=== PATIENT | male | born 1945 | race Caucasian/White ===

== ENCOUNTER 2017-07-01 09:33 | Emergency (ER) | payer OTHER, MEDICARE, SELFPAY | END 2017-07-01 10:01 | PROVIDERS: Emergency Provider Emergency Medicine; Family Provider Internal Medicine Adolescent Medicine; PCP Internal Medicine Adolescent Medicine; Visit Provider Emergency Medicine | DX: S01.01XA Laceration without foreign body of scalp, initial encounter (principal); W01.198A Fall on same level from slipping, tripping and stumbling with subsequent striking against other object, initial encounter; Y92.69 Other specified industrial and construction area as the place of occurrence of the external cause; Y99.0 Civilian activity done for income or pay; Z23 Encounter for immunization; Z88.8 Allergy status to other drugs, medicaments and biological substances; K21.9 Gastro-esophageal reflux disease without esophagitis; D64.9 Anemia, unspecified | CPT/HCPCS: 12002; 90471; 90715; 99282 ==

== ENCOUNTER → 2017-08-27 | Outpatient (RCR) | payer MEDICARE, OTHER, SELFPAY | LOC: PT 03-23 12:56 | PROVIDERS: PCP Internal Medicine Adolescent Medicine; Visit Provider Internal Medicine Adolescent Medicine | DX: I89.0 Lymphedema, not elsewhere classified (principal) | CPT/HCPCS: G8987; G8988; G8989; 29580; 87070; 87081; 87186; 97140; 97163; 97530; 97597 ==

== ENCOUNTER → 2017-09-30 12:58 | Outpatient (REF) | payer MEDICARE, SELFPAY | LOC: LAB 12:58 | PROVIDERS: Visit Provider Internal Medicine Adolescent Medicine | DX: S81.801A Unspecified open wound, right lower leg, initial encounter (principal) | CPT/HCPCS: 87070; 87077; 87186; 87205 ==

== ENCOUNTER → 2017-11-29 11:34 | Outpatient (REF) | payer MEDICARE, SELFPAY | LOC: LAB 11:34 | PROVIDERS: Visit Provider Internal Medicine Adolescent Medicine | DX: L03.115 Cellulitis of right lower limb (principal) | CPT/HCPCS: 87070; 87077; 87186; 87205 ==

== ENCOUNTER 2018-04-04 11:29 | Inpatient (IN) ==
[2018-04-04 13:07] LABS: Basophils # 0.1 K/mm3 (0-0.2); Basophils % 0.7 % (0.1-2.0); Eosinophils # 0.7 K/mm3 (0.0-0.4); Eosinophils % 5.7 % (0.1-12.0); Hematocrit 39.3 % (42.0-52.0); Hemoglobin 12.7 g/dL (14.1-18.0); Lymphocytes # 2.6 K/mm3 (0.7-4.5); Lymphocytes % 20.7 K/mm3 (10-50); Mean Corpuscular HGB Conc 32.3 g/dL (31.8-35.4); Mean Corpuscular Hemoglobin 29.2 pg (27.0-31.2); Mean Corpuscular Volume 90.2 fl (80-94); Mean Platelet Volume 6.6 fl (7.4-10.4); Monocytes # 0.7 K/mm3 (0.1-1.0); Monocytes % 5.6 % (1.7-9.3); Neutrophils # 8.5 K/mm3 (1.8-7.8); Neutrophils % 67.3 % (37.0-80.0); Platelet Count 467 K/mm3 (142-424); Red Blood Count 4.35 M/mm3 (4.60-6.20); Red Cell Distribution Width 13.6 % (11.5-17.5); White Blood Count 12.6 K/mm3 (4.8-10.8)
[2018-04-04 13:16] LABS: Albumin Level 3.2 gm/dL (3.4-5.0); Albumin/Globulin Ratio 0.6 (1.1-1.8); Anion Gap 12.7 mEq/L (5-15); Bilirubin,Total 0.3 mg/dL (0.2-1.0); Calcium 8.4 mg/dL (8.5-10.1); Globulin 5.1 gm/dl (1.3-3.2); Potassium 4.7 mmoL/L (3.5-5.1); Total Protein,Serum 8.3 gm/dL (6.4-8.2)
--- NOTE | 2018-04-04 13:57 | Pharmacy Consult Notes ---
- Pharmacy Consult Date: 04/04/18 Time: 13:55 Referring provider: DR. MATIAS Reason for Consult:: VANCOMYCIN DOSING Allergies and ADEs:: Allergies Allergy/AdvReac Type Severity Reaction Status Date / Time Antihistamines - Alkylamine Allergy Mild MADE SKIN Verified 04/04/18 13:06 [ANTIHISTAMINES - ALKYLAMINE] FEEL LIKE ON FIRE NSAIDS (Non-Steroidal AdvReac Severe kidney Verified 04/04/18 12:08 Anti-Inflamma failure Home Medications:: Home Medications Medication Instructions Recorded Confirmed Type carvedilol 25 mg tablet 25 mg PO BID 30 Days #60 01/17/18 04/04/18 History fluticasone 50 mcg/actuation nasal 50 mcg INTRANASAL HS 60 Days #16 01/17/1802/14 History spray,suspension tamsulosin 0.4 mg capsule 0.4 mg PO DAILY 90 Days #90 01/17/18 04/04/18 History Aspirin [Aspirin 81mg chewable 81 mg PO DAILY 04/04/18 04/04/18 History tab] raNITIdine HCl [Ranitidine HCl] 150 mg PO BID 04/04/18 04/04/18 History Height: 1.73 m Weight: 129.019 kg Laboratory Results:: Laboratory Results - last 24 hr 04/04/18 12:51: WBC 12.6 H, RBC 4.35 L, Hgb 12.7 L, Hct 39.3 L, MCV 90.2, MCH 29.2, MCHC 32.3, RDW 13.6, Plt Count 467 H, MPV 6.6 L, Neut % (Auto) 67.3, Lymph % (Auto) 20.7, [place] % (Auto) 5.6, Eos % (Auto) 5.7, Baso % (Auto) 0.7, Neut # (Auto) 8.5 H, Lymph # (Auto) 2.6, [place] # (Auto) 0.7, Eos # (Auto) 0.7 H, Baso # (Auto) 0.1 04/04/18 12:51: Sodium 138, Potassium 4.7, Chloride 104, Carbon Dioxide 26, Anion Gap 12.7, BUN 18, Creatinine 1.23, Estimated Creat Clear 53, Estimated GFR 58 L, Est GFR ( Amer) 70, Glucose 98, Calcium 8.4 L, Total Bilirubin 0.3, AST 10 L, ALT 20, Alkaline Phosphatase 102, Total Protein 8.3 H, Albumin 3.2 L, Globulin 5.1 H, Albumin/Globulin Ratio 0.6 L Medical History: Reports:: Hypertension Denies:: Cancer, Diabetes Mellitus Type 1, Diabetes Mellitus Type 2, MRSA Assessment and Plan - Assessment and plan all Dx Assessment and Plan for all problems:: BASED ON PATIENT FACTORS, RECOMMEND VANCOMYCIN 2250 MG IV Q18H. PHARMACY WILL OBTAIN VANCOMYCIN TROUGH LEVEL PRIOR TO 4TH DOSE. PHARMACY WILL FOLLOW DAILY AND ADJUST APPROPRIATE.
--- NOTE | 2018-04-04 14:23 | Pharmacy Consult Notes ---
[facility] Pharmacy VTE Monitoring - Patient Demographics Admission date: 04/04/18 Report Date: 04/04/18 Time: 14:22 Allergies/Adverse Reactions: Patient Allergies Antihistamines - Alkylamine [ANTIHISTAMINES - ALKYLAMINE] Allergy (Mild, Verified 04/04/18 13:06) MADE SKIN FEEL LIKE ON FIRE NSAIDS (Non-Steroidal Anti-Inflamma Adverse Reaction (Severe, Verified 04/04/18 12:08) kidney failure Height: 1.73 m Weight: 129.019 kg - VTE Risk Labs: VTE Related Lab Results Hgb 12.7 g/dL (14.1-18.0) L 04/04/18 12:51 Hct 39.3 % (42.0-52.0) L 04/04/18 12:51 Plt Count 467 K/mm3 (142-424) H 04/04/18 12:51 BUN 18 mg/dL (7-18) 04/04/18 12:51 Creatinine 1.23 mg/dL (0.70-1.30) 04/04/18 12:51 Estimated Creat Clear 53 mL/min (0-300) 04/04/18 12:51 Was VTE Risk Assessment Performed: Yes VTE Score: 2 VTE Risk Level: Very Low Risk Clinical Trial Participant: No - Prophylaxis VTE Prophylaxis Ordered?: Yes Types of VTE Prophylaxis: TEDS Knee High
--- NOTE | 2018-04-04 17:42 | History & Physical Report ---
*Admission Date: 04/04/18 *Chief complaint: Left leg infection *History of present illness: 72-year-old white male with remote history in the late of an insect bite, possibly a brown recluse bite that caused significant tissue damage and chronic lymphedema as a residual effect of this injury. Since he has been my patient over the past 3-4 years he has had recurrent lymphedema problems, and recurrent cellulitis problems of the lower extremities , worse on the left. He came to the office today noting that yesterday he began to have foul- smelling drainage from all around the left calf, rivera and foot. In the office he was found to have exceedingly foul-smelling drainage from the knee down, in a circumferential very sharply demarcated area that corresponded to his recently placed lymphedema wrappings. There was a significant amount of sloughed skin both in between the toes and on the dorsum of the foot and up the rivera with exceedingly purulent material and foul-smelling drainage. Interestingly, over the past couple of months he has been seen by [facility] cardiology and has had vascular interventions to try to improve blood flow to both lower extremities. The left has been completed, the right side is pending with some type of procedure that he is unfamiliar with. Currently we have a record deficit. He has been treated multiple times in the [facility] lymphedema clinic with compression therapy and overall has been improving over the past several months. [facility] History I have reviewed the patient's past medical history: Yes Medical History: Reports:: Hypertension Denies:: Cancer, Diabetes Mellitus Type 1, Diabetes Mellitus Type 2, MRSA Other Medical History: Reports: Arthritis, Cataracts Comment: Chronic lymphedema. Chronic left lower extremity cellulitis. Peripheral arterial disease. Acute kidney injury secondary to NSAIDs Laterality Cases: Left: Total Hip Replacement Amputation: No - *Social History Educational Level: Completed College Smoking Status: Former smoker Tobacco Type: cigars # Packs/Day (cigarettes): 0 #Yrs smoked (if former smoker): 0 Alcohol Intake: never Alcohol Intake Frequency:: other Substance Use Type: denies use Occupational Status: employed Household Members: none - Psychiatric History Expresses thoughts of harming self/others: None Suicide Plan Description: No Plan *Family Hx:: Hypertension, Heart Attack Review of Systems - Review of Systems Review of systems:: pertinent systems reviewed and negative unless documented below - *Cardiovascular Reports leg swelling, Reports leg sores, Reports foot swelling, Denies shortness of breath, Denies irregular heart rhythm - *Respiratory Denies chest congestion, Denies cough - *Gastrointestinal Denies abdominal pain, Denies belching, Denies bloating, Denies change in bowel habits - *Genitourinary Reports difficulty urinating, Reports urinary urgency Meds Home Medications Medication Instructions Recorded Confirmed Type carvedilol 25 mg tablet 25 mg PO BID 30 Days #60 01/17/18 04/04/18 History fluticasone 50 mcg/actuation nasal 50 mcg INTRANASAL HS 60 Days #16 01/17/1802/14 History spray,suspension Aspirin [Aspirin 81mg chewable 81 mg PO DAILY 04/04/18 04/04/18 History tab] Tamsulosin HCl [Flomax 0.4mg 0.4 mg PO DAILY 04/04/18 04/04/18 History capsule] raNITIdine HCl [Ranitidine HCl] 150 mg PO BID 04/04/18 04/04/18 History Allergies Allergy/AdvReac Type Severity Reaction Status Date / Time Antihistamines - Alkylamine Allergy Mild MADE SKIN Verified 04/04/18 13:06 [ANTIHISTAMINES - ALKYLAMINE] FEEL LIKE ON FIRE NSAIDS (Non-Steroidal AdvReac Severe kidney Verified 04/04/18 12:08 Anti-Inflamma failure Exam Vital signs and Labs for Last 24 Hours: Temp Pulse Resp BP Pulse Ox 98.0 F 67 18 143/75 99 04/04/18 15:42 04/04/18 15:42 04/04/18 15:42 04/04/18 15:42 04/04/18 15:42 Laboratory Results - last 24 hr 04/04/18 12:51: WBC 12.6 H, RBC 4.35 L, Hgb 12.7 L, Hct 39.3 L, MCV 90.2, MCH 29.2, MCHC 32.3, RDW 13.6, Plt Count 467 H, MPV 6.6 L, Neut % (Auto) 67.3, Lymph % (Auto) 20.7, [place] % (Auto) 5.6, Eos % (Auto) 5.7, Baso % (Auto) 0.7, Neut # (Auto) 8.5 H, Lymph # (Auto) 2.6, [place] # (Auto) 0.7, Eos # (Auto) 0.7 H, Baso # (Auto) 0.1 04/04/18 12:51: Sodium 138, Potassium 4.7, Chloride 104, Carbon Dioxide 26, Anion Gap 12.7, BUN 18, Creatinine 1.23, Estimated Creat Clear 53, Estimated GFR 58 L, Est GFR ( Amer) 70, Glucose 98, Calcium 8.4 L, Total Bilirubin 0.3, AST 10 L, ALT 20, Alkaline Phosphatase 102, Total Protein 8.3 H, Albumin 3.2 L, Globulin 5.1 H, Albumin/Globulin Ratio 0.6 L I & O for Last 24 hours: Intake & Output 04/02/18 04/03/18 04/04/18 04/05/18 11:59 11:59 11:59 11:59 Intake Total 960 / 960 Output Total 600 / 600 Balance 360 / 360 Weight 284 lb 7 oz 284 lb 7 oz Microbiology Reports for the Last 24 Hours: Microbiology 04/04/18 12:51 Foot,Left Gram Stain - Final Narrative: Patient is pleasant, talkative, oriented in no distress. Cranial nerves intact. Cardiac exam is unremarkable with regular rate and rhythm, lungs are clear, abdomen is obese but soft. Leg examination is significantly abnormal as noted in my HPI. Redness, skin sloughing and foul-smelling drainage in a circumferential pattern around the entire left leg from just below the knee and a sharply demarcated stocking pattern down to the foot in between the toes and involving almost all of the toes. Weeping and purulent drainage from this entire area - the right leg is swollen with slight evidence of lymphedema but no evidence of cellulitis. H&P: Result - Labs Labs: Short CBC 04/04/18 Range/Units 12:51 WBC 12.6 H (4.8-10.8) K/mm3 Hgb 12.7 L (14.1-18.0) g/dL Hct 39.3 L (42.0-52.0) % Plt Count 467 H (142-424) K/mm3 BMP 04/04/18 12:51 Sodium 138 Potassium 4.7 Chloride 104 Carbon Dioxide 26 BUN 18 Creatinine 1.23 Glucose 98 Calcium 8.4 L Liver Function 08/06/18 Range/Units 12:51 Total Bilirubin 0.3 (0.2-1.0) mg/dL AST 10 L (15-37) U/L ALT 20 (12-78) U/L Alkaline Phosphatase 102 (46-116) U/L Albumin 3.2 L (3.4-5.0) gm/dL Assessment and Plan (1) Left leg cellulitis Current visit: Yes Status: Acute Category: Medical Code(s): L03.116 - Cellulitis of left lower limb Significant cellulitis with large area of leg involved. Requires IV antibiotics , admit for blood cultures. High risk of bloodstream infection. Currently no evidence of sepsis. Podiatry evaluation. Vancomycin and clindamycin for initial therapy while we await cultures. (2) Peripheral vascular disease Current visit: Yes Status: Acute Category: Medical Code(s): I73.9 - Peripheral vascular disease, unspecified Try to obtain records from [facility]. (3) Chronic acquired lymphedema Current visit: Yes Status: Acute Category: Medical Code(s): I89.0 - Lymphedema, not elsewhere classified See notes above. Continue observation (4) Morbid obesity with BMI of 40.0-44.9, adult Current visit: Yes Status: Acute Category: Medical Code(s): E66.01 - Morbid (severe) obesity due to excess calories; Z68.41 - Body mass index (BMI) 40.0-44.9, adult Obesity complicates all aspects of his care (5) Hypertension Current visit: Yes Status: Acute Category: Medical Code(s): I10 - Essential (primary) hypertension Remains on carvedilol (6) BPH (benign prostatic hyperplasia) Current visit: Yes Status: Acute Category: Medical Code(s): N40.0 - Benign prostatic hyperplasia without lower urinary tract symptoms Has some urgency symptoms on review of systems. Remains on tamsulosin
[2018-04-05 06:09] LABS: Basophils # 0.1 K/mm3 (0-0.2); Basophils % 0.7 % (0.1-2.0); Eosinophils # 0.5 K/mm3 (0.0-0.4); Eosinophils % 5.5 % (0.1-12.0); Lymphocytes # 2.5 K/mm3 (0.7-4.5); Lymphocytes % 27.3 K/mm3 (10-50); Mean Corpuscular HGB Conc 32.5 g/dL (31.8-35.4); Mean Corpuscular Hemoglobin 29.7 pg (27.0-31.2); Mean Corpuscular Volume 91.2 fl (80-94); Mean Platelet Volume 6.4 fl (7.4-10.4); Monocytes # 0.7 K/mm3 (0.1-1.0); Monocytes % 7.5 % (1.7-9.3); Neutrophils # 5.3 K/mm3 (1.8-7.8); Neutrophils % 58.9 % (37.0-80.0); Platelet Count 421 K/mm3 (142-424); Red Blood Count 3.85 M/mm3 (4.60-6.20); Red Cell Distribution Width 13.7 % (11.5-17.5); White Blood Count 9.1 K/mm3 (4.8-10.8)
[2018-04-05 06:17] LABS: Hemoglobin 11.6 g/dL (14.1-18.0)
[2018-04-05 06:18] LABS: Hematocrit 35.7 % (42.0-52.0)
[2018-04-05 06:31] LABS: Anion Gap 10.4 mEq/L (5-15); Potassium 4.4 mmoL/L (3.5-5.1)
--- NOTE | 2018-04-05 08:30 | Consult Report ---
*Admission Date: 04/04/18 *Chief complaint: Cellulitis *History of present illness: Mr. Mckeon is resting comfortably in bed. He reports some pain to the left 2- 3rd toes. Patient reports [facility] He reports several days after procedure there was increase fluid drainage and smell to the LLE. He is scheduled for vein surgery on right LE, in a few weeks. Patient saw Dr. Montana yesterday and was admitted for foul smelling left LE drainage. Per Dr. Montana 04/04/18: 72-year-old white male with remote history in the late of an insect bite, possibly a brown recluse bite that caused significant tissue damage and chronic lymphedema as a residual effect of this injury. Since he has been my patient over the past 3-4 years he has had recurrent lymphedema problems, and recurrent cellulitis problems of the lower extremities, worse on the left. He came to the office today noting that yesterday he began to have foul-smelling drainage from all around the left calf, rivera and foot. In the office he was found to have exceedingly foul-smelling drainage from the knee down, in a circumferential very sharply demarcated area that corresponded to his recently placed lymphedema wrappings. There was a significant amount of sloughed skin both in between the toes and on the dorsum of the foot and up the rivera with exceedingly purulent material and foul-smelling drainage. Interestingly, over the past couple of months he has been seen by [facility] cardiology and has had vascular interventions to try to improve blood flow to both lower extremities. The left has been completed, the right side is pending with some type of procedure that he is unfamiliar with. Currently we have a record deficit. He has been treated multiple times in the [facility] lymphedema clinic with compression therapy and overall has been improving over the past several months. Review of Systems - Review of Systems Review of systems:: pertinent systems reviewed and negative unless documented below - Constitutional Denies chills, Denies fatigue, Denies weakness - Eyes Denies blurry vision - ENT Denies abnormal hearing - *Cardiovascular Reports leg swelling, Denies shortness of breath - *Respiratory Denies cough, Denies shortness of breath - *Gastrointestinal Reports change in bowel habits, Reports loose stools - *Genitourinary Denies difficulty urinating - *Musculoskeletal Denies abnormal walking, Denies numbness - *Neurologic Denies abnormal walking [facility] History Medical History: Reports:: Hypertension Denies:: Cancer, Diabetes Mellitus Type 1, Diabetes Mellitus Type 2, MRSA Other Medical History: Reports: Arthritis, Cataracts Laterality Cases: Left: Total Hip Replacement Amputation: No - *Social History Educational Level: Completed College Smoking Status: Former smoker Tobacco Type: cigars # Packs/Day (cigarettes): 0 #Yrs smoked (if former smoker): 0 Alcohol Intake: never Alcohol Intake Frequency:: other Substance Use Type: denies use Occupational Status: employed Household Members: none - Psychiatric History Expresses thoughts of harming self/others: None Suicide Plan Description: No Plan *Family Hx:: Hypertension, Heart Attack Meds Home Medications Medication Instructions Recorded Confirmed Type carvedilol 25 mg tablet 25 mg PO BID 30 Days #60 01/17/18 04/04/18 History fluticasone 50 mcg/actuation nasal 1 spr INTRANASAL HS 60 Days #16 01/17/1803/16 History spray,suspension Aspirin [Aspirin 81mg chewable 81 mg PO DAILY 04/04/18 04/04/18 History tab] Tamsulosin HCl [Flomax 0.4mg 0.4 mg PO HS 04/04/18 04/05/18 History capsule] raNITIdine HCl [Ranitidine HCl] 150 mg PO BID 04/04/18 04/04/18 History Allergies Allergy/AdvReac Type Severity Reaction Status Date / Time Antihistamines - Alkylamine Allergy Mild MADE SKIN Verified 04/04/18 13:06 [ANTIHISTAMINES - ALKYLAMINE] FEEL LIKE ON FIRE NSAIDS (Non-Steroidal AdvReac Severe kidney Verified 04/04/18 12:08 Anti-Inflamma failure Exam Vital signs and Labs for Last 24 Hours: Temp Pulse Resp BP Pulse Ox 98.0 F 58 L 20 157/87 97 04/05/18 07:54 04/05/18 07:54 04/05/18 07:54 04/05/18 07:54 04/05/18 07:54 Laboratory Results - last 24 hr 04/04/18 12:51: WBC 12.6 H, RBC 4.35 L, Hgb 12.7 L, Hct 39.3 L, MCV 90.2, MCH 29.2, MCHC 32.3, RDW 13.6, Plt Count 467 H, MPV 6.6 L, Neut % (Auto) 67.3, Lymph % (Auto) 20.7, [place] % (Auto) 5.6, Eos % (Auto) 5.7, Baso % (Auto) 0.7, Neut # (Auto) 8.5 H, Lymph # (Auto) 2.6, [place] # (Auto) 0.7, Eos # (Auto) 0.7 H, Baso # (Auto) 0.1 04/04/18 12:51: Sodium 138, Potassium 4.7, Chloride 104, Carbon Dioxide 26, Anion Gap 12.7, BUN 18, Creatinine 1.23, Estimated Creat Clear 53, Estimated GFR 58 L, Est GFR ( Amer) 70, Glucose 98, Calcium 8.4 L, Total Bilirubin 0.3, AST 10 L, ALT 20, Alkaline Phosphatase 102, Total Protein 8.3 H, Albumin 3.2 L, Globulin 5.1 H, Albumin/Globulin Ratio 0.6 L 04/05/18 05:24: WBC 9.1 D, RBC 3.85 L, Hgb 11.6 L, Hct 35.7 L, MCV 91.2, MCH 29.7, MCHC 32.5, RDW 13.7, Plt Count 421, MPV 6.4 L, Neut % (Auto) 58.9, Lymph % (Auto) 27.3, [place] % (Auto) 7.5, Eos % (Auto) 5.5, Baso % (Auto) 0.7, Neut # ( Auto) 5.3, Lymph # (Auto) 2.5, [place] # (Auto) 0.7, Eos # (Auto) 0.5 H, Baso # ( Auto) 0.1 04/05/18 05:24: Sodium 139, Potassium 4.4, Chloride 107, Carbon Dioxide 26, Anion Gap 10.4, BUN 17, Creatinine 1.17, Estimated Creat Clear 56, Estimated GFR 61, Est GFR ( Amer) 74, Glucose 97, Calcium 8.0 L I & O for Last 24 hours: Intake & Output 04/02/18 04/03/18 04/04/1807/18 11:59 11:59 11:59 11:59 Intake Total 1200 / 1200 Output Total 850 / 850 Balance 350 / 350 Weight 284 lb 7 oz 284 lb 7 oz Microbiology Reports for the Last 24 Hours: Microbiology 04/04/18 12:51 Foot,Left Gram Stain - Final 04/04/18 12:51 Foot,Left Wound Culture - Preliminary Gram Negative Rods - *Routine HEENT Exam Head: Present: normocephalic - *Routine Neck Exam Absent: JVD - *Routine Respiratory Exam Absent: respiratory distress - *Routine Cardiovascular Exam Present: RRR - *Routine Abdominal Exam Present: soft. Absent: guarding - *Routine Rectal Exam Patient deferred: visual exam - *Routine Exam Patient deferred: penile exam - *Routine Extremities Exam Present: edema, pulses intact, normal capillary refill, tenderness - *Routine Skin Exam Present: erythema - *Routine Neurological Exam Present: alert - Detailed Lower Extremity Exam Foot/Toes: Left swelling (L 2-3rd toes), Left tenderness (L 2-3rd toes) Comments: Palpable pedal pulses noted b/l. CFT wnl. No open wounds on right LE. The right leg is swollen with slight evidence of lymphedema but no evidence of cellulitis. There is 1+ pitting edema noted to LLE. Redness, skin sloughing noted from gator ankle region, in a circumferential pattern. No malodor noted. No active weeping and purulent drainage. There is erythema with no deep wounds noted to the lateral left foot/ankle. The left 2-3rd toes have POP, edema and erythema with no open wounds or areas that probe deeply. No increased skin temp. Results - Labs Result Diagrams: 04/05/18 05:24 04/05/18 05:24 Labs: Abnormal lab results 04/04/18 04/04/18 04/05/18 Range/Units 12:51 12:51 05:24 WBC 12.6 H (4.8-10.8) K/mm3 RBC 4.35 L 3.85 L (4.60-6.20) M/mm3 Hgb 12.7 L 11.6 L (14.1-18.0) g/dL Hct 39.3 L 35.7 L (42.0-52.0) % Plt Count 467 H (142-424) K/mm3 MPV 6.6 L 6.4 L (7.4-10.4) fl Neut # (Auto) 8.5 H (1.8-7.8) K/mm3 Eos # (Auto) 0.7 H 0.5 H (0.0-0.4) K/mm3 Estimated GFR 58 L (>60) ml/min Calcium 8.4 L (8.5-10.1) mg/dL AST 10 L (15-37) U/L Total Protein 8.3 H (6.4-8.2) gm/dL Albumin 3.2 L (3.4-5.0) gm/dL Globulin 5.1 H (1.3-3.2) gm/dl Albumin/Globulin Ratio 0.6 L (1.1-1.8) 04/05/18 Range/Units 05:24 WBC (4.8-10.8) K/mm3 RBC (4.60-6.20) M/mm3 Hgb (14.1-18.0) g/dL Hct (42.0-52.0) % Plt Count (142-424) K/mm3 MPV (7.4-10.4) fl Neut # (Auto) (1.8-7.8) K/mm3 Eos # (Auto) (0.0-0.4) K/mm3 Estimated GFR (>60) ml/min Calcium 8.0 L (8.5-10.1) mg/dL AST (15-37) U/L Total Protein (6.4-8.2) gm/dL Albumin (3.4-5.0) gm/dL Globulin (1.3-3.2) gm/dl Albumin/Globulin Ratio (1.1-1.8) H & H 18 04/05/18 Range/Units 12:51 05:24 Hgb 12.7 L 11.6 L (14.1-18.0) g/dL Hct 39.3 L 35.7 L (42.0-52.0) % All other labs normal. - Diagnostic results Ankle/Foot x-ray: pending Assessment and Plan (1) Left leg cellulitis Current visit: Yes Status: Acute Category: Medical Code(s): L03.116 - Cellulitis of left lower limb (2) Peripheral vascular disease Current visit: Yes Status: Acute Category: Medical Code(s): I73.9 - Peripheral vascular disease, unspecified (3) Chronic acquired lymphedema Current visit: Yes Status: Acute Category: Medical Code(s): I89.0 - Lymphedema, not elsewhere classified (4) Morbid obesity with BMI of 40.0-44.9, adult Current visit: Yes Status: Acute Category: Medical Code(s): E66.01 - Morbid (severe) obesity due to excess calories; Z68.41 - Body mass index (BMI) 40.0-44.9, adult (5) Hypertension Current visit: Yes Status: Acute Category: Medical Code(s): I10 - Essential (primary) hypertension (6) BPH (benign prostatic hyperplasia) Current visit: Yes Status: Acute Category: Medical Code(s): N40.0 - Benign prostatic hyperplasia without lower urinary tract symptoms - Assessment and plan all Dx Assessment and Plan for all problems:: LLE Cellulitis: Discussed cellulitis with the patient. Likely after his procedure last week he had a hypervascular response with increased lymph drainage. Will order x-rays to rule out underlying soft tissue gas infection no open wound or obvious signs of osteomyelitis. Patient seems to be responding to the IV antibiotics consistent with cellulitis, improved clinical symptoms and decreased wbc. 1. X-rays left foot and ankle 3 views 2. If x-rays negative for gas infection, canceling n.p.o. and no surgical intervention planned 3. Continue IV antibiotics: Vanco, clindamycin 4. Continue compressive wraps to bilateral LE 5. Upon discharge, RLE will need compression stockings 6. Obtain medical records from [facility] for Dr. Velazquez's procedure
--- NOTE | 2018-04-05 17:26 | Progress Note ---
Internal Medicine - PN: Subj *Date: 04/05/18 *Time: 17:19 Interval history: Patient has remained afebrile overnight. Improvement in malodorous nature of wound. Assessed by podiatry this morning with new bandages placed. Improvement drainage and warmth after initiation of IV antibiotics. Denies any nausea, vomiting, diarrhea, confusion, significant pain in lower extremity. Requesting his home meds even though he is n.p.o. Exam Vital signs and Labs for Last 24 Hours: Temp Pulse Resp BP Pulse Ox 97.9 F 59 L 20 132/62 97 04/05/18 15:53 04/05/18 15:53 04/05/18 15:53 04/05/18 15:53 04/05/18 15:53 Laboratory Results - last 24 hr 04/05/18 05:24: WBC 9.1 D, RBC 3.85 L, Hgb 11.6 L, Hct 35.7 L, MCV 91.2, MCH 29.7, MCHC 32.5, RDW 13.7, Plt Count 421, MPV 6.4 L, Neut % (Auto) 58.9, Lymph % (Auto) 27.3, Mccreary % (Auto) 7.5, Eos % (Auto) 5.5, Baso % (Auto) 0.7, Neut # ( Auto) 5.3, Lymph # (Auto) 2.5, Mccreary # (Auto) 0.7, Eos # (Auto) 0.5 H, Baso # ( Auto) 0.1 04/05/18 05:24: Sodium 139, Potassium 4.4, Chloride 107, Carbon Dioxide 26, Anion Gap 10.4, BUN 17, Creatinine 1.17, Estimated Creat Clear 56, Estimated GFR 61, Est GFR ( Amer) 74, Glucose 97, Calcium 8.0 L I & O for Last 24 hours: Intake & Output 04/02/18 04/03/18 04/04/18 04/05/18 23:59 23:59 23:59 23:59 Intake Total 1200 / 1200 578 / 578 Output Total 850 / 850 1875 / 1875 Balance 350 / 350 -1297 / -1297 Weight 129.019 kg Microbiology Reports for the Last 24 Hours: Microbiology 04/04/18 12:51 Foot,Left Gram Stain - Final 04/04/18 12:51 Foot,Left Wound Culture - Preliminary Gram Negative Rods - *Routine HEENT Exam Head: Present: normocephalic, atraumatic Eye: Present: EOMI, PERRL ENT: Present: mucous membranes moist - *Routine Neck Exam Present: supple. Absent: lymphadenopathy - *Routine Respiratory Exam Present: CTA bilaterally. Absent: rales, stridor, wheezes - *Routine Cardiovascular Exam Present: RRR, Normal S1, Normal S2 - *Routine Abdominal Exam Present: soft, normoactive bowel sounds - *Routine Rectal Exam Patient deferred: visual exam - *Routine Exam Patient deferred: penile exam - *Routine Extremities Exam Present: edema Comments: Diminished pulses bilateral lower extremities in both DP and posterior tibial. New dressings in place with iodine on left foot. Chronic venous stasis changes in visible portion of lower extremity outside of bandage. Capillary refill intact in toes, sensation intact in toes. - *Routine Skin Exam Present: intact. Absent: cyanosis - *Routine Neurological Exam Present: alert, oriented X3 Assessment and Plan (1) Left leg cellulitis Current visit: Yes Status: Acute Category: Medical Code(s): L03.116 - Cellulitis of left lower limb (2) Peripheral vascular disease Current visit: Yes Status: Acute Category: Medical Code(s): I73.9 - Peripheral vascular disease, unspecified (3) Chronic acquired lymphedema Current visit: Yes Status: Acute Category: Medical Code(s): I89.0 - Lymphedema, not elsewhere classified (4) Morbid obesity with BMI of 40.0-44.9, adult Current visit: Yes Status: Acute Category: Medical Code(s): E66.01 - Morbid (severe) obesity due to excess calories; Z68.41 - Body mass index (BMI) 40.0-44.9, adult (5) Hypertension Current visit: Yes Status: Acute Category: Medical Code(s): I10 - Essential (primary) hypertension (6) BPH (benign prostatic hyperplasia) Current visit: Yes Status: Acute Category: Medical Code(s): N40.0 - Benign prostatic hyperplasia without lower urinary tract symptoms - Assessment and plan all Dx Assessment and Plan for all problems:: Mr. Mckeon is a 72-year-old male with chronic venous stasis, obesity, peripheral vascular disease who presented with cellulitis of the left foot. Podiatry has assessed the patient and has low suspicion for osteomyelitis. -Podiatry continues to follow along, appreciate recommendations. They feel this may be related to increased vascular supply due to revascularization recently with increased lymphatic drainage putting patient at risk for infection. -Obtaining x-rays of left foot and ankle today -Continue IV antibiotics, responded well -Continue compressive wraps on bilateral lower extremity -If no surgical intervention, de-escalate to oral antibiotics over the next 24- 48 hours and plan for discharge home with outpatient follow-up -Dr. Velazquez records in chart.
--- NOTE | 2018-04-06 07:52 | Discharge Summary ---
General - General Admission date:: 04/04/18 Discharge date: 04/06/18 HPI HPI: Mr. Mckeon is resting comfortably in bed. He reports some pain to the left 2- 3rd toes. Patient reports having a "vein procedure" with Dr. Velazquez at [facility] last week. He reports several days after procedure there was increase fluid drainage and smell to the LLE. He is scheduled for vein surgery on right LE, in a few weeks. Patient saw Dr. Montana yesterday and was admitted for foul smelling left LE drainage. Per Dr. Montana 04/04/18: 72-year-old white male with remote history in the late of an insect bite, possibly a brown recluse bite that caused significant tissue damage and chronic lymphedema as a residual effect of this injury. Since he has been my patient over the past 3-4 years he has had recurrent lymphedema problems, and recurrent cellulitis problems of the lower extremities, worse on the left. He came to the office today noting that yesterday he began to have foul-smelling drainage from all around the left calf, rivera and foot. In the office he was found to have exceedingly foul-smelling drainage from the knee down, in a circumferential very sharply demarcated area that corresponded to his recently placed lymphedema wrappings. There was a significant amount of sloughed skin both in between the toes and on the dorsum of the foot and up the rivera with exceedingly purulent material and foul-smelling drainage. Interestingly, over the past couple of months he has been seen by [facility] cardiology and has had vascular interventions to try to improve blood flow to both lower extremities. The left has been completed, the right side is pending with some type of procedure that he is unfamiliar with. Currently we have a record deficit. He has been treated multiple times in the [facility] lymphedema clinic with compression therapy and overall has been improving over the past several months. Above notes per me and Dr. Brito. Hospital Course Hospital Course: Patient was admitted to hospital. Podiatry consult was obtained, reviewed and appreciated. X-rays were obtained showing no gas formation under the skin and patient responded well to IV antibiotics. Initial Gram stain showed gram-negative rods on the surface of the leg. Patient did well this morning, feeling well, eating well, no fevers. Determination was made that patient could be discharged with ongoing wrapping, Augmentin therapy and close follow-up in the office with podiatry and with lymphedema clinic. Objective Vital signs: Temp Pulse Resp BP Pulse Ox 97.8 F 54 L 16 142/65 93 L 04/06/18 04:00 04/06/18 04:00 04/06/18 04:00 04/06/18 04:00 04/06/18 04:00 Narrative: Patient is alert and pleasant and oriented today. Cardiopulmonary assessment unremarkable. Patient's left leg is wrapped from the knee to the toes, there is apparently less swelling. Patient denies pain. Able to wiggle the toes outside of the dressing well. Right side lower extremity is slightly swollen but at baseline, no evidence of cellulitis. Results Labs on day of discharge: Preliminary micro results at discharge 04/04/18 12:51 Wound Culture - Preliminary Foot,Left Gram Negative Rods DS: Diagnosis - Discharge Diagnosis (1) Left leg cellulitis Status: Acute (2) Peripheral vascular disease Status: Acute (3) Chronic acquired lymphedema Status: Acute (4) Morbid obesity with BMI of 40.0-44.9, adult Status: Acute (5) Hypertension Status: Acute (6) BPH (benign prostatic hyperplasia) Status: Acute Discharge Plan - Patient Discharge Instructions ACTIVITY: Continue current activity DIET: continue same diet - Follow up Plan Follow up with: Keila Brito DPM [Staff Physician] - 2 days Unknown provider or service follow up:: 04/06/18 07:50 Lymphedema clinic in 24 hours Disposition: Home, Self-Halfway Medications: Home Medications Medication Instructions Recorded Confirmed Type carvedilol 25 mg tablet 25 mg PO BID 30 Days #60 01/17/18 04/04/18 History fluticasone 50 mcg/actuation nasal 1 spr INTRANASAL HS 60 Days #16 01/17/1803/16 History spray,suspension Aspirin [Aspirin 81mg chewable 81 mg PO DAILY 04/04/18 04/04/18 History tab] Tamsulosin HCl [Flomax 0.4mg 0.4 mg PO HS 04/04/18 04/05/18 History capsule] raNITIdine HCl [Ranitidine HCl] 150 mg PO BID 04/04/18 04/04/18 History Prescriptions/Medication Reconciliation: New Amoxicillin/Potassium Clav [Augmentin 875-125 Tablet] 1 tab PO Q12H #20 tab Continue carvedilol 25 mg tablet 25 mg PO BID 30 Days #60 fluticasone 50 mcg/actuation nasal spray,suspension 1 spr INTRANASAL HS 60 Days #16 raNITIdine HCl [Ranitidine HCl] 150 mg PO BID Aspirin [Aspirin 81mg chewable tab] 81 mg PO DAILY Tamsulosin HCl [Flomax 0.4mg capsule] 0.4 mg PO HS
--- NOTE | 2018-04-06 08:09 | Progress Note ---
Subjective Date: 04/06/18 Time: 07:45 Principal diagnosis: LLE Cellulitis Interval history: Patient is resting comfortably in bed. He denies nausea vomiting, fever chills , shortness of breath and chest pain. Pain to the left foot has significantly decreased. No pain to the right foot. PN: Obj Ex Vital signs: Temp Pulse Resp BP Pulse Ox 97.8 F 54 L 16 142/65 93 L 04/06/18 04:00 04/06/18 04:00 04/06/18 04:00 04/06/18 04:00 04/06/18 04:00 - Constitutional no acute distress - Routine Neck Exam Present: supple - Routine Extremities Exam Present: edema (improving). Absent: calf tenderness, tenderness - Detailed Lower Extremity Exam Foot/Toes: Left swelling (L 2-3rd toes improving) Comments: The edema has improved to both legs. RLE asymptomatic. There is dry flaky skin noted to both legs and feet. Mild skin sloughing and erythema noted to the lateral aspect of the left ankle. No open wound. The left first through third digits are dry with no skin sloughing noted. Less pain to palpation. Skin temp WNL. Erythema resolved to toes. Progress Note: A&P (1) Left leg cellulitis Status: Acute Current Visit: Yes (2) Peripheral vascular disease Status: Acute Current Visit: Yes (3) Chronic acquired lymphedema Status: Acute Current Visit: Yes (4) Morbid obesity with BMI of 40.0-44.9, adult Status: Acute Current Visit: Yes (5) Hypertension Status: Acute Current Visit: Yes (6) BPH (benign prostatic hyperplasia) Status: Acute Current Visit: Yes Assessment and Plan for All Diagnoses:: LLE Cellulitis: Overall both legs look to be much improved. Right leg is asymptomatic. No dressing reapplied to the right lower extremity. New dressing applied to the left lower extremity with Betadine between the toes and to the left lateral aspect of the ankle. Okay from podiatry standpoint to be discharged home today on oral antibiotics. 1. POC discussed with Dr. Montana 2. Betadine DSD applied to the LLE, maintain C/D/I until follow up 3. Ok to d/c from Podiatry stand point on oral Abx 4. Compression stockings to RLE 5. Will need follow up next week with [facility] for compression therapy 6. Follow up with Podiatry 04/08/18 @0900 for LLE dressing change
== END 2018-04-06 09:26 | disposition home or self-care (01) ==
LOC: 2ND 11:31
PROVIDERS: ADMIT Internal Medicine Adolescent Medicine; ATTEND Internal Medicine Adolescent Medicine

== ENCOUNTER 2018-04-22 14:30 | Outpatient (RCR) | payer MEDICARE, OTHER, SELFPAY ==
--- NOTE | 2017-09-15 15:41 | HMH.PTOPWND ---
Rehab Outpt Wound Evaluation Rehab OP Wound Evaluation Start: 09/13/17 16:04 Freq: Status: Active Protocol: Document 09/13/17 16:04 PAWAN (Rec: 09/13/17 16:22 PHORNE [id number]) Electronically Signed By Jarad Gomes, PT 09/13/17 16:04 Subjective/History History History Pt presents with c/o increased edema and pain in left LE with painful open sores x ~1-2 wks. Pt has been treated extensively in the past for similar conditions and presents to clinic this date with copious drainage and muliple blisters in the left lower leg. He has hx of left CESAR ~ 1-2 yrs ago. Subjective Subjective Pt c/o significant pain throughout the left lower leg, worse along the medial left foot. Wound Eval Side Left Side left Wound Left Medial Foot Wound Type Stasis Ulcer Is This a Chronic Wound No Degree of Burn Partial Thickness Wound Length (cm) 2.0 Wound Width (cm) 3.5 Wound Bed Appearance Dusky Red Yellow Slough Blisters Edematous Percentage Granulated (%) 25 Percentage of Slough (%) 75 Wound Margins Description Macerated Edema Type Pitting Edema Degree 2+ Query Text:1+ Trace, Barely Detectable, Rebound 15-30 seconds 2+ Moderate, Slight Indentation, Rebound 10-20 seconds 3+ Deep, Deeper Indentation, Rebound > 30 seconds 4+ Very Deep, Rebound > 60 seconds Edema Appearance Weeping Puffy Open Sores Red Surrounding Tissue Temperature Warm Drainage Description Serosanguineous Drainage Amount Copious Drainage Odor Slight Odor Dressing Status Changed Wound Topical Solution/Irrigant Saline Irrigant Packing Type Alginate Primary Dressing Unna Boot Wound Secondary Dressing Type Gauze Roll/Wrap Adhering Gauze Roll Wound Debridement Method Mechanical Wound Debridement Amount of Tissue None Removed Dressing Change Dioni
--- NOTE | 2018-01-27 11:31 | HMH.RHREAS ---
Rehab Reassessment Rehab OP Re-assessment Start: 10/21/17 15:18 Freq: Status: Active Protocol: Document 01/27/18 11:27 PAWAN (Rec: 01/27/18 11:30 PAWAN [id number]) Electronically Signed By Jarad Gomes, PT 01/27/18 11:27 Rehab Re-assessment Subjective Subjective Pt continues to reports stinging and burning pain and discomfort in left LE. He also reports continued drainage from left LE. 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 All wounds appear superficial to partial thickness in nature. Assessment Progress Assessment Slower Than Expected Assessment Notes Healing in left LE, copious drainage of serpous fluid and pitting edema remain. Patient goals met ST,3,[address] LT [address]als Not Met ST LT,2,3,4 Revised Goals none Plan Plan Continue per initial POC. Frequency of Therapy 2x/wk Duration of therapy 8 wks Time and Billing Re-Eval Time 15 Re-Eval Billing Units 1 PHYSICIAN CERTIFICATION: I certify the specified therapy services for Riki Mckeon are required, authorized, and reviewed every 30 days.
== END 2018-04-22 14:31 | disposition home or self-care (01) ==
LOC: PT 14:30
PROVIDERS: Family Provider Internal Medicine Adolescent Medicine; PCP Internal Medicine Adolescent Medicine; Visit Provider Internal Medicine Adolescent Medicine
DX: I89.0 Lymphedema, not elsewhere classified (principal)
CPT/HCPCS: 29580; 97140; 97162; 97164; 97597; 97598

== ENCOUNTER → 2018-09-14 09:44 | Outpatient (CLI) | payer MEDICARE, OTHER, SELFPAY | PROVIDERS: Visit Provider Podiatrist | DX: I89.0 Lymphedema, not elsewhere classified (principal) | CPT/HCPCS: 87070; 87077; 87186; 87205 ==

== ENCOUNTER → 2018-11-17 15:43 | Outpatient (CLI) | payer MEDICARE, OTHER, SELFPAY | PROVIDERS: Visit Provider Podiatrist | DX: L03.116 Cellulitis of left lower limb (principal) | CPT/HCPCS: 87070; 87077; 87186; 87205 ==

== ENCOUNTER → 2018-12-14 06:58 | Outpatient (CLI) | payer MEDICARE, OTHER, SELFPAY ==
[2018-12-14 10:42] LABS: Alanine Aminotransferase 23 U/L (12-78); Albumin Level 3.4 gm/dL (3.4-5.0); Albumin/Globulin Ratio 0.9 (1.1-1.8); Alkaline Phosphatase 106 U/L (46-116); Aspartate Amino Transferase 10 U/L (15-37); Bilirubin,Total 0.3 mg/dL (0.2-1.0); Blood Urea Nitrogen 25 mg/dL (7-18); Calcium 8.1 mg/dL (8.5-10.1); Carbon Dioxide 24 mmol/L (21.0-32.0); Chloride 106 mmol/L (98-107); Cholesterol 146 mg/dL (140-200); Creatinine,Serum 1.37 mg/dL (0.70-1.30); Estimated Glomerular Filt Rate 51 ml/min (>60); GFR (African American) 62 ML/MIN (>60); Globulin 3.9 gm/dl (1.3-3.2); Glucose 106 mg/dL (74-106); HDL Cholesterol 49 mg/dL (27-67); LDL Cholesterol 81 mg/dL (0-130); Prostate Specific Ag, Diagnost 1.69 ng/mL (0.0-4.0); Sodium 140 mmol/L (136-145); Total Protein,Serum 7.3 gm/dL (6.4-8.2); Triglycerides 82 mg/dL (30-200); VLDL Cholesterol 16 mg/dL (0-40)
[2018-12-14 12:36] LABS: Basophils # 0.1 K/mm3 (0-0.2); Basophils % 0.9 % (0.1-2.0); Eosinophils # 0.5 K/mm3 (0.0-0.4); Eosinophils % 6.2 % (0.1-12.0); Hematocrit 42.7 % (42.0-52.0); Hemoglobin 13.7 g/dL (14.1-18.0); Lymphocytes # 2.5 K/mm3 (0.7-4.5); Lymphocytes % 30.1 % (10-50); Mean Corpuscular HGB Conc 31.9 g/dL (31.8-35.4); Mean Corpuscular Hemoglobin 29.3 pg (27.0-31.2); Mean Corpuscular Volume 91.8 fl (80-94); Mean Platelet Volume 7.3 fl (7.4-10.4); Monocytes # 0.6 K/mm3 (0.1-1.0); Monocytes % 7.4 % (1.7-9.3); Neutrophils # 4.5 K/mm3 (1.8-7.8); Neutrophils % 55.3 % (37.0-80.0); Platelet Count 332 K/mm3 (142-424); Red Blood Count 4.66 M/mm3 (4.60-6.20); Red Cell Distribution Width 14.2 % (11.5-17.5); White Blood Count 8.2 K/mm3 (4.8-10.8)
== END ==
PROVIDERS: Visit Provider Internal Medicine Adolescent Medicine
DX: Z86.2 Personal history of diseases of the blood and blood-forming organs and certain disorders involving the immune mechanism (principal); E78.5 Hyperlipidemia, unspecified; N40.1 Benign prostatic hyperplasia with lower urinary tract symptoms
CPT/HCPCS: 36415; 80053; 80061; 84153; 85025

== ENCOUNTER → 2019-02-07 13:26 | Outpatient (CLI) | payer MEDICARE, OTHER, SELFPAY | PROVIDERS: PCP Podiatrist; Visit Provider Podiatrist | DX: S81.801D Unspecified open wound, right lower leg, subsequent encounter (principal) | CPT/HCPCS: 87070; 87077; 87186; 87205 ==

== ENCOUNTER → 2019-04-17 11:24 | Outpatient (CLI) | payer MEDICARE, OTHER, SELFPAY ==
--- NOTE | 2019-04-17 11:29 | XR_ITS ---
PROCEDURE: XR KNEE RT 3V CLINICAL INDICATION: RT KNEE PAIN COMPARISON: No exams were available for comparison FINDINGS: There are mild osteoarthritic changes of all 3 compartments. No fracture or dislocation. No lytic or blastic change IMPRESSION: . mild osteoarthritis Dictated by: Pablo Berger MD 04/17/2019 14:49 Signed by: <Electronically signed by Pablo Berger MD in OV> 04/17/2019 14:49
== END ==
PROVIDERS: PCP Internal Medicine Adolescent Medicine; Visit Provider Internal Medicine Adolescent Medicine
DX: M25.561 Pain in right knee (principal)
CPT/HCPCS: 73562

== ENCOUNTER 2019-06-27 15:49 | Inpatient (IN) ==
--- NOTE | 2019-06-27 16:02 | History & Physical Report ---
*Admission Date: 06/27/19 *Chief complaint: cellulitis *History of present illness: Mr. Mckeon is a 73-year-old male with remote history in the late of an insect bite, possibly a brown recluse bite that caused significant tissue damage and chronic lymphedema as a residual effect of this injury. He has been treated multiple times at [facility] at the lymphedema clinic with compression therapy and Unna boots for his chronic lymphedema. Additionally he has seen a vascular surgeon where they performed interventions on bilateral lower extremities to help improve blood flow. This was done over a year ago and had some arguable initial benefit, not sure about the sustained benefit at this point. He presented to the office today at the encouragement of his wound care nurse to have possible infection in his feet and legs assessed by his PCP. She has been trying to get him to come to the doctor for the past month and a half due to her concern for possible infection in his legs. On presentation to the office today he was noted to have foul-smelling drainage between his toes and from the left rivera. Significant scale of skin that sloughed with removal of his Unna boot. Additionally significant erythema and warmth just distal to the knee all the way down to his feet. Decision was made to directly admit patient to [facility] for further management. Podiatry consulted due to concern for wounds on feet and between toes on left foot. Patient otherwise has no complaints. Denies any chest pain, worsening shortness of breath, fevers, chills, GI upset, nausea, vomiting, diarrhea. He has not been on any antibiotics in the past 2 to 3 months. [facility] History I have reviewed the patient's past medical history: Yes Medical History: Reports:: BPH, Hypertension, Peripheral Artery Disease Denies:: Cancer, Diabetes Mellitus Type 1, Diabetes Mellitus Type 2, MRSA *Have you ever received a pneumonia vaccine?: No *Have you received a flu vaccine this season?: Yes Other Medical History: Reports: Arthritis, Cataracts Laterality Cases: Other Surgeries: Yes: Other Amputation: No - *Social History Smoking Status: Former smoker Tobacco Type: cigars # Packs/Day (cigarettes): 0 #Yrs smoked (if former smoker): 0 Alcohol Intake: never Alcohol Intake Frequency:: other Substance Use Type: denies use *Occupational Status:: employed Household Members: none *Travel in the last 8 weeks: None Family Hx:: Hypertension, Heart Attack Review of Systems - Review of Systems Review of systems:: pertinent systems reviewed and negative unless documented below Meds Home Medications Medication Instructions Recorded Confirmed Type carvedilol 25 mg tablet 25 mg PO BID 30 Days #60 01/17/18 06/27/19 History fluticasone propionate 50 1 spr INTRANASAL HS 60 Days #16 01/17/18 06/27/19 History mcg/actuation nasal spray,suspension Aspirin [Aspirin 81mg chewable 81 mg PO DAILY 04/04/18 06/27/19 History tab] Tamsulosin HCl [Flomax 0.4mg 0.4 mg PO HS 04/04/18 06/27/19 History capsule] raNITIdine HCl [Ranitidine HCl] 150 mg PO BID 04/04/18 06/27/19 History Allergies Allergy/AdvReac Type Severity Reaction Status Date / Time Antihistamines - Alkylamine Allergy Mild MADE SKIN Verified 05/12/19 09:47 [ANTIHISTAMINES - ALKYLAMINE] FEEL LIKE ON FIRE NSAIDS (Non-Steroidal AdvReac Severe kidney Verified 05/12/19 09:47 Anti-Inflamma failure Exam - Constitutional no acute distress, morbidly obese - *Routine HEENT Exam Head: Present: normocephalic Eye: Present: EOMI, PERRL ENT: Present: mucous membranes moist - *Routine Neck Exam Present: supple. Absent: lymphadenopathy - *Routine Respiratory Exam Present: CTA bilaterally. Absent: rhonchi, wheezes - *Routine Cardiovascular Exam Present: RRR, Normal S2. Absent: murmur - *Routine Abdominal Exam Present: soft, normoactive bowel sounds. Absent: tenderness Comments: Protuberant - *Routine Extremities Exam Present: edema. Absent: cyanosis, clubbing Comments: 3+ to knees bilaterally, erythematous and warm and entire lower leg to approximately 2 inches distal to knee bilaterally. Stasis dermatitis wounds with ulceration and significant buildup of scale. Foul drainage from between first and second digit on left foot. - *Routine Skin Exam Present: warm, lesions, wounds - *Routine Neurological Exam Present: alert, oriented X3 Assessment and Plan (1) Morbid obesity with BMI of 45.0-49.9, adult Current visit: Yes Status: Chronic Category: Medical Code(s): E66.01 - Morbid (severe) obesity due to excess calories; Z68.42 - Body mass index (BMI) 45.0-49.9, adult Complicates all aspects of his care (2) Cellulitis of right leg Current visit: Yes Status: Acute Category: Medical Code(s): L03.115 - Cellulitis of right lower limb Cellulitis of bilateral lower limbs, Significant cellulitis with large area of leg involved. Requires IV antibiotics, admit for blood cultures. High risk of bloodstream infection. Currently no evidence of sepsis. Podiatry evaluation. Vancomycin and Zosyn for initial therapy while we await cultures. (3) Lymphedema of both lower extremities Current visit: Yes Status: Acute Category: Medical Code(s): I89.0 - Lymphedema, not elsewhere classified (4) Onychogryposis of toenail Current visit: Yes Status: Acute Category: Medical Code(s): L60.2 - Onychogryphosis (5) Osteoarthritis of both ankles and feet Current visit: Yes Status: Acute Category: Medical Code(s): M19.071 - Primary osteoarthritis, right ankle and foot; M19.072 - Primary osteoarthritis, left ankle and foot (6) BPH (benign prostatic hyperplasia) Current visit: No Status: Chronic Qualifiers: Lower urinary tract symptom presence: symptoms present Lower urinary tract symptom detail: urinary frequency Qualified Code(s): N40.1 - Benign prostatic hyperplasia with lower urinary tract symptoms; R35.0 - Frequency of micturition Category: Medical Code(s): N40.0 - Benign prostatic hyperplasia without lower urinary tract symptoms Continue home tamsulosin (7) Chronic acquired lymphedema Current visit: No Status: Acute Category: Medical Code(s): I89.0 - Lymphedema, not elsewhere classified (8) Hypertension Current visit: No Status: Chronic Qualifiers: Hypertension type: essential hypertension Qualified Code(s): I10 - Essential (primary) hypertension Category: Medical Code(s): I10 - Essential (primary) hypertension Poorly controlled at this time. Continue carvedilol per home regimen. Will reevaluate during admission, may benefit from addition of more medical therapy. Caution in the setting with mild FRANCESCA (9) Left leg cellulitis Current visit: No Status: Acute Category: Medical Code(s): L03.116 - Cellulitis of left lower limb (10) Peripheral vascular disease Current visit: No Status: Acute Category: Medical Code(s): I73.9 - Peripheral vascular disease, unspecified (11) FRANCESCA (acute kidney injury) Current visit: Yes Status: Acute Category: Medical Code(s): N17.9 - Acute kidney failure, unspecified Mild. Baseline creatinine approximately 1.1. Caution with nephrotoxic's. Gentle fluid rehydration overnight to see if this improves function by morning. - Assessment and plan all Dx Assessment and Plan for all problems:: 73-year-old male with recurrent lymphedema and complicated recurrent soft tissue infections. Admitted due to worsening infection of bilateral lower extremities. Initiated on broad-spectrum antibiotics. Images obtained per podiatry recommendations. At this time does not meet criteria for sepsis however strong risk for bacteremia, deep tissue infections, osteomyelitis. Podiatry consulted with Recs as follows: 1. B/L LE cleansed with hibiclens 2. Order infection panel: CBC, ESR, CRP, Ha1c. 3. IV Vanco, Zosyn; pharm to dose 4. Reviewed x-rays, order LEFT FOOT MRI W/WOUT: to evaluate for osteomyelitis 1st metatarsal 5. Will plan for nail debridement tomorrow 6. Will follow up tomorrow Continues to require inpatient management. CODE STATUS full. Cardiac diet ordered.
[2019-06-27 17:39] LABS: Basophils # 0.1 K/mm3 (0-0.2); Basophils % 0.7 % (0.1-2.0); Eosinophils # 0.8 K/mm3 (0.0-0.4); Eosinophils % 6.9 % (0.1-12.0); Hematocrit 39.3 % (42.0-52.0); Hemoglobin 12.1 g/dL (14.1-18.0); Lymphocytes # 2.6 K/mm3 (0.7-4.5); Lymphocytes % 22.8 % (10-50); Mean Corpuscular HGB Conc 30.8 g/dL (31.8-35.4); Mean Corpuscular Volume 92.1 fl (80-94); Mean Platelet Volume 7.3 fl (7.4-10.4); Monocytes # 0.8 K/mm3 (0.1-1.0); Monocytes % 7.4 % (1.7-9.3); Neutrophils % 62.2 % (37.0-80.0); Platelet Count 433 K/mm3 (142-424); Red Blood Count 4.27 M/mm3 (4.60-6.20); Red Cell Distribution Width 14.2 % (11.5-17.5); White Blood Count 11.2 K/mm3 (4.8-10.8)
[2019-06-27 17:51] LABS: Albumin Level 3.1 gm/dL (3.4-5.0); Albumin/Globulin Ratio 0.6 (1.1-1.8); Anion Gap 13.2 mEq/L (5-15); Bilirubin,Total 0.3 mg/dL (0.2-1.0); Calcium 8.5 mg/dL (8.5-10.1); Globulin 5.1 gm/dl (1.3-3.2); Total Protein,Serum 8.2 gm/dL (6.4-8.2)
--- NOTE | 2019-06-27 18:04 | Consult Report ---
*Admission Date: 06/27/19 *Reason for consult:: B/L LE Lymphedema, cellulitis *History of present illness: Mr. Vega is a well-known patient, 73-year-old male who was directly admitted from the ER via Dr. Marino's office for evaluation of bilateral lower extremity cellulitis. Patient has recurrent lymphedema with cellulitic infections. 2.5-3 years ago patient had a vein stripping procedure to the left leg by Dr. Velazquez, right leg by Dr. Berry vascular surgeons in [place]. Patient states since then he has had residual swelling. He has compression stockings but has trouble getting them on and off. He was going to lymphedema compression therapy with Courtney Gautam but has not gone for the last week. He states since he missed his appointments with Courtney this past week his legs have gotten more swollen and more red. He admits to "weepy clear drainage" but denies purulence. He denies nausea, vomiting, fever, chills, shortness of breath and chest pain. Review of Systems - Review of Systems Review of systems:: pertinent systems reviewed and negative unless documented below - Constitutional Denies chills, Denies malaise - Eyes Denies blurry vision - ENT Denies abnormal hearing - *Cardiovascular Reports leg swelling, Reports foot swelling, Denies chest pain - *Respiratory Denies cough, Denies shortness of breath - *Gastrointestinal Denies abdominal pain, Denies nausea, Denies vomiting - *Genitourinary Denies difficulty urinating - *Musculoskeletal Reports joint swelling - Integumentary/Breasts Reports hair loss, Reports nail changes, Reports dry skin, Reports redness, Reports lesions, Reports skin ulcer - *Neurologic Denies abnormal walking - Psychiatric Denies abnormal sleep pattern - Endocrine Denies cold intolerance - Hematologic/Lymphatic Denies easy bleeding - Allergic/Immunologic Reports GI upset with certain foods [facility] History I have reviewed the patient's past medical history: Yes Medical History: Reports:: BPH, Hypertension, Peripheral Artery Disease Denies:: Cancer, Diabetes Mellitus Type 1, Diabetes Mellitus Type 2, MRSA *Have you ever received a pneumonia vaccine?: Yes *Have you received a flu vaccine this season?: No Other Medical History: Reports: Arthritis, Cataracts Laterality Cases: Left: Total Hip Replacement Other Surgeries: Yes: Other Amputation: No - *Social History Educational Level: Completed College Smoking Status: Former smoker Tobacco Type: cigars # Packs/Day (cigarettes): 1 #Yrs smoked (if former smoker): 0 Smoking End Date: 20 years ago Alcohol Intake: never Alcohol Intake Frequency:: other Substance Use Type: denies use *Occupational Status:: employed, retired Housing: apartment Household Members: none *Travel in the last 8 weeks: None Family Hx:: Hypertension, Heart Attack Meds Home Medications Medication Instructions Recorded Confirmed Type carvedilol 25 mg tablet 25 mg PO BID 30 Days #60 01/17/18 06/27/19 History fluticasone propionate 50 1 spr INTRANASAL HS 60 Days #16 01/17/18 06/27/19 History mcg/actuation nasal spray,suspension Aspirin [Aspirin 81mg chewable 81 mg PO DAILY 04/04/18 06/27/19 History tab] Tamsulosin HCl [Flomax 0.4mg 0.4 mg PO HS 04/04/18 06/27/19 History capsule] raNITIdine HCl [Ranitidine HCl] 150 mg PO BID 04/04/18 06/27/19 History Allergies Allergy/AdvReac Type Severity Reaction Status Date / Time Antihistamines - Alkylamine Allergy Mild MADE SKIN Verified 05/12/19 09:47 [ANTIHISTAMINES - ALKYLAMINE] FEEL LIKE ON FIRE NSAIDS (Non-Steroidal AdvReac Severe kidney Verified 05/12/19 09:47 Anti-Inflamma failure Exam Vital signs and Labs for Last 24 Hours: Temp Pulse Resp BP Pulse Ox 100.0 F H 78 20 186/89 H 99 06/27/19 16:21 06/27/19 16:21 06/27/19 16:21 06/27/19 16:21 06/27/19 16:21 Laboratory Results - last 24 hr 06/27/19 17:15: WBC 11.2 H, RBC 4.27 L, Hgb 12.1 L, Hct 39.3 L, MCV 92.1, MCH 28.3, MCHC 30.8 L, RDW 14.2, Plt Count 433 H, MPV 7.3 L, Neut % (Auto) 62.2, Lymph % (Auto) 22.8, [place] % (Auto) 7.4, Eos % (Auto) 6.9, Baso % (Auto) 0.7, Neut # (Auto) 7.0, Lymph # (Auto) 2.6, [place] # (Auto) 0.8, Eos # (Auto) 0.8 H, Baso # (Auto) 0.1 06/27/19 17:15: Sodium 138, Potassium 4.2, Chloride 103, Carbon Dioxide 26, Anion Gap 13.2, BUN 21 H, Creatinine 1.32 H, Estimated Creat Clear 49, Estimated GFR 53 L, Est GFR ( Amer) 65, Glucose 103, Calcium 8.5, Total Bilirubin 0.3, AST 10 L, ALT 17, Alkaline Phosphatase 100, Total Protein 8.2, Albumin 3.1 L, Globulin 5.1 H, Albumin/Globulin Ratio 0.6 L 06/27/19 17:15: C-Reactive Protein 3.5 H I & O for Last 24 hours: Intake & Output 06/25/19 06/26/19 06/27/19 06/28/19 11:59 11:59 11:59 11:59 Weight 297 lb 6 oz - Constitutional no acute distress, obese - *Routine HEENT Exam Head: Present: normocephalic Eye: Present: PERRL ENT: Present: mucous membranes moist - *Routine Neck Exam Present: supple - *Routine Respiratory Exam Present: accessory muscle use - *Routine Cardiovascular Exam Present: RRR - *Routine Abdominal Exam Present: soft. Absent: guarding - *Routine Rectal Exam Patient deferred: visual exam - *Routine Exam Patient deferred: penile exam - *Routine Extremities Exam Present: edema, pulses intact. Absent: calf tenderness, extremity cold to touch, amputation - *Routine Skin Exam Present: erythema, dry, wounds, cracked - *Routine Neurological Exam Present: alert, oriented X3, moving all extremities - Detailed Lower Extremity Exam Comments: B/L LE lymphedema. 2+ pitting. Both legs have blistery peeling skin with dried lymphatic drainage. There is no deep open wounds or lacerations noted. Palpable pedal pulses noted DP, PT. CFT 4-5 seconds. Motor function and light touch sensation intact. No calf or thigh pain noted bilaterally. Toenails 1 through 10 elongated thickened with subungual debris and dirt. Extremely dry cracked flaky skin noted to the feet. Under the knee bilaterally but left worse than right there was abrasion from compression stockings rubbing. Cellulitis noted to the legs. Area of skin breakdown noted to dorsal left 1-2nd interspace extending to metatarsals. No purulence. Results - Labs Result Diagrams: 06/27/19 17:15 06/27/19 17:15 Labs: Abnormal lab results 06/27/19 06/27/19 06/27/19 Range/Units 17:15 17:15 17:15 WBC 11.2 H (4.8-10.8) K/mm3 RBC 4.27 L (4.60-6.20) M/mm3 Hgb 12.1 L (14.1-18.0) g/dL Hct 39.3 L (42.0-52.0) % MCHC 30.8 L (31.8-35.4) g/dL Plt Count 433 H (142-424) K/mm3 MPV 7.3 L (7.4-10.4) fl Eos # (Auto) 0.8 H (0.0-0.4) K/mm3 BUN 21 H (7-18) mg/dL Creatinine 1.32 H (0.70-1.30) mg/dL Estimated GFR 53 L (>60) ml/min AST 10 L (15-37) U/L C-Reactive Protein 3.5 H (0.0-0.9) mg/dL Albumin 3.1 L (3.4-5.0) gm/dL Globulin 5.1 H (1.3-3.2) gm/dl Albumin/Globulin Ratio 0.6 L (1.1-1.8) H & H 06/27/19 Range/Units 17:15 Hgb 12.1 L (14.1-18.0) g/dL Hct 39.3 L (42.0-52.0) % All other labs normal. - Diagnostic results Ankle/Foot x-ray: report reviewed, image reviewed Assessment and Plan (1) Lymphedema of both lower extremities Current visit: Yes Status: Acute Category: Medical Code(s): I89.0 - Lymphedema, not elsewhere classified (2) Cellulitis of right leg Current visit: Yes Status: Acute Category: Medical Code(s): L03.115 - Cellulitis of right lower limb (3) History of vein stripping Current visit: Yes Status: Acute Category: Surgical Code(s): Z98.890 - Other specified postprocedural states (4) Osteoarthritis of both ankles and feet Current visit: Yes Status: Acute Category: Medical Code(s): M19.071 - Primary osteoarthritis, right ankle and foot; M19.072 - Primary osteoarthritis, left ankle and foot (5) Chronic acquired lymphedema Current visit: No Status: Acute Category: Medical Code(s): I89.0 - Lymphedema, not elsewhere classified (6) Left leg cellulitis Current visit: No Status: Acute Category: Medical Code(s): L03.116 - Cellulitis of left lower limb (7) Morbid obesity with BMI of 40.0-44.9, adult Current visit: No Status: Acute Category: Medical Code(s): E66.01 - Morbid (severe) obesity due to excess calories; Z68.41 - Body mass index (BMI) 40.0- 44.9, adult (8) Peripheral vascular disease Current visit: No Status: Acute Category: Medical Code(s): I73.9 - Peripheral vascular disease, unspecified (9) Onychogryposis of toenail Current visit: Yes Status: Acute Category: Medical Code(s): L60.2 - Onychogryphosis (10) Onychomycosis Current visit: Yes Status: Acute Category: Medical Code(s): B35.1 - Tinea unguium - Assessment and plan all Dx Assessment and Plan for all problems:: Bilateral lower extremity cellulitis, lymphedema: I discussed with the patient the importance of proper hygiene and maintaining a clean healthy wound bed to avoid the infection spreading. Both legs were scrubbed with Hibiclens and thoroughly dried. There was improvement in the qu ality of dry skin as well as texture and color. I explained to the patient that this would be a recurrent problem due to the history of vein stripping and issues with lymphatic drainage. Patient has a documented history of peripheral vascular disease. He has not seen a vascular surgeon for several years now. I explained that we will order x-ray and infection markers to rule out deep infection. If there is no osteomyelitis patient will need antibiotics for the cellulitis and lymphedema/compression therapy for the swelling. The wound was cleansed with Hibiclens. There was no specific ulceration to do bride. There was no drainage or purulence to take a wound culture. Non-palpable popliteal lymph nodes. X-rays b/l feet, ankles and tib/fib taken 06/27/2019 evaluated by myself. Repor t for all images noted, reviewed. LEFT FOOT X-RAYS: FINDINGS: No fracture or dislocation. There are mild osteoarthritic changes at the navicular cuneiform and metatarsal tarsal joint. There is mild generalized soft tissue swelling and generalized vascular calcification. Along the distal and plantar aspect of the 1st metatarsal on the lateral view there is an area of decreased bony density. This could represent an area of bony erosive change. Please correlate as the patient's area of pain swelling and wound formation. Other findings: None. IMPRESSION: Degenerative changes with possible area of bony erosion involving the distal and plantar aspect of the 1st metatarsal which could be related to an area of osteomyelitis. Please correlate to clinical findings. 1. B/L LE cleansed with hibiclens 2. Order infection panel: CBC, ESR, CRP, Ha1c. 3. IV Vanco, Zosyn; pharm to dose 4. Reviewed x-rays, order LEFT FOOT MRI W/WOUT: to evaluate for osteomyelitis 1st metatarsal 5. Will plan for nail debridement tomorrow 6. Will follow up tomorrow
[2019-06-28 06:01] LABS: Basophils % 0.3 % (0.1-2.0); Eosinophils # 0.6 K/mm3 (0.0-0.4); Eosinophils % 6.2 % (0.1-12.0); Hematocrit 37.3 % (42.0-52.0); Hemoglobin 11.5 g/dL (14.1-18.0); Lymphocytes # 1.4 K/mm3 (0.7-4.5); Lymphocytes % 15.2 % (10-50); Mean Corpuscular HGB Conc 30.8 g/dL (31.8-35.4); Mean Corpuscular Volume 95.7 fl (80-94); Mean Platelet Volume 6.8 fl (7.4-10.4); Monocytes # 0.5 K/mm3 (0.1-1.0); Monocytes % 5.6 % (1.7-9.3); Neutrophils # 6.6 K/mm3 (1.8-7.8); Neutrophils % 72.7 % (37.0-80.0); Platelet Count 383 K/mm3 (142-424); Red Cell Distribution Width 14.4 % (11.5-17.5); White Blood Count 9.1 K/mm3 (4.8-10.8)
[2019-06-28 06:09] LABS: Anion Gap 9.5 mEq/L (5-15); Calcium 7.7 mg/dL (8.5-10.1)
--- NOTE | 2019-06-28 07:10 | Progress Note ---
Internal Medicine - PN: Subj *Date: 06/28/19 *Time: 07:09 Interval history: Patient sleeping comfortably. When awakened has no complaints. States legs feel better Exam Vital signs and Labs for Last 24 Hours: Temp Pulse Resp BP Pulse Ox 97.9 F 74 18 124/76 98 06/28/19 04:00 06/28/19 04:00 06/28/19 04:00 06/28/19 04:00 06/28/19 04:00 Laboratory Results - last 24 hr 06/27/19 17:15: WBC 11.2 H, RBC 4.27 L, Hgb 12.1 L, Hct 39.3 L, MCV 92.1, MCH 28.3, MCHC 30.8 L, RDW 14.2, Plt Count 433 H, MPV 7.3 L, Neut % (Auto) 62.2, Lymph % (Auto) 22.8, [place] % (Auto) 7.4, Eos % (Auto) 6.9, Baso % (Auto) 0.7, Neut # (Auto) 7.0, Lymph # (Auto) 2.6, [place] # (Auto) 0.8, Eos # (Auto) 0.8 H, Baso # (Auto) 0.1 06/27/19 17:15: Sodium 138, Potassium 4.2, Chloride 103, Carbon Dioxide 26, Anion Gap 13.2, BUN 21 H, Creatinine 1.32 H, Estimated Creat Clear 49, Estimated GFR 53 L, Est GFR ( Amer) 65, Glucose 103, Calcium 8.5, Total Bilirubin 0.3, AST 10 L, ALT 17, Alkaline Phosphatase 100, Total Protein 8.2, Albumin 3.1 L, Globulin 5.1 H, Albumin/Globulin Ratio 0.6 L 06/27/19 17:15: ESR 100 H 06/27/19 17:15: C-Reactive Protein 3.5 H 06/27/19 20:54: POC Glucose 122 H 06/28/19 05:49: POC Glucose 110 06/28/19 05:50: WBC 9.1, RBC 3.90 L, Hgb 11.5 L, Hct 37.3 L, MCV 95.7 H, MCH 29.5, MCHC 30.8 L, RDW 14.4, Plt Count 383, MPV 6.8 L, Neut % (Auto) 72.7, Lymph % (Auto) 15.2, [place] % (Auto) 5.6, Eos % (Auto) 6.2, Baso % (Auto) 0.3, Neut # (Auto) 6.6, Lymph # (Auto) 1.4, [place] # (Auto) 0.5, Eos # (Auto) 0.6 H, Baso # (Auto) 0.0 06/28/19 05:50: Sodium 137, Potassium 4.5, Chloride 105, Carbon Dioxide 27, Anion Gap 9.5, BUN 19 H, Creatinine 1.32 H, Estimated Creat Clear 49, Estimated GFR 53 L, Est GFR ( Amer) 65, Glucose 114 H, Calcium 7.7 L I & O for Last 24 hours: Intake & Output 06/25/19 06/26/19 06/27/19 06/28/19 11:59 11:59 11:59 11:59 Intake Total 1629 / 1629 Output Total 1200 / 1200 Balance 429 / 429 Weight 298 lb 9 oz Narrative: Patient is awake. Alert. ENT exam clear, oropharynx clear, heart rate regular. Lungs are clear. Legs have non-weeping crusted scabs that are on an erythematous base up to the shins. Left leg slightly worse. Apparently much improved than yesterday. Assessment and Plan (1) Morbid obesity with BMI of 45.0-49.9, adult Current visit: Yes Status: Chronic Category: Medical Code(s): E66.01 - Morbid (severe) obesity due to excess calories; Z68.42 - Body mass index (BMI) 45.0-49.9, adult (2) Cellulitis of right leg Current visit: Yes Status: Acute Category: Medical Code(s): L03.115 - Cellulitis of right lower limb (3) Lymphedema of both lower extremities Current visit: Yes Status: Acute Category: Medical Code(s): I89.0 - Lymphedema, not elsewhere classified (4) Onychogryposis of toenail Current visit: Yes Status: Acute Category: Medical Code(s): L60.2 - Onychogryphosis (5) Osteoarthritis of both ankles and feet Current visit: Yes Status: Acute Category: Medical Code(s): M19.071 - Primary osteoarthritis, right ankle and foot; M19.072 - Primary osteoarthritis, left ankle and foot (6) BPH (benign prostatic hyperplasia) Current visit: No Status: Chronic Qualifiers: Lower urinary tract symptom presence: symptoms present Lower urinary tract symptom detail: urinary frequency Qualified Code(s): N40.1 - Benign prostatic hyperplasia with lower urinary tract symptoms; R35.0 - Frequency of micturition Category: Medical Code(s): N40.0 - Benign prostatic hyperplasia without lower urinary tract symptoms (7) Chronic acquired lymphedema Current visit: No Status: Acute Category: Medical Code(s): I89.0 - Lymphedema, not elsewhere classified (8) Hypertension Current visit: No Status: Chronic Qualifiers: Hypertension type: essential hypertension Qualified Code(s): I10 - Essential (primary) hypertension Category: Medical Code(s): I10 - Essential (primary) hypertension (9) Left leg cellulitis Current visit: No Status: Acute Category: Medical Code(s): L03.116 - Cellulitis of left lower limb (10) Peripheral vascular disease Current visit: No Status: Acute Category: Medical Code(s): I73.9 - Peripheral vascular disease, unspecified (11) FRANCESCA (acute kidney injury) Current visit: Yes Status: Acute Category: Medical Code(s): N17.9 - Acute kidney failure, unspecified - Assessment and plan all Dx Assessment and Plan for all problems:: Kidney function stabilized. Agree with antibiotic choice. Continue to watch kidney function closely. IV fluids through the day. Continue podiatry consult. Agree with MRI plan.
--- NOTE | 2019-06-28 07:41 | Pharmacy Consult Notes ---
[facility] Pharmacy VTE Monitoring - Patient Demographics Admission date: 06/27/19 Report Date: 06/28/19 Time: 07:41 Allergies/Adverse Reactions: Patient Allergies Antihistamines - Alkylamine [ANTIHISTAMINES - ALKYLAMINE] Allergy (Mild, Verified 05/12/19 09:47) MADE SKIN FEEL LIKE ON FIRE NSAIDS (Non-Steroidal Anti-Inflamma Adverse Reaction (Severe, Verified 05/12/19 09:47) kidney failure Height: 1.73 m Weight: 135.426 kg Patient Problems: Current Active Problems Lymphedema of both lower extremities (Acute) Cellulitis of right leg (Acute) History of vein stripping (Acute) Osteoarthritis of both ankles and feet (Acute) Onychogryposis of toenail (Acute) Onychomycosis (Acute) Morbid obesity with BMI of 45.0-49.9, adult (Chronic) FRANCESCA (acute kidney injury) (Acute) - VTE Risk Labs: VTE Related Lab Results Hgb 11.5 g/dL (14.1-18.0) L 06/28/19 05:50 Hct 37.3 % (42.0-52.0) L 06/28/19 05:50 Plt Count 383 K/mm3 (142-424) 06/28/19 05:50 BUN 19 mg/dL (7-18) H 06/28/19 05:50 Creatinine 1.32 mg/dL (0.70-1.30) H 06/28/19 05:50 Estimated Creat Clear 49 mL/min (50-200) 06/28/19 05:50 Was VTE Risk Assessment Performed: Yes VTE Score: 3 VTE Risk Level: Low Risk - Prophylaxis VTE Prophylaxis Ordered?: Yes Types of VTE Prophylaxis: TEDS Knee High Location of Applied Device: Right Leg - VTE Diagnosis Confirmed Treatment or plan recommended: Continue Current Treatment
--- NOTE | 2019-06-28 10:18 | Pharmacy Consult Notes ---
- Pharmacy Consult Date: 06/28/19 Time: 10:16 Referring provider: DR. MCDUFFIE Reason for Consult:: VANCOMYCIN DOSING Allergies and ADEs:: Allergies Allergy/AdvReac Type Severity Reaction Status Date / Time Antihistamines - Alkylamine Allergy Mild MADE SKIN Verified 05/12/19 09:47 [ANTIHISTAMINES - ALKYLAMINE] FEEL LIKE ON FIRE NSAIDS (Non-Steroidal AdvReac Severe kidney Verified 05/12/19 09:47 Anti-Inflamma failure Home Medications:: Home Medications Medication Instructions Recorded Confirmed Type carvedilol 25 mg tablet 25 mg PO BID 30 Days #60 01/17/18 06/27/19 History fluticasone propionate 50 1 spr INTRANASAL HS 60 Days #16 01/17/18 06/27/19 History mcg/actuation nasal spray,suspension Aspirin [Aspirin 81mg chewable 81 mg PO DAILY 04/04/18 06/27/19 History tab] Tamsulosin HCl [Flomax 0.4mg 0.8 mg PO HS 04/04/18 06/28/19 History capsule] raNITIdine HCl [Ranitidine HCl] 150 mg PO BID 04/04/18 06/27/19 History Height: 1.73 m Weight: 135.426 kg Laboratory Results:: Laboratory Results - last 24 hr 06/27/19 17:15: WBC 11.2 H, RBC 4.27 L, Hgb 12.1 L, Hct 39.3 L, MCV 92.1, MCH 28.3, MCHC 30.8 L, RDW 14.2, Plt Count 433 H, MPV 7.3 L, Neut % (Auto) 62.2, Lymph % (Auto) 22.8, [place] % (Auto) 7.4, Eos % (Auto) 6.9, Baso % (Auto) 0.7, Neut # (Auto) 7.0, Lymph # (Auto) 2.6, [place] # (Auto) 0.8, Eos # (Auto) 0.8 H, Baso # (Auto) 0.1 06/27/19 17:15: Sodium 138, Potassium 4.2, Chloride 103, Carbon Dioxide 26, Anion Gap 13.2, BUN 21 H, Creatinine 1.32 H, Estimated Creat Clear 49, Estimated GFR 53 L, Est GFR ( Amer) 65, Glucose 103, Calcium 8.5, Total Bilirubin 0.3, AST 10 L, ALT 17, Alkaline Phosphatase 100, Total Protein 8.2, Albumin 3.1 L, Globulin 5.1 H, Albumin/Globulin Ratio 0.6 L 06/27/19 17:15: ESR 100 H 06/27/19 17:15: C-Reactive Protein 3.5 H 06/27/19 20:54: POC Glucose 122 H 06/28/19 05:49: POC Glucose 110 06/28/19 05:50: WBC 9.1, RBC 3.90 L, Hgb 11.5 L, Hct 37.3 L, MCV 95.7 H, MCH 29.5, MCHC 30.8 L, RDW 14.4, Plt Count 383, MPV 6.8 L, Neut % (Auto) 72.7, Lymph % (Auto) 15.2, [place] % (Auto) 5.6, Eos % (Auto) 6.2, Baso % (Auto) 0.3, Neut # (Auto) 6.6, Lymph # (Auto) 1.4, [place] # (Auto) 0.5, Eos # (Auto) 0.6 H, Baso # (Auto) 0.0 06/28/19 05:50: Sodium 137, Potassium 4.5, Chloride 105, Carbon Dioxide 27, Anion Gap 9.5, BUN 19 H, Creatinine 1.32 H, Estimated Creat Clear 49, Estimated GFR 53 L, Est GFR ( Amer) 65, Glucose 114 H, Calcium 7.7 L Medical History: Reports:: BPH, Hypertension, Peripheral Artery Disease Denies:: Cancer, Diabetes Mellitus Type 1, Diabetes Mellitus Type 2, MRSA Assessment and Plan (1) Morbid obesity with BMI of 45.0-49.9, adult Current visit: Yes Status: Chronic Category: Medical Code(s): E66.01 - Morbid (severe) obesity due to excess calories; Z68.42 - Body mass index (BMI) 45.0-49.9, adult (2) Cellulitis of right leg Current visit: Yes Status: Acute Category: Medical Code(s): L03.115 - Cellulitis of right lower limb (3) Lymphedema of both lower extremities Current visit: Yes Status: Acute Category: Medical Code(s): I89.0 - Lymphedema, not elsewhere classified (4) Onychogryposis of toenail Current visit: Yes Status: Acute Category: Medical Code(s): L60.2 - Onychogryphosis (5) Osteoarthritis of both ankles and feet Current visit: Yes Status: Acute Category: Medical Code(s): M19.071 - Primary osteoarthritis, right ankle and foot; M19.072 - Primary osteoarthritis, left ankle and foot (6) BPH (benign prostatic hyperplasia) Current visit: No Status: Chronic Qualifiers: Lower urinary tract symptom presence: symptoms present Lower urinary tract symptom detail: urinary frequency Qualified Code(s): N40.1 - Benign prostatic hyperplasia with lower urinary tract symptoms; R35.0 - Frequency of micturition Category: Medical Code(s): N40.0 - Benign prostatic hyperplasia without lower urinary tract symptoms (7) Chronic acquired lymphedema Current visit: No Status: Acute Category: Medical Code(s): I89.0 - Lymphedema, not elsewhere classified (8) Hypertension Current visit: No Status: Chronic Qualifiers: Hypertension type: essential hypertension Qualified Code(s): I10 - Essential (primary) hypertension Category: Medical Code(s): I10 - Essential (primary) hypertension (9) Left leg cellulitis Current visit: No Status: Acute Category: Medical Code(s): L03.116 - C ellulitis of left lower limb (10) Peripheral vascular disease Current visit: No Status: Acute Category: Medical Code(s): I73.9 - Peripheral vascular disease, unspecified (11) FRANCESCA (acute kidney injury) Current visit: Yes Status: Acute Category: Medical Code(s): N17.9 - Acute kidney failure, unspecified - Assessment and plan all Dx Assessment and Plan for all problems:: BASED ON PATIENT FACTORS, RECOMMEND VANCOMYCIN 2500 MG IV ONCE, FOLLOWED BY VANCOMYCIN 2 GM IV Q18H. PHARMACY WILL ORDER VANCOMYCIN TROUGH LEVEL TOMORROW MORNING. WILL FOLLOW DAILY AND ADJUST APPROPRIATE.
--- NOTE | 2019-06-28 11:13 | Progress Note ---
Subjective Date: 06/28/19 <Isabelle Lema - 06/28/19 11:14> Time: 08:30 <Isabelle Lema - 06/28/19 11:14> Interval history: Mr. Vega is a well-known patient, 73-year-old male who was directly admitted from the ER via Dr. Marino's office for evaluation of bilateral lower extremity cellulitis. Patient has recurrent lymphedema with cellulitic infections. The patient is resting in bed this morning with no complaints of acute pain and no drainage from his B/L lower legs, they are open to air resting on the bed. Patient has been receiving IV antibiotics (Vancomycin 2.5 gm & Zosyn 3.375gm) and tolerating therapy well. <Isabelle Lema - 06/28/19 11:21> PN: Obj Ex Vital signs: Temp Pulse Resp BP Pulse Ox 97.6 F 71 19 158/84 H 97 06/30/19 07:51 06/30/19 07:51 06/30/19 07:51 06/30/19 07:51 06/30/19 08:00 <Keila Brito - 06/30/19 11:22> Temp Pulse Resp BP Pulse Ox 98.4 F 78 20 144/68 H 98 06/28/19 08:00 06/28/19 08:00 06/28/19 08:00 06/28/19 08:00 06/28/19 08:00 <Isabelle Lema - 06/28/19 11:14> - Constitutional no acute distress, obese, cooperative <Isabelle Lema - 06/28/19 11:21> - Routine HEENT Exam Head: Present: normocephalic <Isabelle Lema - 06/28/19 11:21> - Routine Neck Exam Present: full ROM. Absent: JVD <Isabelle Lema - 06/28/19 12:58> - Routine Respiratory Exam Present: wheezes. Absent: respiratory distress <Isabelle Lema - 06/28/19 12:58> - Routine Abdominal Exam Absent: distended <Isabelle Lema - 06/28/19 12:58> - Routine Extremities Exam Present: edema, pulses intact, normal capillary refill. Absent: calf tenderness <Isabelle Lema - 06/28/19 12:58> - Detailed Lower Extremity Exam Lower leg: Bilateral swelling, Bilateral erythema, Bilateral warmth <Isabelle Lema - 06/28/19 12:58> Foot/Toes: Bilateral erythema, Bilateral nail abnormalities, Bilateral swelling, Bilateral full ROM <Isabelle Lema - 06/28/19 12:58> Leg image: 1 - Right lower leg Lymphedema, cellulitis, no visible drainage noted, no open sores. 2 - Left lower leg Lymphedema, cellultis, No visible drainage or open sores noted. <Isabelle Lema - 06/28/19 12:58> Top foot image: 1 - Left 2nd toe has scabbed area to top of foot as well as erythema and swelling, and report some pain. <Isabelle Lema - 06/28/19 12:58> - Routine Back/Spine/Pelvis Exam Back/Spine: Present: full ROM <Isabelle Lema - 06/28/19 12:58> - Routine Skin Exam Present: erythema, dry, warm, wounds <Isabelle Lema - 06/28/19 13:09> - Routine Neurological Exam Present: alert, oriented X3, moving all extremities, normal speech. Absent: tremors <Isabelle Lema - 06/28/19 13:09> - Routine Psychiatric Exam Present: normal affect, cooperative <Isabelle Lema - 06/28/19 13:09> Progress Note: A&P (1) Morbid obesity with BMI of 45.0-49.9, adult Status: Chronic (2) Cellulitis of right leg Status: Acute (3) Lymphedema of both lower extremities Status: Acute (4) Onychogryposis of toenail Status: Acute (5) Osteoarthritis of both ankles and feet Status: Acute (6) BPH (benign prostatic hyperplasia) Status: Chronic (7) Chronic acquired lymphedema Status: Acute (8) Hypertension Status: Chronic (9) Left leg cellulitis Status: Acute (10) Peripheral vascular disease Status: Acute (11) FRANCESCA (acute kidney injury) Status: Acute <Keila Brito - 06/30/19 11:22> (1) Morbid obesity with BMI of 45.0-49.9, adult Start date: 06/28/19 Status: Chronic (2) Cellulitis of right leg Start date: 06/28/19 Status: Acute (3) Lymphedema of both lower extremities Start date: 06/28/19 Status: Acute (4) Onychogryposis of toenail Start date: 06/28/19 Status: Acute (5) Osteoarthritis of both ankles and feet Start date: 06/28/19 Status: Acute (6) BPH (benign prostatic hyperplasia) Status: Chronic (7) Chronic acquired lymphedema Start date: 06/28/19 Status: Acute (8) Hypertension Status: Chronic (9) Left leg cellulitis Start date: 06/28/19 Status: Acute (10) Peripheral vascular disease Start date: 06/28/19 Status: Acute (11) FRANCESCA (acute kidney injury) Status: Acute <Isabelle Lema - 06/30/19 09:46> Assessment and Plan for All Diagnoses:: Physician Attestation I was present during all of the critical components of the office visit. The patient was seen, evaluated and examined by me. I have read the office note that was documented by the staff and/or [employer] and agree with the documentation. Agree with the above plan. Will follow up in 1-2 days for re-application of unna boots and skin evaluation <Keila Brito - 06/30/19 11:22> PROCEDURE: MR FOOT LT WO/W CON CLINICAL INDICATION: to evaluate for osteomyelitis 1st metatarsal Foot pain, abnormal radiograph suggesting a possible lytic lesion along the plantar and distal aspect of the 1st metatarsal. COMPARISON: XR FOOT LT MIN 3V from 06/27/2019 FINDINGS: There is mild diffuse subcutaneous edema involving the mid and forefoot region. Ankle edema also noted. There is edema also along the plantar surface of the foot and along the medial aspect of the 1st metatarsophalangeal joint. There was question of a lytic lesion along the plantar surface and distal aspect of the 1st metatarsal. No abnormal enhancement or abnormal bone marrow signal intensity is evident at this region. There are osteoarthritic changes of the 1st metatarsophalangeal joint. No fracture or dislocation apparent. There is mild enhancement of the subcutaneous tissue of the forefoot suggesting cellulitis. There are osteoarthritic changes of the navicular cuneiform joint. There is some increased T2 signal within the peroneal longus tendon which is nonspecific but could be seen with tendinopathy/tendinosis versus partial tear. IMPRESSION: 1. No evidence of osteomyelitis. 2. Osteoarthritic change of the foot. 3. Soft tissue swelling and subcutaneous edema with some enhancement of the subcutaneous tissues suggesting cellulitis in the forefoot region at the metatarsophalangeal junction and at the phalanges 4. Tendinopathy/tendinosis versus partial tear of the peroneal longus tendon Plan: 1. Patient had MRI done today and ruled out Osteomyelitis in his left foot 2. Nails trimmed today 3. Applied Unna Boots B/L legs stay in place for at least 3 days. 4. Continue IV antibiotics per PCP. 5. Consult with Wound Clinic for (Lymphedema) and Unna Boot therapy. <Isabelle Lema - 06/28/19 14:17>
[2019-06-29 07:04] LABS: Anion Gap 10.2 mEq/L (5-15)
[2019-06-29 07:52] LABS: Basophils % 0.5 % (0.1-2.0); Eosinophils # 0.7 K/mm3 (0.0-0.4); Hematocrit 37.3 % (42.0-52.0); Hemoglobin 11.5 g/dL (14.1-18.0); Lymphocytes # 1.5 K/mm3 (0.7-4.5); Mean Corpuscular HGB Conc 30.7 g/dL (31.8-35.4); Mean Corpuscular Volume 94.6 fl (80-94); Mean Platelet Volume 7.5 fl (7.4-10.4); Monocytes # 0.6 K/mm3 (0.1-1.0); Monocytes % 7.7 % (1.7-9.3); Neutrophils # 4.8 K/mm3 (1.8-7.8); Neutrophils % 62.8 % (37.0-80.0); Platelet Count 420 K/mm3 (142-424); Red Blood Count 3.94 M/mm3 (4.60-6.20); Red Cell Distribution Width 14.5 % (11.5-17.5); White Blood Count 7.7 K/mm3 (4.8-10.8)
--- NOTE | 2019-06-29 09:04 | Progress Note ---
Internal Medicine - PN: Subj *Date: 06/29/19 *Time: 08:10 Interval history: Mr. Mckeon did well overnight. Remains afebrile and hemodynamically stable. Denies shortness of breath, chest pain, nausea, vomiting. States his legs are feeling better. In Unna boots this morning. Overall seems to be improving. Still on IV antibiotics. Exam Vital signs and Labs for Last 24 Hours: Temp Pulse Resp BP Pulse Ox 97.6 F 69 17 156/77 H 98 06/29/19 04:00 06/29/19 04:00 06/29/19 04:00 06/29/19 04:00 06/29/19 04:00 Laboratory Results - last 24 hr 06/28/19 12:08: POC Glucose 93 06/28/19 17:24: POC Glucose 99 06/28/19 21:13: POC Glucose 87 06/29/19 05:32: POC Glucose 107 06/29/19 06:34: Vancomycin Trough 16.6 06/29/19 06:34: WBC 7.7, RBC 3.94 L, Hgb 11.5 L, Hct 37.3 L, MCV 94.6 H, MCH 29.1, MCHC 30.7 L, RDW 14.5, Plt Count 420, MPV 7.5, Neut % (Auto) 62.8, Lymph % (Auto) 20.0, [place] % (Auto) 7.7, Eos % (Auto) 9.0, Baso % (Auto) 0.5, Neut # (Auto) 4.8, Lymph # (Auto) 1.5, [place] # (Auto) 0.6, Eos # (Auto) 0.7 H, Baso # (Auto) 0.0 06/29/19 06:34: Sodium 136, Potassium 4.2, Chloride 104, Carbon Dioxide 26, Anion Gap 10.2, BUN 16, Creatinine 1.29, Estimated Creat Clear 50, Estimated GFR 55 L, Est GFR ( Amer) 66, Glucose 101, Calcium 8.0 L I & O for Last 24 hours: Intake & Output 06/26/19 06/27/19 06/28/19 06/29/19 23:59 23:59 23:59 23:59 Intake Total 300 / 300 3221 / 3221 1067 / 1067 Output Total 400 / 800 1775 / 1975 550 / 550 Balance -100 / -500 1446 / 1246 517 / 517 Weight 134.887 kg 135.426 kg 133.951 kg Narrative: Patient is awake. Alert ENT exam clear, oropharynx clear heart rate regular, no murmur Lungs are clear with no wheeze or rhonchi. Legs have Unna boots on up to the knee bilaterally. Improvement in erythema of feet. No drainage between toes anymore. Much improved since admission Assessment and Plan (1) Morbid obesity with BMI of 45.0-49.9, adult Start date: 06/28/19 Current visit: Yes Status: Chronic Category: Medical Code(s): E66.01 - Morbid (severe) obesity due to excess calories; Z68.42 - Body mass index (BMI) 45.0-49.9, adult (2) Cellulitis of right leg Start date: 06/28/19 Current visit: Yes Status: Acute Category: Medical Code(s): L03.115 - Cellulitis of right lower limb (3) Lymphedema of both lower extremities Start date: 06/28/19 Current visit: Yes Status: Acute Category: Medical Code(s): I89.0 - Lymphedema, not elsewhere classified (4) Onychogryposis of toenail Start date: 06/28/19 Current visit: Yes Status: Acute Category: Medical Code(s): L60.2 - Onychogryphosis (5) Osteoarthritis of both ankles and feet Start date: 06/28/19 Current visit: Yes Status: Acute Category: Medical Code(s): M19.071 - Primary osteoarthritis, right ankle and foot; M19.072 - Primary osteoarthritis, left ankle and foot (6) BPH (benign prostatic hyperplasia) Current visit: No Status: Chronic Qualifiers: Lower urinary tract symptom presence: symptoms present Lower urinary tract symptom detail: urinary frequency Qualified Code(s): N40.1 - Benign prostatic hyperplasia with lower urinary tract symptoms; R35.0 - Frequency of micturition Category: Medical Code(s): N40.0 - Benign prostatic hyperplasia without lower urinary tract symptoms (7) Chronic acquired lymphedema Start date: 06/28/19 Current visit: No Status: Acute Category: Medical Code(s): I89.0 - Lymphedema, not elsewhere classified (8) Hypertension Current visit: No Status: Chronic Qualifiers: Hypertension type: essential hypertension Qualified Code(s): I10 - Essential (primary) hypertension Category: Medical Code(s): I10 - Essential (primary) hypertension (9) Left leg cellulitis Start date: 06/28/19 Current visit: No Status: Acute Category: Medical Code(s): L03.116 - Cell ulitis of left lower limb (10) Peripheral vascular disease Start date: 06/28/19 Current visit: No Status: Acute Category: Medical Code(s): I73.9 - Peripheral vascular disease, unspecified (11) FRANCESCA (acute kidney injury) Current visit: Yes Status: Acute Category: Medical Code(s): N17.9 - Acute kidney failure, unspecified - Assessment and plan all Dx Assessment and Plan for all problems:: Continue IV antibiotics for another 24 hours. If continues to remain hemodynamically stable, will transition oral therapy tomorrow to complete 2 weeks of antibiotic therapy for cellulitis of bilateral lower legs. Plan to follow with podiatry and wound care in the outpatient setting. Continues to require inpatient management.
--- NOTE | 2019-06-29 09:54 | Pharmacy Consult Notes ---
- Pharmacy Consult Date: 06/29/19 Time: 09:52 Referring provider: DR. MCDUFFIE Reason for Consult:: VANCOMYCIN TROUGH LEVEL Allergies and ADEs:: Allergies Allergy/AdvReac Type Severity Reaction Status Date / Time Antihistamines - Alkylamine Allergy Mild MADE SKIN Verified 05/12/19 09:47 [ANTIHISTAMINES - ALKYLAMINE] FEEL LIKE ON FIRE NSAIDS (Non-Steroidal AdvReac Severe kidney Verified 05/12/19 09:47 Anti-Inflamma failure Home Medications:: Home Medications Medication Instructions Recorded Confirmed Type carvedilol 25 mg tablet 25 mg PO BID 30 Days #60 01/17/18 06/27/19 History fluticasone propionate 50 1 spr INTRANASAL HS 60 Days #16 01/17/18 06/27/19 History mcg/actuation nasal spray,suspension Aspirin [Aspirin 81mg chewable 81 mg PO DAILY 04/04/18 06/27/19 History tab] Tamsulosin HCl [Flomax 0.4mg 0.8 mg PO HS 04/04/18 06/28/19 History capsule] raNITIdine HCl [Ranitidine HCl] 150 mg PO BID 04/04/18 06/27/19 History Height: 1.73 m Weight: 133.951 kg Laboratory Results:: Laboratory Results - last 24 hr 06/28/19 12:08: POC Glucose 93 06/28/19 17:24: POC Glucose 99 06/28/19 21:13: POC Glucose 87 06/29/19 05:32: POC Glucose 107 06/29/19 06:34: Vancomycin Trough 16.6 06/29/19 06:34: WBC 7.7, RBC 3.94 L, Hgb 11.5 L, Hct 37.3 L, MCV 94.6 H, MCH 29.1, MCHC 30.7 L, RDW 14.5, Plt Count 420, MPV 7.5, Neut % (Auto) 62.8, Lymph % (Auto) 20.0, [place] % (Auto) 7.7, Eos % (Auto) 9.0, Baso % (Auto) 0.5, Neut # (Auto) 4.8, Lymph # (Auto) 1.5, [place] # (Auto) 0.6, Eos # (Auto) 0.7 H, Baso # (Auto) 0.0 10/31/19 06:34: Sodium 136, Potassium 4.2, Chloride 104, Carbon Dioxide 26, Anion Gap 10.2, BUN 16, Creatinine 1.29, Estimated Creat Clear 50, Estimated GFR 55 L, Est GFR ( Amer) 66, Glucose 101, Calcium 8.0 L Medical History: Reports:: BPH, Hypertension, Peripheral Artery Disease Denies:: Cancer, Diabetes Mellitus Type 1, Diabetes Mellitus Type 2, MRSA Assessment and Plan (1) Morbid obesity with BMI of 45.0-49.9, adult Start date: 06/28/19 Current visit: Yes Status: Chronic Category: Medical Code(s): E66.01 - Morbid (severe) obesity due to excess calories; Z68.42 - Body mass index (BMI) 45.0-49.9, adult (2) Cellulitis of right leg Start date: 06/28/19 Current visit: Yes Status: Acute Category: Medical Code(s): L03.115 - Cellulitis of right lower limb (3) Lymphedema of both lower extremities Start date: 06/28/19 Current visit: Yes Status: Acute Category: Medical Code(s): I89.0 - Lymphedema, not elsewhere classified (4) Onychogryposis of toenail Start date: 06/28/19 Current visit: Yes Status: Acute Category: Medical Code(s): L60.2 - Onychogryphosis (5) Osteoarthritis of both ankles and feet Start date: 06/28/19 Current visit: Yes Status: Acute Category: Medical Code(s): M19.071 - Primary osteoarthritis, right ankle and foot; M19.072 - Primary osteoarthritis, left ankle and foot (6) BPH (benign prostatic hyperplasia) Current visit: No Status: Chronic Qualifiers: Lower urinary tract symptom presence: symptoms present Lower urinary tract symptom detail: urinary frequency Qualified Code(s): N40.1 - Benign prostatic hyperplasia with lower urinary tract symptoms; R35.0 - Frequency of micturition Category: Medical Code(s): N40.0 - Benign prostatic hyperplasia without lower urinary tract symptoms (7) Chronic acquired lymphedema Start date: 06/28/19 Current visit: No Status: Acute Category: Medical Code(s): I89.0 - Lymphedema, not elsewhere classified (8) Hypertension Current visit: No Status: Chronic Qualifiers: Hypertension type: essential hypertension Qualified Code(s): I10 - Essential (primary) hypertension Category: Medical Code(s): I10 - Essential (primary) hypertension (9) Left leg cellulitis Start date: 06/28/19 Current visit: No Status: Acute Category: Medical Code(s): L03.116 - Cellulitis of left lower limb (10) Peripheral vascular disease Start date: 06/28/19 Current visit: No Status: Acute Category: Medical Code(s): I73.9 - Peripheral vascular disease, unspecified (11) FRANCESCA (acute kidney injury) Current visit: Yes Status: Acute Category: Medical Code(s): N17.9 - Acute kidney failure, unspecified - Assessment and plan all Dx Assessment and Plan for all problems:: BASED ON VANCOMYCIN TROUGH LEVEL AND PATIENT FACTORS, RECOMMEND CONTINUING VANCOMYCIN 2 GM IV Q18H AT THIS TIME. PHARMACY WILL CONTINUE TO MONITOR DAILY AND ADJUST APPROPRIATE.
[2019-06-30 07:06] LABS: Basophils # 0.1 K/mm3 (0-0.2); Basophils % 0.7 % (0.1-2.0); Eosinophils # 0.8 K/mm3 (0.0-0.4); Eosinophils % 8.1 % (0.1-12.0); Hematocrit 38.8 % (42.0-52.0); Hemoglobin 12.1 g/dL (14.1-18.0); Lymphocytes # 1.7 K/mm3 (0.7-4.5); Lymphocytes % 17.3 % (10-50); Mean Corpuscular HGB Conc 31.3 g/dL (31.8-35.4); Mean Platelet Volume 7.2 fl (7.4-10.4); Monocytes # 0.8 K/mm3 (0.1-1.0); Monocytes % 8.2 % (1.7-9.3); Neutrophils # 6.5 K/mm3 (1.8-7.8); Neutrophils % 65.6 % (37.0-80.0); Platelet Count 384 K/mm3 (142-424); Red Blood Count 4.13 M/mm3 (4.60-6.20); Red Cell Distribution Width 14.3 % (11.5-17.5); White Blood Count 9.8 K/mm3 (4.8-10.8)
[2019-06-30 07:36] LABS: Anion Gap 11.3 mEq/L (5-15); Calcium 8.3 mg/dL (8.5-10.1)
--- NOTE | 2019-06-30 08:21 | Discharge Summary ---
General - General Admission date:: 06/27/19 Discharge date: 06/30/19 HPI HPI: Mr. Mckeon is a 73-year-old male with remote history in the late of an insect bite, possibly a brown recluse bite that caused significant tissue damage and chronic lymphedema as a residual effect of this injury. He has been treated multiple times at [facility] at the [facility]ymphedema clinic with compression therapy and Unna boots for his chronic lymphedema. Additionally he has seen a vascular surgeon where they performed interventions on bilateral lower extremities to help improve blood flow. This was done over a year ago and had some arguable initial benefit, not sure about the sustained benefit at this point. He presented to the office today at the encouragement of his wound care nurse to have possible infection in his feet and legs assessed by his PCP. She has been trying to get him to come to the doctor for the past month and a half due to her concern for possible infection in his legs. On presentation to the office today he was noted to have foul-smelling drainage between his toes and from the left rivera. Significant scale of skin that sloughed with removal of his Unna boot. Additionally significant erythema and warmth just distal to the knee all the way down to his feet. Decision was made to directly admit patient to [facility] for further management. Podiatry consulted due to concern for wounds on feet and between toes on left foot. Patient otherwise has no complaints. Denies any chest pain, worsening shortness of breath, fevers, chills, GI upset, nausea, vomiting, diarrhea. He has not been on any antibiotics in the past 2 to 3 months. Hospital Course Hospital Course: Mr. Vega was admitted for bilateral cellulitis of lower extremities with his chronic lymphedema. Was started on broad-spectrum IV antibiotics and had imaging performed due to potential concern for osteomyelitis. Was found to not have osteomyelitis. Legs were washed and debrided daily for the first 2 days of admission with significant improvement and erythema and discharge. Wound management saw the patient and dressed his legs and Unna boots. He showed significant effervescence of his symptoms and tolerance of IV therapy for his cellulitis. Tolerating p.o. intake. Remained afebrile and hemodynamically stable during admission. Kidney function electrolytes at baseline. Denies fevers, nausea, vomiting, diarrhea, chest pain, shortness of breath. We will plan to transition oral antibiotics today and discharge home to complete 14 days total of antibiotic therapy. Additionally will follow-up in about a week primary care clinic and continue to see lymphedema clinic in the outpatient setting for Unna boot management. Objective Vital signs: Temp Pulse Resp BP Pulse Ox 97.6 F 71 19 158/84 H 97 06/30/19 07:51 06/30/19 07:51 06/30/19 07:51 06/30/19 07:51 06/30/19 07:51 Narrative: Patient is awake. Alert ENT exam clear, oropharynx clear heart rate regular, no murmur Lungs are clear with no wheeze or rhonchi. Legs have Unna boots on up to the knee bilaterally. Improvement in erythema of feet. No drainage between toes anymore. Much improved since admission Results Labs on day of discharge: Labs from last 24 hours 06/30/19 06/30/19 06/30/19 06:30 06:30 05:33 WBC 9.8 D RBC 4.13 L Hgb 12.1 L Hct 38.8 L MCV 94.0 MCH 29.4 MCHC 31.3 L RDW 14.3 Plt Count 384 MPV 7.2 L Neut % (Auto) 65.6 Lymph % (Auto) 17.3 [place] % (Auto) 8.2 Eos % (Auto) 8.1 Baso % (Auto) 0.7 Neut # (Auto) 6.5 Lymph # (Auto) 1.7 [place] # (Auto) 0.8 Eos # (Auto) 0.8 H Baso # (Auto) 0.1 Sodium 136 Potassium 4.3 Chloride 104 Carbon Dioxide 25 Anion Gap 11.3 BUN 13 Creatinine 1.30 Estimated Creat Clear 50 Estimated GFR 54 L Est GFR ( Amer) 66 Glucose 95 POC Glucose 92 Calcium 8.3 L Magnesium 1.9 06/29/19 06/29/19 06/29/19 21:14 16:27 11:52 WBC RBC Hgb Hct MCV MCH MCHC RDW Plt Count MPV Neut % (Auto) Lymph % (Auto) [place] % (Auto) Eos % (Auto) Baso % (Auto) Neut # (Auto) Lymph # (Auto) [place] # (Auto) Eos # (Auto) Baso # (Auto) Sodium Potassium Chloride Carbon Dioxide Anion Gap BUN Creatinine Estimated Creat Clear Estimated GFR Est GFR ( Amer) Glucose POC Glucose 89 94 102 Calcium Magnesium Preliminary micro results at discharge 06/27/19 17:23 Blood Culture - Preliminary Blood NO GROWTH AFTER 48 HOURS 06/27/19 17:15 Blood Culture - Preliminary Blood NO GROWTH AFTER 48 HOURS DS: Diagnosis - Discharge Diagnosis (1) Morbid obesity with BMI of 45.0-49.9, adult Status: Chronic (2) Cellulitis of right leg Status: Acute (3) Lymphedema of both lower extremities Status: Acute (4) Onychogryposis of toenail Status: Acute (5) Osteoarthritis of both ankles and feet Status: Acute (6) BPH (benign prostatic hyperplasia) Status: Chronic (7) Chronic acquired lymphedema Status: Acute (8) Hypertension Status: Chronic (9) Left leg cellulitis Status: Acute (10) Peripheral vascular disease Status: Acute (11) FRANCESCA (acute kidney injury) Status: Acute Discharge Plan - Patient Discharge Instructions ACTIVITY: Continue current activity DIET: continue same diet Patient Instructions: DI for Cellulitis -- Adult, Peripheral Artery Disease, DI for Osteomyelitis, DI for Lymphedema - Follow up Plan Follow up with: Luis Marino MD [Staff Physician] - Disposition: Home, Self-Usp Medications: Home Medications Medication Instructions Recorded Confirmed Type carvedilol 25 mg tablet 25 mg PO BID 30 Days #60 01/17/18 06/27/19 History fluticasone propionate 50 1 spr INTRANASAL HS 60 Days #16 01/17/18 06/27/19 History mcg/actuation nasal spray,suspension Aspirin [Aspirin 81mg chewable 81 mg PO DAILY 04/04/18 06/27/19 History tab] Tamsulosin HCl [Flomax 0.4mg 0.8 mg PO HS 04/04/18 06/28/19 History capsule] raNITIdine HCl [Ranitidine HCl] 150 mg PO BID 04/04/18 06/27/19 History Amoxicillin/Potassium Clav 1 tab PO Q12H 10 Days #20 tab 06/30/19 Rx [Augmentin 875-125 Tablet] Sulfamethoxazole/Trimethoprim 1 each PO BID 10 Days #20 tab 06/30/19 Rx [Bactrim DS tablet] Prescriptions/Medication Reconciliation: Continued carvedilol 25 mg tablet 25 mg PO BID 30 Days #60 fluticasone propionate 50 mcg/actuation nasal spray,suspension 1 spr INTRANASAL HS 60 Days #16 raNITIdine HCl [Ranitidine HCl] 150 mg PO BID Aspirin [Aspirin 81mg chewable tab] 81 mg PO DAILY Tamsulosin HCl [Flomax 0.4mg capsule] 0.8 mg PO HS - Problem Reconciliation Problems Reviewed?: Yes
--- NOTE | 2019-06-30 10:43 | Progress Note ---
Subjective Date: 06/30/19 <PitaIsabelle Dong - 06/30/19 11:05> Time: 08:30 <PitaIsabelle Dong - 06/30/19 11:05> Interval history: Mr. Vega, 73-year-old male who was directly admitted from the ER via Dr. Marino's office for evaluation of bilateral lower extremity cellulitis. Patient has recurrent lymphedema with cellulitic infections. The patient is resting in bed this morning with no complaints of acute pain and no drainage from his B/L lower legs, Patient's legs were covered with unna boots placed from wound thereapy yesterday. Will remove them today to check healing progress and will re-apply unna boots again for the patient to wear home and leave in place for 3- 5 days or until his follow up with lymphedema clinic. Patient is planning to be discharged later on today.Patient has been receiving IV antibiotics (Vancomycin 2.5 gm & Zosyn 3.375gm) and tolerating therapy well. <Isabelle Lema - 06/30/19 11:05> PN: Obj Ex Vital signs: Temp Pulse Resp BP Pulse Ox 97.6 F 71 19 158/84 H 97 06/30/19 07:51 06/30/19 07:51 06/30/19 07:51 06/30/19 07:51 06/30/19 08:00 <Keila Brito - 06/30/19 11:54> Temp Pulse Resp BP Pulse Ox 97.6 F 71 19 158/84 H 97 06/30/19 07:51 06/30/19 07:51 06/30/19 07:51 06/30/19 07:51 06/30/19 08:00 <PitaIsabelle L - 06/30/19 11:05> - Constitutional no acute distress, cooperative <Isabelle Lema - 06/30/19 11:05> - Routine HEENT Exam Head: Present: normocephalic <Isabelle Lema - 06/30/19 11:05> ENT: Present: mucous membranes moist <Isabelle Lema - 06/30/19 11:05> - Routine Neck Exam Present: supple, full ROM. Absent: JVD <Isabelle Lema 06/30/19 11:05> - Routine Respiratory Exam Absent: respiratory distress <Isabelle Lema 06/30/19 11:05> - Routine Cardiovascular Exam Present: RRR, tachycardia <Isabelle Lema 06/30/19 11:05> - Routine Abdominal Exam Present: obese <Isabelle Lema 06/30/19 11:05> - Routine Extremities Exam Present: edema, pulses intact, normal capillary refill. Absent: calf tenderness <Isabelle Lema 06/30/19 11:05> - Detailed Extremities Exam: Vascular Peripheral pulses: 1+ posterior tibialis (L), 1+ posterior tibialis (R), 1+ dorsalis pedis (L), 1+ dorsalis pedis (R) <Isabelle Lema 06/30/19 11:05> - Detailed Lower Extremity Exam Lower leg: Bilateral swelling, Bilateral tenderness, Bilateral erythema, Bilateral warmth <Isabelle Lema 06/30/19 11:05> Foot/Toes: Left erythema (2nd toe ), Bilateral nail abnormalities, Bilateral onychomycosis <Isabelle Lema 06/30/19 11:05> Leg image: 1 - Right leg lymphedema, cellulitis. Unna boots applied today. 2 - Left leg lymphedema and cellulitis. Unna boots placed today. <Isabelle Lema 06/30/19 11:05> Top foot image: 1 - small place on left foot, scabbed, no visbile drainage. <Isabelle Lema 06/30/19 11:05> - Routine Skin Exam Present: erythema, dry, warm <Isabelle Lema - 06/30/19 11:05> Comments: No deep areas of ulceration or sinus tracks. Skin temp wnl. Edema and erythema improving to b/l LE. <Keila Brito - 06/30/19 11:41> Lymphedema and cellulitis noted to b/l lower extremities, looks much better after applying unna boots. Edema improving, will re-apply unna boots again today. <Isabelle Lema Dong - 06/30/19 11:05> - Routine Neurological Exam Present: alert, oriented X3 <Isabelle Lema Dong - 06/30/19 11:05> - Routine Psychiatric Exam Present: normal affect, cooperative <Isabelle Lema - 06/30/19 11:05> Progress Note: A&P (1) Morbid obesity with BMI of 45.0-49.9, adult Status: Chronic (2) Cellulitis of right leg Status: Acute (3) Lymphedema of both lower extremities Status: Acute (4) Onychogryposis of toenail Status: Acute (5) Osteoarthritis of both ankles and feet Status: Acute (6) BPH (benign prostatic hyperplasia) Status: Chronic (7) Chronic acquired lymphedema Status: Acute (8) Hypertension Status: Chronic (9) Left leg cellulitis Status: Acute (10) Peripheral vascular disease Status: Acute (11) FRANCESCA (acute kidney injury) Status: Acute <Keila Brito - 06/30/19 11:54> (1) Morbid obesity with BMI of 45.0-49.9, adult Start date: 06/30/19 Status: Chronic (2) Cellulitis of right leg Start date: 06/30/19 Status: Acute (3) Lymphedema of both lower extremities Start date: 06/30/19 Status: Acute (4) Onychogryposis of toenail Start date: 06/30/19 Status: Acute (5) Osteoarthritis of both ankles and feet Start date: 06/30/19 Status: Acute (6) BPH (benign prostatic hyperplasia) Start date: 06/30/19 Status: Chronic (7) Chronic acquired lymphedema Start date: 06/30/19 Status: Acute (8) Hypertension Start date: 06/30/19 Status: Chronic (9) Left leg cellulitis Start date: 06/30/19 Status: Acute (10) Peripheral vascular disease Start date: 06/30/19 Status: Acute (11) FRANCESCA (acute kidney injury) Start date: 06/30/19 Status: Acute <Isabelle Lema - 06/30/19 11:53> Assessment and Plan for All Diagnoses:: I agree with the above plan. Overall patient is doing better. The redness and swelling in the legs have improved with the IV antibiotics and compression therapy. Discussed plan of care with Dr. Marino. Agree with transitioning patient from IV antibiotics to oral antibiotics. He will need oral antibiotics to be discharged home on. New Unna boots were applied to bilateral lower extremity today. Follow-up with wound care/lymphedema clinic for continued compression therapy. Educated the patient about routine foot care. We also discussed patient compliance with compression therapy. He will follow-up outpatient in the nail clinic for usp on-going routine skin checks and nail debridements. Physician Attestation I was present during all of the critical components of the office visit. The patient was seen, evaluated and examined by me. I have read the office note that was documented by the staff and/or GERMINATION WORKER and agree with the documentation. <Keila Brito - 06/30/19 11:54> Patient doing well and plans to be discharged to home later on today. Plan: 1. Patient had MRI done; ruled out Osteomyelitis in his left foot 2. Applied Unna Boots B/L legs stay in place for at least 3 days. 4. Continue antibiotic therapy as per PCP. 5. Consult with Wound Clinic for (Lymphedema) and Unna Boot therapy. 6. Plan for dishcharge home today and follow up in Podiatry for RFC. <Isabelle Lema - 06/30/19 11:08>
== END 2019-06-30 10:38 | disposition home or self-care (01) | DRG 607 ==
LOC: 2ND 15:49
PROVIDERS: ADMIT Internal Medicine Adolescent Medicine; ATTEND Internal Medicine Adolescent Medicine
CPT/HCPCS: 36415; 73590; 73610; 73630; 73720; 80048; 80053; 80202; 82962; 83735; 85025; 85651; 86140; 87040; 90686; A9576; J2543; J3370

== ENCOUNTER → 2019-09-18 16:36 | Outpatient (CLI) | payer MEDICARE, OTHER, SELFPAY | PROVIDERS: Visit Provider Podiatrist | DX: S91.105A Unspecified open wound of left lesser toe(s) without damage to nail, initial encounter (principal) | CPT/HCPCS: 87070; 87077; 87186; 87205 ==

== ENCOUNTER 2019-11-16 13:00 | Outpatient (RCR) | payer MEDICARE, OTHER, SELFPAY ==
--- NOTE | 2018-09-14 10:46 | HMH.PTOPWND ---
Rehab Outpt Wound Evaluation Rehab OP Wound Evaluation Start: 09/14/18 10:37 Freq: Status: Active Protocol: Document 09/14/18 10:37 PAWAN (Rec: 09/14/18 10:46 PHORRIANNA [id number]) Electronically Signed By Jarad Gomes, PT 09/14/18 10:37 Subjective/History History History Pt is a 73 yowm who presents with c/o left LE pain, edema, weeping drainage, and open sores x ~ 1-2 mos. He reports being treated for cellulitis ~ 1 mo ago with oral abx, but has had limited improvement of symptoms. He reports increased pain and tenderness to palpation with insidious onset of symptoms. He has several yr hx of CVI with multiple bouts of cellulitis and he underwent sylvia LE venous stenting ~ 6 mos ago. He also had left CESAR ~ 2 yrs ago. PMH : HTN, CVI Subjective Subjective Currently he c/o mild pain, but 3+ tenderness to palpation throughout the left calf. Multiple wounds present on the left lower leg, the largest was measured. Most wounds are superficial. Significant sylvia LE hemosiderin staining. Wound Eval Wound Left Medial Calf Wound Type Stasis Ulcer Is This a Chronic Wound Yes Wound Length (cm) 4.2 Wound Width (cm) 2.1 Wound Depth (cm) 0.2 Wound Bed Appearance Beefy Red Yellow Percentage Granulated (%) 50 Percentage of Slough (%) 50 Wound Margins Description Well Defined Surrounding Tissue Appearance [place] Edematous Edema Type Pitting Edema Degree 2+ Query Text:1+ Trace, Barely Detectable, Rebound 15-30 seconds 2+ Moderate, Slight Indentation, Rebound 10-20 seconds 3+ Deep, Deeper Indentation, Rebound > 30 seconds 4+ Very Deep, Rebound > 60 seconds Edema Appearance Weeping Hard Open Sores Drainage Description Serous Drainage Odor No Odor Primary Dressing Silver Dressing Comment
--- NOTE | 2018-12-26 16:07 | HMH.RHREAS ---
Rehab Reassessment Rehab OP Re-assessment Start: 12/26/18 16:03 Freq: Status: Active Protocol: Document 12/26/18 16:04 PAWAN (Rec: 12/26/18 16:07 PAWAN [id number]) Electronically Signed By Jarad Gomes, PT 12/26/18 16:04 Rehab Re-assessment Subjective Subjective Pt reports increased pain yesterday after feeling better for ~ 1 wk prior to that. Objective Objective Notes Left anterior lower leg again appears red and irritated with macerated skin and increased serous drainage noted from the wound area. Increased mildly foul odor also. Assessment Progress Assessment Slower Than Expected Assessment Notes Pt wound healing and severity of drainage continue to fluctuate, edema is improved. Patient goals met ST,2,3,4 Goals Not Met LT,2,3,4,5,6,7,8 Revised Goals none Plan Plan continue per initial POC. Frequency of Therapy 2x/wk Duration of therapy 8 wks Time and Billing Re-Eval Time 15 Re-Eval Billing Units 1 PHYSICIAN CERTIFICATION: I certify the specified therapy services for Riki Mckeon are required, authorized, and reviewed every 30 days.
--- NOTE | 2019-05-15 14:32 | HMH.RHREAS ---
Rehab Reassessment Rehab OP Re-assessment Start: 12/26/18 16:03 Freq: Status: Active Protocol: Document 05/15/19 14:29 PAWAN (Rec: 05/15/19 14:31 PAWAN [id number]) Electronically Signed By Jarad Gomes, PT 05/15/19 14:29 Rehab Re-assessment Subjective Subjective Pt reports he feels he was better while taking oral antibiotics. Objective Objective Notes B LE with continued open sore, increased serous drainage in copious amts, and maceration of the tissues worse at the ankle. Assessment Progress Assessment Slower Than Expected Assessment Notes Pt continues to have severe drainage despite all wound care treatments and compression therapy up to this point. Maceration is concerning for further skin damage. Patient goals met ST,2,3,4 Goals Not Met LT,2,3,4,5,6,7,8 Revised Goals none Plan Plan continue per initial POC. Frequency of Therapy 2x/wk Duration of therapy 8 wks Time and Billing Re-Eval Time 15 Re-Eval Billing Units 1 PHYSICIAN CERTIFICATION: I certify the specified therapy services for Riki Mckeon are required, authorized, and reviewed every 30 days.
--- NOTE | 2019-07-05 11:23 | HMH.RHREAS ---
Rehab Reassessment Rehab OP Re-assessment Start: 12/26/18 16:03 Freq: Status: Active Protocol: Document 07/05/19 11:21 PAWAN (Rec: 07/05/19 11:22 PAWAN [id number]) Electronically Signed By Jarad Gomes, PT 07/05/19 11:21 Rehab Re-assessment Subjective Subjective Pt reports feeling significantly better. Objective Objective Notes Significant reduction in edema and open sores after recent hospitalization and abx treatment. Assessment Progress Assessment Progressing as Expected Assessment Notes Pt with considerably less drainage and maceration, dry skin remains. Patient goals met ST,2,3,4 Goals Not Met LT,2,3,4,5,6,7,8 Revised Goals none Plan Plan continue per initial POC. Frequency of Therapy 2x/wk Duration of therapy 8 wks Time and Billing Re-Eval Time 15 Re-Eval Billing Units 0 PHYSICIAN CERTIFICATION: I certify the specified therapy services for Riki Mckeon are required, authorized, and reviewed every 30 days.
--- NOTE | 2019-08-01 09:57 | HMH.RHREAS ---
Rehab Reassessment Rehab OP Re-assessment Start: 12/26/18 16:03 Freq: Status: Active Protocol: Document 08/01/19 09:52 PAWAN (Rec: 08/01/19 09:57 PAWAN [id number]) Electronically Signed By Jarad Gomes, PT 08/01/19 09:52 Rehab Re-assessment Subjective Subjective Pt reports no c/o pain or discomfort, he like the edema wear compression wrapping that is now being used on his legs . Objective Objective Notes B LE continues to present with 3+ pitting edema, moderate serous drainage from small open sores, and severe dry and flaky skin. Assessment Progress Assessment Progressing as Expected Assessment Notes B LE with less open sores and less weeping. Right lateral malleolus remains somewhat macerated with moderate serous drainage noted. Patient goals met ST,2,3,4 Goals Not Met LT,2,3,4,5,6,7,8 Revised Goals none Plan Plan continue per initial POC. Frequency of Therapy 2x/wk Duration of therapy 8 wks Time and Billing Re-Eval Time 15 Re-Eval Billing Units 0 PHYSICIAN CERTIFICATION: I certify the specified therapy services for Riki Mckeon are required, authorized, and reviewed every 30 days.
--- NOTE | 2019-11-10 15:47 | HMH.RHREAS ---
Rehab Reassessment Rehab OP Re-assessment Start: 12/26/18 16:03 Freq: Status: Active Protocol: Document 11/10/19 15:44 PAWAN (Rec: 11/10/19 15:47 PHOHALEY [id number]) Electronically Signed By Jarad Gomes, PT 11/10/19 15:44 Rehab Re-assessment Subjective Subjective Pt reports, My right leg has started leaking again. Objective Objective Notes Pt presents with multiple small sores open on the R lower leg. The worst area is the medial malleolus which has 3-4 small sores and mild maceration. Copious serous drainage noted from all sores, some of which are obvious areas of excoriation. Pitting edeam 2/4 again noted. Assessment Progress Assessment Slower Than Expected Assessment Notes Pt with increased serous drainage noted and maceration of tissues that was not present last visit. Patient goals met ST,2,3,4 Goals Not Met LT,2,3,4,5,6,7,8 Revised Goals none Plan Plan continue per initial POC. Frequency of Therapy 2x/wk Duration of therapy 8 wks Time and Billing Re-Eval Time 15 Re-Eval Billing Units 0 PHYSICIAN CERTIFICATION: I certify the specified therapy services for Riki Mckeon are required, authorized, and reviewed every 30 days.
== END 2019-11-16 13:05 | disposition home or self-care (01) ==
LOC: PT 13:00
PROVIDERS: Visit Provider Podiatrist
DX: I89.0 Lymphedema, not elsewhere classified (principal)
CPT/HCPCS: 29580; 87070; 87077; 87186; 87205; 97140; 97162; 97164; 97597; 97760

== ENCOUNTER → 2019-11-19 13:41 | Observation (INO) ==
[2019-11-18 12:26] LABS: Basophils # 0.1 K/mm3 (0-0.2); Basophils % 0.8 % (0.1-2.0); Eosinophils # 0.8 K/mm3 (0.0-0.4); Eosinophils % 7.1 % (0.1-12.0); Hematocrit 38.6 % (42.0-52.0); Lymphocytes # 2.1 K/mm3 (0.7-4.5); Lymphocytes % 18.2 % (10-50); Mean Corpuscular HGB Conc 31.1 g/dL (31.8-35.4); Mean Corpuscular Volume 93.3 fl (80-94); Monocytes # 0.9 K/mm3 (0.1-1.0); Monocytes % 7.9 % (1.7-9.3); Neutrophils # 7.7 K/mm3 (1.8-7.8); Neutrophils % 65.9 % (37.0-80.0); Platelet Count 353 K/mm3 (142-424); Red Blood Count 4.14 M/mm3 (4.60-6.20); Red Cell Distribution Width 14.2 % (11.5-17.5); White Blood Count 11.7 K/mm3 (4.8-10.8)
[2019-11-18 12:36] LABS: Albumin Level 3.9 g/dl (3.5-5.0); Anion Gap 10.5 mEq/L (5-15); Bilirubin,Total 0.2 mg/dl (0.2-1.3); Calcium 8.3 mg/dl (8.4-10.2); Globulin 3.9 g/dL (1.3-3.2); Total Protein,Serum 7.8 g/dl (6.3-8.2)
--- NOTE | 2019-11-18 12:45 | History & Physical Report ---
*Admission Date: 11/18/19 *Chief complaint: leg swelling, redness, and pain *History of present illness: 74-year-old gentleman with chronic lymphedema who is well-known to our clinic. Presented to clinic earlier today due to pain in his right ankle and weeping of his left lower leg. Noted to have significant excoriation of the anterior right ankle and discomfort along with warmth. Left leg had 2 areas that were weeping clear to yellow fluid. Given foul smell of left leg, persistent warmth and edema, and excoriation of left ankle, patient admitted for concern for cellulitis in his chronic lymphedema. Otherwise patient denies fever, nausea, vomiting, diarrhea, chest pain, shortness of breath, systemic symptoms. [facility] History I have reviewed the patient's past medical history: Yes Medical History: Reports:: BPH, Hypertension, Peripheral Artery Disease Denies:: Cancer, Diabetes Mellitus Type 1, Diabetes Mellitus Type 2, MRSA *Have you ever received a pneumonia vaccine?: Yes *Have you received a flu vaccine this season?: Yes Other Medical History: Reports: Arthritis, Cataracts Laterality Cases: Left: Total Hip Replacement Other Surgeries: Yes: Other Amputation: No Fractures: No - *Social History Educational Level: Completed College Smoking Status: Former smoker Tobacco Type: cigars # Packs/Day (cigarettes): 1 #Yrs smoked (if former smoker): 0 Alcohol Intake: never Alcohol Intake Frequency:: other Substance Use Type: denies use *Occupational Status:: employed Housing: apartment Household Members: none *Travel in the last 8 weeks: None Family Hx:: Cancer, Heart Attack Review of Systems - Review of Systems Review of systems:: pertinent systems reviewed and negative unless documented below (14 point review of systems performed, pertinent positives and negatives as per HPI) Meds Home Medications Medication Instructions Recorded Confirmed Type carvedilol 25 mg tablet 25 mg PO BID 30 Days #60 01/17/18 11/18/19 History fluticasone propionate 50 1 spr INTRANASAL HS PRN 60 Days #16 01/17/18 11/18/19 History mcg/actuation nasal spray,suspension Tamsulosin HCl [Flomax 0.4mg 0.8 mg PO HS 04/04/18 11/18/19 History capsule] raNITIdine HCL [Ranitidine HCl] 150 mg PO BID 04/04/18 11/18/19 History furosemide 40 mg tablet 40 mg PO DAILY 11/14/19 11/18/19 History Aspirin [Aspir-Low] 81 mg PO DAILY 11/18/19 11/18/19 History Sulfamethoxazole/Trimethoprim 1 each PO BID 9 Days #18 tab 11/19/19 Rx [Bactrim DS tablet] cephALEXin [Keflex 500mg Cap] 500 mg PO BID 9 Days #18 cap 11/19/19 Rx Allergies Allergy/AdvReac Type Severity Reaction Status Date / Time Antihistamines - Alkylamine Allergy Mild MADE SKIN Verified 11/14/19 11:42 [ANTIHISTAMINES - ALKYLAMINE] FEEL LIKE ON FIRE NSAIDS (Non-Steroidal AdvReac Severe kidney Verified 11/14/19 11:42 Anti-Inflamma failure Exam Vital signs and Labs for Last 24 Hours: Temp Pulse Resp BP Pulse Ox 97.6 F 68 20 145/53 H 98 11/18/19 11:33 11/18/19 11:33 11/18/19 11:33 11/18/19 11:33 11/18/19 11:33 Laboratory Results - last 24 hr 11/18/19 12:00: WBC 11.7 H, RBC 4.14 L, Hgb 12.0 L, Hct 38.6 L, MCV 93.3, MCH 29.0, MCHC 31.1 L, RDW 14.2, Plt Count 353, MPV 7.0 L, Neut % (Auto) 65.9, Lymph % (Auto) 18.2, [place] % (Auto) 7.9, Eos % (Auto) 7.1, Baso % (Auto) 0.8, Neut # (Auto) 7.7, Lymph # (Auto) 2.1, [place] # (Auto) 0.9, Eos # (Auto) 0.8 H, Baso # (Auto) 0.1 11/18/19 12:00: Sodium 139, Potassium 4.5, Chloride 107, Carbon Dioxide 26, Anion Gap 10.5, BUN 22 H, Creatinine 1.30 H, Estimated Creat Clear 49, Estimated GFR 54 L, Est GFR ( Amer) 65, Glucose 111 H, Calcium 8.3 L, Magnesium 1.7, Total Bilirubin 0.2, AST 21, ALT 17, Alkaline Phosphatase 91, Total Protein 7.8, Albumin 3.9, Globulin 3.9 H, Albumin/Globulin Ratio 1.0 L I & O for Last 24 hours: Intake & Output 11/15/19 11/16/19 11/17/19 11/18/19 23:59 23:59 23:59 23:59 Weight 135.199 kg - Constitutional no acute distress, morbidly obese - *Routine HEENT Exam Head: Present: normocephalic Eye: Present: EOMI, PERRL ENT: Present: mucous membranes moist - *Routine Neck Exam Present: supple. Absent: lymphadenopathy - *Routine Respiratory Exam Present: CTA bilaterally - *Routine Cardiovascular Exam Present: RRR - *Routine Abdominal Exam Present: soft, normoactive bowel sounds. Absent: tenderness - *Routine Extremities Exam Present: edema (2+ to thigh). Absent: cyanosis Comments: Hyperkeratotic bilaterally most prominent on ankles and heels. Flaking of skin from lower extremities. Chronic lymphedema. Erythematous abrasion anterior right ankle; foul smell to left lower leg - *Routine Skin Exam Present: warm Comments: See above - *Routine Neurological Exam Present: alert, oriented X3 Assessment and Plan (1) Morbid obesity with BMI of 45.0-49.9, adult Current visit: Yes Status: Chronic Category: Medical Code(s): E66.01 - Morbid (severe) obesity due to excess calories; Z68.42 - Body mass index (BMI) 45.0-49.9, adult Complicates all aspects of his care (2) Bilateral lower leg cellulitis Current visit: Yes Status: Acute Category: Medical Code(s): L03.116 - Cellulitis of left lower limb; L03.115 - Cellulitis of right lower limb (3) Lymphedema of both lower extremities Current visit: No Status: Chronic Category: Medical Code(s): I89.0 - Lymphedema, not elsewhere classified (4) Hypertension Current visit: No Status: Chronic Qualifiers: Hypertension type: essential hypertension Qualified Code(s): I10 - Essential (primary) hypertension Category: Medical Code(s): I10 - Essential (primary) hypertension - Assessment and plan all Dx Assessment and Plan for all problems:: Admitted from clinic due to concern for bilateral cellulitis, foul drainage from left leg, need for wound care and IV antibiotics. Initiated on vancomycin and cefepime. Wound consult placed. Will monitor overnight, if tolerates antibiotics and shows improvement, will plan to transition oral antibiotics tomorrow and discharge home with home health for Unna boot management and lymphedema care.
--- NOTE | 2019-11-18 13:01 | Pharmacy Consult Notes ---
- Pharmacy Consult Date: 11/18/19 Time: 12:59 Referring provider: DR. MCDUFFIE Reason for Consult:: VANCOMYCIN DOSING Allergies and ADEs:: Allergies Allergy/AdvReac Type Severity Reaction Status Date / Time Antihistamines - Alkylamine Allergy Mild MADE SKIN Verified 11/14/19 11:42 [ANTIHISTAMINES - ALKYLAMINE] FEEL LIKE ON FIRE NSAIDS (Non-Steroidal AdvReac Severe kidney Verified 11/14/19 11:42 Anti-Inflamma failure Home Medications:: Home Medications Medication Instructions Recorded Confirmed Type carvedilol 25 mg tablet 25 mg PO BID 30 Days #60 01/17/18 11/18/19 History fluticasone propionate 50 1 spr INTRANASAL HS PRN 60 Days #16 01/17/18 11/18/19 History mcg/actuation nasal spray,suspension Aspirin [Aspirin 81mg chewable 81 mg PO DAILY 04/04/18 11/14/19 History tab] Tamsulosin HCl [Flomax 0.4mg 0.8 mg PO HS 04/04/18 11/18/19 History capsule] raNITIdine HCL [Ranitidine HCl] 150 mg PO BID 04/04/18 11/18/19 History Amoxicillin/Potassium Clav 1 tab PO Q12H 10 Days #20 tab 06/30/19 11/14/19 Rx [Augmentin 875-125 Tablet] furosemide 40 mg tablet 40 mg PO DAILY 11/14/19 11/18/19 History Aspirin [Aspir-Low] 81 mg PO DAILY 11/18/19 11/18/19 History Sulfamethoxazole/Trimethoprim 1 each PO BID 11/18/19 11/18/19 History [Bactrim DS tablet] Height: 1.73 m Weight: 135.199 kg Laboratory Results:: Laboratory Results - last 24 hr 11/18/19 12:00: WBC 11.7 H, RBC 4.14 L, Hgb 12.0 L, Hct 38.6 L, MCV 93.3, MCH 29.0, MCHC 31.1 L, RDW 14.2, Plt Count 353, MPV 7.0 L, Neut % (Auto) 65.9, Lymph % (Auto) 18.2, [place] % (Auto) 7.9, Eos % (Auto) 7.1, Baso % (Auto) 0.8, Neut # (Auto) 7.7, Lymph # (Auto) 2.1, [place] # (Auto) 0.9, Eos # (Auto) 0.8 H, Baso # (Auto) 0.1 11/18/19 12:00: Sodium 139, Potassium 4.5, Chloride 107, Carbon Dioxide 26, Anion Gap 10.5, BUN 22 H, Creatinine 1.30 H, Estimated Creat Clear 49, Estimated GFR 54 L, Est GFR ( Amer) 65, Glucose 111 H, Calcium 8.3 L, Magnesium 1.7, Total Bilirubin 0.2, AST 21, ALT 17, Alkaline Phosphatase 91, Total Protein 7.8, Albumin 3.9, Globulin 3.9 H, Albumin/Globulin Ratio 1.0 L Medical History: Reports:: BPH, Hypertension, Peripheral Artery Disease Denies:: Cancer, Diabetes Mellitus Type 1, Diabetes Mellitus Type 2, MRSA Assessment and Plan - Assessment and plan all Dx Assessment and Plan for all problems:: BASED ON PATIENT'S FACTORS, RECOMMEND STARTING WITH VANCOMYCIN 2000 MG Q18H. PHARMACY WILL FOLLOW DAILY AND ADJUST APPROPRIATE.
[2019-11-19 07:01] LABS: Basophils % 0.2 % (0.1-2.0); Eosinophils # 0.8 K/mm3 (0.0-0.4); Eosinophils % 7.4 % (0.1-12.0); Hematocrit 37.4 % (42.0-52.0); Hemoglobin 11.9 g/dL (14.1-18.0); Lymphocytes # 1.2 K/mm3 (0.7-4.5); Lymphocytes % 10.7 % (10-50); Mean Corpuscular HGB Conc 31.8 g/dL (31.8-35.4); Mean Corpuscular Volume 92.3 fl (80-94); Mean Platelet Volume 6.9 fl (7.4-10.4); Monocytes # 0.5 K/mm3 (0.1-1.0); Monocytes % 4.6 % (1.7-9.3); Neutrophils # 8.2 K/mm3 (1.8-7.8); Platelet Count 341 K/mm3 (142-424); Red Blood Count 4.05 M/mm3 (4.60-6.20); Red Cell Distribution Width 14.1 % (11.5-17.5); White Blood Count 10.7 K/mm3 (4.8-10.8)
[2019-11-19 07:04] LABS: Anion Gap 11.3 mEq/L (5-15); Calcium 7.8 mg/dl (8.4-10.2)
--- NOTE | 2019-11-19 07:58 | Pharmacy Consult Notes ---
[facility] Pharmacy VTE Monitoring - Patient Demographics Admission date: 11/19/19 Report Date: 11/19/19 Time: 07:57 Allergies/Adverse Reactions: Patient Allergies Antihistamines - Alkylamine [ANTIHISTAMINES - ALKYLAMINE] Allergy (Mild, Verified 11/14/19 11:42) MADE SKIN FEEL LIKE ON FIRE NSAIDS (Non-Steroidal Anti-Inflamma Adverse Reaction (Severe, Verified 11/14/19 11:42) kidney failure Height: 1.73 m Weight: 135.199 kg - VTE Risk Labs: VTE Related Lab Results Hgb 11.9 g/dL (14.1-18.0) L 11/19/19 06:35 Hct 37.4 % (42.0-52.0) L 11/19/19 06:35 Plt Count 341 K/mm3 (142-424) 11/19/19 06:35 BUN 22 mg/dl (9-20) H 11/19/19 06:35 Creatinine 1.30 mg/dl (0.66-1.25) H 11/19/19 06:35 Estimated Creat Clear 49 mL/min (50-200) 11/19/19 06:35 VTE Score: 4 VTE Risk Level: Low Risk - Prophylaxis Types of VTE Prophylaxis: Pharmacological Location of Applied Device: Not Applicable - VTE Diagnosis Confirmed Treatment or plan recommended: Add Enoxaparin (LOVENOX IS ORDERED)
--- NOTE | 2019-11-19 10:05 | Discharge Summary ---
General - General Admission date:: 11/18/19 Discharge date: 11/19/19 HPI HPI: 74-year-old gentleman with chronic lymphedema who is well-known to our clinic. Presented to clinic earlier today due to pain in his right ankle and weeping of his left lower leg. Noted to have significant excoriation of the anterior right ankle and discomfort along with warmth. Left leg had 2 areas that were weeping clear to yellow fluid. Given foul smell of left leg, persistent warmth and edema, and excoriation of left ankle, patient admitted for concern for cellulitis in his chronic lymphedema. Otherwise patient denies fever, nausea, vomiting, diarrhea, chest pain, shortness of breath, systemic symptoms. Hospital Course Hospital Course: Admitted for IV antibiotics. Legs cleaned with Betadine solution, wound care co nsulted, dressed with Unna boots. Improvement overnight. Remained hemodynamically stable without fever. Transition oral antibiotics to complete 10 days of antibiotic therapy. Set up with home health, care tenders will follow him in the outpatient setting and continue at home care of lymphedema. Follow-up in the next 2 weeks with our office. Stable for discharge home. Denies chest pain, fever, nausea, vomiting, diarrhea, pain. Objective Vital signs: Temp Pulse Resp BP Pulse Ox 97.9 F 71 20 148/56 H 97 11/19/19 08:00 11/19/19 08:00 11/19/19 08:00 11/19/19 08:00 11/19/19 08:00 Narrative: - Constitutional no acute distress, morbidly obese - *Routine HEENT Exam Head: Present: normocephalic Eye: Present: EOMI, PERRL ENT: Present: mucous membranes moist - *Routine Neck Exam Present: supple. Absent: lymphadenopathy - *Routine Respiratory Exam Present: CTA bilaterally - *Routine Cardiovascular Exam Present: RRR - *Routine Abdominal Exam Present: soft, normoactive bowel sounds. Absent: tenderness - *Routine Extremities Exam Present: edema (2+ to thigh). Absent: cyanosis Comments: Hyperkeratotic bilaterally most prominent on ankles and heels. Flaking of skin from lower extremities improved since cleaning and placing Unna boots. Chronic lymphedema. Significant improvement in erythematous abrasion anterior right ankle; decreased unpleasant odor from left leg *Routine Skin Exam Present: warm Comments: See above - *Routine Neurological Exam Present: alert, oriented X3 Results Labs on day of discharge: Labs from last 24 hours 11/19/19 11/19/19 11/18/19 06:35 06:35 12:00 WBC 10.7 RBC 4.05 L Hgb 11.9 L Hct 37.4 L MCV 92.3 MCH 29.3 MCHC 31.8 RDW 14.1 Plt Count 341 MPV 6.9 L Neut % (Auto) 77.0 Lymph % (Auto) 10.7 Davis % (Auto) 4.6 Eos % (Auto) 7.4 Baso % (Auto) 0.2 Neut # (Auto) 8.2 H Lymph # (Auto) 1.2 Davis # (Auto) 0.5 Eos # (Auto) 0.8 H Baso # (Auto) 0.0 Sodium 136 139 Potassium 4.3 4.5 Chloride 103 107 Carbon Dioxide 26 26 Anion Gap 11.3 10.5 BUN 22 H 22 H Creatinine 1.30 H 1.30 H Estimated Creat Clear 49 49 Estimated GFR 54 L 54 L Est GFR ( Amer) 65 65 Glucose 102 H 111 H Calcium 7.8 L 8.3 L Magnesium 1.5 L D 1.7 Total Bilirubin 0.2 AST 21 ALT 17 Alkaline Phosphatase 91 Total Protein 7.8 Albumin 3.9 Globulin 3.9 H Albumin/Globulin Ratio 1.0 L 11/18/19 12:00 WBC 11.7 H RBC 4.14 L Hgb 12.0 L Hct 38.6 L MCV 93.3 MCH 29.0 MCHC 31.1 L RDW 14.2 Plt Count 353 MPV 7.0 L Neut % (Auto) 65.9 Lymph % (Auto) 18.2 Davis % (Auto) 7.9 Eos % (Auto) 7.1 Baso % (Auto) 0.8 Neut # (Auto) 7.7 Lymph # (Auto) 2.1 Davis # (Auto) 0.9 Eos # (Auto) 0.8 H Baso # (Auto) 0.1 Sodium Potassium Chloride Carbon Dioxide Anion Gap BUN Creatinine Estimated Creat Clear Estimated GFR Est GFR ( Amer) Glucose Calcium Magnesium Total Bilirubin AST ALT Alkaline Phosphatase Total Protein Albumin Globulin Albumin/Globulin Ratio DS: Diagnosis - Discharge Diagnosis (1) Bilateral lower leg cellulitis Status: Acute (2) Morbid obesity with BMI of 45.0-49.9, adult Status: Chronic (3) Hypertension Status: Chronic (4) Lymphedema of both lower extremities Status: Chronic Discharge Plan - Patient Discharge Instructions ACTIVITY: Continue current activity DIET: continue same diet - Follow up Plan Disposition: Home Health Service Home Medications: Home Medications Medication Instructions Recorded Confirmed Type carvedilol 25 mg tablet 25 mg PO BID 30 Days #60 01/17/18 11/18/19 History fluticasone propionate 50 1 spr INTRANASAL HS PRN 60 Days #16 01/17/18 11/18/19 History mcg/actuation nasal spray,suspension Tamsulosin HCl [Flomax 0.4mg 0.8 mg PO HS 04/04/18 11/18/19 History capsule] raNITIdine HCL [Ranitidine HCl] 150 mg PO BID 04/04/18 11/18/19 History furosemide 40 mg tablet 40 mg PO DAILY 11/14/19 11/18/19 History Aspirin [Aspir-Low] 81 mg PO DAILY 11/18/19 11/18/19 History Sulfamethoxazole/Trimethoprim 1 each PO BID 9 Days #18 tab 11/19/19 Rx [Bactrim DS tablet] cephALEXin [Keflex 500mg Cap] 500 mg PO BID 9 Days #18 cap 11/19/19 Rx Prescriptions/Medication Reconciliation: New Sulfamethoxazole/Trimethoprim [Bactrim DS tablet] 1 each PO BID 9 Days #18 tab cephALEXin [Keflex 500mg Cap] 500 mg PO BID 9 Days #18 cap Continued carvedilol 25 mg tablet 25 mg PO BID 30 Days #60 fluticasone propionate 50 mcg/actuation nasal spray,suspension 1 spr INTRANASAL HS PRN 60 Days #16 PRN Reason: Congestion furosemide 40 mg tablet 40 mg PO DAILY raNITIdine HCL [Ranitidine HCl] 150 mg PO BID Aspirin [Aspir-Low] 81 mg PO DAILY Tamsulosin HCl [Flomax 0.4mg capsule] 0.8 mg PO HS - Problem Reconciliation Problems Reviewed?: Yes
== END | disposition home or self-care (01) ==
LOC: 2ND
PROVIDERS: ADMIT Internal Medicine Adolescent Medicine; ATTEND Internal Medicine Adolescent Medicine
CPT/HCPCS: 80048; 80053; 83735; 85025; 87040; G0378; J0692; J3370

== ENCOUNTER → 2019-12-18 15:39 | Outpatient (CLI) | payer MEDICARE, OTHER, SELFPAY ==
[2019-12-18 16:00] LABS: Basophils # 0.3 K/mm3 (0-0.2); Basophils % 2.2 % (0.1-2.0); Eosinophils # 0.6 K/mm3 (0.0-0.4); Eosinophils % 4.2 % (0.1-12.0); Hematocrit 39.2 % (42.0-52.0); Hemoglobin 12.3 g/dL (14.1-18.0); Lymphocytes # 1.7 K/mm3 (0.7-4.5); Lymphocytes % 12.7 % (10-50); Mean Corpuscular HGB Conc 31.3 g/dL (31.8-35.4); Mean Corpuscular Hemoglobin 29.2 pg (27.0-31.2); Mean Corpuscular Volume 93.2 fl (80-94); Mean Platelet Volume 7.9 fl (7.4-10.4); Monocytes # 0.9 K/mm3 (0.1-1.0); Monocytes % 6.8 % (1.7-9.3); Neutrophils # 10.1 K/mm3 (1.8-7.8); Neutrophils % 74.1 % (37.0-80.0); Platelet Count 476 K/mm3 (142-424); Red Cell Distribution Width 13.7 % (11.5-17.5); White Blood Count 13.7 K/mm3 (4.8-10.8)
== END ==
PROVIDERS: Visit Provider Internal Medicine Adolescent Medicine
DX: L03.116 Cellulitis of left lower limb (principal); L03.115 Cellulitis of right lower limb; I89.0 Lymphedema, not elsewhere classified
CPT/HCPCS: 85025

== ENCOUNTER 2020-01-16 14:44 | Observation (INO) | payer MEDICARE, OTHER, SELFPAY ==
[2020-01-16] VITALS (10 sets, daily range): BP systolic 123–192; BP diastolic 61–104; PULSE 100–130; RESP 18–32; TEMP 36.8–40; O2SAT 65–98; BMI 45.6; BMI 43.0
--- NOTE | 2020-01-16 14:56 | HMH.EDGENADL ---
ED Disposition Clinical Impression: Cellulitis of right leg Disposition: Admitted as Observation Condition on Discharge: Fair - Critical Care Critical Care Time: No Attestation: On 01/16/20, the high probability of a clinically significant, sudden or life threatening deterioration of the following system(s) required my full and direct attention, intervention and personal management. The time I documented below is in addition to time spent performing reported procedures but includes the following listed in this critical care notation. Medical Decision Making - Medical Records Medical records reviewed: Yes: I reviewed the patient's medical records. - Real Inquiry Pt receiving controlled substance: No Vital Signs: 01/16/20 14:56 01/16/20 16:09 01/16/20 16:35 Temperature 98.9 F 98.2 F Temperature Source Oral Pulse Rate 100 H Pulse Rate [Left Radial] 105 H 105 H Respiratory Rate 18 20 20 Blood Pressure 125/87 Blood Pressure [Left Arm] 133/70 130/62 Blood Pressure Mean [Left Arm] 91 84 Blood Pressure Source [Left Arm] Automatic Cuff Automatic Cuff Blood Pressure Position [Left Arm] Sitting Sitting 02 Sat by Pulse Oximetry 98 95 Oxygen Delivery Method Room Air Room Air 01/16/20 17:08 Temperature 98.2 F Temperature Source Oral Pulse Rate Pulse Rate [Left Radial] 109 H Respiratory Rate 18 Blood Pressure Blood Pressure [Left Arm] 144/81 H Blood Pressure Mean [Left Arm] 102 Blood Pressure Source [Left Arm] Automatic Cuff Blood Pressure Position [Left Arm] Supine 02 Sat by Pulse Oximetry 97 Oxygen Delivery Method Room Air - Lab Data Lab results reviewed: Yes: I reviewed the patient's lab results. Lab Results 01/16/20 15:00: WBC 13.2 H, RBC 4.04 L, Hgb 11.6 L, Hct 36.8 L, MCV 91.0, MCH 28.8, MCHC 31.6 L, RDW 14.7, Plt Count 503 H, MPV 6.8 L, Neut % (Auto) 80.3 H, Lymph % (Auto) 8.4 L, B[place] % (Auto) 6.0, Eos % (Auto) 3.7, Baso % (Auto) 1.6, Neut # (Auto) 10.6 H, Lymph # (Auto) 1.1, Bland # (Auto) 0.8, Eos # (Auto) 0.5 H, Baso # (Auto) 0.2 01/16/20 15:00: Sodium 135 L, Potassium 4.2, Chloride 105, Carbon Dioxide 22, Anion Gap 12.2, BUN 25 H, Creatinine 1.40 H, Estimated Creat Clear 45, Estimated GFR 50 L, Est GFR ( Amer) 60, Glucose 115 H, Calcium 8.3 L, Total Bilirubin 0.6, AST 31, ALT 27, Alkaline Phosphatase 99, Total Protein 8.2, Albumin 3.9, Globulin 4.3 H, Albumin/Globulin Ratio 0.9 L 01/16/20 15:00: Lactate 1.2 Result diagrams: 01/16/20 15:00 01/16/20 15:00 Orders (Tests/Meds): ED MEDICATIONS Generic Name Dose Route Start Last Admin Trade Name Freq PRN Reason Stop Dose Admin Acetaminophen 650 mg 01/16/20 16:49 Acetaminophen 325mg Tab PO 02/15/20 16:48 Q4HP PRN As Needed for Fever or Pain Aspirin 81 mg 01/17/20 09:00 Aspirin 81mg Enteric Coated Tablet PO 02/16/20 08:59 DAILY [facility] Carvedilol 25 mg 01/16/20 21:00 Coreg 25mg Tablet PO 02/15/20 20:59 BID [facility] Furosemide 40 mg 01/17/20 09:00 Lasix 40mg Tablet PO 02/16/20 08:59 DAILY [facility] Cefepime HCl 2 gm/ Sodium 100 mls @ 100 mls/hr 01/17/20 04:15 Chloride IV 01/30/20 16:14 Q12H [facility] Protocol Vancomycin HCl 2,000 mg/ 250 mls @ 125 mls/hr 01/17/20 10:30 Sodium Chloride IV 01/30/20 16:29 Q18H [facility] Miscellaneous 1 each 01/16/20 16:49 Vancomycin Consult Request NOTAPPLIC 01/17/20 04:04 CONSULT PHARMACY [facility] Ondansetron HCl 4 mg 01/16/20 16:49 Zofran 4mg/2ml Vial IV 02/15/20 16:48 Q8HP PRN Nausea Tamsulosin HCl 0.8 mg 01/16/20 21:00 Flomax 0.4mg Capsule PO 02/15/20 20:59 HS [facility] Discontinued Medications Generic Name Dose Route Start Last Admin Trade Name Freq PRN Reason Stop Dose Admin Cefepime HCl 2 gm/ Sodium 100 mls @ 100 mls/hr 01/16/20 16:15 01/16/20 16:31 Chloride IV 01/30/20 16:14 100 mls/hr Q12H TAWNYA Administration Protocol Vancomycin HCl 2,000 mg/ 250 mls @ 125 mls/hr
[2020-01-16 15:09] LABS: Basophils # 0.2 K/mm3 (0-0.2); Basophils % 1.6 % (0.1-2.0); Eosinophils # 0.5 K/mm3 (0.0-0.4); Eosinophils % 3.7 % (0.1-12.0); Hematocrit 36.8 % (42.0-52.0); Hemoglobin 11.6 g/dL (14.1-18.0); Lymphocytes # 1.1 K/mm3 (0.7-4.5); Lymphocytes % 8.4 % (10-50); Mean Corpuscular HGB Conc 31.6 g/dL (31.8-35.4); Mean Corpuscular Hemoglobin 28.8 pg (27.0-31.2); Mean Platelet Volume 6.8 fl (7.4-10.4); Monocytes # 0.8 K/mm3 (0.1-1.0); Neutrophils # 10.6 K/mm3 (1.8-7.8); Neutrophils % 80.3 % (37.0-80.0); Platelet Count 503 K/mm3 (142-424); Red Blood Count 4.04 M/mm3 (4.60-6.20); Red Cell Distribution Width 14.7 % (11.5-17.5); White Blood Count 13.2 K/mm3 (4.8-10.8)
[2020-01-16 15:31] LABS: Chloride 105 mmol/L (98-107); Potassium 4.2 mmoL/L (3.5-5.1); Sodium 135 mmol/L (136-145)
[2020-01-16 15:34] LABS: Alanine Aminotransferase 27 U/L (12-78); Albumin Level 3.9 g/dl (3.5-5.0); Albumin/Globulin Ratio 0.9 (1.1-1.8); Alkaline Phosphatase 99 U/L (38-126); Anion Gap 12.2 mEq/L (5-15); Aspartate Amino Transferase 31 U/L (17-59); Bilirubin,Total 0.6 mg/dl (0.2-1.3); Blood Urea Nitrogen 25 mg/dl (9-20); Calcium 8.3 mg/dl (8.4-10.2); Carbon Dioxide 22 mmol/L (22.0-30.0); Creatinine Clearance Estimated 45 mL/min (50-200); Estimated Glomerular Filt Rate 50 ml/min (>60); GFR (African American) 60 ML/MIN (>60); Globulin 4.3 g/dL (1.3-3.2); Glucose 115 mg/dl (74-100); Total Protein,Serum 8.2 g/dl (6.3-8.2)
[2020-01-16 15:35] LABS: Lactic Acid 1.2 mmol/L (0.7-2.1)
--- NOTE | 2020-01-16 16:00 | PC.NURSE ---
speaking to dr Montana
--- NOTE | 2020-01-16 16:00 | PC.NURSE ---
MAKSIM GILL speaking with Dr. Montana
--- NOTE | 2020-01-16 16:07 | PC.NURSE ---
contacted smokehouse worker for bed assignment, waiting instructional technologist back
--- NOTE | 2020-01-16 16:07 | PC.NURSE ---
Pharmacy notified of vanc dosing
--- NOTE | 2020-01-16 16:11 | PC.NURSE ---
Notified registration of pt admission
--- NOTE | 2020-01-16 16:24 | HMH.PHACONS ---
- Pharmacy Consult Date: 01/16/20 Time: 16:24 Referring provider: DR. MATIAS Reason for Consult:: VANCOMYCIN DOSING Allergies and ADEs:: Allergies Allergy/AdvReac Type Severity Reaction Status Date / Time Antihistamines - Alkylamine Allergy Mild MADE SKIN Verified 01/16/20 15:20 [ANTIHISTAMINES - ALKYLAMINE] FEEL LIKE ON FIRE NSAIDS (Non-Steroidal AdvReac Severe kidney Verified 01/16/20 15:20 Anti-Inflamma failure Home Medications:: Home Medications Medication Instructions Recorded Confirmed Type carvedilol 25 mg tablet 25 mg PO BID 30 Days #60 01/17/18 01/16/20 History fluticasone propionate 50 1 spr INTRANASAL HS PRN 60 Days #16 01/17/18 01/16/20 History mcg/actuation nasal spray,suspension Tamsulosin HCl [Flomax 0.4mg 0.8 mg PO HS 04/04/18 01/16/20 History capsule] furosemide 40 mg tablet 40 mg PO DAILY 11/14/19 01/16/20 History Aspirin [Aspir-Low] 81 mg PO DAILY 11/18/19 01/16/20 History Height: 1.73 m Weight: 136.078 kg Laboratory Results:: Laboratory Results - last 24 hr 01/16/20 15:00: WBC 13.2 H, RBC 4.04 L, Hgb 11.6 L, Hct 36.8 L, MCV 91.0, MCH 28.8, MCHC 31.6 L, RDW 14.7, Plt Count 503 H, MPV 6.8 L, Neut % (Auto) 80.3 H, Lymph % (Auto) 8.4 L, [place] % (Auto) 6.0, Eos % (Auto) 3.7, Baso % (Auto) 1.6, Neut # (Auto) 10.6 H, Lymph # (Auto) 1.1, [place] # (Auto) 0.8, Eos # (Auto) 0.5 H, Baso # (Auto) 0.2 01/16/20 15:00: Sodium 135 L, Potassium 4.2, Chloride 105, Carbon Dioxide 22, Anion Gap 12.2, BUN 25 H, Creatinine 1.40 H, Estimated Creat Clear 45, Estimated GFR 50 L, Est GFR ( Amer) 60, Glucose 115 H, Calcium 8.3 L, Total Bilirubin 0.6, AST 31, ALT 27, Alkaline Phosphatase 99, Total Protein 8.2, Albumin 3.9, Globulin 4.3 H, Albumin/Globulin Ratio 0.9 L 01/16/20 15:00: Lactate 1.2 Medical History: Reports:: BPH, Hypertension, Peripheral Artery Disease Denies:: Cancer, Diabetes Mellitus Type 1, Diabetes Mellitus Type 2, MRSA Assessment and Plan - Assessment and plan all Dx Assessment and Plan for all problems:: BASED ON PATIENT FACTORS, RECOMMEND INITIATING VANCOMYCIN AT 2,000MG IV EVERY 18 HOURS. PHARMACY WILL MONITOR AND ADJUST DOSE APPROPRIATE. -ADITYA MONTEZ, MARTINEZD
--- NOTE | 2020-01-16 19:18 | PC.NURSE ---
report given to cintia
--- NOTE | 2020-01-16 20:04 | PC.NURSE ---
THIS RN PHONED PHARMACY AND SPOKE WITH DIMA MOE IN REGARDS TO ADMINISTERING PATIENT'S VANCOMYCIN SINCE IT HAS BEEN DISCONTINUED. DIMA COPPOLA INSTRUCTED THIS RN TO PHONE ED DOCTOR FOR CLARIFICATION. THIS RN PHONED ED, PER DR. ARABELLA BRADSHAW TO ADMINISTER VANCOMYCIN. THIS RN TOOK PHOTOS OF PATIENT'S LEG AND PLACED IN CHART.
--- NOTE | 2020-01-16 20:46 | ECG_ITS ---
APPROVED REPORT Exam: Resting ECG HR:125 bpm ECG Measurements Heart Rate 125 AXES QRSd 78 QRS -35 QT 284 T 55 QTc 409 <Conclusion> Sinus tachycardia Left axis deviation Low voltage QRS Previously noted anteroseptal changes Abnormal ECG Electronically signed by : Gasper Montana, 01/17/2020 08:26:47
[2020-01-16 21:07] LABS: ABG Base Excess -9.8 mmol/L (-2.4-2.3); ABG HCO3 15.6 mmhg (22.0-26.0); ABG Oxygen Saturation 99 % (90-100); ABG PCO2 28.2 mmhg (35.0-45.0); ABG PH 7.36 mmol/L (7.35-7.45); ABG PO2 179.6 mmhg (80-100); ABG TCO2 16.5 mmhg (23-27)
[2020-01-16 21:08] LABS: Allen's Test Y; Oxygen 100 %; Source R/R
--- NOTE | 2020-01-16 21:10 | HMH.RR ---
Acute Rapid Response Note - Subjective Date Responded: 01/16/20 Time Responded: 21:00 - Objective Findings: Vital Signs - Last 4 Hours Temperature 99.2 F 01/16/20 20:26 Temperature Source Oral 01/16/20 20:26 Pulse Rate 106 H 01/16/20 20:00 Respiratory Rate 18 01/16/20 20:00 Blood Pressure 153/75 H 01/16/20 20:00 Blood Pressure Mean 101 01/16/20 20:00 Blood Pressure Source Automatic Cuff 01/16/20 20:00 Blood Pressure Position Supine 01/16/20 20:00 02 Sat by Pulse Oximetry 97 01/16/20 20:00 Oxygen Delivery Method 01/16/20 20:00 Lab Results for Past 12 Hours 01/16/20 21:04: Specimen Source R/r, O2 % 100, ABG pH 7.36, ABG pCO2 28.2 L, ABG pO2 179.6 H, ABG HCO3 15.6 L, ABG Total CO2 16.5 L, ABG O2 Saturation 99, ABG Base Excess -9.8 L, Pablo Test Y 01/16/20 15:00: Lactate 1.2 01/16/20 15:00: Sodium 135 L, Potassium 4.2, Chloride 105, Carbon Dioxide 22, Anion Gap 12.2, BUN 25 H, Creatinine 1.40 H, Estimated Creat Clear 45, Estimated GFR 50 L, Est GFR ( Amer) 60, Glucose 115 H, Calcium 8.3 L, Total Bilirubin 0.6, AST 31, ALT 27, Alkaline Phosphatase 99, Total Protein 8.2, Albumin 3.9, Globulin 4.3 H, Albumin/Globulin Ratio 0.9 L 01/16/20 15:00: WBC 13.2 H, RBC 4.04 L, Hgb 11.6 L, Hct 36.8 L, MCV 91.0, MCH 28.8, MCHC 31.6 L, RDW 14.7, Plt Count 503 H, MPV 6.8 L, Neut % (Auto) 80.3 H, Lymph % (Auto) 8.4 L, [place] % (Auto) 6.0, Eos % (Auto) 3.7, Baso % (Auto) 1.6, Neut # (Auto) 10.6 H, Lymph # (Auto) 1.1, [place] # (Auto) 0.8, Eos # (Auto) 0.5 H, Baso # (Auto) 0.2 called sec to change in mental status and inc hr with temp rectal 104 - pt with episode of vomiting - he reported felt better now and no chest pain - - ECG Data Tracing #1 Arrhythmias present: wandering atrial pacemaker Ischemic changes: non-specific ST-T wave changes Rapid Response Exam - General General appearance: alert, in no apparent distress, obese - Head Head exam: atraumatic - Eye Eye exam: Present: PERRL, EOMI - ENT ENT exam: Present: mucous membranes dry - Neck Neck exam: Present: trachea midline - Respiratory Respiratory exam: Present: other (dec bs bilat ) - Cardiovascular Cardiovascular exam: Present: tachycardia, systolic murmur - Abdominal Exam Abdominal exam: Present: soft. Absent: tenderness - Extremities Exam Extremities exam: Present: other (chronic changes with pulse ) - Neurological Exam Neurological exam: Present: alert, CN II-XII intact - Psychiatric Psychiatric exam: Present: normal affect - Skin Skin exam: Present: other (reddness to lower ext ) RR Procedures/Assess/Plan (1) Sepsis Current Visit: Yes Status: Acute Qualifiers: Sepsis type: sepsis due to unspecified organism Sepsis acute organ dysfunction status: unspecified Qualified Code(s): A41.9 - Sepsis, unspecified organism - Assessment and plan all Dx Assessment and Plan for all problems:: will do labs and ivf and discuss with pcp
--- NOTE | 2020-01-16 21:26 | XR_ITS ---
PROCEDURE: XR CHEST PORTABLE CLINICAL HISTORY: soa Shortness of air, severe shortness of breath COMPARISON: CXR CHEST(2 VIEWS-NOT PORTABLE) from 06/15/2016 CXR CHEST(2 VIEWS-NOT PORTABLE) from 07/29/2016 FINDINGS: The cardiomediastinal silhouette and pulmonary vascularity are within normal limits. There is a rounded density overlying the lower aspect of the heart the may be due to overlying monitoring device. Increased density is present in the left mid and lower lung zone which may be due to underlying pneumonia. Mixed lucent areas and increased density is noted over the lower neck centrally and on the left and may be due to artifact from something upon the patient. Please correlate clinically. IMPRESSION: Left lower lobe pneumonia Dictated by: Pablo Berger MD 01/16/2020 22:14 Electronically signed by Pablo Berger MD in [place] 01/16/2020 22:14
[2020-01-16 21:34] LABS: Basophils # 0.1 K/mm3 (0-0.2); Basophils % 0.8 % (0.1-2.0); Eosinophils # 0.2 K/mm3 (0.0-0.4); Eosinophils % 1.9 % (0.1-12.0); Hematocrit 39.1 % (42.0-52.0); Hemoglobin 12.1 g/dL (14.1-18.0); Lymphocytes # 0.9 K/mm3 (0.7-4.5); Lymphocytes % 8.7 % (10-50); Mean Corpuscular HGB Conc 30.9 g/dL (31.8-35.4); Mean Corpuscular Volume 93.9 fl (80-94); Mean Platelet Volume 6.6 fl (7.4-10.4); Monocytes # 0.3 K/mm3 (0.1-1.0); Monocytes % 2.7 % (1.7-9.3); Neutrophils # 9.3 K/mm3 (1.8-7.8); Neutrophils % 85.9 % (37.0-80.0); Platelet Count 475 K/mm3 (142-424); Red Blood Count 4.17 M/mm3 (4.60-6.20); Red Cell Distribution Width 14.4 % (11.5-17.5); White Blood Count 10.8 K/mm3 (4.8-10.8)
[2020-01-16 21:38] LABS: Chloride 106 mmol/L (98-107); Potassium 4.3 mmoL/L (3.5-5.1); Sodium 134 mmol/L (136-145)
[2020-01-16 21:41] LABS: Alanine Aminotransferase 29 U/L (12-78); Albumin Level 3.6 g/dl (3.5-5.0); Albumin/Globulin Ratio 0.8 (1.1-1.8); Alkaline Phosphatase 109 U/L (38-126); Anion Gap 11.3 mEq/L (5-15); Aspartate Amino Transferase 34 U/L (17-59); Bilirubin,Total 0.8 mg/dl (0.2-1.3); Blood Urea Nitrogen 22 mg/dl (9-20); Carbon Dioxide 21 mmol/L (22.0-30.0); Creatinine Clearance Estimated 45 mL/min (50-200); Estimated Glomerular Filt Rate 50 ml/min (>60); GFR (African American) 60 ML/MIN (>60); Globulin 4.3 g/dL (1.3-3.2); Total Protein,Serum 7.9 g/dl (6.3-8.2)
[2020-01-16 21:42] LABS: Calcium 7.9 mg/dl (8.4-10.2); Glucose 126 mg/dl (74-100); Lactic Acid 1.3 mmol/L (0.7-2.1)
[2020-01-16 21:45] LABS: MANUAL DIFFERENTIAL MANUAL DIFFERENTIAL (MANUAL DIFF)
[2020-01-16 22:13] LABS: Troponin I 0.05 ng/ml (0.00-0.034)
[2020-01-16 22:15] LABS: Lymphocytes % 16 % (10-50); Monocytes % 4 % (2-9); Neutrophils % 80 % (42-76); Platelet Estimate Slight Increase; RBC Morphology Normal; Total Cells Counted 100
[2020-01-17] VITALS (7 sets, daily range): BP systolic 112–153; BP diastolic 69–73; PULSE 73–107; RESP 20–22; TEMP 36.2–38.1; O2SAT 96–100; BMI 42.1; BMI 42.0
--- NOTE | 2020-01-17 00:05 | PC.NURSE ---
Addendum entered by Adina Peters RN 01/17/20 02:24: dr. rendon ordered to stop ns bolus due to no hypotension and to run ns at 150ml/hr Original Note: 2024 patient rang call posada to inform staff that he started chilling all of a sudden and was having a hard time catching his breath. nurses tech reported to room, temperature repeated and had increased up to 99.2 from 98.4 at 2000. rn reported to room. 650 mg tylenol given po patient color [place], and red. patient breathing found to be labored at 30 bpm, sats on room air 82% and dropping, pulse increased up to 128 from 106 with 2000 vital signs. o2 sats dropped to 65 percent by the time oxygen could be placed. nc was placed and o2 sats remained below 90%, resp rate remained 30. non-rebreather placed and respiratory therapy called. o2 sats returned to 94 on non rebreather, patients color returned to pink and heart began to decrease to 115. dr. rendon paged to notifiy of sudden change in status. patient then began projectile vomiting into non rebreather. color again went reddish purple, o2 sats remained in the 90s, respiratory rate increased again to 35. rapid response red called. ekg obtained. ns bolus started and labs drawn. dr. kerns obtained abgs. received return call from dr. rendon and informed of status change, new orders received.
--- NOTE | 2020-01-17 00:18 | PC.NURSE ---
2119 dr. rendon notified of abg results per his request. patient rr down to 26, sats 100 on nonrebreather, hr 114, blood pressure 123/72. color pink and temperature now down to 103.2 rectally. will continue to monitor.
--- NOTE | 2020-01-17 00:19 | PC.NURSE ---
2100 rectal temperature taken, now 104 degrees.
--- NOTE | 2020-01-17 01:41 | PC.NURSE ---
patient resting, c/o being cold. rectal temp 1.4. 650 mg tylenol given po. resp rate remains 24, sats 100% on 2 l nc. o2 removed. will continue to monitor.
--- NOTE | 2020-01-17 01:43 | PC.NURSE ---
2200 dr. rendon was notified of severe sepsis trigger with heart rate, temp and resp rate with organ disfuction of respiratory distress. ivf ordered at 150ml/hr, vancomycin to stop, does not want to start any other abx at this time. will continue to monitor.
--- NOTE | 2020-01-17 07:00 | XR_ITS ---
PROCEDURE: XR ANKLE LT MIN 3V CLINICAL INDICATION: Cellulitis Cyst COMPARISON: [id number] ANKLE-LT-3 VIEWS from 09/20/2014 ANKCMLT XR ankle LT min 3V from 04/05/2018 XR ANKLE RT MIN 3V from 06/27/2019 FINDINGS: There is mild soft tissue swelling. No fracture or dislocation. No bony or joint abnormalities. There is a small calcaneal spur. Degenerative changes are present in the midfoot. IMPRESSION: Soft tissue swelling with degenerative change Dictated by: Pablo Berger MD 01/17/2020 09:03 Electronically signed by Pablo Berger MD in [place] 01/17/2020 09:03
--- NOTE | 2020-01-17 07:00 | XR_ITS ---
PROCEDURE: XR ANKLE RT MIN 3V CLINICAL INDICATION: Cellulitis Pain and swelling with redness COMPARISON: ANKL3 ANKLE-LT-3 VIEWS from 09/20/2014 ANKCMLT XR ankle LT min 3V from 04/05/2018 XR ANKLE RT MIN 3V from 06/27/2019 FINDINGS: No fracture or dislocation. There is some mild generalized soft tissue swelling. A well-circumscribed calcific density is present at the tip of the medial malleolus and may be due to an old fracture or degenerative calcification. Small focus of calcification is present at the lateral malleolar region in the soft tissues. There is generalized vascular calcification. Talar dome has an unremarkable appearance and the ankle mortise is preserved. IMPRESSION: Soft tissue swelling with chronic changes Dictated by: Pablo Berger MD 01/17/2020 09:02 Electronically signed by Pablo Berger MD in [place] 01/17/2020 09:02
--- NOTE | 2020-01-17 07:00 | XR_ITS ---
PROCEDURE: XR FOOT LT MIN 3V CLINICAL INDICATION: Cellulitis Pain and swelling with redness COMPARISON: [id number] XR foot RT min 3V from 04/05/2018 [id number] XR foot LT min 3V from 04/05/2018 XR FOOT RT MIN 3V from 06/27/2019 XR FOOT LT MIN 3V from 06/27/2019 FINDINGS: No fracture or dislocation. No lytic or blastic change. There is normal mineralization. No bony destructive process evident. There are mild osteoarthritic changes of the midfoot. There is a small calcaneal spur Other findings:None. IMPRESSION: Degenerative changes, no acute finding Dictated by: Pablo Berger MD 01/17/2020 09:01 Electronically signed by Pablo Berger MD in [place] 01/17/2020 09:01
--- NOTE | 2020-01-17 07:00 | XR_ITS ---
PROCEDURE: XR FOOT RT MIN 3V CLINICAL INDICATION: Cellulitis Pain and swelling COMPARISON: No exams were available for comparison FINDINGS: Osteoarthritic changes are present at the 1st metatarsophalangeal joint as well as the talonavicular and navicular cuneiform and metatarsal tarsal region. There is some soft tissue swelling dorsally at the metatarsal area. There is mild diffuse vascular calcification. No bony destructive process or soft tissue gas. . IMPRESSION: Degenerative changes Soft tissue swelling Dictated by: Pablo Berger MD 01/17/2020 08:58 Electronically signed by Pablo Berger MD in [place] 01/17/2020 08:58
--- NOTE | 2020-01-17 07:23 | HMH.HP ---
*Admission Date: 01/16/20 *Chief complaint: Lower extremity cellulitis *History of present illness: 74-year-old white male with long history of recurrent lymphedema and cellulitis, especially of the right leg but because of his worsening lymphedema and obesity he is developed lymphadenitis/lymphedema and cellulitis of both legs. He has been treated with home health services with aggressive dressing changes, Unna boot rotation and cleansing which has been good and that it improved his situation with hygiene as previously was unable to reach his feet to wash them. Home health noticed that he had copious amounts of foul-smelling but clear drainage yesterday and advised him to come to the emergency department. In the ER he was found to have a fever, evidence of warm and red cellulitic areas in both lower extremities and was admitted to the hospital. In consultation with the ER physician I recommended starting vancomycin and cefepime which had done a good job for him before, and he was tolerating treatments well until he began to have a dose of vancomycin on the floor last night. Began to have shaking, an episode of vomiting, and an episode of elevated blood pressure. Nursing called a rapid response red because of purple color, tachycardia and shaking. He was temporarily hypoxic but responded to oxygen. He never lost consciousness or had a change in his consciousness. Symptoms resolved very quickly with the cessation of vancomycin. Troponin levels were minimally elevated but very nonspecific. This morning he feels much better and has absolutely no complaints except for some leg pain. [facility] History I have reviewed the patient's past medical history: Yes Medical History: Reports:: BPH, Hypertension, Peripheral Artery Disease Denies:: Cancer, Diabetes Mellitus Type 1, Diabetes Mellitus Type 2, MRSA *Have you ever received a pneumonia vaccine?: Yes *Have you received a flu vaccine this season?: Yes Other Medical History: Reports: Arthritis, Cataracts Laterality Cases: Left: Total Hip Replacement Other Surgeries: Yes: Other Amputation: No Fractures: No - *Social History Educational Level: Attended College Smoking Status: Former smoker Tobacco Type: cigars # Packs/Day (cigarettes): 1 #Yrs smoked (if former smoker): 0 Alcohol Intake: never Alcohol Intake Frequency:: other Substance Use Type: denies use *Occupational Status:: retired Housing: apartment Household Members: none *Travel in the last 8 weeks: None Family Hx:: Cancer, Heart Attack, Hypertension Review of Systems - Review of Systems Review of systems:: pertinent systems reviewed and negative unless documented below Meds Home Medications Medication Instructions Recorded Confirmed Type carvedilol 25 mg tablet 25 mg PO BID 30 Days #60 01/17/18 01/16/20 History fluticasone propionate 50 1 spr INTRANASAL HS PRN 60 Days #16 01/17/18 01/16/20 History mcg/actuation nasal spray,suspension Tamsulosin HCl [Flomax 0.4mg 0.8 mg PO HS 04/04/18 01/16/20 History capsule] furosemide 40 mg tablet 40 mg PO QODHS 11/14/19 01/16/20 History Aspirin [Aspir-Low] 81 mg PO DAILY 11/18/19 01/16/20 History Allergies Allergy/AdvReac Type Severity Reaction Status Date / Time Antihistamines - Alkylamine Allergy Mild MADE SKIN Verified 01/16/20 15:20 [ANTIHISTAMINES - ALKYLAMINE] FEEL LIKE ON FIRE NSAIDS (Non-Steroidal AdvReac Severe kidney Verified 01/16/20 15:20 Anti-Inflamma failure Exam Vital signs and Labs for Last 24 Hours: Temp Pulse Resp BP Pulse Ox 100.4 F H 73 20 130/72 96 01/17/20 01:40 01/17/20 04:00 01/17/20 04:00 01/17/20 04:00 01/17/20 04:00 Laboratory Results - last 24 hr 01/16/20 15:00: WBC 13.2 H, RBC 4.04 L, Hgb 11.6 L, Hct 36.8 L, MCV 91.0, MCH 28.8, MCHC 31.6 L, RDW 14.7, Plt Count 503 H, MPV 6.8 L, Neut % (Auto) 80.3 H, Lymph % (Auto) 8.4 L, Spencer % (Auto) 6.0, Eos % (Auto) 3.7, Baso % (Auto) 1.6, Neut # (Auto) 10.6 H,
--- NOTE | 2020-01-17 08:05 | HMH.PHAVTE ---
[facility] Pharmacy VTE Monitoring - Patient Demographics Admission date: 01/16/20 Report Date: 01/17/20 Time: 08:05 Allergies/Adverse Reactions: Patient Allergies Antihistamines - Alkylamine [ANTIHISTAMINES - ALKYLAMINE] Allergy (Mild, Verified 01/16/20 15:20) MADE SKIN FEEL LIKE ON FIRE NSAIDS (Non-Steroidal Anti-Inflamma Adverse Reaction (Severe, Verified 01/16/20 15:20) kidney failure Height: 1.73 m Weight: 126.184 kg Patient Problems: Current Active Problems Cellulitis of right leg (Acute) Sepsis (Acute) Morbid obesity (Acute) Stage III chronic kidney disease (Acute) - VTE Risk Labs: VTE Related Lab Results Hgb 12.1 g/dL (14.1-18.0) L 01/16/20 21:20 Hct 39.1 % (42.0-52.0) L 01/16/20 21:20 Plt Count 475 K/mm3 (142-424) H 01/16/20 21:20 BUN 22 mg/dl (9-20) H 01/16/20 21:20 Creatinine 1.40 mg/dl (0.66-1.25) H 01/16/20 21:20 Estimated Creat Clear 45 mL/min (50-200) 01/16/20 21:20 VTE Score: 4 VTE Risk Level: Low Risk - Prophylaxis VTE Prophylaxis Ordered?: Yes Types of VTE Prophylaxis: TEDS Knee High Location of Applied Device: Bilateral Lower Extremeties - VTE Diagnosis Confirmed Treatment or plan recommended: Continue Current Treatment
[2020-01-17 08:24] LABS: C-Reactive Protein 268.8 mg/L (0-4)
[2020-01-17 08:37] LABS: Erythrocyte Sedimentation Rate 123 mm/hr (0-20)
--- NOTE | 2020-01-17 08:54 | HMH.ORTHOCON ---
*Admission Date: 01/16/20 *Reason for consult:: RLE Cellulitis *History of present illness: Mr. Mckeon is a well-known patient to podiatry, wound care clinic in the lymphedema clinic. Patient has a history of bilateral lower extremity lymphedema. He has seen vascular surgeon Dr. Velazquez and Dr. Berry in the past. Patient is currently getting home health care lymphedema therapy consisting of Unna boots. He states that he has trouble washing his legs and is unable to change his own dressings and wraps. He reports pain to the anterior right ankle and overall soreness to the legs . Patient also complains of pain with the toenails getting elongated and is requesting we trim them today. Per PCP: 74-year-old white male with long history of recurrent lymphedema and cellulitis, especially of the right leg but because of his worsening lymphedema and obesity he is developed lymphadenitis/lymphedema and cellulitis of both legs. He has been treated with home health services with aggressive dressing changes, Unna boot rotation and cleansing which has been good and that it improved his situation with hygiene as previously was unable to reach his feet to wash them. Home health noticed that he had copious amounts of foul-smelling but clear drainage yesterday and advised him to come to the emergency department. In the ER he was found to have a fever, evidence of warm and red cellulitic areas in both lower extremities and was admitted to the hospital. In consultation with the ER physician I recommended starting vancomycin and cefepime which had done a good job for him before, and he was tolerating treatments well until he began to have a dose of vancomycin on the floor last night. Began to have shaking, an episode of vomiting, and an episode of elevated blood pressure. Nursing called a rapid response red because of purple color, tachycardia and shaking. He was temporarily hypoxic but responded to oxygen. He never lost consciousness or had a change in his consciousness. Symptoms resolved very quickly with the cessation of vancomycin. Troponin levels were minimally elevated but very nonspecific. This morning he feels much better and has absolutely no complaints except for some leg pain. Review of Systems - Review of Systems Review of systems:: pertinent systems reviewed and negative unless documented below - Constitutional Reports fatigue, Denies chills - Eyes Denies blurry vision - ENT Denies difficulty swallowing - *Cardiovascular Reports generalized swelling, Denies chest pain - *Respiratory Denies shortness of breath - *Gastrointestinal Denies abdominal pain, Denies nausea, Denies vomiting - *Genitourinary Denies difficulty urinating - *Musculoskeletal Reports joint swelling, Reports limited joint movement, Reports stiffness, Reports tingling - Integumentary/Breasts Reports hair loss, Reports nail changes, Reports dry skin, Reports redness - *Neurologic Reports tingling/numbness/burning sensations - Psychiatric Denies behavioral changes - Endocrine Denies cold intolerance - Hematologic/Lymphatic Denies easy bleeding - Allergic/Immunologic Reports GI upset with certain foods [facility] History I have reviewed the patient's past medical history: Yes Medical History: Reports:: BPH, Hypertension, Peripheral Artery Disease Denies:: Cancer, Diabetes Mellitus Type 1, Diabetes Mellitus Type 2, MRSA *Have you ever received a pneumonia vaccine?: Yes *Have you received a flu vaccine this season?: Yes Other Medical History: Reports: Arthritis, Cataracts Laterality Cases: Left: Total Hip Replacement Other Surgeries: Yes: Other Amputation: No Fractures: No - *Social History Educational Level: Attended College Smoking Status: Former smoker Tobacco Type: cigars # Packs/Day (cigarettes): 1 #Yrs smoked (if former smoker): 0 Alcohol Intake: never Alcohol Intake Frequency:: other Substance Use Type: denies use *Occupational Status:: retired
--- NOTE | 2020-01-17 09:59 | PC.NURSE ---
THIS RN PHONED DR. GONZALEZ'S OFFICE, SPOKE WITH ADELIA BENNETT NP. ORDERS RECEIVED FOR PATIENT TO BE ON CARDIAC DIET. THIS RN PHONED DIETARY AND ORDERED FOOD.
--- NOTE | 2020-01-17 10:20 | HMH.PTEV ---
Physical Therapy Evaluation Rehab PT IP Evaluation Start: 01/17/20 07:22 Freq: ONCE Status: Active Protocol: Document 01/17/20 10:15 PWLEONILA (Rec: 01/17/20 10:20 JUAN MIGUEL [id number]) Subjective/History History History This is the initial IP PT evaluation for Riki Vega. Pt is a 74 y/o male admitted to [facility] through ER due to weeping foul smelling legs due to cellulitis. Pt is well known to therapy for wound care and lymphedema care. Pt was receiving HHPT for BLE care and lymphedema care. Subjective Subjective Pt reports no sig c/o Rehab PT IP Eval Objective Appearance Patient Behavior Appropriate,Cooperative Patient Orientation Person,Place,Time Difficulty following instructions none Speech Pattern Clear Ambulation Patient Able to Ambulate Yes Balance Ability to Arise Able, uses arms to help Sitting Balance Steady, safe Standing Balance Steady, wide stance Dynamic Sitting Balance Ability Good Dynamic Standing Balance Ability Fair Transfers Bed Transfer Ability Supervision/Stand by Chair Transfer Ability Supervision/Stand by Sit to Stand Bed Transfer Ability Supervision/Stand by Sit to Stand Chair Transfer Ability Supervision/Stand by Rehab PT IP prob,goals,plan Problems Date of Evaluation: 01/17/20 PT IP Problems Other Other Pt Problem lymphedema and cellulitis Rehab Potential Rehab Potential Innapropriate for Skilled Therapy Discharge Plan PT Discharge Plan Nsg to apply and cahnge unna boots Q72. Pt to dc home once medically stable w/ cont hh for nsg care G -code Required Yes Eval Complexity Eval Charge Codes 88152 - Low Complexity G Codes PT Current Status Other PT/OT Status PT Current Status Modifier CN-At least 100% impaired, limited or restricted PT Goal Status Other PT/OT Status PT Goal Status Modifer CN-At least 100% impaired, limited or restricted PHYSICIAN CERTIFICATION: I certify the specified therapy services for Riki Mckeon are required, authorized, and reviewed every 30 days.
--- NOTE | 2020-01-17 14:57 | SW/DCPLANNER ---
Addendum entered by Libertad Merino 01/18/20 14:29: MADE ROUNDS WITH DR MCDUFFIE THIS MORNING AND HE IS DISCHARGING MR MATHEWS TO HOME AND WANTS HIM TO COME BACK TO THE HOSPITAL OUT PATIENT LYMPHEDEMA CLINIC...PATIENT WILL HAVE A VISIT FROM HIS HOME HEALTH AGENCY ON SAT TO WRAP HIS LEGS WITH UNNA BOOTS AND THEN PATIENT WILL DISCHARGE FROM THEIR SERVICES AND COME TO [facility] OUT PATIENT CLINIC.. I HAVE ASKED FOR THEM TO CALL PATIENT A REMINDER STATING HE FORGET HIS APPT TIMES.. HE IS TO FOLLOW UP WITH DR MCDUFFIE IN THE OFFICE SETTING NEXT WEEK. Original Note: PATIENT ADMITTED TO [facility] WITH A CELLULITIS OF BOTH LEGS BILATERALLY... HE IS CURRENTLY RECEIVING HOME HEALTH SERVICES FROM [facility] AND THE TREATMENT IS UNNA BOOTS. HE WILL BE RETURNING BACK HOME AND HIS HOME HEALTH WILL RESUME POST HOSPITAL STAY... PATIENT MAY REQUIRE IV ANTIBIOTICS AND IF SO IT WILL BE SET UP...DISPOSITION UNCERTAIN...
--- NOTE | 2020-01-17 19:14 | PC.NURSE ---
report given to ford
--- NOTE | 2020-01-17 20:09 | PC.NURSE ---
THIS RN CLEANED BLE WITH NORMAL SALINE, DRIED WITH 4X4. WRAPPED BLE WITH UNNA BOOT AND COVERED WITH COBAN. PATIENT TOLERATED WELL. NO OTHER CONCERNS AT THIS TIME.
--- NOTE | 2020-01-18 03:32 | PC.NURSE ---
A&OX4. TOLERATING ROOM AIR WELL. LUNG SOUNDS BILATERALLY CLEAR. RESPIRATIONS UNLABORED AND REGULAR. PT SOB WITH EXERTION. PT STATES THIS IS NORMAL FOR HIM AT HOME. WHEEZES NOTED DURING EPISODE. ONCE RESTING, HE WAS ABLE TO BREATH NORMAL AND CLEAR. REPORTS RELIEF WITH REST. NO COUGH PRESENT. HEART RATE REGULAR. +3 PITTING EDEMA NOTED TO BLE. UNNA BOOTS IN PLACE. BANDAGES CDI. ON 3AM ROUND, MINIMAL SEEPING PRESENT ON R FOOT. +2 PULSES NOTED THROUGHOUT. ACTIVE BOWEL SOUNDS HEARD IN ALL 4 QUADRANTS. SOFT AND NONTENDER. REPORTS MEDIUM LOOSE BROWN BM. DIRECTOR PRINT EQUAL. URINE CLEAR AND YELLOW WITH A STRONG ODOR. USES ASSIST OF WALKER AND STAFF TO AMBULATE TO AND FROM BATH. TOLERATED WELL. PUPILS BRISK AND REACTIVE TO LIGHT. SPEECH CLEAR AND APPROPRIATE. PT RECEIVED BED BATH AND LINEN CHANGE BY MANAGER SUPPORT SERVICES. NO COMPLAINTS OF PAIN THROUGHOUT SHIFT. VSS. PT RESTING COMFORTABLY IN BED. NO CONCERNS AT THIS TIME.
[2020-01-18 04:00] VITALS: BP 163/78; PULSE 71; RESP 20; TEMP 36.6; O2SAT 97
[2020-01-18 05:28] VITALS: BMI 42.9
--- NOTE | 2020-01-18 05:32 | PC.NURSE ---
RN NOTIFIED OF WEIGHT GAIN
[2020-01-18 06:01] LABS: Basophils # 0.1 K/mm3 (0-0.2); Basophils % 0.5 % (0.1-2.0); Eosinophils # 0.8 K/mm3 (0.0-0.4); Eosinophils % 6.9 % (0.1-12.0); Hematocrit 32.9 % (42.0-52.0); Lymphocytes # 1.3 K/mm3 (0.7-4.5); Lymphocytes % 11.8 % (10-50); Mean Corpuscular HGB Conc 30.3 g/dL (31.8-35.4); Mean Corpuscular Hemoglobin 28.8 pg (27.0-31.2); Mean Corpuscular Volume 95.1 fl (80-94); Mean Platelet Volume 7.3 fl (7.4-10.4); Monocytes # 0.7 K/mm3 (0.1-1.0); Monocytes % 5.9 % (1.7-9.3); Neutrophils # 8.5 K/mm3 (1.8-7.8); Neutrophils % 74.9 % (37.0-80.0); Platelet Count 449 K/mm3 (142-424); Red Blood Count 3.46 M/mm3 (4.60-6.20); Red Cell Distribution Width 14.5 % (11.5-17.5); White Blood Count 11.3 K/mm3 (4.8-10.8)
[2020-01-18 06:03] LABS: Chloride 109 mmol/L (98-107)
[2020-01-18 06:04] LABS: Potassium 4.3 mmoL/L (3.5-5.1); Sodium 136 mmol/L (136-145)
[2020-01-18 06:06] LABS: Alanine Aminotransferase 26 U/L (12-78); Albumin Level 2.9 g/dl (3.5-5.0); Albumin/Globulin Ratio 0.8 (1.1-1.8); Alkaline Phosphatase 81 U/L (38-126); Anion Gap 10.3 mEq/L (5-15); Aspartate Amino Transferase 35 U/L (17-59); Bilirubin,Total 0.4 mg/dl (0.2-1.3); Blood Urea Nitrogen 25 mg/dl (9-20); Carbon Dioxide 21 mmol/L (22.0-30.0); Creatinine Clearance Estimated 53 mL/min (50-200); Estimated Glomerular Filt Rate 59 ml/min (>60); GFR (African American) 72 ML/MIN (>60); Globulin 3.8 g/dL (1.3-3.2); Total Protein,Serum 6.7 g/dl (6.3-8.2)
[2020-01-18 06:07] LABS: Calcium 7.7 mg/dl (8.4-10.2); Glucose 106 mg/dl (74-100)
[2020-01-18 08:00] VITALS: BP 136/68; PULSE 72; RESP 20; TEMP 36.5; O2SAT 97
--- NOTE | 2020-01-18 08:42 | HMH.DCSUM ---
General - General Admission date:: 01/16/20 Discharge date: 01/18/20 HPI HPI: 74-year-old white male with long history of recurrent lymphedema and cellulitis, especially of the right leg but because of his worsening lymphedema and obesity he is developed lymphadenitis/lymphedema and cellulitis of both legs. He has been treated with home health services with aggressive dressing changes, Unna boot rotation and cleansing which has been good and that it improved his situation with hygiene as previously was unable to reach his feet to wash them. Home health noticed that he had copious amounts of foul-smelling but clear drainage yesterday and advised him to come to the emergency department. In the ER he was found to have a fever, evidence of warm and red cellulitic areas in both lower extremities and was admitted to the hospital. In consultation with the ER physician I recommended starting vancomycin and cefepime which had done a good job for him before, and he was tolerating treatments well until he began to have a dose of vancomycin on the floor last night. Began to have shaking, an episode of vomiting, and an episode of elevated blood pressure. Nursing called a rapid response red because of purple color, tachycardia and shaking. He was temporarily hypoxic but responded to oxygen. He never lost consciousness or had a change in his consciousness. Symptoms resolved very quickly with the cessation of vancomycin. Troponin levels were minimally elevated but very nonspecific. This morning he feels much better and has absolutely no complaints except for some leg pain. Hospital Course Hospital Course: 74-year-old gentleman with chronic venous insufficiency and lymphedema in his lower extremities. Admitted for cellulitis and infection in his legs. Inflammatory markers elevated along with febrile on admission. Initiated on broad-spectrum antibiotics consisting of cefepime and clindamycin. Responded well with effervescence of fever and improvement in erythema. Podiatry was consulted during admission with recommendations for lymphedema clinic, Unna boots, and follow-up with vascular surgery to discuss additional options. At this time patient is more or less at baseline. Does have some wheezing this morning however has not had his diuretic and is in supine position with audible wheeze in upper airway. No respiratory distress or oxygen needed during hospitalization. On day of discharge, patient feeling overall better. Given a dose of diuretic IV and a breathing treatment with improvement in his symptoms. Transition to oral antibiotics to complete a total of 10 days. Will complete Levaquin at home dosed renally, 750 mg every other day. Plan for Unna boot change with home health and then discharged from home health and patient wants to pursue seeing lymphedema clinic due to the broader array of therapies they can offer. Patient hemodynamically stable this morning. Denies nausea, vomiting, chest pain. Does have some loose stools secondary to antibiotics. Afebrile. Medically stable for discharge home with close follow-up in the outpatient setting. Objective Vital signs: Temp Pulse Resp BP Pulse Ox 97.9 F 71 20 163/78 H 97 01/18/20 04:00 01/18/20 04:00 01/18/20 04:00 01/18/20 04:00 01/18/20 04:00 Narrative: Patient is pleasant. Talkative. Oriented x3. Supine position on exam this morning No discoloration of face, no scleral icterus or jaundice. ENT exam otherwise clear. Heart rate regular. Lungs are clear. Abdomen soft and nontender. Lower extremities with no erythema beyond edge of Unna boot. Unna boot just placed so they were not removed this morning on exam. Legs nontender. Unna boots not saturated, are clean dry and intact in appearance. Interval improvement Toenails are thickened and onychomycotic. Neurologic exam nonfocal. Results Labs on day of discharge: Labs from last 24 hours
[2020-01-18 09:56] VITALS: PULSE 70; PULSE 71; O2SAT 95
--- NOTE | 2020-01-18 10:34 | HMH.PHAINT ---
MED DISCHARGE-DISCUSSED LEVAQUIN AND FLORAQ WITH PATIENT. DOSING OF MEDICATIONS AND IMPORTANCE OF TAKING.
--- NOTE | 2020-01-18 11:18 | PC.NURSE ---
Pt discharge education reviewed as well as review of new medications. Pt verbalized understanding. IV in LAC DC'd. Pt was taken by wheelchair by nursing staff to daughters car. DC @ [id number].
== END 2020-01-18 11:10 | disposition home or self-care (01) ==
LOC: ER 16:05 → 2ND 18:02
PROVIDERS: Podiatrist; Admitting Provider Internal Medicine Adolescent Medicine; Emergency Provider Emergency Medicine; PCP Internal Medicine Adolescent Medicine; Visit Provider Internal Medicine Adolescent Medicine
DX: L03.116 Cellulitis of left lower limb (principal); L03.115 Cellulitis of right lower limb; I89.0 Lymphedema, not elsewhere classified; I10 Essential (primary) hypertension; Z87.891 Personal history of nicotine dependence; I88.8 Other nonspecific lymphadenitis; N17.9 Acute kidney failure, unspecified; B35.1 Tinea unguium
CPT/HCPCS: 36415; 71045; 73610; 73630; 80053; 82803; 83605; 84484; 85007; 85025; 85651; 86140; 87040; 87070; 87205; 93005; 94640; 94760; 96365; 96367; 97161; 99284; G0378; J2405; J3370

== ENCOUNTER → 2020-02-12 15:55 | Outpatient (CLI) | payer MEDICARE, OTHER, SELFPAY | PROVIDERS: Visit Provider Internal Medicine Adolescent Medicine | DX: L03.115 Cellulitis of right lower limb (principal) | CPT/HCPCS: 87070; 87077; 87186; 87205 ==

== ENCOUNTER → 2020-02-19 07:02 | Outpatient (CLI) | payer MEDICARE, OTHER, SELFPAY ==
[2020-02-19 08:49] LABS: Basophils # 0.1 K/mm3 (0-0.2); Eosinophils # 0.5 K/mm3 (0.0-0.4); Eosinophils % 4.9 % (0.1-12.0); Hematocrit 35.6 % (42.0-52.0); Hemoglobin 11.8 g/dL (14.1-18.0); Lymphocytes # 1.8 K/mm3 (0.7-4.5); Lymphocytes % 18.7 % (10-50); Mean Corpuscular HGB Conc 33.1 g/dL (31.8-35.4); Mean Corpuscular Hemoglobin 30.2 pg (27.0-31.2); Mean Corpuscular Volume 91.4 fl (80-94); Mean Platelet Volume 7.6 fl (7.4-10.4); Monocytes # 0.6 K/mm3 (0.1-1.0); Monocytes % 6.2 % (1.7-9.3); Neutrophils # 6.8 K/mm3 (1.8-7.8); Neutrophils % 69.3 % (37.0-80.0); Platelet Count 526 K/mm3 (142-424); Red Cell Distribution Width 14.6 % (11.5-17.5); White Blood Count 9.9 K/mm3 (4.8-10.8)
[2020-02-19 09:21] LABS: Chloride 107 mmol/L (98-107); Potassium 4.7 mmoL/L (3.5-5.1); Sodium 140 mmol/L (136-145)
[2020-02-19 09:24] LABS: Anion Gap 11.7 mEq/L (5-15); Blood Urea Nitrogen 23 mg/dl (9-20); Carbon Dioxide 26 mmol/L (22.0-30.0); Estimated Glomerular Filt Rate 59 ml/min (>60); GFR (African American) 72 ML/MIN (>60)
[2020-02-19 09:25] LABS: Calcium 8.1 mg/dl (8.4-10.2); Glucose 127 mg/dl (74-100)
== END ==
PROVIDERS: Visit Provider Nurse Practitioner Family
DX: A49.8 Other bacterial infections of unspecified site (principal)
CPT/HCPCS: 36415; 80048; 85025

== ENCOUNTER → 2020-02-27 07:17 | Outpatient (CLI) | payer MEDICARE, OTHER, SELFPAY ==
[2020-02-27 07:54] LABS: Chloride 108 mmol/L (98-107); Sodium 139 mmol/L (136-145)
[2020-02-27 07:55] LABS: Potassium 4.7 mmoL/L (3.5-5.1)
[2020-02-27 07:57] LABS: Alanine Aminotransferase 10 U/L (12-78); Alkaline Phosphatase 88 U/L (38-126); Anion Gap 9.7 mEq/L (5-15); Aspartate Amino Transferase 23 U/L (17-59); Bilirubin,Total 0.6 mg/dl (0.2-1.3); Blood Urea Nitrogen 19 mg/dl (9-20); Carbon Dioxide 26 mmol/L (22.0-30.0); Estimated Glomerular Filt Rate 73 ml/min (>60); GFR (African American) 89 ML/MIN (>60)
[2020-02-27 07:58] LABS: Albumin Level 3.4 g/dl (3.5-5.0); Calcium 8.4 mg/dl (8.4-10.2); Globulin 3.5 g/dL (1.3-3.2); Glucose 103 mg/dl (74-100); Total Protein,Serum 6.9 g/dl (6.3-8.2)
[2020-02-27 08:03] LABS: Hemoglobin A1C 6.3 % (4.0-6.0)
== END ==
PROVIDERS: Visit Provider Internal Medicine Adolescent Medicine
DX: R73.9 Hyperglycemia, unspecified (principal)
CPT/HCPCS: 36415; 80053; 83036

== ENCOUNTER → 2020-03-07 15:47 | Outpatient (CLI) | payer MEDICARE, OTHER, SELFPAY | PROVIDERS: Visit Provider Internal Medicine Adolescent Medicine | DX: I89.0 Lymphedema, not elsewhere classified (principal) | CPT/HCPCS: 87070; 87077; 87186; 87205 ==

== ENCOUNTER 2020-03-14 08:38 | Observation (INO) | payer MEDICARE, OTHER, SELFPAY ==
[2020-03-14] VITALS (15 sets, daily range): BP systolic 113–175; BP diastolic 49–81; PULSE 62–92; RESP 17–20; TEMP 36.6–37.8; O2SAT 96–100; BMI 32.5; BMI 40.2
--- NOTE | 2020-03-14 08:32 | HMH.EDGENADL ---
ED Disposition Clinical Impression: Near syncope, Acute kidney injury Cellulitis, leg Qualifiers: Laterality: unspecified laterality Qualified Code(s): L03.119 - Cellulitis of unspecified part of limb Disposition: Admitted as Observation Condition on Discharge: Fair Referrals: Gasper Montana MD [Primary Care Provider] - - Critical Care Critical Care Time: No Attestation: On , the high probability of a clinically significant, sudden or life threatening deterioration of the following system(s) required my full and direct attention, intervention and personal management. The time I documented below is in addition to time spent performing reported procedures but includes the following listed in this critical care notation. Medical Decision Making - Real Inquiry Pt receiving controlled substance: No Vital Signs: 03/14/20 08:31 03/14/20 08:52 03/14/20 09:01 Temperature 98.1 F Temperature Source Oral Pulse Rate [Orthostatic Lying] 63 Pulse Rate [Orthostatic Sitting] 66 Pulse Rate [Orthostatic Standing] 65 Pulse Rate [Right] 66 64 Respiratory Rate 18 20 Blood Pressure [Orthostatic Lying Right Arm] 127/49 L Blood Pressure [Orthostatic Sitting Right Arm] 114/57 L Blood Pressure [Orthostatic Standing Right Arm] 114/56 L Blood Pressure [Right Arm] 114/56 L 113/54 L Blood Pressure Mean [Right Arm] 75 73 Blood Pressure Source [Right Arm] Automatic Cuff Automatic Cuff Blood Pressure Position [Right Arm] Supine Supine 02 Sat by Pulse Oximetry 99 99 Oxygen Delivery Method Room Air Room Air 03/14/20 09:31 Temperature Temperature Source Pulse Rate [Orthostatic Lying] Pulse Rate [Orthostatic Sitting] Pulse Rate [Orthostatic Standing] Pulse Rate [Right] 62 Respiratory Rate 18 Blood Pressure [Orthostatic Lying Right Arm] Blood Pressure [Orthostatic Sitting Right Arm] Blood Pressure [Orthostatic Standing Right Arm] Blood Pressure [Right Arm] 127/63 Blood Pressure Mean [Right Arm] 84 Blood Pressure Source [Right Arm] Automatic Cuff Blood Pressure Position [Right Arm] Supine 02 Sat by Pulse Oximetry 99 Oxygen Delivery Method Room Air - Lab Data Lab Results 03/14/20 08:32: WBC 12.2 H, RBC 3.61 L, Hgb 11.0 L, Hct 33.5 L, MCV 92.8, MCH 30.6, MCHC 33.0, RDW 14.6, Plt Count 513 H, MPV 7.3 L, Neut % (Auto) 73.0, Lymph % (Auto) 15.5, [place] % (Auto) 6.4, Eos % (Auto) 4.5, Baso % (Auto) 0.5, Neut # (Auto) 8.9 H, Lymph # (Auto) 1.9, [place] # (Auto) 0.8, Eos # (Auto) 0.6 H, Baso # (Auto) 0.1 03/14/20 08:32: Sodium 141, Potassium 4.1, Chloride 106, Carbon Dioxide 25, Anion Gap 14.1, BUN 21 H, Creatinine 1.30 H, Estimated Creat Clear 71, Estimated GFR 54 L, Est GFR ( Amer) 65, Glucose 132 H, Calcium 8.4, Total Bilirubin 0.6, AST 23, ALT 15, Alkaline Phosphatase 92, Troponin I < 0.01, Total Protein 8.1, Albumin 3.8, Globulin 4.3 H, Albumin/Globulin Ratio 0.9 L, TSH 6.61 H, Thyroxine (T4) 6.8 03/14/20 08:32: NT-Pro-B Natriuret Pep 957 H Result diagrams: 03/14/20 08:32 03/14/20 08:32 Orders (Tests/Meds): ORDERS Category Date Time Status Lactic Acid Stat Lab 03/14/20 10:04 Ordered Troponin I Q3H Lab 03/14/20 11:45 Ordered Troponin I Q3H Lab 03/14/20 14:45 Ordered Urinalysis and Microscopic Stat Lab 03/14/20 08:40 Ordered Blood Culture Stat Micro 03/14/20 10:04 Ordered - Radiology Data #1 Image(s): Chest Image Reviewed: Yes I reviewed the patient's radiology image, Yes I have reviewed radiologist's interpretation Preliminary Findings: Normal/NAD - CT Data CT Scan: Head Time Received: 09:[address] Reviewed: Yes: I have viewed the radiologist's interpretation Preliminary Findings: Normal/NAD - ECG Data Tracing #1 EKG interpreted by Dennis Hua MD: Rhythm: sinus Rate: 63 [place]: normal Ectopy: none Conduction: First-degree AV block ST Segment Changes: none T Wave Changes: none Q Waves: none Low voltage QRS No evidence of acute ischemia or injury
--- NOTE | 2020-03-14 08:33 | ECG_ITS ---
APPROVED REPORT Exam: Resting ECG HR:62 bpm ECG Measurements Heart Rate 62 AXES NJ 202 P 58 QRSd 88 QRS 1 QT 434 T 43 QTc 440 <Conclusion> Normal sinus rhythm Low voltage QRS Borderline ECG Electronically signed by : Gasper Montana, 03/15/2020 17:04:54
--- NOTE | 2020-03-14 08:39 | XR_ITS ---
PROCEDURE: XR CHEST 2V CLINICAL INDICATION: dizzy Weakness COMPARISON: CXR CHEST(2 VIEWS-NOT PORTABLE) from 06/15/2016 CXR CHEST(2 VIEWS-NOT PORTABLE) from 07/29/2016 XR CHEST PORTABLE from 01/16/2020 FINDINGS: No fracture or dislocation. No lytic or blastic change. There is normal mineralization. The joint spaces are well-preserved. No significant degenerative/arthritic changes. No erosive changes evident. Other findings:None. IMPRESSION: No acute findings. Dictated by: Pablo Berger MD 03/14/2020 09:47 Electronically signed by Pablo Berger MD in [facility] 03/14/2020 09:47
--- NOTE | 2020-03-14 08:40 | CT_ITS ---
PROCEDURE: CT HEAD/BRAIN WO CON CLINICAL INDICATION: dizziness COMPARISON: No exams were available for comparison TECHNIQUE: Axial images obtained. All CT scans at the facility use one or more dose reduction, viz: automated exposure control, ma/kV adjustment per patient size (including targeted exams where dose is matched to indication, i.e. head), or iterative reconstruction technique. FINDINGS: No midline shift, mass effect, intracranial hemorrhage, hydrocephalus, or extra-axial fluid collection is evident. There is generalized atrophy with hypoattenuation of the periventricular white matter consistent with microangiopathic changes., prominent cisterna magna is present as a normal variant. The calvarium has an unremarkable appearance. No mastoid effusion. Minimal mucosal thickening ethmoid sinuses with mild leftward nasal septal deviation IMPRESSION: No acute intracranial finding Dictated by: Pablo Berger MD 03/14/2020 09:43 Electronically signed by Pablo Berger MD in [facility] 03/14/2020 09:43
[2020-03-14 08:49] LABS: Basophils # 0.1 K/mm3 (0-0.2); Basophils % 0.5 % (0.1-2.0); Eosinophils # 0.6 K/mm3 (0.0-0.4); Eosinophils % 4.5 % (0.1-12.0); Hematocrit 33.5 % (42.0-52.0); Lymphocytes # 1.9 K/mm3 (0.7-4.5); Lymphocytes % 15.5 % (10-50); Mean Corpuscular Hemoglobin 30.6 pg (27.0-31.2); Mean Corpuscular Volume 92.8 fl (80-94); Mean Platelet Volume 7.3 fl (7.4-10.4); Monocytes # 0.8 K/mm3 (0.1-1.0); Monocytes % 6.4 % (1.7-9.3); Neutrophils # 8.9 K/mm3 (1.8-7.8); Platelet Count 513 K/mm3 (142-424); Red Blood Count 3.61 M/mm3 (4.60-6.20); Red Cell Distribution Width 14.6 % (11.5-17.5); White Blood Count 12.2 K/mm3 (4.8-10.8)
--- NOTE | 2020-03-14 08:49 | PC.NURSE ---
Pt unable to urinate, attempted and was unsuccessful
[2020-03-14 08:53] LABS: Alanine Aminotransferase 15 U/L (12-78); Albumin Level 3.8 g/dl (3.5-5.0); Albumin/Globulin Ratio 0.9 (1.1-1.8); Alkaline Phosphatase 92 U/L (38-126); Anion Gap 14.1 mEq/L (5-15); Aspartate Amino Transferase 23 U/L (17-59); Bilirubin,Total 0.6 mg/dl (0.2-1.3); Blood Urea Nitrogen 21 mg/dl (9-20); Calcium 8.4 mg/dl (8.4-10.2); Carbon Dioxide 25 mmol/L (22.0-30.0); Chloride 106 mmol/L (98-107); Creatinine Clearance Estimated 71 mL/min (50-200); Estimated Glomerular Filt Rate 54 ml/min (>60); GFR (African American) 65 ML/MIN (>60); Globulin 4.3 g/dL (1.3-3.2); Glucose 132 mg/dl (74-100); Potassium 4.1 mmoL/L (3.5-5.1); Sodium 141 mmol/L (136-145); Total Protein,Serum 8.1 g/dl (6.3-8.2)
[2020-03-14 09:04] LABS: NT Pro Brain Natriuretic Pep. 957 pg/mL (0-125)
[2020-03-14 09:08] LABS: Troponin I < 0.01 ng/ml (0.00-0.034)
[2020-03-14 09:10] LABS: T4 (Thyroxine) 6.8 ug/dl (5.53-11.0)
[2020-03-14 09:24] LABS: Thyroid Stimulating Hormone 6.61 uIU/mL (0.465-4.68)
--- NOTE | 2020-03-14 09:59 | PC.NURSE ---
Dr Hua speaking with Dr Marino
--- NOTE | 2020-03-14 10:25 | PC.NURSE ---
Pt continues to be unable to produce urine, notified 2nd floor nurse of need for urine sample
[2020-03-14 10:41] LABS: Lactic Acid 1.1 mmol/L (0.7-2.1)
--- NOTE | 2020-03-14 10:43 | PC.NURSE ---
Pt arrived to the floor at this time via wc
--- NOTE | 2020-03-14 10:58 | HMH.HP ---
*Admission Date: 03/14/20 *Chief complaint: FRANCESCA, syncope *History of present illness: 74-year-old white male with long history of recurrent lymphedema and cellulitis laterally. History also significant for hypertension, diabetes, seasonal allergies, and obesity. He presented to the ER this morning via EMS after experiencing dizziness and near syncope at work. Upon arrival he felt much better. Noted to have blood pressure within a normal range but soft for him. Was afebrile. Initial work-up concerning for mild elevation white cell count and creatinine of 1.3 with baseline approximately 1. Of note, he has failed 2 rounds of oral antibiotics in the outpatient setting with a recent cultures obtained last week showing multiple bacteria (Pseudomonas, E faecalis) with worsening resistance. As patient was systemically well, he was referred to infectious disease and was awaiting appointment. He has been following with wound care/lymphedema clinic for Unna boot dressing changes multiple times a week and lymphedema care. In the ER he was initiated on no antibiotics given no signs of sepsis. After getting to the floor, pharmacy was consulted to assist in antibiotic selection. Decision to place patient on vancomycin and meropenem based on sensitivities from cultures last week. Blood cultures obtained, will likely need PICC line before discharge home. On interview, patient denies any significant symptoms at this time. States he is feeling much better. Dizziness resolved. Tolerating diabetic diet. Comfortable in bed watching the news. [facility] History I have reviewed the patient's past medical history: Yes Medical History: Reports:: BPH, Diabetes Mellitus Type 2, Hypertension, Peripheral Artery Disease Denies:: Cancer, Diabetes Mellitus Type 1, MRSA *Have you ever received a pneumonia vaccine?: No *Have you received a flu vaccine this season?: No Other Medical History: Reports: Arthritis, Cataracts Laterality Cases: Left: Total Hip Replacement Other Surgeries: Yes: Other Amputation: No Fractures: No - *Social History Smoking Status: Former smoker Tobacco Type: cigars # Packs/Day (cigarettes): 1 #Yrs smoked (if former smoker): 0 Alcohol Intake: never Alcohol Intake Frequency:: other Substance Use Type: denies use *Occupational Status:: retired Housing: apartment Household Members: none *Travel in the last 8 weeks: None Family Hx:: Cancer, Heart Attack, Hypertension Review of Systems - Review of Systems Review of systems:: pertinent systems reviewed and negative unless documented below (14 point review of systems performed, pertinent positives and negatives as per HPI) Meds Home Medications Medication Instructions Recorded Confirmed Type carvedilol 25 mg tablet 25 mg PO BID 30 Days #60 01/17/18 03/14/20 History fluticasone propionate 50 1 spr INTRANASAL HS PRN 60 Days #16 01/17/18 03/14/20 History mcg/actuation nasal spray,suspension Tamsulosin HCl [Flomax 0.4mg 0.8 mg PO HS 04/04/18 03/14/20 History capsule] furosemide 40 mg tablet 40 mg PO HS 11/14/19 03/14/20 History Aspirin [Aspirin 81mg EC Tab] 81 mg PO DAILY 01/17/20 03/14/20 History Dapagliflozin Propanediol [Farxiga] 10 mg PO DAILY 03/14/20 03/14/20 History Famotidine [Pepcid 20mg Tablet] 20 mg PO DAILY 03/14/20 03/14/20 History Allergies Allergy/AdvReac Type Severity Reaction Status Date / Time Antihistamines - Alkylamine Allergy Mild MADE SKIN Verified 01/16/20 15:20 [ANTIHISTAMINES - ALKYLAMINE] FEEL LIKE ON FIRE NSAIDS (Non-Steroidal AdvReac Severe kidney Verified 01/16/20 15:20 Anti-Inflamma failure Exam Vital signs and Labs for Last 24 Hours: Temp Pulse Resp BP Pulse Ox 98.2 F 66 17 141/66 H 99 03/14/20 10:30 03/14/20 10:30 03/14/20 10:30 03/14/20 10:30 03/14/20 09:31 Laboratory Results - last 24 hr 03/14/20 08:32: WBC 12.2 H, RBC 3.61 L, Hgb 11.0 L, Hct 33.5 L, MCV 92.8, MCH 30.6, MCHC 33.0, RDW 14.6, P
[2020-03-14 11:14] LABS: POC Glucose,Bedside 93 (70-110)
--- NOTE | 2020-03-14 12:01 | HMH.PHACONS ---
- Pharmacy Consult Date: 03/14/20 Time: 12:01 Referring provider: DR. MCDUFFIE Reason for Consult:: VANCOMYCIN DOSING Allergies and ADEs:: Allergies Allergy/AdvReac Type Severity Reaction Status Date / Time Antihistamines - Alkylamine Allergy Mild MADE SKIN Verified 01/16/20 15:20 [ANTIHISTAMINES - ALKYLAMINE] FEEL LIKE ON FIRE NSAIDS (Non-Steroidal AdvReac Severe kidney Verified 01/16/20 15:20 Anti-Inflamma failure Home Medications:: Home Medications Medication Instructions Recorded Confirmed Type carvedilol 25 mg tablet 25 mg PO BID 30 Days #60 01/17/18 03/14/20 History fluticasone propionate 50 1 spr INTRANASAL HS PRN 60 Days #16 01/17/18 03/14/20 History mcg/actuation nasal spray,suspension Tamsulosin HCl [Flomax 0.4mg 0.8 mg PO HS 04/04/18 03/14/20 History capsule] furosemide 40 mg tablet 40 mg PO HS 11/14/19 03/14/20 History Aspirin [Aspirin 81mg EC Tab] 81 mg PO DAILY 01/17/20 03/14/20 History Dapagliflozin Propanediol [Farxiga] 10 mg PO DAILY 03/14/20 03/14/20 History Famotidine [Pepcid 20mg Tablet] 20 mg PO DAILY 03/14/20 03/14/20 History Height: 1.73 m Weight: 120.004 kg Laboratory Results:: Laboratory Results - last 24 hr 03/14/20 08:32: WBC 12.2 H, RBC 3.61 L, Hgb 11.0 L, Hct 33.5 L, MCV 92.8, MCH 30.6, MCHC 33.0, RDW 14.6, Plt Count 513 H, MPV 7.3 L, Neut % (Auto) 73.0, Lymph % (Auto) 15.5, [place] % (Auto) 6.4, Eos % (Auto) 4.5, Baso % (Auto) 0.5, Neut # (Auto) 8.9 H, Lymph # (Auto) 1.9, [place] # (Auto) 0.8, Eos # (Auto) 0.6 H, Baso # (Auto) 0.1 03/14/20 08:32: Sodium 141, Potassium 4.1, Chloride 106, Carbon Dioxide 25, Anion Gap 14.1, BUN 21 H, Creatinine 1.30 H, Estimated Creat Clear 71, Estimated GFR 54 L, Est GFR ( Amer) 65, Glucose 132 H, Calcium 8.4, Total Bilirubin 0.6, AST 23, ALT 15, Alkaline Phosphatase 92, Troponin I < 0.01, Total Protein 8.1, Albumin 3.8, Globulin 4.3 H, Albumin/Globulin Ratio 0.9 L, TSH 6.61 H, Thyroxine (T4) 6.8 03/14/20 08:32: NT-Pro-B Natriuret Pep 957 H 03/14/20 10:20: Lactate 1.1 03/14/20 11:07: POC Glucose 93 Medical History: Reports:: BPH, Diabetes Mellitus Type 2, Hypertension, Peripheral Artery Disease Denies:: Cancer, Diabetes Mellitus Type 1, MRSA Assessment and Plan (1) Obesity (BMI 30.0-34.9) Current visit: Yes Status: Chronic Category: Medical Code(s): E66.9 - Obesity, unspecified (2) Acute kidney injury Current visit: Yes Status: Acute Category: Medical Code(s): N17.9 - Acute kidney failure, unspecified (3) Cellulitis, leg Current visit: Yes Status: Acute Qualifiers: Laterality: unspecified laterality Qualified Code(s): L03.119 - Cellulitis of unspecified part of limb Category: Medical Code(s): L03.119 - Cellulitis of unspecified part of limb (4) Near syncope Current visit: Yes Status: Acute Category: Medical Code(s): R55 - Syncope and collapse (5) Bilateral lower leg cellulitis Current visit: No Status: Acute Category: Medical Code(s): L03.116 - Cellulitis of left lower limb; L03.115 - Cellulitis of right lower limb (6) Chronic acquired lymphedema Current visit: No Status: Chronic Category: Medical Code(s): I89.0 - Lymphedema, not elsewhere classified (7) Hypertension Current visit: No Status: Chronic Qualifiers: Category: Medical Code(s): I10 - Essential (primary) hypertension - Assessment and plan all Dx Assessment and Plan for all problems:: BASED ON PATIENT FACTORS, RECOMMEND INITIATING VANCOMYCIN AT 2,000MG IV EVERY Q24H. WILL OBTAIN TROUGH LEVEL PRIOR TO FOURTH DOSE WHEN PATIENT IS AT STEADY STATE. AT THAT POINT WILL ADJUST DOSE APPROPRIATE. -MARTINEZ SHANNOND
--- NOTE | 2020-03-14 12:06 | HMH.PTWOUND ---
Rehab Inpt Wound Evaluation Rehab IP Wound Evaluation Start: 03/14/20 11:00 Freq: ONCE Status: Active Protocol: Document 03/14/20 12:01 PAWAN (Rec: 03/14/20 12:06 PAWAN [id number]) Rehab PT Wound Assessment Subjective Subjective Pt with no new c/o pain, feeling better at this time. B lower legs cleansed with hibiclens and sterile water. Wound Left Lower Leg Wound Type Stasis Ulcer Is This a Chronic Wound Yes Wound Length (cm) 7.0 Wound Width (cm) 7.0 Wound Bed Appearance [place] Wound Margins Description Macerated Surrounding Tissue Appearance [place] Wound Drainage Description Purulent,Green Drainage Amount Large Primary Dressing Unna Boot Wound Secondary Dressing Type Gauze Roll/Wrap,Adhering Gauze Roll Wound Debridement Method Gauze Wound Debridement Amount of Tissue Minimal Removed Dressing Change Patient Tolerance Tolerated Well Right Lower Leg Wound Type Stasis Ulcer Is This a Chronic Wound Yes Wound Length (cm) 10.0 Wound Width (cm) 10.0 Wound Bed Appearance [place] Wound Margins Description Macerated Surrounding Tissue Appearance [place] Wound Drainage Description Purulent,Green Drainage Amount Copious Primary Dressing Unna Boot Wound Secondary Dressing Type Gauze Roll/Wrap,Adhering Gauze Roll Wound Debridement Method Gauze Wound Debridement Amount of Tissue Minimal Removed Plan/Recommendation Comment Pt with copious drainage and will need unna boot change likely every 1-2 days. Will follow as needed. Eval Complexity Eval Charge Codes 30649 - High Complexity PHYSICIAN CERTIFICATION: I certify the specified therapy services for Riki Mckeon are required, authorized, and reviewed every 30 days.
[2020-03-14 12:26] LABS: Troponin I < 0.01 ng/ml (0.00-0.034)
[2020-03-14 15:36] LABS: Troponin I < 0.01 ng/ml (0.00-0.034)
[2020-03-14 16:29] LABS: POC Glucose,Bedside 82 (70-110)
--- NOTE | 2020-03-14 18:31 | PC.NURSE ---
PATIENT ARRIVED TO FLOOR FROM ER VIA WHEELCHAIR. PATIENT C/O MILD PAIN WILL MEDICATE PER MAR. TEDS PLACED ON PT TO BLE. PATIENT A&O. PATIENT ON 2 LPM N/C O2 SAT 100% RT AT BEDSIDE PLACED PT ON RA O2 SAT 96%. NO ISSUES AT THIS TIME, SAFETY MEASURES IN PLACE.
--- NOTE | 2020-03-14 18:39 | PC.NURSE ---
patient lying in bed asleep with safety measures in place. no issues at this time
[2020-03-14 21:44] LABS: POC Glucose,Bedside 94 (70-110)
--- NOTE | 2020-03-14 22:52 | PC.NURSE ---
pt refused bath. He states he wants to wait until the morning to get cleaned up
[2020-03-15] VITALS (7 sets, daily range): BP systolic 113–134; BP diastolic 54–71; PULSE 64–77; RESP 18; TEMP 36.6–37.1; O2SAT 96–99; BMI 40.0; BMI 39.9
--- NOTE | 2020-03-15 06:03 | PC.NURSE ---
Pt rested in long intervals. No complaints reported to staff. Unna boots in place to BLE. Pt voiding clear, yellow urine independently using urinal. Tolerating IV abx well. Tele monitor showing 1st degree AV block. VSS.
--- NOTE | 2020-03-15 08:28 | HMH.PHAINT ---
MEDICATION RECONCILIATION COMPLETED ON PATIENT USING EXTERNAL FILL HISTORY FROM PHARMACY. -ADITYA MONTEZ, MARTINEZD
--- NOTE | 2020-03-15 09:01 | HMH.ACPN2 ---
Internal Medicine - PN: Subj *Date: 03/15/20 *Time: 09:47 Interval history: Mr. Vega did well overnight. Tolerating regular diet. No fevers. Hemodynamically stable. Blood pressure was little elevated prior to his evening carvedilol but has been well controlled since. Given his low diastolic pressure on arrival yesterday and with his orthostatic blood pressures, in the setting of diuretic and antidiabetic medications as an outpatient, hypotension likely accounts for his symptoms yesterday. Denies nausea, vomiting, diarrhea, chest pain, shortness of breath. Legs having drainage through the night through his Unna boots. Does complain of some mild leg aches today. Labs pending this morning Exam Vital signs and Labs for Last 24 Hours: Temp Pulse Resp BP Pulse Ox 98.1 F 74 18 126/56 L 97 03/15/20 08:00 03/15/20 08:00 03/15/20 08:00 03/15/20 08:00 03/15/20 08:00 Laboratory Results - last 24 hr 03/14/20 08:32: Troponin I < 0.01, TSH 6.61 H, Thyroxine (T4) 6.8 03/14/20 08:32: NT-Pro-B Natriuret Pep 957 H 03/14/20 10:20: Lactate 1.1 03/14/20 11:07: POC Glucose 93 03/14/20 11:45: Troponin I < 0.01 03/14/20 15:00: Troponin I < 0.01 03/14/20 16:22: POC Glucose 82 03/14/20 20:20: POC Glucose 94 I & O for Last 24 hours: Intake & Output 03/12/20 03/13/20 03/14/20 03/15/20 23:59 23:59 23:59 23:59 Intake Total 1428 / 1648 700 / 700 Output Total 1050 / 1050 300 / 300 Balance 378 / 598 400 / 400 Weight 120.004 kg 119.748 kg Narrative: - Constitutional no acute distress, obese, in bed supine - *Routine HEENT Exam Head: Present: normocephalic Eye: Present: EOMI, PERRL ENT: Present: mucous membranes moist - *Routine Neck Exam Present: supple. Absent: lymphadenopathy - *Routine Respiratory Exam Present: CTA bilaterally - *Routine Cardiovascular Exam Present: RRR - *Routine Abdominal Exam Present: soft, normoactive bowel sounds. Absent: tenderness - *Routine Extremities Exam Present: edema (Bilateral lower extremities at baseline. Unna boots in place. Mild erythema above top of wraps), serous drainage through bandaging; mild warmth to legs. Absent: cyanosis, clubbing - *Routine Skin Exam Present: warm. Absent: rash - *Routine Neurological Exam Present: alert, oriented X3 - Routine Psychiatric Exam Present: normal affect Assessment and Plan (1) Acute kidney injury Current visit: Yes Status: Acute Category: Medical Code(s): N17.9 - Acute kidney failure, unspecified (2) Cellulitis, leg Current visit: Yes Status: Acute Qualifiers: Laterality: unspecified laterality Qualified Code(s): L03.119 - Cellulitis of unspecified part of limb Category: Medical Code(s): L03.119 - Cellulitis of unspecified part of limb (3) Multiple drug resistant organism (MDRO) culture positive Current visit: Yes Status: Acute Category: Medical Code(s): Z16.24 - Resistance to multiple antibiotics Ultra positive from 03/07/2020. Necessitating IV antibiotics. Consultation with pharmacy to develop manageable home regimen for IV infusions once stable for discharge. (4) Near syncope Current visit: Yes Status: Acute Category: Medical Code(s): R55 - Syncope and collapse (5) Bilateral lower leg cellulitis Current visit: No Status: Acute Category: Medical Code(s): L03.116 - Cellulitis of left lower limb; L03.115 - Cellulitis of right lower limb (6) Chronic acquired lymphedema Current visit: No Status: Chronic Category: Medical Code(s): I89.0 - Lymphedema, not elsewhere classified (7) Hypertension Current visit: No Status: Chronic Qualifiers: Category: Medical Code(s): I10 - Essential (primary) hypertension (8) Morbid obesity with BMI of 40.0-44.9, adult Current visit: No Status: Chronic Category: Medical Code(s): E66.01 - Morbid (severe) obesity due to excess calories; Z68.41 - Body mass index (BMI) 40.0-44.9, adult
[2020-03-15 09:02] LABS: Basophils % 0.3 % (0.1-2.0); Eosinophils # 0.6 K/mm3 (0.0-0.4); Eosinophils % 6.1 % (0.1-12.0); Hematocrit 32.7 % (42.0-52.0); Hemoglobin 10.4 g/dL (14.1-18.0); Lymphocytes # 1.4 K/mm3 (0.7-4.5); Lymphocytes % 13.5 % (10-50); Mean Corpuscular Volume 90.8 fl (80-94); Mean Platelet Volume 8.2 fl (7.4-10.4); Monocytes # 0.4 K/mm3 (0.1-1.0); Monocytes % 3.6 % (1.7-9.3); Neutrophils % 76.5 % (37.0-80.0); Platelet Count 434 K/mm3 (142-424); Red Cell Distribution Width 14.3 % (11.5-17.5); White Blood Count 10.5 K/mm3 (4.8-10.8)
--- NOTE | 2020-03-15 09:17 | HMH.PHACONS ---
- Pharmacy Consult Date: 03/15/20 Time: 09:17 Referring provider: DR. MCDUFFIE Reason for Consult:: TOBRAMYCIN DOSING Allergies and ADEs:: Allergies Allergy/AdvReac Type Severity Reaction Status Date / Time Antihistamines - Alkylamine Allergy Mild MADE SKIN Verified 01/16/20 15:20 [ANTIHISTAMINES - ALKYLAMINE] FEEL LIKE ON FIRE NSAIDS (Non-Steroidal AdvReac Severe kidney Verified 01/16/20 15:20 Anti-Inflamma failure Home Medications:: Home Medications Medication Instructions Recorded Confirmed Type carvedilol 25 mg tablet 25 mg PO BID 30 Days #60 01/17/18 03/14/20 History fluticasone propionate 50 1 spr INTRANASAL HS PRN 60 Days #16 01/17/18 03/14/20 History mcg/actuation nasal spray,suspension Tamsulosin HCl [Flomax 0.4mg 0.8 mg PO HS 04/04/18 03/14/20 History capsule] furosemide 40 mg tablet 40 mg PO HS 11/14/19 03/14/20 History Aspirin [Aspirin 81mg EC Tab] 81 mg PO DAILY 01/17/20 03/14/20 History Dapagliflozin Propanediol [Farxiga] 10 mg PO DAILY 03/14/20 03/14/20 History Famotidine [Pepcid 20mg Tablet] 20 mg PO DAILY 03/14/20 03/14/20 History Height: 1.73 m Weight: 119.748 kg Laboratory Results:: Laboratory Results - last 24 hr 03/14/20 08:32: TSH 6.61 H 03/14/20 10:20: Lactate 1.1 03/14/20 11:07: POC Glucose 93 03/14/20 11:45: Troponin I < 0.01 03/14/20 15:00: Troponin I < 0.01 03/14/20 16:22: POC Glucose 82 03/14/20 20:20: POC Glucose 94 03/15/20 08:55: WBC 10.5, RBC 3.60 L, Hgb 10.4 L, Hct 32.7 L, MCV 90.8, MCH 29.0, MCHC 32.0, RDW 14.3, Plt Count 434 H, MPV 8.2, Neut % (Auto) 76.5, Lymph % (Auto) 13.5, [place] % (Auto) 3.6, Eos % (Auto) 6.1, Baso % (Auto) 0.3, Neut # (Auto) 8.0 H, Lymph # (Auto) 1.4, [place] # (Auto) 0.4, Eos # (Auto) 0.6 H, Baso # (Auto) 0.0 Medical History: Reports:: BPH, Diabetes Mellitus Type 2, Hypertension, Peripheral Artery Disease Denies:: Cancer, Diabetes Mellitus Type 1, MRSA Assessment and Plan (1) Acute kidney injury Current visit: Yes Status: Acute Category: Medical Code(s): N17.9 - Acute kidney failure, unspecified (2) Cellulitis, leg Current visit: Yes Status: Acute Qualifiers: Laterality: unspecified laterality Qualified Code(s): L03.119 - Cellulitis of unspecified part of limb Category: Medical Code(s): L03.119 - Cellulitis of unspecified part of limb (3) Near syncope Current visit: Yes Status: Acute Category: Medical Code(s): R55 - Syncope and collapse (4) Bilateral lower leg cellulitis Current visit: No Status: Acute Category: Medical Code(s): L03.116 - Cellulitis of left lower limb; L03.115 - Cellulitis of right lower limb (5) Chronic acquired lymphedema Current visit: No Status: Chronic Category: Medical Code(s): I89.0 - Lymphedema, not elsewhere classified (6) Hypertension Current visit: No Status: Chronic Qualifiers: Category: Medical Code(s): I10 - Essential (primary) hypertension (7) Morbid obesity with BMI of 40.0-44.9, adult Current visit: No Status: Chronic Category: Medical Code(s): E66.01 - Morbid (severe) obesity due to excess calories; Z68.41 - Body mass index (BMI) 40.0-44.9, adult - Assessment and plan all Dx Assessment and Plan for all problems:: IBW (kg): 68.63 Dosing wt(kg): 88.8 (DOSE IS 4.5 MG/KG DBW) Estimated Creatinine clearance (ml/min): 49.1 CRCL method: Cockcroft and Gault using ibw(default). Drug selected: Tobramycin Loading dose (mg): 0 Vd (liters): 26.6 (factor used: 0.3 L/kg) Faraz (hr-1): 0.158 Half life (hrs): 4.39 Recommended dose: 400 mg Interval: 24 hrs Infusion time (hrs): 1 Predicted peak (mcg/mL): 14.2 Predicted trough (mcg/mL): 0.38 Renal function is stable [ ] /unstable [ ] Recommendations: Give Tobramycin 400 mg q 24 hrs with an expected Cpeak of 14.2 mcg/ml and an expected Ctrough of 0.38 mcg/ml. WILL OBT
[2020-03-15 09:18] LABS: Chloride 104 mmol/L (98-107)
[2020-03-15 09:19] LABS: Potassium 3.4 mmoL/L (3.5-5.1); Sodium 138 mmol/L (136-145)
--- NOTE | 2020-03-15 09:19 | HMH.PHAINT ---
MEDICATION RECONCILIATION COMPLETED ON PATIENT USING EXTERNAL FILL HISTORY FROM PHARMACY. -ADITYA MONTEZ, MARTINEZD
[2020-03-15 09:21] LABS: Alanine Aminotransferase 13 U/L (12-78); Aspartate Amino Transferase 19 U/L (17-59); Blood Urea Nitrogen 17 mg/dl (9-20); Creatinine Clearance Estimated 101 mL/min (50-200); Estimated Glomerular Filt Rate 66 ml/min (>60); GFR (African American) 79 ML/MIN (>60)
[2020-03-15 09:22] LABS: Albumin Level 3.1 g/dl (3.5-5.0); Albumin/Globulin Ratio 0.9 (1.1-1.8); Alkaline Phosphatase 65 U/L (38-126); Anion Gap 13.4 mEq/L (5-15); Bilirubin,Total 0.5 mg/dl (0.2-1.3); Carbon Dioxide 24 mmol/L (22.0-30.0); Globulin 3.6 g/dL (1.3-3.2); Glucose 129 mg/dl (74-100); Magnesium 1.7 mg/dl (1.6-2.3); Total Protein,Serum 6.7 g/dl (6.3-8.2)
--- NOTE | 2020-03-15 09:27 | HMH.PHAVTE ---
[facility] Pharmacy VTE Monitoring - Patient Demographics Admission date: 03/14/20 Report Date: 03/15/20 Time: 09:27 Allergies/Adverse Reactions: Patient Allergies Antihistamines - Alkylamine [ANTIHISTAMINES - ALKYLAMINE] Allergy (Mild, Verified 01/16/20 15:20) MADE SKIN FEEL LIKE ON FIRE NSAIDS (Non-Steroidal Anti-Inflamma Adverse Reaction (Severe, Verified 01/16/20 15:20) kidney failure Height: 1.73 m Weight: 119.748 kg Patient Problems: Current Active Problems Cellulitis, leg (Acute) Near syncope (Acute) Acute kidney injury (Acute) - VTE Risk Labs: VTE Related Lab Results Hgb 10.4 g/dL (14.1-18.0) L 03/15/20 08:55 Hct 32.7 % (42.0-52.0) L 03/15/20 08:55 Plt Count 434 K/mm3 (142-424) H 03/15/20 08:55 BUN 21 mg/dl (9-20) H 03/14/20 08:32 Creatinine 1.30 mg/dl (0.66-1.25) H 03/14/20 08:32 Estimated Creat Clear 71 mL/min (50-200) 03/14/20 08:32 VTE Score: 2 VTE Risk Level: Very Low Risk - Prophylaxis VTE Prophylaxis Ordered?: Yes Types of VTE Prophylaxis: Pharmacological Pharmacologic Type: Enoxaparin - VTE Diagnosis Confirmed Treatment or plan recommended: Continue Current Treatment
--- NOTE | 2020-03-15 09:57 | XR_ITS ---
PROCEDURE: XR CHEST PORTABLE PICC PLAC CLINICAL INDICATION: Confirm PICC line placement COMPARISON: CXR CHEST(2 VIEWS-NOT PORTABLE) from 07/29/2016 XR CHEST PORTABLE from 01/16/2020 XR CHEST 2V from 03/14/2020 FINDINGS: Left upper extremity PICC line has been placed. The tip is in good position in the region of the SVC. Mild cardiomegaly Other findings:. There is some minimal nodularity in the right midlung nonspecific. May be due to vascular crowding as this was not readily apparent on a prior study of 03/14/2020 IMPRESSION: Good position of PICC line. Dictated by: Pablo Berger MD 03/15/2020 15:52 Electronically signed by Pablo Berger MD in [place] 03/15/2020 15:52
--- NOTE | 2020-03-15 10:57 | SW/DCPLANNER ---
I have spoke with this patient regarding discharge plans. Patient resides at home alone and is employed at local [employer]. I have explained to patient that he will need PICC line placement along with 14 days of IV antibiotics. I explained to patient different options of receiving IV antibiotics: placement vs home health vs outpatient [facility]. Patient was quick to chose to return to [facility] for outpatient care including: IV antibiotics, wound care and labs. I will inform MD. Patient stated that he could possibly discharge tomorrow.
[2020-03-15 11:29] LABS: POC Glucose,Bedside 107 (70-110)
[2020-03-15 11:29] LABS: POC Glucose,Bedside 101 (70-110)
--- NOTE | 2020-03-15 14:32 | PC.NURSE ---
PT IS RESTING IN BED. PT HAS AMBULATED TO THE BATHROOM THIS SHIFT. ALERT AND ORIENTED X4. EATING AND DRINKING WELL. PT IS AGREEABLE TO THE PICC LINE INSERTION AND WILL RETURN DAILY FOR IV ABX AFTER DC. LUNG SOUNDS CLEAR. BOWEL SOUNDS NORMAL. UNNA BOOTS NOTED TO BLE. PHYSICAL THERAPY STATED UNNA BOOTS DID NOT NEED TO BE CHANGED THIS SHIFT BUT WILL NEED TO BE CHANGED BEFORE DC TOMORROW. BATH AND LINEN CHANGE THIS SHIFT. VSS. WILL CONTINUE TO MONITOR.
[2020-03-15 15:24] LABS: Tobramycin,Random 7.2 ug/ml
--- NOTE | 2020-03-15 16:00 | DIET.NUTRFU ---
Nutritional assessment,IP completed by student Dulce Maria Rain under my direct supervision.
--- NOTE | 2020-03-15 16:00 | PC.NURSE ---
Notified Dr Marino at this time that pt PICC line is in good position per Dr Berger.
[2020-03-15 16:15] LABS: POC Glucose,Bedside 109 (70-110)
--- NOTE | 2020-03-15 19:15 | PC.NURSE ---
report given to cintia
[2020-03-15 22:27] LABS: Tobramycin,Random 2.6 ug/ml
[2020-03-16] VITALS: BP 168/82; PULSE 56; PULSE 60; RESP 20; TEMP 36.6; O2SAT 97
[2020-03-16 01:08] LABS: POC Glucose,Bedside 100 (70-110)
[2020-03-16 04:00] VITALS: BP 123/78; PULSE 50; PULSE 63; RESP 20; TEMP 36.7; O2SAT 98
[2020-03-16 05:44] LABS: POC Glucose,Bedside 92 (70-110)
[2020-03-16 06:19] VITALS: BMI 39.9
[2020-03-16 06:20] LABS: Basophils % 0.3 % (0.1-2.0); Eosinophils # 0.7 K/mm3 (0.0-0.4); Eosinophils % 7.2 % (0.1-12.0); Hematocrit 32.8 % (42.0-52.0); Hemoglobin 10.8 g/dL (14.1-18.0); Lymphocytes % 20.6 % (10-50); Mean Corpuscular HGB Conc 32.8 g/dL (31.8-35.4); Mean Corpuscular Hemoglobin 29.8 pg (27.0-31.2); Mean Corpuscular Volume 90.8 fl (80-94); Mean Platelet Volume 7.2 fl (7.4-10.4); Monocytes # 0.6 K/mm3 (0.1-1.0); Monocytes % 6.4 % (1.7-9.3); Neutrophils # 6.3 K/mm3 (1.8-7.8); Neutrophils % 65.5 % (37.0-80.0); Platelet Count 472 K/mm3 (142-424); Red Blood Count 3.62 M/mm3 (4.60-6.20); Red Cell Distribution Width 14.4 % (11.5-17.5); White Blood Count 9.6 K/mm3 (4.8-10.8)
[2020-03-16 06:21] LABS: Chloride 104 mmol/L (98-107); Sodium 139 mmol/L (136-145)
[2020-03-16 06:22] LABS: Potassium 3.8 mmoL/L (3.5-5.1)
[2020-03-16 06:24] LABS: Alanine Aminotransferase 16 U/L (12-78); Alkaline Phosphatase 74 U/L (38-126); Anion Gap 12.8 mEq/L (5-15); Aspartate Amino Transferase 23 U/L (17-59); Bilirubin,Total 0.3 mg/dl (0.2-1.3); Blood Urea Nitrogen 17 mg/dl (9-20); Calcium 8.1 mg/dl (8.4-10.2); Carbon Dioxide 26 mmol/L (22.0-30.0); Creatinine Clearance Estimated 111 mL/min (50-200); Estimated Glomerular Filt Rate 73 ml/min (>60); GFR (African American) 89 ML/MIN (>60); Glucose 96 mg/dl (74-100)
[2020-03-16 06:25] LABS: Albumin Level 3.3 g/dl (3.5-5.0); Albumin/Globulin Ratio 0.9 (1.1-1.8); Globulin 3.8 g/dL (1.3-3.2); Total Protein,Serum 7.1 g/dl (6.3-8.2)
--- NOTE | 2020-03-16 06:36 | PC.NURSE ---
A&OX3. POWER MARKETER EQUAL BILAT. LUNGS NOTED CLEAR T/O AUSCULTATION. TOLERATED RA WELL. PULSES +2, CAP REFILL < 3 SEC. NSR WITH FIRST DEGREE HEART BLOCK NOTED PER MACHINE CERAMIC COATER. ABDOMEN NOTED DISTENDED, ACTIVE BOWEL SOUNDS PER AUSCULTATION, SOFT AND NONTENDER PER PALPATION. UNNA BOOTS NOTED TO BLE, CDI. PICC LINE DRESSING NOTED TO LUE CDI. PICC LINE NOTED WITH BLOOD RETURN AND PATENT THIS SHIFT. INDEPENDENT WITH ADLS. VSS. WILL CONTINUE TO MONITOR.
--- NOTE | 2020-03-16 06:44 | PC.NURSE ---
MAINTAINED LEFT LIMB ALERT T/O SHIFT.
--- NOTE | 2020-03-16 07:44 | HMH.DCSUM ---
General - General Admission date:: 03/14/20 Discharge date: 03/16/20 HPI HPI: 74-year-old white male with long history of recurrent lymphedema and cellulitis laterally. History also significant for hypertension, diabetes, seasonal allergies, and obesity. He presented to the ER this morning via EMS after experiencing dizziness and near syncope at work. Upon arrival he felt much better. Noted to have blood pressure within a normal range but soft for him. Was afebrile. Initial work-up concerning for mild elevation white cell count and creatinine of 1.3 with baseline approximately 1. Of note, he has failed 2 rounds of oral antibiotics in the outpatient setting with a recent cultures obtained last week showing multiple bacteria (Pseudomonas, E faecalis) with worsening resistance. As patient was systemically well, he was referred to infectious disease and was awaiting appointment. He has been following with wound care/lymphedema clinic for Unna boot dressing changes multiple times a week and lymphedema care. In the ER he was initiated on no antibiotics given no signs of sepsis. After getting to the floor, pharmacy was consulted to assist in antibiotic selection. Decision to place patient on vancomycin and meropenem based on sensitivities from cultures last week. Blood cultures obtained, will likely need PICC line before discharge home. On interview, patient denies any significant symptoms at this time. States he is feeling much better. Dizziness resolved. Tolerating diabetic diet. Comfortable in bed watching the news. Hospital Course Hospital Course: Patient was admitted, hydrated, intravenous antibiotics were started. Review of past cultures from the legs were done, given his Pseudomonas and Enterococcus faecalis specimens it was decided that he would benefit from oral Zyvox along with intravenous tobramycin. PICC line was placed without complications in the left antecubital area. Tobramycin was dosed with pharmacy assistance. Patient tolerated his first couple doses of tobramycin well. Hypotension and orthostasis resolved, kidney issues resolved, plan will be to cut patient's carvedilol dose down to 12.5 twice daily. Plan to be to discharge home today after his tobramycin dose with Zyvox p.o., and he will return daily to the infusion department for tobramycin, and every other day will have wound care evaluation. We will follow him up in our office as scheduled. 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 Alert, oriented x3, pleasant as always. Heart rate regular. Lungs clear. Abdomen soft. Neurologic exam nonfocal. Legs are wrapped in Unna boots, much smaller than an outpatient setting. Drainage is well controlled at this moment. Results Labs on day of discharge: Labs from last 24 hours 03/16/20 03/16/20 03/16/20 05:30 05:30 05:30 WBC 9.6 RBC 3.62 L Hgb 10.8 L Hct 32.8 L MCV 90.8 MCH 29.8 MCHC 32.8 RDW 14.4 Plt Count 472 H MPV 7.2 L Neut % (Auto) 65.5 Lymph % (Auto) 20.6 [place] % (Auto) 6.4 Eos % (Auto) 7.2 Baso % (Auto) 0.3 Neut # (Auto) 6.3 Lymph # (Auto) 2.0 [place] # (Auto) 0.6 Eos # (Auto) 0.7 H Baso # (Auto) 0.0 Sodium 139 Potassium 3.8 Chloride 104 Carbon Dioxide 26 Anion Gap 12.8 BUN 17 Creatinine 1.00 Estimated Creat Clear 111 Estimated GFR 73 Est GFR ( Amer) 89 Glucose 96 D POC Glucose 92 Calcium 8.1 L Magnesium 2.0 D Total Bilirubin 0.3 AST 23 ALT 16 Alkaline Phosphatase 74 Total Protein
[2020-03-16 08:00] VITALS: BP 155/74; PULSE 64; PULSE 70; RESP 19; TEMP 36.4; O2SAT 100
--- NOTE | 2020-03-16 08:30 | PC.NURSE ---
picc to LUE changed using sterile technique.
--- NOTE | 2020-03-16 08:48 | HMH.PHACONS ---
- Pharmacy Consult Date: 03/16/20 Time: 08:48 Referring provider: DR. MATIAS Reason for Consult:: TOBRAMYCIN LEVELS Allergies and ADEs:: Allergies Allergy/AdvReac Type Severity Reaction Status Date / Time Antihistamines - Alkylamine Allergy Mild MADE SKIN Verified 01/16/20 15:20 [ANTIHISTAMINES - ALKYLAMINE] FEEL LIKE ON FIRE NSAIDS (Non-Steroidal AdvReac Severe kidney Verified 01/16/20 15:20 Anti-Inflamma failure Home Medications:: Home Medications Medication Instructions Recorded Confirmed Type fluticasone propionate 50 1 spr INTRANASAL HS PRN 60 Days #16 01/17/18 03/14/20 History mcg/actuation nasal spray,suspension Tamsulosin HCl [Flomax 0.4mg 0.8 mg PO HS 04/04/18 03/14/20 History capsule] Aspirin [Aspirin 81mg EC Tab] 81 mg PO DAILY 01/17/20 03/14/20 History Dapagliflozin Propanediol [Farxiga] 10 mg PO DAILY 03/14/20 03/14/20 History Famotidine [Pepcid 20mg Tablet] 20 mg PO DAILY 03/14/20 03/14/20 History carvediloL [Coreg 12.5mg 12.5 mg PO BID 30 Days #60 tab 03/15/20 Rx Tablet] Linezolid [Zyvox 600mg Tablet] 600 mg PO BID #20 tab 03/16/20 Rx Tobramycin/Sodium Chloride 400 mg IV DAILY 14 Days piggyback 03/16/20 Rx [Tobramycin 60 mg/50 ml Ns] Height: 1.73 m Weight: 119.658 kg Laboratory Results:: Laboratory Results - last 24 hr 03/15/20 05:16: POC Glucose 101 03/15/20 08:55: WBC 10.5, RBC 3.60 L, Hgb 10.4 L, Hct 32.7 L, MCV 90.8, MCH 29.0, MCHC 32.0, RDW 14.3, Plt Count 434 H, MPV 8.2, Neut % (Auto) 76.5, Lymph % (Auto) 13.5, [place] % (Auto) 3.6, Eos % (Auto) 6.1, Baso % (Auto) 0.3, Neut # (Auto) 8.0 H, Lymph # (Auto) 1.4, [place] # (Auto) 0.4, Eos # (Auto) 0.6 H, Baso # (Auto) 0.0 03/15/20 08:55: Sodium 138, Potassium 3.4 L, Chloride 104, Carbon Dioxide 24, Anion Gap 13.4, BUN 17, Creatinine 1.10, Estimated Creat Clear 101, Estimated GFR 66, Est GFR ( Amer) 79 D, Glucose 129 H, Calcium 8.0 L, Magnesium 1.7, Total Bilirubin 0.5, AST 19, ALT 13, Alkaline Phosphatase 65, Total Protein 6.7, Albumin 3.1 L D, Globulin 3.6 H, Albumin/Globulin Ratio 0.9 L 03/15/20 11:22: POC Glucose 107 03/15/20 15:00: Random Tobramycin 7.2 03/15/20 16:06: POC Glucose 109 03/15/20 21:59: POC Glucose 100 03/15/20 22:01: Random Tobramycin 2.6 03/16/20 05:30: WBC 9.6, RBC 3.62 L, Hgb 10.8 L, Hct 32.8 L, MCV 90.8, MCH 29.8, MCHC 32.8, RDW 14.4, Plt Count 472 H, MPV 7.2 L, Neut % (Auto) 65.5, Lymph % (Auto) 20.6, [place] % (Auto) 6.4, Eos % (Auto) 7.2, Baso % (Auto) 0.3, Neut # (Auto) 6.3, Lymph # (Auto) 2.0, [place] # (Auto) 0.6, Eos # (Auto) 0.7 H, Baso # (Auto) 0.0 03/16/20 05:30: Sodium 139, Potassium 3.8, Chloride 104, Carbon Dioxide 26, Anion Gap 12.8, BUN 17, Creatinine 1.00, Estimated Creat Clear 111, Estimated GFR 73, Est GFR ( Amer) 89, Glucose 96 D, Calcium 8.1 L, Magnesium 2.0 D, Total Bilirubin 0.3, AST 23, ALT 16, Alkaline Phosphatase 74, Total Protein 7.1, Albumin 3.3 L, Globulin 3.8 H, Albumin/Globulin Ratio 0.9 L 03/16/20 05:30: POC Glucose 92 Medical History: Reports:: BPH, Diabetes Mellitus Type 2, Hypertension, Peripheral Artery Disease Denies:: Cancer, Diabetes Mellitus Type 1, MRSA Assessment and Plan (1) Acute kidney injury Current visit: Yes Status: Resolved Category: Medical Code(s): N17.9 - Acute kidney failure, unspecified (2) Cellulitis, leg Current visit: Yes Status: Chronic Qualifiers: Laterality: unspecified laterality Qualified Code(s): L03.119 - Cellulitis of unspecified part of limb Category: Medical Code(s): L03.119 - Cellulitis of unspecified part of limb (3) 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
== END 2020-03-16 10:58 | disposition home or self-care (01) ==
LOC: ER 10:06 → 2ND 10:24
PROVIDERS: Admitting Provider Internal Medicine Adolescent Medicine; Emergency Provider Emergency Medicine; PCP Internal Medicine Adolescent Medicine; Visit Provider Internal Medicine Adolescent Medicine
DX: L03.115 Cellulitis of right lower limb (principal); L03.116 Cellulitis of left lower limb; Z16.24 Resistance to multiple antibiotics; I89.0 Lymphedema, not elsewhere classified; E66.01 Morbid (severe) obesity due to excess calories; Z68.41 Body mass index [BMI] 40.0-44.9, adult; E11.9 Type 2 diabetes mellitus without complications; I10 Essential (primary) hypertension; N17.9 Acute kidney failure, unspecified; Z87.891 Personal history of nicotine dependence; Z79.84 Long term (current) use of oral hypoglycemic drugs; Z79.82 Long term (current) use of aspirin; Z79.899 Other long term (current) drug therapy; Z88.8 Allergy status to other drugs, medicaments and biological substances; R06.9 Unspecified abnormalities of breathing; B96.5 Pseudomonas (aeruginosa) (mallei) (pseudomallei) as the cause of diseases classified elsewhere; B96.1 Klebsiella pneumoniae [K. pneumoniae] as the cause of diseases classified elsewhere
CPT/HCPCS: 36415; 36569; 70450; 71045; 71046; 80053; 80200; 82962; 83605; 83735; 83880; 84436; 84443; 84484; 85025; 87040; 93005; 99285; C1751; G0378; J2185; J3370

== ENCOUNTER → 2020-03-17 13:16 | Outpatient (CLI) | payer MEDICARE, OTHER, SELFPAY ==
[2020-03-17 13:43] VITALS: BMI 40.1
[2020-03-17 14:10] VITALS: BP 151/85; PULSE 70; RESP 18; TEMP 37; O2SAT 99
[2020-03-17 14:15] LABS: Blood Urea Nitrogen 19 mg/dl (9-20); Calcium 8.4 mg/dl (8.4-10.2); Carbon Dioxide 26 mmol/L (22.0-30.0); Chloride 105 mmol/L (98-107); Creatinine Clearance Estimated 101 mL/min (50-200); Estimated Glomerular Filt Rate 66 ml/min (>60); GFR (African American) 79 ML/MIN (>60); Glucose 98 mg/dl (74-100); Sodium 139 mmol/L (136-145)
[2020-03-17 14:20] LABS: Tobramycin,Trough 0.9 ug/ml (0-2.0)
[2020-03-17 15:39] VITALS: BP 151/85; PULSE 70; RESP 18; TEMP 37; O2SAT 99
--- NOTE | 2020-03-18 08:08 | HMH.PHACONS ---
- Pharmacy Consult Date: 03/17/20 Time: 15:00 Referring provider: DR. MATIAS Reason for Consult:: TOBRAMYCIN TROUGH LEVEL Allergies and ADEs:: Allergies Allergy/AdvReac Type Severity Reaction Status Date / Time Antihistamines - Alkylamine Allergy Mild MADE SKIN Verified 01/16/20 15:20 [ANTIHISTAMINES - ALKYLAMINE] FEEL LIKE ON FIRE NSAIDS (Non-Steroidal AdvReac Severe kidney Verified 01/16/20 15:20 Anti-Inflamma failure Home Medications:: Home Medications Medication Instructions Recorded Confirmed Type fluticasone propionate 50 1 spr INTRANASAL HS PRN 60 Days #16 01/17/18 03/14/20 History mcg/actuation nasal spray,suspension Tamsulosin HCl [Flomax 0.4mg 0.8 mg PO HS 04/04/18 03/14/20 History capsule] Aspirin [Aspirin 81mg EC Tab] 81 mg PO DAILY 01/17/20 03/14/20 History Dapagliflozin Propanediol [Farxiga] 10 mg PO DAILY 03/14/20 03/14/20 History Famotidine [Pepcid 20mg Tablet] 20 mg PO DAILY 03/14/20 03/14/20 History carvediloL [Coreg 12.5mg 12.5 mg PO BID 30 Days #60 tab 03/15/20 Rx Tablet] Linezolid [Zyvox 600mg Tablet] 600 mg PO BID #20 tab 03/16/20 Rx Tobramycin Sulfate [Tobramycin 480 mg IV 0900 ml 03/16/20 Rx 80mg/2mL Vial] Height: 1.73 m Weight: 119.748 kg Laboratory Results:: Laboratory Results - last 24 hr 03/17/20 13:50: Sodium 139, Potassium 4.0, Chloride 105, Carbon Dioxide 26, Anion Gap 12.0, BUN 19, Creatinine 1.10, Estimated Creat Clear 101, Estimated GFR 66, Est GFR ( Amer) 79, Glucose 98, Calcium 8.4, Tobramycin Trough 0.9 Medical History: Reports:: BPH, Diabetes Mellitus Type 2, Hypertension, Peripheral Artery Disease Denies:: Cancer, Diabetes Mellitus Type 1, MRSA Assessment and Plan - Assessment and plan all Dx Assessment and Plan for all problems:: PATIENT'S TOBRAMYCIN TROUGH LEVEL WAS 0.9 MCG/ML ON 03/17/20 WITH 480 MG Q24H DOSING. RECOMMEND CONTINUING WITH CURRENT DOSE AND INTERVAL AT THIS TIME.
== END ==
PROVIDERS: PCP Internal Medicine Adolescent Medicine; Visit Provider Internal Medicine Adolescent Medicine
DX: L03.116 Cellulitis of left lower limb (principal); L03.115 Cellulitis of right lower limb; N17.9 Acute kidney failure, unspecified
CPT/HCPCS: 80048; 80200; 96365

== ENCOUNTER 2020-03-18 14:54 | Outpatient (CLI) | payer MEDICARE, OTHER, SELFPAY ==
[2020-03-18 15:00] VITALS: BP 148/68; PULSE 74; RESP 18; TEMP 36.3; O2SAT 97
[2020-03-18 15:30] VITALS: BP 151/71; PULSE 78; RESP 18; O2SAT 97
[2020-03-18 16:14] VITALS: BP 149/79; PULSE 76; RESP 18; O2SAT 97
== END 2020-03-18 16:17 | disposition home or self-care (01) ==
LOC: INF 14:54
PROVIDERS: PCP Emergency Medicine; Visit Provider Emergency Medicine
DX: L03.116 Cellulitis of left lower limb (principal)
CPT/HCPCS: 96365

== ENCOUNTER 2020-03-19 14:47 | Outpatient (CLI) | payer MEDICARE, OTHER, SELFPAY ==
[2020-03-19 15:10] VITALS: BP 153/63; PULSE 73; RESP 18; TEMP 37.1; O2SAT 98
[2020-03-19 15:40] VITALS: BP 150/60; PULSE 76; RESP 18; O2SAT 97
[2020-03-19 16:10] VITALS: BP 156/68; PULSE 74; RESP 18; O2SAT 98
[2020-03-19 16:15] VITALS: BP 151/62; PULSE 78; RESP 18; O2SAT 97
== END 2020-03-19 16:20 | disposition home or self-care (01) ==
LOC: INF 14:47
PROVIDERS: Visit Provider Emergency Medicine
DX: L03.116 Cellulitis of left lower limb (principal)
CPT/HCPCS: 96365

== ENCOUNTER 2020-03-20 14:59 | Outpatient (CLI) | payer MEDICARE, OTHER, SELFPAY ==
[2020-03-20 15:10] VITALS: BP 153/84; PULSE 88; RESP 18; TEMP 36.8; O2SAT 99
[2020-03-20 15:40] VITALS: BP 150/81; PULSE 84; RESP 18; O2SAT 98
[2020-03-20 16:15] VITALS: BP 153/69; PULSE 86; RESP 18; O2SAT 98
== END 2020-03-20 16:15 | disposition home or self-care (01) ==
LOC: INF 14:59
PROVIDERS: Visit Provider Internal Medicine Adolescent Medicine
DX: L03.116 Cellulitis of left lower limb (principal); L03.115 Cellulitis of right lower limb
CPT/HCPCS: 96365

== ENCOUNTER 2020-03-21 14:57 | Outpatient (CLI) | payer MEDICARE, OTHER, SELFPAY ==
[2020-03-21 15:00] VITALS: BP 147/58; PULSE 66; RESP 18; TEMP 36.7; O2SAT 98
[2020-03-21 16:25] VITALS: BP 149/57; PULSE 69; RESP 18; O2SAT 96
== END 2020-03-21 16:25 | disposition home or self-care (01) ==
LOC: INF 14:57
PROVIDERS: Visit Provider Internal Medicine Adolescent Medicine
DX: L03.116 Cellulitis of left lower limb (principal); L03.115 Cellulitis of right lower limb; I89.0 Lymphedema, not elsewhere classified
CPT/HCPCS: 96365

== ENCOUNTER 2020-03-22 13:00 | Outpatient (CLI) | payer MEDICARE, OTHER, SELFPAY ==
[2020-03-22 13:24] VITALS: BP 139/54; PULSE 64; RESP 18; O2SAT 98
[2020-03-22 14:01] LABS: Tobramycin,Trough 2.7 ug/ml (0-2.0)
[2020-03-22 14:24] VITALS: BP 132/62; PULSE 61; RESP 18
== END 2020-03-22 14:50 | disposition home or self-care (01) ==
LOC: INF 13:12
PROVIDERS: Visit Provider Internal Medicine Adolescent Medicine
DX: L03.116 Cellulitis of left lower limb (principal)
CPT/HCPCS: 80200; 96365

== ENCOUNTER → 2020-03-23 13:02 | Outpatient (CLI) | payer MEDICARE, OTHER, SELFPAY ==
[2020-03-23 13:43] VITALS: BP 141/66; PULSE 64; RESP 16; TEMP 36.6; O2SAT 100
[2020-03-23 13:51] LABS: Chloride 106 mmol/L (98-107); Sodium 138 mmol/L (136-145)
[2020-03-23 13:52] LABS: Potassium 4.2 mmoL/L (3.5-5.1)
[2020-03-23 13:54] LABS: Blood Urea Nitrogen 24 mg/dl (9-20); Estimated Glomerular Filt Rate 46 ml/min (>60); GFR (African American) 56 ML/MIN (>60)
[2020-03-23 13:55] LABS: Anion Gap 13.2 mEq/L (5-15); Carbon Dioxide 23 mmol/L (22.0-30.0); Glucose 95 mg/dl (74-100)
[2020-03-23 14:06] LABS: Tobramycin,Trough 2.8 ug/ml (0-2.0)
== END ==
PROVIDERS: PCP Internal Medicine Adolescent Medicine; Visit Provider Internal Medicine Adolescent Medicine
DX: L03.116 Cellulitis of left lower limb (principal)
CPT/HCPCS: 80048; 80200

== ENCOUNTER → 2020-03-24 14:13 | Outpatient (CLI) | payer MEDICARE, OTHER, SELFPAY ==
[2020-03-24 14:46] LABS: Chloride 105 mmol/L (98-107); Sodium 139 mmol/L (136-145)
[2020-03-24 14:49] LABS: Blood Urea Nitrogen 21 mg/dl (9-20); Estimated Glomerular Filt Rate 54 ml/min (>60); GFR (African American) 65 ML/MIN (>60)
[2020-03-24 14:50] LABS: Carbon Dioxide 25 mmol/L (22.0-30.0); Glucose 112 mg/dl (74-100)
[2020-03-24 14:56] LABS: Tobramycin,Trough 0.8 ug/ml (0-2.0)
--- NOTE | 2020-03-24 15:01 | HMH.PHACONS ---
- Pharmacy Consult Date: 03/24/20 Time: 15:01 Referring provider: DR. MATIAS Reason for Consult:: TOBRAMYCIN TROUGH LEVELS Allergies and ADEs:: Allergies Allergy/AdvReac Type Severity Reaction Status Date / Time Antihistamines - Alkylamine Allergy Mild MADE SKIN Verified 01/16/20 15:20 [ANTIHISTAMINES - ALKYLAMINE] FEEL LIKE ON FIRE NSAIDS (Non-Steroidal AdvReac Severe kidney Verified 01/16/20 15:20 Anti-Inflamma failure Home Medications:: Home Medications Medication Instructions Recorded Confirmed Type fluticasone propionate 50 1 spr INTRANASAL HS PRN 60 Days #16 01/17/18 03/22/20 History mcg/actuation nasal spray,suspension Tamsulosin HCl [Flomax 0.4mg 0.8 mg PO HS 04/04/18 03/22/20 History capsule] Aspirin [Aspirin 81mg EC Tab] 81 mg PO DAILY 01/17/20 03/22/20 History Dapagliflozin Propanediol [Farxiga] 10 mg PO DAILY 03/14/20 03/22/20 History Famotidine [Pepcid 20mg Tablet] 20 mg PO DAILY 03/14/20 03/22/20 History Linezolid [Zyvox 600mg Tablet] 600 mg PO BID 03/18/20 03/22/20 History Tobramycin Sulfate [Tobramycin 480 mg IV 0900 03/18/20 03/22/20 History 80mg/2mL Vial] carvediloL [Coreg 12.5mg 12.5 mg PO BID 03/18/20 03/22/20 History Tablet] Height: 1.73 m Weight: 119 kg Laboratory Results:: Laboratory Results - last 24 hr 03/24/20 14:30: Sodium 139, Potassium 4.0, Chloride 105, Carbon Dioxide 25, Anion Gap 13.0, BUN 21 H, Creatinine 1.30 H, Estimated GFR 54 L, Est GFR ( Amer) 65, Glucose 112 H, Calcium 8.0 L 03/24/20 14:30: Tobramycin Trough 0.8 Medical History: Reports:: BPH, Diabetes Mellitus Type 2, Hypertension, Peripheral Artery Disease Denies:: Cancer, Diabetes Mellitus Type 1, MRSA Assessment and Plan - Assessment and plan all Dx Assessment and Plan for all problems:: BASED ON TOBRAMYCIN TROUGH LEVELS THE PAST 2 DAYS, RECOMMEND HOLDING DOSE YESTERDAY AND RESTARTING TODAY. NEW INTERVAL IS TOBRAMYCIN 480 MG IV Q48H. TODAY IS DAY 8 OUT OF 14 OF TOBRAMYCIN OUTPATIENT THERAPY. PHARMACY WILL CONTINUE TO MONITOR DAILY AND ADJUST APPROPRIATE.
[2020-03-24 15:10] VITALS: BP 148/82; PULSE 68; RESP 20; TEMP 36.6; O2SAT 98
[2020-03-24 16:20] VITALS: BP 150/82; PULSE 65; RESP 16; TEMP 36.6; O2SAT 99
== END ==
PROVIDERS: PCP Internal Medicine Adolescent Medicine; Visit Provider Internal Medicine Adolescent Medicine
DX: L03.116 Cellulitis of left lower limb (principal)
CPT/HCPCS: 80048; 80200; 96365

== ENCOUNTER 2020-03-26 14:33 | Outpatient (CLI) | payer MEDICARE, OTHER, SELFPAY ==
[2020-03-26 14:50] VITALS: BP 151/74; PULSE 71; RESP 18; TEMP 36.8
[2020-03-26 16:14] VITALS: BP 154/86; PULSE 67; RESP 18
== END 2020-03-26 16:14 | disposition home or self-care (01) ==
LOC: INF 14:33
PROVIDERS: Visit Provider Internal Medicine Adolescent Medicine
DX: L03.116 Cellulitis of left lower limb (principal)
CPT/HCPCS: 96365

== ENCOUNTER 2020-03-28 15:00 | Outpatient (CLI) | payer MEDICARE, OTHER, SELFPAY ==
[2020-03-28 15:15] VITALS: BP 148/76; PULSE 77; RESP 18; TEMP 36.4; O2SAT 100
[2020-03-28 16:39] VITALS: BP 155/72; PULSE 71; RESP 18
== END 2020-03-28 16:39 | disposition home or self-care (01) ==
LOC: INF 15:00
PROVIDERS: Visit Provider Internal Medicine Adolescent Medicine
DX: N17.9 Acute kidney failure, unspecified (principal); L03.116 Cellulitis of left lower limb; L03.115 Cellulitis of right lower limb
CPT/HCPCS: 96365

== ENCOUNTER 2020-03-30 14:32 | Outpatient (CLI) | payer MEDICARE, OTHER, SELFPAY ==
[2020-03-30 14:59] VITALS: BP 159/72; PULSE 74; RESP 17; TEMP 37.1; O2SAT 97
[2020-03-30 15:55] VITALS: BP 152/69; PULSE 72; RESP 16; TEMP 36.6; O2SAT 72; O2SAT 98
== END 2020-03-30 15:55 | disposition home or self-care (01) ==
LOC: INF 14:33
PROVIDERS: PCP Internal Medicine Adolescent Medicine; Visit Provider Internal Medicine Adolescent Medicine
DX: L03.116 Cellulitis of left lower limb (principal)
CPT/HCPCS: 96365

== ENCOUNTER 2020-04-03 13:05 | Outpatient (CLI) | payer MEDICARE, OTHER, SELFPAY | END 2020-04-03 13:25 | disposition home or self-care (01) | LOC: INF 13:20 | PROVIDERS: PCP Internal Medicine Adolescent Medicine; Visit Provider Internal Medicine Adolescent Medicine | DX: Z45.2 Encounter for adjustment and management of vascular access device (principal); L03.116 Cellulitis of left lower limb; L03.115 Cellulitis of right lower limb | CPT/HCPCS: 96523 ==

== ENCOUNTER 2020-04-09 12:26 | Outpatient (CLI) | payer MEDICARE, OTHER, SELFPAY ==
[2020-04-09 12:27] VITALS: BMI 41.0
[2020-04-09 12:44] LABS: Basophils # 0.1 K/mm3 (0-0.2); Basophils % 0.6 % (0.1-2.0); Eosinophils # 0.8 K/mm3 (0.0-0.4); Eosinophils % 8.8 % (0.1-12.0); Hematocrit 31.9 % (42.0-52.0); Hemoglobin 10.3 g/dL (14.1-18.0); Lymphocytes % 22.5 % (10-50); Mean Corpuscular HGB Conc 32.4 g/dL (31.8-35.4); Mean Corpuscular Volume 92.7 fl (80-94); Mean Platelet Volume 6.7 fl (7.4-10.4); Monocytes # 0.7 K/mm3 (0.1-1.0); Monocytes % 7.3 % (1.7-9.3); Neutrophils # 5.4 K/mm3 (1.8-7.8); Neutrophils % 60.8 % (37.0-80.0); Platelet Count 355 K/mm3 (142-424); Red Blood Count 3.45 M/mm3 (4.60-6.20); Red Cell Distribution Width 15.4 % (11.5-17.5); White Blood Count 8.8 K/mm3 (4.8-10.8)
[2020-04-09 12:50] LABS: Chloride 108 mmol/L (98-107); Sodium 140 mmol/L (136-145)
[2020-04-09 12:52] LABS: Alanine Aminotransferase 13 U/L (12-78); Aspartate Amino Transferase 21 U/L (17-59); Blood Urea Nitrogen 21 mg/dl (9-20); Creatinine Clearance Estimated 81 mL/min (50-200); Estimated Glomerular Filt Rate 50 ml/min (>60); GFR (African American) 60 ML/MIN (>60)
[2020-04-09 12:53] LABS: Albumin Level 3.6 g/dl (3.5-5.0); Albumin/Globulin Ratio 0.9 (1.1-1.8); Alkaline Phosphatase 84 U/L (38-126); Bilirubin,Total 0.4 mg/dl (0.2-1.3); Calcium 8.1 mg/dl (8.4-10.2); Carbon Dioxide 22 mmol/L (22.0-30.0); Globulin 3.8 g/dL (1.3-3.2); Glucose 97 mg/dl (74-100); Total Protein,Serum 7.4 g/dl (6.3-8.2)
== END 2020-04-09 12:40 | disposition home or self-care (01) ==
LOC: INF 12:26
PROVIDERS: PCP Internal Medicine Adolescent Medicine; Visit Provider Internal Medicine Adolescent Medicine
DX: L03.116 Cellulitis of left lower limb (principal); Z45.2 Encounter for adjustment and management of vascular access device
CPT/HCPCS: 80053; 85025; G0463

== ENCOUNTER → 2020-04-26 11:42 | Outpatient (CLI) | payer MEDICARE, OTHER, SELFPAY ==
[2020-04-26 12:37] LABS: Chloride 107 mmol/L (98-107); Potassium 5.2 mmoL/L (3.5-5.1); Sodium 140 mmol/L (136-145)
[2020-04-26 12:40] LABS: Alanine Aminotransferase 14 U/L (12-78); Albumin Level 3.6 g/dl (3.5-5.0); Alkaline Phosphatase 87 U/L (38-126); Anion Gap 14.2 mEq/L (5-15); Aspartate Amino Transferase 20 U/L (17-59); Bilirubin,Total 0.2 mg/dl (0.2-1.3); Blood Urea Nitrogen 34 mg/dl (9-20); Carbon Dioxide 24 mmol/L (22.0-30.0); Estimated Glomerular Filt Rate 33 ml/min (>60); GFR (African American) 40 ML/MIN (>60); Globulin 3.6 g/dL (1.3-3.2); Total Protein,Serum 7.2 g/dl (6.3-8.2)
[2020-04-26 12:41] LABS: Calcium 8.3 mg/dl (8.4-10.2); Glucose 115 mg/dl (74-100)
[2020-04-26 13:00] LABS: Hemoglobin A1C 6.2 % (4.0-6.0)
== END ==
PROVIDERS: Visit Provider Internal Medicine Adolescent Medicine
DX: E11.69 Type 2 diabetes mellitus with other specified complication (principal)
CPT/HCPCS: 36415; 80053; 83036

== ENCOUNTER → 2020-04-29 14:59 | Outpatient (CLI) | payer MEDICARE, OTHER, SELFPAY ==
[2020-04-29 16:13] LABS: Chloride 107 mmol/L (98-107); Sodium 140 mmol/L (136-145)
[2020-04-29 16:14] LABS: Potassium 5.3 mmoL/L (3.5-5.1)
[2020-04-29 16:16] LABS: Anion Gap 14.3 mEq/L (5-15); Blood Urea Nitrogen 28 mg/dl (9-20); Carbon Dioxide 24 mmol/L (22.0-30.0); Estimated Glomerular Filt Rate 43 ml/min (>60); GFR (African American) 52 ML/MIN (>60)
[2020-04-29 16:17] LABS: Calcium 8.8 mg/dl (8.4-10.2); Glucose 121 mg/dl (74-100)
== END ==
PROVIDERS: Visit Provider Internal Medicine Adolescent Medicine
DX: E11.69 Type 2 diabetes mellitus with other specified complication (principal)
CPT/HCPCS: 36415; 80048

== ENCOUNTER 2020-05-07 10:05 | Emergency (ER) | payer MEDICARE, OTHER, SELFPAY ==
[2020-05-07 10:06] VITALS: BP 114/78; PULSE 61; RESP 18; TEMP 36.3; O2SAT 97; BMI 39.8
[2020-05-07 10:23] VITALS: BP 132/74; PULSE 63; O2SAT 93
--- NOTE | 2020-05-07 10:29 | ECG_ITS ---
APPROVED REPORT Exam: Resting ECG HR:65 bpm ECG Measurements Heart Rate 65 AXES IL 206 P 37 QRSd 86 QRS 6 QT 444 T 53 QTc 461 <Conclusion> Normal sinus rhythm,First Degree AV Block Otherwise a Normal ECG Electronically signed by : Javan Rogel, 05/07/2020 12:24:49
[2020-05-07 10:31] LABS: Basophils # 0.1 K/mm3 (0-0.2); Basophils % 0.7 % (0.1-2.0); Eosinophils # 0.9 K/mm3 (0.0-0.4); Eosinophils % 7.8 % (0.1-12.0); Hematocrit 38.7 % (42.0-52.0); Hemoglobin 12.8 g/dL (14.1-18.0); Lymphocytes # 1.9 K/mm3 (0.7-4.5); Lymphocytes % 17.6 % (10-50); Mean Corpuscular Hemoglobin 29.9 pg (27.0-31.2); Mean Corpuscular Volume 90.6 fl (80-94); Mean Platelet Volume 6.6 fl (7.4-10.4); Monocytes # 0.6 K/mm3 (0.1-1.0); Monocytes % 5.6 % (1.7-9.3); Neutrophils # 7.5 K/mm3 (1.8-7.8); Neutrophils % 68.4 % (37.0-80.0); Platelet Count 414 K/mm3 (142-424); Red Blood Count 4.27 M/mm3 (4.60-6.20); Red Cell Distribution Width 15.4 % (11.5-17.5); White Blood Count 10.9 K/mm3 (4.8-10.8)
--- NOTE | 2020-05-07 10:33 | HMH.EDWEAK ---
ED Disposition Clinical Impression: Dehydration, Gastroenteritis and colitis, viral Disposition: Home, Self-Care Condition on Discharge: Good Instructions: DI for Muscle Weakness Referrals: Gasper Montana MD [Primary Care Provider] - - Critical Care Critical Care Time: No Attestation: On 05/07/20, the high probability of a clinically significant, sudden or life threatening deterioration of the following system(s) required my full and direct attention, intervention and personal management. The time I documented below is in addition to time spent performing reported procedures but includes the following listed in this critical care notation. Medical Decision Making - Medical Records Medical records reviewed: Yes: I reviewed the patient's medical records. - Real Inquiry Pt receiving controlled substance: No Vital Signs: 05/07/20 10:06 05/07/20 10:23 05/07/20 10:53 Pulse Rate [Right Radial] 61 63 72 Respiratory Rate 18 Blood Pressure [Right Arm] 114/78 132/74 122/69 Blood Pressure Mean [Right Arm] 90 93 86 Blood Pressure Source [Right Arm] Automatic Cuff Automatic Cuff Automatic Cuff Blood Pressure Position [Right Arm] Sitting Sitting Sitting 02 Sat by Pulse Oximetry 97 93 L 100 Oxygen Delivery Method Room Air Room Air 05/07/20 11:16 05/07/20 11:33 Pulse Rate [Right Radial] 60 65 Respiratory Rate Blood Pressure [Right Arm] 126/65 150/68 H Blood Pressure Mean [Right Arm] 85 95 Blood Pressure Source [Right Arm] Automatic Cuff Automatic Cuff Blood Pressure Position [Right Arm] Sitting Sitting 02 Sat by Pulse Oximetry 99 95 Oxygen Delivery Method Room Air - Lab Data Lab results reviewed: Yes: I reviewed the patient's lab results. Lab Results 05/07/20 10:19: WBC 10.9 H, RBC 4.27 L, Hgb 12.8 L, Hct 38.7 L, MCV 90.6, MCH 29.9, MCHC 33.0, RDW 15.4, Plt Count 414, MPV 6.6 L, Neut % (Auto) 68.4, Lymph % (Auto) 17.6, [place] % (Auto) 5.6, Eos % (Auto) 7.8, Baso % (Auto) 0.7, Neut # (Auto) 7.5, Lymph # (Auto) 1.9, [place] # (Auto) 0.6, Eos # (Auto) 0.9 H, Baso # (Auto) 0.1 05/07/20 10:19: Sodium 137, Potassium 5.7 H, Chloride 102, Carbon Dioxide 25, Anion Gap 15.7 H, BUN 18, Creatinine 1.70 H, Estimated Creat Clear 65, Estimated GFR 40 L, Est GFR ( Amer) 48 L, Glucose 157 H, Calcium 8.8, Total Bilirubin 0.5, AST 31, ALT 21, Alkaline Phosphatase 135 H, Troponin I < 0.01, Total Protein 8.5 H, Albumin 4.1, Globulin 4.4 H, Albumin/Globulin Ratio 0.9 L Result diagrams: 05/07/20 10:19 05/07/20 10:19 Orders (Tests/Meds): ED MEDICATIONS Discontinued Medications Generic Name Dose Route Start Last Admin Trade Name Freq PRN Reason Stop Dose Admin Sodium Chloride 1,000 mls @ 999 mls/hr 05/07/20 10:30 05/07/20 10:25 Sod Chlor 0.9% 1000ml Bag IV 05/07/20 11:30 999 mls/hr .Q1H1M [id number] Administration Ondansetron HCl 4 mg 05/07/20 10:21 05/07/20 10:25 Zofran 4mg/2ml Vial IV 05/07/20 10:22 4 mg ONCE ONE Administration ORDERS Category Date Time Status Troponin I Q3H Lab 05/07/20 13:30 Ordered Troponin I Q3H Lab 05/07/20 16:30 Ordered Weakness HPI - General Chief complaint: Weakness Stated complaint: weakness, n/v Time Seen by Provider: 05/07/20 10:33 Mode of Arrival: EMS Source of Information: Patient Limitations: No Limitations Description of Symptoms (Recalled from ER Triage Doc. by RN): Pt reports generalized weakness, nausea that began yesterday. Pt reports vomitting x1 episode today. - History of Present Illness HPI Narrative: 74-year-old male presents the emergency department with weakness nausea and vomiting x1 day. Patient denies any abdominal pain or chest pain. Patient also denies any recent fever shakes or chills patient also denies any sore throat or headache patient also denies any shortness of breath or cough patient also denies any loss of taste or smell. Patient states that he has had one episode of emesis did have any medicine at home and came he
[2020-05-07 10:42] LABS: Alanine Aminotransferase 21 U/L (12-78); Albumin Level 4.1 g/dl (3.5-5.0); Albumin/Globulin Ratio 0.9 (1.1-1.8); Alkaline Phosphatase 135 U/L (38-126); Anion Gap 15.7 mEq/L (5-15); Aspartate Amino Transferase 31 U/L (17-59); Bilirubin,Total 0.5 mg/dl (0.2-1.3); Blood Urea Nitrogen 18 mg/dl (9-20); Calcium 8.8 mg/dl (8.4-10.2); Carbon Dioxide 25 mmol/L (22.0-30.0); Chloride 102 mmol/L (98-107); Creatinine Clearance Estimated 65 mL/min (50-200); Estimated Glomerular Filt Rate 40 ml/min (>60); GFR (African American) 48 ML/MIN (>60); Globulin 4.4 g/dL (1.3-3.2); Glucose 157 mg/dl (74-100); Potassium 5.7 mmoL/L (3.5-5.1); Sodium 137 mmol/L (136-145); Total Protein,Serum 8.5 g/dl (6.3-8.2)
[2020-05-07 10:53] VITALS: BP 122/69; PULSE 72; O2SAT 100
[2020-05-07 10:56] LABS: Troponin I < 0.01 ng/ml (0.00-0.034)
[2020-05-07 11:16] VITALS: BP 126/65; PULSE 60; O2SAT 99
[2020-05-07 11:33] VITALS: BP 150/68; PULSE 65; O2SAT 95
[2020-05-07 13:04] VITALS: BP 159/83; PULSE 65; RESP 18; TEMP 36.3; O2SAT 95
== END 2020-05-07 13:04 | disposition home or self-care (01) ==
PROVIDERS: Emergency Provider Family Medicine; PCP Internal Medicine Adolescent Medicine
DX: E86.0 Dehydration (principal); K52.9 Noninfective gastroenteritis and colitis, unspecified; E11.9 Type 2 diabetes mellitus without complications; I10 Essential (primary) hypertension; I73.9 Peripheral vascular disease, unspecified; L03.116 Cellulitis of left lower limb; Z87.442 Personal history of urinary calculi; Z87.891 Personal history of nicotine dependence; Z79.899 Other long term (current) drug therapy
CPT/HCPCS: 80053; 84484; 85025; 93005; 96365; 96366; 99284; J2405

== ENCOUNTER 2020-09-03 16:48 | Emergency (ER) | payer MEDICARE, OTHER, SELFPAY ==
[2020-09-03 18:00] VITALS: BP 104/72; PULSE 64; RESP 17; TEMP 36.9; O2SAT 97; BMI 40.4
--- NOTE | 2020-09-03 18:36 | HMH.EDUTC ---
[facility] Disposition Clinical Impression: Encounter for laboratory testing for COVID-19 virus Disposition: Home, Self-Care Condition on Discharge: Good Instructions: Nausea and Vomiting-Adult, Ondansetron, DI for COVID-19 (Suspected or Confirmed ), COVID-19: Testing and Tracing, Preventing the Spread of Coronavirus Discharge Instructions Additional Instructions: Dr Marino sent you in some zofran to help with your nausea make sure to pick it up and take as directed Your labs was drawn Make sure to follow up with Dr Marino for further treatment and evaluation Return if needed Straight to ER if any life threatening symptoms, worsening of vomiting and diarrhea Referrals: Gasper Montana MD [Primary Care Provider] - As needed Time of Disposition: 18:52 Medical Decision Making - Real Inquiry Pt receiving controlled substance: No Real was queried for this patient: No Vital Signs: 09/03/20 18:00 Temperature 98.4 F Temperature Source Oral Pulse Rate [Right Brachial] 64 Respiratory Rate 17 Blood Pressure [Right Arm] 104/72 L Blood Pressure Mean [Right Arm] 82 Blood Pressure Source [Right Arm] Automatic Cuff Blood Pressure Position [Right Arm] Sitting 02 Sat by Pulse Oximetry 97 Oxygen Delivery Method Room Air Orders (Tests/Meds): ED MEDICATIONS Discontinued Medications Generic Name Dose Route Start Last Admin Trade Name Freq PRN Reason Stop Dose Admin Ondansetron HCl 4 mg 09/03/20 18:36 09/03/20 18:43 Ondansetron 4mg Odt SL 09/03/20 18:37 4 mg ONCE ONE Administration ORDERS Category Date Time Status CBC w/Auto Diff [Complete Blood Count Auto Diff] Stat Lab 09/03/20 18:29 Ordered Comprehensive Metabolic Panel Stat Lab 09/03/20 18:29 Ordered Covid-19 Nasal PCR ([facility]) Routine Lab 09/03/20 18:30 Ordered Hemoglobin A1C Stat Lab 09/03/20 18:29 Ordered Medical Decision Narrative: Dr Marino had called [facility] and informed them of close family members testing positive for COVID and patient had failed to inform him of that earlier while in the office Dr Marino had wanted CBC and CMP along with COVID test and and A1C Labs drawn while in [facility] as requested by Dr Puentes out patient order. Discussed with patient and patient did not want to wait in the [facility] for the results and wanted to go home Spoke with Dr Marino patient tolerating oral intake drinking water without difficulty and keeping it down Dr Marino advised ok to let patient go home and wait on lab results and he would watch for his results and follow up with him as previously discussed [facility] HPI - General Stated complaint: covid test Time Seen by Provider: 09/03/20 18:00 Mode of Arrival: Ambulatory Source of Information: Patient Limitations: No Limitations Description of Symptoms (Recalled from Triage Doc. by RN): PATIENT C/O NAUSEA X 2 DAYS WITH DIARRHEA X 1. WAS AT PCP OFFICE TODAY AND GIVEN A PRESCRIPTION FOR ZOFRAN. PCP CALLED AND STATES THAT HE WOULD LIKE LAB WORK DRAWN ON PATIENT, AN ASSESSMENT, AND A COVID TEST. HEENT Symptoms (Recalled from RN notes): No Resp Symptoms (Recalled from RN notes): No Skin Symptoms (Recalled from RN notes): No MS Symptoms (Recalled from RN notes): No Functional Status (Recalled from RN notes): WNL - History of Present Illness Provider Complaint: Patient states that he seen his PCP earlier today because he was having nausea for two days and one eppisode of diarrhea earlier today States that he was called in prescription for zofran and they give him an order for labs State that as he was leaving his stomach was upset and he vomited up small amount States that after vomiting he felt better States that his daughter called his PCP and they wanted him to come in and get a COVID test due to other members of his family finding out they had tested positive for COVID and patient had failed to inform his PCP of that. - Related Data Home Medications Medication Instructions Recorded Confirmed fluticasone propionate
[2020-09-03 18:52] LABS: Basophils # 0.1 K/mm3 (0-0.2); Eosinophils # 0.1 K/mm3 (0.0-0.4); Eosinophils % 1.5 % (0.1-12.0); Hematocrit 45.3 % (42.0-52.0); Hemoglobin 15.1 g/dL (14.1-18.0); Lymphocytes # 1.3 K/mm3 (0.7-4.5); Lymphocytes % 15.8 % (10-50); Mean Corpuscular HGB Conc 33.3 g/dL (31.8-35.4); Mean Corpuscular Hemoglobin 29.8 pg (27.0-31.2); Mean Corpuscular Volume 89.2 fl (80-94); Mean Platelet Volume 7.3 fl (7.4-10.4); Monocytes # 0.5 K/mm3 (0.1-1.0); Monocytes % 5.7 % (1.7-9.3); Neutrophils # 6.2 K/mm3 (1.8-7.8); Neutrophils % 76.1 % (37.0-80.0); Platelet Count 300 K/mm3 (142-424); Red Blood Count 5.08 M/mm3 (4.60-6.20); Red Cell Distribution Width 14.4 % (11.5-17.5); White Blood Count 8.2 K/mm3 (4.8-10.8)
[2020-09-03 19:01] VITALS: BP 104/72; PULSE 64; RESP 17; TEMP 36.9; O2SAT 97
[2020-09-03 19:02] LABS: Alanine Aminotransferase 24 U/L (12-78); Albumin Level 4.4 g/dl (3.5-5.0); Alkaline Phosphatase 112 U/L (38-126); Anion Gap 14.5 mEq/L (5-15); Aspartate Amino Transferase 35 U/L (17-59); Bilirubin,Total 0.5 mg/dl (0.2-1.3); Blood Urea Nitrogen 17 mg/dl (9-20); Calcium 8.5 mg/dl (8.4-10.2); Carbon Dioxide 24 mmol/L (22.0-30.0); Chloride 102 mmol/L (98-107); Creatinine Clearance Estimated 74 mL/min (50-200); Estimated Glomerular Filt Rate 46 ml/min (>60); GFR (African American) 55 ML/MIN (>60); Globulin 4.6 g/dL (1.3-3.2); Glucose 118 mg/dl (74-100); Potassium 4.5 mmoL/L (3.5-5.1); Sodium 136 mmol/L (136-145)
[2020-09-03 19:04] LABS: Hemoglobin A1C 6.1 % (4.0-6.0)
--- NOTE | 2020-09-04 10:05 | PC.NURSE ---
Patient notified of positive covid results
== END 2020-09-03 19:02 | disposition home or self-care (01) ==
PROVIDERS: Internal Medicine Adolescent Medicine; Emergency Provider Nurse Practitioner; PCP Internal Medicine Adolescent Medicine
DX: U07.1 COVID-19 (principal); E11.9 Type 2 diabetes mellitus without complications; I10 Essential (primary) hypertension; I73.9 Peripheral vascular disease, unspecified; Z87.891 Personal history of nicotine dependence; Z96.642 Presence of left artificial hip joint; Z79.899 Other long term (current) drug therapy; Z88.8 Allergy status to other drugs, medicaments and biological substances
CPT/HCPCS: G0463; 80053; 83036; 85025; 99202; U0003

== ENCOUNTER → 2020-11-11 15:58 | Outpatient (CLI) | payer MEDICARE, OTHER, SELFPAY | PROVIDERS: Visit Provider Internal Medicine Adolescent Medicine | DX: L03.116 Cellulitis of left lower limb (principal) | CPT/HCPCS: 87070; 87077; 87186; 87205 ==

== ENCOUNTER 2020-11-19 13:00 | Outpatient (CLI) | payer MEDICARE, OTHER, SELFPAY ==
[2020-11-19 12:22] VITALS: BMI 41.3
[2020-11-19 12:35] LABS: Basophils # 0.1 K/mm3 (0-0.2); Eosinophils # 0.6 K/mm3 (0.0-0.4); Eosinophils % 5.4 % (0.1-12.0); Hematocrit 37.9 % (42.0-52.0); Hemoglobin 12.1 g/dL (14.1-18.0); Lymphocytes # 2.6 K/mm3 (0.7-4.5); Lymphocytes % 25.8 % (10-50); Mean Corpuscular HGB Conc 31.8 g/dL (31.8-35.4); Mean Corpuscular Hemoglobin 29.3 pg (27.0-31.2); Mean Corpuscular Volume 92.2 fl (80-94); Mean Platelet Volume 6.7 fl (7.4-10.4); Monocytes # 0.7 K/mm3 (0.1-1.0); Neutrophils # 6.2 K/mm3 (1.8-7.8); Neutrophils % 60.7 % (37.0-80.0); Platelet Count 437 K/mm3 (142-424); Red Blood Count 4.11 M/mm3 (4.60-6.20); Red Cell Distribution Width 16.2 % (11.5-17.5); White Blood Count 10.2 K/mm3 (4.8-10.8)
[2020-11-19 12:37] LABS: Chloride 113 mmol/L (98-107); Potassium 4.8 mmoL/L (3.5-5.1); Sodium 141 mmol/L (136-145)
[2020-11-19 12:40] LABS: Blood Urea Nitrogen 26 mg/dl (9-20); Creatinine Clearance Estimated 45 mL/min (50-200); Estimated Glomerular Filt Rate 50 ml/min (>60); GFR (African American) 60 ML/MIN (>60)
[2020-11-19 12:41] LABS: Anion Gap 13.8 mEq/L (5-15); Calcium 8.3 mg/dl (8.4-10.2); Carbon Dioxide 19 mmol/L (22.0-30.0); Glucose 108 mg/dl (74-100)
[2020-11-19 12:46] LABS: C-Reactive Protein 35.1 mg/L (0-4)
--- NOTE | 2020-11-19 13:09 | XR_ITS ---
PROCEDURE: XR CHEST PORTABLE CLINICAL HISTORY: picc Follow-up PICC placement COMPARISON: CR XR CHEST PORTABLE from 01/16/2020 CR XR CHEST 2V from 03/14/2020 CR XR CHEST PORTABLE PICC PLAC from 03/15/2020 FINDINGS: Left upper extremity PICC line has been placed. The tip is in the region the confluence of the brachiocephalic veins/proximal SVC. The lungs are clear without infiltrates, suspicious nodules, or pleural effusions. Normal heart size. IMPRESSION: PICC line tip near the confluence of the brachiocephalic vein/proximal SVC Dictated by: Pablo Berger MD 11/19/2020 13:18 Pablo Berger MD in [place] 11/19/2020 13:18
[2020-11-19 13:10] LABS: Erythrocyte Sedimentation Rate 65 mm/hr (0-20)
--- NOTE | 2020-11-19 13:43 | P.CONPHA_ITS ---
- Pharmacy Consult Date: 11/19/20 Time: 13:43 Referring provider: VALERIE MELGAR Reason for Consult:: Pharmacokinetic dosing service Objective: Patient: Floor: Age: 75 yo Serum creatinine: 1.4 mg/dL Height: 68.1 Inches Weight (kg): 123 Assessment: IBW (kg): 68.63 Dosing wt(kg): 90.4 Estimated Creatinine clearance (ml/min): 44.9 CRCL method: Cockcroft and Gault using ibw(default). Drug selected: Tobramycin Loading dose (mg): 0 Vd (liters): 31.6 (factor used: 0.35 L/kg) Faraz (hr-1): 0.146 Half life (hrs): 4.75 Recommended dose: 480 mg Interval: 24 hrs Infusion time (hrs): 1 Predicted peak (mcg/mL): 14.6 Predicted trough (mcg/mL): 0.51 Recommendations: Give Tobramycin 480 mg q 24 hrs with an expected Cpeak of 14.6 mcg/ml and an expected Ctrough of 0.51 mcg/ml Thank you for the consult, will continue to follow. ADITYA MONTEZ PHARMD Allergies and ADEs:: Allergies Allergy/AdvReac Type Severity Reaction Status Date / Time Antihistamines - Alkylamine Allergy Mild MADE SKIN Verified 07/09/20 11:33 [ANTIHISTAMINES - ALKYLAMINE] FEEL LIKE ON FIRE NSAIDS (Non-Steroidal AdvReac Severe kidney Verified 07/09/20 11:33 Anti-Inflamma failure Home Medications:: Home Medications Medication Instructions Recorded Confirmed Type fluticasone propionate 50 1 spr INTRANASAL HS PRN 60 Days #16 01/17/18 07/09/20 History mcg/actuation nasal spray,suspension Tamsulosin HCl [Flomax 0.4mg 0.8 mg PO HS 04/04/18 07/09/20 History capsule] Aspirin [Aspirin 81mg EC Tab] 81 mg PO DAILY 01/17/20 07/09/20 History Famotidine [Pepcid 20mg Tablet] 20 mg PO DAILY 03/14/20 07/09/20 History carvediloL [Coreg 12.5mg 12.5 mg PO BID 03/18/20 07/09/20 History Tablet] empagliflozin 10 mg tablet 10 mg PO tab 07/09/20 07/09/20 History Height: 1.73 m Weight: 123.377 kg Laboratory Results:: Laboratory Results - last 24 hr 11/19/20 12:20: WBC 10.2, RBC 4.11 L, Hgb 12.1 L, Hct 37.9 L, MCV 92.2, MCH 29.3, MCHC 31.8, RDW 16.2, Plt Count 437 H, MPV 6.7 L, Neut % (Auto) 60.7, Lymph % (Auto) 25.8, [place] % (Auto) 7.0, Eos % (Auto) 5.4, Baso % (Auto) 1.0, Neut # (Auto) 6.2, Lymph # (Auto) 2.6, [place] # (Auto) 0.7, Eos # (Auto) 0.6 H, Baso # (Auto) 0.1 11/19/20 12:20: ESR 65 H 11/19/20 12:20: Sodium 141, Potassium 4.8, Chloride 113 H, Carbon Dioxide 19 L, Anion Gap 13.8, BUN 26 H, Creatinine 1.40 H, Estimated Creat Clear 45, Estimated GFR 50 L, Est GFR ( Amer) 60, Glucose 108 H, Calcium 8.3 L, C-Reactive Protein 35.1 H Medical History: Reports:: BPH, Diabetes Mellitus Type 2, Hypertension, Peripheral Artery Disease Denies:: Cancer, Diabetes Mellitus Type 1, MRSA
[2020-11-19 14:00] VITALS: BP 143/62; PULSE 68; RESP 20; TEMP 36.9; O2SAT 95
[2020-11-19 14:30] VITALS: BP 135/74; PULSE 68; RESP 20; TEMP 36.9; O2SAT 95
[2020-11-19 15:00] VITALS: BP 144/74; PULSE 78; RESP 20; TEMP 36.9; O2SAT 95
[2020-11-19 16:00] VITALS: BP 144/74; PULSE 68; RESP 20; TEMP 36.7; O2SAT 95
[2020-11-19 17:44] LABS: Tobramycin,Peak 14.7 ug/ml (5.0-12.0)
== END 2020-11-19 16:00 | disposition home or self-care (01) ==
LOC: INF 13:00
PROVIDERS: Visit Provider Nurse Practitioner Family
DX: A49.8 Other bacterial infections of unspecified site (principal); L03.116 Cellulitis of left lower limb
CPT/HCPCS: 36569; 71045; 80048; 80200; 85025; 85651; 86140; 96365; 96366; 96367; C1751; J1335

== ENCOUNTER 2020-11-20 12:57 | Outpatient (CLI) | payer MEDICARE, OTHER, SELFPAY ==
[2020-11-20 13:00] VITALS: BMI 41.3
[2020-11-20 13:22] VITALS: BP 126/60; PULSE 61; RESP 18; TEMP 36.2; O2SAT 98
[2020-11-20 13:36] LABS: Basophils # 0.1 K/mm3 (0-0.2); Basophils % 0.8 % (0.1-2.0); Eosinophils # 0.6 K/mm3 (0.0-0.4); Eosinophils % 5.6 % (0.1-12.0); Hematocrit 37.6 % (42.0-52.0); Hemoglobin 12.1 g/dL (14.1-18.0); Lymphocytes # 2.6 K/mm3 (0.7-4.5); Lymphocytes % 25.6 % (10-50); Mean Corpuscular HGB Conc 32.1 g/dL (31.8-35.4); Mean Corpuscular Hemoglobin 29.7 pg (27.0-31.2); Mean Corpuscular Volume 92.4 fl (80-94); Mean Platelet Volume 7.4 fl (7.4-10.4); Monocytes # 0.8 K/mm3 (0.1-1.0); Monocytes % 7.6 % (1.7-9.3); Neutrophils % 60.3 % (37.0-80.0); Platelet Count 440 K/mm3 (142-424); Red Blood Count 4.07 M/mm3 (4.60-6.20); Red Cell Distribution Width 16.2 % (11.5-17.5)
[2020-11-20 13:46] LABS: Chloride 110 mmol/L (98-107); Sodium 139 mmol/L (136-145)
[2020-11-20 13:47] LABS: Potassium 4.9 mmoL/L (3.5-5.1)
[2020-11-20 13:49] LABS: Blood Urea Nitrogen 23 mg/dl (9-20); Creatinine Clearance Estimated 45 mL/min (50-200); Estimated Glomerular Filt Rate 50 ml/min (>60); GFR (African American) 60 ML/MIN (>60)
[2020-11-20 13:50] LABS: Anion Gap 13.9 mEq/L (5-15); Calcium 8.2 mg/dl (8.4-10.2); Carbon Dioxide 20 mmol/L (22.0-30.0); Glucose 104 mg/dl (74-100)
[2020-11-20 13:52] VITALS: BP 131/61; PULSE 65; RESP 18; O2SAT 98
[2020-11-20 13:56] LABS: C-Reactive Protein 30.5 mg/L (0-4)
[2020-11-20 14:10] LABS: Tobramycin,Trough 1.6 ug/ml (0-2.0)
[2020-11-20 14:19] VITALS: BP 146/66; PULSE 62; RESP 18; O2SAT 97
--- NOTE | 2020-11-20 14:22 | HMH.PHACONS ---
- Pharmacy Consult Date: 11/20/20 Time: 14:22 Referring provider: DR. MATIAS/BERTRAM MELGAR Reason for Consult:: TOBRAMYCIN LEVELS Allergies and ADEs:: Allergies Allergy/AdvReac Type Severity Reaction Status Date / Time Antihistamines - Alkylamine Allergy Mild MADE SKIN Verified 07/09/20 11:33 [ANTIHISTAMINES - ALKYLAMINE] FEEL LIKE ON FIRE NSAIDS (Non-Steroidal AdvReac Severe kidney Verified 07/09/20 11:33 Anti-Inflamma failure Home Medications:: Home Medications Medication Instructions Recorded Confirmed Type fluticasone propionate 50 1 spr INTRANASAL HS PRN 60 Days #16 01/17/18 07/09/20 History mcg/actuation nasal spray,suspension Tamsulosin HCl [Flomax 0.4mg 0.8 mg PO HS 04/04/18 07/09/20 History capsule] Aspirin [Aspirin 81mg EC Tab] 81 mg PO DAILY 01/17/20 07/09/20 History Famotidine [Pepcid 20mg Tablet] 20 mg PO DAILY 03/14/20 07/09/20 History carvediloL [Coreg 12.5mg 12.5 mg PO BID 03/18/20 07/09/20 History Tablet] empagliflozin 10 mg tablet 10 mg PO tab 07/09/20 07/09/20 History Height: 1.73 m Weight: 123.377 kg Laboratory Results:: Laboratory Results - last 24 hr 11/20/20 13:11: WBC 10.0, RBC 4.07 L, Hgb 12.1 L, Hct 37.6 L, MCV 92.4, MCH 29.7, MCHC 32.1, RDW 16.2, Plt Count 440 H, MPV 7.4, Neut % (Auto) 60.3, Lymph % (Auto) 25.6, [place] % (Auto) 7.6, Eos % (Auto) 5.6, Baso % (Auto) 0.8, Neut # (Auto) 6.0, Lymph # (Auto) 2.6, Jenkins # (Auto) 0.8, Eos # (Auto) 0.6 H, Baso # (Auto) 0.1 11/20/20 13:11: Sodium 139, Potassium 4.9, Chloride 110 H, Carbon Dioxide 20 L, Anion Gap 13.9, BUN 23 H, Creatinine 1.40 H, Estimated Creat Clear 45, Estimated GFR 50 L, Est GFR ( Amer) 60, Glucose 104 H, Calcium 8.2 L, C-Reactive Protein 30.5 H, Tobramycin Trough 1.6 Medical History: Reports:: BPH, Diabetes Mellitus Type 2, Hypertension, Peripheral Artery Disease Denies:: Cancer, Diabetes Mellitus Type 1, MRSA Assessment and Plan - Assessment and plan all Dx Assessment and Plan for all problems:: TOBRAMYCIN PEAK: 14.7 TOBRAMYCIN TROUGH: 1.6 BASED ON LEVELS AND PATIENT FACTORS, RECOMMEND CHANGING TOBRAMYCIN 480 MG FROM Q24H TO Q48H. PHARMACY WILL CONTINUE TO MONITOR AND ADJUST APPROPRIATE.
[2020-11-20 14:47] LABS: Erythrocyte Sedimentation Rate > 140 mm/hr (0-20)
== END 2020-11-20 14:20 | disposition home or self-care (01) ==
LOC: INF 12:57
PROVIDERS: PCP Internal Medicine Adolescent Medicine; Visit Provider Nurse Practitioner Family
DX: L03.116 Cellulitis of left lower limb (principal)
CPT/HCPCS: 80048; 80200; 85025; 85651; 86140; 96365; J1335

== ENCOUNTER 2020-11-21 13:00 | Outpatient (CLI) | payer MEDICARE, OTHER, SELFPAY ==
[2020-11-21 13:25] VITALS: BP 129/59; PULSE 67; RESP 18; TEMP 36.3; O2SAT 99
[2020-11-21 14:00] VITALS: BP 143/64; PULSE 61; RESP 18
[2020-11-21 14:20] VITALS: BP 134/60; PULSE 64; RESP 18
[2020-11-21 15:20] VITALS: BP 147/65; PULSE 62; RESP 18
== END 2020-11-21 15:30 | disposition home or self-care (01) ==
LOC: INF 13:06
PROVIDERS: Visit Provider Internal Medicine Adolescent Medicine
DX: L03.116 Cellulitis of left lower limb (principal); A49.8 Other bacterial infections of unspecified site
CPT/HCPCS: 96365; 96367; J1335

== ENCOUNTER 2020-11-22 13:03 | Outpatient (CLI) | payer MEDICARE, OTHER, SELFPAY ==
[2020-11-22 13:32] VITALS: BP 153/72; PULSE 74; RESP 18; O2SAT 99
[2020-11-22 14:02] VITALS: BP 150/75; PULSE 75; RESP 18; O2SAT 99
[2020-11-22 14:20] VITALS: BP 149/78; PULSE 76; RESP 18; O2SAT 99
== END 2020-11-22 14:20 | disposition home or self-care (01) ==
LOC: INF 13:03
PROVIDERS: Visit Provider Nurse Practitioner Family
DX: L03.116 Cellulitis of left lower limb (principal); A49.8 Other bacterial infections of unspecified site
CPT/HCPCS: 96365; J1335

== ENCOUNTER → 2020-11-23 13:14 | Outpatient (CLI) | payer MEDICARE, OTHER, SELFPAY ==
[2020-11-23 13:30] VITALS: BP 132/52; PULSE 66; RESP 20; TEMP 36.6; O2SAT 97
[2020-11-23 15:10] VITALS: BP 132/61; PULSE 64; RESP 20; TEMP 36.8; O2SAT 99
[2020-11-23 15:15] VITALS: BP 132/61; PULSE 64; RESP 20
== END ==
PROVIDERS: PCP Nurse Practitioner Family; Visit Provider Internal Medicine Adolescent Medicine
DX: A49.8 Other bacterial infections of unspecified site (principal); L03.116 Cellulitis of left lower limb
CPT/HCPCS: 96365; 96366; J1335

== ENCOUNTER → 2020-11-24 12:44 | Outpatient (CLI) | payer MEDICARE, OTHER, SELFPAY ==
[2020-11-24 12:44] VITALS: BP 127/63; PULSE 83; RESP 18; TEMP 36.4; O2SAT 96
== END ==
PROVIDERS: PCP Internal Medicine Adolescent Medicine; Visit Provider Internal Medicine Adolescent Medicine
DX: L03.116 Cellulitis of left lower limb (principal); A49.8 Other bacterial infections of unspecified site
CPT/HCPCS: 96365; J1335

== ENCOUNTER 2020-11-25 13:00 | Outpatient (CLI) | payer MEDICARE, OTHER, SELFPAY ==
[2020-11-25 13:16] LABS: Chloride 108 mmol/L (98-107); Potassium 4.5 mmoL/L (3.5-5.1); Sodium 140 mmol/L (136-145)
[2020-11-25 13:19] LABS: Blood Urea Nitrogen 26 mg/dl (9-20); Estimated Glomerular Filt Rate 46 ml/min (>60); GFR (African American) 55 ML/MIN (>60)
[2020-11-25 13:20] LABS: Anion Gap 14.5 mEq/L (5-15); Calcium 8.2 mg/dl (8.4-10.2); Carbon Dioxide 22 mmol/L (22.0-30.0); Glucose 124 mg/dl (74-100)
[2020-11-25 13:32] LABS: Tobramycin,Trough < 0.6 ug/ml (0-2.0)
--- NOTE | 2020-11-25 13:45 | HMH.PHACONS ---
- Pharmacy Consult Date: 11/25/20 Time: 13:45 Referring provider: BERTRAM MELGAR Reason for Consult:: TOBRAMYCIN TROUGH LEVEL Allergies and ADEs:: Allergies Allergy/AdvReac Type Severity Reaction Status Date / Time Antihistamines - Alkylamine Allergy Mild MADE SKIN Verified 07/09/20 11:33 [ANTIHISTAMINES - ALKYLAMINE] FEEL LIKE ON FIRE NSAIDS (Non-Steroidal AdvReac Severe kidney Verified 07/09/20 11:33 Anti-Inflamma failure Home Medications:: Home Medications Medication Instructions Recorded Confirmed Type fluticasone propionate 50 1 spr INTRANASAL HS PRN 60 Days #16 01/17/18 11/22/20 History mcg/actuation nasal spray,suspension Tamsulosin HCl [Flomax 0.4mg 0.8 mg PO HS 04/04/18 11/22/20 History capsule] Aspirin [Aspirin 81mg EC Tab] 81 mg PO DAILY 01/17/20 11/22/20 History Famotidine [Pepcid 20mg Tablet] 20 mg PO DAILY 03/14/20 11/22/20 History carvediloL [Coreg 12.5mg 12.5 mg PO BID 03/18/20 11/22/20 History Tablet] empagliflozin 10 mg tablet 10 mg PO DAILY tab 07/09/20 11/22/20 History Height: 1.72 m Weight: 123 kg Laboratory Results:: Laboratory Results - last 24 hr 11/25/20 13:05: Tobramycin Trough < 0.6 11/25/20 13:05: Sodium 140, Potassium 4.5, Chloride 108 H, Carbon Dioxide 22, Anion Gap 14.5, BUN 26 H, Creatinine 1.50 H, Estimated GFR 46 L, Est GFR ( Amer) 55 L, Glucose 124 H, Calcium 8.2 L Medical History: Reports:: BPH, Diabetes Mellitus Type 2, Hypertension, Peripheral Artery Disease, Peripheral Vascular Disease Denies:: Cancer, Diabetes Mellitus Type 1, MRSA Assessment and Plan - Assessment and plan all Dx Assessment and Plan for all problems:: BASED ON PATIENT FACTORS AND TOBRAMYCIN TROUGH LEVEL, CONTINUE CURRENT DOSE OF 480MG IV EVERY 48 HOURS. PHARMACY WILL CONTINUE TO MONITOR AND WILL ADJUST DOSE APPROPRIATE. -ADITYA MONTEZ, MARTINEZD
[2020-11-25 14:02] VITALS: BP 144/60; PULSE 60; RESP 18; TEMP 36.4; O2SAT 98
[2020-11-25 14:50] VITALS: BP 138/65; PULSE 64; RESP 18; O2SAT 98
[2020-11-25 15:30] VITALS: BP 146/72; PULSE 68; RESP 16; TEMP 36.4; O2SAT 97
--- NOTE | 2020-11-26 08:42 | HMH.ACPN ---
Internal Medicine - PN: Subj *Date: 11/26/20 *Time: 08:42 Exam Vital signs and Labs for Last 24 Hours: Temp Pulse Resp BP Pulse Ox 97.6 F 68 16 146/72 H 97 11/25/20 15:30 11/25/20 15:30 11/25/20 15:30 11/25/20 15:30 11/25/20 15:30 Laboratory Results - last 24 hr 11/25/20 13:05: Tobramycin Trough < 0.6 11/25/20 13:05: Sodium 140, Potassium 4.5, Chloride 108 H, Carbon Dioxide 22, Anion Gap 14.5, BUN 26 H, Creatinine 1.50 H, Estimated GFR 46 L, Est GFR ( Amer) 55 L, Glucose 124 H, Calcium 8.2 L I & O for Last 24 hours: Intake & Output 11/23/20 11/24/20 11/25/20 11/26/20 23:59 23:59 23:59 23:59 Intake Total 180 / 180 Balance 180 / 180 Weight 123 kg The patient's infection will respond to the chosen ABx?: Yes Is the patient receiving the right drug, dose, and route?: Yes Could a more targeted ABx be ordered?: No (TREATING PSEUDOMONAS, CX SENSITIVE)
== END 2020-11-25 15:40 | disposition home or self-care (01) ==
LOC: INF 13:03
PROVIDERS: PCP Internal Medicine Adolescent Medicine; Visit Provider Internal Medicine Adolescent Medicine
DX: L03.116 Cellulitis of left lower limb (principal); A49.8 Other bacterial infections of unspecified site
CPT/HCPCS: 80048; 80200; 96365; 96367; J1335

== ENCOUNTER → 2020-11-26 13:10 | Outpatient (CLI) | payer MEDICARE, OTHER, SELFPAY ==
[2020-11-26 13:12] VITALS: BMI 41.3
[2020-11-26 13:32] VITALS: BP 130/61; PULSE 70; RESP 18; TEMP 36.6; O2SAT 98
[2020-11-26 13:37] LABS: Basophils # 0.1 K/mm3 (0-0.2); Basophils % 0.9 % (0.1-2.0); Eosinophils # 0.7 K/mm3 (0.0-0.4); Eosinophils % 6.8 % (0.1-12.0); Hematocrit 37.9 % (42.0-52.0); Hemoglobin 12.1 g/dL (14.1-18.0); Lymphocytes # 2.6 K/mm3 (0.7-4.5); Mean Corpuscular HGB Conc 31.9 g/dL (31.8-35.4); Mean Corpuscular Hemoglobin 29.3 pg (27.0-31.2); Mean Corpuscular Volume 91.8 fl (80-94); Mean Platelet Volume 6.8 fl (7.4-10.4); Monocytes # 0.6 K/mm3 (0.1-1.0); Neutrophils % 60.3 % (37.0-80.0); Platelet Count 355 K/mm3 (142-424); Red Blood Count 4.13 M/mm3 (4.60-6.20); White Blood Count 9.9 K/mm3 (4.8-10.8)
[2020-11-26 13:51] LABS: C-Reactive Protein 50.1 mg/L (0-4)
[2020-11-26 14:17] LABS: Erythrocyte Sedimentation Rate 19 mm/hr (0-20)
[2020-11-26 14:20] VITALS: BP 142/70; PULSE 68; RESP 16; TEMP 36.6; O2SAT 98
== END ==
PROVIDERS: Visit Provider Nurse Practitioner Family
DX: L03.116 Cellulitis of left lower limb (principal)
CPT/HCPCS: 85025; 85651; 86140; 96365; J1335

== ENCOUNTER 2020-11-27 13:15 | Outpatient (CLI) | payer MEDICARE, OTHER, SELFPAY ==
[2020-11-27 13:30] VITALS: BP 125/65; PULSE 67; RESP 18; TEMP 35.7; O2SAT 98
[2020-11-27 14:00] VITALS: BP 125/59; PULSE 60; RESP 18
[2020-11-27 14:20] VITALS: BP 137/66; PULSE 61; RESP 18
[2020-11-27 15:35] VITALS: BP 130/65; PULSE 66; RESP 18
== END 2020-11-27 15:55 | disposition home or self-care (01) ==
LOC: INF 13:23
PROVIDERS: Visit Provider Nurse Practitioner Family
DX: L03.116 Cellulitis of left lower limb (principal); A49.8 Other bacterial infections of unspecified site
CPT/HCPCS: 96365; 96367; J1335

== ENCOUNTER 2020-11-28 13:03 | Outpatient (CLI) | payer MEDICARE, OTHER, SELFPAY ==
[2020-11-28 13:13] VITALS: BP 141/58; PULSE 62; RESP 18; TEMP 36.2; O2SAT 98
[2020-11-28 14:05] VITALS: BP 125/57; PULSE 59; RESP 18; TEMP 36.4; O2SAT 98
== END 2020-11-28 14:10 | disposition home or self-care (01) ==
LOC: INF 13:03
PROVIDERS: Visit Provider Internal Medicine Medical Oncology
DX: L03.116 Cellulitis of left lower limb (principal); A49.8 Other bacterial infections of unspecified site
CPT/HCPCS: 96365; J1335

== ENCOUNTER 2020-11-29 13:05 | Outpatient (CLI) | payer MEDICARE, OTHER, SELFPAY ==
[2020-11-29 13:20] VITALS: BP 136/59; PULSE 60; RESP 18; TEMP 36.2; O2SAT 98
[2020-11-29 15:15] VITALS: BP 141/63; PULSE 62; RESP 18
== END 2020-11-29 15:30 | disposition home or self-care (01) ==
LOC: INF 13:07
PROVIDERS: Visit Provider Internal Medicine Medical Oncology
DX: L03.116 Cellulitis of left lower limb (principal); A49.8 Other bacterial infections of unspecified site
CPT/HCPCS: 96365; 96367; J1335

== ENCOUNTER → 2020-11-30 13:01 | Outpatient (CLI) | payer MEDICARE, OTHER, SELFPAY ==
[2020-11-30 13:23] VITALS: BP 135/64; PULSE 67; RESP 16; TEMP 36.9; O2SAT 95
== END ==
PROVIDERS: PCP Internal Medicine Adolescent Medicine; Visit Provider Internal Medicine Medical Oncology
DX: L03.116 Cellulitis of left lower limb (principal); A49.8 Other bacterial infections of unspecified site
CPT/HCPCS: 96365; J1335

== ENCOUNTER 2020-12-01 12:47 | Outpatient (CLI) | payer MEDICARE, OTHER, SELFPAY ==
[2020-12-01 13:27] LABS: Anion Gap 11.2 mEq/L (5-15); Blood Urea Nitrogen 19 mg/dl (9-20); Carbon Dioxide 22 mmol/L (22.0-30.0); Chloride 111 mmol/L (98-107); Estimated Glomerular Filt Rate 50 ml/min (>60); GFR (African American) 60 ML/MIN (>60); Glucose 124 mg/dl (74-100); Potassium 4.2 mmoL/L (3.5-5.1); Sodium 140 mmol/L (136-145)
[2020-12-01 13:30] VITALS: BP 135/78; PULSE 78; RESP 18; O2SAT 96
[2020-12-01 13:32] LABS: Tobramycin,Trough < 0.6 ug/ml (0-2.0)
--- NOTE | 2020-12-01 13:46 | HMH.PHACONS ---
- Pharmacy Consult Date: 12/01/20 Time: 13:46 Referring provider: BERTRAM MELGAR APRN Reason for Consult:: TOBRAMYCIN TROUGH LEVEL Allergies and ADEs:: Allergies Allergy/AdvReac Type Severity Reaction Status Date / Time Antihistamines - Alkylamine Allergy Mild MADE SKIN Verified 11/26/20 13:55 [ANTIHISTAMINES - ALKYLAMINE] FEEL LIKE ON FIRE NSAIDS (Non-Steroidal AdvReac Severe kidney Verified 11/26/20 13:55 Anti-Inflamma failure Home Medications:: Home Medications Medication Instructions Recorded Confirmed Type fluticasone propionate 50 1 spr INTRANASAL HS PRN 60 Days #16 01/17/18 11/29/20 History mcg/actuation nasal spray,suspension Tamsulosin HCl [Flomax 0.4mg 0.8 mg PO HS 04/04/18 11/29/20 History capsule] Aspirin [Aspirin 81mg EC Tab] 81 mg PO DAILY 01/17/20 11/29/20 History Famotidine [Pepcid 20mg Tablet] 20 mg PO DAILY 03/14/20 11/29/20 History carvediloL [Coreg 12.5mg 12.5 mg PO BID 03/18/20 11/29/20 History Tablet] empagliflozin 10 mg tablet 10 mg PO DAILY tab 07/09/20 11/29/20 History Height: 1.73 m Weight: 123 kg Laboratory Results:: Laboratory Results - last 24 hr 12/01/20 13:10: Tobramycin Trough < 0.6 12/01/20 13:10: Sodium 140, Potassium 4.2, Chloride 111 H, Carbon Dioxide 22, Anion Gap 11.2, BUN 19, Creatinine 1.40 H, Estimated GFR 50 L, Est GFR ( Amer) 60, Glucose 124 H, Calcium 8.0 L Medical History: Reports:: BPH, Diabetes Mellitus Type 2, Hypertension, Peripheral Artery Disease, Peripheral Vascular Disease Denies:: Cancer, Diabetes Mellitus Type 1, MRSA Assessment and Plan - Assessment and plan all Dx Assessment and Plan for all problems:: BASED ON TOBRAMYCIN TROUGH LEVEL AND PATIENT FACTORS, RECOMMEND CONTINUING TOBRAMYCIN 480 MG IV Q48H.
== END 2020-12-01 15:15 | disposition home or self-care (01) ==
LOC: INF 12:47
PROVIDERS: PCP Internal Medicine Adolescent Medicine; Visit Provider Internal Medicine Medical Oncology
DX: L03.116 Cellulitis of left lower limb (principal); A49.8 Other bacterial infections of unspecified site
CPT/HCPCS: 80048; 80200; 96365; 96367; J1335

== ENCOUNTER 2020-12-02 13:07 | Outpatient (CLI) | payer MEDICARE, OTHER, SELFPAY ==
[2020-12-02 13:35] VITALS: BP 130/70; PULSE 57; RESP 18; TEMP 36.3; O2SAT 96
[2020-12-02 14:30] VITALS: BP 132/70; PULSE 60; RESP 18; O2SAT 97
== END 2020-12-02 14:30 | disposition home or self-care (01) ==
LOC: INF 13:07
PROVIDERS: PCP Internal Medicine Adolescent Medicine; Visit Provider Nurse Practitioner Family
DX: L03.116 Cellulitis of left lower limb (principal); A49.8 Other bacterial infections of unspecified site
CPT/HCPCS: 96365; J1335

== ENCOUNTER 2020-12-04 13:00 | Outpatient (CLI) | payer MEDICARE, OTHER, SELFPAY | END 2020-12-04 13:20 | disposition home or self-care (01) | LOC: INF 13:05 | PROVIDERS: Visit Provider Nurse Practitioner Family | DX: L03.116 Cellulitis of left lower limb (principal); A49.8 Other bacterial infections of unspecified site | CPT/HCPCS: G0463 ==

== ENCOUNTER 2021-02-21 15:18 | Emergency (ER) | payer MEDICARE, OTHER, SELFPAY ==
[2021-02-21 15:21] VITALS: BP 161/83; PULSE 88; RESP 16; TEMP 36.8; O2SAT 97; BMI 38.6
--- NOTE | 2021-02-21 15:35 | HMH.EDGENADL ---
ED Disposition Clinical Impression: Nausea Disposition: Home, Self-Care Condition on Discharge: Good Referrals: Luis Marino MD [Primary Care Provider] - 3 days Time of Disposition: 19:14 - Critical Care Critical Care Time: No Attestation: On 02/21/21, the high probability of a clinically significant, sudden or life threatening deterioration of the following system(s) required my full and direct attention, intervention and personal management. The time I documented below is in addition to time spent performing reported procedures but includes the following listed in this critical care notation. Medical Decision Making - Medical Records Medical records reviewed: Yes: I reviewed the patient's medical records. - Real Inquiry Pt receiving controlled substance: No Vital Signs: 02/21/21 15:21 02/21/21 18:47 Temperature 98.3 F Temperature Source Oral Pulse Rate 76 Pulse Rate [Right] 88 Respiratory Rate 16 17 Blood Pressure 134/71 Blood Pressure [Right Arm] 161/83 H Blood Pressure Mean [Right Arm] 109 02 Sat by Pulse Oximetry 97 98 Oxygen Delivery Method Room Air - Lab Data Lab results reviewed: Yes: I reviewed the patient's lab results. Lab Results 02/21/21 15:45: WBC 12.7 H, RBC 5.17, Hgb 15.5, Hct 45.8, MCV 88.6, MCH 29.9, MCHC 33.8, RDW 13.6, Plt Count 470 H, MPV 6.9 L, Neut % (Auto) 77.7, Lymph % (Auto) 12.4, [place] % (Auto) 7.3, Eos % (Auto) 2.0, Baso % (Auto) 0.5, Neut # (Auto) 9.8 H, Lymph # (Auto) 1.6, [place] # (Auto) 0.9, Eos # (Auto) 0.3, Baso # (Auto) 0.1 02/21/21 15:45: Sodium 139, Potassium 4.1, Chloride 100, Carbon Dioxide 23, Anion Gap 20.1 H, BUN 36 H, Creatinine 1.60 H, Estimated Creat Clear 66, Estimated GFR 42 L, Est GFR ( Amer) 51 L, Glucose 116 H, Calcium 8.5, Troponin I < 0.01 02/21/21 15:45: NT-Pro-B Natriuret Pep 319 H Result diagrams: 02/21/21 15:45 06/25/21 15:45 Orders (Tests/Meds): ED MEDICATIONS Generic Name Dose Route Start Last Admin Trade Name Freq PRN Reason Stop Dose Admin Lactated Ringer's 1,000 mls @ 999 mls/hr 02/21/21 17:15 02/21/21 17:09 Lactated Ringer's 1000 Ml Bag IV 02/21/21 18:15 999 mls/hr .Q1H1M TAWNYA Administration Discontinued Medications Generic Name Dose Route Start Last Admin Trade Name Freq PRN Reason Stop Dose Admin Ondansetron HCl 4 mg 02/21/21 18:27 02/21/21 18:37 Ondansetron 4mg/2ml Vial IV 02/21/21 18:28 4 mg ONCE ONE Administration ORDERS Category Date Time Status Blood Culture Stat Micro 02/21/21 16:00 Received - Radiology Data #1 Image(s): Chest Image Reviewed: Yes I have reviewed radiologist's interpretation Preliminary Findings: Normal/NAD - ECG Data Tracing #1 I reviewed this ECG and interpreted as documented below: 89 bpm, normal sinus rhythm, no ST elevation or depression, normal intervals, no ectopy. ECG initial impression date: 02/21/21 ECG initial impression time: 15:50 Medical Decision Narrative: 75yo M evaluated for intermittent nausea and vomiting. Patient no acute distress on initial evaluation. Physical exam is benign. Patient's wound is undressed and unremarkable. Laboratory studies, EKG, chest x-ray obtained. Largely unremarkable work-up. Patient p.o. challenge and tolerates water but had some belching afterward. Patient treated with Zofran. Patient stable. He had no episodes of vomiting. He is appropriate for discharge home. Encouraged to follow-up with his PCP on Wednesday. Given return to emergency department parameters. His wound was redressed with a nonstick dressing. Patient voiced understanding agreement plan. General Adult HPI - General Stated complaint: wound drainage, V/D lethargy, SOB Time Seen by Provider: 02/21/21 15:35 Mode of Arrival: Wheelchair - History of Present Illness HPI narrative: 75yo M is wheeled to the emergency department by his wound care nurse with concern for nausea and vomiting, fatigue. Patient reports he h
--- NOTE | 2021-02-21 15:36 | XR_ITS ---
PROCEDURE: XR CHEST PORTABLE CLINICAL HISTORY: sob Shortness of breath COMPARISON: CR XR CHEST 2V from 03/14/2020 CR XR CHEST PORTABLE PICC PLAC from 03/15/2020 CR XR CHEST PORTABLE from 11/19/2020 FINDINGS: The cardiomediastinal silhouette and pulmonary vascularity are within normal limits. The lungs are clear without infiltrates, suspicious nodules, or pleural effusions. No acute bony abnormalities. IMPRESSION: No acute findings. Dictated by: Pablo Berger MD 02/21/2021 16:14 Pablo Berger MD in [facility] 02/21/2021 16:14
--- NOTE | 2021-02-21 15:49 | ECG_ITS ---
APPROVED REPORT Exam: Resting ECG HR:89 bpm ECG Measurements Heart Rate 89 AXES NJ 198 P 64 QRSd 88 QRS -13 QT 368 T 58 QTc 447 Conclusion Normal sinus rhythm Normal ECG Electronically signed by : Gasper Montana, 02/22/2021 21:28:28
[2021-02-21 16:06] LABS: Basophils # 0.1 K/mm3 (0-0.2); Basophils % 0.5 % (0.1-2.0); Eosinophils # 0.3 K/mm3 (0.0-0.4); Hematocrit 45.8 % (42.0-52.0); Hemoglobin 15.5 g/dL (14.1-18.0); Lymphocytes # 1.6 K/mm3 (0.7-4.5); Lymphocytes % 12.4 % (10-50); Mean Corpuscular HGB Conc 33.8 g/dL (31.8-35.4); Mean Corpuscular Hemoglobin 29.9 pg (27.0-31.2); Mean Corpuscular Volume 88.6 fl (80-94); Mean Platelet Volume 6.9 fl (7.4-10.4); Monocytes # 0.9 K/mm3 (0.1-1.0); Monocytes % 7.3 % (1.7-9.3); Neutrophils # 9.8 K/mm3 (1.8-7.8); Neutrophils % 77.7 % (37.0-80.0); Platelet Count 470 K/mm3 (142-424); Red Blood Count 5.17 M/mm3 (4.60-6.20); Red Cell Distribution Width 13.6 % (11.5-17.5); White Blood Count 12.7 K/mm3 (4.8-10.8)
[2021-02-21 16:21] LABS: Anion Gap 20.1 mEq/L (5-15); Blood Urea Nitrogen 36 mg/dl (9-20); Calcium 8.5 mg/dl (8.4-10.2); Carbon Dioxide 23 mmol/L (22.0-30.0); Chloride 100 mmol/L (98-107); Creatinine Clearance Estimated 66 mL/min (50-200); Estimated Glomerular Filt Rate 42 ml/min (>60); GFR (African American) 51 ML/MIN (>60); Glucose 116 mg/dl (74-100); Potassium 4.1 mmoL/L (3.5-5.1); Sodium 139 mmol/L (136-145)
[2021-02-21 16:31] LABS: NT Pro Brain Natriuretic Pep. 319 pg/mL (0-125)
[2021-02-21 16:46] LABS: Troponin I < 0.01 ng/ml (0.00-0.034)
--- NOTE | 2021-02-21 17:06 | PC.NURSE ---
GIVING PATIENT PO CHALLENGE AT THIS TIME PER ER PHYSICIAN VERBAL ORDERS
--- NOTE | 2021-02-21 17:50 | PC.NURSE ---
ER Physician verbally ordered Nitin HEALY to wrap patients left ankle with a non-adhesive dressing
[2021-02-21 18:47] VITALS: BP 134/71; PULSE 76; RESP 17; O2SAT 98
[2021-02-21 19:20] VITALS: BP 135/69; PULSE 71; RESP 16; TEMP 36.7; O2SAT 98
== END 2021-02-21 19:26 | disposition home or self-care (01) ==
PROVIDERS: Emergency Provider Family Medicine; PCP Internal Medicine Adolescent Medicine
DX: L03.116 Cellulitis of left lower limb (principal); R11.0 Nausea; E11.9 Type 2 diabetes mellitus without complications; I10 Essential (primary) hypertension; I73.9 Peripheral vascular disease, unspecified; Z96.642 Presence of left artificial hip joint; Z87.891 Personal history of nicotine dependence; Z88.6 Allergy status to analgesic agent; Z79.899 Other long term (current) drug therapy
CPT/HCPCS: 71045; 80048; 83880; 84484; 85025; 87040; 93005; 96365; 96375; 99283; J2405

== ENCOUNTER → 2021-05-23 06:58 | Outpatient (CLI) | payer MEDICARE, OTHER, SELFPAY ==
[2021-05-23 07:20] LABS: Basophils # 0.1 K/mm3 (0-0.2); Basophils % 1.1 % (0.1-2.0); Eosinophils # 0.6 K/mm3 (0.0-0.4); Eosinophils % 6.6 % (0.1-12.0); Hematocrit 43.3 % (42.0-52.0); Hemoglobin 13.3 g/dL (14.1-18.0); Lymphocytes # 2.1 K/mm3 (0.7-4.5); Lymphocytes % 24.3 % (10-50); Mean Corpuscular HGB Conc 30.7 g/dL (31.8-35.4); Mean Corpuscular Hemoglobin 30.4 pg (27.0-31.2); Mean Corpuscular Volume 99.2 fl (80-94); Mean Platelet Volume 7.3 fl (7.4-10.4); Monocytes # 0.6 K/mm3 (0.1-1.0); Monocytes % 6.7 % (1.7-9.3); Neutrophils # 5.3 K/mm3 (1.8-7.8); Neutrophils % 61.2 % (37.0-80.0); Platelet Count 390 K/mm3 (142-424); Red Blood Count 4.36 M/mm3 (4.60-6.20); Red Cell Distribution Width 14.8 % (11.5-17.5); White Blood Count 8.7 K/mm3 (4.8-10.8)
[2021-05-23 07:55] LABS: Alanine Aminotransferase 12 U/L (12-78); Albumin Level 3.8 g/dl (3.5-5.0); Albumin/Globulin Ratio 1.1 (1.1-1.8); Alkaline Phosphatase 100 U/L (38-126); Aspartate Amino Transferase 19 U/L (17-59); Bilirubin,Total 0.4 mg/dl (0.2-1.3); Blood Urea Nitrogen 27 mg/dl (9-20); Calcium 8.8 mg/dl (8.4-10.2); Carbon Dioxide 24 mmol/L (22.0-30.0); Chloride 107 mmol/L (98-107); Chol/HDL Ratio 3.2 (1-3.5); Cholesterol 146 mg/dl (140-200); Estimated Glomerular Filt Rate 54 ml/min (>60); GFR (African American) 65 ML/MIN (>60); Globulin 3.5 g/dL (1.3-3.2); Glucose 114 mg/dl (74-100); HDL Cholesterol 46 mg/dl (40-60); Sodium 141 mmol/L (136-145); Total Protein,Serum 7.3 g/dl (6.3-8.2); Triglycerides 114 mg/dl (30-150); VLDL Cholesterol 23 mg/dL (0-40)
[2021-05-23 08:06] LABS: Direct LDL Cholesterol 66.33 mg/dL (100-129)
== END ==
PROVIDERS: Visit Provider Internal Medicine Adolescent Medicine
DX: E11.69 Type 2 diabetes mellitus with other specified complication (principal); Z86.2 Personal history of diseases of the blood and blood-forming organs and certain disorders involving the immune mechanism
CPT/HCPCS: 36415; 80053; 80061; 83036; 85025

== ENCOUNTER 2021-09-01 20:50 | Emergency (ER) | payer MEDICARE, OTHER, SELFPAY ==
[2021-09-01] VITALS (7 sets, daily range): BP systolic 124–151; BP diastolic 72–78; PULSE 60–72; RESP 16; TEMP 36.6; O2SAT 96–99; BMI 41.8
--- NOTE | 2021-09-01 21:07 | HMH.EDGENADL ---
ED Disposition Clinical Impression: Nausea and vomiting Disposition: Home, Self-Care Condition on Discharge: Good Instructions: DI for Diarrhea and Traveler's Diarrhea -- Adult, DI for Diarrhea and Traveler's Diarrhea -- Child, DI for Nausea -- Adult, DI for Nausea -- Child Prescriptions: Ondansetron [Zofran 4mg ODT] 4 mg PO Q6H PRN #12 tab PRN Reason: Nausea And Vomiting Transmission Status: Pending to [id number] Referrals: Gasper Montana MD [Primary Care Provider] - - Critical Care Critical Care Time: No Attestation: On 09/01/21, the high probability of a clinically significant, sudden or life threatening deterioration of the following system(s) required my full and direct attention, intervention and personal management. The time I documented below is in addition to time spent performing reported procedures but includes the following listed in this critical care notation. Medical Decision Making - Real Inquiry Pt receiving controlled substance: No Vital Signs: 09/01/21 20:49 Temperature Source Oral Pulse Rate [Right Radial] 72 Respiratory Rate 16 Blood Pressure [Right Arm] 124/72 Blood Pressure Mean [Right Arm] 89 Blood Pressure Source [Right Arm] Automatic Cuff Blood Pressure Position [Right Arm] Supine 02 Sat by Pulse Oximetry 99 Oxygen Delivery Method Room Air - Lab Data Lab Results 09/01/21 20:58: WBC 12.9 H, RBC 4.80, Hgb 14.2, Hct 44.2, MCV 92.0, MCH 29.5, MCHC 32.0, RDW 14.3, Plt Count 449 H, MPV 7.4, Neut % (Auto) 77.6, Lymph % (Auto) 14.3, [place] % (Auto) 5.8, Eos % (Auto) 1.5, Baso % (Auto) 0.7, Neut # (Auto) 10.0 H, Lymph # (Auto) 1.9, [place] # (Auto) 0.8, Eos # (Auto) 0.2, Baso # (Auto) 0.1 09/01/21 20:58: Sodium 137, Potassium 4.4, Chloride 103, Carbon Dioxide 26, Anion Gap 12.4, BUN 42 H, Creatinine 1.20, Estimated Creat Clear 51, Estimated GFR 59, Est GFR ( Amer) 71, Glucose 115 H, Calcium 7.9 L, Total Bilirubin 0.6, AST 25, ALT 18, Alkaline Phosphatase 85, Total Protein 7.2, Albumin 3.6, Globulin 3.6 H, Albumin/Globulin Ratio 1.0 L, Lipase 67 09/01/21 20:58: Magnesium 1.9 09/01/21 21:51: Lactate 1.1 Result diagrams: 09/01/21 20:58 09/01/21 20:58 Orders (Tests/Meds): ED MEDICATIONS Generic Name Dose Route Start Last Admin Trade Name Freq PRN Reason Stop Dose Admin Lactated Ringer's 1,000 mls @ 999 mls/hr 09/01/21 21:15 09/01/21 21:12 Lactated Ringer's 1000 Ml Bag IV 09/01/21 22:15 999 mls/hr .Q1H1M TAWNYA Administration Discontinued Medications Generic Name Dose Route Start Last Admin Trade Name Freq PRN Reason Stop Dose Admin Acetaminophen 1,000 mg 09/01/21 21:06 09/01/21 21:11 Acetaminophen 500mg Tab PO 09/01/21 21:07 1,000 mg ONCE ONE Administration Belladonna Alkaloids 60 ml 09/01/21 21:06 09/01/21 21:12 Gi Cocktail 60ml Udc PO 09/01/21 21:07 60 ml ONCE ONE Administration Famotidine 40 mg 09/01/21 21:06 09/01/21 21:11 Famotidine 20mg Tablet PO 09/01/21 21:07 40 mg ONCE ONE Administration Ondansetron HCl 4 mg 09/01/21 21:06 09/01/21 21:11 Ondansetron 4mg/2ml Vial IV 09/01/21 21:07 4 mg ONCE ONE Administration ORDERS Category Date Time Status Rapid PCR Covid and Flu A/B Stat Lab 09/01/21 21:51 Received EKG Request [ECG Request by /Sivakumar] Stat Y 09/01/21 21:11 Ordered Medical Decision Narrative: DDx includes but not limited to gastritis, gerd, pancreatitis, dehydration, electrolyte abnormality. hds, well appearing, nontender abd exam, still passing flatus today. no hx abd surgeries, lower suspicion for bowel obstruction currently. Less likely acute cardiac ischemic event given no chest pain or dyspnea, HDS throughout ED course, ekg nsr without stemi. will obtain labs to further assess. will give meds including zofran, ivf bolus 1 liter lr, tylenol, gi cocktail, famotidine. Labs including cbc, cmp, lipase, lactate, unremarkable for acute and actionable findings. Patient tolerating
[2021-09-01 21:14] LABS: Basophils # 0.1 K/mm3 (0-0.2); Basophils % 0.7 % (0.1-2.0); Eosinophils # 0.2 K/mm3 (0.0-0.4); Eosinophils % 1.5 % (0.1-12.0); Hematocrit 44.2 % (42.0-52.0); Hemoglobin 14.2 g/dL (14.1-18.0); Lymphocytes # 1.9 K/mm3 (0.7-4.5); Lymphocytes % 14.3 % (10-50); Mean Corpuscular Hemoglobin 29.5 pg (27.0-31.2); Mean Platelet Volume 7.4 fl (7.4-10.4); Monocytes # 0.8 K/mm3 (0.1-1.0); Monocytes % 5.8 % (1.7-9.3); Neutrophils % 77.6 % (37.0-80.0); Platelet Count 449 K/mm3 (142-424); Red Cell Distribution Width 14.3 % (11.5-17.5); White Blood Count 12.9 K/mm3 (4.8-10.8)
[2021-09-01 21:19] LABS: Alanine Aminotransferase 18 U/L (12-78); Albumin Level 3.6 g/dl (3.5-5.0); Alkaline Phosphatase 85 U/L (38-126); Anion Gap 12.4 mEq/L (5-15); Aspartate Amino Transferase 25 U/L (17-59); Bilirubin,Total 0.6 mg/dl (0.2-1.3); Blood Urea Nitrogen 42 mg/dl (9-20); Calcium 7.9 mg/dl (8.4-10.2); Carbon Dioxide 26 mmol/L (22.0-30.0); Chloride 103 mmol/L (98-107); Creatinine Clearance Estimated 51 mL/min (50-200); Estimated Glomerular Filt Rate 59 ml/min (>60); GFR (African American) 71 ML/MIN (>60); Globulin 3.6 g/dL (1.3-3.2); Glucose 115 mg/dl (74-100); Lipase 67 U/L (23-300); Magnesium 1.9 mg/dl (1.6-2.3); Potassium 4.4 mmoL/L (3.5-5.1); Sodium 137 mmol/L (136-145); Total Protein,Serum 7.2 g/dl (6.3-8.2)
--- NOTE | 2021-09-01 21:26 | ECG_ITS ---
APPROVED REPORT Exam: Resting ECG HR:65 bpm ECG Measurements Heart Rate 65 AXES SD 194 P 51 QRSd 90 QRS 6 QT 424 T 59 QTc 440 Conclusion Normal sinus rhythm Normal ECG Electronically signed by : Gasper Montana MD 09/05/2021 14:37:33
[2021-09-01 21:58] LABS: Coronavirus 19, PCR Not Detected (NotDetected); Influenza A, PCR Not Detected (NotDetected); Influenza B, PCR Not Detected (NotDetected)
[2021-09-01 22:09] LABS: Lactic Acid 1.1 mmol/L (0.7-2.1)
== END 2021-09-01 23:10 | disposition home or self-care (01) ==
PROVIDERS: Emergency Provider Student in an Organized Health Care Education/Training Program; PCP Internal Medicine Adolescent Medicine
DX: R11.2 Nausea with vomiting, unspecified (principal); R19.7 Diarrhea, unspecified; E11.9 Type 2 diabetes mellitus without complications; I73.9 Peripheral vascular disease, unspecified; I10 Essential (primary) hypertension; Z96.642 Presence of left artificial hip joint; Z20.822 Contact with and (suspected) exposure to COVID-19
CPT/HCPCS: 80053; 83605; 83690; 83735; 85025; 93005; 96366; 96375; 99284; C9803; J2405; U0003; U0005

== ENCOUNTER 2021-09-04 12:53 | Outpatient (CLI) | payer MEDICARE, OTHER, SELFPAY ==
[2021-09-04 12:59] VITALS: BMI 41.8
[2021-09-04 13:15] VITALS: BP 129/67; PULSE 64; RESP 18; TEMP 36.4; O2SAT 100
[2021-09-04 13:23] LABS: Basophils # 0.2 K/mm3 (0-0.2); Eosinophils # 0.2 K/mm3 (0.0-0.4); Eosinophils % 1.3 % (0.1-12.0); Hematocrit 36.7 % (42.0-52.0); Hemoglobin 11.6 g/dL (14.1-18.0); Lymphocytes # 2.4 K/mm3 (0.7-4.5); Lymphocytes % 15.1 % (10-50); Mean Corpuscular HGB Conc 31.6 g/dL (31.8-35.4); Mean Corpuscular Hemoglobin 29.3 pg (27.0-31.2); Mean Corpuscular Volume 92.9 fl (80-94); Mean Platelet Volume 7.4 fl (7.4-10.4); Monocytes # 0.6 K/mm3 (0.1-1.0); Neutrophils # 12.5 K/mm3 (1.8-7.8); Neutrophils % 78.6 % (37.0-80.0); Platelet Count 557 K/mm3 (142-424); Red Blood Count 3.95 M/mm3 (4.60-6.20); Red Cell Distribution Width 14.3 % (11.5-17.5); White Blood Count 15.8 K/mm3 (4.8-10.8)
[2021-09-04 13:27] LABS: MANUAL DIFFERENTIAL MANUAL DIFFERENTIAL (MANUAL DIFF)
[2021-09-04 13:28] LABS: Chloride 101 mmol/L (98-107); Potassium 4.6 mmoL/L (3.5-5.1); Sodium 136 mmol/L (136-145)
[2021-09-04 13:31] LABS: Anion Gap 12.6 mEq/L (5-15); Blood Urea Nitrogen 34 mg/dl (9-20); Carbon Dioxide 27 mmol/L (22.0-30.0); Creatinine Clearance Estimated 48 mL/min (50-200); Estimated Glomerular Filt Rate 54 ml/min (>60); GFR (African American) 65 ML/MIN (>60); Glucose 130 mg/dl (74-100)
[2021-09-04 13:32] LABS: Calcium 8.6 mg/dl (8.4-10.2)
[2021-09-04 14:03] LABS: Lymphocytes % 19 % (10-50); Monocytes % 1 % (2-9); Neutrophils % 80 % (42-76); Platelet Estimate Moderate Increase; Total Cells Counted 100
[2021-09-04 14:05] LABS: Spherocytes 1+
[2021-09-04 14:15] VITALS: BP 146/69; PULSE 70; RESP 18; O2SAT 99
[2021-09-04 15:14] LABS: Microscopic, Urine URINE MICROSCOPIC (MICROSCOPIC)
--- NOTE | 2021-09-04 15:14 | PC.NURSE ---
09/04/21 1433-Dr. Montana contacted staff after reviewing pt lab results and added additional orders for blood cx x 2 sets be drawn.
[2021-09-04 15:15] VITALS: BP 136/70; PULSE 67; RESP 18; O2SAT 99
[2021-09-04 15:24] LABS: Appearance,Urine CLEAR (Clear); Bilirubin,Urine Negative (Negative); Blood, Urine Negative (Negative); Color,Urine YELLOW (Yellow); Glucose,Urine (UA) 3+ (Negative); Ketones,Urine 1+ (Negative); Leukocyte Esterase,Urine Negative (Negative); Nitrate,Urine Negative (Negative); PH,Urine 5.5 (5.0-8.5); Protein,Urine Negative (Negative); Specific Gravity, Urine 1.025 (1.005-1.030); Urobilinogen,Urine 0.2 EU/dl (0.2)
[2021-09-04 15:40] VITALS: BP 131/75; PULSE 71; RESP 18; O2SAT 98
[2021-09-04 16:04] LABS: Bacteria,Urine 1+ /lpf; RBC,Urine Occasional #/hpf (0-3)
== END 2021-09-04 15:40 | disposition home or self-care (01) ==
LOC: INF 12:55
PROVIDERS: PCP Internal Medicine Adolescent Medicine; Visit Provider Internal Medicine Adolescent Medicine
DX: E86.0 Dehydration (principal); R11.2 Nausea with vomiting, unspecified
CPT/HCPCS: 80048; 81001; 85007; 85025; 87040; 96360; 96375

== ENCOUNTER 2021-09-06 22:15 | Observation (INO) | payer MEDICARE, OTHER, SELFPAY ==
[2021-09-06 22:17] VITALS: BP 160/85; PULSE 76; RESP 20; TEMP 36.5; O2SAT 100; BMI 38.0
[2021-09-06 22:28] VITALS: BMI 38.0
[2021-09-06 22:31] VITALS: PULSE 69; TEMP 37.3; O2SAT 99
--- NOTE | 2021-09-06 22:34 | CT_ITS ---
PROCEDURE INFORMATION: Exam: CT Abdomen And Pelvis With Contrast Exam date and time: 09/06/2021 10:34 PM Age: 76 years old Clinical indication: Nausea and vomiting; Abdominal pain; Epigastric; Additional info: Epigastric pain, n/v, and dark stool TECHNIQUE: Imaging protocol: Computed tomography of the abdomen and pelvis with contrast. Radiation optimization: All CT scans at this facility use at least one of these dose optimization techniques: automated exposure control; mA and/or kV adjustment per patient size (includes targeted exams where dose is matched to clinical indication); or iterative reconstruction. Contrast material: ISOVUE; Contrast volume: 75 ml; Contrast route: IV; COMPARISON: CR [id number] HIP LT 2-3V W/PELVIS IF PERFOR 08/04/2017 10:11 AM FINDINGS: Lungs: The visualized lung bases are unremarkable. Heart: Normal heart size. Coronary calcification. No pericardial effusion. Diaphragm: Small hiatal hernia. There is circumferential wall thickening of the distal esophagus suggesting esophagitis, not completely evaluated at CT. Liver: Unremarkable. No intrahepatic biliary dilation. Gallbladder and bile ducts: No gallbladder wall thickening. No radio-opaque stones. No common bile duct dilation. Pancreas: Mild stranding around the pancreatic head, neck, and uncinate process is thought to be secondary to duodenitis. No main pancreatic duct dilation. Spleen: No splenomegaly. There are a few calcified granulomas in the spleen. Adrenal glands: Unremarkable. Kidneys and ureters: Symmetric, homogeneous enhancement of both kidneys. No hydronephrosis. Stomach and bowel: There is marked wall thickening of and inflammatory stranding surrounding the proximal duodenum, compatible with duodenitis. This is presumably due to peptic ulcer disease. A suspected transmural or nearly transmural ulcer is visualized in the right posterolateral portion of the proximal duodenal wall (series 3, image 41). There is a small focus of gas within the bowel wall at this ulcer site, but no definite pneumoperitoneum. Remainder of the small bowel is decompressed and unremarkable. [id number] colonic stool burden. Scattered colonic diverticula without evidence of acute diverticulitis. Appendix: Normal appendix. Intraperitoneal space: No pneumoperitoneum. No ascites. Vasculature: No abdominal aortic aneurysm. Scattered mild atherosclerotic plaque. Lymph nodes: No enlarged lymph nodes. Urinary bladder: Bladder is decompressed, limiting its evaluation. Reproductive: Enlarged prostate gland. Bones/joints: Left total hip arthroplasty. Increased inclination angle of the acetabular cup appears similar to prior radiographs. Chronic mild fragmentation of the left greater trochanter. No acute fracture. Multilevel spondylosis. Soft tissues: Small fat containing bilateral inguinal hernias. IMPRESSION: 1. Acute duodenitis, presumably due to peptic ulcer disease, with likely impending perforation of a proximal duodenal ulcer. No luke pneumoperitoneum. 2. Distal esophageal wall thickening suggesting esophagitis.
--- NOTE | 2021-09-06 22:35 | ECG_ITS ---
APPROVED REPORT Exam: Resting ECG HR:70 bpm ECG Measurements Heart Rate 70 AXES NJ 204 P 70 QRSd 92 QRS -5 QT 412 T 69 QTc 444 Conclusion Sinus rhythm with occasional premature ventricular complexes Low voltage QRS Borderline ECG Electronically signed by : Gasper Montana MD 09/11/2021 13:54:05
[2021-09-06 22:41] LABS: Basophils # 0.1 K/mm3 (0-0.2); Basophils % 0.9 % (0.1-2.0); Eosinophils # 0.3 K/mm3 (0.0-0.4); Eosinophils % 1.6 % (0.1-12.0); Hematocrit 35.4 % (42.0-52.0); Hemoglobin 11.4 g/dL (14.1-18.0); Lymphocytes # 2.7 K/mm3 (0.7-4.5); Lymphocytes % 17.6 % (10-50); Mean Corpuscular HGB Conc 32.1 g/dL (31.8-35.4); Mean Corpuscular Hemoglobin 29.8 pg (27.0-31.2); Mean Corpuscular Volume 92.7 fl (80-94); Mean Platelet Volume 7.3 fl (7.4-10.4); Monocytes # 0.8 K/mm3 (0.1-1.0); Neutrophils # 11.5 K/mm3 (1.8-7.8); Neutrophils % 74.9 % (37.0-80.0); Platelet Count 584 K/mm3 (142-424); Red Blood Count 3.83 M/mm3 (4.60-6.20); Red Cell Distribution Width 14.9 % (11.5-17.5); White Blood Count 15.3 K/mm3 (4.8-10.8)
[2021-09-06 22:42] LABS: MANUAL DIFFERENTIAL MANUAL DIFFERENTIAL (MANUAL DIFF)
[2021-09-06 22:46] LABS: Alanine Aminotransferase 96 U/L (12-78); Albumin Level 3.9 g/dl (3.5-5.0); Alkaline Phosphatase 102 U/L (38-126); Anion Gap 10.5 mEq/L (5-15); Aspartate Amino Transferase 71 U/L (17-59); Bilirubin,Direct 0.2 mg/dl (0.0-0.4); Bilirubin,Indirect 0.2 mg/dL (0.0-0.9); Bilirubin,Total 0.4 mg/dl (0.2-1.3); Bilirubin,Unconjugated 0.2 mg/dL (0.0-1.1); Blood Urea Nitrogen 25 mg/dl (9-20); Calcium 8.4 mg/dl (8.4-10.2); Carbon Dioxide 29 mmol/L (22.0-30.0); Chloride 99 mmol/L (98-107); Creatinine Clearance Estimated 85 mL/min (50-200); Estimated Glomerular Filt Rate 59 ml/min (>60); GFR (African American) 71 ML/MIN (>60); Glucose 125 mg/dl (74-100); Potassium 4.5 mmoL/L (3.5-5.1); Sodium 134 mmol/L (136-145); Total Protein,Serum 7.3 g/dl (6.3-8.2)
[2021-09-06 22:49] LABS: Eosinophils % 4 % (0-3); Lymphocytes % 18 % (10-50); Monocytes % 5 % (2-9); Neutrophils % 71 % (42-76); Platelet Estimate Slight Increase; RBC Morphology Normal; Total Cells Counted 100
[2021-09-06 22:51] LABS: C-Reactive Protein 11.3 mg/L (0-4)
[2021-09-06 22:58] LABS: NT Pro Brain Natriuretic Pep. 230 pg/mL (0-450)
[2021-09-06 23:00] VITALS: BP 155/80; PULSE 69; O2SAT 99
[2021-09-06 23:01] LABS: Troponin I < 0.01 ng/ml (0.00-0.034)
[2021-09-06 23:04] LABS: Erythrocyte Sedimentation Rate 51 mm/hr (0-20)
[2021-09-06 23:05] LABS: Procalcitonin 0.116 ng/mL (0.0-2.0)
[2021-09-06 23:10] LABS: Microscopic, Urine URINE MICROSCOPIC (MICROSCOPIC)
[2021-09-06 23:17] LABS: Appearance,Urine SL CLOUDY (Clear); Blood, Urine Negative (Negative); Color,Urine YELLOW (Yellow); Glucose,Urine (UA) 2+ (Negative); Ketones,Urine 1+ (Negative); Leukocyte Esterase,Urine Negative (Negative); Nitrate,Urine Negative (Negative); PH,Urine 5.5 (5.0-8.5); Protein,Urine TRACE (Negative); Specific Gravity, Urine >= 1.030 (1.005-1.030); Urobilinogen,Urine 0.2 EU/dl (0.2)
[2021-09-06 23:20] LABS: Occult Blood,Stool Positive (Negative)
[2021-09-06 23:27] LABS: Bilirubin,Urine Negative (Negative)
[2021-09-06 23:28] LABS: Bacteria,Urine 2+ /lpf; Squamous Epithelial Cell,Urine Occasional #/hpf (0-5)
--- NOTE | 2021-09-06 23:28 | PC.NURSE ---
pt to ct
[2021-09-07 00:15] LABS: Coronavirus 19, PCR Not Detected (NotDetected); Influenza A, PCR Not Detected (NotDetected); Influenza B, PCR Not Detected (NotDetected)
--- NOTE | 2021-09-07 00:17 | PC.NURSE ---
Earlene called, Dr. Cai in another room & in the middle of a procedure; he asked that I take the report and if MD had any concerns he would call. EARLENE states that they just need to ensure the report was received.
--- NOTE | 2021-09-07 00:22 | HMH.EDNVD ---
ED Disposition Clinical Impression: Duodenitis, PUD (peptic ulcer disease), UGIB (upper gastrointestinal bleed) Disposition: Admitted As Inpatient Condition on Discharge: Good Instructions: DI for Acute Abdominal Pain Referrals: Gasper Montana MD [Primary Care Provider] - - Critical Care Critical Care Time: No Attestation: On 09/06/21, the high probability of a clinically significant, sudden or life threatening deterioration of the following system(s) required my full and direct attention, intervention and personal management. The time I documented below is in addition to time spent performing reported procedures but includes the following listed in this critical care notation. Medical Decision Making - Medical Records Medical records reviewed: Yes: I reviewed the patient's medical records. - Real Inquiry Pt receiving controlled substance: No Vital Signs: 09/06/21 22:17 09/06/21 22:31 09/06/21 23:00 Temperature 97.7 F 99.1 F Temperature Source Oral Rectal Pulse Rate 69 69 Pulse Rate [Right] 76 Respiratory Rate 20 Blood Pressure 155/80 H Blood Pressure [Right Arm] 160/85 H Blood Pressure Mean [Right Arm] 110 Blood Pressure Source [Right Arm] Automatic Cuff 02 Sat by Pulse Oximetry 100 99 99 Oxygen Delivery Method Room Air Room Air Room Air - Lab Data Lab results reviewed: Yes: I reviewed the patient's lab results. Lab Results 09/06/21 22:29: ESR 51 H 09/06/21 22:29: Troponin I < 0.01, C-Reactive Protein 11.3 H, Procalcitonin 0.116 09/06/21 22:29: Stool Occult Blood Positive A 09/06/21 22:29: WBC 15.3 H, RBC 3.83 L, Hgb 11.4 L, Hct 35.4 L, MCV 92.7, MCH 29.8, MCHC 32.1, RDW 14.9, Plt Count 584 H, MPV 7.3 L, Neut % (Auto) 74.9, Lymph % (Auto) 17.6, [place] % (Auto) 5.0, Eos % (Auto) 1.6, Baso % (Auto) 0.9, Neut # (Auto) 11.5 H, Lymph # (Auto) 2.7, [place] # (Auto) 0.8, Eos # (Auto) 0.3, Baso # (Auto) 0.1, Total Counted 100, Neutrophils % (Manual) 71, Band Neutrophils % 2.0, Lymphocytes % (Manual) 18, Monocytes % (Manual) 5, Eosinophils % (Manual) 4 H, Platelet Estimate Slight increase, RBC Morphology Normal 09/06/21 22:29: Sodium 134 L, Potassium 4.5, Chloride 99, Carbon Dioxide 29, Anion Gap 10.5, BUN 25 H D, Creatinine 1.20, Estimated Creat Clear 85, Estimated GFR 59, Est GFR ( Amer) 71, Glucose 125 H, Calcium 8.4, Magnesium 2.0, Total Bilirubin 0.4, Direct Bilirubin 0.2, Conjugated Bilirubin 0.0, Indirect Bilirubin 0.2, Unconjugated Bilirubin 0.2, AST 71 H, ALT 96 H, Alkaline Phosphatase 102, NT-Pro-B Natriuret Pep 230, Total Protein 7.3, Albumin 3.9 09/06/21 22:34: Lactate 1.0 09/06/21 23:06: Urine Color Yellow, Urine Appearance Sl cloudy, Urine pH 5.5, Ur Specific [place] >= 1.030, Urine Protein Trace, Urine Glucose (UA) 2+, Urine Ketones 1+, Urine Blood Negative, Urine Nitrate Negative, Urine Bilirubin Negative, Urine Urobilinogen 0.2, Ur Leukocyte Esterase Negative, Urine WBC 3-5, Ur Squamous Epith Cells Occasional, Urine Bacteria 2+ Result diagrams: 09/06/21 22:29 09/06/21 22:29 Orders (Tests/Meds): ED MEDICATIONS Generic Name Dose Route Start Last Admin Trade Name Freq PRN Reason Stop Dose Admin Sodium Chloride 1,000 mls @ 999 mls/hr 09/06/21 23:30 09/06/21 23:35 Sod Chlor 0.9% 1000ml Bag IV 09/07/21 00:30 999 mls/hr .Q1H1M TAWNYA Administration Pantoprazole Sodium 80 mg/ 100 mls @ 100 mls/hr 09/06/21 23:26 09/06/21 23:45 Sodium Chloride IV 09/07/21 00:25 100 mls/hr ONCE ONE Administration Sodium Chloride 8 ml 09/06/21 23:18 Sodium Chloride 0.9% 10ml Vial IV 10/06/21 23:17 NEEDED PRN dilute pepcid Discontinued Medications Generic Name Dose Route Start Last Admin Trade Name Freq PRN Reason Stop Dose Admin Famotidine 20 mg 09/06/21 23:18 09/06/21 23:23 Famotidine 20mg/2ml Vial IV 09/06/21 23:19 20 mg ONCE ONE Administration Iopamidol 75 ml 09/06/21 23:38 09/06/21 23:38 Iopamidol-370 (76%);100ml Bottle IV
--- NOTE | 2021-09-07 00:25 | PC.NURSE ---
Dr. Cai s/w Dr. Bass, Gen/Surg mergers and acquisitions consultant
[2021-09-07 00:32] VITALS: BMI 37.9
--- NOTE | 2021-09-07 01:31 | PC.NURSE ---
patient up to floor via wheelchair @ this time.
[2021-09-07 01:34] VITALS: BP 135/64; PULSE 65; RESP 18; TEMP 36.8; O2SAT 99
[2021-09-07 01:55] VITALS: BP 136/72; PULSE 77; RESP 18; TEMP 36.3; O2SAT 100
[2021-09-07 04:00] VITALS: BP 135/72; PULSE 65; RESP 14; TEMP 36.6; O2SAT 96
--- NOTE | 2021-09-07 05:21 | PC.WOUNDNOTE ---
Addendum entered by Kathy Gallardo RN 09/08/21 03:17: multiple ulcerations - pt states it is d/t chronic venous stasis and lymphedema Original Note: venous ulcers to lateral left lower leg/ankle - pt comes outpt for dressing changes venous ulcers to medial left lower leg posterior left lower leg towards ankle left second toe venous ulcer left great toe, scabbed ulceration
[2021-09-07 06:01] LABS: POC Glucose,Bedside 108 (70-110)
[2021-09-07 06:12] LABS: Basophils # 0.1 K/mm3 (0-0.2); Basophils % 0.9 % (0.1-2.0); Eosinophils # 0.2 K/mm3 (0.0-0.4); Eosinophils % 1.6 % (0.1-12.0); Hematocrit 31.4 % (42.0-52.0); Lymphocytes # 2.9 K/mm3 (0.7-4.5); Lymphocytes % 21.6 % (10-50); Mean Corpuscular HGB Conc 32.2 g/dL (31.8-35.4); Mean Corpuscular Volume 93.1 fl (80-94); Mean Platelet Volume 7.9 fl (7.4-10.4); Monocytes % 7.2 % (1.7-9.3); Neutrophils # 9.3 K/mm3 (1.8-7.8); Neutrophils % 68.7 % (37.0-80.0); Platelet Count 539 K/mm3 (142-424); Red Blood Count 3.38 M/mm3 (4.60-6.20); White Blood Count 13.6 K/mm3 (4.8-10.8)
[2021-09-07 06:13] LABS: Hemoglobin 10.1 g/dL (14.1-18.0)
[2021-09-07 06:32] LABS: Anion Gap 9.1 mEq/L (5-15); Blood Urea Nitrogen 23 mg/dl (9-20); Calcium 7.7 mg/dl (8.4-10.2); Carbon Dioxide 25 mmol/L (22.0-30.0); Chloride 104 mmol/L (98-107); Creatinine Clearance Estimated 70 mL/min (50-200); Estimated Glomerular Filt Rate 65 ml/min (>60); GFR (African American) 79 ML/MIN (>60); Glucose 97 mg/dl (74-100); Potassium 4.1 mmoL/L (3.5-5.1); Sodium 134 mmol/L (136-145)
[2021-09-07 08:00] VITALS: BP 140/69; PULSE 64; RESP 16; TEMP 36.9; O2SAT 96
--- NOTE | 2021-09-07 08:00 | XR_ITS ---
PROCEDURE INFORMATION: Exam: XR Chest Exam date and time: 09/07/2021 8:00 AM Age: 76 years old Clinical indication: Pain; Chest pressure; Additional info: Chest pain TECHNIQUE: Imaging protocol: XR of the chest. Views: 1 view. COMPARISON: CR XR CHEST PORTABLE 02/21/2021 3:59 PM FINDINGS: Lungs: Unremarkable. No consolidation. Pleural spaces: Unremarkable. No pleural effusion. No pneumothorax. Heart/Mediastinum: Unremarkable. No cardiomegaly. Bones/joints: Unremarkable. IMPRESSION: No acute findings.
--- NOTE | 2021-09-07 08:52 | HMH.HP ---
*Admission Date: 09/07/21 *Chief complaint: Recurrent vomiting/abdominal pain *History of present illness: 76-year-old white male with history of chronic kidney disease, recurrent gouty arthritis, recurrent lymphedema with recurrent cellulitis of lower extremities, who over the past couple of weeks has had some abdominal pain episodes that have caused him to present to the emergency department about 10 days ago and then to my office late last week. In the ER he was diagnosed with gastroenteritis. Labs were stable, acute abdominal series was unremarkable and he was given Zofran and discharged home. In my office he was found to be continually nauseated, really did not have abdominal pain, once again I did labs which showed stable H&H and white counts, and he was given fluids and Zofran in the infusion area and felt better. Unfortunately his pain became worse and he actually developed some stabbing pain in the epigastric area with increasing nausea and passage of some blackish stools along with possible coffee ground emesis, and came to the emergency department. In the emergency department labs were again stable, with no significant drop in hemoglobin, change in his white counts or electrolyte disturbances above his baseline, but CT scan revealed a large peptic ulcer with evidence of impending perforation per radiology read. Patient was made n.p.o., admitted to hospital for surgery consultation and intravenous proton pump inhibitor. [facility] History I have reviewed the patient's past medical history: Yes Medical History: Reports:: BPH, Diabetes Mellitus Type 2, Heart Murmur (when he was 13 years old), Hypertension, Peripheral Artery Disease, Peripheral Vascular Disease Denies:: Cancer, Diabetes Mellitus Type 1, MRSA *Have you ever received a pneumonia vaccine?: Yes *Have you received a flu vaccine this season?: Yes Other Medical History: Reports: Arthritis, Cataracts, Sinus Problems Laterality Cases: Left: Total Hip Replacement Other Surgeries: Yes: Colonoscopy, Other Amputation: No Fractures: No - *Social History Smoking Status: Never smoker Tobacco Type: cigarettes # Packs/Day (cigarettes): 1 #Yrs smoked (if former smoker): 0 Alcohol Intake: never Alcohol Intake Frequency:: other Substance Use Type: denies use *Occupational Status:: employed Housing: house Household Members: none *Travel in the last 8 weeks: None Family Hx:: Cancer, Heart Attack Review of Systems - Review of Systems Review of systems:: pertinent systems reviewed and negative unless documented below - *Neurologic Denies abnormal hearing, Denies confusion Meds Home Medications Medication Instructions Recorded Confirmed Type fluticasone propionate 50 1 spr INTRANASAL HS PRN 60 Days #16 01/17/18 09/07/21 History mcg/actuation nasal spray,suspension Tamsulosin HCl [Flomax 0.4mg 0.8 mg PO HS 04/04/18 09/07/21 History capsule] Aspirin [Aspirin 81mg EC Tab] 81 mg PO DAILY 01/17/20 09/07/21 History carvedilol 25 mg tablet 25 mg PO DAILY tab 07/15/21 09/07/21 History empagliflozin 25 mg tablet 25 mg PO DAILY tab 07/15/21 09/07/21 History Ondansetron [Zofran 4mg ODT] 4 mg PO Q6H PRN #12 tab 09/01/21 09/07/21 Rx Allergies Allergy/AdvReac Type Severity Reaction Status Date / Time Antihistamines - Alkylamine Allergy Mild MADE SKIN Verified 07/15/21 15:12 [ANTIHISTAMINES - ALKYLAMINE] FEEL LIKE ON FIRE NSAIDS (Non-Steroidal AdvReac Severe kidney Verified 07/15/21 15:12 Anti-Inflamma failure Exam Vital signs and Labs for Last 24 Hours: Temp Pulse Resp BP Pulse Ox 98.4 F 64 16 140/69 96 09/07/21 08:00 09/07/21 08:00 09/07/21 08:00 09/07/21 08:00 09/07/21 08:00 Laboratory Results - last 24 hr 09/06/21 22:29: ESR 51 H 09/06/21 22:29: Troponin I < 0.01, C-Reactive Protein 11.3 H, Procalcitonin 0.116 09/06/21 22:29: Stool Occult Blood Positive A 09/06/21 22:29: WBC 15.3 H, RBC 3.83 L, Hgb 11.4 L, Hct 35.
--- NOTE | 2021-09-07 10:12 | HMH.PHAVTE ---
[facility] Pharmacy VTE Monitoring - Patient Demographics Admission date: 09/07/21 Report Date: 09/07/21 Time: 10:12 Allergies/Adverse Reactions: Patient Allergies Antihistamines - Alkylamine [ANTIHISTAMINES - ALKYLAMINE] Allergy (Mild, Verified 07/15/21 15:12) MADE SKIN FEEL LIKE ON FIRE NSAIDS (Non-Steroidal Anti-Inflamma Adverse Reaction (Severe, Verified 07/15/21 15:12) kidney failure Height: 1.73 m Weight: 85.82 kg Patient Problems: Current Active Problems Hypertension (Chronic) Dehydration (Acute) Duodenitis (Acute) PUD (peptic ulcer disease) (Acute) UGIB (upper gastrointestinal bleed) (Acute) Diabetes mellitus (Acute) - VTE Risk Labs: VTE Related Lab Results Hgb 10.1 g/dL (14.1-18.0) L D 09/07/21 05:07 Hct 31.4 % (42.0-52.0) L 09/07/21 05:07 Plt Count 539 K/mm3 (142-424) H 09/07/21 05:07 BUN 23 mg/dl (9-20) H 09/07/21 05:07 Creatinine 1.10 mg/dl (0.66-1.25) 09/07/21 05:07 Estimated Creat Clear 70 mL/min (50-200) 09/07/21 05:07 Was VTE Risk Assessment Performed: Yes VTE Score: 7 VTE Risk Level: Moderate Risk Clinical Trial Participant: No - Prophylaxis VTE Prophylaxis Ordered?: Yes Types of VTE Prophylaxis: TEDS Knee High Location of Applied Device: Bilateral Lower Extremeties
--- NOTE | 2021-09-07 10:14 | HMH.PHAINT ---
MEDICATION RECONCILIATION COMPLETE USING LIST FROM RECENT MD OFFICE VISIT AND EXTERNAL PHARMACY FILL HISTORY.
[2021-09-07 11:42] LABS: POC Glucose,Bedside 85 (70-110)
--- NOTE | 2021-09-07 14:14 | HMH.GSCON ---
*Admission Date: 09/07/21 *Reason for consult:: Peptic ulcer disease. Duodenitis. *History of present illness: Mr. Vega is a 76-year-old male admitted to [facility] after protracted illness lasting approximately 14 days. Primary complaint noted to be nausea. Outpatient evaluation completed. Thought to be viral illness. Lack of improvement prompted [facility] ED visit. CT imaging was obtained. Duodenitis was noted; inflammation around the duodenum without evidence of perforation. Surgical consultation requested based on CT findings and persistent nausea. Today, patient reports that he is feeling better. Mild mid gastric abdominal pain. No other significant complaints. No vomiting. Able to tolerate oral intake. Currently on proton pump inhibitor. No prior EGD. Review of Systems - Review of Systems Review of systems:: pertinent systems reviewed and negative unless documented below - *Neurologic Denies abnormal hearing, Denies confusion [facility] History Medical History: Reports:: BPH, Diabetes Mellitus Type 2, Heart Murmur (when he was 13 years old), Hypertension, Peripheral Artery Disease, Peripheral Vascular Disease Denies:: Cancer, Diabetes Mellitus Type 1, MRSA *Have you ever received a pneumonia vaccine?: Yes *Have you received a flu vaccine this season?: Yes Other Medical History: Reports: Arthritis, Cataracts, Sinus Problems Laterality Cases: Left: Total Hip Replacement Other Surgeries: Yes: Colonoscopy, Other Amputation: No Fractures: No - *Social History Smoking Status: Never smoker Tobacco Type: cigarettes # Packs/Day (cigarettes): 1 #Yrs smoked (if former smoker): 0 Alcohol Intake: never Alcohol Intake Frequency:: other Substance Use Type: denies use *Occupational Status:: employed Housing: house Household Members: none *Travel in the last 8 weeks: None Family Hx:: Cancer, Heart Attack Meds Home Medications Medication Instructions Recorded Confirmed Type fluticasone propionate 50 1 spr INTRANASAL HS PRN 60 Days #16 01/17/18 09/07/21 History mcg/actuation nasal spray,suspension Tamsulosin HCl [Flomax 0.4mg 0.8 mg PO HS 04/04/18 09/07/21 History capsule] Aspirin [Aspirin 81mg EC Tab] 81 mg PO DAILY 01/17/20 09/07/21 History carvedilol 25 mg tablet 25 mg PO BID tab 07/15/21 09/07/21 History empagliflozin 25 mg tablet 25 mg PO DAILY tab 07/15/21 09/07/21 History Ondansetron [Zofran 4mg ODT] 4 mg PO Q6H PRN #12 tab 09/01/21 09/07/21 Rx Allergies Allergy/AdvReac Type Severity Reaction Status Date / Time Antihistamines - Alkylamine Allergy Mild MADE SKIN Verified 07/15/21 15:12 [ANTIHISTAMINES - ALKYLAMINE] FEEL LIKE ON FIRE NSAIDS (Non-Steroidal AdvReac Severe kidney Verified 07/15/21 15:12 Anti-Inflamma failure Exam Vital signs and Labs for Last 24 Hours: Temp Pulse Resp BP Pulse Ox 98.4 F 64 16 140/69 96 09/07/21 08:00 09/07/21 08:00 09/07/21 08:00 09/07/21 08:00 09/07/21 08:00 Laboratory Results - last 24 hr 09/06/21 22:29: ESR 51 H 09/06/21 22:29: Troponin I < 0.01, C-Reactive Protein 11.3 H, Procalcitonin 0.116 09/06/21 22:29: Stool Occult Blood Positive A 09/06/21 22:29: WBC 15.3 H, RBC 3.83 L, Hgb 11.4 L, Hct 35.4 L, MCV 92.7, MCH 29.8, MCHC 32.1, RDW 14.9, Plt Count 584 H, MPV 7.3 L, Neut % (Auto) 74.9, Lymph % (Auto) 17.6, [place] % (Auto) 5.0, Eos % (Auto) 1.6, Baso % (Auto) 0.9, Neut # (Auto) 11.5 H, Lymph # (Auto) 2.7, [place] # (Auto) 0.8, Eos # (Auto) 0.3, Baso # (Auto) 0.1, Total Counted 100, Neutrophils % (Manual) 71, Band Neutrophils % 2.0, Lymphocytes % (Manual) 18, Monocytes % (Manual) 5, Eosinophils % (Manual) 4 H, Platelet Estimate Slight increase, RBC Morphology Normal 09/06/21 22:29: Sodium 134 L, Potassium 4.5, Chloride 99, Carbon Dioxide 29, Anion Gap 10.5, BUN 25 H D, Creatinine 1.20, Estimated Creat Clear 85, Estimated GFR 59, Est GFR ( Amer) 71, Glucose 125 H, Calcium 8.4, Magnesium
[2021-09-07 15:31] VITALS: BP 142/70; PULSE 76; RESP 16; TEMP 36.6; O2SAT 99
[2021-09-07 17:52] LABS: POC Glucose,Bedside 86 (70-110)
[2021-09-07 20:00] VITALS: BP 148/71; PULSE 70; RESP 16; TEMP 36.9; O2SAT 97
[2021-09-08 04:00] VITALS: BP 169/72; PULSE 72; RESP 18; TEMP 36.9; O2SAT 97
[2021-09-08 05:04] VITALS: BMI 37.9
[2021-09-08 06:17] LABS: POC Glucose,Bedside 85 (70-110)
[2021-09-08 07:09] LABS: Basophils # 0.1 K/mm3 (0-0.2); Basophils % 0.9 % (0.1-2.0); Eosinophils # 0.4 K/mm3 (0.0-0.4); Eosinophils % 3.6 % (0.1-12.0); Hemoglobin 10.2 g/dL (14.1-18.0); Lymphocytes # 3.2 K/mm3 (0.7-4.5); Lymphocytes % 28.4 % (10-50); Mean Corpuscular HGB Conc 30.8 g/dL (31.8-35.4); Mean Corpuscular Hemoglobin 29.3 pg (27.0-31.2); Mean Corpuscular Volume 95.2 fl (80-94); Mean Platelet Volume 8.2 fl (7.4-10.4); Monocytes # 0.9 K/mm3 (0.1-1.0); Monocytes % 8.1 % (1.7-9.3); Neutrophils # 6.6 K/mm3 (1.8-7.8); Neutrophils % 58.9 % (37.0-80.0); Platelet Count 565 K/mm3 (142-424); Red Blood Count 3.46 M/mm3 (4.60-6.20); White Blood Count 11.2 K/mm3 (4.8-10.8)
[2021-09-08 07:27] LABS: Alanine Aminotransferase 74 U/L (12-78); Albumin Level 3.3 g/dl (3.5-5.0); Albumin/Globulin Ratio 1.1 (1.1-1.8); Alkaline Phosphatase 86 U/L (38-126); Aspartate Amino Transferase 51 U/L (17-59); Bilirubin,Total 0.4 mg/dl (0.2-1.3); Blood Urea Nitrogen 16 mg/dl (9-20); Calcium 7.8 mg/dl (8.4-10.2); Carbon Dioxide 25 mmol/L (22.0-30.0); Chloride 103 mmol/L (98-107); Creatinine Clearance Estimated 85 mL/min (50-200); Estimated Glomerular Filt Rate 59 ml/min (>60); GFR (African American) 71 ML/MIN (>60); Globulin 2.9 g/dL (1.3-3.2); Glucose 82 mg/dl (74-100); Sodium 133 mmol/L (136-145); Total Protein,Serum 6.2 g/dl (6.3-8.2)
[2021-09-08 08:00] VITALS: BP 154/65; PULSE 71; RESP 16; TEMP 36.7; O2SAT 99
--- NOTE | 2021-09-08 08:41 | HMH.DCSUM ---
General - General Admission date:: 09/07/21 Discharge date: 09/08/21 HPI HPI: 76-year-old white male with history of chronic kidney disease, recurrent gouty arthritis, recurrent lymphedema with recurrent cellulitis of lower extremities, who over the past couple of weeks has had some abdominal pain episodes that have caused him to present to the emergency department about 10 days ago and then to my office late last week. In the ER he was diagnosed with gastroenteritis. Labs were stable, acute abdominal series was unremarkable and he was given Zofran and discharged home. In my office he was found to be continually nauseated, really did not have abdominal pain, once again I did labs which showed stable H&H and white counts, and he was given fluids and Zofran in the infusion area and felt better. Unfortunately his pain became worse and he actually developed some stabbing pain in the epigastric area with increasing nausea and passage of some blackish stools along with possible coffee ground emesis, and came to the emergency department. In the emergency department labs were again stable, with no significant drop in hemoglobin, change in his white counts or electrolyte disturbances above his baseline, but CT scan revealed a large peptic ulcer with evidence of impending perforation per radiology read. Patient was made n.p.o., admitted to hospital for surgery consultation and intravenous proton pump inhibitor. Hospital Course Hospital Course: Patient was admitted, placed on IV fluids, intravenous Protonix at high dose. Surgery was consulted. Appreciate input. Patient's hemoglobin did not drop, had no further bleeding and with the institution of intravenous proton pump inhibitors his pain almost resolved. He was able to tolerate clear liquids yesterday and tolerated a full liquid breakfast this morning. Patient's abdominal exam improved nicely. This morning he is stable, blood pressure and pulse are stable. Hemoglobin is also stable. We discharged home with a soft diet. Twice daily proton pump inhibitors given the significant peptic ulcer disease with bleeding, I will see him in the office on , we will arrange follow-up with surgery as an outpatient next week for scheduling upper endoscopy. Objective Vital signs: Temp Pulse Resp BP Pulse Ox 98.1 F 71 16 154/65 H 99 09/08/21 08:00 09/08/21 08:00 09/08/21 08:00 09/08/21 08:00 09/08/21 08:00 no acute distress - *Routine HEENT Exam Head: Present: normocephalic Eye: Present: EOMI, PERRL ENT: Present: mucous membranes moist - *Routine Neck Exam Present: supple - *Routine Respiratory Exam Present: CTA bilaterally - *Routine Cardiovascular Exam Present: RRR - *Routine Abdominal Exam Present: soft, normoactive bowel sounds. Absent: tenderness - *Routine Extremities Exam Absent: cyanosis, clubbing, edema - *Routine Skin Exam Present: erythema, warm. Absent: rash Comments: Previously noted erythema and edema of brawny changes of left leg - Detailed Eye Exam Eyelids: Bilateral normal inspection Results Labs on day of discharge: Labs from last 24 hours 09/08/21 09/08/21 09/08/21 06:19 06:19 05:52 WBC 11.2 H RBC 3.46 L Hgb 10.2 L Hct 33.0 L MCV 95.2 H MCH 29.3 MCHC 30.8 L RDW 15.0 Plt Count 565 H MPV 8.2 Neut % (Auto) 58.9 Lymph % (Auto) 28.4 [place] % (Auto) 8.1 Eos % (Auto) 3.6 Baso % (Auto) 0.9 Neut # (Auto) 6.6 Lymph # (Auto) 3.2 [place] # (Auto) 0.9 Eos # (Auto) 0.4 Baso # (Auto) 0.1 Sodium 133 L Potassium 4.0 Chloride 103 Carbon Dioxide 25 Anion Gap 9.0 BUN 16 D Creatinine 1.20 Estimated Creat Clear 85 Estimated GFR 59 Est GFR ( Amer) 71 Glucose 82 POC Glucose 85 Calcium 7.8 L Total Bilirubin 0.4 AST 51 D ALT 74 Alkaline Phosphatase 86 Total Protein 6.2 L Albumin 3.3 L D
[2021-09-10 09:13] LABS: H. pylori Stool Ag, EIA Negative (Negative)
== END 2021-09-08 11:20 | disposition home or self-care (01) ==
LOC: ER 22:43 → 2ND 09-07 00:42
PROVIDERS: Admitting Provider Emergency Medicine; Emergency Provider Emergency Medicine; PCP Internal Medicine Adolescent Medicine; Visit Provider Internal Medicine Adolescent Medicine
DX: K27.4 Chronic or unspecified peptic ulcer, site unspecified, with hemorrhage (principal); K29.81 Duodenitis with bleeding; E11.9 Type 2 diabetes mellitus without complications; E86.0 Dehydration; I10 Essential (primary) hypertension; Z79.899 Other long term (current) drug therapy; F17.210 Nicotine dependence, cigarettes, uncomplicated; K92.2 Gastrointestinal hemorrhage, unspecified; I89.0 Lymphedema, not elsewhere classified; R06.09 Other forms of dyspnea; Z20.822 Contact with and (suspected) exposure to COVID-19
CPT/HCPCS: G0378; 36415; 71045; 74177; 80048; 80053; 80076; 81001; 82272; 82962; 83605; 83735; 83880; 84145; 84484; 85007; 85025; 85651; 86140; 87086; 87088; 87186; 87338; 93005; 96365; 96375; 99284; C9803; G0328; J2405; Q9967; U0003; U0005

== ENCOUNTER → 2021-09-11 10:41 | Outpatient (CLI) | payer MEDICARE, OTHER, SELFPAY ==
[2021-09-11 11:17] LABS: Basophils # 0.1 K/mm3 (0-0.2); Basophils % 0.4 % (0.1-2.0); Eosinophils # 0.2 K/mm3 (0.0-0.4); Eosinophils % 1.4 % (0.1-12.0); Hematocrit 33.8 % (42.0-52.0); Hemoglobin 10.5 g/dL (14.1-18.0); Lymphocytes % 11.1 % (10-50); Mean Corpuscular HGB Conc 31.1 g/dL (31.8-35.4); Mean Corpuscular Volume 93.2 fl (80-94); Mean Platelet Volume 7.4 fl (7.4-10.4); Monocytes # 0.9 K/mm3 (0.1-1.0); Monocytes % 5.2 % (1.7-9.3); Neutrophils # 14.4 K/mm3 (1.8-7.8); Platelet Count 634 K/mm3 (142-424); Red Blood Count 3.63 M/mm3 (4.60-6.20); White Blood Count 17.6 K/mm3 (4.8-10.8)
[2021-09-11 11:22] LABS: MANUAL DIFFERENTIAL MANUAL DIFFERENTIAL (MANUAL DIFF)
[2021-09-11 11:44] LABS: Alanine Aminotransferase 47 U/L (12-78); Albumin/Globulin Ratio 1.4 (1.1-1.8); Alkaline Phosphatase 102 U/L (38-126); Anion Gap 13.2 mEq/L (5-15); Aspartate Amino Transferase 27 U/L (17-59); Bilirubin,Total 0.3 mg/dl (0.2-1.3); Blood Urea Nitrogen 16 mg/dl (9-20); Calcium 8.7 mg/dl (8.4-10.2); Carbon Dioxide 27 mmol/L (22.0-30.0); Chloride 100 mmol/L (98-107); Estimated Glomerular Filt Rate 49 ml/min (>60); GFR (African American) 60 ML/MIN (>60); Globulin 2.9 g/dL (1.3-3.2); Glucose 113 mg/dl (74-100); Potassium 5.2 mmoL/L (3.5-5.1); Sodium 135 mmol/L (136-145); Total Protein,Serum 6.9 g/dl (6.3-8.2)
[2021-09-11 12:05] LABS: Eosinophils % 1 % (0-3); Lymphocytes % 12 % (10-50); Monocytes % 7 % (2-9); Neutrophils % 80 % (42-76); Platelet Estimate Marked Increase; RBC Morphology Normal; Total Cells Counted 100
[2021-09-11 13:43] LABS: Hemoglobin A1C 5.5 % (4.0-6.0)
== END ==
PROVIDERS: Visit Provider Internal Medicine Adolescent Medicine
DX: I10 Essential (primary) hypertension (principal); Z79.899 Other long term (current) drug therapy
CPT/HCPCS: 36415; 80053; 83036; 85007; 85025

== ENCOUNTER → 2021-09-24 15:45 | Outpatient (CLI) | payer MEDICARE, OTHER, SELFPAY | PROVIDERS: PCP Internal Medicine Adolescent Medicine; Visit Provider Surgery | DX: Z01.812 Encounter for preprocedural laboratory examination (principal); Z11.59 Encounter for screening for other viral diseases; K27.9 Peptic ulcer, site unspecified, unspecified as acute or chronic, without hemorrhage or perforation | CPT/HCPCS: C9803; U0003; U0005 ==

== ENCOUNTER 2021-09-26 09:32 | Day surgery (SDC) | payer MEDICARE, OTHER, SELFPAY ==
[2021-09-24 09:59] VITALS: BMI 42.4
[2021-09-26] VITALS (7 sets, daily range): BP systolic 113–145; BP diastolic 54–78; PULSE 68–78; RESP 18–20; TEMP 36.8–36.9; O2SAT 96–100
--- NOTE | 2021-09-26 12:00 | HMH.SCOPE ---
- Procedure: Date: 09/26/21 Patient Date of :: 1945 Procedure Performed:: Esophagogastroduodenoscopy with biopsies Indications:: Patient is a 76-year-old male referred by Dr. Gasper Montana for EGD. He had been recently admitted on 09/07/2020. For couple of weeks preceding that he had some abdominal pain episodes. He seems to characterize this as reflux and substernal burning. He had been seen in the emergency department at 1 point it was diagnosed with gastroenteritis and able to be managed as an outpatient. He had some significant nausea and then vomiting. He developed some stabbing pain in the epigastrium and substernal area. Vomiting became somewhat black appearing and then he developed some blackish stools. He presented to the emergency department and in the ER he was found to have stable hemoglobin and hematocrit but CT scan was performed which revealed findings of acute duodenitis, presumably due to peptic ulcer disease, with likely impending perforation of proximal duodenal ulcer. No luke pneumoperitoneum. Distal esophageal wall thickening suggesting esophagitis. He was seen by the general surgeon electronic typesetting machine operator. Recommendations were for medical management and outpatient EGD. Patient remained stable and his symptoms resolved. He was discharged home for planned outpatient EGD. He has remained asymptomatic. He has had no symptoms while taking proton pump inhibitors. Of note, preprocedure the patient had asked about possibility of acid higinio medication causing lower extremity swelling. He has a history of lymphedema. However, he has noticed some increased swelling in his lower extremities, particularly his left side with some pain. Plan will be for post procedure venous Doppler although DVT seems quite unlikely. Performing Provider:: Jaiden Trevino MD Referring Provider:: Gasper Montana MD Sedation:: MAC sedation Procedure:: Patient was taken to the endoscopy procedure room. He was positioned in lateral decubitus position. Adequate intravenous sedation was achieved with anesthesia titration of propofol. Variable stiffness Olympus endoscope was inserted via the oropharynx. Esophagus was cannulated. Endoscope was advanced. Esophagus appeared normal. Gastroesophageal junction was encountered at approximately 38 cm from the incisors. Stomach was cannulated and insufflated. Retroflexion revealed an extremely tiny sliding hiatal hernia. He had some fundic polyps consistent with fundic gland polyps. Gastric antral mucosal biopsy was obtained for CLOtest for H. pylori. Pylorus was traversed. Endoscope was advanced to the third portion of the duodenum. There was what appeared to be linear scar along the second and third portion of the duodenum possibly from healed ulcer but no evidence of any ulcer or erosion. Biopsies were obtained. Endoscope was withdrawn to the stomach. Couple biopsies were obtained of the presumed fundic gland polyps. Biopsy was obtained at the gastroesophageal junction. Stomach was desufflated and the endoscope was withdrawn. Findings:: Gastroesophageal junction at 38 cm from the incisors Probable gastric fundic gland polyps No acute ulcer or erosion, possible linear scar along the second and third portion of the duodenum, biopsied Recommendations:: Plan to follow-up on the histopathology and H. pylori status. Recommend continuation of at least H2 blockers. Complications:: None immediately apparent Estimated blood obtained (mL): 2
--- NOTE | 2021-09-26 12:04 | CA_ITS ---
FINAL REPORT TECHNIQUE: Multiple transverse and longitudinal scans were performed of the femoropopliteal deep venous system, with augmentation and compression maneuvers. CLINICAL HISTORY: decreased sensation and swelling FINDINGS: Normal phasic flow was noted in the visualized deep venous system. No intraluminal increased echogenicity is noted to suggest thrombus. There is normal compression and augmentation of the venous structures. No abnormal venous collaterals are seen. Are multiple enlarged left inguinal lymph nodes measuring up to 4 cm. IMPRESSION: No evidence of deep venous thrombosis of the left lower extremity. Reviewed, Interpreted and Dictated by Lior Magdaleno MD Transcribed by Ryan Lara Authenticated by Lior Magdaleno MD on 09/26/2021 02:18:[address] [facility]
--- NOTE | 2021-09-26 13:10 | SUR.PHASEII ---
Pt stable and discharged from post-op. Doppler LLE complete and awaiting [facility] [place] to come and redress LLE before leaving post-op.
[2022-05-28 10:57] LABS: POC Glucose,Bedside 99 (70-110)
== END 2021-09-26 13:07 | disposition home or self-care (01) ==
LOC: OUTP 09:34
PROVIDERS: PCP Internal Medicine Adolescent Medicine; Visit Provider Surgery
PROC: 0DJ08ZZ Inspection of Upper Intestinal Tract, Via Natural or Artificial Opening Endoscopic (ICD-10-PCS; CPT 43235; principal; 2021-09-26 13:00)
DX: K31.7 Polyp of stomach and duodenum (principal); K44.9 Diaphragmatic hernia without obstruction or gangrene; Z87.11 Personal history of peptic ulcer disease; I10 Essential (primary) hypertension; E11.9 Type 2 diabetes mellitus without complications; Z88.8 Allergy status to other drugs, medicaments and biological substances; Z79.899 Other long term (current) drug therapy
CPT/HCPCS: 43239; 82962; 87339; 88305; 93971

== ENCOUNTER → 2022-04-08 15:58 | Outpatient (CLI) | payer MEDICARE, OTHER, SELFPAY | PROVIDERS: PCP Internal Medicine Adolescent Medicine; Visit Provider Surgery | DX: Z01.812 Encounter for preprocedural laboratory examination (principal); Z20.822 Contact with and (suspected) exposure to COVID-19; Z12.11 Encounter for screening for malignant neoplasm of colon | CPT/HCPCS: C9803; U0003; U0005 ==

== ENCOUNTER 2022-04-10 08:28 | Day surgery (SDC) | payer MEDICARE, OTHER, SELFPAY ==
[2022-04-07 14:14] VITALS: BMI 42.5
[2022-04-10] VITALS (7 sets, daily range): BP systolic 129–151; BP diastolic 68–86; PULSE 69–76; RESP 18–20; TEMP 36.4–36.7; O2SAT 93–99
[2022-04-10 09:00] LABS: POC Glucose,Bedside 89 (70-110)
--- NOTE | 2022-04-10 10:04 | P.PN_ITS ---
[facility] Anesthesia Checklist - Patient Identification Patient Identification: Arm Band - Structural Data Admitted From: Home Planned Operative Procedure/s: colonoscopy Consent for Planned Operative Procedure(s) Verified: Yes Verified Documents: Surgical Consent, History and Physical - NPO Status Verified Time NPO: 00:00 - Additional verifications Anesthesia Reactions: No - Airway Assessment C-Spine Mobility Assessed: Yes (mp2) TMJ Mobility Assessed: Yes Dentition: Good Dentition - Neurological Assessment Level of Consciousness: Awake, Alert - Anesthesia Plan Anesthesia Risk discussed: Yes Anesthesia Plan: Verified ASA Class: III Anesthesia Type: MAC [facility] History I have reviewed the patient's past medical history: Yes Medical History: Reports:: BPH, Diabetes Mellitus Type 2, Heart Murmur, Hyperlipidemia, Hypertension, Peripheral Artery Disease, Peripheral Vascular Disease Denies:: Cancer, Diabetes Mellitus Type 1, Internal Pacemaker, MRSA, Seizures *Have you ever received a pneumonia vaccine?: No *Have you received a flu vaccine this season?: Yes Other Medical History: Reports: Arthritis, Cataracts, Sinus Problems Anesthesia experience/problems:: nac Laterality Cases: Left: Total Hip Replacement Other Surgeries: Yes: Colonoscopy, EGD, Other. No: Pacemaker Amputation: No Fractures: No - *Social History Last grade of school completed: High school graduate Smoking Status: Never smoker Tobacco Type: cigarettes # Packs/Day (cigarettes): 1 #Yrs smoked (if former smoker): 0 Alcohol Intake: never Alcohol Intake Frequency:: other Substance Use Type: denies use *Occupational Status:: retired Housing: house Household Members: none *Travel in the last 8 weeks: None Family Hx:: Cancer, Heart Attack
--- NOTE | 2022-04-10 10:43 | P.PCN_ITS ---
- Procedure: Date: 04/10/22 Patient Date of :: 1945 Procedure Performed:: Total colonoscopy to terminal ileum with polypectomy x4 using snare Indications:: Patient is a 76-year-old male with history of diabetes, hypertension, vascular disease. I had performed EGD on him several months ago. He had undergone his initial screening colonoscopy on 09/17/2015 which revealed diverticulosis. 5- year follow-up was recommended. Performing Provider:: Jaiden Trevino MD Referring Provider:: Gasper Montana MD Sedation:: MAC sedation Procedure:: Patient was taken to endoscopy procedure room. He was positioned in lateral decubitus position. Adequate intravenous sedation was achieved with anesthesia titration of propofol. Variable stiffness Olympus colonoscope was inserted via the anus. With some minor difficulty it was advanced to the cecum as he had some redundancy of the sigmoid colon. Ileocecal valve and appendiceal orifice were identified. Colonoscope was advanced a short distance into the terminal ileum which appeared grossly normal. Colonoscope was slowly withdrawn through the colon. There was some particulate liquid stool and some undigested vegetable matter but adequate visualization was able to be achieved. He had a few nonbleeding AVM/vascular ectasia. There was some scattered diverticulosis. In the descending colon there was a small polyp removed with cold snare. In the sigmoid colon small polyp removed with cold snare. Rectosigmoid region small polyp removed with cold snare. Retroflexion within the rectum revealed nonbleeding internal hemorrhoids and lesion likely consistent with anal papilla. However this appeared rather prominent and it was able to be excised using hot snare and sent as anorectal polyp . Colonoscope was withdrawn. Findings:: Polyps as noted above Scattered diverticulosis Scattered nonbleeding AVM/vascular ectasia Recommendations:: Follow-up colonoscopy pending pathology and patient's health status. Complications:: None immediately apparent Estimated blood obtained (mL): 2
== END 2022-04-10 11:40 | disposition home or self-care (01) ==
LOC: OUTP 08:29
PROVIDERS: PCP Internal Medicine Adolescent Medicine; Visit Provider Surgery
PROC: 0DJD8ZZ Inspection of Lower Intestinal Tract, Via Natural or Artificial Opening Endoscopic (ICD-10-PCS; principal; 2022-04-10 09:30)
DX: Z12.11 Encounter for screening for malignant neoplasm of colon (principal); K63.5 Polyp of colon; Z86.010 Personal history of colon polyps; K64.4 Residual hemorrhoidal skin tags; E11.51 Type 2 diabetes mellitus with diabetic peripheral angiopathy without gangrene; I10 Essential (primary) hypertension; E78.5 Hyperlipidemia, unspecified
CPT/HCPCS: 45385; 82962; 88304; 88305; J2704

== ENCOUNTER → 2022-07-02 11:45 | Outpatient (CLI) | payer MEDICARE, OTHER, SELFPAY | PROVIDERS: PCP Nurse Practitioner Family; Visit Provider Nurse Practitioner Family | DX: L84 Corns and callosities (principal); S91.002A Unspecified open wound, left ankle, initial encounter | CPT/HCPCS: 87070; 87077; 87186; 87205 ==

== ENCOUNTER 2023-09-06 16:17 | Outpatient (CLI) | payer MEDICARE, SELFPAY ==
[2023-09-06 16:43] LABS: Basophils # 0.1 K/mm3 (0-0.2); Basophils % 0.7 % (0.1-2.0); Eosinophils # 0.4 K/mm3 (0.0-0.4); Eosinophils % 3.8 % (0.1-12.0); Hematocrit 40.9 % (42.0-52.0); Hemoglobin 13.7 g/dL (14.1-18.0); Lymphocytes # 1.9 K/mm3 (0.7-4.5); Lymphocytes % 16.9 % (10-50); Mean Corpuscular HGB Conc 33.5 g/dL (31.8-35.4); Mean Corpuscular Hemoglobin 29.6 pg (27.0-31.2); Mean Corpuscular Volume 88.6 fl (80-94); Mean Platelet Volume 6.9 fl (7.4-10.4); Monocytes # 0.7 K/mm3 (0.1-1.0); Monocytes % 6.2 % (1.7-9.3); Neutrophils # 8.2 K/mm3 (1.8-7.8); Neutrophils % 72.4 % (37.0-80.0); Platelet Count 507 K/mm3 (142-424); Red Blood Count 4.61 M/mm3 (4.60-6.20); White Blood Count 11.3 K/mm3 (4.8-10.8)
[2023-09-06 17:16] LABS: Hemoglobin A1C 5.8 % (4.0-6.0)
[2023-09-06 17:40] LABS: Alanine Aminotransferase 18 U/L (12-78); Albumin Level 3.9 g/dl (3.5-5.0); Albumin/Globulin Ratio 0.9 (1.1-1.8); Alkaline Phosphatase 124 U/L (38-126); Anion Gap 10.9 mEq/L (5-15); Aspartate Amino Transferase 24 U/L (17-59); Bilirubin,Total 0.4 mg/dl (0.2-1.3); Blood Urea Nitrogen 19 mg/dl (9-20); Calcium 8.2 mg/dl (8.4-10.2); Carbon Dioxide 24 mmol/L (22.0-30.0); Chloride 106 mmol/L (98-107); Estimated Glomerular Filt Rate 49 ml/min (>60); GFR (African American) 59 ML/MIN (>60); Globulin 4.3 g/dL (1.3-3.2); Glucose 117 mg/dl (74-100); Potassium 4.9 mmoL/L (3.5-5.1); Sodium 136 mmol/L (136-145); Total Protein,Serum 8.2 g/dl (6.3-8.2)
[2023-09-06 17:47] LABS: C-Reactive Protein 61.3 mg/L (0-4)
[2023-09-06 17:59] LABS: Free Thyroxine Index 2.8 ug/dL (5.93-13.13); T4 (Thyroxine) 7.3 ug/dl (5.53-11.0); Triiodothryronine (T3) Uptake 38 % (23.5-40.5)
== END 2023-09-06 23:59 ==
LOC: LAB 16:18
PROVIDERS: PCP Internal Medicine Adolescent Medicine; Visit Provider Internal Medicine Adolescent Medicine
DX: Z86.2 Personal history of diseases of the blood and blood-forming organs and certain disorders involving the immune mechanism (principal); I87.2 Venous insufficiency (chronic) (peripheral); E11.69 Type 2 diabetes mellitus with other specified complication; R79.82 Elevated C-reactive protein (CRP); Z79.84 Long term (current) use of oral hypoglycemic drugs
CPT/HCPCS: 36415; 80053; 83036; 84436; 84443; 84479; 85025; 86140

== ENCOUNTER 2023-11-10 15:36 | Emergency (ER) | payer MEDICARE, SELFPAY ==
[2023-11-10 15:38] VITALS: BP 158/82; PULSE 84; RESP 15; TEMP 36.6; O2SAT 95; BMI 37.2
--- NOTE | 2023-11-10 15:56 | CT_ITS ---
PROCEDURE INFORMATION: Exam: CTA Abdominal Aorta and Bilateral Lower Extremities (Run-off) With Contrast Exam date and time: 11/10/2023 5:48 PM Age: 78 years old Clinical indication: Discoloration or erythema; Lower extremity; Bilateral; Additional info: Lower extremity ulcers, h/o pad TECHNIQUE: Imaging protocol: Computed tomographic angiography of the of the abdominal aorta, pelvis and bilateral lower extremities with contrast. 3D rendering (Not supervised by radiologist): MIP and/or 3D reconstructed images were created by the technologist. Radiation optimization: All CT scans at this facility use at least one of these dose optimization techniques: automated exposure control; mA and/or kV adjustment per patient size (includes targeted exams where dose is matched to clinical indication); or iterative reconstruction. Contrast material: ISO 370; Contrast volume: 120 ml; Contrast route: INTRAVENOUS (IV); COMPARISON: CT ABDOMEN PELVIS W CON 09/06/2021 11:27 PM FINDINGS: Aorta: Mild calcific atherosclerotic disease is scattered throughout the abdominal aorta without aneurysmal dilatation. Celiac trunk and mesenteric arteries: No occlusion or significant stenosis. Renal arteries: No occlusion or significant stenosis. Right iliac arteries: No occlusion or significant stenosis. Right femoral/popliteal arteries: Mild calcific atherosclerotic disease of the right common femoral artery without stenosis. Right infrapopliteal arteries: No occlusion or significant stenosis. Left iliac arteries: No occlusion or significant stenosis. Left femoral/popliteal arteries: No occlusion or significant stenosis. Left infrapopliteal arteries: Moderate calcific atherosclerotic disease of the left posterior tibial, anterior tibial, and peroneal arteries result in moderate stenosis. Other arteries: Moderate calcific atherosclerotic disease of the right posterior tibial and peroneal arteries resulting in moderate to severe stenosis. Liver: No mass. Gallbladder and bile ducts: Unremarkable. No calcified stones. No ductal dilation. Pancreas: Unremarkable. No mass. No ductal dilation. Spleen: Multiple benign-appearing calcific densities of the spleen. Adrenal glands: Normal. No mass. Kidneys and ureters: Normal. No mass. Stomach and bowel: Diverticula are scattered throughout the colon without inflammatory changes. Appendix: No evidence of appendicitis. Urinary bladder: Unremarkable. No mass. Reproductive: Unremarkable as visualized. Intraperitoneal space: Unremarkable. No free air. No significant fluid collection. Lymph nodes: No lymphadenopathy. Bones/joints: Left hip arthroplasty with metal artifact that obscures evaluation of the lower pelvis. Soft tissues: Unremarkable. IMPRESSION: 1. Mild calcific atherosclerotic disease of the right common femoral artery without stenosis. 2. 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 3. Moderate calcific atherosclerotic disease of the left posterior tibial, anterior tibial, and peroneal arteries result in moderate stenosis.
--- NOTE | 2023-11-10 16:02 | HMH.EDGENADL ---
Discharge Plan Disposition Patient Disposition: Home, Self-Care Prescriptions Prescriptions: New levofloxacin 750 mg tablet 750 mg PO DAILY 7 Days Qty: 7 0RF amoxicillin-pot clavulanate 875-125 mg tablet 1 tab PO BID 10 Days Qty: 20 0RF No Action fluticasone propionate 50 mcg/actuation spray,suspension 1 spr intranasal HS PRN (Reason: Congestion) 60 Days Qty: 16 Patient Comments: one spray each side carvedilol 25 mg tablet 25 mg PO DAILY Jardiance 25 mg tablet 10 mg PO DAILY levothyroxine 75 mcg tablet 75 mcg PO DAILY Patient Comments: TAKE 1 TABLET BY MOUTH ONCE DAILY cholecalciferol (vitamin D3) 1,250 mcg (50,000 unit) capsule 1,250 mcg PO Patient Comments: TAKE 1 CAPSULE BY MOUTH TWICE A WEEK tamsulosin 0.4 MG capsule 0.8 mg PO HS peg 3350-electrolytes 4,000 ML recon soln 240 ml PO Q10M Rx Instructions: until fecal effluent is clear Referrals Follow up/Referrals: Tenzin Montilla MD [Staff Physician] - See instructions Gasper Montana MD [Primary Care Provider] - See instructions Activity Restrictions/Add. Instructions Additional Instructions/Restrictions: No definitive evidence of any significant cellulitis or wound infection. The hyperemia or redness and ulcerations appear to be a manifestation of your chronic vascular disease. No critical stenosis on your CAT scan. Please follow-up closely with your vascular surgeon as discussed. Wound cultures have been sent. Please take the disc with images to your vascular surgeon and have them manage her wounds and further management as soon as possible and have him follow-up on your wound cultures as well. Also please take your antibiotics as instructed. You may also follow-up with Dr. Montilla as needed for chronic pain management. Clinical Impressions Clinical Impression: Bilateral leg pain, Chronic ulcer of leg, Peripheral arterial disease Discharge ED Provider: Jarret Costa General Adult HPI General Chief complaint: Extremity Problem,Nontraumatic Stated complaint: sent by Dr. Montana- from wound care Time Seen by Provider: 11/10/23 15:46 History of Present Illness HPI narrative: Patient is a 78-year-old male with chronic lower extremity hyperemia and wounds. He presents to the emergency department today after being sent in by his wound clinic for worsening wounds and pain of his bilateral lower extremities. He is followed by a vascular surgeon in [place] whom he is seeing multiple different times and recently had a stent placed in his right lower extremity. States he has not had any increased rest pain or claudication or changes in temperature but his wounds and pain have significantly worsened on bilateral medial aspects of his lower extremities. His hyperemia and erythema is at its baseline. No fevers or chills or other constitutional systemic symptoms. His wound clinic called Dr. Shankar today whom he has not seen in several months and Dr. Shankar asked him to come to the emergency department. Related Data Home Medications Medication Instructions Recorded Confirmed fluticasone propionate 50 1 spr intranasal HS PRN Congestion 01/17/18 07/21/23 mcg/actuation nasal 60 days ##16 spray,suspension tamsulosin 0.4 mg capsule 0.8 mg PO HS PROSTATE 04/04/18 07/21/23 carvedilol 25 mg tablet 25 mg PO DAILY blood pressure 07/15/21 07/21/23 empagliflozin 25 mg tablet 10 mg PO DAILY Diabetes 07/15/21 07/21/23 (Jardiance) peg 3350-electrolytes 236 240 ml PO Q10M bowel prep 04/07/22 07/21/23 gram-22.74 gram-6.74 gram-5.86 gram solution cholecalciferol (vitamin D3) 1,250 1,250 mcg PO 07/01/22 07/21/23 mcg (50,000 unit) capsule levothyroxine 75 mcg tablet 75 mcg PO DAILY 07/01/22 07/21/23 Previous Rx's Medication Instructions Recorded amoxicillin 875 mg-potassium 1 tab PO BID 10 days #20 tabs 11/10/23 clavulanate 125 mg tablet levofloxacin 750 mg tablet 750 mg PO DAILY 7 days #7 tabs 11/10/23 Allergies Allergy/AdvReac Type Severity Reaction Status Date / Time Antihistamines - Alkylamine Allergy Mild MADE SKIN Verified 07/21/23 11:31 [ANTIHISTAMINES - ALKYLAMINE] FEEL LIKE ON FIRE NSAIDS (Non-Steroidal AdvReac Severe kidney Verified 07/21/23 11:31 Anti-Inflamma failure [facility] Disclaimer: The information contained in this section may have been updated after the patient was seen, as this information can be updated by other users. Medical History Arthritis BPH (benign prostatic hyperplasia) Heart murmur HTN (hypertension), benign PAD (peripheral artery disease) Peripheral vascular disease T2DM (type 2 diabetes mellitus) Surgical History History of total left hip replacement Hx of colonoscopy Family History Other Cancer Heart attack Social History Smoking Status: Never smoker alcohol intake: never substance use type: denies use current occupational status: retired Travel in the last 8 weeks: None household members: none housing: house current occupation: [employer] current occupational exposures/hazards: No caffeine: Yes ROS Obtained: Yes All systems reviewed & no additional complaints except as documented Physical Exam General General appearance: alert and in no apparent distress Respiratory Respiratory exam: Present normal lung sounds bilaterally Cardiovascular Cardiovascular exam: Present regular rate and normal rhythm Extremities Exam Extremities exam: Present other (Bilateral extremity hyperemia cool to the touch large ulcerations on bilateral medial distal ankles he has good capillary refill normal sensation and motor function bilateral lower extremities) Neurological Exam Neurological exam: Present alert Medical Decision Making Real Inquiry Pt receiving controlled substance: No Vital Signs: 11/10/23 15:38 11/10/23 16:30 11/10/23 17:00 Temperature 97.8 F Temperature Source Oral Pulse Rate 78 77 Pulse Rate [Right] 84 Respiratory Rate 15 Blood Pressure 143/62 H 147/73 H Blood Pressure [Right Arm] 158/82 H Blood Pressure Mean 89 97 Blood Pressure Mean [Right Arm] 107 02 Sat by Pulse Oximetry 95 98 99 Oxygen Delivery Method Room Air 11/10/23 18:01 Temperature Temperature Source Pulse Rate 89 Pulse Rate [Right] Respiratory Rate Blood Pressure 134/80 Blood Pressure [Right Arm] Blood Pressure Mean 98 Blood Pressure Mean [Right Arm] 02 Sat by Pulse Oximetry 97 Oxygen Delivery Method Lab Data Lab results reviewed: Yes I reviewed the patient's lab results. Lab Results 11/10/23 16:00: WBC 14.2 H, RBC 4.51 L, Hgb 12.9 L, Hct 40.8 L, MCV 90.4, MCH 28.6, MCHC 31.6 L, RDW 15.3, Plt Count 841 H, MPV 7.1 L, Neut % (Auto) 78.9, Lymph % (Auto) 13.5, Christian % (Auto) 4.8, Eos % (Auto) 2.2, Baso % (Auto) 0.5, Neut # (Auto) 11.2 H, Lymph # (Auto) 1.9, Christian # (Auto) 0.7, Eos # (Auto) 0.3, Baso # (Auto) 0.1, ESR 26 H, Sodium 138, Potassium 4.6, Chloride 108 H, Carbon Dioxide 18 L, Anion Gap 16.6 H, BUN 30 H, Creatinine 1.70 H, Estimated Creat Clear 57, Estimated GFR 39 L, Est GFR ( Amer) 48 L, Glucose 120 H, Lactate 1.9, Calcium 8.9, Total Bilirubin 0.4, AST 29, ALT 24, Alkaline Phosphatase 130 H, Total Creatine Kinase 45 L, C-Reactive Protein 67.7 H, Total Protein 8.9 H, Albumin 3.9, Globulin 5.0 H, Albumin/Globulin Ratio 0.8 L 11/10/23 18:30: Urine Color Yellow, Urine Appearance Clear, Urine pH 5.5, Ur Specific Waldron 1.020, Urine Protein Trace, Urine Glucose (UA) Negative, Urine Ketones Negative, Urine Blood Negative, Urine Nitrate Negative, Urine Bilirubin Negative, Urine Urobilinogen 0.2, Ur Leukocyte Esterase Negative, Urine RBC None, Urine WBC None, Ur Squamous Epith Cells Occasional, Urine Bacteria None 11/10/23 16:00 11/10/23 16:00 Orders (Tests/Meds): ED MEDICATIONS Discontinued Medications Generic Name Dose Route Start Last Admin Trade Name Freq PRN Reason Stop Dose Admin Lactated Ringer's 500 mls @ 999 mls/hr 11/10/23 16:00 11/10/23 16:16 Lactated Ringer's 1000 Ml Bag IV 11/10/23 16:30 999 mls/hr .Q31M [id number] Administration Iopamidol 120 ml 11/10/23 18:00 11/10/23 18:03 Iopamidol-370 (76%);100ml Bottle IV 11/10/23 18:01 120 ml ONCE ONE Administration Morphine Sulfate 4 mg 11/10/23 15:56 11/10/23 16:16 Morphine 4mg/Ml Syringe IV 11/10/23 15:57 4 mg ONCE ONE Administration Ondansetron HCl 4 mg 11/10/23 15:56 11/10/23 16:16 Ondansetron 4mg/2ml Vial IV 11/10/23 15:57 4 mg ONCE ONE Administration Sodium Chloride 10 ml 11/10/23 18:00 11/10/23 18:02 Sodium Chloride 0.9% 10ml Syr (Rad Only) IV 11/10/23 18:01 10 ml ONCE ONE Administration Sodium Chloride 50 ml 11/10/23 18:00 11/10/23 18:02 0.9 % Sodium Chloride 50 Ml Vial IV 11/10/23 18:01 50 ml ONCE ONE Administration ORDERS Category Date Time Status CT angio abdomen/femoral Stat Cat Scan 11/10/23 15:56 Completed CBC w/Auto Diff [Complete Blood Count Auto Diff] Stat Lab 11/10/23 16:00 Completed CK [Creatine Kinase] Stat Lab 11/10/23 16:00 Completed CMP [Comprehensive Metabolic Panel] Stat Lab 11/10/23 16:00 Completed CRP [C-Reactive Protein] Stat Lab 11/10/23 16:00 Completed ESR [Erythrocyte Sedimentation Rate] Stat Lab 11/10/23 16:00 Completed Lactic Acid Stat Lab 11/10/23 16:00 Completed UA [Urinalysis and Microscopic] Stat Lab 11/10/23 18:30 Completed Wound Culture and Gram Stain Stat Micro 11/10/23 17:15 Received Wound Culture and Gram Stain Stat Micro 11/10/23 17:15 Received Medical Decision Narrative: Patient is a 78-year-old male presenting today with bilateral lower extremity pain and worsening of his chronic ulcerations. He has bilateral hyperemia this does not appear to be cellulitis and is chronic and cool to the touch. His wounds themselves are not purulent however certainly could have a bacterial component. Cultures have been sent to those. He is followed by vascular surgery. I do not suspect that he has an acute vascular emergency however given the presentation worsening pain we will get a CT angio abdomen pelvis with runoff to evaluate for possible stent occlusion or worsening vascular stenosis. Most likely this is a manifestation of his chronic lower extremity peripheral artery disease and he will need to follow-up closely with his vascular surgeon assuming there is no emergent medical condition. Reassessment 7:05 PM inflammatory markers elevated but CRP is near baseline of where it has been trending. There is a leukocytosis of 14. Again as stated above the erythema patient states is at the baseline and the reason he is here is primarily for the ulceration is not healing and the pain associated with it. On reassessment his pain is improved. Patient is afebrile and has been and remained afebrile. CT angio abdomen pelvis with runoff did not show any critical stenotic areas but did have mild calcification in the right common femoral moderate calcification right posterior tibial and peroneal arteries and moderate calcification left posterior tib and anterior tib and peroneal arteries. Overall this is chronic multivessel disease and lower extremity. Nothing acute. As stated above this is most likely a chronic manifestation of his chronic ischemia. He has been advised to elevate or change positions of his legs as needed for pain. He will continue follow-up with wound management. This does not appear to be acute cellulitis particularly as stated above and also because this is bilateral in nature. I will give him oral Augmentin and Levaquin as needed for possible gram-positive and gram-negative organisms that could be growing from his wound. Wounds themselves however have good granulation tissue no purulence. He will follow-up very closely with Dr. Watkins vascular surgeon will call tomorrow to make an appointment. We have also printed a CT angio disc for him to take with him for that evaluation. No indication for any surgical debridement at the moment or amputations etc. I do not believe the patient needs admission for IV antibiotics right now. Return precautions including worsening redness that is off of his baseline pus coming from his wounds high fevers ischemia or dusky areas with necrosis he will come back to the emergency department and specifically he needs to go somewhere where his vascular surgeon is. Patient was discharged in stable condition. Critical Care Critical Care Time Critical Care Time: No
[2023-11-10 16:16] LABS: Basophils # 0.1 K/mm3 (0-0.2); Basophils % 0.5 % (0.1-2.0); Eosinophils # 0.3 K/mm3 (0.0-0.4); Eosinophils % 2.2 % (0.1-12.0); Hematocrit 40.8 % (42.0-52.0); Hemoglobin 12.9 g/dL (14.1-18.0); Lymphocytes # 1.9 K/mm3 (0.7-4.5); Lymphocytes % 13.5 % (10-50); Mean Corpuscular HGB Conc 31.6 g/dL (31.8-35.4); Mean Corpuscular Hemoglobin 28.6 pg (27.0-31.2); Mean Corpuscular Volume 90.4 fl (80-94); Mean Platelet Volume 7.1 fl (7.4-10.4); Monocytes # 0.7 K/mm3 (0.1-1.0); Monocytes % 4.8 % (1.7-9.3); Neutrophils # 11.2 K/mm3 (1.8-7.8); Neutrophils % 78.9 % (37.0-80.0); Red Blood Count 4.51 M/mm3 (4.60-6.20); Red Cell Distribution Width 15.3 % (11.5-17.5); White Blood Count 14.2 K/mm3 (4.8-10.8)
[2023-11-10] MEDS: MORPHINE 4MG/ML SYRINGE 4 MG IV (16:16)
[2023-11-10] MEDS: LACTATED RINGERS 1000ML 500 ML 999 ML IV (16:16)
[2023-11-10] MEDS: ONDANSETRON 4MG/2ML VIAL 4 MG IV (16:16)
[2023-11-10 16:25] LABS: Platelet Count 841 K/mm3 (142-424)
[2023-11-10 16:27] LABS: Alanine Aminotransferase 24 U/L (12-78); Albumin Level 3.9 g/dl (3.5-5.0); Albumin/Globulin Ratio 0.8 (1.1-1.8); Alkaline Phosphatase 130 U/L (38-126); Anion Gap 16.6 mEq/L (5-15); Aspartate Amino Transferase 29 U/L (17-59); Bilirubin,Total 0.4 mg/dl (0.2-1.3); Blood Urea Nitrogen 30 mg/dl (9-20); Calcium 8.9 mg/dl (8.4-10.2); Carbon Dioxide 18 mmol/L (22.0-30.0); Chloride 108 mmol/L (98-107); Creatine Kinase 45 U/L (55-170); Creatinine Clearance Estimated 57 mL/min (50-200); Estimated Glomerular Filt Rate 39 ml/min (>60); GFR (African American) 48 ML/MIN (>60); Glucose 120 mg/dl (74-100); Lactic Acid 1.9 mmol/L (0.7-2.1); Potassium 4.6 mmoL/L (3.5-5.1); Sodium 138 mmol/L (136-145); Total Protein,Serum 8.9 g/dl (6.3-8.2)
[2023-11-10 16:30] VITALS: BP 143/62; PULSE 78; O2SAT 98
[2023-11-10 16:33] LABS: C-Reactive Protein 67.7 mg/L (0-4)
[2023-11-10 16:58] LABS: Erythrocyte Sedimentation Rate 26 mm/hr (0-20)
[2023-11-10 17:00] VITALS: BP 147/73; PULSE 77; O2SAT 99
[2023-11-10 18:01] VITALS: BP 134/80; PULSE 89; O2SAT 97
[2023-11-10] MEDS: 0.9 % SODIUM CHLORIDE 50 ML VIAL IV (18:02)
[2023-11-10] MEDS: SODIUM CHLORIDE 0.9% 10ML SYR (RAD ONLY) 10 ML IV (18:02)
[2023-11-10] MEDS: IOPAMIDOL-370 (76%);100ML BOTTLE 120 ML IV (18:03)
[2023-11-10 18:33] LABS: Microscopic, Urine URINE MICROSCOPIC (MICROSCOPIC)
[2023-11-10 18:38] LABS: Appearance,Urine CLEAR (Clear); Bilirubin,Urine Negative (Negative); Blood, Urine Negative (Negative); Color,Urine YELLOW (Yellow); Glucose,Urine (UA) Negative (Negative); Ketones,Urine Negative (Negative); Leukocyte Esterase,Urine Negative (Negative); Nitrate,Urine Negative (Negative); PH,Urine 5.5 (5.0-8.5); Protein,Urine TRACE (Negative); Urobilinogen,Urine 0.2 EU/dl (0.2)
[2023-11-10 18:51] LABS: Squamous Epithelial Cell,Urine Occasional #/hpf (0-5)
[2023-11-10 19:38] VITALS: BP 108/81; PULSE 93; RESP 20; TEMP 36.6; O2SAT 97
--- NOTE | 2023-11-16 11:13 | PC.NURSE ---
wound culture results reviewed with , pt dc with augmentin and levaqcornell, NTD
== END 2023-11-10 19:56 | disposition home or self-care (01) ==
PROVIDERS: Emergency Provider Student in an Organized Health Care Education/Training Program; PCP Internal Medicine Adolescent Medicine
DX: E11.622 Type 2 diabetes mellitus with other skin ulcer (principal); L97.319 Non-pressure chronic ulcer of right ankle with unspecified severity; L97.329 Non-pressure chronic ulcer of left ankle with unspecified severity; E11.51 Type 2 diabetes mellitus with diabetic peripheral angiopathy without gangrene; R01.1 Cardiac murmur, unspecified; I10 Essential (primary) hypertension; N40.0 Benign prostatic hyperplasia without lower urinary tract symptoms
CPT/HCPCS: 75635; 80053; 81001; 82550; 83605; 85025; 85651; 86140; 87070; 87205; 96374; 96375; 99285; J2405; Q9967

== ENCOUNTER 2024-01-04 12:09 | Emergency (ER) | payer MEDICARE, SELFPAY ==
[2024-01-04] VITALS (7 sets, daily range): BP systolic 137–160; BP diastolic 63–81; PULSE 82–91; RESP 16–18; TEMP 36.6–36.7; O2SAT 97–98; BMI 39.5
[2024-01-04 12:35] LABS: Basophils # 0.1 K/mm3 (0-0.2); Eosinophils # 0.7 K/mm3 (0.0-0.4); Eosinophils % 5.2 % (0.1-12.0); Hemoglobin 11.7 g/dL (14.1-18.0); Lymphocytes # 2.2 K/mm3 (0.7-4.5); Lymphocytes % 17.7 % (10-50); Mean Corpuscular HGB Conc 31.6 g/dL (31.8-35.4); Mean Corpuscular Hemoglobin 28.5 pg (27.0-31.2); Mean Platelet Volume 7.9 fl (7.4-10.4); Monocytes # 0.6 K/mm3 (0.1-1.0); Monocytes % 4.6 % (1.7-9.3); Neutrophils % 71.5 % (37.0-80.0); Platelet Count 668 K/mm3 (142-424); Red Blood Count 4.12 M/mm3 (4.60-6.20); White Blood Count 12.6 K/mm3 (4.8-10.8)
[2024-01-04 12:41] LABS: Alanine Aminotransferase 20 U/L (12-78); Albumin Level 3.8 g/dl (3.5-5.0); Albumin/Globulin Ratio 0.9 (1.1-1.8); Alkaline Phosphatase 105 U/L (38-126); Anion Gap 18.2 mEq/L (5-15); Aspartate Amino Transferase 21 U/L (17-59); Bilirubin,Total 0.4 mg/dl (0.2-1.3); Blood Urea Nitrogen 24 mg/dl (9-20); Calcium 8.6 mg/dl (8.4-10.2); Carbon Dioxide 19 mmol/L (22.0-30.0); Chloride 108 mmol/L (98-107); Creatinine Clearance Estimated 69 mL/min (50-200); Estimated Glomerular Filt Rate 45 ml/min (>60); GFR (African American) 55 ML/MIN (>60); Globulin 4.2 g/dL (1.3-3.2); Glucose 136 mg/dl (74-100); Potassium 4.2 mmoL/L (3.5-5.1); Sodium 141 mmol/L (136-145)
[2024-01-04 12:46] LABS: C-Reactive Protein 95.9 mg/L (0-4)
--- NOTE | 2024-01-04 13:10 | XR_ITS ---
FINAL REPORT CLINICAL HISTORY: pain, skin infection FINDINGS: Left tibia fibula Two views were obtained. There is no acute fracture or dislocation. There are mild degenerative changes. No soft tissue abnormality is identified. IMPRESSION: No acute process. Reviewed, Interpreted and Dictated by Jaiden Mustafa III, MD Transcribed by Mehnaz Prabhakar Authenticated and [facility]
--- NOTE | 2024-01-04 13:10 | XR_ITS ---
FINAL REPORT CLINICAL HISTORY: pain, skin infection FINDINGS: Right tibia fibula Two views were obtained. There is no acute fracture or dislocation. There are mild degenerative changes. No soft tissue abnormality is identified. IMPRESSION: No acute process. Reviewed, Interpreted and Dictated by Jaiden Mustafa III, MD Transcribed by Mehnaz Prabhakar Authenticated and [facility]
--- NOTE | 2024-01-04 13:10 | XR_ITS ---
FINAL REPORT CLINICAL HISTORY: pain, infection FINDINGS: Right foot Three views were obtained. There is no acute fracture or dislocation. There are mild and moderate degenerative changes, greatest at the 1st metatarsophalangeal joint. No soft tissue abnormality is identified. IMPRESSION: No acute process. Reviewed, Interpreted and Dictated by Jaiden Mustafa III, MD Transcribed by Mehnaz Prabhakar Authenticated and [facility]
--- NOTE | 2024-01-04 13:10 | XR_ITS ---
FINAL REPORT CLINICAL HISTORY: pain, infection FINDINGS: Left foot Three views were obtained. There is no acute fracture or dislocation. There are mild degenerative changes. Plantar calcaneal spur is identified. There is calcification in the region of the distal Achilles tendon. IMPRESSION: No acute process. Reviewed, Interpreted and Dictated by Jaiden Mustafa III, MD Transcribed by Mehnaz Prabhakar Authenticated and [facility]
[2024-01-04 13:32] LABS: Erythrocyte Sedimentation Rate 74 mm/hr (0-20)
--- NOTE | 2024-01-04 13:42 | HMH.EDGENADL ---
Discharge Plan Disposition Patient Disposition: Home, Self-Care Prescriptions Prescriptions: New levofloxacin 750 mg tablet 750 mg PO DAILY 7 Days Qty: 7 0RF No Action fluticasone propionate 50 mcg/actuation spray,suspension 1 spr intranasal HS PRN (Reason: Congestion) 60 Days Qty: 16 Patient Comments: one spray each side carvedilol 25 mg tablet 25 mg PO DAILY levothyroxine 75 mcg tablet 75 mcg PO DAILY Patient Comments: TAKE 1 TABLET BY MOUTH ONCE DAILY cholecalciferol (vitamin D3) 1,250 mcg (50,000 unit) capsule 1,250 mcg PO Patient Comments: TAKE 1 CAPSULE BY MOUTH TWICE A WEEK Steglatro 15 mg tablet PO Patient Comments: TAKE 1 TABLET BY MOUTH ONCE DAILY IN THE MORNING tamsulosin 0.4 MG capsule 0.8 mg PO HS peg 3350-electrolytes 4,000 ML recon soln 240 ml PO Q10M Rx Instructions: until fecal effluent is clear levofloxacin 750 mg tablet 750 mg PO DAILY 7 Days Qty: 7 0RF Referrals Follow up/Referrals: Gasper Montana MD [Primary Care Provider] - See instructions Keila Brito DPM [Staff Physician] - See instructions Activity Restrictions/Add. Instructions Additional Instructions/Restrictions: Call your family doctor to establish care for this visit to the emergency department and schedule follow-up within 48 hours to ensure improvement. If you have any worsening of your condition or any other concerning signs or symptoms, return to the emergency department or your primary care doctor for further evaluation. Talk to your family doctor and Dr. Brito about your inflammation markers uptrending and following these. Clinical Impressions Clinical Impression: Acute pain of right knee, Wound of foot Instructions Patient Instructions: DI for Laceration Repair Discharge ED Provider: Samantha Thibodeaux General Adult HPI <Samantha Thibodeaux MD - Last Filed: 01/04/24 15:21> General Chief complaint: Wound/Laceration Stated complaint: sores on legs knee pain Time Seen by Provider: 01/04/24 12:33 Mode of Arrival: Ambulatory Source of Information: Patient Limitations: No Limitations Description of Symptoms (Recalled from ER Triage Doc. by RN): Patient report left lower leg wounds for months. States he saw Dr. Montana today who recommended he come to the ER for further evaluation. State he has been going to the wound care clinic 3 days a week and was seen yesterday. History of Present Illness HPI narrative: 78-year-old male with history of chronic lower leg wounds presents to the ER from Dr. Montana's office for concerns of worsening leg wounds and pain. Patient states he had these wounds for years, he states in the last 2 months they have opened up to ulcerated, weeping lesions. He states he has been going to wound care for them but pain has worsened in the last week. He went to his primary care's office for knee pain but the primary care physician called me in the ER and told me he was sending the patient to be evaluated for concerns of worsening infection. He states he does not believe that he is septic, however he would like him evaluated with basic labs and inflammatory markers. Patient is amenable to this plan. Related Data Home Medications Medication Instructions Recorded Confirmed fluticasone propionate 50 1 spr intranasal HS PRN Congestion 01/17/18 07/21/23 mcg/actuation nasal 60 days ##16 spray,suspension tamsulosin 0.4 mg capsule 0.8 mg PO HS PROSTATE 04/04/18 07/21/23 carvedilol 25 mg tablet 25 mg PO DAILY blood pressure 07/15/21 07/21/23 peg 3350-electrolytes 236 240 ml PO Q10M bowel prep 04/07/22 07/21/23 gram-22.74 gram-6.74 gram-5.86 gram solution cholecalciferol (vitamin D3) 1,250 1,250 mcg PO 07/01/22 07/21/23 mcg (50,000 unit) capsule levothyroxine 75 mcg tablet 75 mcg PO DAILY 07/01/22 07/21/23 ertugliflozin 15 mg tablet mg PO 12/02/23 (Steglatro) Previous Rx's Medication Instructions Recorded levofloxacin 750 mg tablet 750 mg PO DAILY 7 days #7 tabs 11/10/23 levofloxacin 750 mg tablet 750 mg PO DAILY 7 days #7 tabs 01/04/24 Allergies Allergy/AdvReac Type Severity Reaction Status Date / Time Antihistamines - Alkylamine Allergy Mild MADE SKIN Verified 12/02/23 15:25 [ANTIHISTAMINES - ALKYLAMINE] FEEL LIKE ON FIRE NSAIDS (Non-Steroidal AdvReac Severe kidney Verified 12/02/23 15:25 Anti-Inflamma failure [facility] <Samantha Thibodeaux MD - Last Filed: 01/04/24 15:21> [facility] Disclaimer: The information contained in this section may have been updated after the patient was seen, as this information can be updated by other users. Medical History Arthritis PAD (peripheral artery disease) HTN (hypertension), benign Heart murmur T2DM (type 2 diabetes mellitus) BPH (benign prostatic hyperplasia) Peripheral vascular disease Surgical History Hx of colonoscopy History of total left hip replacement Family History Other Cancer Heart attack Social History Smoking Status: Unknown if ever smoked alcohol intake: never substance use type: denies use current occupational status: retired Travel in the last 8 weeks: None household members: none housing: house current occupation: [employer] current occupational exposures/hazards: No caffeine: Yes <Samantha Thibodeaux MD - Last Filed: 01/04/24 15:21> ROS Obtained: Yes All systems reviewed & no additional complaints except as documented Constitutional Constitutional: Denies chills, Denies fever(s), Denies headache(s) and Denies weakness Eyes Eyes: Denies change in vision ENT Ears, Nose, Mouth, and Throat: Denies dizziness, Denies headache(s), Denies nasal congestion and Denies sore throat Cardiovascular Cardiovascular: Denies chest pain, Denies dyspnea and Denies leg edema Respiratory Respiratory: Denies cough and Denies dyspnea Gastrointestinal Gastrointestingal: Denies constipation, diarrhea, nausea or vomiting Genitourinary Male Genitourinary: Denies difficulty urinating Musculoskeletal Musculoskeletal: Denies myalgias, Denies numbness and Denies tingling Integumentary/Breasts Skin/Breast: Denies change in pigmentation and Reports other (Weeping leg wounds, pain) Neurologic Neurologic: Denies dizziness, Denies headache(s), Denies numbness, Denies tingling and Denies weakness Physical Exam <Samantha Thibodeaux MD - Last Filed: 01/04/24 15:21> General General appearance: alert, in no apparent distress and other (Chronically ill-appearing) Head Head exam: atraumatic and normocephalic Eye Eye exam: Present PERRL and EOMI ENT ENT exam: Present mucous membranes moist Neck Neck exam: Present normal inspection and full ROM Chest Chest inspection: Present symmetric chest wall rise Respiratory Respiratory exam: Absent respiratory distress or stridor Cardiovascular Cardiovascular exam: Present regular rate and normal rhythm Abdominal Exam Abdominal exam: Present soft; Absent distention or tenderness Extremities Exam Extremities exam: Present full ROM Neurological Exam Neurological exam: Present alert, oriented X3 and other (Neurovascularly intact distal to wounds); Absent motor sensory deficit Psychiatric Psychiatric exam: Present normal affect and normal mood Skin Skin exam: Present warm, dry, erythema (Surrounding the edges of the open wounds, patient has lymphedema on bilateral lower extremities) and other (Bilateral distal lower extremities demonstrate large ulcerating wounds from the ankles to the mid rivera, on the right leg they extend more posteriorly than on the left. They are weeping with some purulence) Medical Decision Making <Samantha Thibodeaux MD - Last Filed: 01/04/24 15:21> Real Zepeda Pt receiving controlled substance: No Vital Signs: 01/04/24 12:10 01/04/24 12:31 01/04/24 13:01 Temperature 97.9 F Temperature Source Oral Pulse Rate 84 90 Pulse Rate [Radial] 82 Respiratory Rate 18 Blood Pressure 137/63 147/72 H Blood Pressure [Right Arm] 160/72 H Blood Pressure Mean Blood Pressure Mean [Right Arm] 101 Blood Pressure Source [Right Arm] Automatic Cuff Blood Pressure Position [Right Arm] Sitting 02 Sat by Pulse Oximetry 98 98 97 Oxygen Delivery Method Room Air Room Air Room Air 01/04/24 13:30 01/04/24 14:00 01/04/24 14:31 Temperature Temperature Source Pulse Rate 89 91 H 88 Pulse Rate [Radial] Respiratory Rate 16 Blood Pressure 156/77 H 158/81 H 151/75 H Blood Pressure [Right Arm] Blood Pressure Mean 110 Blood Pressure Mean [Right Arm] Blood Pressure Source [Right Arm] Blood Pressure Position [Right Arm] 02 Sat by Pulse Oximetry 97 98 98 Oxygen Delivery Method Room Air Room Air Lab Data Lab Results 01/04/24 12:20: WBC 12.6 H, RBC 4.12 L, Hgb 11.7 L, Hct 37.0 L, MCV 90.0, MCH 28.5, MCHC 31.6 L, RDW 17.0, Plt Count 668 H, MPV 7.9, Neut % (Auto) 71.5, Lymph % (Auto) 17.7, [place] % (Auto) 4.6, Eos % (Auto) 5.2, Baso % (Auto) 1.0, Neut # (Auto) 9.0 H, Lymph # (Auto) 2.2, [place] # (Auto) 0.6, Eos # (Auto) 0.7 H, Baso # (Auto) 0.1, ESR 74 H, Sodium 141, Potassium 4.2, Chloride 108 H, Carbon Dioxide 19 L, Anion Gap 18.2 H, BUN 24 H, Creatinine 1.50 H, Estimated Creat Clear 69, Estimated GFR 45 L, Est GFR ( Amer) 55 L, Glucose 136 H, Calcium 8.6, Total Bilirubin 0.4, AST 21, ALT 20, Alkaline Phosphatase 105, C-Reactive Protein 95.9 H, Total Protein 8.0, Albumin 3.8, Globulin 4.2 H, Albumin/Globulin Ratio 0.9 L 01/04/24 12:20 01/04/24 12:20 Orders (Tests/Meds): ED MEDICATIONS Generic Name Dose Route Start Last Admin Trade Name Freq PRN Reason Stop Dose Admin Sodium Chloride 10 ml 01/04/24 12:28 Sodium Chloride 0.9% 10ml Flush Syringe IV 02/03/24 12:27 NEEDED PRN Maintain IV Site Discontinued Medications Generic Name Dose Route Start Last Admin Trade Name Freq PRN Reason Stop Dose Admin Acetaminophen 1,000 mg 01/04/24 14:28 01/04/24 14:33 Acetaminophen 500mg Tab PO 01/04/24 14:29 1,000 mg ONCE ONE Administration Levofloxacin 750 mg 01/04/24 14:15 01/04/24 14:33 Levofloxacin 750 Mg Tablet PO 01/04/24 14:16 750 mg ONCE ONE Administration ORDERS Category Date Time Status XR foot LT min 3V Stat Exams 01/04/24 13:10 Completed XR foot RT min 3V Stat Exams 01/04/24 13:10 Completed XR tibia fibula LT 2V Stat Exams 01/04/24 13:10 Completed XR tibia fibula RT 2V Stat Exams 01/04/24 13:10 Completed C-Reactive Protein Stat Lab 01/04/24 12:20 Completed Complete Blood Count Auto Diff Stat Lab 01/04/24 12:20 Completed Comprehensive Metabolic Panel Stat Lab 01/04/24 12:20 Completed Erythrocyte Sedimentation Rate Stat Lab 01/04/24 12:20 Completed Blood Culture Stat Micro 01/04/24 12:25 Received Wound Culture and Gram Stain Stat Micro 01/04/24 12:17 Ordered Medical Decision Narrative: In summary, this 78year old male with a history of diabetes, chronic leg ulcers, lymphedema, all of which are comorbidities of his current condition and increases overall morbidity presents to the emergency department today with concerns of worsening leg wounds, pain. I discussed this case with patient's PCP prior to patient's arrival, see HPI for details. On initial evaluation patient is hemodynamically stable, afebrile, has significant wounds on the distal bilateral lower extremities with weeping, mild surrounding erythema, lymphedema of the bilateral lower extremities, however patient is neurovascularly intact distal to the wounds. Wounds are not exquisitely painful, legs are not exquisitely painful. Differential diagnosis includes but is not limited to cellulitis, I considered but do not appreciate any findings of abscess, ulcerated wounds, I considered underlying osteomyelitis though I have lower concerns for it, I also considered necrotizing fasciitis, however patient has not had rapid progression of symptoms, fevers, he does not have severe associated pain, I do not believe he requires CT imaging to evaluate for this at this time due to very low clinical suspicion. Based on these concerns, I ordered basic labs, inflammatory markers, x-ray imaging of the bilateral lower extremities to evaluate for osteomyelitis. In discussion with Dr. Shankar, he stated patient has previously been on augmentin and levofloxacin. I believe patient should be covered for Pseudomonas given his history of diabetes. Levofloxacin will be the most appropriate antibiotic. Labs personally reviewed demonstrate WBC 12.6, actually decreased from 2 months ago, persistent anemia, nonactionable, platelet count is high but improved from prior, ESR elevated at 74, up from 26 2 months ago, CRP also elevated to 95.9 compared to 67.7 2 months ago. Overall, inflammatory markers are slightly worsened from previous, however WBC is improved. I do not believe patient has new acute disease but I do believe he requires antibiotic treatment. I personally interpreted the x-rays of the bilateral lower extremities and do not appreciate osteomyelitis. Radiology read pending. Patient received 1 dose of levofloxacin in the ER. Patient handed off to Dr. Delgado at physician shift change for further management and disposition pending final radiology read of xrays <Juan José Delgado MD - Last Filed: 01/04/24 16:32> Vital Signs: 01/04/24 12:10 01/04/24 12:31 01/04/24 13:01 Temperature 97.9 F Temperature Source Oral Pulse Rate 84 90 Pulse Rate [Radial] 82 Respiratory Rate 18 Blood Pressure 137/63 147/72 H Blood Pressure [Right Arm] 160/72 H Blood Pressure Mean Blood Pressure Mean [Right Arm] 101 Blood Pressure Source [Right Arm] Automatic Cuff Blood Pressure Position [Right Arm] Sitting 02 Sat by Pulse Oximetry 98 98 97 Oxygen Delivery Method Room Air Room Air Room Air 01/04/24 13:30 01/04/24 14:00 01/04/24 14:31 Temperature Temperature Source Pulse Rate 89 91 H 88 Pulse Rate [Radial] Respiratory Rate 16 Blood Pressure 156/77 H 158/81 H 151/75 H Blood Pressure [Right Arm] Blood Pressure Mean 110 Blood Pressure Mean [Right Arm] Blood Pressure Source [Right Arm] Blood Pressure Position [Right Arm] 02 Sat by Pulse Oximetry 97 98 98 Oxygen Delivery Method Room Air Room Air Lab Data Lab Results 01/04/24 12:20: WBC 12.6 H, RBC 4.12 L, Hgb 11.7 L, Hct 37.0 L, MCV 90.0, MCH 28.5, MCHC 31.6 L, RDW 17.0, Plt Count 668 H, MPV 7.9, Neut % (Auto) 71.5, Lymph % (Auto) 17.7, [place] % (Auto) 4.6, Eos % (Auto) 5.2, Baso % (Auto) 1.0, Neut # (Auto) 9.0 H, Lymph # (Auto) 2.2, [place] # (Auto) 0.6, Eos # (Auto) 0.7 H, Baso # (Auto) 0.1, ESR 74 H, Sodium 141, Potassium 4.2, Chloride 108 H, Carbon Dioxide 19 L, Anion Gap 18.2 H, BUN 24 H, Creatinine 1.50 H, Estimated Creat Clear 69, Estimated GFR 45 L, Est GFR ( Amer) 55 L, Glucose 136 H, Calcium 8.6, Total Bilirubin 0.4, AST 21, ALT 20, Alkaline Phosphatase 105, C-Reactive Protein 95.9 H, Total Protein 8.0, Albumin 3.8, Globulin 4.2 H, Albumin/Globulin Ratio 0.9 L Orders (Tests/Meds): ED MEDICATIONS Generic Name Dose Route Start Last Admin Trade Name Javad PRN Reason Stop Dose Admin Sodium Chloride 10 ml 01/04/24 12:28 Sodium Chloride 0.9% 10ml Flush Syringe IV 02/03/24 12:27 NEEDED PRN Maintain IV Site Discontinued Medications Generic Name Dose Route Start Last Admin Trade Name Javad PRN Reason Stop Dose Admin Acetaminophen 1,000 mg 01/04/24 14:28 01/04/24 14:33 Acetaminophen 500mg Tab PO 01/04/24 14:29 1,000 mg ONCE ONE Administration Levofloxacin 750 mg 01/04/24 14:15 01/04/24 14:33 Levofloxacin 750 Mg Tablet PO 01/04/24 14:16 750 mg ONCE ONE Administration ORDERS Category Date Time Status XR foot LT min 3V Stat Exams 01/04/24 13:10 Completed XR foot RT min 3V Stat Exams 01/04/24 13:10 Completed XR tibia fibula LT 2V Stat Exams 01/04/24 13:10 Completed XR tibia fibula RT 2V Stat Exams 01/04/24 13:10 Completed C-Reactive Protein Stat Lab 01/04/24 12:20 Completed Complete Blood Count Auto Diff Stat Lab 01/04/24 12:20 Completed Comprehensive Metabolic Panel Stat Lab 01/04/24 12:20 Completed Erythrocyte Sedimentation Rate Stat Lab 01/04/24 12:20 Completed Blood Culture Stat Micro 01/04/24 12:25 Received Wound Culture and Gram Stain Stat Micro 01/04/24 12:17 Ordered Medical Decision Narrative: In summary, this 78year old male with a history of diabetes, chronic leg ulcers, lymphedema, all of which are comorbidities of his current condition and increases overall morbidity presents to the emergency department today with concerns of worsening leg wounds, pain. I discussed this case with patient's PCP prior to patient's arrival, see HPI for details. On initial evaluation patient is hemodynamically stable, afebrile, has significant wounds on the distal bilateral lower extremities with weeping, mild surrounding erythema, lymphedema of the bilateral lower extremities, however patient is neurovascularly intact distal to the wounds. Wounds are not exquisitely painful, legs are not exquisitely painful. Differential diagnosis includes but is not limited to cellulitis, I considered but do not appreciate any findings of abscess, ulcerated wounds, I considered underlying osteomyelitis though I have lower concerns for it, I also considered necrotizing fasciitis, however patient has not had rapid progression of symptoms, fevers, he does not have severe associated pain, I do not believe he requires CT imaging to evaluate for this at this time due to very low clinical suspicion. Based on these concerns, I ordered basic labs, inflammatory markers, x-ray imaging of the bilateral lower extremities to evaluate for osteomyelitis. In discussion with Dr. Shankar, he stated patient has previously been on augmentin and levofloxacin. I believe patient should be covered for Pseudomonas given his history of diabetes. Levofloxacin will be the most appropriate antibiotic. Labs personally reviewed demonstrate WBC 12.6, actually decreased from 2 months ago, persistent anemia, nonactionable, platelet count is high but improved from prior, ESR elevated at 74, up from 26 2 months ago, CRP also elevated to 95.9 compared to 67.7 2 months ago. Overall, inflammatory markers are slightly worsened from previous, however WBC is improved. I do not believe patient has new acute disease but I do believe he requires antibiotic treatment. I personally interpreted the x-rays of the bilateral lower extremities and do not appreciate osteomyelitis. Radiology read pending. Patient received 1 dose of levofloxacin in the ER. Patient handed off to Dr. Delgado at physician shift change for further management and disposition pending final radiology read of xrays. Sandy: I assumed primary responsibility for this patient after signout from previous physician. X-rays negative on independent interpretation. Independent interpretation of workup demonstrates elevated white count, increased markers of inflammation concerning for possibly developing soft tissue versus bone infection. Because patient has no systemic signs or symptoms, I also feel he is appropriate for outpatient management with PCP and podiatry. Further conversation with family and patient demonstrate the patient was actually most concerned about right knee pain. I independently interpreted x-rays of right tib-fib and within the confines of the study, I do not see knee effusion, tibial plateau lesion, obvious severe degenerative arthritis, or any other lesion explaining patient's knee pain. Conversation was had with patient and family whether or not to get dedicated knee films, they opted out after decision making between myself and them. I feel this is appropriate. Because patient at baseline without signs or symptoms of clinical decompensation, deemed appropriate for discharge. Results were relayed to patient who voiced understanding and were agreeable to outpatient management and follow up. I discussed my clinical impression with patient and answered all questions. At this time, the evidence for any other entities in the differential is insufficient to warrant any further testing or ED observation. This was explained as well. Advisory was given that persistent or worsening symptoms require further evaluation. I confirmed the understanding of this discussion. Critical Care <aSmantha Thibodeaux MD - Last Filed: 01/04/24 15:21> Critical Care Time Critical Care Time: No
[2024-01-04] MEDS: levoFLOXacin 750 MG TABLET PO (14:33)
[2024-01-04] MEDS: ACETAMINOPHEN 500MG TAB 1000 MG PO (14:33)
--- NOTE | 2024-01-04 15:55 | PC.NURSE ---
Called RAD to have them check on pt XRAY
== END 2024-01-04 16:38 | disposition home or self-care (01) ==
PROVIDERS: Emergency Provider Emergency Medicine; PCP Internal Medicine Adolescent Medicine
DX: M25.561 Pain in right knee (principal); L97.919 Non-pressure chronic ulcer of unspecified part of right lower leg with unspecified severity; L97.929 Non-pressure chronic ulcer of unspecified part of left lower leg with unspecified severity; R79.82 Elevated C-reactive protein (CRP); R70.0 Elevated erythrocyte sedimentation rate; I89.0 Lymphedema, not elsewhere classified; E11.9 Type 2 diabetes mellitus without complications; I73.89 Other specified peripheral vascular diseases; I10 Essential (primary) hypertension; Z79.84 Long term (current) use of oral hypoglycemic drugs
CPT/HCPCS: 73590; 73630; 80053; 85025; 85651; 86140; 87040; 99284

== ENCOUNTER 2024-01-20 11:35 | Outpatient (CLI) | payer MEDICARE, SELFPAY ==
--- NOTE | 2024-01-20 11:42 | XR_ITS ---
FINAL REPORT CLINICAL HISTORY: ACUTE PAIN OF LT KNEE COMPARISON: None FINDINGS: LEFT KNEE 3 views of the left knee were obtained. There is no acute fracture or dislocation. There is moderate osteophyte formation along the undersurface of the patella with moderate joint space narrowing. There is no evidence of effusion. There is mild medial and lateral compartment joint space narrowing. There is no soft tissue abnormality. 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 Reviewed, Interpreted and Dictated by Lior Magdaleno MD Transcribed by Libertad Tineo Authenticated and [facility]
--- NOTE | 2024-01-20 11:42 | XR_ITS ---
FINAL REPORT CLINICAL HISTORY: ACCUTE PAIN OF RT KNEE COMPARISON: None FINDINGS: 3 views of the right knee were obtained. There is no acute fracture or dislocation. There is moderate osteophyte formation along the undersurface of the patella with moderate joint space narrowing. There is no evidence of effusion. There is mild medial and lateral compartment joint space narrowing. There is no soft tissue abnormality. 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 Reviewed, Interpreted and Dictated by Lior Magdaleno MD Transcribed by Libertad Tineo Authenticated and [facility]
== END 2024-01-20 23:59 | disposition home or self-care (01) ==
LOC: RAD 11:36
PROVIDERS: PCP Internal Medicine Adolescent Medicine; Visit Provider Internal Medicine Adolescent Medicine
DX: M25.561 Pain in right knee (principal)
CPT/HCPCS: 73562

== ENCOUNTER 2024-01-31 15:10 | Emergency (ER) | payer MEDICARE, SELFPAY ==
[2024-01-31 16:00] VITALS: BP 136/68; PULSE 82; RESP 18; TEMP 36.4; O2SAT 98; BMI 38.7
[2024-01-31 16:09] LABS: POC Glucose,Bedside 144 (70-110)
--- NOTE | 2024-01-31 16:24 | ED_ITS ---
Discharge Plan Disposition Patient Disposition: Home, Self-Care Condition: Good Prescriptions Prescriptions: No Action fluticasone propionate 50 mcg/actuation spray,suspension 1 spr intranasal HS PRN (Reason: Congestion) 60 Days Qty: 16 Patient Comments: one spray each side carvedilol 25 mg tablet 25 mg PO DAILY levothyroxine 75 mcg tablet 75 mcg PO DAILY Patient Comments: TAKE 1 TABLET BY MOUTH ONCE DAILY cholecalciferol (vitamin D3) 1,250 mcg (50,000 unit) capsule 1,250 mcg PO Patient Comments: TAKE 1 CAPSULE BY MOUTH TWICE A WEEK Steglatro 15 mg tablet PO Patient Comments: TAKE 1 TABLET BY MOUTH ONCE DAILY IN THE MORNING tamsulosin 0.4 MG capsule 0.8 mg PO HS peg 3350-electrolytes 4,000 ML recon soln 240 ml PO Q10M Rx Instructions: until fecal effluent is clear levofloxacin 750 mg tablet 750 mg PO DAILY 7 Days Qty: 7 0RF levofloxacin 750 mg tablet 750 mg PO DAILY 7 Days Qty: 7 0RF Referrals Follow up/Referrals: Gasper Montana MD [Primary Care Provider] - See instructions Clinical Impressions Clinical Impression: Elevated blood sugar Instructions Patient Instructions: DI for Diabetes Type 2 Discharge ED Provider: [place] Carlson [facility] [place] General Stated complaint: wants diabetes check, weak Mode of Arrival: Ambulatory Source of Information: Patient Limitations: No Limitations Time Seen by Provider: 01/31/24 16:24 Description of Symptoms (Recalled from Triage Doc. by RN): PATIENT STATES HE HAS NOT BEEN FEELING WELL. HE REPORTS BEING AT THE WOUND CARE CLINIC AND WANTED HIS BLOOD SUGAR CHECKED, BUT WAS TOLD THEY DID NOT HAVE A GLUCOMETER AND SENT HIM HERE TO GET CHECKED HEENT Symptoms (Recalled from RN notes): No Resp Symptoms (Recalled from RN notes): No Skin Symptoms (Recalled from RN notes): No MS Symptoms (Recalled from RN notes): No Functional Status (Recalled from RN notes): WNL History of Present Illness Provider Complaint: pt reports that he had a cortisone in his knee a few days ago and was told that it could raise his blood sugar. He reports that he started feeling bad in the wound care clinic and thought perhaps it was his blood sugar being elevated. He wishes to have his blood sugar checked. Related Data Home Medications Medication Instructions Recorded Confirmed fluticasone propionate 50 1 spr intranasal HS PRN Congestion 01/17/18 01/27/24 mcg/actuation nasal 60 days ##16 spray,suspension tamsulosin 0.4 mg capsule 0.8 mg PO HS PROSTATE 04/04/18 01/27/24 carvedilol 25 mg tablet 25 mg PO DAILY blood pressure 07/15/21 01/27/24 peg 3350-electrolytes 236 240 ml PO Q10M bowel prep 04/07/22 01/27/24 gram-22.74 gram-6.74 gram-5.86 gram solution cholecalciferol (vitamin D3) 1,250 1,250 mcg PO 07/01/22 01/27/24 mcg (50,000 unit) capsule levothyroxine 75 mcg tablet 75 mcg PO DAILY 07/01/22 01/27/24 ertugliflozin 15 mg tablet mg PO 12/02/23 01/27/24 (Steglatro) Previous Rx's Medication Instructions Recorded levofloxacin 750 mg tablet 750 mg PO DAILY 7 days #7 tabs 11/10/23 levofloxacin 750 mg tablet 750 mg PO DAILY 7 days #7 tabs 01/04/24 Allergies Allergy/AdvReac Type Severity Reaction Status Date / Time Antihistamines - Alkylamine Allergy Mild MADE SKIN Verified 01/27/24 09:58 [ANTIHISTAMINES - ALKYLAMINE] FEEL LIKE ON FIRE NSAIDS (Non-Steroidal AdvReac Severe kidney Verified 01/27/24 09:58 Anti-Inflamma failure Worker's Comp Is this a Worker's Comp case?: No [facility] Disclaimer: The information contained in this section may have been updated after the patient was seen, as this information can be updated by other users. Medical History Arthritis PAD (peripheral artery disease) HTN (hypertension), benign Heart murmur T2DM (type 2 diabetes mellitus) BPH (benign prostatic hyperplasia) Peripheral vascular disease Surgical History Hx of colonoscopy History of total left hip replacement Family History Other Cancer Heart attack Social History Smoking Status: Unknown if ever smoked alcohol intake: never substance use type: denies use current occupational status: retired Travel in the last 8 weeks: None household members: none housing: house current occupation: [employer] current occupational exposures/hazards: No caffeine: Yes ROS Obtained: Yes All systems reviewed & no additional complaints except as documented Constitutional Constitutional: Reports system reviewed and no additional complaints, except as documented and Reports malaise Eyes Eyes: Reports system reviewed and no additional complaints, except as documented ENT Ears, Nose, Mouth, and Throat: Reports system reviewed and no additional complaints, except as documented Cardiovascular Cardiovascular: Reports system reviewed and no additional complaints, except as documented Respiratory Respiratory: Reports system reviewed and no additional complaints, except as documented Gastrointestinal Gastrointestingal: Reports system reviewed and no additional complaints, except as documented Genitourinary Male Genitourinary: Reports system reviewed and no additional complaints, except as documented Musculoskeletal Musculoskeletal: Reports system reviewed and no additional complaints, except as documented Integumentary/Breasts Skin/Breast: Reports system reviewed and no additional complaints, except as documented Comments: sees wound care for lower leg ulcerations/lymphedema Neurologic Neurologic: Reports system reviewed and no additional complaints, except as documented Endocrine Endocrine: Reports system reviewed and no additional complaints, except as d ocumented Hematologic/Lymphatic Henatologic/Lymphatic: Reports system reviewed and no additional complaints, except as documented Allergic/Immunologic Allergic/Immunologic: Reports system reviewed and no additional complaints, except as documented Physical Exam General General appearance: alert and in no apparent distress Head Head exam: atraumatic and normocephalic Eye Eye exam: Present normal appearance ENT ENT exam: Present normal exam and normal oropharynx Neck Neck exam: Present normal inspection Chest Chest inspection: Present normal inspection and symmetric chest wall rise Respiratory Respiratory exam: Present normal lung sounds bilaterally Cardiovascular Cardiovascular exam: Present regular rate and normal rhythm Abdominal Exam Abdominal exam: Present soft Extremities Exam Extremities exam: Present other (BLE wrapped from knees down.) Back Exam Back exam: Present normal inspection Neurological Exam Neurological exam: Present alert and oriented X3 Psychiatric Psychiatric exam: Present normal affect and normal mood Skin Skin exam: Present warm, dry and intact Lymphatic Lymphatic Findings: no adenopathy Medical Decision Making Eral Inquiry Pt receiving controlled substance: No Real was queried for this patient: No Vital Signs: 01/31/24 16:00 Temperature 97.5 F L Temperature Source Oral Pulse Rate [Left Brachial] 82 Respiratory Rate 18 Blood Pressure [Left Arm] 136/68 Blood Pressure Mean [Left Arm] 90 Blood Pressure Source [Left Arm] Automatic Cuff Blood Pressure Position [Left Arm] Sitting 02 Sat by Pulse Oximetry 98 Oxygen Delivery Method Room Air Lab Data Lab results reviewed: Yes I reviewed the patient's lab results. Lab Results 01/31/24 16:01: POC Glucose 144 H Orders (Tests/Meds): ORDERS Category Date Time Status POC Glucose,Bedside Routine Lab 01/31/24 16:01 Completed
[2024-01-31 16:37] VITALS: BP 136/68; PULSE 82; RESP 18; TEMP 36.4; O2SAT 98
== END 2024-01-31 16:44 | disposition home or self-care (01) ==
PROVIDERS: Emergency Provider Nurse Practitioner Family; PCP Internal Medicine Adolescent Medicine
DX: E11.65 Type 2 diabetes mellitus with hyperglycemia (principal); Z79.84 Long term (current) use of oral hypoglycemic drugs; I10 Essential (primary) hypertension; I73.9 Peripheral vascular disease, unspecified; R53.81 Other malaise
CPT/HCPCS: 82962; 99203; 99212; G0463

== ENCOUNTER 2024-05-30 13:42 | Inpatient (IN) | payer MEDICARE, SELFPAY ==
[2024-05-30 13:43] VITALS: BP 130/65; PULSE 123; RESP 24; TEMP 37.7; O2SAT 92; BMI 44.6
--- NOTE | 2024-05-30 13:49 | ECG_ITS ---
APPROVED REPORT Exam: Resting ECG HR:122 bpm ECG Measurements Heart Rate 122 AXES MS 164 P 222 QRSd 96 QRS -21 QT 306 T 83 QTc 379 Conclusion ECTOPIC ATRIAL TACHYCARDIA ANTEROSEPTAL MYOCARDIAL INFARCTION , OF INDETERMINATE AGE [40+ ms Q WAVE IN V1-V4] ABNORMAL ECG UNCONFIRMED REPORT Electronically signed by : ASHA PLASCENCIA, 05/31/2024 05:19:24
--- NOTE | 2024-05-30 13:49 | XR_ITS ---
FINAL REPORT CLINICAL HISTORY: cough COMPARISON: 09/07/2021 FINDINGS: SINGLE-VIEW CHEST There is mild cardiomegaly. The mediastinum is normal. The lungs are underinflated. There is mild bibasilar atelectasis. Finding is more evident than previous. There is no pneumothorax. IMPRESSION: Mild bibasilar atelectasis. Reviewed, Interpreted and Dictated by Lior Magdaleno MD Transcribed by Mehnaz Prabhakar Authenticated and [facility]
[2024-05-30 14:01] LABS: Basophils # 0.1 K/mm3 (0-0.2); Basophils % 0.4 % (0.1-2.0); Eosinophils # 0.3 K/mm3 (0.0-0.4); Eosinophils % 1.9 % (0.1-12.0); Hematocrit 35.4 % (42.0-52.0); Hemoglobin 11.2 g/dL (14.1-18.0); Lymphocytes # 0.6 K/mm3 (0.7-4.5); Lymphocytes % 3.5 % (10-50); Mean Corpuscular HGB Conc 31.7 g/dL (31.8-35.4); Mean Corpuscular Hemoglobin 30.1 pg (27.0-31.2); Mean Corpuscular Volume 94.8 fl (80-94); Mean Platelet Volume 8.9 fl (7.4-10.4); Monocytes # 0.7 K/mm3 (0.1-1.0); Monocytes % 3.9 % (1.7-9.3); Neutrophils # 15.7 K/mm3 (1.8-7.8); Neutrophils % 90.4 % (37.0-80.0); Platelet Count 395 K/mm3 (142-424); Red Blood Count 3.74 M/mm3 (4.60-6.20); White Blood Count 17.4 K/mm3 (4.8-10.8)
--- NOTE | 2024-05-30 14:01 | CT_ITS ---
FINAL REPORT TECHNIQUE: The patient was injected with IV contrast. Axial images were obtained through the chest in a PE protocol. 3-D reconstruction images were also performed. Individualized dose reduction techniques using automated exposure control or adjustment of the MA and/or KV according to patient's size were employed. CLINICAL HISTORY: tachy/soa COMPARISON: None FINDINGS: Mediastinal vasculature is adequately opacified. Images are degraded by motion artifact, somewhat limiting evaluation of segmental and subsegmental vessels. No pulmonary artery filling defects are identified to suggest PE. There is no aortic dissection. There is no axillary adenopathy. There is no hilar or mediastinal adenopathy. The heart size is normal. Small bilateral pleural effusions are present. Limited images of the upper abdomen are unremarkable. There are ground glass and interstitial opacities noted bilaterally, that likely represent either edema or pneumonitis. IMPRESSION: Exam somewhat limited by motion artifact. No definite pulmonary artery defects are identified to suggest pulmonary emboli. No aortic dissection or aneurysm. Ground glass and interstitial opacities noted bilaterally, likely represent either edema or pneumonitis. Reviewed, Interpreted and Dictated by Lior Magdaleno MD Transcribed by Haley Rene Authenticated and [facility]
[2024-05-30 14:03] LABS: MANUAL DIFFERENTIAL MANUAL DIFFERENTIAL (MANUAL DIFF)
--- NOTE | 2024-05-30 14:03 | ED_ITS ---
Discharge Plan Disposition Patient Disposition: Admitted Chief Complaint: Shortness of Breath/Dyspnea Prescriptions Prescriptions: No Action fluticasone propionate 50 mcg/actuation spray,suspension 1 spr intranasal HS PRN (Reason: Congestion) 60 Days Qty: 16 Patient Comments: one spray each side carvedilol 25 mg tablet 25 mg PO DAILY diclofenac sodium [Voltaren Arthritis Pain] 1 % gel 2 g topical QID Qty: 2 4RF Rx Instructions: apply to single elbow, wrist or hand; for hand includes palm/fingers/back of hand levothyroxine 75 mcg tablet 75 mcg PO DAILY Patient Comments: TAKE 1 TABLET BY MOUTH ONCE DAILY cholecalciferol (vitamin D3) 1,250 mcg (50,000 unit) capsule 1,250 mcg PO Patient Comments: TAKE 1 CAPSULE BY MOUTH TWICE A WEEK Steglatro 15 mg tablet PO Patient Comments: TAKE 1 TABLET BY MOUTH ONCE DAILY IN THE MORNING tamsulosin 0.4 MG capsule 0.8 mg PO HS peg 3350-electrolytes 4,000 ML recon soln 240 ml PO Q10M Rx Instructions: until fecal effluent is clear levofloxacin 750 mg tablet 750 mg PO DAILY 7 Days Qty: 7 0RF levofloxacin 750 mg tablet 750 mg PO DAILY 7 Days Qty: 7 0RF Referrals Follow up/Referrals: Gasper Montana MD [Primary Care Provider] - See instructions Clinical Impressions Clinical Impression: CHF (congestive heart failure), Acute hypoxic respiratory failure, Non-ST elevation [place] (NSTEMI) Print Language Print Language: Samoan Discharge ED Provider: Henrik Young General Chief Complaint: Shortness of Breath/Dyspnea Stated Complaint: SOB Time Seen by Provider: 05/30/24 13:47 Mode of Arrival: EMS Source of Information: Patient and EMS Limitations: Physical Limitations Description of Symptoms (Recalled from ER Triage Doc. by RN): shortness of breath,cough History of Present Illness HPI narrative: Patient is 78-year-old male with past medical history of peripheral arterial disease, morbid obesity, hypertension, chronic lymphedema, CKD, ieb-gnqqppy-shlcmpywa diabetes who presents to the emergency department for evaluation of shortness of breath. History is obtained by patient at bedside. Patient has been unable to lie down for some time due to it being worse shortness of breath. Through the weekend he began having productive cough, he is not a smoker, and due to it worsening he presents here for continued evaluation. No chest pain. Fingerstick 153 prior to arrival prior to arrival patient received DuoNeb. Related Data Home Medications ?Medication ?Instructions ?Recorded ?Confirmed fluticasone propionate 50 1 spr intranasal HS PRN Congestion 01/17/18 02/17/24 mcg/actuation nasal 60 days ##16 spray,suspension tamsulosin 0.4 mg capsule 0.8 mg PO HS PROSTATE 04/04/18 02/17/24 carvedilol 25 mg tablet 25 mg PO DAILY blood pressure 07/15/21 02/17/24 peg 3350-electrolytes 236 240 ml PO Q10M bowel prep 04/07/22 02/17/24 gram-22.74 gram-6.74 gram-5.86 gram solution cholecalciferol (vitamin D3) 1,250 1,250 mcg PO 07/01/22 02/17/24 mcg (50,000 unit) capsule levothyroxine 75 mcg tablet 75 mcg PO DAILY 07/01/22 02/17/24 ertugliflozin 15 mg tablet mg PO 12/02/23 02/17/24 (Steglatro) Previous Rx's ?Medication ?Instructions ?Recorded levofloxacin 750 mg tablet 750 mg PO DAILY 7 days #7 tabs 11/10/23 levofloxacin 750 mg tablet 750 mg PO DAILY 7 days #7 tabs 01/04/24 diclofenac sodium 1 % topical gel 2 g topical QID #2 grams 02/17/24 (Voltaren Arthritis Pain) Allergies Allergy/AdvReac Type Severity Reaction Status Date / Time Antihistamines - Alkylamine Allergy Mild MADE SKIN Verified 02/17/24 14:17 [ANTIHISTAMINES - ALKYLAMINE] FEEL LIKE ON FIRE NSAIDS (Non-Steroidal AdvReac Severe kidney Verified 02/17/24 14:17 Anti-Inflamma failure [facility]SMID [facility] Disclaimer: The information contained in this section may have been updated after the patient was seen, as this information can be updated by other users. Medical History Arthritis PAD (peripheral artery disease) HTN (hypertension), benign Heart murmur T2DM (type 2 diabetes mellitus) BPH (benign prostatic hyperplasia) Peripheral vascular disease Surgical History Hx of colonoscopy History of total left hip replacement Family History Other Cancer Heart attack Social History Smoking Status: Never smoker alcohol intake: never substance use type: denies use current occupational status: retired Travel in the last 8 weeks: None household members: none housing: house current occupation: [employer] current occupational exposures/hazards: No caffeine: Yes Other Medical History Have you received the Flu Vaccine for this season: Yes Have you received the Pneumonia Vaccine: No ROS Obtained: Yes Systems reviewed as appropriate & no additional complaints except as documented Physical Exam General General appearance: alert and in no apparent distress Head Head exam: atraumatic and normocephalic Eye Eye exam: Present PERRL ENT ENT exam: Present mucous membranes moist Neck Neck exam: Present normal inspection Chest Chest inspection: Present normal inspection and symmetric chest wall rise Respiratory Respiratory exam: Present other (Scant crackles at the bases, tachypnea); Absent normal lung sounds bilaterally or respiratory distress Cardiovascular Cardiovascular exam: Present normal rhythm and tachycardia Abdominal Exam Abdominal exam: Present soft; Absent tenderness Extremities Exam Extremities exam: Present other (Norton edema bilateral lower extremities) Neurological Exam Neurological exam: Present alert Psychiatric Psychiatric exam: Present normal affect Skin Skin exam: Present warm and dry HEART Score HEART Score HEART Score assessment performed?: Yes History (anamnesis): Slightly suspicious ECG: Non-specific disturbance Age: >65 years Risk factors: 1-2 risk factors Troponin: > 3x normal limit HEART Score: 6 Critical Care Critical Care Time Critical Care Time: No Medical Decision Making Real Inquiry Pt receiving controlled substance: No Vital Signs Vital Signs: 05/30/24 13:43 Temperature 100 F H Temperature Source Oral Pulse Rate [Right] 123 H Respiratory Rate 24 Blood Pressure [Right Arm] 130/65 Blood Pressure Mean [Right Arm] 86 02 Sat by Pulse Oximetry 92 L Oxygen Delivery Method Nasal Cannula Oxygen Flow Rate (LPM) 2 Lab Data Labs: Lab Results 05/30/24 13:50: WBC 17.4 H, RBC 3.74 L, Hgb 11.2 L, Hct 35.4 L, MCV 94.8 H, MCH 30.1, MCHC 31.7 L, RDW 15.0, Plt Count 395, MPV 8.9, Neut % (Auto) 90.4 H, Lymph % (Auto) 3.5 L, [place] % (Auto) 3.9, Eos % (Auto) 1.9, Baso % (Auto) 0.4, Neut # (Auto) 15.7 H, Lymph # (Auto) 0.6 L, [place] # (Auto) 0.7, Eos # (Auto) 0.3, Baso # (Auto) 0.1, Total Counted 100, Neutrophils % (Manual) 93 H, Lymphocytes % (Manual) 6 L, Monocytes % (Manual) 1 L, Platelet Estimate Normal, RBC Morphology Normal, Sodium 137, Potassium 5.2 H, Chloride 107, Carbon Dioxide 18 L, Anion Gap 17.2 H, BUN 20, Creatinine 1.30 H, Estimated Creat Clear 46, Estimated GFR 54 L, Est GFR ( Amer) 65, Glucose 129 H, Calcium 8.4, Total Bilirubin 1.0, AST 45, ALT 21, Alkaline Phosphatase 74, Troponin I 0.30 H, NT-Pro-B Natriuret Pep 3170 H, Total Protein 7.9, Albumin 4.0, Globulin 3.9 H, A lbumin/Globulin Ratio 1.0 L 05/30/24 13:55: Chlamy pneumoniae PCR Not detected, Adenovirus (PCR) Not detected, B. pertussis DNA (PCR) Not detected, Coronavirus OC43 (PCR) Not detected, Coronavirus HKU1 (PCR) Not detected, Coronavirus 229E (PCR) Not detected, SARS-CoV-2 (PCR) Not detected, Coronavirus NL63 (PCR) Not detected, Human Metapneumovir PCR Not detected, Influenza A (H1) PCR Not detected, Influ A (H1N1/09) PCR Not detected, Influenza A (H3) PCR Not detected, Influenza Type A (PCR) Not detected, Influenza Type B (PCR) Not detected, M. pneumoniae (PCR) Not detected, Parainfluenza 1 (PCR) Not detected, Parainfluenza 2 (PCR) Not detected, Parainfluenza 3 (PCR) Not detected, Parainfluenza 4 (PCR) Not detected, RSV (PCR) Not detected, Entero/Rhino (PCR) Not detected 05/30/24 14:01: VBG pH 7.33, VBG pCO2 32.2 L, VBG pO2 138.9 H, VBG HCO3 16.5 L, VBG Total CO2 17.5 L, VBG O2 Saturation 98.8 H, VBG Base Excess -9.4 L, VBG Lactic Acid 2.8 H 05/30/24 13:50 05/30/24 13:50 Response Orders (Tests/Meds): ED MEDICATIONS Discontinued Medications Generic Name Dose Route Start Last Admin Trade Name Freq PRN Reason Stop Dose Admin Furosemide 40 mg 05/30/24 15:45 05/30/24 15:51 Furosemide 40mg/4ml Vial IV 05/30/24 15:46 40 mg ONCE ONE Administration Iopamidol 75 ml 05/30/24 14:45 05/30/24 14:46 Iopamidol-370 (76%);100ml Bottle IV 05/30/24 14:46 75 ml ONCE ONE Administration Perflutren Lipid Microsphere 2 mg 05/30/24 15:33 05/30/24 15:37 Definity Us Echo Contrast 2ml Inj IV 05/30/24 15:34 2 mg ONCE ONE Administration Sodium Chloride 50 ml 05/30/24 14:45 05/30/24 14:46 0.9 % Sodium Chloride 50 Ml Vial IV 05/30/24 14:46 50 ml ONCE ONE Administration Sodium Chloride 10 ml 05/30/24 14:45 05/30/24 14:46 Sodium Chloride 0.9% 10ml Syr (Rad Only) IV 05/30/24 14:46 10 ml ONCE ONE Administration ORDERS Category Date Time Status CT angio chest PE protocol Stat Cat Scan 05/30/24 14:01 Taken CA echo limited Stat Exams 05/30/24 14:17 Completed CXR --portable [XR chest portable] Stat Exams 05/30/24 13:49 Taken BNP [NT Pro Brain Natriuretic Pep.] Stat Lab 05/30/24 13:50 Completed CBC w/Auto Diff [Complete Blood Count Auto Diff] Stat Lab 05/30/24 13:50 Completed CMP [Comprehensive Metabolic Panel] Stat Lab 05/30/24 13:50 Completed Full Resp Panel w/COVID ([facility]) Routine Lab 05/30/24 13:55 Completed HIV (1&2) Antibody Rapid Stat Lab 05/30/24 13:55 Ordered Hep C Ab with Reflex to RNA Stat Lab 05/30/24 13:55 Ordered Trop I [Troponin I] Stat Lab 05/30/24 13:50 Completed Troponin I Q3H Lab 05/30/24 17:00 Ordered Troponin I Q3H Lab 05/30/24 20:00 Ordered Blood Culture Stat Micro 05/30/24 13:55 Received VBG [Venous Blood Gas] Stat RT 05/30/24 14:01 Completed ECG Data Tracing #1: ECG Narrative: Independently interpreted by me rate is 122, rhythm is regular, left bundle branch block Sgarbossa criteria negative, sinus tachycardia, QTc 379. MDM Narrative Medical Decision Narrative: In summary patient is a 78-year-old male past medical history described above who presents emergency department for evaluation of shortness of breath and cough. Patient is hemodynamically stable, tachycardic heart rate in the 120s upon arrival, EMS stated heart rate was in the 120s and 130s prior to albuterol so this is true tachycardia, requiring 2 L nasal cannula to maintain oxygen saturations greater than 90%. Limited [id number] ultrasound was done at bedside (images were not saved to apartment archive therefore no note is warranted) which was technically difficult however it appears there is a dilated left ventricle with poor contraction, there is B-lines in bilateral lung del toro anteriorly. Differential includes viral respiratory faction, pneumonia, undiagnosed heart failure with acute exacerbation, euglycemic DKA, among others. 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 Given this volume resuscitation was considered but will be deferred. Patient will undergo CT imaging and broad hematologic labs will be obtained. EKG and serial troponins will be obtained. Ceftriaxone and azithromycin will be initiated after blood cultures. Initial workup reviewed by me, significant leukocytosis 17.4, compensated acid-base status, no FRANCESCA or critical electrolyte abnormality, CKD that is better than baseline, initial troponin 0.3, BNP 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 40 mg of IV Lasix will be administered. Case was discussed with cardiology who agrees that this is likely type II NSTEMI with new onset worsening heart failure with acute hypoxic respiratory failure. The case was discussed with hospital medicine regarding management patient be admitted to their service for continued evaluation at this time formal CT read conducted and read pending at time of admission.
[2024-05-30 14:09] LABS: Adenovirus,PCR Not Detected (NotDetected); Bordetella Pertussis Not Detected (NotDetected); Chlamydophila Pneumoniae, PCR Not Detected (NotDetected); Coronavirus 19, PCR Not Detected (NotDetected); Coronavirus 229E Not Detected (NotDetected); Coronavirus NL63 Not Detected (NotDetected); Coronavirus OC43 Not Detected (NotDetected); Coronovirus HKU1,PCR Not Detected (NotDetected); Human Metapneumovirus Not Detected (NotDetected); Influenza A, PCR Not Detected (NotDetected); Influenza AH1, 2009 Not Detected (NotDetected); Influenza AH1, PCR Not Detected (NotDetected); Influenza AH3,PCR Not Detected (NotDetected); Influenza B, PCR Not Detected (NotDetected); Mycoplasma Pneumoniae, PCR Not Detected (NotDetected); Parainfluenza 1, PCR Not Detected (NotDetected); Parainfluenza 2, PCR Not Detected (NotDetected); Parainfluenza 3, PCR Not Detected (NotDetected); Parainfluenza 4, PCR Not Detected (NotDetected); Respiratory Syncytial Virus Not Detected (NotDetected); Rhinovirus/Enterovirus Not Detected (NotDetected)
[2024-05-30 14:10] LABS: VBG Base Excess -9.4 mmol/L (-2.4-2.3); VBG HCO3 16.5 mmol/L (23-30); VBG Oxygen Saturation 98.8 % (50-70); VBG PCO2 32.2 mmol/L (35-51); VBG PH 7.33 mmol/L (7.31-7.41); VBG PO2 138.9 mmol/L (28-40); VBG Total CO2 17.5 mmol/L (23-27)
[2024-05-30 14:11] LABS: Chloride 107 mmol/L (98-107); Potassium 5.2 mmoL/L (3.5-5.1); Sodium 137 mmol/L (136-145)
[2024-05-30 14:12] LABS: Lactate Venous 2.8 mmol/L (0.4-2.0)
[2024-05-30 14:14] LABS: Alanine Aminotransferase 21 U/L (12-78); Alkaline Phosphatase 74 U/L (38-126); Aspartate Amino Transferase 45 U/L (17-59); Blood Urea Nitrogen 20 mg/dl (9-20); Carbon Dioxide 18 mmol/L (22.0-30.0); Creatinine Clearance Estimated 46 mL/min (50-200); Estimated Glomerular Filt Rate 54 ml/min (>60); GFR (African American) 65 ML/MIN (>60); Total Protein,Serum 7.9 g/dl (6.3-8.2)
[2024-05-30 14:15] LABS: Anion Gap 17.2 mEq/L (5-15); Calcium 8.4 mg/dl (8.4-10.2); Glucose 129 mg/dl (74-100)
--- NOTE | 2024-05-30 14:17 | CA_ITS ---
APPROVED REPORT EXAM: Limited 2D Echocardiogram with contrast Grain Wafer Machine Operator: Roshni Bernard CRT Ht: 5 ft 8 in Wt: 294lbs BSA: 2.41 BP: 130/65 mmHg Indications: EF check, limited echo ordered. limited images Echo Enhancing Agent Indication: Endocardial border delineation Agent(s) / Amount(s) Used: Definity 2 cc Comments: Definity given M-Mode Dimensions RVDd 3.68 cm (0.9-2.6) LVDd 5.44 cm (3.5-5.7) LVDs 4.17 cm (3.5-5.7) IVSd 1.37 cm (0.6-1.1) PWd 1.28 cm (0.6-1.1) EF (Teich) 46.20% FS 23.30% EDV (Teich) 143.70 mL ESV (Teich) 77.30 mL Other Information Study Quality: Technically Difficult Conclusion This is a limited TTE to evaluate for LV systolic function. Limited windows were obtained. Technically difficult study. Ultrasound enhancing agent was administered. The left ventricle is normal in size. There is increased LV wall thickness. There is moderate to severe global hypokinesis. The distal and apical LV charlton are akinetic. LVEF is 30%. No evidence of apical LV thrombus. In the setting of reduced LV systolic function and wall motion abnormalities, further evaluation for ischemia is recommended. Findings may also be suggestive of stress cardiomyopathy (i.e. a diagnosis of exclusion if ischemia is ruled out). Electronically signed by : Florence Miller MD 05/31/2024 10:34:14
[2024-05-30 14:26] LABS: Lymphocytes % 6 % (10-50); Monocytes % 1 % (2-9); Neutrophils % 93 % (42-76); Platelet Estimate Normal; RBC Morphology Normal; Total Cells Counted 100
[2024-05-30 14:45] LABS: NT Pro Brain Natriuretic Pep. 3170 pg/mL (0-450)
[2024-05-30] MEDS: 0.9 % SODIUM CHLORIDE 50 ML VIAL IV (14:46)
[2024-05-30] MEDS: SODIUM CHLORIDE 0.9% 10ML SYR (RAD ONLY) 10 ML IV (14:46)
[2024-05-30] MEDS: IOPAMIDOL-370 (76%);100ML BOTTLE 75 ML IV (14:46)
[2024-05-30 14:47] LABS: Globulin 3.9 g/dL (1.3-3.2)
[2024-05-30] MEDS: DEFINITY US ECHO CONTRAST 2ML INJ 2 MG IV (15:37)
[2024-05-30] MEDS: FUROSEMIDE 40MG/4ML VIAL 40 MG IV (15:51)
--- NOTE | 2024-05-30 16:20 | PC.NURSE ---
Clinical Lab Technologist notified of admission.
--- NOTE | 2024-05-30 16:34 | PC.NURSE ---
report called to Karl
[2024-05-30 16:35] VITALS: BP 149/91; PULSE 118; RESP 24; TEMP 37.6; O2SAT 92
[2024-05-30 16:47] VITALS: BP 149/91; PULSE 106; RESP 18; TEMP 36.6; O2SAT 96; BMI 41.5
[2024-05-30 18:13] LABS: Reflex Lactic Add Lactic Reflex
[2024-05-30 18:21] LABS: Troponin I 2.57 ng/ml (0.00-0.034)
--- NOTE | 2024-05-30 18:21 | P.HP_ITS ---
History of Present Illness *Admission Date: 05/30/24 *Reason for visit:: SOB *History of present illness: Riki Mckeon is a 78 year old male with a medical history significant for hypothyroidism and BPH presents with worsening shortness of breath of the past few days. He states hes been cough more but not productive. Denies chest pain, fevers. Workup in the ED significant for WBC 17.4, potassium 5.2, troponin 0.30- >2.57, BNP 3170. VBG unremarkable. CTA chest shows bilateral ground glass opacities. Requiring 2L, baseline none. Case discussed with ED and decision was made to admit paient for acute hypoxic respiratory failure from heart failure exacerbation and elevated troponins. [facility] Disclaimer: The information contained in this section may have been updated after the harleen reyes was seen, as this information can be updated by other users. Medical History Arthritis PAD (peripheral artery disease) HTN (hypertension), benign Heart murmur T2DM (type 2 diabetes mellitus) BPH (benign prostatic hyperplasia) Peripheral vascular disease Surgical History Hx of colonoscopy History of total left hip replacement Family History Other Cancer Heart attack Social History Smoking Status: Never smoker alcohol intake: never substance use type: denies use current occupational status: retired Travel in the last 8 weeks: None household members: none housing: house current occupation: [employer] current occupational exposures/hazards: No caffeine: Yes Other Medical History Have you received the Flu Vaccine for this season: No Have you received the Pneumonia Vaccine: Yes Meds Home Medications and Allergies Home Medications ?Medication ?Instructions ?Recorded ?Confirmed ?Type tamsulosin 0.4 mg capsule 0.8 mg PO HS PROSTATE 04/04/18 05/30/24 History levothyroxine 100 mcg tablet 100 mcg PO AM 05/30/24 05/30/24 History New Prescriptions to Start Prescriptions: Allergies Allergy/AdvReac Type Severity Reaction Status Date / Time Antihistamines - Alkylamine Allergy Mild MADE SKIN Verified 02/17/24 14:17 [ANTIHISTAMINES - ALKYLAMINE] FEEL LIKE ON FIRE NSAIDS (Non-Steroidal AdvReac Severe kidney Verified 02/17/24 14:17 Anti-Inflamma failure Exam Data for Last 24 hours Vital signs and Labs for Last 24 Hours: Temp Pulse Resp BP Pulse Ox O2 Del Method O2 Flow Rate 98 F 106 H 18 149/91 H 96 Nasal Cannula 2 05/30/24 16:47 05/30/24 16:47 05/30/24 16:47 05/30/24 16:47 05/30/24 16:47 05/30/24 16:47 05/30/24 13:43 Laboratory Results - last 24 hr 05/30/24 13:50: WBC 17.4 H, RBC 3.74 L, Hgb 11.2 L, Hct 35.4 L, MCV 94.8 H, MCH 30.1, MCHC 31.7 L, RDW 15.0, Plt Count 395, MPV 8.9, Neut % (Auto) 90.4 H, Lymph % (Auto) 3.5 L, [place] % (Auto) 3.9, Eos % (Auto) 1.9, Baso % (Auto) 0.4, Neut # (Auto) 15.7 H, Lymph # (Auto) 0.6 L, [place] # (Auto) 0.7, Eos # (Auto) 0.3, Baso # (Auto) 0.1, Total Counted 100, Neutrophils % (Manual) 93 H, Lymphocytes % (Manual) 6 L, Monocytes % (Manual) 1 L, Platelet Estimate Normal, RBC Morphology Normal, Sodium 137, Potassium 5.2 H, Chloride 107, Carbon Dioxide 18 L, Anion Gap 17.2 H, BUN 20, Creatinine 1.30 H, Estimated Creat Clear 46, Estimated GFR 54 L, Est GFR ( Amer) 65, Glucose 129 H, Calcium 8.4, Total Bilirubin 1.0, AST 45, ALT 21, Alkaline Phosphatase 74, Troponin I 0.30 H, NT-Pro-B Natriuret Pep 3170 H, Total Protein 7.9, Albumin 4.0, Globulin 3.9 H, Albumin/Globulin Ratio 1.0 L 05/30/24 13:55: Chlamy pneumoniae PCR Not detected, Adenovirus (PCR) Not detected, B. pertussis DNA (PCR) Not detected, Coronavirus OC43 (PCR) Not detected, Coronavirus HKU1 (PCR) Not detected, Coronavirus 229E (PCR) Not detected, SARS-CoV-2 (PCR) Not detected, Coronavirus NL63 (PCR) Not detected, Human Metapneumovir PCR Not detected, Influenza A (H1) PCR Not detected, Influ A (H1N1/09) PCR Not detected, Influenza A (H3) PCR Not detected, Influenza Type A (PCR) Not detected, Influenza Type B (PCR) Not detected, M. pneumoniae (PCR) Not detected, Parainfluenza 1 (PCR) Not detected, Parainfluenza 2 (PCR) Not detected, Parainfluenza 3 (PCR) Not detected, Parainfluenza 4 (PCR) Not detected, RSV (PCR) Not detected, Entero/Rhino (PCR) Not detected 05/30/24 14:01: VBG pH 7.33, VBG pCO2 32.2 L, VBG pO2 138.9 H, VBG HCO3 16.5 L, VBG Total CO2 17.5 L, VBG O2 Saturation 98.8 H, VBG Base Excess -9.4 L, VBG Lactic Acid 2.8 H I & O for Last 24 hours: Intake & Output 05/27/24 05/28/24 05/29/24 05/30/24 23:59 23:59 23:59 23:59 Output Total 150 / 150 Balance -150 / -150 Weight 124.42 kg Constitutional Constitutional: no acute distress *Routine HEENT Exam Head: Present normocephalic Eye: Present EOMI and PERRL ENT: Present mucous membranes moist *Routine Neck Exam Neck: Present supple; Absent lymphadenopathy *Routine Respiratory Exam Respiratory: Present CTA bilaterally *Routine Cardiovascular Exam Cardiovascular: Present RRR *Routine Abdominal Exam Abdominal: Present soft and normoactive bowel sounds; Absent tenderness *Routine Rectal Exam Rectal:: deferred *Routine Genitalia Exam Genitalia:: deferred *Routine Extremities Exam Extremities: Present edema; Absent cyanosis or clubbing Comments: 1+ bilateral lower extremity pitting edema. Chronic venous stasis skin changes. *Routine Skin Exam Skin: Present warm; Absent rash *Routine Neurological Exam Neurological: Present alert and oriented X3 Assessment and Plan *Assessment and plan (1) Non-ST elevation RI (NSTEMI): Status: Acute Category: Medical Code(s): I21.4 - Non-ST elevation (NSTEMI) myocardial infarction (2) CHF (congestive heart failure): Status: Acute Category: Medical Code(s): I50.9 - Heart failure, unspecified Plan Riki Mckeon is a 78 year old male with a medical history significant for hypothyroidism and BPH presents with worsening shortness of breath of the past few days. He states hes been cough more but not productive. Denies chest pain, fevers. Workup in the ED significant for WBC 17.4, potassium 5.2, troponin 0.30- >2.57, BNP 3170. VBG unremarkable. CTA chest shows bilateral ground glass opacities. Requiring 2L, baseline none. Case discussed with ED and decision was made to admit paient for acute hypoxic respiratory failure from heart failure exacerbation and elevated troponins #Acute hypoxic respiratory failure #Heart failure exacerbation, unknown type - Endorses several month onset of SOB, worse over the last few days. - Has pulmonary and LE edema. - IV Lasix 40mg BID. Follow renal function, electrolytes. - Follow-up ECHO, A1c, TSH, lipid panel. - Cardiology consulted, pending recommendations. - Wean O2 as tolerated, currently 2L. #Elevated troponins - Trop 0.30->2.57. No chest pain. EKG does not show acute ischemic findings. - Potentially from demand ischemia from heart failure. - Cardiology with [facility] tomorrow. - Therapeutic Lovenox. - Aspirin, statin. #Hypothyroidism #BPH - Resume home meds once reconciled. FULL CODE Lovenox
[2024-05-30 19:14] LABS: Lactic Acid Follow Up (RFLX 1) 1.7 mmol/L (0.7-2.1)
[2024-05-30 20:00] VITALS: BP 125/72; PULSE 100; PULSE 103; RESP 18; TEMP 36.9; O2SAT 100
[2024-05-30] MEDS: ENOXAPARIN 100MG/ML SYRINGE 125 MG SQ (20:05)
[2024-05-30 20:06] VITALS: RESP 20; O2SAT 96
[2024-05-30] MEDS: ATORVASTATIN 40MG TABLET 40 MG PO (20:06)
[2024-05-30] MEDS: CLOPIDOGREL 75MG TAB 75 MG PO (20:06)
[2024-05-30 20:07] LABS: HIV (1&2) Antibody Rapid NONREACTIVE (NONREACTIVE)
[2024-05-30] MEDS: ASPIRIN EC 81MG TABLET 81 MG PO (20:08)
[2024-05-30 20:18] LABS: POC Glucose,Bedside 136 (70-110)
--- NOTE | 2024-05-30 21:06 | PC.NURSE ---
Received critical troponin of 7.88 from Shilpa in lab
[2024-05-30 21:07] LABS: Troponin I 7.88 ng/ml (0.00-0.034)
--- NOTE | 2024-05-30 21:29 | ECG_ITS ---
APPROVED REPORT Exam: Resting ECG HR:96 bpm ECG Measurements Heart Rate 96 AXES PA 238 P 54 QRSd 107 QRS -16 QT 361 T 64 QTc 415 Conclusion SINUS RHYTHM WITH FIRST DEGREE AV BLOCK WITH OCCASIONAL SUPRAVENTRICULAR PREMATURE COMPLEXES ANTEROSEPTAL MYOCARDIAL INFARCTION , OF INDETERMINATE AGE [40+ ms Q WAVE IN V1-V4] ABNORMAL ECG UNCONFIRMED REPORT Electronically signed by : Gasper Montana MD 06/02/2024 15:27:44
[2024-05-30] MEDS: FUROSEMIDE 100MG/10ML VIAL 80 MG IV (22:15)
--- NOTE | 2024-05-30 22:15 | PC.NURSE ---
2106 - Called Dr Chaves to report critical troponin. At this current time patient was asymptomatic and vital signs were 125/72 with HR of 103. No new orders received. 2119 - Patient stated he had just started having chest pain but it comes and goes intermittently. 2128 - EKG obtained. See scanned report. 2130 - Paged Dr Conway since Cardiology consult was entered 2132 - Spoke with Dr Conway. Received new orders for 80mg Lasix IV now, Nitro drip at 10mcg/min and titrate up per protocol until SBP in 110s or patient is pain free. 2139 - Made Dr Chaves aware of situation 2154 - Report given to Cherelle to take over patient care as step-down patient
[2024-05-30] MEDS: AZITHROMYCIN 500 MG in 0.9 % SODIUM CHLORIDE 250 ML 250 MG IV (22:16)
[2024-05-30] MEDS: TAMSULOSIN 0.4MG CAPSULE 0.8 MG PO (22:42)
[2024-05-31] VITALS (21 sets, daily range): BP systolic 90–146; BP diastolic 51–87; PULSE 56–90; RESP 16–22; TEMP 36.4–36.9; O2SAT 90–100; BMI 41.5
--- NOTE | 2024-05-31 00:09 | PC.NURSE ---
patient was hypotensive and denying chest pain per my nursing judgment, I held the nitro gtt - patient was educated to ring out if chest pain returned. Around 2244, patient rang out stating he was beginning to have chest pain again, BP was 95/62. This RN was unable to start the nitro gtt r/t BP. This RN contacted Zoraida with no new ordered received at this time. 2338 Zoraida called back and was informed that the patient was stable and resting without chest pain at this time.
[2024-05-31] MEDS: CEFTRIAXONE 1 GM 1 GM in 0.9 % SODIUM CHLORIDE 50 ML IV ×2 (00:37→17:25)
[2024-05-31 07:03] LABS: Chol/HDL Ratio 2.9 (1-3.5); Cholesterol 102 mg/dl (140-200); HDL Cholesterol 35 mg/dl (40-60); Triglycerides 98 mg/dl (30-150); VLDL Cholesterol 20 mg/dL (0-40)
[2024-05-31 07:14] LABS: Direct LDL Cholesterol 35.43 mg/dL (100-129)
[2024-05-31 07:34] LABS: Thyroid Stimulating Hormone 8.64 uIU/mL (0.465-4.68)
--- NOTE | 2024-05-31 08:39 | HMH.PHAINT1 ---
Pharmacy Intervention Comments: Patients home medications verified using list from pharmacy and patient interview.
[2024-05-31] MEDS: LEVOTHYROXINE 100MCG (0.1MG) TAB 100 MCG PO (09:34)
[2024-05-31] MEDS: ASPIRIN EC 81MG TABLET 81 MG PO (09:34)
[2024-05-31] MEDS: CLOPIDOGREL 75MG TAB 75 MG PO (09:34)
[2024-05-31] MEDS: FUROSEMIDE 40MG/4ML VIAL 40 MG IV ×2 (09:34→17:25)
[2024-05-31] MEDS: METOPROLOL SUCCINATE XL 25MG TABLET 25 MG PO (09:38)
[2024-05-31] MEDS: EMPAGLIFLOZIN 10MG TABLET 10 MG PO (09:38)
[2024-05-31] MEDS: HEPARIN DRIP CONSULT 1 EACH NOTAPPLIC (09:39)
[2024-05-31] MEDS: HEPARIN SODIUM 5,000 UNIT/ML VIAL 4000 UNIT IV (09:43)
[2024-05-31] MEDS: HEPARIN SODIUM,PORCINE/D5W 500 ML 20 UNIT IV (09:47)
[2024-05-31 10:52] LABS: PTT Heparin (inpatient only) 29.2 Seconds (50-75)
--- NOTE | 2024-05-31 11:04 | IR_ITS ---
APPROVED REPORT Patient Location: Inpatient Ambulatory Service Representative: CARY Echeverria RT (R) PROCEDURES Left heart catheterization Left ventriculogram Selective coronary angiogram Drug-eluting stent deployment to the ostial proximal and mid dominant right coronary Drug-eluting stent deployment to the circumflex artery Drug-eluting stent deployment to the first obtuse marginal artery Drug-eluting stent deployment to the LAD Drug-eluting stent deployment to the first diagonal artery Drug-eluting stent deployment to the left main artery INDICATION Acute non-ST elevation myocardial infarction, Coronary artery disease, Cardiogenic shock, Peripheral artery disease with open wounds and ulcers/active infection, Patient deemed a nonsurgical bypass patient Informed consent was obtained prior to the procedure. COMPLICATIONS None Estimated Blood Loss: Less than 10 mls TECHNIQUE One percent lidocaine used to anesthetize the right anterior aspect of the wrist. The right radial artery was accessed via the Seldinger technique. A 6 [place] sheath was placed in the right radial artery. 2.5 mg of Verapamil, 800 mcg of nitroglycerin, 1mg Lidocaine and 5000 U Heparin were given through the arterial sheath. The papa catheter was also used to perform left heart catheterization, left ventriculogram and selective coronary angiogram. At the end of the diagnostic angiogram I broke scrub and discussed with the patient's family the critical nature of the multivessel coronary artery disease. It was confirmed the patient was not a surgical bypass candidate due to open wounds on his lower extremities being diabetic obese elderly and deconditioned. Collectively we decided to proceed with multivessel high risk stenting for revascularization. I then rescrubbed and the [employer] guide catheter was placed in the right coronary artery followed by Choice PT extra-support wire placed distally. A 3 mm x 38 mm [place]axton frontier stent was deployed in the ostial proximal segment 24 cristopher reducing the severe stenosis to 0%. An additional 3 mm x 22 mm Thaxton frontier stent was then placed distal to this for stent yet still overlapping and deployed at 20 cristopher. The balloon was brought back and deployed at 24 cristopher in the proximal and ostial segment. NEAL III flow was present before and after the procedure. Following stenting of the right coronary artery collaterals were then identified through the distal and mid LAD. The guide catheter was then placed in the left main artery and a Choice PT active support wire was placed into the circumflex artery. Primary stenting could not be performed even with the use of guide catheter therefore predilatation was made with the balloon. Following this a 3.5 x 26 mm Eugene frontier stent was placed in the mid left main artery extending into the proximal circumflex artery and deployed at 20 cristopher. An additional 3.75 x 12 mm balloon was used to post dilate the proximal portion. An additional 2.75 x 30 mm Thaxton frontier stent was then deployed in the first obtuse marginal artery and deployed at 18 cristopher. There was haziness and a significant down steps distally therefore an additional 2.75 x 12 mm Eugene frontier stent was placed distal to the first obtuse marginal artery stent is still overlapping and deployed at 14 cristopher. The balloon was brought back and deployed at 20 cristopher as well as 24 cristopher in the proximal segment of the first obtuse marginal artery to further post dilate. A wire was then placed into the LAD and first diagonal artery. A 2.5 mm balloon was used to open the struts and proximal portion of the LAD. The wire would not pass through the chronically occluded calcified mid LAD. With the wire in the diagonal artery a a 2.75 x 26 mm Eugene frontier stent was placed in the ostial LAD extending to the first diagonal artery. An additional 3 mm x 15 mm noncompliant balloon was deployed in the ostial proximal portion of the LAD at 24 cristopher to further post dilate. An additional 4 mm x 8 mm Eugene frontier stent was then placed into the left main artery after the wires were removed from the LAD. This balloon was advanced into the ostial circumflex artery and deployed at 24 cristopher to further post dilate. NEAL-3 flow was present down the left main artery the circumflex artery and the first obtuse marginal artery before and after the procedure. NEAL-3 flow was present in the proximal LAD extending into the first diagonal artery before and after the procedure. At the end of the procedure the apparatus was removed the sheath was removed and hemostasis was achieved using TR banding patient was transferred to the postop putting in stable condition 2 drug-eluting stents were placed in the ostial proximal portion of the dominant right coronary artery 2 drug-eluting stents were placed in the first obtuse marginal artery 1 drug-eluting stent was placed in the proximal circumflex artery extending back to the left main artery 1 drug-eluting stent was placed into the ostial LAD extending the first diagonal artery 1 drug-eluting stent was placed in the ostial portion of the left main artery ANGIOGRAPHIC RESULTS The left main artery Is calcified and hazy with a 40 to 50% stenosis The left anterior descending artery Has an ostial 80% calcified stenosis which extends into a medium to large first diagonal artery. It then gives rise to a septal citizen participation specialist and the LAD is then occluded. The distal segment fills via [id number] collaterals The circumflex artery Is nondominant and large and has an ostial calcified 90% concentric stenosis. A large first obtuse marginal artery has a concentric 70% stenosis The right coronary artery Is dominant and has an ostial 90% calcified stenosis followed by an additional proximal to mid vessel 70% calcified stenosis The IBANEZ ventriculogram reveals Dilated ejection fraction of 25 to 30% The left ventricular end-diastolic pressure Severely elevated at 30 mmHg IMPRESSION Critical coronary artery disease in a patient with open lower extremity ulcers multiple comorbidities and not considered a surgical bypass patient Successful reconstruction of the right coronary artery, circumflex artery, first obtuse marginal artery, left main artery, proximal LAD extending into a medium sized first diagonal artery, as described above using a total of 7 drug-eluting stents Severely reduced ejection fraction with elevated LVEDP PLAN 1. Plavix plus aspirin 2. Supportive care. Patient is diabetic over the age of 76 and received copious contrast for this complex revascularization. He is at increased risk for acute tubular necrosis. 3. Patient should be monitored over the weekend with plans to uptitrate afterload reducing medicines such as Entresto and possibly carvedilol once hemodynamically stable and tolerating 4. Gentle diuresis 5. Possible LifeVest prior to discharge home 6. Echocardiogram Wednesday prior to discharge home if he is hemodynamically and clinically stable 7. LDL less than 55 to be achieved with high intensity statin Electronically signed by : Jeffrey Conway MD 05/31/2024 15:38:40
--- NOTE | 2024-05-31 11:23 | EXP.CARD.CON ---
History of Present Illness History of Present Illness Consult date: 05/31/24 Requesting physician: Eliseo Jameson Consult reason: shortness of breath Chief complaint: Shortness of breath History of present illness: 78-year-old white male without known cardiovascular disease presented emergency room with complaints of shortness of breath. Patient states for the past 1 to 2 months he has had worsening dyspnea on exertion. Wednesday while taking a shower he developed sudden onset of worsening shortness of breath without associated chest discomfort arm pain or nausea. Symptoms persisted through Wednesday and he came to the emergency room last night. In the ER he was found to have rising serial troponins, WBC 17,000, groundglass opacities on CTA requiring 2 L/min O2. proBNP was 3000. EKG showed Q waves in leads V1 through V3. He is admitted overnight with medical management and we are consulted this morning. He is diuresing and reports breathing much better this morning. [facility] Disclaimer: The information contained in this section may have been updated after the patient was seen, as this information can be updated by other users. Medical History Arthritis PAD (peripheral artery disease) HTN (hypertension), benign Heart murmur T2DM (type 2 diabetes mellitus) BPH (benign prostatic hyperplasia) Peripheral vascular disease Surgical History Hx of colonoscopy History of total left hip replacement Family History Other Cancer Heart attack Social History Smoking Status: Never smoker alcohol intake: never substance use type: denies use current occupational status: retired Travel in the last 8 weeks: None household members: none housing: house current occupation: [employer] current occupational exposures/hazards: No caffeine: Yes Review of Systems Constitutional Constitutional: Denies fatigue and Denies weakness Eyes Eyes: Denies loss of vision ENT Ears, Nose, Mouth, and Throat: Denies hearing loss and Denies vertigo *Cardiovascular Cardiovascular: Denies chest pain, Reports dyspnea and Denies syncope *Respiratory Respiratory: Denies cough and Reports dyspnea *Gastrointestinal Gastrointestinal: Denies change in stool character, Denies nausea and Denies vomiting *Genitourinary Genitourinary: Denies difficulty urinating *Musculoskeletal Musculoskeletal: Denies muscle weakness Integumentary/Breasts Skin/Breast: Denies changing lesions *Neurologic Neurologic: Denies loss of vision, Denies syncope, Denies vertigo and Denies weakness Endocrine Endocrine: Denies fatigue Exam Data for Last 24 hours Vital signs and Labs for Last 24 Hours: Temp Pulse Resp BP Pulse Ox O2 Del Method O2 Flow Rate 97.9 F 80 18 109/59 L 97 Room Air 2 05/31/24 08:00 05/31/24 08:00 05/31/24 08:00 05/31/24 08:00 05/31/24 08:00 05/31/24 09:00 05/31/24 08:00 Laboratory Results - last 24 hr 05/30/24 13:50: WBC 17.4 H, RBC 3.74 L, Hgb 11.2 L, Hct 35.4 L, MCV 94.8 H, MCH 30.1, MCHC 31.7 L, RDW 15.0, Plt Count 395, MPV 8.9, Neut % (Auto) 90.4 H, Lymph % (Auto) 3.5 L, [place] % (Auto) 3.9, Eos % (Auto) 1.9, Baso % (Auto) 0.4, Neut # (Auto) 15.7 H, Lymph # (Auto) 0.6 L, [place] # (Auto) 0.7, Eos # (Auto) 0.3, Baso # (Auto) 0.1, Total Counted 100, Neutrophils % (Manual) 93 H, Lymphocytes % (Manual) 6 L, Monocytes % (Manual) 1 L, Platelet Estimate Normal, RBC Morphology Normal, Sodium 137, Potassium 5.2 H, Chloride 107, Carbon Dioxide 18 L, Anion Gap 17.2 H, BUN 20, Creatinine 1.30 H, Estimated Creat Clear 46, Estimated GFR 54 L, Est GFR ( Amer) 65, Glucose 129 H, Calcium 8.4, Total Bilirubin 1.0, AST 45, ALT 21, Alkaline Phosphatase 74, Troponin I 0.30 H, NT-Pro-B Natriuret Pep 3170 H, Total Protein 7.9, Albumin 4.0, Globulin 3.9 H, Albumin/Globulin Ratio 1.0 L 05/30/24 13:55: Chlamy pneumoniae PCR Not detected, Adenovirus (PCR) Not detected, B. pertussis DNA (PCR) Not detected, Coronavirus OC43 (PCR) Not detected, Coronavirus HKU1 (PCR) Not detected, Coronavirus 229E (PCR) Not detected, SARS-CoV-2 (PCR) Not detected, Coronavirus NL63 (PCR) Not detected, Human Metapneumovir PCR Not detected, Influenza A (H1) PCR Not detected, Influ A (H1N1/09) PCR Not detected, Influenza A (H3) PCR Not detected, Influenza Type A (PCR) Not detected, Influenza Type B (PCR) Not detected, M. pneumoniae (PCR) Not detected, Parainfluenza 1 (PCR) Not detected, Parainfluenza 2 (PCR) Not detected, Parainfluenza 3 (PCR) Not detected, Parainfluenza 4 (PCR) Not detected, RSV (PCR) Not detected, Entero/Rhino (PCR) Not detected 05/30/24 14:01: VBG pH 7.33, VBG pCO2 32.2 L, VBG pO2 138.9 H, VBG HCO3 16.5 L, VBG Total CO2 17.5 L, VBG O2 Saturation 98.8 H, VBG Base Excess -9.4 L, VBG Lactic Acid 2.8 H 05/30/24 17:39: Troponin I 2.57 H, HIV 1&2 Antibody Rapid Nonreactive 05/30/24 18:30: Lactate 1.7 05/30/24 20:03: POC Glucose 136 H 05/30/24 20:20: Troponin I 7.88 H 05/31/24 06:20: Hemoglobin A1c 6.0, Triglycerides 98, Cholesterol 102 L, LDL Cholesterol Direct 35.43 L, VLDL Cholesterol 20, HDL Cholesterol 35 L, Cholesterol/HDL Ratio 2.9, TSH 8.64 H 05/31/24 09:30: APTT 29.2 L I & O for Last 24 hours: Intake & Output 05/28/24 05/29/24 05/30/24 05/31/24 23:59 23:59 23:59 23:59 Intake Total 690 / 690 Output Total 750 / 1250 1000 / 1000 Balance -750 / -830 -310 / -310 Weight 274 lb 4.8 oz 273 lb 12.8 oz Microbiology Reports for the Last 24 Hours: Microbiology 05/30/24 13:55 Blood Blood Culture - Preliminary *Routine Extremities Exam Comments: Bilateral lower extremities wrapped for lymphedema, bandages need changing Meds Home Medications and Allergies Home Medications ?Medication ?Instructions ?Recorded ?Confirmed ?Type tamsulosin 0.4 mg capsule 0.8 mg PO HS PROSTATE 04/04/18 05/30/24 History levothyroxine 100 mcg tablet 50 mcg PO AM 05/30/24 05/31/24 History New Prescriptions to Start Prescriptions: Allergies Allergy/AdvReac Type Severity Reaction Status Date / Time Antihistamines - Alkylamine Allergy Mild MADE SKIN Verified 02/17/24 14:17 [ANTIHISTAMINES - ALKYLAMINE] FEEL LIKE ON FIRE NSAIDS (Non-Steroidal AdvReac Severe kidney Verified 02/17/24 14:17 Anti-Inflamma failure Assessment and Plan *Assessment and plan (1) Non-ST elevation [place] (NSTEMI): Status: Acute Category: Medical Code(s): I21.4 - Non-ST elevation (NSTEMI) myocardial infarction (2) HFrEF (heart failure with reduced ejection fraction): Status: Acute Category: Medical Code(s): I50.20 - Unspecified systolic (congestive) heart failure (3) Chronic acquired lymphedema: Status: Chronic Category: Medical Code(s): I89.0 - Lymphedema, not elsewhere classified (4) Morbid obesity with BMI of 40.0-44.9, adult: Status: Chronic Category: Medical Code(s): E66.01 - Morbid (severe) obesity due to excess calories; Z68.41 - Body mass index [BMI] 40.0-44.9, adult (5) Hypertension: Status: Chronic Category: Medical Code(s): I10 - Essential (primary) hypertension Plan NSTEMI - CCS = 4 anginal equivalent CÁRDENAS/SOA, rising serial Trop to 7, EKG with q-waves anterior leads - likely had RI on Wednesday when symptoms began - Prelim ECHO shows EF 30% with severely hypokinetic apex - Cont ASA, Plavix, Statin, Add BB, Heparin Drip - Pt agreeable to [facility] HFrEF - new dx this admission with EF 30% on ECHO, ProBNP 3k, groundglass opacities on CT and NYHA = 4 symptoms - suspect ischemic etiology - [facility] pending - Cont BB, add SGLT-2 - BP soft, add Entresto and Aldactone later - will approve LifeVest BLE Lymphedema - chronic, known dx - bandages need changing - consult wound care Obesity, BMI 41 - needs aggressive weight loss via diet and exercise - consider GLP-1 as OP for CV benefit and weight loss HLD - well controlled with LDL 35
[2024-05-31 11:53] LABS: Chloride 103 mmol/L (98-107); Potassium 3.4 mmoL/L (3.5-5.1); Sodium 135 mmol/L (136-145)
[2024-05-31 11:56] LABS: Anion Gap 11.4 mEq/L (5-15); Blood Urea Nitrogen 23 mg/dl (9-20); Carbon Dioxide 24 mmol/L (22.0-30.0); Creatinine Clearance Estimated 33 mL/min (50-200); Estimated Glomerular Filt Rate 37 ml/min (>60); GFR (African American) 44 ML/MIN (>60); Glucose 120 mg/dl (74-100)
--- NOTE | 2024-05-31 13:09 | P.CONPHA_ITS ---
[facility] Heparin Dosing Demographic Data Admission date:: 05/31/24 Date: 05/31/24 Time: 13:10 Allergies Allergy/AdvReac Type Severity Reaction Status Date / Time Antihistamines - Alkylamine Allergy Mild MADE SKIN Verified 02/17/24 14:17 [ANTIHISTAMINES - ALKYLAMINE] FEEL LIKE ON FIRE NSAIDS (Non-Steroidal AdvReac Severe kidney Verified 02/17/24 14:17 Anti-Inflamma failure Height: 1.73 m Weight: 124.2 kg Indication Medication therapy:: Heparin Current Indications:: ACS/NSTEMI Current Active Problems (Updated 05/31/24 @ 11:25 by ELEN Benavides) HFrEF (heart failure with reduced ejection fraction) (Acute) Non-ST elevation [place] (NSTEMI) (Acute) Acute hypoxic respiratory failure (Acute) CHF (congestive heart failure) (Acute) Chronic acquired lymphedema (Chronic) Morbid obesity with BMI of 40.0-44.9, adult (Chronic) Hypertension (Chronic) CVA?: No Bleeding problem?: No Kidney disease?: No [place]?: Yes Desired PTT range:: 50-75 seconds Labs Anticoagulation Lab Results:: 05/30/24 13:50 Hgb 11.2 L Hct 35.4 L Plt Count 395 Monitoring Dose Monitor 1: Date: 05/31/24 Time: 09:15 PTT Result:: 29.2 Infusion Rate:: BOLUS AT HEPARIN 4000 UNITS; THEN CONTINUE WITH HEPARIN 20 ML/HR Comment:: STOPPED IN NOVELTY TWISTER OPERATOR Core Measures Is INR > or = 2 at discharge?: No Most Recent Labs:: Laboratory Results - last 24 hr 05/30/24 13:50: WBC 17.4 H, RBC 3.74 L, Hgb 11.2 L, Hct 35.4 L, MCV 94.8 H, MCH 30.1, MCHC 31.7 L, RDW 15.0, Plt Count 395, MPV 8.9, Neut % (Auto) 90.4 H, Lymph % (Auto) 3.5 L, [place] % (Auto) 3.9, Eos % (Auto) 1.9, Baso % (Auto) 0.4, Neut # (Auto) 15.7 H, Lymph # (Auto) 0.6 L, [place] # (Auto) 0.7, Eos # (Auto) 0.3, Baso # (Auto) 0.1, Total Counted 100, Neutrophils % (Manual) 93 H, Lymphocytes % (Manual) 6 L, Monocytes % (Manual) 1 L, Platelet Estimate Normal, RBC Morphology Normal, Sodium 137, Potassium 5.2 H, Chloride 107, Carbon Dioxide 18 L, Anion Gap 17.2 H, BUN 20, Creatinine 1.30 H, Estimated Creat Clear 46, Estimated GFR 54 L, Est GFR ( Amer) 65, Glucose 129 H, Calcium 8.4, Total Bilirubin 1.0, AST 45, ALT 21, Alkaline Phosphatase 74, Troponin I 0.30 H, NT-Pro-B Natriuret Pep 3170 H, Total Protein 7.9, Albumin 4.0, Globulin 3.9 H, Albumin/Globulin Ratio 1.0 L 05/30/24 13:55: Chlamy pneumoniae PCR Not detected, Adenovirus (PCR) Not detected, B. pertussis DNA (PCR) Not detected, Coronavirus OC43 (PCR) Not detected, Coronavirus HKU1 (PCR) Not detected, Coronavirus 229E (PCR) Not detected, SARS-CoV-2 (PCR) Not detected, Coronavirus NL63 (PCR) Not detected, Human Metapneumovir PCR Not detected, Influenza A (H1) PCR Not detected, Influ A (H1N1/09) PCR Not detected, Influenza A (H3) PCR Not detected, Influenza Type A (PCR) Not detected, Influenza Type B (PCR) Not detected, M. pneumoniae (PCR) Not detected, Parainfluenza 1 (PCR) Not detected, Parainfluenza 2 (PCR) Not detected, Parainfluenza 3 (PCR) Not detected, Parainfluenza 4 (PCR) Not detected, RSV (PCR) Not detected, Entero/Rhino (PCR) Not detected 05/30/24 14:01: VBG pH 7.33, VBG pCO2 32.2 L, VBG pO2 138.9 H, VBG HCO3 16.5 L, VBG Total CO2 17.5 L, VBG O2 Saturation 98.8 H, VBG Base Excess -9.4 L, VBG Lactic Acid 2.8 H 05/30/24 17:39: Troponin I 2.57 H, HIV 1&2 Antibody Rapid Nonreactive 05/30/24 18:30: Lactate 1.7 05/30/24 20:03: POC Glucose 136 H 05/30/24 20:20: Troponin I 7.88 H 05/31/24 06:20: Hemoglobin A1c 6.0, Triglycerides 98, Cholesterol 102 L, LDL Cholesterol Direct 35.43 L, VLDL Cholesterol 20, HDL Cholesterol 35 L, Cholesterol/HDL Ratio 2.9, TSH 8.64 H 05/31/24 09:30: APTT 29.2 L, Sodium 135 L, Potassium 3.4 L D, Chloride 103, Carbon Dioxide 24, Anion Gap 11.4, BUN 23 H, Creatinine 1.80 H D, Estimated Creat Clear 33, Estimated GFR 37 L, Est GFR ( Amer) 44 L D, Glucose 120 H , Calcium 8.0 L If INR was < than 2.0 why was therapy stopped?: STOPPED IN NOVELTY TWISTER OPERATOR Were Heparin and Warfarin started on the same day?: No If not, why?: STOPPED IN NOVELTY TWISTER OPERATOR
[2024-05-31] MEDS: HEPARIN 1,000 UNITS/ML 10ML VIAL (CATH LAB) 10000 UNIT IV (13:16)
[2024-05-31] MEDS: VERAPAMIL 2.5MG/ML 2ML VIAL 2.5 MG IV (13:17)
[2024-05-31] MEDS: MIDAZOLAM HCL 1MG/1ML 5ML VIAL 1 MG IV (13:17)
[2024-05-31] MEDS: diphenhydrAMINE 50MG/ML VIAL 50 MG IV (13:17)
[2024-05-31] MEDS: LIDOCAINE 1% 10ML MDV 20 ML IJ (13:17)
[2024-05-31] MEDS: FENTANYL 100MCG/2ML VIAL 50 MCG IV (13:18)
[2024-05-31] MEDS: 0.9 % SODIUM CHLORIDE 500 ML 25 ML IV (13:18)
[2024-05-31] MEDS: HEPARIN 1,000 UNITS/500ML NS (CATH LAB) 3000 UNIT IV (13:19)
[2024-05-31] MEDS: NITROGLYCERIN 800MCG/8ML SYR (CATH LAB) 800 MCG IA (13:20)
--- NOTE | 2024-05-31 14:27 | SUR.OPER ---
Updated family on pt status
[2024-05-31] MEDS: PROPOFOL 10MG/ML 20ML VIAL 60 MG IV (15:24)
[2024-05-31] MEDS: CLOPIDOGREL 300MG TABLET 600 MG PO (15:24)
[2024-05-31] MEDS: IOPAMIDOL-370 (76%);100ML BOTTLE 250 ML IV (15:30)
[2024-05-31 15:33] LABS: CATHL Activated Clotting Time 230 SEC (74-125)
[2024-05-31 15:34] LABS: CATHL Activated Clotting Time > 400 SEC (74-125)
[2024-05-31] MEDS: BELLADONNA ALKALOIDS 60 ML ML PO (17:06)
[2024-05-31 17:10] LABS: PTT Heparin (inpatient only) 111.4 Seconds (50-75)
--- NOTE | 2024-05-31 19:01 | PC.NURSE ---
PT HAS DONE WELL THIS SHIFT. VSS. BP IS SOFT THIS EVENING AFTER HIS HEART CATH. CATH SITE LOOKS FAIR WITH A SLIGHT AMOUNT OF BRUISING BUT NO HEMATOMA OR BLEEDING. PT IS VERY DROWSY. NO C/O THIS SHIFT. NO CHEST PAIN OR SHORTNESS OF BREATH.
[2024-05-31] MEDS: ATORVASTATIN 40MG TABLET 40 MG PO (20:34)
[2024-05-31] MEDS: TAMSULOSIN 0.4MG CAPSULE 0.8 MG PO (20:34)
[2024-05-31] MEDS: AZITHROMYCIN 500 MG in 0.9 % SODIUM CHLORIDE 250 ML 250 MG IV (20:34)
--- NOTE | 2024-05-31 21:06 | P.PN_ITS ---
Subjective *Date: 06/01/24 *Time: 13:24 Interval history: Patient was lying in bed comfortably this afternoon after receiving 6 stents. Refused CABG. No chest pain, shortness of breath. Still drowsy from sedation Exam Data for Last 24 hours Vital signs and Labs for Last 24 Hours: Temp Pulse Resp BP Pulse Ox O2 Del Method O2 Flow Rate 97.5 F L 81 20 128/87 96 Nasal Cannula 2 05/31/24 20:00 05/31/24 20:00 05/31/24 20:00 05/31/24 20:00 05/31/24 20:00 05/31/24 20:00 05/31/24 20:00 Laboratory Results - last 24 hr 05/30/24 20:20: Troponin I 7.88 H 05/31/24 06:20: Hemoglobin A1c 6.0, Triglycerides 98, Cholesterol 102 L, LDL Cholesterol Direct 35.43 L, VLDL Cholesterol 20, HDL Cholesterol 35 L, Cholesterol/HDL Ratio 2.9, TSH 8.64 H 05/31/24 09:30: APTT 29.2 L, Sodium 135 L, Potassium 3.4 L D, Chloride 103, Carbon Dioxide 24, Anion Gap 11.4, BUN 23 H, Creatinine 1.80 H D, Estimated Creat Clear 33, Estimated GFR 37 L, Est GFR ( Amer) 44 L D, Glucose 120 H , Calcium 8.0 L 05/31/24 14:30: Activated Clotting Time > 400 H* 05/31/24 15:07: Activated Clotting Time 230 H* D 05/31/24 16:26: APTT 111.4 H* I & O for Last 24 hours: Intake & Output 05/28/24 05/29/24 05/30/24 05/31/24 23:59 23:59 23:59 23:59 Intake Total 960 / 960 Output Total 750 / 1250 2900 / 2900 Balance -750 / -830 -1940 / -1940 Weight 124.42 kg 124.2 kg Microbiology Reports for the Last 24 Hours: Microbiology 05/30/24 14:30 Blood Blood Culture - Preliminary NO GROWTH AFTER 24 HOURS 05/30/24 13:55 Blood Blood Culture - Preliminary Constitutional Constitutional: no acute distress *Routine HEENT Exam Head: Present normocephalic Eye: Present EOMI and PERRL ENT: Present mucous membranes moist *Routine Neck Exam Neck: Present supple; Absent lymphadenopathy *Routine Respiratory Exam Respiratory: Present CTA bilaterally *Routine Cardiovascular Exam Cardiovascular: Present RRR *Routine Abdominal Exam Abdominal: Present soft and normoactive bowel sounds; Absent tenderness *Routine Extremities Exam Extremities: Absent cyanosis, clubbing or edema Comments: Lower extremities with chronic weeping blisters wrapped in gauze and Bhavik bandage. Edema has resolved today. *Routine Skin Exam Skin: Present warm; Absent rash *Routine Neurological Exam Neurological: Present alert and oriented X3 Assessment and Plan *Assessment and plan (1) Non-ST elevation [place] (NSTEMI): Status: Acute Category: Medical Code(s): I21.4 - Non-ST elevation (NSTEMI) myocardial infarction (2) CHF (congestive heart failure): Status: Acute Category: Medical Code(s): I50.9 - Heart failure, unspecified Plan Riki Mckeon is a 78 year old male with a medical history significant for hypothyroidism and BPH presents with worsening shortness of breath of the past few days. He states hes been cough more but not productive. Denies chest pain, fevers. Workup in the ED significant for WBC 17.4, potassium 5.2, troponin 0.30- >2.57, BNP 3170. VBG unremarkable. CTA chest shows bilateral ground glass opacities. Requiring 2L, baseline none. Case discussed with ED and decision was made to admit paient for acute hypoxic respiratory failure from heart failure exacerbation and elevated troponins #NSTEMI #CAD s/p 6 stents 05/31/24 ? Uptrending trops from 0.3-7. ? Patient underwent 5 vessel stenting and reconstruction after he refused transfer for CABG. ? Currently chest pain-free. ? Aspirin, Plavix, atorvastatin, metoprolol. ? Continues telemetry. ? Cardiology wants to keep patient inpatient over the weekend due to high risk. Will reevaluate tomorrow. #Acute hypoxic respiratory failure # HFrEF exacerbation - Endorses several month onset of SOB, worse over the last few days prior to admission. - Has pulmonary and LE edema on admission. States his lower extremity chronic weeping blisters have worsened over the past week. ? Edema today has resolved. - IV Lasix 40mg BID. Follow renal function, electrolytes. - Follow-up ECHO, A1c, TSH, lipid panel. ? Elevated TSH 8.64, follow-up free T4. - Cardiology consulted, appreciate recommendations. - Wean O2 as tolerated, currently 2L. #Hypothyroidism #BPH -Resumed home levothyroxine, tamsulosin FULL CODE Lovenox
[2024-06-01] VITALS (8 sets, daily range): BP systolic 111–142; BP diastolic 62–82; PULSE 70–126; RESP 18–20; TEMP 36.5–38.1; O2SAT 94–99; BMI 41.1
--- NOTE | 2024-06-01 05:20 | PC.NURSE ---
Patient has remained alert and oriented x4 this shift. Tolerating room air well with o2 stats >90%. Right radial cath site is dressed with 4x4 and tegaderm, C/D/I at this time. Earlier in the shift, patient was asleep and removed his radial band before all the air was let out. No complaints of chest pain or discomfort this shift. BLE unna boots applied, extremely foul smelling. Adequate urine output through purewick. IV antibiotics administered per MAR. VSS. Call light within reach.
[2024-06-01 05:22] LABS: HCV Ab Non Reactive (Non Reactive)
[2024-06-01] MEDS: LEVOTHYROXINE 100MCG (0.1MG) TAB 100 MCG PO (06:04)
[2024-06-01 06:55] LABS: Chloride 101 mmol/L (98-107); Sodium 136 mmol/L (136-145)
[2024-06-01 06:58] LABS: Blood Urea Nitrogen 28 mg/dl (9-20); Calcium 8.1 mg/dl (8.4-10.2); Carbon Dioxide 23 mmol/L (22.0-30.0); Creatinine Clearance Estimated 30 mL/min (50-200); Estimated Glomerular Filt Rate 33 ml/min (>60); GFR (African American) 39 ML/MIN (>60); Glucose 96 mg/dl (74-100)
[2024-06-01 07:28] LABS: Basophils # 0.1 K/mm3 (0-0.2); Basophils % 0.5 % (0.1-2.0); Eosinophils # 0.2 K/mm3 (0.0-0.4); Eosinophils % 2.3 % (0.1-12.0); Hematocrit 32.6 % (42.0-52.0); Lymphocytes # 1.4 K/mm3 (0.7-4.5); Lymphocytes % 13.5 % (10-50); Mean Corpuscular HGB Conc 30.6 g/dL (31.8-35.4); Mean Corpuscular Hemoglobin 28.6 pg (27.0-31.2); Mean Corpuscular Volume 93.6 fl (80-94); Mean Platelet Volume 6.9 fl (7.4-10.4); Monocytes # 0.8 K/mm3 (0.1-1.0); Monocytes % 7.6 % (1.7-9.3); Neutrophils # 7.6 K/mm3 (1.8-7.8); Neutrophils % 76.1 % (37.0-80.0); Platelet Count 367 K/mm3 (142-424); Red Blood Count 3.48 M/mm3 (4.60-6.20); Red Cell Distribution Width 14.8 % (11.5-17.5)
[2024-06-01] MEDS: CLOPIDOGREL 75MG TAB 75 MG PO (09:47)
[2024-06-01] MEDS: EMPAGLIFLOZIN 10MG TABLET 10 MG PO (09:47)
[2024-06-01] MEDS: METOPROLOL SUCCINATE XL 25MG TABLET 25 MG PO (09:47)
[2024-06-01] MEDS: ASPIRIN EC 81MG TABLET 81 MG PO (09:47)
--- NOTE | 2024-06-01 11:09 | EXP.CARD.PN ---
Subjective Subjective Date: 06/01/24 Time: 10:00 Interval history: Patient had left heart cath yesterday with 7 stents. Admitted overnight with no events. Recommendation was to observe through the weekend for ERIBERTO. Exam Data for Last 24 hours Vital signs and Labs for Last 24 Hours: Temp Pulse Resp BP Pulse Ox O2 Del Method O2 Flow Rate 97.9 F 70 19 131/82 99 Room Air 2 06/01/24 08:00 06/01/24 08:00 06/01/24 08:00 06/01/24 08:00 06/01/24 08:00 06/01/24 09:50 05/31/24 20:00 Laboratory Results - last 24 hr 05/30/24 17:39: Hepatitis C Antibody Non reactive 05/31/24 09:30: Sodium 135 L, Potassium 3.4 L D, Chloride 103, Carbon Dioxide 24, Anion Gap 11.4, BUN 23 H, Creatinine 1.80 H D, Estimated Creat Clear 33, Estimated GFR 37 L, Est GFR ( Amer) 44 L D, Glucose 120 H, Calcium 8.0 L 05/31/24 14:30: Activated Clotting Time > 400 H* 05/31/24 15:07: Activated Clotting Time 230 H* D 05/31/24 16:26: APTT 111.4 H* 06/01/24 05:38: WBC 10.0 D, RBC 3.48 L, Hgb 10.0 L, Hct 32.6 L, MCV 93.6, MCH 28.6, MCHC 30.6 L, RDW 14.8, Plt Count 367, MPV 6.9 L, Neut % (Auto) 76.1, Lymph % (Auto) 13.5, [place] % (Auto) 7.6, Eos % (Auto) 2.3, Baso % (Auto) 0.5, Neut # (Auto) 7.6, Lymph # (Auto) 1.4, [place] # (Auto) 0.8, Eos # (Auto) 0.2, Baso # (Auto) 0.1, Sodium 136, Potassium 4.0, Chloride 101, Carbon Dioxide 23, Anion Gap 16.0 H, BUN 28 H, Creatinine 2.00 H, Estimated Creat Clear 30, Estimated GFR 33 L, Est GFR ( Amer) 39 L, Glucose 96, Calcium 8.1 L I & O for Last 24 hours: Intake & Output 05/29/24 05/30/24 05/31/24 06/01/24 23:59 23:59 23:59 23:59 Intake Total 960 / 960 470 / 470 Output Total 750 / 1250 2900 / 2900 700 / 700 Balance -750 / -830 -1940 / -1940 -230 / -230 Weight 274 lb 4.8 oz 273 lb 13.026 oz 271 lb 3 oz Microbiology Reports for the Last 24 Hours: Microbiology 05/30/24 13:55 Blood Blood Culture - Preliminary Strep agalactiae - (group b) 05/30/24 14:30 Blood Blood Culture - Preliminary NO GROWTH AFTER 24 HOURS *Routine Extremities Exam Comments: Bilateral lower extremities wrapped for lymphedema, bandages need changing Progress Note: A&P Assessment and plan (1) Non-ST elevation MA (NSTEMI): Status: Acute (2) HFrEF (heart failure with reduced ejection fraction): Status: Acute (3) Chronic acquired lymphedema: Status: Chronic (4) Morbid obesity with BMI of 40.0-44.9, adult: Status: Chronic (5) Hypertension: Status: Chronic Assessment and Plan Assessment and Plan for All Diagnoses:: MV-CAD s/p NSTEMI and PCI 05/31/24 - CCS = 4 anginal equivalent CÁRDENAS/SOA, rising serial Trop to 7, EKG with q-waves anterior leads - likely had MA on Wednesday when symptoms began - C: 5 vessel stenting/reconstruction - ECHO shows EF 30% with severely hypokinetic apex - Cont ASA, Plavix, Statin, BB HFrEF, Ischemic Cardiomyopathy - new dx this admission with EF 30% on ECHO, ProBNP 3k, groundglass opacities on CT and NYHA = 4 symptoms - new multivessel dz noted on LHC here s/p successful stenting - pt agreeable to LifeVest - Cont BB and SGLT-2. 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
--- NOTE | 2024-06-01 11:43 | HMH.OTEV ---
OT Inpatient Evaluation Rehab OT IP Evaluation Start: 06/01/24 10:43 Freq: ONCE Status: Active Protocol: Document 06/01/24 11:39 CATIERENEE (Rec: 06/01/24 11:43 CATIERENEE [id number]) Rehab OT IP Assessment Subjective History Riki Mckeon is a 78 year old male with a medical history significant for hypothyroidism and BPH presents with worsening shortness of breath of the past few days. He states hes been cough more but not productive. Denies chest pain, fevers. Workup in the ED significant for WBC 17.4, potassium 5.2, troponin 0.30-> 2.57, BNP 3170. VBG unremarkable. CTA chest shows bilateral ground glass opacities. Requiring 2L, baseline none. Case discussed with ED and decision was made to admit paient for acute hypoxic respiratory failure from heart failure exacerbation and elevated troponins. Patient lives alone on first floor apt. Uses a rollator at times if needed. Independent with ADLs and fx'l mobility. 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 Subjective I can try to get up. Instructed patient on proper hand and foot placement to complete sit->stand transfers with needing Mod A with usage of RW and NWB to R UE. Patient required extended time and demonstrated fair+ dynamic standing balance. No LOB noted . Instructed Patient to complete 1-2 steps within reach to facility fx'l mobility within environment with usage of RW. Assisted Patient back to recliner with Mod A and needs met at end of session. Objective Patient Orientation Person,Name,Age,Birthday,Year Right Upper Extremity Gross ROM WFL Left Upper Extremity Gross ROM WFL Transfer Training Sit/Stand/Pivot Transfer Assist Level Moderate x 1 (50% assist) Chair Transfer Ability Moderate x 1 (50% assist) Chair Transfer Technique Sit to/from Ambulatory Chair Transfer Assistive Devices Rolling Walker Rehab OT IP prob,goals,plan Problems Date of Evaluation: 06/01/24 OT IP Problems Bed Mobility,Transfers,Balance ,Self care,Safety Rehab Potential Rehab Potential Good Equipment Needs Assistive Devices Rolling / Wheeled Walker Plan OT intervention Plan Bed Mobility,Transfers,Balance ,Self care,Safety,Therapeutic Exercise OT Plan Frequency Daily Duration LOS Discharge Goals Sit to Stand Chair Transfer Ability Minimal x 2 (25% assist) Chair Transfer Ability Minimal x 2 (25% assist) Chair Transfer Technique Sit to/from Ambulatory Chair Transfer Assistive Devices Rolling Walker Discharge Plan OT Discharge Plan Patient requested to return home with HH services. OT Educated Patient re: needing 24/7 care at the moment in order to improve safety, balance and ADLs with appropriate AE/devices. Recommend correction facility til d/c home. Patient to continue skilled OT Services while here at [facility]. Eval Complexity Eval Charge Codes 20274 - Low Complexity PHYSICIAN CERTIFICATION: I certify the specified therapy services for Riki Mckeon are required, authorized, and reviewed every 30 days.
--- NOTE | 2024-06-01 13:02 | SW/DCPLANNER ---
Addendum entered by Maia Hart 06/05/24 08:55: Per [facility] castañeda/ [facility] this patient can admit to facility today SNF level of care. Addendum entered by Maia Hart 06/02/24 13:05: [facility] will be onsite to speak w/ patient today. Addendum entered by Maia Hart 06/02/24 09:31: Patient and daughter voiced this AM if [facility] does not have a bed available then patient/family prefer to return home w/ home health services. I will continue to follow up w/ and [facility] at time of discharge. Addendum entered by Maia Hart 06/01/24 15:05: [facility] is interested in referral but will not have a bed open till 06/04. Discharge date is unknown at this time. I will fax information to [facility] if patient is ready for discharge prior to 06/04. Original Note: I spoke w/ this patient regarding plans once medically stable for discharge. PT/OT evaluated patient and recommended SNF level of care at time of discharge. Patient is agreeable to placement at this time and prefers [place]. Patient stated that if [facility] can not accept he would be willing to go to [place]. Patient information will be faxed to [facility] today. Discharge date is unknown at this time.
--- NOTE | 2024-06-01 13:28 | P.PN_ITS ---
Subjective *Date: 06/01/24 *Time: 13:28 Interval history: Patient states he is feeling well today, chest pain-free. Has not ambulated much. Once his legs to be evaluated by wound care. Exam Data for Last 24 hours Vital signs and Labs for Last 24 Hours: Temp Pulse Resp BP Pulse Ox O2 Del Method O2 Flow Rate 97.7 F 75 20 118/66 98 Room Air 2 06/01/24 11:49 06/01/24 12:00 06/01/24 11:49 06/01/24 11:49 06/01/24 11:49 06/01/24 12:13 05/31/24 20:00 Laboratory Results - last 24 hr 05/30/24 17:39: Hepatitis C Antibody Non reactive 05/31/24 14:30: Activated Clotting Time > 400 H* 05/31/24 15:07: Activated Clotting Time 230 H* D 05/31/24 16:26: APTT 111.4 H* 06/01/24 05:38: WBC 10.0 D, RBC 3.48 L, Hgb 10.0 L, Hct 32.6 L, MCV 93.6, MCH 28.6, MCHC 30.6 L, RDW 14.8, Plt Count 367, MPV 6.9 L, Neut % (Auto) 76.1, Lymph % (Auto) 13.5, [place] % (Auto) 7.6, Eos % (Auto) 2.3, Baso % (Auto) 0.5, Neut # (Auto) 7.6, Lymph # (Auto) 1.4, [place] # (Auto) 0.8, Eos # (Auto) 0.2, Baso # (Auto) 0.1, Sodium 136, Potassium 4.0, Chloride 101, Carbon Dioxide 23, Anion Gap 16.0 H, BUN 28 H, Creatinine 2.00 H, Estimated Creat Clear 30, Estimated GFR 33 L, Est GFR ( Amer) 39 L, Glucose 96, Calcium 8.1 L I & O for Last 24 hours: Intake & Output 05/29/24 05/30/24 05/31/24 06/01/24 23:59 23:59 23:59 23:59 Intake Total 960 / 960 1010 / 1010 Output Total 750 / 1250 2900 / 2900 1125 / 1125 Balance -750 / -830 -1940 / -1940 -115 / -115 Weight 124.42 kg 124.2 kg 123.009 kg Microbiology Reports for the Last 24 Hours: Microbiology 05/30/24 13:55 Blood Blood Culture - Preliminary Strep agalactiae - (group b) 05/30/24 14:30 Blood Blood Culture - Preliminary NO GROWTH AFTER 24 HOURS Constitutional Constitutional: no acute distress *Routine HEENT Exam Head: Present normocephalic Eye: Present EOMI and PERRL ENT: Present mucous membranes moist *Routine Neck Exam Neck: Present supple; Absent lymphadenopathy *Routine Respiratory Exam Respiratory: Present CTA bilaterally *Routine Cardiovascular Exam Cardiovascular: Present RRR *Routine Abdominal Exam Abdominal: Present soft and normoactive bowel sounds; Absent tenderness *Routine Extremities Exam Extremities: Absent cyanosis, clubbing or edema Comments: Lower extremities with chronic weeping blisters wrapped in gauze and Bhavik bandage. Edema has resolved. *Routine Skin Exam Skin: Present warm; Absent rash *Routine Neurological Exam Neurological: Present alert and oriented X3 Assessment and Plan *Assessment and plan (1) Non-ST elevation VA (NSTEMI): Status: Acute Category: Medical Code(s): I21.4 - Non-ST elevation (NSTEMI) myocardial infarction (2) CHF (congestive heart failure): Status: Acute Category: Medical Code(s): I50.9 - Heart failure, unspecified Plan Riki Mckeon is a 78 year old male with a medical history significant for hypothyroidism and BPH presents with worsening shortness of breath of the past few days. He states hes been cough more but not productive. Denies chest pain, fevers. Workup in the ED significant for WBC 17.4, potassium 5.2, troponin 0.30- >2.57, BNP 3170. VBG unremarkable. CTA chest shows bilateral ground glass opacities. Requiring 2L, baseline none. Case discussed with ED and decision was made to admit paient for acute hypoxic respiratory failure from heart failure exacerbation and elevated troponins #NSTEMI #CAD s/p 6 stents 05/31/24 ? Uptrending trops from 0.3-7 on admission. ? Patient underwent 5 vessel stenting and reconstruction after he refused transfer for CABG. ? Continues to be chest pain-free. Denies shortness of breath ? Aspirin, Plavix, atorvastatin, metoprolol. ? Continues telemetry. ? Cardiology wants to keep patient inpatient over the weekend due to high risk. Will reevaluate tomorrow. #Acute hypoxic respiratory failure # HFrEF exacerbation - Endorses several month onset of SOB, worse over the last few days prior to admission. - Has pulmonary and LE edema on admission. States his lower extremity chronic weeping blisters have worsened over the past week. ? ECHO 05/30/2024 LVEF 30%, moderate to severe global hypokinesis, distal apical LV charlton akinetic. ? Edema continues to be resolved. ? Discontinued IV Lasix 40 twice daily given euvolemia and uptrending creatinine. ? Start Lasix 40 mg daily tomorrow. Follow renal function, electrolytes. - A1c 6.0, lipid panel unremarkable. ? Elevated TSH 8.64, follow-up free T4. ? Start and uptitrate GDMT as tolerated. Continue metoprolol, Jardiance. - Cardiology consulted, appreciate recommendations. - Wean O2 as tolerated, currently 2L. #Suspected community-acquired pneumonia ? CTA does show groundglass opacities, and there is leukocytosis which is improving 17-10 today. ? Continue ceftriaxone, azithromycin for total 5 days. #FRANCESCA ? Creatinine 1.8-2.0 today., Baseline around 1.4 ? Precipitated by fluid overload, and aggressive IV diuresis. ? Transition to p.o. diuresis tomorrow. ? Continue to follow BMP tomorrow #Physical deconditioning ? PT OT consulted, pending recommendations #Lower extremity weeping wounds ? Chronic. Follows with wound care outpatient at least 2 times a week. ? Wound care consulted, pending recommendations per #Hypothyroidism #BPH -Resumed home levothyroxine, tamsulosin FULL CODE Lovenox
--- NOTE | 2024-06-01 13:42 | HMH.PTEV ---
Physical Therapy Evaluation Rehab PT IP Evaluation Start: 06/01/24 10:43 Freq: ONCE Status: Active Protocol: Document 06/01/24 13:38 MARGI (Rec: 06/01/24 13:41 MARGI [id number]) Subjective/History History History Per H&P: Riki Mckeon is a 78 year old male with a medical history significant for hypothyroidism and BPH presents with worsening shortness of breath of the past few days. He states hes been cough more but not productive. Denies chest pain, fevers. Workup in the ED significant for WBC 17.4, potassium 5.2, troponin 0.30-> 2.57, BNP 3170. VBG unremarkable. CTA chest shows bilateral ground glass opacities. Requiring 2L, baseline none. Case discussed with ED and decision was made to admit paient for acute hypoxic respiratory failure from heart failure exacerbation and elevated troponins. Subjective Subjective Pt sitting in recliner and agreeable to PT evaluation. Patient lives alone on first floor apt. Uses a rollator at times if needed. Independent with ADLs and fx'l mobility. 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 New diagnosis of cancer in past 12 No months? Rehab PT IP Eval Objective Appearance Patient Behavior Appropriate,Cooperative Patient Orientation Person,Situation Difficulty following instructions none Speech Pattern Clear Ambulation Patient Able to Ambulate Yes Ambulation Observation IP General Gait Pattern Observation Wide Based Gait Ambulation Distance (feet) 15 Ambulation Assistive Device Standard Walker Ambulation Ability Minimal x 2 (25% assist) Transfers Bed Transfer Ability Minimal x 1 (25% assist) Sit to Stand Bed Transfer Ability Moderate x 2 (50% assist) Rehab PT IP prob,goals,plan Problems Date of Evaluation: 06/01/24 PT IP Problems Bed Mobility,Transfers,Gait, Balance,Self care,Safety Rehab Potential Rehab Potential Good Plan PT Intervention Plan Bed Mobility,Transfers,Gait, Balance,Self care,Safety, Therapeutic Exercise Discharge Goals Bed Transfer Ability Supervision/Stand by Sit to Stand Chair Transfer Ability Moderate x 1 (50% assist) Ambulation Assistive Device Standard Walker Ambulation Distance (feet) 20 Discharge Plan PT Discharge Plan Initial physical therapy evaluation performed. Patient presents below baseline at this time in functional mobility, transfers, and strength. Pt not safe to return home at this time d/t current level of functional mobility. PT recommending short-term rehabilitation stay upon d/c from [facility]. Pt would benefit from skilled PT while at [facility] to prevent further functional decline and maximize safety with mobility. Eval Complexity Eval Charge Codes 29394 - Moderate Complexity PHYSICIAN CERTIFICATION: I certify the specified therapy services for Riki Mckeon are required, authorized, and reviewed every 30 days.
--- NOTE | 2024-06-01 14:29 | PC.NURSE ---
Patient is alert and oriented x4, o2 stats >90%. Right radial cath site is dressed with 4x4 and tegaderm, C/D/I, No complaints of chest pain or discomfort at this time, BLE unna boots in place, purewick in place, on contact for CRE, 20g r ac sl.
[2024-06-01] MEDS: CEFTRIAXONE 1 GM 1 GM in 0.9 % SODIUM CHLORIDE 50 ML IV (15:37)
--- NOTE | 2024-06-01 16:25 | HMH.PTWOUND ---
Rehab Inpt Wound Evaluation Rehab IP Wound Evaluation Start: 06/01/24 08:38 Freq: ONCE Status: Active Protocol: Document 06/01/24 15:20 MARGI (Rec: 06/01/24 16:17 MARGI [id number]) Rehab PT Wound Assessment Subjective Subjective Pt agreeable to PT wound evaluation. Wound Right Lower Lateral Calf Wound Length (cm) 0.5 Wound Width (cm) 0.5 Wound Bed Appearance [place] Percentage of Slough (%) 100 Surrounding Tissue Appearance Macerated Primary Dressing Unna Boot Dressing Change Patient Tolerance Tolerated Well Right Lower Medial Calf Wound Length (cm) 0.5 Wound Width (cm) 0.5 Wound Bed Appearance [place] Percentage of Slough (%) 100 Primary Dressing Unna Boot Dressing Change Patient Tolerance Tolerated Well Left Medial Ankle Is This a Chronic Wound Yes Wound Length (cm) 1.4 Wound Width (cm) 1.5 Wound Bed Appearance [place] Percentage of Slough (%) 100 Surrounding Tissue Appearance Macerated Drainage Odor Foul Odor Primary Dressing Unna Boot Dressing Change Patient Tolerance Tolerated Well Left Lateral Ankle Is This a Chronic Wound Yes Wound Length (cm) 2.6 Wound Width (cm) 0.9 Wound Bed Appearance [place] Percentage of Slough (%) 100 Wound Margins Description Macerated Wound Drainage Description Purulent Drainage Amount Moderate Drainage Odor Foul Odor Dressing Status Changed Wound Topical Solution/Irrigant Saline Irrigant Primary Dressing Unna Boot Dressing Change Patient Tolerance Tolerated Well Plan/Recommendation Comment Riki Mckeon is a 78 y/o male who has been regularly seen for his current wounds by outpatient wound care at [facility]. Pt presents with BLE edema with multiple indistinct wounds on B lower legs. The L LE has two open wounds (one on lateral malleolus and one on medial malleolus) both of which are 100% ha slough. RLE has one 0.5x0.5 wound with 100% ha slough. Periwound area on BLEs is macerated. R lower leg wounds displays serous drainage while the L lower leg wounds present with purulent drainage. Wound care PTAs present to apply bilateral Unna Boots. PT and PTAs instructed pt and nursing to remove Unna boots if itching or irritation occurs. Both verbalized understanding. Pt will continue to require skilled wound care upon d/c. Recommended to continue seeing outpatient wound care at [facility] once d/c'd from nursing home facility. Eval Complexity Eval Charge Codes 38411 - Moderate Complexity PHYSICIAN CERTIFICATION: I certify the specified therapy services for Riki Mckeon are required, authorized, and reviewed every 30 days.
[2024-06-01] MEDS: ACETAMINOPHEN 500MG TAB 500 MG PO (20:31)
[2024-06-01] MEDS: AZITHROMYCIN 500 MG in 0.9 % SODIUM CHLORIDE 250 ML 250 MG IV (20:31)
[2024-06-01] MEDS: TAMSULOSIN 0.4MG CAPSULE 0.8 MG PO (20:32)
[2024-06-01] MEDS: ATORVASTATIN 40MG TABLET 40 MG PO (20:32)
[2024-06-02] VITALS: BP 138/79; PULSE 80; PULSE 82; RESP 16; TEMP 36.7; O2SAT 98
[2024-06-02 00:51] VITALS: BMI 40.5
[2024-06-02 04:00] VITALS: BP 131/91; PULSE 79; PULSE 84; RESP 16; TEMP 36.4; O2SAT 99
--- NOTE | 2024-06-02 04:55 | PC.NURSE ---
Remains on Contact Isolation due to past CRE. A/O x 4. Pleasant and cooperative. SR/1st Degree AVB with some PVCs noted per tele. No complaints of SOA, Pain, or discomfort. Purewick in use, urine clear yellow. Drsg to right wrist card. cath site C/D/I. Vital signs stable, afebrile.
[2024-06-02] MEDS: LEVOTHYROXINE 100MCG (0.1MG) TAB 100 MCG PO (06:05)
[2024-06-02 06:12] LABS: Basophils # 0.1 K/mm3 (0-0.2); Basophils % 0.5 % (0.1-2.0); Eosinophils # 0.5 K/mm3 (0.0-0.4); Eosinophils % 4.9 % (0.1-12.0); Hematocrit 31.6 % (42.0-52.0); Hemoglobin 9.9 g/dL (14.1-18.0); Lymphocytes # 1.4 K/mm3 (0.7-4.5); Lymphocytes % 14.3 % (10-50); Mean Corpuscular HGB Conc 31.4 g/dL (31.8-35.4); Mean Corpuscular Hemoglobin 29.3 pg (27.0-31.2); Mean Corpuscular Volume 93.3 fl (80-94); Mean Platelet Volume 6.8 fl (7.4-10.4); Monocytes # 0.6 K/mm3 (0.1-1.0); Neutrophils # 7.4 K/mm3 (1.8-7.8); Neutrophils % 74.3 % (37.0-80.0); Platelet Count 375 K/mm3 (142-424); Red Blood Count 3.39 M/mm3 (4.60-6.20); Red Cell Distribution Width 14.8 % (11.5-17.5)
[2024-06-02 06:21] LABS: Chloride 103 mmol/L (98-107)
[2024-06-02 06:22] LABS: Potassium 3.8 mmoL/L (3.5-5.1); Sodium 137 mmol/L (136-145)
[2024-06-02 06:25] LABS: Anion Gap 13.8 mEq/L (5-15); Blood Urea Nitrogen 26 mg/dl (9-20); Carbon Dioxide 24 mmol/L (22.0-30.0); Creatinine Clearance Estimated 66 mL/min (50-200); Estimated Glomerular Filt Rate 42 ml/min (>60); GFR (African American) 51 ML/MIN (>60); Glucose 99 mg/dl (74-100)
[2024-06-02 06:44] LABS: Free T4 (Free Thyroxine) 1.13 ng/dl (0.78-2.19)
[2024-06-02 08:00] VITALS: BP 136/74; PULSE 80; RESP 16; TEMP 37; O2SAT 97
[2024-06-02] MEDS: CLOPIDOGREL 75MG TAB 75 MG PO (08:48)
[2024-06-02] MEDS: EMPAGLIFLOZIN 10MG TABLET 10 MG PO (08:48)
[2024-06-02] MEDS: FUROSEMIDE 40 MG TABLET PO (08:48)
[2024-06-02] MEDS: METOPROLOL SUCCINATE XL 25MG TABLET 25 MG PO (08:48)
[2024-06-02] MEDS: ASPIRIN EC 81MG TABLET 81 MG PO (08:48)
--- NOTE | 2024-06-02 10:13 | EXP.CARD.PN ---
Subjective Subjective Date: 06/02/24 Time: 09:00 Interval history: Cr improved to 1.6 overnight. Pt denies CP, SOA, palps. Exam Data for Last 24 hours Vital signs and Labs for Last 24 Hours: Temp Pulse Resp BP Pulse Ox O2 Del Method O2 Flow Rate 98.6 F 80 16 136/74 97 Room Air 2 06/02/24 08:00 06/02/24 08:00 06/02/24 08:00 06/02/24 08:00 06/02/24 08:00 06/02/24 09:00 05/31/24 20:00 Laboratory Results - last 24 hr 06/02/24 05:57: WBC 10.0, RBC 3.39 L, Hgb 9.9 L, Hct 31.6 L, MCV 93.3, MCH 29.3, MCHC 31.4 L, RDW 14.8, Plt Count 375, MPV 6.8 L, Neut % (Auto) 74.3, Lymph % (Auto) 14.3, [place] % (Auto) 6.0, Eos % (Auto) 4.9, Baso % (Auto) 0.5, Neut # (Auto) 7.4, Lymph # (Auto) 1.4, [place] # (Auto) 0.6, Eos # (Auto) 0.5 H, Baso # (Auto) 0.1, Sodium 137, Potassium 3.8, Chloride 103, Carbon Dioxide 24, Anion Gap 13.8, BUN 26 H, Creatinine 1.60 H, Estimated Creat Clear 66, Estimated GFR 42 L, Est GFR ( Amer) 51 L D, Glucose 99, Calcium 8.0 L, Free T4 1.13 I & O for Last 24 hours: Intake & Output 05/30/24 05/31/24 06/01/24 06/02/24 23:59 23:59 23:59 23:59 Intake Total 960 / 960 1495 / 2105 1250 / 1250 Output Total 750 / 1250 2900 / 2900 1650 / 1650 600 / 600 Balance -750 / -830 -1940 / -1940 -155 / 455 650 / 650 Weight 274 lb 4.8 oz 273 lb 13.026 oz 271 lb 2.697 oz 267 lb 6.4 oz Microbiology Reports for the Last 24 Hours: Microbiology 05/30/24 16:55 Buttock CRE Surveillance Culture - Final Negative 05/30/24 14:30 Blood Blood Culture - Preliminary NO GROWTH AFTER 48 HOURS 05/30/24 13:55 Blood Blood Culture - Preliminary Strep agalactiae - (group b) Constitutional Constitutional: no acute distress and cooperative *Routine HEENT Exam Eye: Present PERRL *Routine Respiratory Exam Respiratory: Present CTA bilaterally; Absent accessory muscle use, wheezes or crackles *Routine Cardiovascular Exam Cardiovascular: Present RRR, Normal S1 and Normal S2; Absent murmur, gallop or rubs Comments: right radial cath site normal on insecption and palpation *Routine Abdominal Exam Abdominal: Present soft; Absent tenderness *Routine Extremities Exam Extremities: Present pulses intact; Absent cyanosis or edema *Routine Skin Exam Skin: Present intact; Absent erythema or wounds *Routine Neurological Exam Neurological: Present alert and oriented X3 Routine Psychiatric Exam Psychiatric: Present cooperative Progress Note: A&P Assessment and plan (1) Non-ST elevation [place] (NSTEMI): Status: Acute (2) CHF (congestive heart failure): Status: Acute Assessment and Plan Assessment and Plan for All Diagnoses:: MV-CAD s/p NSTEMI and PCI 05/31/24 - CCS = 4 anginal equivalent CÁRDENAS/SOA, rising serial Trop to 7, EKG with q-waves anterior leads - likely had IN on Wednesday when symptoms began - [facility]: 5 vessel stenting/reconstruction - ECHO shows EF 30% with severely hypokinetic apex - Cont ASA, Plavix, Statin, BB - 06/02: no change, cont current meds/plan HFrEF, Ischemic Cardiomyopathy - new dx this admission with EF 30% on ECHO, ProBNP 3k, groundglass opacities on CT and NYHA = 4 symptoms - new multivessel dz noted on [facility] here s/p successful stenting - pt agreeable to LifeVest - Cont BB and SGLT-2. Hold on ARNI/MRA due to ERIBERTO and low BP - 06/02: Cr and BP improved, add Entreso, Aldactone. 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 Add Entresto/Jardiance. If BP/Cr tolerate these tomorrow and he gets his LifeVest then he can DC home. He needs all current meds Rx at discharge and will need f/u in our office 1 week.
[2024-06-02] MEDS: SACUBITRIL/VALSARTAN 24-26MG TABLET 1 EACH PO ×2 (11:06→20:17)
[2024-06-02] MEDS: SPIRONOLACTONE 25MG TABLET 25 MG PO (11:06)
[2024-06-02 12:00] VITALS: BP 128/72; PULSE 55; PULSE 80; RESP 18; TEMP 36.6; O2SAT 97
--- NOTE | 2024-06-02 15:00 | PC.NURSE ---
pt has remained on room air this shift. pt has ambulated to and from bathroom and from bed to chair multiple times during shift w/ use of walker and sb assist. pt BLE are still wrapped in vanessa boots. pt has remained alert and oriented x4 this shift. pt was moved from stepdown room 216 to med/surg room 213 this a.m. pt has had no complaints throughout shift. plan for pt is to fit for lifevest on wednesday and possible d/c to [facility] [place]. no new orders at this time. call light within reach.
[2024-06-02 16:00] VITALS: BP 120/63; PULSE 69; PULSE 80; RESP 18; TEMP 37.1; O2SAT 97
[2024-06-02] MEDS: CEFTRIAXONE 1 GM 1 GM in 0.9 % SODIUM CHLORIDE 50 ML IV (16:49)
--- NOTE | 2024-06-02 17:32 | P.PN_ITS ---
Subjective *Date: 06/02/24 *Time: 17:32 Interval history: Patient continues to feel well, chest pain free. Denies shortness of breath. Working with physical therapy. Exam Data for Last 24 hours Vital signs and Labs for Last 24 Hours: Temp Pulse Resp BP Pulse Ox O2 Del Method O2 Flow Rate 98.8 F 69 18 120/63 97 Room Air 2 06/02/24 16:00 06/02/24 16:00 06/02/24 16:00 06/02/24 16:00 06/02/24 16:00 06/02/24 16:57 05/31/24 20:00 Laboratory Results - last 24 hr 06/02/24 05:57: WBC 10.0, RBC 3.39 L, Hgb 9.9 L, Hct 31.6 L, MCV 93.3, MCH 29.3, MCHC 31.4 L, RDW 14.8, Plt Count 375, MPV 6.8 L, Neut % (Auto) 74.3, Lymph % (Auto) 14.3, [place] % (Auto) 6.0, Eos % (Auto) 4.9, Baso % (Auto) 0.5, Neut # (Auto) 7.4, Lymph # (Auto) 1.4, [place] # (Auto) 0.6, Eos # (Auto) 0.5 H, Baso # (Auto) 0.1, Sodium 137, Potassium 3.8, Chloride 103, Carbon Dioxide 24, Anion Gap 13.8, BUN 26 H, Creatinine 1.60 H, Estimated Creat Clear 66, Estimated GFR 42 L, Est GFR ( Amer) 51 L D, Glucose 99, Calcium 8.0 L, Free T4 1.13 I & O for Last 24 hours: Intake & Output 05/30/24 05/31/24 06/01/24 06/02/24 23:59 23:59 23:59 23:59 Intake Total 960 / 960 1495 / 2105 1920 / 1920 Output Total 750 / 1250 2900 / 2900 1650 / 1650 1250 / 1250 Balance -750 / -830 -1940 / -1940 -155 / 455 670 / 670 Weight 124.42 kg 124.2 kg 123 kg 121.291 kg Microbiology Reports for the Last 24 Hours: Microbiology 05/30/24 16:55 Buttock CRE Surveillance Culture - Final Negative 05/30/24 14:30 Blood Blood Culture - Preliminary NO GROWTH AFTER 48 HOURS Constitutional Constitutional: no acute distress *Routine HEENT Exam Head: Present normocephalic Eye: Present EOMI and PERRL ENT: Present mucous membranes moist *Routine Neck Exam Neck: Present supple; Absent lymphadenopathy *Routine Respiratory Exam Respiratory: Present CTA bilaterally *Routine Cardiovascular Exam Cardiovascular: Present RRR *Routine Abdominal Exam Abdominal: Present soft and normoactive bowel sounds; Absent tenderness *Routine Extremities Exam Extremities: Absent cyanosis, clubbing or edema Comments: Lower extremities with chronic weeping blisters wrapped Unna boots. Edema has resolved. *Routine Skin Exam Skin: Present warm; Absent rash *Routine Neurological Exam Neurological: Present alert and oriented X3 Assessment and Plan *Assessment and plan (1) Non-ST elevation [place] (NSTEMI): Status: Acute Category: Medical Code(s): I21.4 - Non-ST elevation (NSTEMI) myocardial infarction (2) CHF (congestive heart failure): Status: Acute Category: Medical Code(s): I50.9 - Heart failure, unspecified Plan Riki Mckeon is a 78 year old male with a medical history significant for hypothyroidism and BPH presents with worsening shortness of breath of the past few days. He states hes been cough more but not productive. Denies chest pain, fevers. Workup in the ED significant for WBC 17.4, potassium 5.2, troponin 0.30- >2.57, BNP 3170. VBG unremarkable. CTA chest shows bilateral ground glass opacities. Requiring 2L, baseline none. Case discussed with ED and decision was made to admit paient for acute hypoxic respiratory failure from heart failure exacerbation and elevated troponins #NSTEMI #CAD s/p 6 stents 05/31/24 ? Uptrending trops from 0.3-7 on admission. ? Patient underwent 5 vessel stenting and reconstruction after he refused transfer for CABG. ? Patient continues to feel well, chest pain-free. Worked with physical therapy today without issues. Denies shortness of breath. ? Aspirin, Plavix, atorvastatin, metoprolol. ? Continues telemetry. ? Cardiology wants to keep patient inpatient over the weekend due to high risk. Will reevaluate tomorrow. ? Patient and family also feel very nervous to go home today with home health as patient essentially lives by himself. They prefer SNF placement, and do not wish to go to [facility] which is available today. #Acute hypoxic respiratory failure # HFrEF exacerbation - Endorses several month onset of SOB, worse over the last few days prior to admission. - Has pulmonary and LE edema on admission. States his lower extremity chronic weeping blisters have worsened over the past week before admission. ? ECHO 05/30/2024 LVEF 30%, moderate to severe global hypokinesis, distal apical LV charlton akinetic. ? Edema continues to be resolved. ?Lasix 40 mg daily. Had discontinued IV Lasix 40 twice daily given euvolemia and uptrending creatinine. ? Will need LifeVest upon discharge. - Follow renal function, electrolytes. - A1c 6.0, lipid panel unremarkable. ? Elevated TSH 8.64, normal T4. ? GDMT with Entresto, metoprolol, Jardiance, Spironolactone. - Cardiology consulted, appreciate efforts and recommendations. - Wean O2 as tolerated, currently 2L. #Suspected community-acquired pneumonia ? CTA does show groundglass opacities, and there is leukocytosis which is improving 17-10 today. WBC stable at 10 today. ? Continue ceftriaxone, azithromycin for total 5 days. #Physical deconditioning ? PT OT consulted, recommend SNF placement. #FRANCESCA ?Creatinine improved from 2.0-1.6 today after holding off on IV diuresis ye sterday. Baseline around 1.4 ? 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 Follows with wound care outpatient at least 2 times a week. ? Wound care consulted. ? Unna boots replaced today. #Hypothyroidism #BPH -Resumed home levothyroxine, tamsulosin FULL CODE Lovenox
[2024-06-02 20:00] VITALS: BP 123/59; PULSE 80; RESP 20; TEMP 36.6; O2SAT 97
[2024-06-02] MEDS: ATORVASTATIN 40MG TABLET 40 MG PO (20:17)
[2024-06-02] MEDS: TAMSULOSIN 0.4MG CAPSULE 0.8 MG PO (20:17)
[2024-06-02] MEDS: AZITHROMYCIN 250MG TABLET 500 MG PO (20:17)
[2024-06-03] VITALS (8 sets, daily range): BP systolic 109–141; BP diastolic 57–70; PULSE 70–85; RESP 16–26; TEMP 36.5–37.4; O2SAT 91–100; BMI 40.9
[2024-06-03] MEDS: LEVOTHYROXINE 100MCG (0.1MG) TAB 100 MCG PO (06:24)
[2024-06-03 07:07] LABS: Basophils # 0.1 K/mm3 (0-0.2); Basophils % 0.7 % (0.1-2.0); Eosinophils # 0.5 K/mm3 (0.0-0.4); Eosinophils % 5.4 % (0.1-12.0); Hematocrit 35.1 % (42.0-52.0); Hemoglobin 11.1 g/dL (14.1-18.0); Lymphocytes # 1.6 K/mm3 (0.7-4.5); Lymphocytes % 17.9 % (10-50); Mean Corpuscular HGB Conc 31.6 g/dL (31.8-35.4); Mean Corpuscular Hemoglobin 28.8 pg (27.0-31.2); Mean Corpuscular Volume 91.2 fl (80-94); Monocytes # 0.6 K/mm3 (0.1-1.0); Monocytes % 6.8 % (1.7-9.3); Neutrophils # 6.3 K/mm3 (1.8-7.8); Neutrophils % 69.2 % (37.0-80.0); Platelet Count 363 K/mm3 (142-424); Red Blood Count 3.85 M/mm3 (4.60-6.20); Red Cell Distribution Width 14.7 % (11.5-17.5); White Blood Count 9.1 K/mm3 (4.8-10.8)
[2024-06-03 07:12] LABS: Chloride 103 mmol/L (98-107); Potassium 3.7 mmoL/L (3.5-5.1); Sodium 137 mmol/L (136-145)
[2024-06-03 07:15] LABS: Anion Gap 10.7 mEq/L (5-15); Blood Urea Nitrogen 26 mg/dl (9-20); Carbon Dioxide 27 mmol/L (22.0-30.0); Creatinine Clearance Estimated 63 mL/min (50-200); Estimated Glomerular Filt Rate 39 ml/min (>60); GFR (African American) 48 ML/MIN (>60); Glucose 100 mg/dl (74-100)
--- NOTE | 2024-06-03 08:44 | EXP.PHA.PN ---
Subjective *Date: 06/03/24 *Time: 08:44 Medical Exam Vital signs and Labs for Last 24 Hours: Vital Signs Temp Pulse Pulse Resp BP Pulse Ox O2 Del Method 06/03/24 07:49 97.9 F 82 18 141/62 H 97 Room Air 06/03/24 07:00 Room Air 06/03/24 05:00 Room Air 06/03/24 04:00 98.9 F 73 26 H 138/68 99 Room Air 06/03/24 04:00 70 06/03/24 03:00 Room Air 06/03/24 01:00 Room Air 06/03/24 00:00 70 06/03/24 00:00 98.0 F 77 24 118/68 91 L Room Air 06/02/24 23:00 Room Air 06/02/24 21:00 Room Air 06/02/24 20:00 Room Air 06/02/24 20:00 80 06/02/24 20:00 97.9 F 80 20 123/59 L 97 Room Air 06/02/24 18:34 Room Air 06/02/24 16:57 Room Air 06/02/24 16:00 80 06/02/24 16:00 98.8 F 69 18 120/63 97 Room Air 06/02/24 15:00 Room Air 06/02/24 13:00 Room Air 06/02/24 12:00 80 06/02/24 12:00 97.8 F 55 L 18 128/72 97 Room Air 06/02/24 10:54 Room Air 06/02/24 09:00 Room Air Intake and Output 06/02/24 06/03/24 06/03/24 23:59 07:59 15:59 Intake Total 200 / 2360 240 / 240 Output Total 600 / 1850 350 / 350 Balance -400 / 510 -110 / -110 Intake: Intake, Oral Amount 200 / 2110 240 / 240 Output: Output, Urine Amount 600 / 1850 350 / 350 Other: Weight 122.555 kg Patient Weight 06/03/24 23:59 Weight 122.555 kg Laboratory Results - last 24 hr 06/03/24 06:26: WBC 9.1, RBC 3.85 L, Hgb 11.1 L, Hct 35.1 L, MCV 91.2, MCH 28.8, MCHC 31.6 L, RDW 14.7, Plt Count 363, MPV 7.0 L, Neut % (Auto) 69.2, Lymph % (Auto) 17.9, [place] % (Auto) 6.8, Eos % (Auto) 5.4, Baso % (Auto) 0.7, Neut # (Auto) 6.3, Lymph # (Auto) 1.6, [place] # (Auto) 0.6, Eos # (Auto) 0.5 H, Baso # (Auto) 0.1, Sodium 137, Potassium 3.7, Chloride 103, Carbon Dioxide 27, Anion Gap 10.7, BUN 26 H, Creatinine 1.70 H, Estimated Creat Clear 63, Estimated GFR 39 L, Est GFR ( Amer) 48 L, Glucose 100, Calcium 8.0 L I & O for Labs for Last 24 Hours: Intake & Output 05/31/24 06/01/24 06/02/24 06/03/24 23:59 23:59 23:59 23:59 Intake Total 960 / 960 1495 / 2105 2120 / 2360 240 / 240 Output Total 2900 / 2900 1650 / 1650 1850 / 1850 350 / 350 Balance -1940 / -1940 -155 / 455 270 / 510 -110 / -110 Weight 124.2 kg 123 kg 121.291 kg 122.555 kg Microbiology Reports for the Last 24 Hours: Microbiology 05/30/24 16:55 Buttock CRE Surveillance Culture - Final Negative The patient's infection will respond to the chosen ABx?: Yes Is the patient receiving the right drug, dose, and route?: Yes Could a more targeted ABx be ordered?: No (WBC WNL, AFEBRILE, S. AGALACTIAE IN ONE BLD CX. REPEAT CX NEGATIVE.)
[2024-06-03] MEDS: CLOPIDOGREL 75MG TAB 75 MG PO (09:20)
[2024-06-03] MEDS: SACUBITRIL/VALSARTAN 24-26MG TABLET 1 EACH PO ×2 (09:20→20:39)
[2024-06-03] MEDS: FUROSEMIDE 40 MG TABLET PO (09:20)
[2024-06-03] MEDS: ASPIRIN EC 81MG TABLET 81 MG PO (09:20)
[2024-06-03] MEDS: METOPROLOL SUCCINATE XL 25MG TABLET 25 MG PO (09:20)
[2024-06-03] MEDS: SPIRONOLACTONE 25MG TABLET 25 MG PO (09:21)
[2024-06-03] MEDS: EMPAGLIFLOZIN 10MG TABLET 10 MG PO (09:21)
--- NOTE | 2024-06-03 15:01 | P.PN_ITS ---
Subjective *Date: 06/03/24 *Time: 15:01 Interval history: Patient feels great today, working with physical therapy without issues. Walked up and down the [place]ambila today. No chest pain, shortness of breath. Received bed offer at [facility], available Wednesday. Exam Data for Last 24 hours Vital signs and Labs for Last 24 Hours: Temp Pulse Resp BP Pulse Ox O2 Del Method O2 Flow Rate 99.3 F 82 18 133/70 98 Room Air 2 06/03/24 11:20 06/03/24 11:20 06/03/24 11:20 06/03/24 11:20 06/03/24 11:20 06/03/24 11:20 05/31/24 20:00 Laboratory Results - last 24 hr 06/03/24 06:26: WBC 9.1, RBC 3.85 L, Hgb 11.1 L, Hct 35.1 L, MCV 91.2, MCH 28.8, MCHC 31.6 L, RDW 14.7, Plt Count 363, MPV 7.0 L, Neut % (Auto) 69.2, Lymph % (Auto) 17.9, [place] % (Auto) 6.8, Eos % (Auto) 5.4, Baso % (Auto) 0.7, Neut # (Auto) 6.3, Lymph # (Auto) 1.6, [place] # (Auto) 0.6, Eos # (Auto) 0.5 H, Baso # (Auto) 0.1, Sodium 137, Potassium 3.7, Chloride 103, Carbon Dioxide 27, Anion Gap 10.7, BUN 26 H, Creatinine 1.70 H, Estimated Creat Clear 63, Estimated GFR 39 L, Est GFR ( Amer) 48 L, Glucose 100, Calcium 8.0 L I & O for Last 24 hours: Intake & Output 05/31/24 06/01/24 06/02/24 06/03/24 23:59 23:59 23:59 23:59 Intake Total 960 / 960 1495 / 2105 2120 / 2360 860 / 860 Output Total 2900 / 2900 1650 / 1650 1850 / 1850 350 / 350 Balance -1940 / -1940 -155 / 455 270 / 510 510 / 510 Weight 124.2 kg 123 kg 121.291 kg 122.555 kg Microbiology Reports for the Last 24 Hours: Microbiology 05/30/24 14:30 Blood Blood Culture - Preliminary NO GROWTH AFTER 4 DAYS Constitutional Constitutional: no acute distress *Routine HEENT Exam Head: Present normocephalic Eye: Present EOMI and PERRL ENT: Present mucous membranes moist *Routine Neck Exam Neck: Present supple; Absent lymphadenopathy *Routine Respiratory Exam Respiratory: Present CTA bilaterally *Routine Cardiovascular Exam Cardiovascular: Present RRR *Routine Abdominal Exam Abdominal: Present soft and normoactive bowel sounds; Absent tenderness *Routine Extremities Exam Extremities: Absent cyanosis, clubbing or edema Comments: Lower extremities with chronic weeping blisters wrapped Unna boots. Edema has resolved. *Routine Skin Exam Skin: Present warm; Absent rash *Routine Neurological Exam Neurological: Present alert and oriented X3 Assessment and Plan *Assessment and plan (1) Non-ST elevation [place] (NSTEMI): Status: Acute Category: Medical Code(s): I21.4 - Non-ST elevation (NSTEMI) myocardial infarction (2) CHF (congestive heart failure): Status: Acute Category: Medical Code(s): I50.9 - Heart failure, unspecified Plan Riki Mckeon is a 78 year old male with a medical history significant for hypothyroidism and BPH presents with worsening shortness of breath of the past few days. He states hes been cough more but not productive. Denies chest pain, fevers. Workup in the ED significant for WBC 17.4, potassium 5.2, troponin 0.30- >2.57, BNP 3170. VBG unremarkable. CTA chest shows bilateral ground glass opacities. Requiring 2L, baseline none. Case discussed with ED and decision was made to admit paient for acute hypoxic respiratory failure from heart failure exacerbation and elevated troponins #NSTEMI #CAD s/p 6 stents 05/31/24 ? Uptrending trops from 0.3-7 on admission. ? Patient underwent 5 vessel stenting and reconstruction after he refused transfer for CABG. ? Patient continues to feel well, chest pain-free. Worked with physical therapy today without issues, including walking up and down the [place] with walker. Denies shortness of breath. ? Aspirin, Plavix, atorvastatin, metoprolol. ? Continues telemetry. ? Cardiology wants to keep patient inpatient over the weekend due to high risk. Will reevaluate tomorrow. ? Patient has a bed offer at [facility] on Wednesday. Anticipate discharge then. #Acute hypoxic respiratory failure # HFrEF exacerbation - Endorses several month onset of SOB, worse over the last few days prior to admission. - Has pulmonary and LE edema on admission. States his lower extremity chronic weeping blisters have worsened over the past week before admission. ? ECHO 05/30/2024 LVEF 30%, moderate to severe global hypokinesis, distal apical LV charlton akinetic. ? Edema continues to be resolved. ?Lasix 40 mg daily. Had discontinued IV Lasix 40 twice daily given euvolemia and uptrending creatinine. ? Will need LifeVest fitted. - Follow renal function, electrolytes. - A1c 6.0, lipid panel unremarkable. ? Elevated TSH 8.64, normal T4. ? GDMT with Entresto, metoprolol, Jardiance, Spironolactone. - Cardiology consulted, appreciate efforts and recommendations. They would like to repeat ECHO on Wednesday. - Wean O2 as tolerated, currently 2L. #Suspected community-acquired pneumonia ? CTA does show groundglass opacities, and there is leukocytosis which is improving 17-10 today. WBC stable at 10 today. ? Continue ceftriaxone, azithromycin for total 5 days. Day 3/5. #Physical deconditioning ? PT OT consulted, recommend SNF placement. #FRANCESCA, improving ?Creatinine improved from stable around 1.7. Baseline around 1.4 ? 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 Follows with wound care outpatient at least 2 times a week. ? Wound care consulted. ? Unna boots replaced during admission. #Hypothyroidism #BPH -Resumed home levothyroxine, tamsulosin FULL CODE Lovenox
--- NOTE | 2024-06-03 16:22 | PC.NURSE ---
AOX4, SAT UP TO CHAIR FOR MOST OF SHIFT. ;NIURKA VEST FITTED TODAY. HAS AMBULATED IN ROOM WITH WALKER AND STANDBY ASSIST.
[2024-06-03] MEDS: CEFTRIAXONE 1 GM 1 GM in 0.9 % SODIUM CHLORIDE 50 ML IV (17:56)
[2024-06-03] MEDS: TAMSULOSIN 0.4MG CAPSULE 0.8 MG PO (20:38)
[2024-06-03] MEDS: ATORVASTATIN 40MG TABLET 40 MG PO (20:39)
[2024-06-03] MEDS: AZITHROMYCIN 250MG TABLET 500 MG PO (20:39)
[2024-06-04] VITALS (7 sets, daily range): BP systolic 107–125; BP diastolic 56–75; PULSE 70–83; RESP 16–20; TEMP 36.5–37.2; O2SAT 96–99; BMI 41.2
[2024-06-04] MEDS: LEVOTHYROXINE 100MCG (0.1MG) TAB 100 MCG PO (06:34)
[2024-06-04 07:18] LABS: Basophils # 0.1 K/mm3 (0-0.2); Eosinophils # 0.6 K/mm3 (0.0-0.4); Eosinophils % 6.4 % (0.1-12.0); Hematocrit 34.7 % (42.0-52.0); Hemoglobin 11.4 g/dL (14.1-18.0); Lymphocytes # 1.7 K/mm3 (0.7-4.5); Lymphocytes % 16.5 % (10-50); Mean Corpuscular HGB Conc 32.9 g/dL (31.8-35.4); Mean Corpuscular Hemoglobin 29.2 pg (27.0-31.2); Mean Corpuscular Volume 88.8 fl (80-94); Mean Platelet Volume 6.9 fl (7.4-10.4); Monocytes # 0.8 K/mm3 (0.1-1.0); Neutrophils # 6.8 K/mm3 (1.8-7.8); Neutrophils % 68.1 % (37.0-80.0); Platelet Count 465 K/mm3 (142-424); Red Blood Count 3.91 M/mm3 (4.60-6.20); Red Cell Distribution Width 14.5 % (11.5-17.5)
[2024-06-04 07:52] LABS: Chloride 104 mmol/L (98-107); Potassium 3.9 mmoL/L (3.5-5.1); Sodium 139 mmol/L (136-145)
[2024-06-04 07:55] LABS: Anion Gap 12.9 mEq/L (5-15); Blood Urea Nitrogen 32 mg/dl (9-20); Carbon Dioxide 26 mmol/L (22.0-30.0); Creatinine Clearance Estimated 30 mL/min (50-200); Estimated Glomerular Filt Rate 33 ml/min (>60); GFR (African American) 39 ML/MIN (>60); Glucose 101 mg/dl (74-100)
[2024-06-04] MEDS: CLOPIDOGREL 75MG TAB 75 MG PO (08:42)
[2024-06-04] MEDS: FUROSEMIDE 40 MG TABLET PO (08:42)
[2024-06-04] MEDS: METOPROLOL SUCCINATE XL 25MG TABLET 25 MG PO (08:42)
[2024-06-04] MEDS: SACUBITRIL/VALSARTAN 24-26MG TABLET 1 EACH PO ×2 (08:42→20:26)
[2024-06-04] MEDS: SPIRONOLACTONE 25MG TABLET 25 MG PO (08:42)
[2024-06-04] MEDS: ASPIRIN EC 81MG TABLET 81 MG PO (08:42)
[2024-06-04] MEDS: EMPAGLIFLOZIN 10MG TABLET 10 MG PO (08:42)
[2024-06-04] MEDS: CEFTRIAXONE 1 GM 1 GM in 0.9 % SODIUM CHLORIDE 50 ML IV (17:03)
--- NOTE | 2024-06-04 17:21 | PC.NURSE ---
pt remains on room air. pt has also remained alert and oriented x4. pt is currently sitting in chair. no new orders at this time. call light within reach
[2024-06-04] MEDS: ATORVASTATIN 40MG TABLET 40 MG PO (20:26)
[2024-06-04] MEDS: AZITHROMYCIN 250MG TABLET 500 MG PO (20:26)
[2024-06-04] MEDS: TAMSULOSIN 0.4MG CAPSULE 0.8 MG PO (20:26)
--- NOTE | 2024-06-04 22:21 | EXP.PN ---
Subjective *Date: 06/04/24 *Time: 22:21 Exam Data for Last 24 hours Vital signs and Labs for Last 24 Hours: Temp Pulse Resp BP Pulse Ox O2 Del Method O2 Flow Rate 99.0 F 83 16 107/57 L 99 Room Air 3 06/04/24 20:00 06/04/24 20:00 06/04/24 20:00 06/04/24 20:00 06/04/24 20:00 06/04/24 21:00 06/03/24 18:21 Laboratory Results - last 24 hr 06/04/24 06:45: WBC 10.0, RBC 3.91 L, Hgb 11.4 L, Hct 34.7 L, MCV 88.8, MCH 29.2, MCHC 32.9, RDW 14.5, Plt Count 465 H D, MPV 6.9 L, Neut % (Auto) 68.1, Lymph % (Auto) 16.5, [place] % (Auto) 8.0, Eos % (Auto) 6.4, Baso % (Auto) 1.0, Neut # (Auto) 6.8, Lymph # (Auto) 1.7, [place] # (Auto) 0.8, Eos # (Auto) 0.6 H, Baso # (Auto) 0.1, Sodium 139, Potassium 3.9, Chloride 104, Carbon Dioxide 26, Anion Gap 12.9, BUN 32 H, Creatinine 2.00 H, Estimated Creat Clear 30, Estimated GFR 33 L, Est GFR ( Amer) 39 L, Glucose 101 H, Calcium 8.0 L I & O for Last 24 hours: Intake & Output 06/01/24 06/02/24 06/03/24 06/04/24 23:59 23:59 23:59 23:59 Intake Total 1495 / 2105 2120 / 2360 1580 / 1580 1680 / 1680 Output Total 1650 / 1650 1850 / 1850 850 / 850 700 / 700 Balance -155 / 455 270 / 510 730 / 730 980 / 980 Weight 123 kg 121.291 kg 122.555 kg 123.422 kg Microbiology Reports for the Last 24 Hours: Microbiology 05/30/24 14:30 Blood Blood Culture - Final NO GROWTH AFTER 5 DAYS Assessment and Plan *Assessment and plan (1) Non-ST elevation [place] (NSTEMI): Status: Acute Category: Medical Code(s): I21.4 - Non-ST elevation (NSTEMI) myocardial infarction (2) CHF (congestive heart failure): Status: Acute Category: Medical Code(s): I50.9 - Heart failure, unspecified Plan iRki Mckeon is a 78 year old male with a medical history significant for hypothyroidism and BPH presents with worsening shortness of breath of the past few days. He states hes been cough more but not productive. Denies chest pain, fevers. Workup in the ED significant for WBC 17.4, potassium 5.2, troponin 0.30->2.57, BNP 3170. VBG unremarkable. CTA chest shows bilateral ground glass opacities. Requiring 2L, baseline none. Case discussed with ED and decision was made to admit paient for acute hypoxic respiratory failure from heart failure exacerbation and elevated troponins #NSTEMI #CAD s/p 6 stents 05/31/24 ? Uptrending trops from 0.3-7 on admission. ? Patient underwent 5 vessel stenting and reconstruction after he refused transfer for CABG. ? Patient continues to feel well, chest pain-free. Worked with physical therapy today without issues, including walking up and down the [place] with walker. Denies shortness of breath. ? Aspirin, Plavix, atorvastatin, metoprolol. ? Continues telemetry. ? Cardiology wants to keep patient inpatient over the weekend due to high risk. Will reevaluate tomorrow. ? Patient has a bed offer at [facility] on Wednesday. Anticipate discharge then. #Acute hypoxic respiratory failure # HFrEF exacerbation - Endorses several month onset of SOB, worse over the last few days prior to admission. - Has pulmonary and LE edema on admission. States his lower extremity chronic weeping blisters have worsened over the past week before admission. ? ECHO 05/30/2024 LVEF 30%, moderate to severe global hypokinesis, distal apical LV charlton akinetic. ? Edema continues to be resolved. ?Lasix 40 mg daily. Had discontinued IV Lasix 40 twice daily given euvolemia and uptrending creatinine. ? Will need LifeVest fitted. - Follow renal function, electrolytes. - A1c 6.0, lipid panel unremarkable. ? Elevated TSH 8.64, normal T4. ? GDMT with Entresto, metoprolol, Jardiance, Spironolactone. - Cardiology consulted, appreciate efforts and recommendations. They would like to repeat ECHO on Wednesday. - Wean O2 as tolerated, currently 2L. #Suspected community-acquired pneumonia ? CTA does show groundglass opacities, and there is leukocytosis which is improving 17-10 today. WBC stable at 10 today. ? Continue ceftriaxone, azithromycin for total 5 days. Day 3/5. #Physical deconditioning ? PT OT consulted, recommend SNF placement. #FRANCESCA, improving ?Creatinine improved from stable around 1.7. Baseline around 1.4 ? 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 Follows with wound care outpatient at least 2 times a week. ? Wound care consulted. ? Unna boots replaced during admission. #Hypothyroidism #BPH -Resumed home levothyroxine, tamsulosin FULL CODE Lovenox
[2024-06-05] VITALS: BP 117/60; PULSE 79; PULSE 80; RESP 16; TEMP 37; O2SAT 98
[2024-06-05 04:00] VITALS: BP 119/58; PULSE 70; PULSE 81; RESP 18; TEMP 36.8; O2SAT 98; BMI 41.1
[2024-06-05 06:54] LABS: Basophils # 0.1 K/mm3 (0-0.2); Eosinophils # 0.6 K/mm3 (0.0-0.4); Eosinophils % 6.1 % (0.1-12.0); Hematocrit 34.1 % (42.0-52.0); Hemoglobin 11.2 g/dL (14.1-18.0); Lymphocytes # 1.6 K/mm3 (0.7-4.5); Lymphocytes % 16.5 % (10-50); Mean Corpuscular HGB Conc 32.9 g/dL (31.8-35.4); Mean Corpuscular Hemoglobin 28.6 pg (27.0-31.2); Monocytes # 0.8 K/mm3 (0.1-1.0); Neutrophils # 6.6 K/mm3 (1.8-7.8); Neutrophils % 68.4 % (37.0-80.0); Platelet Count 462 K/mm3 (142-424); Red Blood Count 3.92 M/mm3 (4.60-6.20); Red Cell Distribution Width 14.5 % (11.5-17.5); White Blood Count 9.7 K/mm3 (4.8-10.8)
[2024-06-05] MEDS: LEVOTHYROXINE 100MCG (0.1MG) TAB 100 MCG PO (06:54)
[2024-06-05 07:34] LABS: Chloride 103 mmol/L (98-107); Sodium 138 mmol/L (136-145)
[2024-06-05 07:35] LABS: Potassium 3.7 mmoL/L (3.5-5.1)
[2024-06-05 07:37] LABS: Blood Urea Nitrogen 33 mg/dl (9-20); Creatinine Clearance Estimated 29 mL/min (50-200); Estimated Glomerular Filt Rate 31 ml/min (>60); GFR (African American) 37 ML/MIN (>60)
[2024-06-05 07:38] LABS: Anion Gap 14.7 mEq/L (5-15); Calcium 7.9 mg/dl (8.4-10.2); Carbon Dioxide 24 mmol/L (22.0-30.0); Glucose 104 mg/dl (74-100)
[2024-06-05 07:52] VITALS: BP 108/51; PULSE 84; RESP 20; TEMP 36.6; O2SAT 98
[2024-06-05 08:00] VITALS: PULSE 89
--- NOTE | 2024-06-05 08:05 | CA_ITS ---
APPROVED REPORT EXAM: Limited 2D, Doppler, and color-flow Echocardiogram [employer] Operator: Cecilia Ovalle RT(R) Ht: 5 ft 8 in Wt: 270lbs BSA: 2.32 BP: 107/57 mmHg Indications: evaluate EF, edema, SOB, NSTEMI, recent cardiac stents, EF 30% echo 05/30/24, CHF. Limited echo 2D Dimensions LVEF (Angel's) 34.00 % M: 52 - 72 LV Volume 166.20 mL M: 62 - 150 LV Volume Index 71.6 mL/m2 M: 34 - 74 EF AP4 39.30 % EF AP2 27.2 % EF BP 34.0 % GL Strain -8.2 % M-Mode Dimensions RVDd 2.58 cm (0.9-2.6) LVDd 6.86 cm (3.5-5.7) LVDs 5.72 cm (3.5-5.7) IVSd 0.85 cm (0.6-1.1) PWd 0.76 cm (0.6-1.1) EF (Teich) 33.90% FS 16.60% EDV (Teich) 244.00 mL ESV (Teich) 161.30 mL Other Information Study Quality: Fair Conclusion This is a limited TTE to evaluate for LVEF. Limited windows were obtained. The left ventricle is normal in size. There is increased LV wall thickness. There is mild to moderate global hypokinesis present. There is moderate hypokinesis of the distal septal, anteroseptal, and inferoseptal LV charlton. LVEF is 40%. When directly compared to prior study from 05/30/2024, the LVEF appears to have improved post-revascularization. Electronically signed by : Florence Miller MD 06/05/2024 12:00:59
[2024-06-05] MEDS: 0.9 % SODIUM CHLORIDE 250 ML IV (08:12)
[2024-06-05] MEDS: METOPROLOL SUCCINATE XL 25MG TABLET 25 MG PO (08:13)
[2024-06-05] MEDS: ASPIRIN EC 81MG TABLET 81 MG PO (08:13)
[2024-06-05] MEDS: EMPAGLIFLOZIN 10MG TABLET 10 MG PO (08:13)
[2024-06-05] MEDS: CLOPIDOGREL 75MG TAB 75 MG PO (08:13)
--- NOTE | 2024-06-05 08:17 | EXP.PHA.PN ---
Subjective *Date: 06/05/24 *Time: 08:17 Medical Exam Vital signs and Labs for Last 24 Hours: Vital Signs Temp Pulse Pulse Resp BP Pulse Ox O2 Del Method 06/05/24 07:52 97.9 F 84 20 108/51 L 98 Room Air 06/05/24 06:48 Room Air 06/05/24 05:00 Room Air 06/05/24 04:00 70 06/05/24 04:00 98.3 F 81 18 119/58 L 98 Room Air 06/05/24 03:00 Room Air 06/05/24 01:00 Room Air 06/05/24 00:00 98.6 F 79 16 117/60 98 Room Air 06/05/24 00:00 80 06/04/24 23:00 Room Air 06/04/24 21:00 Room Air 06/04/24 20:00 80 06/04/24 20:00 Room Air 06/04/24 20:00 99.0 F 83 16 107/57 L 99 Room Air 06/04/24 18:54 Room Air 06/04/24 17:00 Room Air 06/04/24 16:00 98.1 F 80 18 108/68 L 96 Room Air 06/04/24 16:00 70 06/04/24 14:41 Room Air 06/04/24 12:56 Room Air 06/04/24 12:00 97.7 F 75 18 111/75 99 Room Air 06/04/24 12:00 70 06/04/24 10:56 Room Air 06/04/24 09:00 Room Air Intake and Output 06/04/24 06/05/24 06/05/24 23:59 07:59 15:59 Intake Total 840 / 1920 540 / 540 Output Total 300 / 700 0 / 0 Balance 540 / 1220 540 / 540 Intake: Intake, Oral Amount 840 / 1920 540 / 540 Output: Output, Urine Amount 300 / 700 0 / 0 Other: Number of Unmeasured Voids 1 Number of Bowel Movements 1 Weight 123.15 kg Patient Weight 06/05/24 23:59 Weight 123.15 kg Laboratory Results - last 24 hr 06/05/24 05:50: WBC 9.7, RBC 3.92 L, Hgb 11.2 L, Hct 34.1 L, MCV 87.0, MCH 28.6, MCHC 32.9, RDW 14.5, Plt Count 462 H, MPV 7.0 L, Neut % (Auto) 68.4, Lymph % (Auto) 16.5, [place] % (Auto) 8.0, Eos % (Auto) 6.1, Baso % (Auto) 1.0, Neut # (Auto) 6.6, Lymph # (Auto) 1.6, [place] # (Auto) 0.8, Eos # (Auto) 0.6 H, Baso # (Auto) 0.1, Sodium 138, Potassium 3.7, Chloride 103, Carbon Dioxide 24, Anion Gap 14.7, BUN 33 H, Creatinine 2.10 H, Estimated Creat Clear 29, Estimated GFR 31 L, Est GFR ( Amer) 37 L, Glucose 104 H, Calcium 7.9 L I & O for Labs for Last 24 Hours: Intake & Output 06/02/24 06/03/24 06/04/24 06/05/24 23:59 23:59 23:59 23:59 Intake Total 2120 / 2360 1580 / 1580 1680 / 1920 540 / 540 Output Total 1850 / 1850 850 / 850 700 / 700 0 / 0 Balance 270 / 510 730 / 730 980 / 1220 540 / 540 Weight 121.291 kg 122.555 kg 123.422 kg 123.15 kg Microbiology Reports for the Last 24 Hours: Microbiology 05/30/24 14:30 Blood Blood Culture - Final NO GROWTH AFTER 5 DAYS The patient's infection will respond to the chosen ABx?: Yes (BLOOD CX (05/30/24) GROWING STREP AGALACTIAE, AFEBRILE OVER 24 HR, WBC 9.7) Is the patient receiving the right drug, dose, and route?: Yes Could a more targeted ABx be ordered?: No How long ABx needed (days)?: 5
--- NOTE | 2024-06-05 09:45 | P.PN_ITS ---
Subjective Subjective Date: 06/05/24 Time: 09:45 Principal diagnosis: CAD, CM, CHF Interval history: 78-year-old white male sitting in bedside chair in no acute distress. Continues to have slight cough that is minimally productive. He relates lower extremities still with edema but improved. Exam Data for Last 24 hours Vital signs and Labs for Last 24 Hours: Temp Pulse Resp BP Pulse Ox O2 Del Method O2 Flow Rate 97.9 F 89 20 108/51 L 98 Room Air 3 06/05/24 07:52 06/05/24 08:00 06/05/24 07:52 06/05/24 07:52 06/05/24 07:52 06/05/24 08:56 06/03/24 18:21 Laboratory Results - last 24 hr 06/05/24 05:50: WBC 9.7, RBC 3.92 L, Hgb 11.2 L, Hct 34.1 L, MCV 87.0, MCH 28.6, MCHC 32.9, RDW 14.5, Plt Count 462 H, MPV 7.0 L, Neut % (Auto) 68.4, Lymph % (Auto) 16.5, Lane % (Auto) 8.0, Eos % (Auto) 6.1, Baso % (Auto) 1.0, Neut # (Auto) 6.6, Lymph # (Auto) 1.6, Lane # (Auto) 0.8, Eos # (Auto) 0.6 H, Baso # (Auto) 0.1, Sodium 138, Potassium 3.7, Chloride 103, Carbon Dioxide 24, Anion Gap 14.7, BUN 33 H, Creatinine 2.10 H, Estimated Creat Clear 29, Estimated GFR 31 L, Est GFR ( Amer) 37 L, Glucose 104 H, Calcium 7.9 L I & O for Last 24 hours: Intake & Output 06/02/24 06/03/24 06/04/24 06/05/24 11:59 11:59 11:59 11:59 Intake Total 2275 / 2275 1460 / 1460 1590 / 1590 1740 / 1740 Output Total 1125 / 1775 1600 / 1600 900 / 900 300 / 300 Balance 1150 / 500 -140 / -140 690 / 690 1440 / 1440 Weight 267 lb 6.4 oz 270 lb 3 oz 272 lb 1.6 oz 271 lb 8 oz Microbiology Reports for the Last 24 Hours: Microbiology 05/30/24 14:30 Blood Blood Culture - Final NO GROWTH AFTER 5 DAYS Constitutional Constitutional: no acute distress *Routine Respiratory Exam Respiratory: Present decreased breath sounds and crackles; Absent rhonchi or wheezes *Routine Cardiovascular Exam Cardiovascular: Present RRR; Absent murmur, gallop or rubs *Routine Extremities Exam Extremities: Present edema *Routine Neurological Exam Neurological: Present alert and oriented X3 Progress Note: A&P Assessment and plan (1) Non-ST elevation [place] (NSTEMI): Status: Acute (2) CHF (congestive heart failure): Status: Acute Assessment and Plan Assessment and Plan for All Diagnoses:: MV-CAD s/p NSTEMI and PCI 05/31/24 - peak Trop to 7.88 prior to stenting, EKG with q-waves anterior leads - C: 5 vessel stenting/reconstruction using 7 JAMIL - ECHO shows EF 30% with severely hypokinetic apex - Cont ASA, Plavix, Statin, BB HFrEF, Ischemic Cardiomyopathy/EF 30% with LVEDP of 30 mm Hg at time of C - new dx this admission with EF 30% on ECHO, ProBNP 3k, groundglass opacities on CT and NYHA = 4 symptoms - new multivessel dz noted on LHC here s/p successful stenting - LifeVest - Cont BB and SGLT-2. Hold on ARNI/MRA due to ERIBERTO and low BP Contrast Inducated Nephropathy - heavy contrast use during long [facility] 05/31 - Cr up to 2.1 today - holding entresto and lasix this AM. Will actually switch to valsartan 40 mg BID and use lasix only , and Wednesday. BLE Lymphedema - chronic, known dx - wound care bandaging legs Obesity, BMI 41 - needs aggressive weight loss via diet and exercise - consider GLP-1 as OP for CV benefit and weight loss HLD - well controlled with LDL 35 Limited Echo today shows EF 40%. Will discontinue LifeVest. Home meds: Aspirin 81 mg daily Atorvastatin 40 mg daily Plavix 75 mg daily Jardiance 10 mg daily Metoprolol succinate 25 mg daily Aldactone 25 mg daily Lasix 40 mg on , and Wednesday only. Will stop entresto and use valsartan 40 mg BID. Patient will will require close follow-up as an outpatient. Recommend seeing him back in 1 week with lab work including BMP, BNP.
[2024-06-05 12:00] VITALS: BP 125/84; PULSE 73; PULSE 82; RESP 22; TEMP 36.6; O2SAT 94
[2024-06-05 12:23] LABS: Chloride 102 mmol/L (98-107)
[2024-06-05 12:24] LABS: Sodium 137 mmol/L (136-145)
[2024-06-05 12:27] LABS: Blood Urea Nitrogen 31 mg/dl (9-20); Calcium 8.1 mg/dl (8.4-10.2); Carbon Dioxide 26 mmol/L (22.0-30.0); Creatinine Clearance Estimated 29 mL/min (50-200); Estimated Glomerular Filt Rate 31 ml/min (>60); GFR (African American) 37 ML/MIN (>60); Glucose 102 mg/dl (74-100)
--- NOTE | 2024-06-05 12:44 | EXP.DC.SUM ---
General Admission date:: 05/30/24 HPI HPI HPI: Riki Mckeon is a 78 year old male with a medical history significant for hypothyroidism and BPH presents with worsening shortness of breath of the past few days. He states hes been cough more but not productive. Denies chest pain, fevers. Workup in the ED significant for WBC 17.4, potassium 5.2, troponin 0.30->2.57, BNP 3170. VBG unremarkable. CTA chest shows bilateral ground glass opacities. Requiring 2L, baseline none. Case discussed with ED and decision was made to admit paient for acute hypoxic respiratory failure from heart failure exacerbation and elevated troponins. Hospital Course Hospital Course Hospital Course: Riki Mckeon is a 78 year old male with a medical history significant for hypothyroidism and BPH presents with worsening shortness of breath of the past few days. He states hes been cough more but not productive. Denies chest pain, fevers. Workup in the ED significant for WBC 17.4, potassium 5.2, troponin 0.30->2.57, BNP 3170. VBG unremarkable. CTA chest shows bilateral ground glass opacities. Requiring 2L, baseline none. Case discussed with ED and decision was made to admit paient for acute hypoxic respiratory failure from heart failure exacerbation and elevated troponins #NSTEMI #CAD s/p 6 stents 05/31/24 ? Uptrending trops from 0.3-7 on admission. ? Patient underwent 5 vessel stenting and reconstruction after he refused transfer for CABG. Received 7 stents. ? Patient continues to feel well, chest pain-free. Worked with physical therapy without issues, including walking up and down the [place] with walker. Denies shortness of breath. ? Discharged with aspirin 81 mg, Plavix 75 mg, atorvastatin 40 mg, metoprolol succinate 25 mg. ? Patient will need to follow-up with cardiology within the next week. #Acute hypoxic respiratory failure, resolved # HFrEF exacerbation, resolved - Endorsed several month onset of SOB, worse over the last few days prior to admission. - Had pulmonary and LE edema on admission. States his lower extremity chronic weeping blisters have worsened over the past week before admission. ? Initial ECHO 05/30/2024 LVEF 30%, moderate to severe global hypokinesis, distal apical LV charlton akinetic. ? Clinically improved with diuresis. ? Discharged with Lasix 40 mg on Wednesday, Wednesday, Wednesday only. ? LVEF has improved to 40% s/p revascularization as above. Does not need LifeVest. ? GDMT with valsartan 40 mg twice daily, metoprolol succinate 25 mg, Jardiance 10 mg, spironolactone 25 mg. ? Hold valsartan until repeat BMP shows stable or improving renal function. See below. - Cardiology consulted, appreciate efforts and recommendations. #FRANCESCA ? Creatinine plateaued at 2.1. Baseline around 1.4. ? Patient had quite a bit of contrast during PCI as above. He will need a repeat BMP in 3 days to follow renal function. #Suspected community-acquired pneumonia ? CTA does show groundglass opacities, and there is leukocytosis which is improving 17-10 today. WBC stable at 10 today. ? Improved with ceftriaxone, azithromycin. #Physical deconditioning ? PT OT consulted, recommend SNF placement. #Lower extremity weeping wounds ? Chronic. Follows with wound care outpatient at least 2 times a week. ? Wound care consulted. ? Unna boots replaced during admission. #Hypothyroidism #BPH -Resumed home levothyroxine, tamsulosin Exam Data for Last 24 hours Vital signs and Labs for Last 24 Hours: Temp Pulse Resp BP Pulse Ox O2 Del Method O2 Flow Rate 97.8 F 82 22 125/84 94 L Room Air 3 06/05/24 12:00 06/05/24 12:00 06/05/24 12:00 06/05/24 12:00 06/05/24 12:00 06/05/24 12:00 06/03/24 18:21 Laboratory Results - last 24 hr 06/05/24 05:50: WBC 9.7, RBC 3.92 L, Hgb 11.2 L, Hct 34.1 L, MCV 87.0, MCH 28.6, MCHC 32.9, RDW 14.5, Plt Count 462 H, MPV 7.0 L, Neut % (Auto) 68.4, Lymph % (Auto) 16.5, [place] % (Auto) 8.0, Eos % (Auto) 6.1, Baso % (Auto) 1.0, Neut # (Auto) 6.6, Lymph # (Auto) 1.6, [place] # (Auto) 0.8, Eos # (Auto) 0.6 H, Baso # (Auto) 0.1, Sodium 138, Potassium 3.7, Chloride 103, Carbon Dioxide 24, Anion Gap 14.7, BUN 33 H, Creatinine 2.10 H, Estimated Creat Clear 29, Estimated GFR 31 L, Est GFR ( Amer) 37 L, Glucose 104 H, Calcium 7.9 L 06/05/24 12:10: Sodium 137, Potassium 4.0, Chloride 102, Carbon Dioxide 26, Anion Gap 13.0, BUN 31 H, Creatinine 2.10 H, Estimated Creat Clear 29, Estimated GFR 31 L, Est GFR ( Amer) 37 L, Glucose 102 H, Calcium 8.1 L I & O for Last 24 hours: Intake & Output 06/02/24 06/03/24 06/04/24 06/05/24 23:59 23:59 23:59 23:59 Intake Total 2120 / 2360 1580 / 1580 1680 / 1920 660 / 660 Output Total 1850 / 1850 850 / 850 700 / 700 0 / 0 Balance 270 / 510 730 / 730 980 / 1220 660 / 660 Weight 121.291 kg 122.555 kg 123.422 kg 123.15 kg Microbiology Reports for the Last 24 Hours: Microbiology 05/30/24 14:30 Blood Blood Culture - Final NO GROWTH AFTER 5 DAYS Constitutional Constitutional: no acute distress *Routine HEENT Exam Head: Present normocephalic Eye: Present EOMI and PERRL ENT: Present mucous membranes moist *Routine Neck Exam Neck: Present supple; Absent lymphadenopathy *Routine Respiratory Exam Respiratory: Present CTA bilaterally *Routine Cardiovascular Exam Cardiovascular: Present RRR *Routine Abdominal Exam Abdominal: Present soft and normoactive bowel sounds; Absent tenderness *Routine Extremities Exam Extremities: Absent cyanosis, clubbing or edema Comments: Lower extremities with chronic weeping blisters wrapped Unna boots. Edema has resolved. *Routine Skin Exam Skin: Present warm; Absent rash *Routine Neurological Exam Neurological: Present alert and oriented X3 Results Data Completed and Pending Labs on day of discharge: Labs from last 24 hours 06/05/24 06/05/24 12:10 05:50 WBC 9.7 RBC 3.92 L Hgb 11.2 L Hct 34.1 L MCV 87.0 MCH 28.6 MCHC 32.9 RDW 14.5 Plt Count 462 H MPV 7.0 L Neut % (Auto) 68.4 Lymph % (Auto) 16.5 [place] % (Auto) 8.0 Eos % (Auto) 6.1 Baso % (Auto) 1.0 Neut # (Auto) 6.6 Lymph # (Auto) 1.6 [place] # (Auto) 0.8 Eos # (Auto) 0.6 H Baso # (Auto) 0.1 Sodium 137 138 Potassium 4.0 3.7 Chloride 102 103 Carbon Dioxide 26 24 Anion Gap 13.0 14.7 BUN 31 H 33 H Creatinine 2.10 H 2.10 H Estimated Creat Clear 29 29 Estimated GFR 31 L 31 L Est GFR ( Amer) 37 L 37 L Glucose 102 H 104 H Calcium 8.1 L 7.9 L Preliminary micro results at discharge 05/30/24 13:55 Blood Culture - Preliminary Blood Strep agalactiae - (group b) DS: Diagnosis Discharge Diagnosis (1) Non-ST elevation RI (NSTEMI): Status: Acute Code(s): I21.4 - Non-ST elevation (NSTEMI) myocardial infarction (2) CHF (congestive heart failure): Status: Acute Code(s): I50.9 - Heart failure, unspecified Meds Home Medications and Allergies Home Medications ?Medication ?Instructions ?Recorded ?Confirmed ?Type tamsulosin 0.4 mg capsule 0.8 mg PO HS PROSTATE 04/04/18 05/30/24 History levothyroxine 100 mcg tablet 50 mcg PO AM 05/30/24 05/31/24 History aspirin 81 mg tablet,delayed 81 mg PO DAILY #30 tabs 06/05/24 Rx release atorvastatin 40 mg tablet 40 mg PO HS #30 tabs 06/05/24 Rx clopidogrel 75 mg tablet 75 mg PO DAILY 30 days #30 tabs 06/05/24 Rx empagliflozin 10 mg tablet 10 mg PO DAILY #30 tabs 06/05/24 Rx (Jardiance) furosemide 40 mg tablet See Rx Instructions .Route 06/05/24 Rx .COMPLEX #30 tabs metoprolol succinate 25 mg 25 mg PO DAILY #30 tabs 06/05/24 Rx tablet,extended release 24 hr spironolactone 25 mg tablet 25 mg PO DAILY #30 tabs 06/05/24 Rx valsartan 40 mg tablet 40 mg PO BID #60 tabs 06/05/24 Rx New Prescriptions to Start Prescriptions: Eliseo Wolfe atorvastatin Gisell,Eliseo clopidogrel Eliseo Jameson empagliflozin [Jardiance] Eliseo Jameson furosemide Eliseo Jameson metoprolol succinate Eliseo Jameson spironolactone Eliseo Jameson valsartan Eliseo Jameson Allergies Allergy/AdvReac Type Severity Reaction Status Date / Time Antihistamines - Alkylamine Allergy Mild MADE SKIN Verified 02/17/24 14:17 [ANTIHISTAMINES - ALKYLAMINE] FEEL LIKE ON FIRE NSAIDS (Non-Steroidal AdvReac Severe kidney Verified 02/17/24 14:17 Anti-Inflamma failure Discharge Plan Disposition Patient Disposition: Xfer SNF Condition: Fair Discharge Order Discharge Orders: Discharge Order (Routine); Ordered 06/05/24 Ordered By: Eliseo Jameson Follow up Plan Follow up with: Jeffrey Conway MD [Staff Physician] - 06/12/24 1:45 pm (appointment with luis e ) Prescriptions/Medication Reconciliation: New furosemide 40 mg Tablet See Rx Instructions .ROUTE .COMPLEX Qty: 30 0RF Rx Instructions: 40 mg orally on Wednesday, Wednesday, Wednesday. atorvastatin 40 mg Tablet 40 mg PO HS Qty: 30 0RF clopidogrel 75 mg Tablet 75 mg PO DAILY 30 Days Qty: 30 0RF aspirin 81 mg Tablet,Delayed Release (Dr/Ec) 81 mg PO DAILY Qty: 30 0RF Jardiance 10 mg Tablet 10 mg PO DAILY Qty: 30 0RF spironolactone 25 mg Tablet 25 mg PO DAILY Qty: 30 0RF metoprolol succinate 25 mg Tablet Extended Release 24 Hr 25 mg PO DAILY Qty: 30 0RF valsartan 40 mg tablet 40 mg PO BID Qty: 60 0RF Continued tamsulosin 0.4 MG capsule 0.8 mg PO HS levothyroxine 100 mcg tablet 50 mcg PO AM Patient Comments: TAKE 1/2 (ONE-HALF) TABLET BY MOUTH ONCE DAILY Problem Reconciliation Problems Reviewed?: Yes Patient Discharge Instructions ACTIVITY: Continue current activity DIET: continue same diet Patient Instructions: DI for Heart Attack, Getting to the Heart of a Healthful Diet, The DASH Diet, DI for Heart Failure, DI for Surgical Site Infection Print Language: [place] Providers Primary Care Provider: Gasper [place] Admit Provider: Eliseo Jameson Attending Provider: Eliseo Jameson
--- NOTE | 2024-06-05 13:29 | PC.NURSE ---
report called to at [facility] @[id number] and answered all questions
== END 2024-06-05 14:04 | DRG 321 ==
LOC: ER 15:59 → 2ND 16:30
PROVIDERS: Internal Medicine; Physician Assistant; Admitting Provider Student in an Organized Health Care Education/Training Program; Emergency Provider Emergency Medicine; PCP Internal Medicine Adolescent Medicine; Visit Provider Student in an Organized Health Care Education/Training Program
PROC: 027337Z Dilation of Coronary Artery, Four or More Arteries with Four or More Drug-eluting Intraluminal Devices, Percutaneous Approach (ICD-10-PCS; principal; 2024-05-31 13:15)
DX: I21.4 Non-ST elevation (NSTEMI) myocardial infarction (principal); I50.21 Acute systolic (congestive) heart failure; R57.0 Cardiogenic shock; J96.01 Acute respiratory failure with hypoxia; J18.9 Pneumonia, unspecified organism; Z68.41 Body mass index [BMI] 40.0-44.9, adult; N17.9 Acute kidney failure, unspecified; L97.228 Non-pressure chronic ulcer of left calf with other specified severity; L97.218 Non-pressure chronic ulcer of right calf with other specified severity; I11.0 Hypertensive heart disease with heart failure; I89.0 Lymphedema, not elsewhere classified; E66.01 Morbid (severe) obesity due to excess calories; I77.1 Stricture of artery; I25.5 Ischemic cardiomyopathy; E03.9 Hypothyroidism, unspecified; E78.5 Hyperlipidemia, unspecified; N14.11 Contrast-induced nephropathy; T50.8X5A Adverse effect of diagnostic agents, initial encounter; I25.10 Atherosclerotic heart disease of native coronary artery without angina pectoris; I70.242 Atherosclerosis of native arteries of left leg with ulceration of calf; I70.232 Atherosclerosis of native arteries of right leg with ulceration of calf
CPT/HCPCS: 36415; 71045; 71275; 80048; 80053; 80061; 82803; 82962; 83036; 83605; 83880; 84439; 84443; 84484; 85007; 85025; 85027; 85347; 85730; 86803; 87040; 87077; 87081; 87186; 87265; 87389; 87486; 87581; 87632; 87635; 92928; 92929; 93005; 93308; 93458; 97110; 97116; 97162; 97165; 97530; 99152; 99153; 99285; C1725; C1760; C1769; C1874; C9600; C9601; J0456; J0696; J1200; J1644; J1650; J1940; J2250; J3010; J7050; Q9957; Q9967

== ENCOUNTER 2024-08-02 15:00 | Outpatient (RCR) | payer MEDICARE, OTHER, SELFPAY ==
--- NOTE | 2020-01-29 15:25 | HMH.PTOPWND ---
Rehab Outpt Wound Evaluation Rehab OP Wound Evaluation Start: 01/29/20 15:16 Freq: Status: Active Protocol: Document 01/29/20 15:16 PAWAN (Rec: 01/29/20 15:25 PHORNE [id number]) Electronically Signed By Jarad Gomes, PT 01/29/20 15:16 Subjective/History History History Pt is 74 yowm who presents with significant edema and weeping, open sores to B lower legs after hospitalization for cellulitis. 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 He has hx of prior L hip replacement due to OA and B LE vascular procedure to improve circulation. He reports no c/ o pain this date and no current discomfort. Subjective Subjective No pain at this time, only mild tenderness with dressing removal to B lower legs. Lymphedema Eval Classification of Lymphedema Secondary Lymphedema Yes: CVI Stemmer's sign Stemmer's Sign yes Stage of Lymphedema Lymphedema stages Stage II (Pitting edema, increased fibrosis w/ decreased pitting) Skin Changes Dry Skin Yes Redness Yes Blisters Yes Wounds Yes: R med & lat mal,L lat mal Discoloration of Skin Yes: hemosiderin staining Other Changes Yes Affected Extremities Areas Affected by Lymphedema/Edema Right Lower Extremity,Left Lower Extremity Manual Lymphatic Drainage Treatment Area MLD Treatment Area Right Lower Extremity,Left Lower Extremity Wound Problems/Impairments Impairments Problems/Impairmments Palpation Tenderness,Impaired Gait Pattern,Impaired Walking, Impaired Standing,Increased Edema,Lymphedema Present,Wound Care Needs,Subjective C/O Pain,Impaired Self Care/Self Management Prognosis Rehab Potential Fair Clinical Impression Consistent with Diagnosis Yes Short Term Goals Number of Weeks 4 Decreased Palpation Tenderness Yes: to min Decrease Wound Area Yes: by 25% Decrease Drainage Yes: by 25% Patient to Understand Lymphedema Yes Treatment and Exercises Nursing Home Goals Number of Weeks 8 Decreased Palpation Tenderness Yes: to none Decrease Wound Area Yes: by 75% Decrease Drainage Yes: by 100% Patient to be Ind w/ HEP Yes Patient to be Ind w/ Donning/Enoree Yes Compression Garments Patient to Adhere Lymphedema Precautions Yes Outpatient Therapy Plan of Care Treatment Plan May Include Therapeutic Exercise Including Home Yes Exercise Program Manual Therapy Techniques Yes Neuromuscular Re-education Yes Therapeutic Activities to Return to Yes Previous Functional/Work Level Orthotics/Bracing/Splinting Yes Vasopneumatic Compression Pump Yes Massage Yes Wound Care Yes Eval/Re-Eval Yes Frequency Times per week 2 Duration Number of Weeks 8 Addendums This patient is a candidate for social Yes or vocational rehab? Patient/Guardian verbally acknowledges Yes understanding of treatment program and consents to further treatment? Patient/Guardian verbally acknowledges Yes understanding of diagnosis, prognosis and goals for treatment? G -code Required No Eval Complexity PT Charges 17959 - High Complexity PHYSICIAN CERTIFICATION: I certify the specified therapy services for Riki Mckeon are required, authorized, and reviewed every 30 days.
--- NOTE | 2020-02-29 14:44 | HMH.RHREAS ---
Rehab Reassessment Rehab OP Re-assessment Start: 02/29/20 14:39 Freq: Status: Active Protocol: Document 02/29/20 14:40 PAWAN (Rec: 02/29/20 14:44 PAWAN [id number]) Electronically Signed By Jarad Gomes, PT 02/29/20 14:40 Rehab Re-assessment Subjective Subjective Pt reports he feels a little better overall. Objective Objective Notes B LE cellulitis with CVI: Increased drainage last treatment session, but maceration of B lower legs remains stable. B LE continues to have multiple open sores, superficial depth. Pitting edema noted. Assessment Progress Assessment Progressing as Expected Assessment Notes Continues to show increased purulent drainage, but pt is taking oral abx now and symptoms seem to be slowly improving. Patient goals met none Goals Not Met ST,2,3,4 LT,2,3,4,5 ,6 Revised Goals none Plan Plan Continue per initial POC Frequency of Therapy 2 x/wk Duration of therapy 8 wks Time and Billing Re-Eval Time 15 Re-Eval Billing Units 1 PHYSICIAN CERTIFICATION: I certify the specified therapy services for Riki Mckeon are required, authorized, and reviewed every 30 days.
--- NOTE | 2020-04-01 15:42 | HMH.RHREAS ---
Rehab Reassessment Rehab OP Re-assessment Start: 02/29/20 14:39 Freq: Status: Active Protocol: Document 04/01/20 15:39 PAWAN (Rec: 04/01/20 15:42 PHOHALEY [id number]) Electronically Signed By Jarad Gomes, PT 04/01/20 15:39 Rehab Re-assessment Subjective Subjective Pt reports he has much less pain and sorness, but continued weeping. Objective Objective Notes B LE continue to present with copious purulent drainage from several areas, worst in medial R ankle. Less overall area of open sores noted. Assessment Progress Assessment Progressing as Expected Assessment Notes Continued purulent drainage, especially from medial R ankle . B LE wounds decreasing in size. Patient goals met none Goals Not Met ST,2,3,4 LT,2,3,4,5 ,6 Revised Goals none Plan Plan Continue per initial POC Frequency of Therapy 2 x/wk Duration of therapy 8 wks Time and Billing Re-Eval Time 15 Re-Eval Billing Units 1 PHYSICIAN CERTIFICATION: I certify the specified therapy services for Riki Mckeon are required, authorized, and reviewed every 30 days.
--- NOTE | 2020-04-29 16:08 | HMH.RHREAS ---
Rehab Reassessment Rehab OP Re-assessment Start: 02/29/20 14:39 Freq: Status: Active Protocol: Document 04/29/20 16:04 PAWAN (Rec: 04/29/20 16:07 PAWAN [id number]) Electronically Signed By Jarad Gomes, PT 04/29/20 16:04 Rehab Re-assessment Subjective Subjective Pt reports, I had another spell today of not feeling good and I went back to the doctor before I came here. Objective Objective Notes Pt with decreased drainage this date than the last 3 previous treatments. Some epithelialization noted in open arease around B ankles. B ankle wounds approximate size: R med ankle: L= 10.0 cm, W= 11 .0 cm L lateral/med ankle: L= 12.0 cm, W= 15.0 cm Assessment Progress Assessment Progressing as Expected Assessment Notes Continued drainage, buit only serous in nature, no purulence noted. Some epithelial tissue noted in the open areas as above. Patient goals met none Goals Not Met ST,2,3,4 LT,2,3,4,5 ,6 Revised Goals none Plan Plan Continue per initial POC Frequency of Therapy 3 x/wk Duration of therapy 8 wks Time and Billing Re-Eval Time 15 Re-Eval Billing Units 1 PHYSICIAN CERTIFICATION: I certify the specified therapy services for Riki Mckeon are required, authorized, and reviewed every 30 days.
--- NOTE | 2020-06-14 16:09 | HMH.RHREAS ---
Rehab Reassessment Rehab OP Re-assessment Start: 02/29/20 14:39 Freq: Status: Active Protocol: Document 06/14/20 16:04 PAWAN (Rec: 06/14/20 16:06 PAWAN [id number]) Electronically Signed By Jarad Gomes, PT 06/14/20 16:04 Rehab Re-assessment Subjective Subjective Pt with some c/o mild itching and irritation. Objective Objective Notes L lateral ankle wound remains raw with copious serosanguineous drainage. L= 11.0 cm, W= 12.0 cm. Assessment Progress Assessment Slower Than Expected Assessment Notes increased size of lateral ankle wound with more drainage noted, but R LE appears healed. Patient goals met none Goals Not Met ST,2,3,4 LT,2,3,4,5 ,6 Revised Goals none Plan Plan Continue per initial POC Frequency of Therapy 3 x/wk Duration of therapy 8 wks Time and Billing Re-Eval Time 15 Re-Eval Billing Units 1 PHYSICIAN CERTIFICATION: I certify the specified therapy services for Riki Mckeon are required, authorized, and reviewed every 30 days.
--- NOTE | 2020-08-09 14:59 | HMH.RHREAS ---
Rehab Reassessment Rehab OP Re-assessment Start: 02/29/20 14:39 Freq: Status: Active Protocol: Document 08/09/20 14:56 PAWAN (Rec: 08/09/20 14:58 PAAWN [id number]) Electronically Signed By Jarad Gomes, PT 08/09/20 14:56 Rehab Re-assessment Subjective Subjective Pt reports he feels his medications are helping his leg heel now. Objective Objective Notes L lateral ankle wound: L= 8.0 cm, W= 10.0 cm. remains superficial, but macerated. Wound borders are indistinct. Assessment Progress Assessment Slower Than Expected Assessment Notes Less drainage ntoed at this time, wounds are healing steadily. Edema much better controlled. Patient goals met ST,2,3,4 Goals Not Met LT,2,3,4,5,6 Revised Goals none Plan Plan Continue per initial POC Frequency of Therapy 3 x/wk Duration of therapy 8 wks Time and Billing Re-Eval Time 15 Re-Eval Billing Units 1 PHYSICIAN CERTIFICATION: I certify the specified therapy services for Riki Mckeon are required, authorized, and reviewed every 30 days.
--- NOTE | 2020-09-13 15:40 | HMH.RHREAS ---
Rehab Reassessment Rehab OP Re-assessment Start: 02/29/20 14:39 Freq: Status: Active Protocol: Document 09/13/20 15:35 PAWAN (Rec: 09/13/20 15:40 PHOHALEY [id number]) Electronically Signed By Jarad Gomes, PT 09/13/20 15:35 Rehab Re-assessment Subjective Subjective Pt reports he was off his feet a considerable amount over the past 10-12 days due to feelin gvery poorly after dx'd with COVID-19. Objective Objective Notes L lateral ankle wound: L= 2.5 cm, W= 2.5 cm. L LE edema 1+ pitting currently. Serous drainage now MIN due to compliance with elevating his feet. Assessment Progress Assessment Progressing as Expected Assessment Notes Less drainage ntoed at this time, wounds are healing steadily. L LE much better this date with only small lateral wound as noted above. Medial L ankle is much improved. Edema much better controlled. Patient goals met ST,2,3,4 Goals Not Met LT,2,3,4,5,6 Revised Goals none Plan Plan Continue per initial POC Frequency of Therapy 3 x/wk Duration of therapy 8 wks Time and Billing Re-Eval Time 15 Re-Eval Billing Units 1 PHYSICIAN CERTIFICATION: I certify the specified therapy services for Riki Mckeon are required, authorized, and reviewed every 30 days.
--- NOTE | 2020-10-18 09:44 | HMH.RHREAS ---
Rehab Reassessment Rehab OP Re-assessment Start: 02/29/20 14:39 Freq: Status: Active Protocol: Document 10/18/20 09:42 PAWAN (Rec: 10/18/20 09:44 PAWAN [id number]) Electronically Signed By Jarad Gomes, PT 10/18/20 09:42 Rehab Re-assessment Subjective Subjective Pt c/o mild tenderness/ irritation on lateral L foot at the inferior alok of his wound. Objective Objective Notes Drainage remains dark yellow to green in color this date. L lateral ankle wound: L= 10.0 cm, W= 7.0 cm. Macerated skin surrounding the wound perimeter. Assessment Progress Assessment Progressing as Expected Assessment Notes R LE continues to be wound free currently. L lateral ankle wound with continued drainage, but slightly less than the past 2-3 treatments. Patient goals met ST,2,3,4 Goals Not Met LT,2,3,4,5,6 Revised Goals none Plan Plan Continue per initial POC Frequency of Therapy 3 x/wk Duration of therapy 8 wks Time and Billing Re-Eval Time 15 Re-Eval Billing Units 1 PHYSICIAN CERTIFICATION: I certify the specified therapy services for Riki Mckeon are required, authorized, and reviewed every 30 days.
--- NOTE | 2020-11-22 14:58 | HMH.RHREAS ---
Rehab Reassessment Rehab OP Re-assessment Start: 02/29/20 14:39 Freq: Status: Active Protocol: Document 11/22/20 14:55 PAWAN (Rec: 11/22/20 14:58 PAWAN [id number]) Electronically Signed By Jarad Gomes, PT 11/22/20 14:55 Rehab Re-assessment Subjective Subjective Pt reports no new c/o discomfort on the L LE. He is taking IV abx via PICC line currently. Objective Objective Notes L ankle wound: Length 14.0 cm, Width 20.0 cm. Superficial wound depth. Assessment Progress Assessment Progressing as Expected Assessment Notes Pt with less drainage noted this date, although overall drainafge amount remains large . Pt also with less purulent appearance to drainage. Wound bed appears less irritated and some epithelialization is occuring at wound borders. Patient goals met ST,2,3,4 Goals Not Met LT,2,3,4,5,6 Revised Goals none Plan Plan Continue per initial POC Frequency of Therapy 3 x/wk Duration of therapy 8 wks Time and Billing Re-Eval Time 15 Re-Eval Billing Units 1 PHYSICIAN CERTIFICATION: I certify the specified therapy services for Riki Mckeon are required, authorized, and reviewed every 30 days.
--- NOTE | 2020-12-23 15:36 | HMH.RHREAS ---
Rehab Reassessment Rehab OP Re-assessment Start: 02/29/20 14:39 Freq: Status: Active Protocol: Document 12/23/20 15:32 PAWAN (Rec: 12/23/20 15:36 PAWAN [id number]) Electronically Signed By Jarad Gomes, PT 12/23/20 15:32 Rehab Re-assessment Subjective Subjective Pt reports no new c/o pain, he is again taking abiotic treatments for worsening L LE drainage and purulence. Objective Objective Notes L ankle wound: L= 14.0 cm, W= 23.0 cm. 50% macerated skin, 50% healthy wound bed superficial to partial thickness. Assessment Progress Assessment Slower Than Expected Assessment Notes Pt had been improving steadily over time, but then had a setback over the past 1-2 wks with increased purulent drainage and significant increase in open wound area. Continues to have copious amts of drainage from the L LE despite all treatment efforts to this date. Patient goals met ST,2,3,4 Goals Not Met LT,2,3,4,5,6 Revised Goals none Plan Plan Continue per initial POC Frequency of Therapy 3 x/wk Duration of therapy 8 wks Time and Billing Re-Eval Time 15 Re-Eval Billing Units 0 PHYSICIAN CERTIFICATION: I certify the specified therapy services for Riki Mckeon are required, authorized, and reviewed every 30 days.
--- NOTE | 2021-01-20 15:28 | HMH.RHREAS ---
Rehab Reassessment Rehab OP Re-assessment Start: 02/29/20 14:39 Freq: Status: Active Protocol: Document 01/20/21 15:25 PAWAN (Rec: 01/20/21 15:28 PAWAN [id number]) Electronically Signed By Jarad Gomes, PT 01/20/21 15:25 Rehab Re-assessment Subjective Subjective Pt reports no new c/o pain, but continues to have difficulty with drainage and edema. Objective Objective Notes L Lateral ankle wound: L= 12.0 cm, W= 9.3 cm L Medial ankle wound: L= 5.0 cm, W= 3.0 cm. Dsg removed, wound cleansed with Hibiclens pat dry with 4x4 gauze pads. Decreased maceration today slightly. Betadine applied to wound and between the great toe and second toe secondary to maceration and peeling skin. Assessment Progress Assessment Slower Than Expected Assessment Notes L ankle contineus to have large amounts of drainage from wounds with resulting luis angel- wound skin maceration despite all best efforts. Patient goals met ST,2,3,4 Goals Not Met LT,2,3,4,5,6 Revised Goals none Plan Plan Continue per initial POC Frequency of Therapy 3 x/wk Duration of therapy 8 wks Time and Billing Re-Eval Time 15 Re-Eval Billing Units 0 PHYSICIAN CERTIFICATION: I certify the specified therapy services for Riki Mckeon are required, authorized, and reviewed every 30 days.
--- NOTE | 2021-02-14 15:50 | HMH.RHREAS ---
Rehab Reassessment Rehab OP Re-assessment Start: 02/29/20 14:39 Freq: Status: Active Protocol: Document 02/14/21 15:46 PAWAN (Rec: 02/14/21 15:50 PAWAN [id number]) Electronically Signed By Jarad Gomes, PT 02/14/21 15:46 Rehab Re-assessment Subjective Subjective Pt reports no new c/o pain, but does have pain intermittently in the L lower leg and foot. Objective Objective Notes L ankle wound: L= 10.0 cm, W= 20.0 cm. Moderate maceration noted with copious serous drainage. Assessment Progress Assessment Slower Than Expected Assessment Notes Pt had improved for several weeks, but has again shown increased drainage and maceration. Overall wound size has increased, but wound remains mostly superficial. Patient goals met ST,2,3,4 Goals Not Met LT,2,3,4,5,6 Revised Goals none Plan Plan Continue per initial POC Frequency of Therapy 3 x/wk Duration of therapy 8 wks Time and Billing Re-Eval Time 15 Re-Eval Billing Units 0 PHYSICIAN CERTIFICATION: I certify the specified therapy services for Riki Mckeon are required, authorized, and reviewed every 30 days.
--- NOTE | 2021-03-12 16:12 | HMH.RHREAS ---
Rehab Reassessment Rehab OP Re-assessment Start: 02/29/20 14:39 Freq: Status: Active Protocol: Document 03/12/21 16:06 PAWAN (Rec: 03/12/21 16:10 PAWAN [id number]) Electronically Signed By Jarad Gomes, PT 03/12/21 16:06 Rehab Re-assessment Subjective Subjective Pt reports, My foot hurts most of the time, but its not terrible. I've jusy got to work, I've got too many people that depend on me. Objective Objective Notes L lateral ankle wound: L= 10.0 cm, W=8.9 cm. L medial ankle wound: L= 5.0 cm, W= 4.2 cm. Assessment Progress Assessment Slower Than Expected Assessment Notes Pt was improving for ~ 2 wks, but has again seen increased drainage and maceration in the luis angel-wound area. He improved most likely due to the fact that he was ill and could not go to work. Upon his return to work, his L LE wounds worsened. Patient goals met ST,2,3,4 Goals Not Met LT,2,3,4,5,6 Revised Goals none Plan Plan Continue per initial POC Frequency of Therapy 3 x/wk Duration of therapy 8 wks Time and Billing Re-Eval Time 15 Re-Eval Billing Units 0 PHYSICIAN CERTIFICATION: I certify the specified therapy services for Riki Mckeon are required, authorized, and reviewed every 30 days.
--- NOTE | 2021-04-18 15:33 | HMH.RHREAS ---
Rehab Reassessment Rehab OP Re-assessment Start: 02/29/20 14:39 Freq: Status: Active Protocol: Document 04/18/21 15:31 PAWAN (Rec: 04/18/21 15:32 PAWAN [id number]) Electronically Signed By Jarad Gomes, PT 04/18/21 15:31 Rehab Re-assessment Subjective Subjective Pt reports, My leg doesn't hurt as much as it did. Objective Objective Notes L Lateral ankle wound: L= 2.0 cm, W= 4.5 cm. Assessment Progress Assessment Progressing as Expected Assessment Notes Decreased drainage this date, but mild maceration of luis angel- wound skin remains. Wounds healing steadily. Patient goals met ST,2,3,4 Goals Not Met LT,2,3,4,5,6 Revised Goals none Plan Plan Continue per initial POC Frequency of Therapy 3 x/wk Duration of therapy 8 wks Time and Billing Re-Eval Time 15 Re-Eval Billing Units 0 PHYSICIAN CERTIFICATION: I certify the specified therapy services for Riki Mckeon are required, authorized, and reviewed every 30 days.
--- NOTE | 2021-06-11 15:32 | HMH.RHREAS ---
Rehab Reassessment Rehab OP Re-assessment Start: 02/29/20 14:39 Freq: Status: Active Protocol: Document 06/11/21 15:30 PAWAN (Rec: 06/11/21 15:32 PHOHALEY [id number]) Electronically Signed By Jarad Gomes, PT 06/11/21 15:30 Rehab Re-assessment Subjective Subjective No new complaints, Reports less soreness on the L lower leg today. Objective Objective Notes L lateral ankle wound: L= 3.0 cm, W= 3.0 cm, D= 0.2 cm. Drainage moderate to large, green in color. Assessment Progress Assessment Progressing as Expected Assessment Notes Continues to improve with the use of therahoney gel on wound bed with unna boot secondary. Drainage this date somewhat green in color, will continue to monitor. Less drainage overall this date. Patient goals met ST,2,3,4 Goals Not Met LT,2,3,4,5,6 Revised Goals none Plan Plan Continue per initial POC Frequency of Therapy 3 x/wk Duration of therapy 8 wks Time and Billing Re-Eval Time 15 Re-Eval Billing Units 0 PHYSICIAN CERTIFICATION: I certify the specified therapy services for Riki Mckeon are required, authorized, and reviewed every 30 days.
--- NOTE | 2021-08-04 15:25 | HMH.RHREAS ---
Rehab Reassessment Rehab OP Re-assessment Start: 02/29/20 14:39 Freq: Status: Active Protocol: Document 08/04/21 15:21 PAWAN (Rec: 08/04/21 15:25 PHOHALEY [id number]) Electronically Signed By Jarad Gomes, PT 08/04/21 15:21 Rehab Re-assessment Subjective Subjective Pt reports, My leg doesn't feel to bad. It hurts when we first wrap it back up, but otherwise its ok. Objective Objective Notes Multiple L Lower leg wounds Lateral ankle: L= 10.0 cm, W= 8.0 cm Medial ankle: L= 5.0 cm, W= 5. 0 cm Anterior rivera: L= 4.0 cm, W= 6 .0 cm Assessment Progress Assessment Slower Than Expected Assessment Notes Pt continues to present with copious drainage despite all efforts to control it. He has new onset wounds to the medial L ankle and anterior L rivera. Wound appear clean at this time, but border are macerated . Patient goals met ST,2,3,4 Goals Not Met LT,2,3,4,5,6 Revised Goals none Plan Plan Continue per initial POC Frequency of Therapy 3 x/wk Duration of therapy 8 wks Time and Billing Re-Eval Time 15 Re-Eval Billing Units 0 PHYSICIAN CERTIFICATION: I certify the specified therapy services for Riki Mckeon are required, authorized, and reviewed every 30 days.
--- NOTE | 2021-09-11 14:12 | HMH.RHREAS ---
Rehab Reassessment Rehab OP Re-assessment Start: 02/29/20 14:39 Freq: Status: Active Protocol: Document 09/11/21 14:10 PAWAN (Rec: 09/11/21 14:12 PAWAN [id number]) Electronically Signed By Jarad Gomes, PT 09/11/21 14:10 Rehab Re-assessment Subjective Subjective I've been in the hospital Objective Objective Notes Pt with much less open sores this date, extensive dry skin noted to L lower leg. L lateral ankle wound: L= 2.0 cm, W= 2.0 cm. Assessment Progress Assessment Progressing as Expected Assessment Notes Significant change from last reassessment as he presents with much less drainage from the L LE and all wounds appear healthy and are healing steadily at this time. Patient goals met ST,2,3,4 Goals Not Met LT,2,3,4,5,6 Revised Goals none Plan Plan Continue per initial POC Frequency of Therapy 3 x/wk Duration of therapy 8 wks Time and Billing Re-Eval Time 15 Re-Eval Billing Units 1 PHYSICIAN CERTIFICATION: I certify the specified therapy services for Riki Mckeon are required, authorized, and reviewed every 30 days.
--- NOTE | 2021-10-10 16:32 | HMH.RHREAS ---
Rehab Reassessment Rehab OP Re-assessment Start: 02/29/20 14:39 Freq: Status: Active Protocol: Document 10/10/21 16:30 PAWAN (Rec: 10/10/21 16:32 PHOHALEY [id number]) Electronically Signed By Jarad Gomes, PT 10/10/21 16:30 Rehab Re-assessment Subjective Subjective I feel better than I did last week. Objective Objective Notes L LE with multiple open sores to the lower leg, supierficial in nature. Increased serous drainage. Assessment Progress Assessment Progressing as Expected Assessment Notes Significant change from last reassessment as he presents with much increased drainage from the L LE. Currently all wounds appear healthy and are healing steadily at this time, but are much larger than previous. Patient goals met ST,2,3,4 Goals Not Met LT,2,3,4,5,6 Revised Goals none Plan Plan Continue per initial POC Frequency of Therapy 3 x/wk Duration of therapy 8 wks Time and Billing Re-Eval Time 15 Re-Eval Billing Units 1 PHYSICIAN CERTIFICATION: I certify the specified therapy services for Riki Mckeon are required, authorized, and reviewed every 30 days.
--- NOTE | 2021-11-05 16:19 | HMH.RHREAS ---
Rehab Reassessment Rehab OP Re-assessment Start: 02/29/20 14:39 Freq: Status: Active Protocol: Document 11/05/21 16:16 PAWAN (Rec: 11/05/21 16:19 PAWAN [id number]) Electronically Signed By Jarad Gomes, PT 11/05/21 16:16 Rehab Re-assessment Subjective Subjective Pt reports he feels tired, but not abnormally so. Objective Objective Notes Continued wounds with significant drainage noted to L lower leg. Wound size: ~ 8.0 cm x 8.0 cm maceration and indistinct wound perimeter make accurate measurments difficult. Assessment Progress Assessment Slower Than Expected Assessment Notes Continues to have large amts of drainage from L LE wounds with some decrease in maceration of the luis angel-wound skin this date. Patient goals met ST,2,3,4 Goals Not Met LT,2,3,4,5,6 Revised Goals none Plan Plan Continue per initial POC Frequency of Therapy 3 x/wk Duration of therapy 8 wks Time and Billing Re-Eval Time 15 Re-Eval Billing Units 1 PHYSICIAN CERTIFICATION: I certify the specified therapy services for Riki Mckeon are required, authorized, and reviewed every 30 days.
--- NOTE | 2021-12-03 15:51 | HMH.PTOPWND ---
Rehab Outpt Wound Evaluation Rehab OP Wound Evaluation Start: 01/29/20 15:16 Freq: Status: Active Protocol: Document 01/29/20 15:16 PAWAN (Rec: 01/29/20 15:25 PHORNE [id number]) Electronically Signed By Jarad Gomes, PT 01/29/20 15:16 Subjective/History History History Pt is 74 yowm who presents with significant edema and weeping, open sores to B lower legs after hospitalization for cellulitis. 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 He has hx of prior L hip replacement due to OA and B LE vascular procedure to improve circulation. He reports no c/ o pain this date and no current discomfort. Subjective Subjective No pain at this time, only mild tenderness with dressing removal to B lower legs. Lymphedema Eval Classification of Lymphedema Secondary Lymphedema Yes: CVI Stemmer's sign Stemmer's Sign yes Stage of Lymphedema Lymphedema stages Stage II (Pitting edema, increased fibrosis w/ decreased pitting) Skin Changes Dry Skin Yes Redness Yes Blisters Yes Wounds Yes: R med & lat mal,L lat mal Discoloration of Skin Yes: hemosiderin staining Other Changes Yes Affected Extremities Areas Affected by Lymphedema/Edema Right Lower Extremity,Left Lower Extremity Manual Lymphatic Drainage Treatment Area MLD Treatment Area Right Lower Extremity,Left Lower Extremity Wound Problems/Impairments Impairments Problems/Impairmments Palpation Tenderness,Impaired Gait Pattern,Impaired Walking, Impaired Standing,Increased Edema,Lymphedema Present,Wound Care Needs,Subjective C/O Pain,Impaired Self Care/Self Management Prognosis Rehab Potential Fair Clinical Impression Consistent with Diagnosis Yes Short Term Goals Number of Weeks 4 Decreased Palpation Tenderness Yes: to min Decrease Wound Area Yes: by 25% Decrease Drainage Yes: by 25% Patient to Understand Lymphedema Yes Treatment and Exercises [facility] Goals Number of Weeks 8 Decreased Palpation Tenderness Yes: to none Decrease Wound Area Yes: by 75% Decrease Drainage Yes: by 100% Patient to be Ind w/ HEP Yes Patient to be Ind w/ Donning/[place] Yes Compression Garments Patient to Adhere Lymphedema Precautions Yes Outpatient Therapy Plan of Care Treatment Plan May Include Therapeutic Exercise Including Home Yes Exercise Program Manual Therapy Techniques Yes Neuromuscular Re-education Yes Therapeutic Activities to Return to Yes Previous Functional/Work Level Orthotics/Bracing/Splinting Yes Vasopneumatic Compression Pump Yes Massage Yes Wound Care Yes Eval/Re-Eval Yes Frequency Times per week 2 Duration Number of Weeks 8 Addendums This patient is a candidate for social Yes or vocational rehab? Patient/Guardian verbally acknowledges Yes understanding of treatment program and consents to further treatment? Patient/Guardian verbally acknowledges Yes understanding of diagnosis, prognosis and goals for treatment? G -code Required No Eval Complexity PT Charges 78293 - High Complexity PHYSICIAN CERTIFICATION: I certify the specified therapy services for Riki Mckeon are required, authorized, and reviewed every 30 days.
--- NOTE | 2021-12-31 15:51 | HMH.RHREAS ---
Rehab Reassessment Rehab OP Re-assessment Start: 02/29/20 14:39 Freq: Status: Active Protocol: Document 12/31/21 15:48 PAWAN (Rec: 12/31/21 15:51 PAWAN [id number]) Electronically Signed By Jarad Gomes, PT 12/31/21 15:48 Rehab Re-assessment Subjective Subjective Pt continues to report no increased pain or discomfort. It feels abotu the same as it did. Objective Objective Notes L Lateral anterior wound: L= 8 .0 cm, W= 5.0 cm. Copious serous drainage. Assessment Progress Assessment Progressing as Expected Assessment Notes Pt has significant change this date with increased serous drainage noted to L LE. Wounds appear to be less macerated this date, but continue to fluctuate in size. More superficial wounds at this time. Patient goals met ST,2,3,4 Goals Not Met LT,2,3,4,5,6 Revised Goals none Plan Plan Continue per initial POC Frequency of Therapy 3 x/wk Duration of therapy 8 wks Time and Billing Re-Eval Time 15 Re-Eval Billing Units 1 PHYSICIAN CERTIFICATION: I certify the specified therapy services for Riki Mckeon are required, authorized, and reviewed every 30 days.
--- NOTE | 2022-01-27 15:49 | HMH.RHREAS ---
Rehab Reassessment Rehab OP Re-assessment Start: 02/29/20 14:39 Freq: Status: Active Protocol: Document 01/27/22 15:46 PAWAN (Rec: 01/27/22 15:49 PAWAN [id number]) Electronically Signed By Jarad Gomes, PT 01/27/22 15:46 Rehab Re-assessment Subjective Subjective Pt reports he feels good, continues to feel his endurance is lower than pre- COVID infection status though. Objective Objective Notes L Lateral anterior wound: L= 6 .7 cm, W= 4.4 cm. Large amts of serous drainage. Minimal maceration. Assessment Progress Assessment Progressing as Expected Assessment Notes He has shown significant changes at this time in regards to wound size decreased and drainage decreased. He has less pitting edema as well. Continues to have open wounds to L Lateral ankle though. Patient goals met ST,2,3,4 Goals Not Met LT,2,3,4,5,6 Revised Goals none Plan Plan Continue per initial POC Frequency of Therapy 3 x/wk Duration of therapy 8 wks Time and Billing Re-Eval Time 13 Re-Eval Billing Units 1 PHYSICIAN CERTIFICATION: I certify the specified therapy services for Riki Mckeon are required, authorized, and reviewed every 30 days.
--- NOTE | 2022-02-25 15:56 | HMH.RHREAS ---
Rehab Reassessment Rehab OP Re-assessment Start: 02/29/20 14:39 Freq: Status: Active Protocol: Document 02/25/22 15:53 PAWAN (Rec: 02/25/22 15:56 PAWAN [id number]) Electronically Signed By Jarad Gomes, PT 02/25/22 15:53 Rehab Re-assessment Subjective Subjective Pt reports no c/o pain today and he feels abou tthe same. Continues to maintain compression at home. Objective Objective Notes L Lateral anterior wound: L= 6 .5 cm, W= 4.4 cm. Large amts of serous drainage. Minimal maceration. Assessment Progress Assessment Slower Than Expected Assessment Notes Pt continues to have copious drainage from B LE despite all treatments and consistent compression therapy. Minimal changes to wounds noted after the past month and drainage remains at same levels. Continued maceration around L toes 1-3. Patient goals met ST,2,3,4 Goals Not Met LT,2,3,4,5,6 Revised Goals none Plan Plan Continue per initial POC Frequency of Therapy 3 x/wk Duration of therapy 8 wks Time and Billing Re-Eval Time 14 Re-Eval Billing Units 1 PHYSICIAN CERTIFICATION: I certify the specified therapy services for Riki Mckeon are required, authorized, and reviewed every 30 days.
--- NOTE | 2022-03-25 15:41 | HMH.RHREAS ---
Rehab Reassessment Rehab OP Re-assessment Start: 02/29/20 14:39 Freq: Status: Active Protocol: Document 03/25/22 15:38 PAWAN (Rec: 03/25/22 15:40 PAWAN [id number]) Electronically Signed By Jarad Gomes, PT 03/25/22 15:38 Rehab Re-assessment Subjective Subjective Pt reports no new c/o, continues to have pain along lateral border of L foot. Objective Objective Notes L Lateral ankle wound: L= 9.5 cm, W= 10.0 cm. Large amts of serous drainage. Assessment Progress Assessment Progressing as Expected Assessment Notes Pt with significant reduction of drainage from R lower legs. L LE wounds remain macerated. Wounds appear to be significantly smaller overall, but lateral ankle remains large. Continued difficulty with drainage control due to copious amts. Patient goals met ST,2,3,4 Goals Not Met LT,2,3,4,5,6 Revised Goals none Plan Plan Continue per initial POC Frequency of Therapy 3 x/wk Duration of therapy 8 wks Time and Billing Re-Eval Time 13 Re-Eval Billing Units 1 PHYSICIAN CERTIFICATION: I certify the specified therapy services for Riki Mckeon are required, authorized, and reviewed every 30 days.
--- NOTE | 2022-04-20 15:51 | HMH.RHREAS ---
Rehab Reassessment Rehab OP Re-assessment Start: 02/29/20 14:39 Freq: Status: Active Protocol: Document 04/20/22 15:49 PAWAN (Rec: 04/20/22 15:51 PAWAN [id number]) Electronically Signed By Jarad Gomes, PT 04/20/22 15:49 Rehab Re-assessment Subjective Subjective Pt reports, I'm tired, but I' m always tired on Wednesday's. Pain 0/10. Objective Objective Notes L Lateral ankle wound: L= 8.4 cm, W= 10.0 cm. R medial lower wound: L= 3.0 cm, W= 3.3 cm. Large amts of serous drainage. Assessment Progress Assessment Progressing as Expected Assessment Notes Continues to have large amts of drainage despite compression and absorbant pads . Minimal depth to R LE wound, Less size in wound area, but continued luis angel-wound maceration. Patient goals met ST,2,3,4 Goals Not Met LT,2,3,4,5,6 Revised Goals none Plan Plan Continue per initial POC Frequency of Therapy 3 x/wk Duration of therapy 8 wks Time and Billing Re-Eval Time 14 Re-Eval Billing Units 1 PHYSICIAN CERTIFICATION: I certify the specified therapy services for Riki Mckeon are required, authorized, and reviewed every 30 days.
--- NOTE | 2022-05-15 16:11 | HMH.RHREAS ---
Rehab Reassessment Rehab OP Re-assessment Start: 02/29/20 14:39 Freq: Status: Active Protocol: Document 05/15/22 16:01 PAWAN (Rec: 05/15/22 16:07 PAWAN [id number]) E-signed By Jarad Gomes, PT Rehab Re-assessment Subjective Subjective Pt reports no changes, continues to have pain from arthritis, but no difficulty with wounds. Objective Objective Notes R Post. lower leg wound: L= 9. 0 cm, W= 24.0 cm, D= 0.0 cm. L lateral ankle wound: L= 19.0 cm, W= 7.5, D= 0.0 cm Assessment Progress Assessment Slower Than Expected Assessment Notes He has shown changes with wounds healing in some areas, but worsening in others. Continues to have copious drainage from B LE and macerated luis angel-wound skin. Possible needs topical antibiotic of some type as betadine and daikin's soultion have done little to heal the wounds at this point. Patient goals met ST,2,3,4 Goals Not Met LT,2,3,4,5,6 Revised Goals none Plan Plan Continue per initial POC Frequency of Therapy 3 x/wk Duration of therapy 8 wks Time and Billing Re-Eval Time 14 Re-Eval Billing Units 1 PHYSICIAN CERTIFICATION: I certify the specified therapy services for Riki Mckeon are required, authorized, and reviewed every 30 days.
--- NOTE | 2022-06-17 15:39 | HMH.RHREAS ---
Rehab Reassessment Rehab OP Re-assessment Start: 02/29/20 14:39 Freq: Status: Active Protocol: Document 06/17/22 15:34 PHOHALEY (Rec: 06/17/22 15:39 PHORRIANNA [id number]) E-signed By Jarad Gomes, PT Rehab Re-assessment Subjective Subjective Pt reports increased pain around R toes 2-3 this date. Objective Objective Notes R Post. lower leg wound: L= 5. 0 cm, W= 8.7 cm, D= 0.1 cm. L lateral ankle wound: L= 9.8 cm, W= 12.5, D= 0.1 cm 10% slough, 90% red, shiny wound bed. Assessment Progress Assessment Slower Than Expected Assessment Notes Pt has shown significant reduction in overall wound surface area since previous reassessment. However, he continues to have copious amts of serous drainage from B LE despite absorbant dressings and multi-layered compression wraps. Podiatry consult is warranted for worsening L 2nd and 3rd toe wounds. Patient goals met ST,2,3,4 Goals Not Met LT,2,3,4,5,6 Revised Goals none Plan Plan Continue per initial POC Frequency of Therapy 3 x/wk Duration of therapy 8 wks Time and Billing Re-Eval Time 16 Re-Eval Billing Units 1 PHYSICIAN CERTIFICATION: I certify the specified therapy services for Riki Mckeon are required, authorized, and reviewed every 30 days.
--- NOTE | 2022-07-13 16:04 | HMH.RHREAS ---
Rehab Reassessment Rehab OP Re-assessment Start: 02/29/20 14:39 Freq: Status: Active Protocol: Document 07/13/22 16:01 PAWAN (Rec: 07/13/22 16:04 PADMAHALEY [id number]) E-signed By Jarad Gomes, PT Rehab Re-assessment Subjective Subjective Pt reports, I'm supposed to be getting some kind of antibiotic to put on my legs that Dr. Brito ordered. Objective Objective Notes B LE with continued copious amts of drainage, L > R. L lateral ankle wound L= 10.0 cm , W= 15.0 cm, D= 0.2 cm. Borders appear irregular with significant luis angel-wound skin maceration. Indistinct border makes accurate measurments difficult to obtain. Assessment Progress Assessment Slower Than Expected Assessment Notes Pt with significant changes in B LE with increased maceration of the luis angel-wound skin B. Difficulty with healing at this time with infection or critical colonization in wounds likely. Topical abx should help increase healing rate. Patient goals met ST,2,3,4 Goals Not Met LT,2,3,4,5,6 Revised Goals none Plan Plan Continue per initial POC Frequency of Therapy 3 x/wk Duration of therapy 8 wks Time and Billing Re-Eval Time 16 Re-Eval Billing Units 1 PHYSICIAN CERTIFICATION: I certify the specified therapy services for Riki Mckeon are required, authorized, and reviewed every 30 days.
--- NOTE | 2022-08-12 15:59 | HMH.RHREAS ---
Rehab Reassessment Rehab OP Re-assessment Start: 02/29/20 14:39 Freq: Status: Active Protocol: Document 08/12/22 15:53 PADMAHALEY (Rec: 08/12/22 15:58 PHOHALEY [id number]) E-signed By Jarad Gomes PT Rehab Re-assessment Subjective Subjective PATIENT REPORT HE'S BEEN SICK, I HAD TO TAKE PART OF MY BANDAGE OFF. Objective Objective Notes R LE medial ankle wound: L= 2. 5 cm, W= 2.5 cm, D= 0.1 cm. L LE lateral ankle wound: L= 8 .0 cm, W= 7.0 cm, D= 0.1 cm. B LE with continued Copious amts of serous drainage with luis angel-wound maceration. Assessment Progress Assessment Slower Than Expected Assessment Notes Pt continues to have significant amts of drainage on B LE. Wounds appear to have less slough this date in the wound bed, but increased luis angel- wound skin maceration. Continues to have difficulty with overall hygiene which undoubtedly affects wound healing. Patient goals met ST,2,3,4 Goals Not Met LT,2,3,4,5,6 Revised Goals none Plan Plan Continue per initial POC Frequency of Therapy 3 x/wk Duration of therapy 8 wks Time and Billing Re-Eval Time 14 Re-Eval Billing Units 1 PHYSICIAN CERTIFICATION: I certify the specified therapy services for Riki Mckeon are required, authorized, and reviewed every 30 days.
--- NOTE | 2022-09-14 16:08 | HMH.RHREAS ---
Rehab Reassessment Rehab OP Re-assessment Start: 02/29/20 14:39 Freq: Status: Active Protocol: Document 09/14/22 15:59 PADMADelvisRIANNA (Rec: 09/14/22 16:08 PHOHALEY [id number]) E-signed By Jarad Gomes, PT Rehab Re-assessment Subjective Subjective Pt reports, I couldn't make it on Wednesday, there wasn't anybody else at work. Continues to reports minimal c /o pain in B LE. Objective Objective Notes R LE medial ankle wound: L= 5. 0 cm, W= 8.0 cm, D= 0.1 cm. L LE lateral ankle wound: L= 8 .0 cm, W= 10.0 cm, D= 0.1 cm. Center of wound with bound down yellow slough. B LE with continued Copious amts of serous drainage with luis angel-wound maceration. Assessment Progress Assessment Slower Than Expected Assessment Notes Patient continues to present with increasing drainage from B lower legs with luis angel-wound skin maceration. Topical antibotics prescribed by DPM appear to be have little effect, but are continuing to be applied as directed. Patient goals met ST,2,3,4 Goals Not Met LT,2,3,4,5,6 Revised Goals none Plan Plan Continue per initial POC Frequency of Therapy 3 x/wk Duration of therapy 8 wks Time and Billing Re-Eval Time 15 Re-Eval Billing Units 1 PHYSICIAN CERTIFICATION: I certify the specified therapy services for Riki Mckeon are required, authorized, and reviewed every 30 days.
--- NOTE | 2022-10-12 16:32 | HMH.RHREAS ---
Rehab Reassessment Rehab OP Re-assessment Start: 02/29/20 14:39 Freq: Status: Active Protocol: Document 10/12/22 16:29 PHOHALEY (Rec: 10/12/22 16:32 PHORNE [id number]) E-signed By Jarad Gomes, PT Rehab Re-assessment Subjective Subjective Pt reports no increased pain in B LE this date. I think that spray medicine is bothering my skin, though. Objective Objective Notes B LE continue with copious amts od drainage, worst is inferior ankles. All wounds appear healthy except yellow slough at wound base of L lateral ankle wound. Continues to show significant luis angel- wound skin maceration and irregular wound borders. R LE medial ankle wound: L= 15 .0 cm, W= 10.0 cm, D= 0.1 cm. L LE lateral ankle wound: L= 18.0 cm, W= 15.0 cm, D= 0.3 cm . Assessment Progress Assessment Slower Than Expected Assessment Notes Pt continues to show increasing maceration of per- wound skin due to copious amts of serous drainage. Mild foul odor to B lower legs noted. Wound without significant depth, but increased overall area. Patient goals met ST,2,3,4 Goals Not Met LT,2,3,4,5,6 Revised Goals none Plan Plan Continue per initial POC Frequency of Therapy 3 x/wk Duration of therapy 8 wks Time and Billing Re-Eval Time 16 Re-Eval Billing Units 1 PHYSICIAN CERTIFICATION: I certify the specified therapy services for Riki Mckeon are required, authorized, and reviewed every 30 days.
--- NOTE | 2022-11-11 16:05 | HMH.RHREAS ---
Rehab Reassessment Rehab OP Re-assessment Start: 02/29/20 14:39 Freq: Status: Active Protocol: Document 11/11/22 15:56 PHODelvisRIANNA (Rec: 11/11/22 16:05 PHOHALEY [id number]) E-signed By Jarad Gomes, PT Rehab Re-assessment Subjective Subjective Pt continues to have minimal c /o discomfort during dressing changes. I was supposed to get my diabetic shoes today, but they were too small. Objective Objective Notes R LE medial ankle wound: L= 11 .3 cm, W= 30.0 cm, D= 0.1 cm 80% granulation, 20% slough. L LE lateral ankle wound: L= 10.0 cm, W= 30.0 cm, D= 0.2 cm 80% granulation, 20% slough. B LE wounds continue with copious amts of drainage and luis angel-wound maceration. Wound borders remain indistinct. Assessment Progress Assessment Slower Than Expected Assessment Notes Pt continues to have excessive amounts of drainage from B LE . Wound VAC dressing has been applied, but seal is difficult to maintain and patient has lost upwards of 1000 mL in a 3 day period. Wounds have progressed to the point they are difficult to manage with the VAC due to need for at least 2 full sponges on the wound bed during each dressing change. He continues to require skilled treatment for wound care at this time in order to reach all goals. Patient goals met ST,2,3,4 Goals Not Met LT,2,3,4,5,6 Revised Goals none Plan Plan Continue per initial POC Frequency of Therapy 3 x/wk Duration of therapy 8 wks Time and Billing Re-Eval Time 14 Re-Eval Billing Units 1 PHYSICIAN CERTIFICATION: I certify the specified therapy services for Riki Mckeon are required, authorized, and reviewed every 30 days.
--- NOTE | 2022-12-07 15:58 | HMH.RHREAS ---
Rehab Reassessment Rehab OP Re-assessment Start: 02/29/20 14:39 Freq: Status: Active Protocol: Document 12/07/22 15:54 PHODelvisRIANNA (Rec: 12/07/22 15:58 PHORRIANNA [id number]) E-signed By Jarad Gomes, PT Rehab Re-assessment Subjective Subjective Pt reports he has more knee pain today, but less foot pain than usual. He has no other c /o at this time. Objective Objective Notes Continued copious amts of serous drainage from B LE at this time. B LE with continued luis angel-wound maceration and irregular wound borders. R LE medial ankle wound: L= 17 .5 cm, W= 30.0 cm, D= 0.1 cm 90% granulation, 10% slough. L LE lateral ankle wound: L= 13.5 cm, W= 30.0 cm, D= 0.2 cm 90% granulation, 10% slough. Assessment Progress Assessment Slower Than Expected Assessment Notes Pt continues to show increasing size of overall wound area. L LE with increased mnaceration around the toes of the foot. Pt overall prognosis is guarded with incredible amts of drainage causing further maceration of the skin. Pt continues to need skilled therapy interventions for wound care to improve functional mobility and quality of life with all ADLs. Patient goals met ST,2,3,4 Goals Not Met LT,2,3,4,5,6 Revised Goals none Plan Plan Continue per initial POC Frequency of Therapy 3 x/wk Duration of therapy 8 wks Time and Billing Re-Eval Time 16 Re-Eval Billing Units 1 PHYSICIAN CERTIFICATION: I certify the specified therapy services for Riki Mckeon are required, authorized, and reviewed every 30 days.
--- NOTE | 2023-01-04 15:38 | HMH.RHREAS ---
Rehab Reassessment Rehab OP Re-assessment Start: 02/29/20 14:39 Freq: Status: Active Protocol: Document 01/04/23 15:32 PHOHALEY (Rec: 01/04/23 15:37 PHORRIANNA [id number]) E-signed By Jarad Gomes, PT Rehab Re-assessment Subjective Subjective Pt reports no c/o pain in knee or increased in feet this date. Jus a little pain from my arthritis. Objective Objective Notes Continued copious amts of serous drainage from B LE at this time, drainage has an odor, possibly due to its sheer amount. B LE with continued luis angel-wound maceration and irregular wound borders. R LE medial ankle wound: L= 15 .0 cm, W= 15.0 cm, D= 0.1 cm 90% granulation, 10% slough. L LE lateral ankle wound: L= 12.5 cm, W= 28.0 cm, D= 0.2 cm 90% granulation, 10% slough. Assessment Progress Assessment Slower Than Expected Assessment Notes Pt continues to have fluctuations and changes in wound borders due to their irregularity. However, Overall wound area and amts of drinage remain extremely large . Continues to saturate multiple super absorbent dressings in a 48 hr time frame. He continues to need skilled intervention to achieve full wound healing. Patient goals met ST,2,3,4 Goals Not Met LT,2,3,4,5,6 Revised Goals none Plan Plan Continue per initial POC Frequency of Therapy 3 x/wk Duration of therapy 8 wks Time and Billing Re-Eval Time 14 Re-Eval Billing Units 1 PHYSICIAN CERTIFICATION: I certify the specified therapy services for Riki Mckeon are required, authorized, and reviewed every 30 days.
--- NOTE | 2023-02-03 16:42 | HMH.RHREAS ---
Rehab Reassessment Rehab OP Re-assessment Start: 02/29/20 14:39 Freq: Status: Active Protocol: Document 02/03/23 16:33 PHODelvisRIANNA (Rec: 02/03/23 16:42 PHORRIANNA [id number]) E-signed By Jarad Gomes, PT Rehab Re-assessment Subjective Subjective Pt reports he feels some better overall, continues to have pain in his feet which is a typical c/o. Objective Objective Notes Continued copious amts of serous drainage from B LE at this time, drainage has an odor, possibly due to its sheer amount. B LE with continued luis angel-wound maceration and irregular wound borders. Richards/yellow slough in center of each wound bed with some concern for necrosis . R LE medial ankle wound: L= 10 .0 cm, W= 11.0 cm, D= 0.1 cm 90% granulation, 10% slough. L LE lateral ankle wound: L= 11.0 cm, W= 11.0 cm, D= 0.2 cm 90% granulation, 10% slough. Assessment Progress Assessment Slower Than Expected Assessment Notes He has shown a significant decrease in overall wound are on the L LE this date. However , wound slough and continued copious drainage are likely delaying healing. He continues to need skilled intervention to return to prior level of function. Patient goals met ST,2,3,4 Goals Not Met LT,2,3,4,5,6 Revised Goals none Plan Plan Continue per initial POC Frequency of Therapy 3 x/wk Duration of therapy 8 wks Time and Billing Re-Eval Time 15 Re-Eval Billing Units 1 PHYSICIAN CERTIFICATION: I certify the specified therapy services for Riki Mckeon are required, authorized, and reviewed every 30 days.
--- NOTE | 2023-03-03 15:24 | HMH.RHREAS ---
Rehab Reassessment Rehab OP Re-assessment Start: 02/29/20 14:39 Freq: Status: Active Protocol: Document 03/03/23 15:19 PHOHALEY (Rec: 03/03/23 15:24 PHORRIANNA [id number]) E-signed By Jarad Gomes, PT Rehab Re-assessment Subjective Subjective Pt reports no new changes in pain. He continues to have baseline difficulty walking with short, shuffling steps. He continues to have difficulty with overall fatigue. Objective Objective Notes Continued copious amts of serous drainage from B LE at this time, drainage has an odor, possibly due to its sheer amount. B LE with continued luis angel-wound maceration and irregular wound borders. Richards/yellow slough in center of each wound bed with some concern for necrosis . R LE medial ankle wound: L= 8. 0 cm, W= 12.0 cm, D= 0.1 cm 90 % granulation, 10% slough. L LE lateral ankle wound: L= 12.0 cm, W= 9.5 cm, D= 0.2 cm 90% granulation, 10% slough. Assessment Progress Assessment Slower Than Expected Assessment Notes Pt continues to have consistent, copious drainage from B LE with resulting per- wound skin maceration. B LE skin remains very friable and wound borders fluctuate frequently due to indistinct nature of the CVI wounds. He continues to have difficulty with all ADLs and ambulation. He continues to need skilled intervention to return to prior level of function. Patient goals met ST,2,3,4 Goals Not Met LT,2,3,4,5,6 Revised Goals none Plan Plan Continue per initial POC Frequency of Therapy 3 x/wk Duration of therapy 8 wks Time and Billing Re-Eval Time 14 Re-Eval Billing Units 1 PHYSICIAN CERTIFICATION: I certify the specified therapy services for Riki Mckeon are required, authorized, and reviewed every 30 days.
--- NOTE | 2023-03-31 16:44 | HMH.RHREAS ---
Rehab Reassessment Rehab OP Re-assessment Start: 02/29/20 14:39 Freq: Status: Active Protocol: Document 03/31/23 16:35 PHOHALEY (Rec: 03/31/23 16:38 PHORRIANNA [id number]) E-signed By Jarad Gomes, PT Rehab Re-assessment Subjective Subjective My ankles have been hurting Pt continues to report no gross pain throughout the lower legs despite extensive wounds noted. Objective Objective Notes Continued copious amts of serous drainage from B LE at this time, drainage has an odor, possibly due to its sheer amount. B LE with continued luis angel-wound maceration and irregular wound borders. Richards/yellow slough in center of each wound bed with some concern for necrosis . R LE medial ankle wound: L= 13 .0 cm, W= 18.0 cm, D= 0.1 cm 90% granulation, 10% slough. L LE lateral ankle wound: L= 15.0 cm, W= 13.0 cm, D= 0.1 cm 90% granulation, 10% slough. Assessment Progress Assessment Slower Than Expected Assessment Notes Pt continues to have fluctuating wound borders with indistinct margins throughout . Copious drainage reults in various amounts of maceration of the luis angel-wound skin as well . Pt continues to have difficulty with ADLs, especially dressing and bathing, due to extensive LE wounds. He continues to need skilled intervention to return to prior level of function. Patient goals met ST,2,3,4 Goals Not Met LT,2,3,4,5,6 Revised Goals none Plan Plan Continue per initial POC Frequency of Therapy 3 x/wk Duration of therapy 8 wks Time and Billing Re-Eval Time 15 Re-Eval Billing Units 1 PHYSICIAN CERTIFICATION: I certify the specified therapy services for Riki Mckeon are required, authorized, and reviewed every 30 days.
--- NOTE | 2023-04-26 15:34 | HMH.RHREAS ---
Rehab Reassessment Rehab OP Re-assessment Start: 02/29/20 14:39 Freq: Status: Active Protocol: Document 04/26/23 15:28 PHODelvisRIANNA (Rec: 04/26/23 15:33 PHORNE [id number]) E-signed By Jarad Gomes, PT Rehab Re-assessment Subjective Subjective Pt reports no new c/o pain in B LE. I'm just really tired today. I don't know why, but I didn't sleep well this whole weekend. Objective Objective Notes Continued copious amts of serous drainage from B LE at this time, drainage has an odor, possibly due to its sheer amount. B LE with continued luis angel-wound maceration and irregular wound borders. Richards/yellow slough in center of each wound bed with some concern for necrosis . R LE medial ankle wound: L= 12 .0 cm, W= 13.0 cm, D= 0.1 cm 90% granulation, 10% slough. L LE lateral ankle wound: L= 11.0 cm, W= 13.0 cm, D= 0.2 cm 90% granulation, 10% slough. Assessment Progress Assessment Slower Than Expected Assessment Notes Pt continues to have fluctuating wound borders with indistinct margins on B LE. Some areas appear to be epithelializing,but this skin remains very fragile. Copious drainage continues to reult in various amounts of maceration of the luis angel-wound skin as well. Pt continues to have difficulty with ADLs, especially dressing and bathing, due to extensive LE wounds. He continues to need skilled intervention to return to prior level of function. Patient goals met ST,2,3,4 Goals Not Met LT,2,3,4,5,6 Revised Goals none Plan Plan Continue per initial POC Frequency of Therapy 3 x/wk Duration of therapy 8 wks Time and Billing Re-Eval Time 17 Re-Eval Billing Units 1 PHYSICIAN CERTIFICATION: I certify the specified therapy services for Lyn Linda are required, authorized, and reviewed every 30 days.
--- NOTE | 2023-05-26 15:38 | HMH.RHREAS ---
Rehab Reassessment Rehab OP Re-assessment Start: 02/29/20 14:39 Freq: Status: Active Protocol: Document 05/26/23 15:34 PHODelvisRIANNA (Rec: 05/26/23 15:38 PHORNE [id number]) E-signed By Jarad Gomes, PT Rehab Re-assessment Subjective Subjective My left leg basically hurts all the time now. Overall, no increased pain rating, but more consistent pain in the L LE instead of intermittent. Objective Objective Notes Continued copious amts of serous drainage from B LE at this time, drainage has an odor, possibly due to its sheer amount. B LE with continued luis angel-wound maceration and irregular wound borders. L LE showing Richards/ yellow slough in center of each wound bed with some concern for necrosis. R LE medial ankle wound: L= 4. 0 cm, W= 4.0 cm, D= 0.1 cm 95% granulation, 5% slough. L LE lateral ankle wound: L= 7 .5 cm, W= 8.6 cm, D= 0.3 cm 80 % granulation, 20% slough. Assessment Progress Assessment Slower Than Expected Assessment Notes Pt has shown some significant overall decrease in wound surface area. However, considerably increased wound depth overall on the L LE. He continues to need skilled intervention to return to prior level of function. Patient goals met ST,2,3,4 Goals Not Met LT,2,3,4,5,6 Revised Goals none Plan Plan Continue per initial POC Frequency of Therapy 3 x/wk Duration of therapy 8 wks Time and Billing Re-Eval Time 14 Re-Eval Billing Units 1 PHYSICIAN CERTIFICATION: I certify the specified therapy services for Riki Mckeon are required, authorized, and reviewed every 30 days.
--- NOTE | 2023-07-26 16:23 | HMH.RHREAS ---
Rehab Reassessment Rehab OP Re-assessment Start: 02/29/20 14:39 Freq: Status: Active Protocol: Document 07/26/23 15:18 CHARIS (Rec: 07/26/23 16:22 CHARIS [id number]) E-signed By Lul Crespo, PT Rehab Re-assessment Subjective Subjective Pt reports recent absence from skilled P.T. d/t venous stent placement in RLE. Pt does report however since last reassessment improved swelling in bilateral LE's, and no pain in bilateral LE's associated w/wounds. Objective Objective Notes R LE medial ankle wound: healed. dry,flaky,cracked skin , fibrotic tissue with decreased pitting edema L LE medial rivera wound: L= 6.5 cm, W= 2.8 cm, D= 0.2 cm, fibrotic/hard tisue 10% granulation, 90% ha slough. Assessment Progress Assessment Progressing as Expected Assessment Notes improved RLE medial ankle wound Patient goals met ST,2,3,4 Goals Not Met LT,2,3,4,5,6 Plan Plan Continue per initial POC Frequency of Therapy 3x/wk Duration of therapy 8wks Time and Billing Re-Eval Time 12 Re-Eval Billing Units 0 PHYSICIAN CERTIFICATION: I certify the specified therapy services for Riki Mckeon are required, authorized, and reviewed every 30 days.
--- NOTE | 2023-08-27 15:56 | HMH.RHREAS ---
Rehab Reassessment Rehab OP Re-assessment Start: 02/29/20 14:39 Freq: Status: Active Protocol: Document 08/27/23 15:53 PAWAN (Rec: 08/27/23 15:56 PHOHALEY [id number]) E-signed By Jarad Gomes, PT Rehab Re-assessment Subjective Subjective Pt reports, My left foot has been sore on the top of it, but I'm not sure why. Objective Objective Notes R LE medial ankle wound: L= 4. 5 cm, W= 7.4 cm, D= 0.1 cm. L LE medial rivera wound: L= 3.1 cm, W= 5.8 cm, D= 0.3 cm, fibrotic/hard tisue 80% granulation, 20% ha slough. Assessment Progress Assessment Progressing as Expected Assessment Notes Pt with significant improvement in overall drainage and wound surface area. He continues to need skilled intervention to return to prior level of function. Patient goals met ST,2,3,4 Goals Not Met LT,2,3,4,5,6 Plan Plan Continue per initial POC Frequency of Therapy 3x/wk Duration of therapy 8wks Time and Billing Re-Eval Time 15 Re-Eval Billing Units 0 PHYSICIAN CERTIFICATION: I certify the specified therapy services for Riki Mckeon are required, authorized, and reviewed every 30 days.
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
--- NOTE | 2023-10-20 16:16 | HMH.RHREAS ---
Rehab Reassessment Rehab OP Re-assessment Start: 02/29/20 14:39 Freq: Status: Active Protocol: Document 10/20/23 16:11 PHOHALEY (Rec: 10/20/23 16:15 PHORRIANNA [id number]) E-signed By Jarad Gomes, PT Rehab Re-assessment Subjective Subjective Pt reports increased sensitivity and pain with use of skintegrity wound cleanser spray now. He has never had difficulty with pain from this spray over thepast 3 yrs until now. Switched to sterile water for wound cleansing which has relieved the pain. Objective Objective Notes R LE medial ankle wound: L= 5. 2 cm, W= 9.4 cm, D= 0.1 cm. L LE medial rivera wound: L= 4.7 cm, W= 7.9 cm, D= 0.2 cm, fibrotic/hard tisue 90% granulation, 10% ha slough. Assessment Progress Assessment Slower Than Expected Assessment Notes Pt continues to have fluctuating wound borders with indistinct margins on B LE. Some areas appear to be epithelializing,but this skin remains very fragile. Copious drainage continues to reult in various amounts of maceration of the luis angel-wound skin as well. Pt continues to have difficulty with ADLs, especially dressing and bathing, due to extensive LE wounds. He continues to need skilled intervention to return to prior level of function. Patient goals met ST,2,3,4 Goals Not Met LT,2,3,4,5,6 Revised Goals none Plan Plan Continue per initial POC Frequency of Therapy 3x/wk Duration of therapy 8wks Time and Billing Re-Eval Time 14 Re-Eval Billing Units 0 PHYSICIAN CERTIFICATION: I certify the specified therapy services for Riki Mckeon are required, authorized, and reviewed every 30 days.
--- NOTE | 2023-11-17 16:01 | HMH.RHREAS ---
Rehab Reassessment Rehab OP Re-assessment Start: 02/29/20 14:39 Freq: Status: Active Protocol: Document 11/17/23 15:58 SILVERIORIANNA (Rec: 11/17/23 16:01 PHOHALEY [id number]) E-signed By Jarad Gomes, PT Rehab Re-assessment Subjective Subjective Pt reports continued tenderness and pain around the posterior aspect of B ankles. He reports overall B LE feel much better, but states I feel really weak today. Objective Objective Notes R LE medial ankle wound: L= 8. 0 cm, W= 10.0 cm, D= 0.1 cm. L LE medial rivera wound: L= 10. 0 cm, W= 20.0 cm, D= 0.2 cm, fibrotic/hard tisue 90% granulation, increased epithelialization. Assessment Progress Assessment Progressing as Expected Assessment Notes Pt has shown significant improvment in B LE wounds with less necrosis and significantly less drainage than last visit. He continues to need skilled intervention to return to prior level of function. Patient goals met ST,2,3,4 Goals Not Met LT,2,3,4,5,6 Plan Plan Continue per initial POC Frequency of Therapy 3x/wk Duration of therapy 8wks Time and Billing Re-Eval Time 11 Re-Eval Billing Units 0 PHYSICIAN CERTIFICATION: I certify the specified therapy services for Riki Mckeon are required, authorized, and reviewed every 30 days.
--- NOTE | 2023-12-13 15:52 | HMH.RHREAS ---
Rehab Reassessment Rehab OP Re-assessment Start: 02/29/20 14:39 Freq: Status: Active Protocol: Document 12/13/23 15:41 PHOHALEY (Rec: 12/13/23 15:51 PHORRIANNA [id number]) E-signed By Jarad Gomes, PT Patric Wound Assessment Tool Assessment Wound size 5=Length x Width >80 sq cm Wound depth 3=Full thickness skin loss involving damage or necrosis of Wound edges 3=Well-defined, not attached to wound base Wound undermining 1=None present Necrotic tissue type 3=Loosely adherent yellow slough Necrotic tissue amount 2=<25% of wound bed covered Exudate type 4=Serous: thin, watery, clear Exudate amount 5=Large Skin color surrounding wound 3=White or bhakta pallor or hypopigmented Peripheral tissue edema 4=Pitting edema extends <4 cm around wound Peripheral tissue induration 1=None present Granulation tissue 3=Bright, beefy red; <75% & > 25% of wound filled Epithelialization 5= < 25% wound covered Wound assessment total score 42 Rehab Re-assessment Subjective Subjective Pt reports posterior aspect of B LE wounds is more tender than it has been over the past 2 weeks. He continues to have difficulty propping his LE due to working during the week . Objective Objective Notes R LE medial ankle wound: L= 8. 0 cm, W= 9.0 cm, D= 0.1 cm. L LE medial rivera wound: L= 10. 0 cm, W= 19.0 cm, D= 0.2 cm, fibrotic/hard tisue 90% granulation, increased epithelialization. Assessment Assessment Notes Pt has shown worsening of B LE wounds with return of copious amounts drainage and moderate odor. He continues to need skilled intervention to return to prior level of function. Patient goals met ST,2,3,4 Goals Not Met LT,2,3,4,5,6 Revised Goals none Plan Plan Continue per initial POC Frequency of Therapy 3x/wk Duration of therapy 8wks Time and Billing Re-Eval Time 12 Re-Eval Billing Units 0 PHYSICIAN CERTIFICATION: I certify the specified therapy services for Riki Mckeon are required, authorized, and reviewed every 30 days.
--- NOTE | 2024-01-10 16:29 | HMH.RHREAS ---
Rehab Reassessment Rehab OP Re-assessment Start: 02/29/20 14:39 Freq: Status: Active Protocol: Document 01/10/24 16:23 PHORNE (Rec: 01/10/24 16:29 PHORNE Laptop) E-signed By Jarad Gomes, PT Patric Wound Assessment Tool Assessment Wound size 5=Length x Width >80 sq cm Wound depth 3=Full thickness skin loss involving damage or necrosis of Wound edges 4=Well-defined, not attached to base, rolled under, thickened Wound undermining 1=None present Necrotic tissue type 3=Loosely adherent yellow slough Necrotic tissue amount 3=25% to 50% of wound covered Exudate type 4=Serous: thin, watery, clear Exudate amount 5=Large Skin color surrounding wound 2=Bright red &/or blanches to touch Peripheral tissue edema 4=Pitting edema extends <4 cm around wound Peripheral tissue induration 4=Induration 2-4 cm extending > or = 50% around wound Granulation tissue 3=Bright, beefy red; <75% & > 25% of wound filled Epithelialization 5= < 25% wound covered Wound assessment total score 46 Rehab Re-assessment Subjective Subjective Pt reports he has been feeling worse overall lately, just his overall health is declining. He reports increased pain with dressing changes this date. Objective Objective Notes R LE medial ankle wound: L= 9. 0 cm, W= 20.0 cm, D= 0.1 cm. L LE medial rivera wound: L= 11. 0 cm, W= 26.0 cm, D= 0.2 cm, fibrotic/hard tissue 70% granulation. Assessment Progress Assessment Slower Than Expected Assessment Notes Pt overall tissue health is improving, but he has increased pain in B LE. He continues to have difficulty with ambulation and all ADLs. He continues to need skilled therapy services to return to prior level of function. Patient goals met ST,2,3,4 Goals Not Met LT,2,3,4,5,6 Revised Goals none Plan Plan Continue per initial POC Frequency of Therapy 3x/wk Duration of therapy 8wks Time and Billing Re-Eval Time 10 Re-Eval Billing Units 0 PHYSICIAN CERTIFICATION: I certify the specified therapy services for Riki Herrerae are required, authorized, and reviewed every 30 days.
--- NOTE | 2024-02-09 15:43 | HMH.RHREAS ---
Rehab Reassessment Rehab OP Re-assessment Start: 02/29/20 14:39 Freq: Status: Active Protocol: Document 02/09/24 15:39 PAWAN (Rec: 02/09/24 15:42 PAWAN [id number]) E-signed By Jarad Gomes, PT Rehab Re-assessment Subjective Subjective Pr reports, I haven't been here for a week because I've been too sick to come. He reports no increased pain with B LE, but he remains somewhat tender to touch around a few of his LE wounds. Objective Objective Notes R LE medial ankle wound: L= 5. 0 cm, W= 3.5 cm, D= 0.1 cm. L LE medial rivera wound: L= 6.4 cm, W= 4.1 cm, D= 0.2 cm, fibrotic/hard tissue 80% granulation. Assessment Progress Assessment Progressing as Expected Assessment Notes B LE with less drainage than is common, especially considering dressings have been in place for 7 days. The drainage has a foul odor, but not the wounds themselves it seems. Wound size is decreasing with less luis angel- wound maceration and skin irritation. Skilled therapy remains indicate to aid pt return to prior level of function. Patient goals met ST,2,3,4 Goals Not Met LT,2,3,4,5,6 Plan Plan Continue per initial POC Frequency of Therapy 3x/wk Duration of therapy 8wks Time and Billing Re-Eval Time 12 Re-Eval Billing Units 0 PHYSICIAN CERTIFICATION: I certify the specified therapy services for Riki Mckeon are required, authorized, and reviewed every 30 days.
--- NOTE | 2024-03-13 17:22 | HMH.RHREAS ---
Rehab Reassessment Rehab OP Re-assessment Start: 02/29/20 14:39 Freq: Status: Active Protocol: Document 03/13/24 17:16 PAWAN (Rec: 03/13/24 17:21 PHORNE [id number]) E-signed By Jarad Gomes, PT Rehab Re-assessment Subjective Subjective Pt reports, I'm still pretty tender on those spots behind my ankle on both sides of my legs. Objective Objective Notes R LE medial ankle wound: L= 5. 1 cm, W= 4.4 cm, D= 0.1 cm. L LE medial rivera wound: L= 5.0 cm, W= 2.5 cm, D= 0.2 cm. Assessment Progress Assessment Progressing as Expected Assessment Notes Pt again missed an appointment last week and dressings have been in place for 7 days. The drainage continues to have a foul odor, but not the wounds themselves once cleansed. Wound size is decreasing with less luis angel-wound maceration and skin irritation. Skilled therapy remains indicated to aid pt return to prior level of function. Patient goals met ST,2,3,4 Goals Not Met LT,2,3,4,5,6 Revised Goals none Plan Plan Continue per initial POC Frequency of Therapy 2x/wk Duration of therapy 8wks Time and Billing Re-Eval Time 10 Re-Eval Billing Units 0 PHYSICIAN CERTIFICATION: I certify the specified therapy services for Riki Mckeon are required, authorized, and reviewed every 30 days.
--- NOTE | 2024-04-17 15:41 | HMH.RHREAS ---
Rehab Reassessment Rehab OP Re-assessment Start: 02/29/20 14:39 Freq: Status: Active Protocol: Document 04/17/24 15:37 [email or web address] (Rec: 04/17/24 15:41 PHOHALEY [id number]) E-signed By Jarad Gomes, PT Rehab Re-assessment Subjective Subjective Pt reports increased tenderness to palpation in posterior ankle on B LE in the area of the achilles tendon superior to the distal insertion. Objective Objective Notes R LE post ankle wound: L= 0.6 cm, W= 1.0 cm, D= 0.1 cm. L LE lateral rivera wound: L= 3. 0 cm, W= 1.4 cm, D= 0.2 cm. Assessment Progress Assessment Progressing as Expected Assessment Notes Much improved overall wound surface area with less overall drainage noted. However, L lateral ankle remains bhakta at the base of the wound bed. Skilled therapy remains indicated to aid pt return to prior level of function. Patient goals met ST,2,3,4 Goals Not Met LT,2,3,4,5,6 Revised Goals none Plan Plan Continue per initial POC Frequency of Therapy 1-2x/wk Duration of therapy 8wks Time and Billing Re-Eval Time 12 Re-Eval Billing Units 0 PHYSICIAN CERTIFICATION: I certify the specified therapy services for Riki Mckeon are required, authorized, and reviewed every 30 days.
--- NOTE | 2024-05-22 16:32 | HMH.RHREAS ---
Rehab Reassessment Rehab OP Re-assessment Start: 02/29/20 14:39 Freq: Status: Active Protocol: Document 05/22/24 16:30 PAWAN (Rec: 05/22/24 16:32 PHORRIANNA [id number]) E-signed By Jarad Gomes, PT Rehab Re-assessment Subjective Subjective Pt reports today he is not feeling well in general. He feels he has more days like that over the past 1-2 years. He has no increased pain in B lower legs today. Objective Objective Notes R LE post ankle wound: L= 1.0 cm, W= 1.3 cm, D= 0.1 cm. L LE lateral rivera wound: L= 1. 3 cm, W= 2.8 cm, D= 0.2 cm. Assessment Progress Assessment Progressing as Expected Assessment Notes Much improved overall wound surface area with less overall drainage noted. However, L lateral ankle remains bhakta at the base of the wound bed. Skilled therapy remains indicated to aid pt return to prior level of function. Patient goals met ST,2,3,4 Goals Not Met LT,2,3,4,5,6 Revised Goals none Plan Plan Continue per initial POC Frequency of Therapy 1-2x/wk Duration of therapy 8wks Time and Billing Re-Eval Time 11 Re-Eval Billing Units 0 PHYSICIAN CERTIFICATION: I certify the specified therapy services for Riki Mckeon are required, authorized, and reviewed every 30 days.
--- NOTE | 2024-06-26 16:55 | HMH.RHREAS ---
Rehab Reassessment Rehab OP Re-assessment Start: 02/29/20 14:39 Freq: Status: Active Protocol: Document 06/26/24 16:42 PAWAN (Rec: 06/26/24 16:54 PHOHALEY [id number]) E-signed By Jarad Gomes, PT Rehab Re-assessment Subjective Subjective Pt reports no c/o pain in either LE today. He reports he has spent quite a bit of time as inpatient in the hospital and several weeks in short term rehab facility after suffering a heart attack which required him to receive 7 stents. He reports less edema in B LE at this time, but continues to need compression wraps in place. Objective Objective Notes R LE post ankle wound: Appears completely healed at this time, full epithelialization. L LE lateral rivera wound: L= 2. 0 cm, W= 1.8 cm, D= 0.2 cm. Assessment Progress Assessment Progressing as Expected Assessment Notes Pt has had a significant change in status at this time due to his recent WY with multiple stents required. He has shown overall improvement in B LE wounds at this time due to significant time hospitalized and in subacute rehab setting. He continues to need skilled therapy services for wound care in particular due to continues chronic LE wounds. Patient goals met ST,2,3,4 Goals Not Met LT,2,3,4,5,6 Plan Plan Continue per initial POC, Will attempt to obtain compression garments for pt use at home. Frequency of Therapy 1-2x/wk Duration of therapy 4wks Time and Billing Re-Eval Time 10 Re-Eval Billing Units 1 PHYSICIAN CERTIFICATION: I certify the specified therapy services for Riki Mckeon are required, authorized, and reviewed every 30 days.
== END 2024-08-02 23:59 | disposition home or self-care (01) ==
LOC: PT 15:00
PROVIDERS: PCP Internal Medicine Adolescent Medicine; Visit Provider Internal Medicine Adolescent Medicine
DX: I89.0 Lymphedema, not elsewhere classified (principal)
CPT/HCPCS: 29580; 97140; 97163; 97164; 97597; 97598; 97605; 97606; 97760

== ENCOUNTER 2024-08-28 07:43 | Outpatient (CLI) | payer MEDICARE, SELFPAY ==
--- NOTE | 2024-08-28 07:54 | CA_ITS ---
APPROVED REPORT EXAM: Limited 2D Echocardiogram Dispatcher Relay: Francisca Nice RDCS Ht: 5 ft 8 in Wt: 277lbs BSA: 2.35 BP: 152/71 mmHg Indications: LVFXN F/U M-Mode Dimensions RVDd 0.93 cm (0.9-2.6) LA Diam 3.66 cm (1.9-4.0) LVDd 7.50 cm (3.5-5.7) LVDs 5.83 cm (3.5-5.7) IVSd 0.67 cm (0.6-1.1) PWd 0.61 cm (0.6-1.1) EF (Teich) 43.50% FS 22.30% EDV (Teich) 298.30 mL ESV (Teich) 168.50 mL Other Information Study Quality: Fair Conclusion This is a limited TTE to evaluate for LV systolic function. Limited windows were obtained. The left ventricle is normal in size. There is normal LV wall thikness. There is normal global LV systolic function. The septal and anteroseptal LV charlton are mildly hypokinetic. LVEF is 50-55%. Compared to prior study from 06/05/2024, the LV systolic function is improved and is now normal. Electronically signed by : Florence Miller MD 08/28/2024 10:58:52
== END 2024-08-28 23:59 | disposition home or self-care (01) ==
LOC: RT 07:45
PROVIDERS: PCP Internal Medicine Adolescent Medicine; Visit Provider Physician Assistant
DX: I25.10 Atherosclerotic heart disease of native coronary artery without angina pectoris (principal); I50.20 Unspecified systolic (congestive) heart failure
CPT/HCPCS: 93308

== ENCOUNTER 2024-09-04 09:34 | Inpatient (IN) | payer MEDICARE, SELFPAY ==
[2024-09-04] VITALS (19 sets, daily range): BP systolic 103–189; BP diastolic 65–121; PULSE 65–108; RESP 12–24; TEMP 36.6–36.9; O2SAT 93–100; BMI 39.2; BMI 39.4
--- NOTE | 2024-09-04 09:31 | ECG_ITS ---
APPROVED REPORT Exam: Resting ECG HR:92 bpm ECG Measurements Heart Rate 92 AXES RI 167 P 37 QRSd 93 QRS -4 QT 370 T 66 QTc 419 Conclusion SINUS RHYTHM LOW QRS VOLTAGE IN PRECORDIAL LEADS [QRS DEFLECTION < 1.0 mV IN CHEST LEADS] POSSIBLE RIGHT VENTRICULAR CONDUCTION DELAY [RSR (QR) IN V1/V2] BORDERLINE ECG UNCONFIRMED REPORT Electronically signed by : ASHA PLASCENCIA, 09/08/2024 05:51:15
--- NOTE | 2024-09-04 09:37 | HMH.EDGENADL ---
Discharge Plan Disposition Patient Disposition: Admitted Chief Complaint: Nausea/Vomiting/Diarrhea Prescriptions Prescriptions: No Action famotidine 40 mg tablet 40 mg PO DAILY valsartan 80 mg tablet 80 mg PO BID Qty: 60 5RF clopidogrel 75 mg tablet 75 mg PO DAILY Qty: 90 3RF Jardiance 10 mg tablet 10 mg PO DAILY Qty: 30 5RF spironolactone 25 mg tablet 25 mg PO DAILY Qty: 30 5RF atorvastatin 40 mg tablet 40 mg PO HS Qty: 30 5RF furosemide 20 mg tablet 20 mg PO .MWF Patient Comments: TAKE ONE TABLET BY MOUTH ON MONDAYS, WEDNESDAY AND FRIDAYS carvedilol 25 mg tablet 25 mg PO BID Qty: 180 3RF Rx Instructions: must administer with a meal/food tamsulosin 0.4 MG capsule 0.8 mg PO HS levothyroxine 100 mcg tablet 50 mcg PO AM Patient Comments: TAKE 1/2 (ONE-HALF) TABLET BY MOUTH ONCE DAILY aspirin 81 mg Tablet,Delayed Release (Dr/Ec) 81 mg PO DAILY Qty: 30 0RF Referrals Follow up/Referrals: Gasper Montana MD [Primary Care Provider] - See instructions Clinical Impressions Clinical Impression: UGIB (upper gastrointestinal bleed), Acute uremia Instructions Patient Instructions: DI for Diarrhea and Traveler's Diarrhea -- Adult, DI for Diarrhea and Traveler's Diarrhea -- Child, DI for Nausea -- Adult, DI for Nausea -- Child Print Language Print Language: Telugu Discharge ED Provider: Henrik Young General Adult HPI General Chief complaint: Nausea/Vomiting/Diarrhea Stated complaint: n/v/d, weakness Time Seen by Provider: 09/04/24 09:35 History of Present Illness HPI narrative: Patient is a 79-year-old male with past medical history of qyh-wzqigdl-cealryctn diabetes, congestive heart failure, chronic lymphedema lower extremities, obesity, who presents emergency department for evaluation of vomiting, diarrhea, weakness. History is obtained by patient at bedside. Since Wednesday he has had nonbloody vomiting and diarrhea which she is unsure if it is bloody or not ultimately causing him to be weak to the point where he is unable to get up from his chair. He defecated himself on the chair due to inability to rise from the chair. He normally gets around with a rollator and he lives alone which caused him to call 911 for continued evaluation. He has associated epigastric discomfort, it does not go through to his back, he does not have chest pain, no shortness of breath or cough. No other acute complaints at this time. Upon EMS arrival fingerstick was nonactionable. Related Data Home Medications ?Medication ?Instructions ?Recorded ?Confirmed tamsulosin 0.4 mg capsule 0.8 mg PO HS PROSTATE 04/04/18 08/17/24 levothyroxine 100 mcg tablet 50 mcg PO AM 05/30/24 08/17/24 famotidine 40 mg tablet 40 mg PO DAILY 06/12/24 08/17/24 furosemide 20 mg tablet 20 mg PO .MWF 08/17/24 08/17/24 Previous Rx's ?Medication ?Instructions ?Recorded aspirin 81 mg tablet,delayed 81 mg PO DAILY #30 tabs 06/05/24 release atorvastatin 40 mg tablet 40 mg PO HS #30 tabs 07/18/24 clopidogrel 75 mg tablet 75 mg PO DAILY #90 tabs 07/18/24 empagliflozin 10 mg tablet 10 mg PO DAILY #30 tabs 07/18/24 (Jardiance) spironolactone 25 mg tablet 25 mg PO DAILY #30 tabs 07/18/24 valsartan 80 mg tablet 80 mg PO BID #60 tabs 07/18/24 carvedilol 25 mg tablet 25 mg PO BID #180 tabs 08/17/24 Allergies Allergy/AdvReac Type Severity Reaction Status Date / Time Antihistamines - Alkylamine Allergy Mild MADE SKIN Verified 08/17/24 13:25 (ANTIHISTAMINES - ALKYLAMINE) FEEL LIKE ON FIRE NSAIDS (Non-Steroidal AdvReac Severe kidney Verified 08/17/24 13:25 Anti-Inflamma failure [facility] Disclaimer: The information contained in this section may have been updated after the patient was seen, as this information can be updated by other users. Medical History UGIB (upper gastrointestinal bleed) PUD (peptic ulcer disease) Duodenitis Nausea and vomiting Nausea Encounter for laboratory testing for COVID-19 virus Diabetes mellitus Gastroenteritis and colitis, viral Dehydration PICC (peripherally inserted central catheter) in place Diabetic foot Multiple drug resistant organism (MDRO) culture positive Near syncope Cellulitis, leg Ingrowing Toenail Callus of foot Onychoincurvatum Onychodystrophy Pain around toenail, left foot Ingrowing Toenail Cellulitis of right leg Arthritis PAD (peripheral artery disease) HTN (hypertension), benign Heart murmur T2DM (type 2 diabetes mellitus) BPH (benign prostatic hyperplasia) Peripheral vascular disease Surgical History Hx of colonoscopy History of total left hip replacement Family History Other Cancer Heart attack Social History Smoking Status: Never smoker alcohol intake: never substance use type: denies use current occupational status: retired Travel in the last 8 weeks: None household members: none housing: house current occupation: [employer] current occupational exposures/hazards: No caffeine: Yes Other Medical History Have you received the Flu Vaccine for this season: No Have you received the Pneumonia Vaccine: No ROS Obtained: Yes Systems reviewed as appropriate & no additional complaints except as documented Physical Exam General General appearance: alert and in no apparent distress Head Head exam: atraumatic and normocephalic Eye Eye exam: Present PERRL ENT ENT exam: Present mucous membranes moist Neck Neck exam: Present normal inspection Chest Chest inspection: Present normal inspection and symmetric chest wall rise Respiratory Respiratory exam: Present normal lung sounds bilaterally; Absent respiratory distress Cardiovascular Cardiovascular exam: Present regular rate and normal rhythm Abdominal Exam Abdominal exam: Present soft and tenderness (Mild, epigastric, no tenderness in the remainder of the abdomen); Absent guarding or rebound exam: Present other (Lubricator Granulator present, no external hemorrhoids, there is blood at the external anal sphincter.) Extremities Exam Extremities exam: Present normal inspection Neurological Exam Neurological exam: Present alert Psychiatric Psychiatric exam: Present normal affect Skin Skin exam: Present warm and dry Medical Decision Making Medical Records Screening: Per USPSTF and CDC recommendations, given the prevalence of disease in our region, it is our hospital?s policy to screen for HIV and viral Hepatitis for all patients aged 18 and over and those with ongoing risk factors. Real Inquiry Pt receiving controlled substance: No Vital Signs: 09/04/24 09:29 09/04/24 09:30 09/04/24 09:31 Temperature Temperature Source Pulse Rate 89 90 90 Pulse Rate [Right Radial] Respiratory Rate Blood Pressure 189/121 H 144/85 H Blood Pressure [Right Arm] Blood Pressure Mean [Right Arm] 02 Sat by Pulse Oximetry 98 97 100 Oxygen Delivery Method 09/04/24 09:34 09/04/24 09:49 09/04/24 10:00 Temperature 98.0 F Temperature Source Rectal Pulse Rate 92 H 93 H Pulse Rate [Right Radial] 85 Respiratory Rate 20 24 22 Blood Pressure 157/103 H Blood Pressure [Right Arm] 144/85 H Blood Pressure Mean [Right Arm] 104 02 Sat by Pulse Oximetry 99 100 100 Oxygen Delivery Method Room Air 09/04/24 10:30 09/04/24 11:02 09/04/24 11:14 Temperature Temperature Source Pulse Rate 83 103 H 108 H Pulse Rate [Right Radial] Respiratory Rate 15 24 15 Blood Pressure 182/103 H 130/108 H 146/75 H Blood Pressure [Right Arm] Blood Pressure Mean [Right Arm] 02 Sat by Pulse Oximetry 100 93 L 98 Oxygen Delivery Method Room Air Room Air Room Air 09/04/24 11:31 09/04/24 12:00 09/04/24 12:31 Temperature Temperature Source Pulse Rate 104 H 98 H 101 H Pulse Rate [Right Radial] Respiratory Rate 18 17 12 Blood Pressure 139/72 103/84 L 147/72 H Blood Pressure [Right Arm] Blood Pressure Mean [Right Arm] 02 Sat by Pulse Oximetry 98 97 98 Oxygen Delivery Method Room Air Room Air Room Air 09/04/24 13:00 Temperature Temperature Source Pulse Rate 99 H Pulse Rate [Right Radial] Respiratory Rate 18 Blood Pressure 133/73 Blood Pressure [Right Arm] Blood Pressure Mean [Right Arm] 02 Sat by Pulse Oximetry 99 Oxygen Delivery Method Room Air Lab Data Lab Results 09/04/24 09:25: NT-Pro-B Natriuret Pep 2740 H 09/04/24 09:35: WBC 16.9 H, RBC 3.82 L, Hgb 11.0 L, Hct 34.3 L, MCV 89.8, MCH 28.8, MCHC 32.1, RDW 16.9, Plt Count 354, MPV 9.1, Neut % (Auto) 83.8 H, Lymph % (Auto) 8.9 L, [place] % (Auto) 6.0, Eos % (Auto) 0.2, Baso % (Auto) 0.4, Neut # (Auto) 14.2 H, Lymph # (Auto) 1.5, [place] # (Auto) 1.0, Eos # (Auto) 0.0, Baso # (Auto) 0.1, Total Counted 100, Neutrophils % (Manual) 86 H, Band Neutrophils % 5.0, Lymphocytes % (Manual) 6 L, Monocytes % (Manual) 3, Platelet Estimate Normal, RBC Morphology Normal, Sodium 146 H, Potassium 5.2 H, Chloride 110 H, Carbon Dioxide 22, Anion Gap 19.2 H, BUN 83 H, Creatinine 2.20 H, Estimated Creat Clear 46, Estimated GFR 29 L, Est GFR ( Amer) 35 L, Glucose 181 H, Lactate 2.4 H, Calcium 8.4, Magnesium 1.8, Total Bilirubin 0.5, AST 24, ALT 23, Alkaline Phosphatase 111, Troponin I < 0.01, Total Protein 7.3, Albumin 3.9, Globulin 3.4 H, Albumin/Globulin Ratio 1.1, Lipase 75, Stool Occult Blood Negative, Acetone Level None detected 09/04/24 10:02: SARS-CoV-2 (PCR) Not detected, Influenza A Untype (PCR) Not detected, Influenza Type B (PCR) Not detected 09/04/24 10:09: Blood Type A Positive, Antibody Screen Negative 09/04/24 10:20: VBG pH 7.33, VBG pCO2 38.2, VBG pO2 30.7, VBG HCO3 19.6 L, VBG Total CO2 20.8 L, VBG O2 Saturation 54.0, VBG Base Excess -6.3 L, VBG Lactic Acid 2.4 H 09/04/24 09:35 09/04/24 09:35 Orders (Tests/Meds): ED MEDICATIONS Generic Name Dose Route Start Last Admin Trade Name Freq PRN Reason Stop Dose Admin Sodium Chloride 10 ml 09/04/24 11:20 09/04/24 11:22 Sodium Chloride 0.9% 10ml Syr (Rad Only) IV 10/04/24 11:19 10 ml NEEDED PRN Administration Maintain IV Site Discontinued Medications Generic Name Dose Route Start Last Admin Trade Name Freq PRN Reason Stop Dose Admin Lactated Ringer's 500 mls @ 999 mls/hr 09/04/24 09:36 09/04/24 09:57 Lactated Ringer's 500ml IV 09/04/24 10:06 999 mls/hr .Q31M ONE Administration Lactated Ringer's 1,000 mls @ 999 mls/hr 09/04/24 10:14 09/04/24 10:25 Lactated Ringer's 1000 Ml Bag IV 09/04/24 11:14 999 mls/hr .Q1H1M ONE Administration Iopamidol 80 ml 09/04/24 11:20 09/04/24 11:22 Iopamidol-370 (76%);100ml Bottle IV 09/04/24 11:21 80 ml ONCE ONE Administration Ondansetron HCl 4 mg 09/04/24 10:09 09/04/24 10:22 Ondansetron 4mg/2ml Vial IV 09/04/24 10:10 4 mg ONCE ONE Administration Pantoprazole Sodium 40 mg 09/04/24 10:12 09/04/24 10:22 Pantoprazole 40mg Vial IV 09/04/24 10:13 40 mg ONCE ONE Administration Sodium Chloride 50 ml 09/04/24 11:21 09/04/24 11:22 0.9 % Sodium Chloride 50 Ml Vial IV 09/04/24 11:22 50 ml ONCE ONE Administration Sodium Chloride 50 ml 09/04/24 11:22 09/04/24 13:03 0.9 % Sodium Chloride 50 Ml Vial IV 09/04/24 11:23 Not Given ONCE ONE ORDERS Category Date Time Status Type and Screen Stat BBK 09/04/24 10:[address] angio abdomen pelvis Stat Cat Scan 09/04/24 09:56 Completed Consult to Gastroenterology [CONS] Routine Cons 09/04/24 13:05 Active GI consult [Consult to Gastroenterology] [CONS] Routine Cons 09/04/24 13:19 Active Acetone, Serum (Rapid) Stat Lab 09/04/24 09:35 Completed BNP [NT Pro Brain Natriuretic Pep.] Stat Lab 09/04/24 09:25 Completed CBC w/Auto Diff [Complete Blood Count Auto Diff] Stat Lab 09/04/24 09:35 Completed CMP [Comprehensive Metabolic Panel] Stat Lab 09/04/24 09:35 Completed Diarrhea 23 Panel, PCR Stat Lab 09/04/24 10:03 Ordered Lactic Acid Stat Lab 09/04/24 09:35 Completed Lipase Stat Lab 09/04/24 09:35 Completed MG [Magnesium] Stat Lab 09/04/24 09:35 Completed Occult Blood,Stool Stat Lab 09/04/24 09:35 Completed Rapid PCR Covid and Flu A/B Stat Lab 09/04/24 10:02 Completed Trop I [Troponin I] Stat Lab 09/04/24 09:35 Completed Troponin I Q3H Lab 09/04/24 12:45 Ordered Troponin I Q3H Lab 09/04/24 15:45 Ordered Blood Culture Stat Micro 09/04/24 09:58 Received Venous Blood Gas Stat RT 09/04/24 10:20 Completed ECG Data Tracing #1: Independently interpreted by me rate is 92, rhythm is regular, axis is normal, no ST elevation in anatomical contiguous leads, QTc 419 Medical Decision Narrative: In summary patient is 79-year-old male past medical history described above who presents emergency department for evaluation of vomiting, diarrhea. Upon arrival patient is hemodynamically stable, protecting his airway, he does have epigastric discomfort. Upon further examination patient had bright red blood in his depends with clots. Given this differential for lower GI bleed includes diverticulosis, focal arterial bleed, internal hemorrhoids, among others. It may be a brisk upper GI bleed with his epigastric discomfort for which Protonix will be initiated. He does not have any evidence of variceal involvement so empiric ceftriaxone will be deferred. It may be that patient has a viral syndrome on top of this causing his vomiting. Workup will be conducted with hematologic labs, EKG, single troponin, CT angio abdomen pelvis. Initial interventions include gentle crystalloid resuscitation given his history of heart failure. Echocardiogram from 08-28-2024 reviewed by me, patient has global LV systolic function with ejection fraction of 50-55. Given this patient will likely benefit from crystalloid resuscitation initial 500 cc bolus will be administered patient will be reevaluated. Initial workup reviewed by me, leukocytosis of 16.9, hemoglobin roughly stable at 11, no thrombocytopenia. Patient's sodium is 146 up from 137, there is a nonactionable hyperkalemia, there is an acute uremia baseline is in the 30s and 20s and today it is 83. His CKD is stable. Given this current differential includes prerenal azotemia secondary to vomiting however given that his CKD is stable and he has discordant rise in his uremia with epigastric discomfort makes me concerned for brisk upper GI bleed with peptic ulcer. Patient has sugar in the 180s however he is Onikul flows and so VBG and acetone will be obtained given elevated anion gap to rule out euglycemic DKA. VBG reviewed by me, no acidosis, initial troponin undetectably low, BNP is elevated however is improved from prior, lipase normal. Stool occult blood is negative however nursing witnessed multiple clots so I question the utility validity of this. CTA abdomen pelvis abnormal mucosal thickening of the duodenum. I discussed case with Dr. Mello regarding management and he agrees patient will benefit from upper endoscopy urgently. He also recommends continuing Protonix 40 mg twice daily. The case is discussed hospital medicine regarding management they will meet the patient to their service for continued evaluation at this time. Critical Care Critical Care Time Critical Care Time: Yes Attestation: On 09/04/24, the high probability of a clinically significant, sudden or life threatening deterioration of the following system(s) required my full and direct attention, intervention and personal management. The time I documented below is in addition to time spent performing reported procedures but includes the following listed in this critical care notation. Total Time Total Critical Care Time: 35
[2024-09-04 09:52] LABS: Basophils # 0.1 K/mm3 (0-0.2); Basophils % 0.4 % (0.1-2.0); Eosinophils % 0.2 % (0.1-12.0); Hematocrit 34.3 % (42.0-52.0); Lymphocytes # 1.5 K/mm3 (0.7-4.5); Lymphocytes % 8.9 % (10-50); Mean Corpuscular HGB Conc 32.1 g/dL (31.8-35.4); Mean Corpuscular Hemoglobin 28.8 pg (27.0-31.2); Mean Corpuscular Volume 89.8 fl (80-94); Mean Platelet Volume 9.1 fl (7.4-10.4); Neutrophils # 14.2 K/mm3 (1.8-7.8); Neutrophils % 83.8 % (37.0-80.0); Platelet Count 354 K/mm3 (142-424); Red Blood Count 3.82 M/mm3 (4.60-6.20); Red Cell Distribution Width 16.9 % (11.5-17.5); White Blood Count 16.9 K/mm3 (4.8-10.8)
[2024-09-04 09:54] LABS: Albumin Level 3.9 g/dl (3.5-5.0); Chloride 110 mmol/L (98-107); Potassium 5.2 mmoL/L (3.5-5.1); Sodium 146 mmol/L (136-145)
--- NOTE | 2024-09-04 09:56 | CT_ITS ---
FINAL REPORT TECHNIQUE: Pre-and postcontrast images of the abdomen were performed by computed tomography. Extensive 3-D reconstruction images were performed. A CTA was performed. This study was performed with techniques to keep radiation doses as low as reasonably achievable (ALARA). Individualized dose reduction techniques using automated exposure control or adjustment of mA and/or kV according to the patient''s size were employed. CLINICAL HISTORY: LGIB with clots, epigastric discomfot COMPARISON: 09/07/2021 FINDINGS: ABDOMEN: The lung bases are clear. Precontrast images demonstrate no evidence of nephrolithiasis. No adrenal masses are identified. The liver, spleen and pancreas are unremarkable. Gallbladder is present. There is mucosal thickening of the duodenum with mild surrounding stranding. There is streak artifact from left hip prosthesis. Urinary bladder is incompletely distended. CTA: The abdominal aorta is proper caliber. The SMA, celiac axis, and NEY are patent. There is no significant stenosis or calcification. 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 IMPRESSION: Abnormal mucosal thickening of the duodenum, most evident at the second and third portions with a similar appearance to prior exam. Upper endoscopy recommended. 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 Reviewed, Interpreted and Dictated by Lior Magdaleno MD Transcribed by Zully Medina Authenticated and [facility]
[2024-09-04 09:57] LABS: Alanine Aminotransferase 23 U/L (12-78); Albumin/Globulin Ratio 1.1 (1.1-1.8); Alkaline Phosphatase 111 U/L (38-126); Anion Gap 19.2 mEq/L (5-15); Aspartate Amino Transferase 24 U/L (17-59); Bilirubin,Total 0.5 mg/dl (0.2-1.3); Calcium 8.4 mg/dl (8.4-10.2); Carbon Dioxide 22 mmol/L (22.0-30.0); Creatinine Clearance Estimated 46 mL/min (50-200); Estimated Glomerular Filt Rate 29 ml/min (>60); GFR (African American) 35 ML/MIN (>60); Globulin 3.4 g/dL (1.3-3.2); Glucose 181 mg/dl (74-100); Lipase 75 U/L (23-300); MANUAL DIFFERENTIAL MANUAL DIFFERENTIAL (MANUAL DIFF); Total Protein,Serum 7.3 g/dl (6.3-8.2)
[2024-09-04] MEDS: RINGERS SOLUTION,LACTATED 500 ML 999 ML IV (09:57)
[2024-09-04 09:58] LABS: Magnesium 1.8 mg/dl (1.6-2.3)
[2024-09-04 10:01] LABS: Occult Blood,Stool Negative (Negative)
[2024-09-04 10:03] LABS: Blood Urea Nitrogen 83 mg/dl (9-20)
[2024-09-04 10:07] LABS: Coronavirus 19, PCR Not Detected (NotDetected); Influenza A, PCR Not Detected (NotDetected); Influenza B, PCR Not Detected (NotDetected)
[2024-09-04 10:14] LABS: Lactic Acid 2.4 mmol/L (0.7-2.1)
--- NOTE | 2024-09-04 10:15 | PC.NURSE ---
This RN and Dr. Young at bedside for a rectal exam. He also updated pt and family on POC and results thus far.
[2024-09-04 10:16] LABS: Troponin I < 0.01 ng/ml (0.00-0.034)
[2024-09-04] MEDS: ONDANSETRON 4MG/2ML VIAL 4 MG IV (10:22)
[2024-09-04] MEDS: PANTOPRAZOLE 40MG VIAL 40 MG IV ×2 (10:22→21:09)
[2024-09-04] MEDS: LACTATED RINGERS 1000ML 1,000 ML 999 ML IV (10:25)
[2024-09-04 10:26] LABS: Acetone, Serum (Rapid) None Detected (None Detect)
[2024-09-04 10:33] LABS: VBG Base Excess -6.3 mmol/L (-2.4-2.3); VBG HCO3 19.6 mmol/L (23-30); VBG PCO2 38.2 mmol/L (35-51); VBG PH 7.33 mmol/L (7.31-7.41); VBG PO2 30.7 mmol/L (28-40); VBG Total CO2 20.8 mmol/L (23-27)
[2024-09-04 10:35] LABS: Lactate Venous 2.4 mmol/L (0.4-2.0)
--- NOTE | 2024-09-04 10:57 | PC.NURSE ---
pt back to room from ct scan
--- NOTE | 2024-09-04 11:03 | PC.NURSE ---
Patient back from radiology. Given ice chips and a wet wash cloth.
[2024-09-04 11:19] LABS: NT Pro Brain Natriuretic Pep. 2740 pg/mL (0-450)
[2024-09-04] MEDS: IOPAMIDOL-370 (76%);100ML BOTTLE 80 ML IV (11:22)
[2024-09-04] MEDS: SODIUM CHLORIDE 0.9% 10ML SYR (RAD ONLY) 10 ML IV (11:22)
[2024-09-04] MEDS: 0.9 % SODIUM CHLORIDE 50 ML VIAL IV (11:22)
[2024-09-04 12:31] LABS: Lymphocytes % 6 % (10-50); Monocytes % 3 % (2-9); Neutrophils % 86 % (42-76); Total Cells Counted 100
[2024-09-04 12:33] LABS: Platelet Estimate Normal; RBC Morphology Normal
--- NOTE | 2024-09-04 13:20 | PC.NURSE ---
NURSING UNIT COORDINATOR NOTIFIED OF ADMISSION
--- NOTE | 2024-09-04 13:40 | PC.NURSE ---
called report to nuris britton on 2nd floor and answered all questions
--- NOTE | 2024-09-04 13:49 | HMH.PHAINT1 ---
Pharmacy Intervention Comments: MEDICATION RECONCILIATION COMPLETED ON PATIENT USING EXTERNAL FILL HISTORY FROM PHARMACY AND LIST FROM CARDIOLOGY OFFICE. -ADITYA MONTEZ, MARTINEZD
--- NOTE | 2024-09-04 13:53 | PC.NURSE ---
Admission to [facility] is delayed d/t they are in the process of cleaning the room.
[2024-09-04 13:54] LABS: Adenovirus F 40/41, stool Not Detected (NotDetected); Astrovirus Not Detected (NotDetected); Campylobacter Not Detected (NotDetected); Clostridium Difficile A/B, PCR Not Detected (NotDetected); Cryptosporidium Not Detected (NotDetected); Cyclospora Cayetanesis Not Detected (NotDetected); Entamoeba histolytica Not Detected (NotDetected); Enteroaggregative E coli Not Detected (NotDetected); Enteropathogenic E coli Not Detected (NotDetected); Enterotoxigenic E coli Not Detected (NotDetected); Giardia lamblia Not Detected (NotDetected); Plesimonas Shigalloides, PCR Not Detected (NotDetected); Rotavirus A Not Detected (NotDetected); Salmonella, PCR Not Detected (NotDetected); Sapovirus Not Detected (NotDetected); Shiga-like toxin E coli Not Detected (NotDetected); Shigella Enterovasive E coli Not Detected (NotDetected); Vibrio Cholerae Not Detected (NotDetected); Vibrio, PCR Not Detected (NotDetected); Yersinia Entercolitica, PCR Not Detected (NotDetected)
--- NOTE | 2024-09-04 13:54 | PC.NURSE ---
Collected urine & stool sample for diarrhea panel and submitted to the lab
[2024-09-04 14:02] LABS: Reflex Lactic Add Lactic Reflex
[2024-09-04 15:49] LABS: Norovirus Detected (NotDetected)
--- NOTE | 2024-09-04 15:55 | P.HP_ITS ---
History of Present Illness *Admission Date: 09/04/24 *Reason for visit:: Weakness *History of present illness: Riki Mckeon is a 79-year-old male with a medical history significant for HFrEF, NSTEMI/CAD s/p 6 stents, hypothyroidism, BPH who presents for 3 days of worsening weakness in the setting of diarrhea. Patient states diarrhea began over the weekend and has been quite profuse, also endorsed initial nausea vomiting that has since resolved. Workup in the ED significant for WBC 16.9, hemoglobin 11.0, elevated BUN 83 (baseline around 30), sodium 146, AGAP 19.2,. While ED stool FOBT was negative there was witnessed blood clots in patient's stool. Stool PCR revealed norovirus. CT abdomen/pelvis revealed abnormal mucosal thickening in the duodenum, 70% stenosis in the proximal left renal artery. ED discussed case with GI who will perform EGD tomorrow. Case discussed with ED provider and decision was made to admit patient for upper GI bleed. [facility] Disclaimer: The information contained in this section may have been updated after the patient was seen, as this information can be updated by other users. Medical History UGIB (upper gastrointestinal bleed) PUD (peptic ulcer disease) Duodenitis Nausea and vomiting Nausea Encounter for laboratory testing for COVID-19 virus Diabetes mellitus Gastroenteritis and colitis, viral Dehydration PICC (peripherally inserted central catheter) in place Diabetic foot Multiple drug resistant organism (MDRO) culture positive Near syncope Cellulitis, leg Ingrowing Toenail Callus of foot Onychoincurvatum Onychodystrophy Pain around toenail, left foot Ingrowing Toenail Cellulitis of right leg Arthritis PAD (peripheral artery disease) HTN (hypertension), benign Heart murmur T2DM (type 2 diabetes mellitus) BPH (benign prostatic hyperplasia) Peripheral vascular disease Surgical History Hx of colonoscopy History of total left hip replacement Family History Other Cancer Heart attack Social History Smoking Status: Never smoker alcohol intake: never substance use type: denies use current occupational status: retired Travel in the last 8 weeks: None household members: none housing: house current occupation: [employer] current occupational exposures/hazards: No caffeine: Yes Other Medical History Have you received the Flu Vaccine for this season: No Have you received the Pneumonia Vaccine: Yes Meds Home Medications and Allergies Home Medications ?Medication ?Instructions ?Recorded ?Confirmed ?Type tamsulosin 0.4 mg capsule 0.8 mg PO HS 04/04/18 09/04/24 History levothyroxine 100 mcg tablet 50 mcg PO DAILY 05/30/24 09/04/24 History aspirin 81 mg tablet,delayed 81 mg PO DAILY #30 tabs 06/05/24 09/04/24 Rx release atorvastatin 40 mg tablet 40 mg PO HS #30 tabs 07/18/24 09/04/24 Rx clopidogrel 75 mg tablet 75 mg PO DAILY #90 tabs 07/18/24 09/04/24 Rx empagliflozin 10 mg tablet 10 mg PO DAILY #30 tabs 07/18/24 09/04/24 Rx (Jardiance) spironolactone 25 mg tablet 25 mg PO DAILY #30 tabs 07/18/24 09/04/24 Rx carvedilol 25 mg tablet 25 mg PO BID #180 tabs 08/17/24 09/04/24 Rx furosemide 20 mg tablet 20 mg PO MOWEFR 08/17/24 09/04/24 History valsartan 80 mg tablet 80 mg PO BID 09/04/24 09/04/24 History New Prescriptions to Start Prescriptions: Allergies Allergy/AdvReac Type Severity Reaction Status Date / Time Antihistamines - Alkylamine Allergy Mild MADE SKIN Verified 08/17/24 13:25 (ANTIHISTAMINES - ALKYLAMINE) FEEL LIKE ON FIRE NSAIDS (Non-Steroidal AdvReac Severe kidney Verified 08/17/24 13:25 Anti-Inflamma failure Exam Data for Last 24 hours Vital signs and Labs for Last 24 Hours: Temp Pulse Resp BP Pulse Ox O2 Del Method 98.5 F 100 H 15 152/75 H 99 Room Air 09/04/24 13:41 09/04/24 14:00 09/04/24 14:00 09/04/24 14:00 09/04/24 14:00 09/04/24 15:00 Laboratory Results - last 24 hr 09/04/24 09:25: NT-Pro-B Natriuret Pep 2740 H 09/04/24 09:35: WBC 16.9 H, RBC 3.82 L, Hgb 11.0 L, Hct 34.3 L, MCV 89.8, MCH 28.8, MCHC 32.1, RDW 16.9, Plt Count 354, MPV 9.1, Neut % (Auto) 83.8 H, Lymph % (Auto) 8.9 L, [place] % (Auto) 6.0, Eos % (Auto) 0.2, Baso % (Auto) 0.4, Neut # (Auto) 14.2 H, Lymph # (Auto) 1.5, [place] # (Auto) 1.0, Eos # (Auto) 0.0, Baso # (Auto) 0.1, Total Counted 100, Neutrophils % (Manual) 86 H, Band Neutrophils % 5.0, Lymphocytes % (Manual) 6 L, Monocytes % (Manual) 3, Platelet Estimate Normal, RBC Morphology Normal, Sodium 146 H, Potassium 5.2 H, Chloride 110 H, Carbon Dioxide 22, Anion Gap 19.2 H, BUN 83 H, Creatinine 2.20 H, Estimated Creat Clear 46, Estimated GFR 29 L, Est GFR ( Amer) 35 L, Glucose 181 H, Lactate 2.4 H, Calcium 8.4, Magnesium 1.8, Total Bilirubin 0.5, AST 24, ALT 23, Alkaline Phosphatase 111, Troponin I < 0.01, Total Protein 7.3, Albumin 3.9, Globulin 3.4 H, Albumin/Globulin Ratio 1.1, Lipase 75, Stool Occult Blood Negative, Acetone Level None detected 09/04/24 10:02: SARS-CoV-2 (PCR) Not detected, Influenza A Untype (PCR) Not detected, Influenza Type B (PCR) Not detected 09/04/24 10:09: Blood Type A Positive, Antibody Screen Negative 09/04/24 10:20: VBG pH 7.33, VBG pCO2 38.2, VBG pO2 30.7, VBG HCO3 19.6 L, VBG Total CO2 20.8 L, VBG O2 Saturation 54.0, VBG Base Excess -6.3 L, VBG Lactic Acid 2.4 H 09/04/24 13:50: Stl Aeromonas (PCR) Not detected, Stl C. cayetanensis PCR Not detected, Stool Rotavirus (PCR) Not detected, Stl Adenov F 40/41 PCR Not d etected, Stool Astrovirus (PCR) Not detected, Stool Campylobacter PCR Not detected, Stl C.difficile Tox PCR Not detected, Stool Cryptosporidium PCR Not detected, Stl E.coli Shiga Tox PCR Not detected, Stool E coli O157 PCR Not detected, Stl Enterotoxigenic E PCR Not detected, Stool EPEC (PCR) Not detected, Stool EAEC (PCR) Not detected, Stl E. histolytica PCR Not detected, Stool Giardia Lamblia PCR Not detected, Stool Salmonella PCR Not detected, Stool Sapovirus (PCR) Not detected, Stl P. shigelloides PCR Not detected, Stl Shigella/EIEC PCR Not detected, St Y.enterocolitica PCR Not detected, Stool Vibrio (PCR) Not detected, Stl Vibrio cholerae PCR Not detected, Stl Norovirus GI/GII PCR Detected A 09/04/24 15:05: Lactate 2.0 I & O for Last 24 hours: Intake & Output 09/01/24 09/02/24 09/03/24 09/04/24 23:59 23:59 23:59 23:59 Weight 117.8 kg Constitutional Constitutional: no acute distress *Routine HEENT Exam Head: Present normocephalic Eye: Present EOMI and PERRL ENT: Present mucous membranes moist *Routine Neck Exam Neck: Present supple; Absent lymphadenopathy *Routine Respiratory Exam Respiratory: Present CTA bilaterally *Routine Cardiovascular Exam Cardiovascular: Present RRR *Routine Abdominal Exam Abdominal: Present soft and normoactive bowel sounds; Absent tenderness *Routine Rectal Exam Rectal:: deferred *Routine Genitalia Exam Genitalia:: deferred *Routine Extremities Exam Extremities: Present edema; Absent cyanosis or clubbing Comments: Chronic venous stasis skin changes. *Routine Skin Exam Skin: Present warm; Absent rash *Routine Neurological Exam Neurological: Present alert and oriented X3 Assessment and Plan *Assessment and plan (1) Acute uremia: Status: Acute Category: Medical Code(s): N19 - Unspecified kidney failure (2) UGIB (upper gastrointestinal bleed): Status: Acute Category: Medical Code(s): K92.2 - Gastrointestinal hemorrhage, unspecified (3) CAD (coronary artery disease): Status: Acute Qualifiers: Coronary Disease-Associated Artery/Lesion type: [place] artery [place] vs. transplanted heart: [place] heart Associated angina: without angina Qualified Code(s): I25.10 - Atherosclerotic heart disease of [place] coronary artery without angina pectoris Category: Medical Code(s): I25.10 - Atherosclerotic heart disease of [place] coronary artery without angina pectoris (4) HFrEF (heart failure with reduced ejection fraction): Status: Acute Category: Medical Code(s): I50.20 - Unspecified systolic (congestive) heart failure Plan Riki Mckeon is a 79-year-old male with a medical history significant for HFrEF, NSTEMI/CAD s/p 6 stents, hypothyroidism, BPH who presents for 3 days of worsening weakness in the setting of diarrhea. Patient states diarrhea began over the weekend and has been quite profuse, also endorsed initial nausea vomiting that has since resolved. Workup in the ED significant for WBC 16.9, hemoglobin 11.0, elevated BUN 83 (baseline around 30), sodium 146, AGAP 19.2,. While ED stool FOBT was negative there was witnessed blood clots in patient's stool. Stool PCR revealed norovirus. CT abdomen/pelvis revealed abnormal mucosal thickening in the duodenum, 70% stenosis in the proximal left renal artery. ED discussed case with GI who will perform EGD tomorrow. Case discussed with ED provider and decision was made to admit patient for upper GI bleed. #Upper GI bleed #Acute on chronic anemia ? Hemoglobin dropped from 11.0-8.6 tonight. BUN bumped 83-98. Patient had about 3 loose diarrhea episodes with blood in them. Positive for norovirus. ? Currently tachycardic to 100 but blood pressure 141/74. Looks comfortable. ? Currently on DAPT for recent NSTEMI with stents. ? CTA shows duodenal mucosal wall thickening. ? IV Protonix drip. ? GI consulted, will perform EGD in the morning. ? Transfuse pRBC if hemoglobin less than 8 given recent NSTEMI with stents. ? Will go ahead and transfuse 1 unit PRBC now given significant downtrend and significant cardiac comorbidities. #Sepsis #Norovirus gastroenteritis ? WBC 19.0 with neutrophilic predominance with tachycardia. ? CXR, CT abdomen/pelvis did not show infectious findings. ? Follow-up UA. ? Zosyn day 1. #HFrEF #CAD s/p 6 stents ? Hold DAPT, diuretics, nephrotoxic agents at this time given GI bleed. ? Resume GDMT once appropriate after EGD. #Hypothyroidism ? Continue home levothyroxine 100 mcg. ? Follow-up TSH, T4. #BPH ? Resume home tamsulosin. Full code DVT prophylaxis: SCDs
--- NOTE | 2024-09-04 15:58 | XR_ITS ---
PROCEDURE INFORMATION: Exam: XR Chest Exam date and time: 09/04/2024 4:09 PM Age: 79 years old Clinical indication: Other: Sepsis TECHNIQUE: Imaging protocol: Radiologic exam of the chest. Views: 1 view. COMPARISON: CT ANGIO CHEST PE PROTOCOL 05/30/2024 2:41 PM FINDINGS: Airway: Airways are patent. Lungs: Lungs are clear. Pleural spaces: No pleural effusions or pneumothorax. Heart/Mediastinum: No cardiomegaly. Vasculature: Calcified aortic knob. Bones/joints: No acute skeletal abnormality or aggressive osseous lesion. Soft tissues: No acute soft tissue findings. IMPRESSION: No acute thoracic pathology.
--- NOTE | 2024-09-04 17:59 | PC.NURSE ---
Pt sitting up in bed eating dinner. He is A&O x4. On RA. Has had 3 loose stools this shift. Dark with blood noted to stool. Consent for EGD signed and on chart. VSS. Call light within reach.
[2024-09-04] MEDS: TAMSULOSIN 0.4MG CAPSULE 0.8 MG PO (21:09)
[2024-09-04] MEDS: CARVEDILOL 25MG TABLET 25 MG PO (21:09)
[2024-09-04 21:31] LABS: Basophils # 0.1 K/mm3 (0-0.2); Basophils % 0.3 % (0.1-2.0); Eosinophils % 0.2 % (0.1-12.0); Lymphocytes # 2.6 K/mm3 (0.7-4.5); Lymphocytes % 13.8 % (10-50); Mean Corpuscular HGB Conc 31.9 g/dL (31.8-35.4); Mean Corpuscular Hemoglobin 29.2 pg (27.0-31.2); Mean Corpuscular Volume 91.5 fl (80-94); Mean Platelet Volume 9.5 fl (7.4-10.4); Monocytes # 1.9 K/mm3 (0.1-1.0); Monocytes % 9.8 % (1.7-9.3); Neutrophils # 14.3 K/mm3 (1.8-7.8); Neutrophils % 75.1 % (37.0-80.0); Platelet Count 305 K/mm3 (142-424); Red Blood Count 2.95 M/mm3 (4.60-6.20); Red Cell Distribution Width 17.1 % (11.5-17.5)
[2024-09-04 21:35] LABS: MANUAL DIFFERENTIAL MANUAL DIFFERENTIAL (MANUAL DIFF)
[2024-09-04 21:36] LABS: Hemoglobin 8.6 g/dL (14.1-18.0)
[2024-09-04 21:38] LABS: Chloride 110 mmol/L (98-107); Potassium 4.8 mmoL/L (3.5-5.1); Sodium 141 mmol/L (136-145)
[2024-09-04 21:40] LABS: Creatinine Clearance Estimated 48 mL/min (50-200); Estimated Glomerular Filt Rate 31 ml/min (>60); GFR (African American) 37 ML/MIN (>60)
[2024-09-04 21:41] LABS: Anion Gap 17.8 mEq/L (5-15); Calcium 7.7 mg/dl (8.4-10.2); Carbon Dioxide 18 mmol/L (22.0-30.0); Glucose 156 mg/dl (74-100)
[2024-09-04 21:55] LABS: Blood Urea Nitrogen 98 mg/dl (9-20)
[2024-09-04 23:05] LABS: Anisocytosis 2+; Lymphocytes % 12 % (10-50); Macrocytosis 1+; Microcytosis 1+; Monocytes % 7 % (2-9); Neutrophils % 81 % (42-76); Platelet Estimate Normal; Spherocytes 1+; Total Cells Counted 100
[2024-09-04] MEDS: PIPERCILLIN/TAZO 3.375 GM in 0.9 % SODIUM CHLORIDE 50 ML IV (23:39)
[2024-09-04] MEDS: 0.9 % SODIUM CHLORIDE 1000ML 1,000 ML 75 ML IV (23:39)
[2024-09-05] VITALS (38 sets, daily range): BP systolic 98–137; BP diastolic 48–88; PULSE 53–99; RESP 14–20; TEMP 36.1–36.9; O2SAT 94–100; BMI 39.5
--- NOTE | 2024-09-05 04:19 | PC.NURSE ---
79 yo male pt has been A/O x 3. He has not been OOB and has used urinal to void, and brief due to incont BM. He has had 2 large bloody Bms this shift. He has denied pain, discomfort or SOA. 1 unit of blood given, pt tolerated well. Pt has been NPO since [place] for plan for EGD this am
[2024-09-05] MEDS: PIPERCILLIN/TAZO 3.375 GM in 0.9 % SODIUM CHLORIDE 50 ML IV ×3 (05:16→21:25)
[2024-09-05] MEDS: PANTOPRAZOLE SODIUM 80 MG in 0.9 % SODIUM CHLORIDE 100 ML 10 MG IV (06:05)
[2024-09-05 08:08] LABS: Basophils # 0.1 K/mm3 (0-0.2); Basophils % 0.5 % (0.1-2.0); Eosinophils # 0.2 K/mm3 (0.0-0.4); Hematocrit 24.8 % (42.0-52.0); Hemoglobin 8.1 g/dL (14.1-18.0); Lymphocytes # 2.7 K/mm3 (0.7-4.5); Lymphocytes % 16.5 % (10-50); Mean Corpuscular HGB Conc 32.7 g/dL (31.8-35.4); Mean Corpuscular Volume 88.9 fl (80-94); Mean Platelet Volume 9.6 fl (7.4-10.4); Monocytes # 1.4 K/mm3 (0.1-1.0); Monocytes % 8.5 % (1.7-9.3); Neutrophils # 11.9 K/mm3 (1.8-7.8); Neutrophils % 72.7 % (37.0-80.0); Platelet Count 258 K/mm3 (142-424); Red Blood Count 2.79 M/mm3 (4.60-6.20); Red Cell Distribution Width 15.8 % (11.5-17.5); White Blood Count 16.3 K/mm3 (4.8-10.8)
[2024-09-05 08:12] LABS: MANUAL DIFFERENTIAL MANUAL DIFFERENTIAL (MANUAL DIFF)
[2024-09-05 08:16] LABS: Alanine Aminotransferase 17 U/L (12-78); Albumin/Globulin Ratio 1.2 (1.1-1.8); Alkaline Phosphatase 74 U/L (38-126); Aspartate Amino Transferase 21 U/L (17-59); Bilirubin,Total 0.5 mg/dl (0.2-1.3); Calcium 7.8 mg/dl (8.4-10.2); Carbon Dioxide 22 mmol/L (22.0-30.0); Chloride 110 mmol/L (98-107); Creatinine Clearance Estimated 40 mL/min (50-200); Estimated Glomerular Filt Rate 25 ml/min (>60); GFR (African American) 30 ML/MIN (>60); Globulin 2.6 g/dL (1.3-3.2); Glucose 110 mg/dl (74-100); Magnesium 1.8 mg/dl (1.6-2.3); Sodium 139 mmol/L (136-145); Total Protein,Serum 5.6 g/dl (6.3-8.2)
[2024-09-05 08:19] LABS: Blood Urea Nitrogen 103 mg/dl (9-20)
[2024-09-05 08:25] LABS: NT Pro Brain Natriuretic Pep. 1320 pg/mL (0-450)
[2024-09-05 08:46] LABS: Thyroid Stimulating Hormone 5.44 uIU/mL (0.465-4.68)
[2024-09-05 08:57] LABS: Iron 47 ug/dL (49-181)
[2024-09-05 09:02] LABS: Lymphocytes % 35 % (10-50); Monocytes % 4 % (2-9); Neutrophils % 61 % (42-76); Total Cells Counted 100
[2024-09-05 09:03] LABS: Free T4 (Free Thyroxine) 0.89 ng/dl (0.78-2.19); RBC Morphology Normal
[2024-09-05 09:04] LABS: Platelet Estimate Normal
[2024-09-05 09:07] LABS: Total Iron Binding Capacity 271 ug/dL (261-462)
[2024-09-05] MEDS: LEVOTHYROXINE 50MCG (0.05MG) TAB 50 MCG PO (09:24)
[2024-09-05] MEDS: CARVEDILOL 25MG TABLET 25 MG PO ×2 (09:24→21:24)
[2024-09-05 09:34] LABS: Ferritin 49.5 ng/ml (17.9-464)
--- NOTE | 2024-09-05 09:40 | [facility].PTWOUND ---
Rehab Inpt Wound Evaluation Rehab IP Wound Evaluation Start: 09/04/24 16:14 Freq: ONCE Status: Active Protocol: Document 09/05/24 09:38 PAWAN (Rec: 09/05/24 09:40 PAWAN [id number]) Rehab PT Wound Assessment Subjective Subjective 79-year-old male with a medical history significant for HFrEF, NSTEMI/CAD s/p 6 stents, hypothyroidism, BPH who presents for 3 days of worsening weakness in the setting of diarrhea. Found to be positive for norovirus. PT wound consult entered due to low lizet score upon admission, but pt currently does not have any wounds. No current needs for inpatient PT wound care. Thank you for involving the wound care team in the care of this patient. Eval Complexity Eval Charge Codes 18099 - Low Complexity PHYSICIAN CERTIFICATION: I certify the specified therapy services for Riki Mckeon are required, authorized, and reviewed every 30 days.
--- NOTE | 2024-09-05 09:57 | EXP.GE.CONS ---
History of Present Illness *Admission Date: 09/04/24 *History of present illness: Mr. Mckeon is a 79-year-old male with a medical history significant for HFrEF, NSTEMI/CAD s/p 6 stents, hypothyroidism, BPH who presents for 3 days of worsening weakness in the setting of diarrhea. Patient states diarrhea began over the weekend and has been quite profuse, also endorsed initial nausea vomiting that has since resolved. Workup in the ED significant for WBC 16.9, hemoglobin 11.0, elevated BUN 83 (baseline around 30), sodium 146, AGAP 19.2,. While ED stool FOBT was negative there was witnessed blood clots in patient's stool. Stool PCR revealed norovirus. CT abdomen/pelvis revealed abnormal mucosal thickening in the duodenum, 70% stenosis in the proximal left renal artery. ED discussed case with me for EGD today. Case discussed with ED provider and decision was made to admit patient for upper GI bleed. Overnight, the patient did have 1 unit of PRBCs transfused. His hemoglobin and hematocrit yesterday initially was 11.0 and dropped to 8.6 at 9:20 PM labs. He received a blood transfusion and his hemoglobin/hematocrit this morning were 8.1 and 24.8. He also had a rise in BUN but does have some renal insufficiency. [facility] Disclaimer: The information contained in this section may have been updated after the patient was seen, as this information can be updated by other users. Medical History UGIB (upper gastrointestinal bleed) PUD (peptic ulcer disease) Duodenitis Nausea and vomiting Nausea Encounter for laboratory testing for COVID-19 virus Diabetes mellitus Gastroenteritis and colitis, viral Dehydration PICC (peripherally inserted central catheter) in place Diabetic foot Multiple drug resistant organism (MDRO) culture positive Near syncope Cellulitis, leg Ingrowing Toenail Callus of foot Onychoincurvatum Onychodystrophy Pain around toenail, left foot Ingrowing Toenail Cellulitis of right leg Arthritis PAD (peripheral artery disease) HTN (hypertension), benign Heart murmur T2DM (type 2 diabetes mellitus) BPH (benign prostatic hyperplasia) Peripheral vascular disease Surgical History Hx of colonoscopy History of total left hip replacement Family History Other Cancer Heart attack Social History Smoking Status: Never smoker alcohol intake: never substance use type: denies use current occupational status: retired Travel in the last 8 weeks: None household members: none housing: house current occupation: [employer] current occupational exposures/hazards: No caffeine: Yes Meds Home Medications and Allergies Home Medications ?Medication ?Instructions ?Recorded ?Confirmed ?Type tamsulosin 0.4 mg capsule 0.8 mg PO HS 04/04/18 09/04/24 History levothyroxine 100 mcg tablet 50 mcg PO DAILY 05/30/24 09/04/24 History aspirin 81 mg tablet,delayed 81 mg PO DAILY #30 tabs 06/05/24 09/04/24 Rx release atorvastatin 40 mg tablet 40 mg PO HS #30 tabs 07/18/24 09/04/24 Rx clopidogrel 75 mg tablet 75 mg PO DAILY #90 tabs 07/18/24 09/04/24 Rx empagliflozin 10 mg tablet 10 mg PO DAILY #30 tabs 07/18/24 09/04/24 Rx (Jardiance) spironolactone 25 mg tablet 25 mg PO DAILY #30 tabs 07/18/24 09/04/24 Rx carvedilol 25 mg tablet 25 mg PO BID #180 tabs 08/17/24 09/04/24 Rx furosemide 20 mg tablet 20 mg PO MOWEFR 08/17/24 09/04/24 History valsartan 80 mg tablet 80 mg PO BID 09/04/24 09/04/24 History New Prescriptions to Start Prescriptions: Allergies Allergy/AdvReac Type Severity Reaction Status Date / Time Antihistamines - Alkylamine Allergy Mild MADE SKIN Verified 08/17/24 13:25 (ANTIHISTAMINES - ALKYLAMINE) FEEL LIKE ON FIRE NSAIDS (Non-Steroidal AdvReac Severe kidney Verified 08/17/24 13:25 Anti-Inflamma failure Exam (Inpt) Vital signs and Labs for Last 24 Hours: Temp Pulse Resp BP Pulse Ox O2 Del Method 98.1 F 77 16 122/60 94 L Room Air 09/05/24 08:00 09/05/24 08:00 09/05/24 08:00 09/05/24 08:00 09/05/24 08:00 09/05/24 06:58 Laboratory Results - last 24 hr 09/04/24 09:25: NT-Pro-B Natriuret Pep 2740 H 09/04/24 09:35: WBC 16.9 H, RBC 3.82 L, Hgb 11.0 L, Hct 34.3 L, MCV 89.8, MCH 28.8, MCHC 32.1, RDW 16.9, Plt Count 354, MPV 9.1, Neut % (Auto) 83.8 H, Lymph % (Auto) 8.9 L, Sebastian % (Auto) 6.0, Eos % (Auto) 0.2, Baso % (Auto) 0.4, Neut # (Auto) 14.2 H, Lymph # (Auto) 1.5, Sebastian # (Auto) 1.0, Eos # (Auto) 0.0, Baso # (Auto) 0.1, Total Counted 100, Neutrophils % (Manual) 86 H, Band Neutrophils % 5.0, Lymphocytes % (Manual) 6 L, Monocytes % (Manual) 3, Platelet Estimate Normal, RBC Morphology Normal, Sodium 146 H, Potassium 5.2 H, Chloride 110 H, Carbon Dioxide 22, Anion Gap 19.2 H, BUN 83 H, Creatinine 2.20 H, Estimated Creat Clear 46, Estimated GFR 29 L, Est GFR ( Amer) 35 L, Glucose 181 H, Lactate 2.4 H, Calcium 8.4, Magnesium 1.8, Total Bilirubin 0.5, AST 24, ALT 23, Alkaline Phosphatase 111, Troponin I < 0.01, Total Protein 7.3, Albumin 3.9, Globulin 3.4 H, Albumin/Globulin Ratio 1.1, Lipase 75, Stool Occult Blood Negative, Acetone Level None detected 09/04/24 10:02: SARS-CoV-2 (PCR) Not detected, Influenza A Untype (PCR) Not detected, Influenza Type B (PCR) Not detected 09/04/24 10:09: Blood Type A Positive, Antibody Screen Negative, Crossmatch (AHG) See Detail 09/04/24 10:20: VBG pH 7.33, VBG pCO2 38.2, VBG pO2 30.7, VBG HCO3 19.6 L, VBG Total CO2 20.8 L, VBG O2 Saturation 54.0, VBG Base Excess -6.3 L, VBG Lactic Acid 2.4 H 09/04/24 13:50: Stl Aeromonas (PCR) Not detected, Stl C. cayetanensis PCR Not detected, Stool Rotavirus (PCR) Not detected, Stl Adenov F 40/41 PCR Not detected, Stool Astrovirus (PCR) Not detected, Stool Campylobacter PCR Not detected, Stl C.difficile Tox PCR Not detected, Stool Cryptosporidium PCR Not detected, Stl E.coli Shiga Tox PCR Not detected, Stool E coli O157 PCR Not detected, Stl Enterotoxigenic E PCR Not detected, Stool EPEC (PCR) Not detected, Stool EAEC (PCR) Not detected, Stl E. histolytica PCR Not detected, Stool Giardia Lamblia PCR Not detected, Stool Salmonella PCR Not detected, Stool Sapovirus (PCR) Not detected, Stl P. shigelloides PCR Not detected, Stl Shigella/EIEC PCR Not detected, St Y.enterocolitica PCR Not detected, Stool Vibrio (PCR) Not detected, Stl Vibrio cholerae PCR Not detected, Stl Norovirus GI/GII PCR Detected A 09/04/24 15:05: Lactate 2.0 09/04/24 21:20: WBC 19.0 H, RBC 2.95 L, Hgb 8.6 L D, Hct 27.0 L, MCV 91.5, MCH 29.2, MCHC 31.9, RDW 17.1, Plt Count 305, MPV 9.5, Neut % (Auto) 75.1, Lymph % (Auto) 13.8, Sebastian % (Auto) 9.8 H, Eos % (Auto) 0.2, Baso % (Auto) 0.3, Neut # (Auto) 14.3 H, Lymph # (Auto) 2.6, Sebastian # (Auto) 1.9 H, Eos # (Auto) 0.0, Baso # (Auto) 0.1, Total Counted 100, Neutrophils % (Manual) 81 H, Lymphocytes % (Manual) 12, Monocytes % (Manual) 7, Platelet Estimate Normal, RBC Morphology Not Reportable, Anisocytosis 2+, Microcytosis 1+, Macrocytosis 1+, Spherocytes 1+, Sodium 141, Potassium 4.8, Chloride 110 H, Carbon Dioxide 18 L, Anion Gap 17.8 H, BUN 98 H, Creatinine 2.10 H, Estimated Creat Clear 48, Estimated GFR 31 L, Est GFR ( Amer) 37 L, Glucose 156 H, Calcium 7.7 L 09/05/24 07:50: WBC 16.3 H, RBC 2.79 L, Hgb 8.1 L, Hct 24.8 L, MCV 88.9, MCH 29.0, MCHC 32.7, RDW 15.8, Plt Count 258, MPV 9.6, Neut % (Auto) 72.7, Lymph % (Auto) 16.5, Sebastian % (Auto) 8.5, Eos % (Auto) 1.0, Baso % (Auto) 0.5, Neut # (Auto) 11.9 H, Lymph # (Auto) 2.7, Sebastian # (Auto) 1.4 H, Eos # (Auto) 0.2, Baso # (Auto) 0.1, Total Counted 100, Neutrophils % (Manual) 61, Lymphocytes % (Manual) 35, Monocytes % (Manual) 4, Platelet Estimate Normal, RBC Morphology Normal, Sodium 139, Potassium 5.0, Chloride 110 H, Carbon Dioxide 22, Anion Gap 12.0, BUN 103 H*, Creatinine 2.50 H, Estimated Creat Clear 40, Estimated GFR 25 L, Est GFR ( Amer) 30 L, Glucose 110 H D, Calcium 7.8 L, Magnesium 1.8, Iron 47 L, TIBC 271, Iron Saturation 17.15490, Ferritin 49.5, Total Bilirubin 0.5, AST 21, ALT 17 D, Alkaline Phosphatase 74, NT-Pro-B Natriuret Pep 1320 H, Total Protein 5.6 L, Albumin 3.0 L D, Globulin 2.6, Albumin/Globulin Ratio 1.2, TSH 5.44 H, Free T4 0.89 09/05/24 21:52: Blood Type Confirm A Positive I & O for Labs for Last 24 Hours: Intake & Output 09/02/24 09/03/24 09/04/24 09/05/24 23:59 23:59 23:59 23:59 Intake Total 360 / 360 250 / 250 Output Total 200 / 200 Balance 160 / 160 250 / 250 Weight 259 lb 11.272 oz 260 lb 12.8 oz Results Labs 09/05/24 07:50 09/05/24 07:50 Labs: Laboratory Results - last 24 hr 09/04/24 09:25: NT-Pro-B Natriuret Pep 2740 H 09/04/24 09:35: WBC 16.9 H, RBC 3.82 L, Hgb 11.0 L, Hct 34.3 L, MCV 89.8, MCH 28.8, MCHC 32.1, RDW 16.9, Plt Count 354, MPV 9.1, Neut % (Auto) 83.8 H, Lymph % (Auto) 8.9 L, Sebastian % (Auto) 6.0, Eos % (Auto) 0.2, Baso % (Auto) 0.4, Neut # (Auto) 14.2 H, Lymph # (Auto) 1.5, Sebastian # (Auto) 1.0, Eos # (Auto) 0.0, Baso # (Auto) 0.1, Total Counted 100, Neutrophils % (Manual) 86 H, Band Neutrophils % 5.0, Lymphocytes % (Manual) 6 L, Monocytes % (Manual) 3, Platelet Estimate Normal, RBC Morphology Normal, Sodium 146 H, Potassium 5.2 H, Chloride 110 H, Carbon Dioxide 22, Anion Gap 19.2 H, BUN 83 H, Creatinine 2.20 H, Estimated Creat Clear 46, Estimated GFR 29 L, Est GFR ( Amer) 35 L, Glucose 181 H, Lactate 2.4 H, Calcium 8.4, Magnesium 1.8, Total Bilirubin 0.5, AST 24, ALT 23, Alkaline Phosphatase 111, Troponin I < 0.01, Total Protein 7.3, Albumin 3.9, Globulin 3.4 H, Albumin/Globulin Ratio 1.1, Lipase 75, Stool Occult Blood Negative, Acetone Level None detected 09/04/24 10:02: SARS-CoV-2 (PCR) Not detected, Influenza A Untype (PCR) Not detected, Influenza Type B (PCR) Not detected 09/04/24 10:09: Blood Type A Positive, Antibody Screen Negative, Crossmatch (AHG) See Detail 09/04/24 10:20: VBG pH 7.33, VBG pCO2 38.2, VBG pO2 30.7, VBG HCO3 19.6 L, VBG Total CO2 20.8 L, VBG O2 Saturation 54.0, VBG Base Excess -6.3 L, VBG Lactic Acid 2.4 H 09/04/24 13:50: Stl Aeromonas (PCR) Not detected, Stl C. cayetanensis PCR Not detected, Stool Rotavirus (PCR) Not detected, Stl Adenov F 40/41 PCR Not detected, Stool Astrovirus (PCR) Not detected, Stool Campylobacter PCR Not detected, Stl C.difficile Tox PCR Not detected, Stool Cryptosporidium PCR Not detected, Stl E.coli Shiga Tox PCR Not detected, Stool E coli O157 PCR Not detected, Stl Enterotoxigenic E PCR Not detected, Stool EPEC (PCR) Not detected, Stool EAEC (PCR) Not detected, Stl E. histolytica PCR Not detected, Stool Giardia Lamblia PCR Not detected, Stool Salmonella PCR Not detected, Stool Sapovirus (PCR) Not detected, Stl P. shigelloides PCR Not detected, Stl Shigella/EIEC PCR Not detected, St Y.enterocolitica PCR Not detected, Stool Vibrio (PCR) Not detected, Stl Vibrio cholerae PCR Not detected, Stl Norovirus GI/GII PCR Detected A 09/04/24 15:05: Lactate 2.0 09/04/24 21:20: WBC 19.0 H, RBC 2.95 L, Hgb 8.6 L D, Hct 27.0 L, MCV 91.5, MCH 29.2, MCHC 31.9, RDW 17.1, Plt Count 305, MPV 9.5, Neut % (Auto) 75.1, Lymph % (Auto) 13.8, Sebastian % (Auto) 9.8 H, Eos % (Auto) 0.2, Baso % (Auto) 0.3, Neut # (Auto) 14.3 H, Lymph # (Auto) 2.6, Sebastian # (Auto) 1.9 H, Eos # (Auto) 0.0, Baso # (Auto) 0.1, Total Counted 100, Neutrophils % (Manual) 81 H, Lymphocytes % (Manual) 12, Monocytes % (Manual) 7, Platelet Estimate Normal, RBC Morphology Not Reportable, Anisocytosis 2+, Microcytosis 1+, Macrocytosis 1+, Spherocytes 1+, Sodium 141, Potassium 4.8, Chloride 110 H, Carbon Dioxide 18 L, Anion Gap 17.8 H, BUN 98 H, Creatinine 2.10 H, Estimated Creat Clear 48, Estimated GFR 31 L, Est GFR ( Amer) 37 L, Glucose 156 H, Calcium 7.7 L 09/05/24 07:50: WBC 16.3 H, RBC 2.79 L, Hgb 8.1 L, Hct 24.8 L, MCV 88.9, MCH 29.0, MCHC 32.7, RDW 15.8, Plt Count 258, MPV 9.6, Neut % (Auto) 72.7, Lymph % (Auto) 16.5, Sebastian % (Auto) 8.5, Eos % (Auto) 1.0, Baso % (Auto) 0.5, Neut # (Auto) 11.9 H, Lymph # (Auto) 2.7, Sebastian # (Auto) 1.4 H, Eos # (Auto) 0.2, Baso # (Auto) 0.1, Total Counted 100, Neutrophils % (Manual) 61, Lymphocytes % (Manual) 35, Monocytes % (Manual) 4, Platelet Estimate Normal, RBC Morphology Normal, Sodium 139, Potassium 5.0, Chloride 110 H, Carbon Dioxide 22, Anion Gap 12.0, BUN 103 H*, Creatinine 2.50 H, Estimated Creat Clear 40, Estimated GFR 25 L, Est GFR ( Amer) 30 L, Glucose 110 H D, Calcium 7.8 L, Magnesium 1.8, Iron 47 L, TIBC 271, Iron Saturation 17.57446, Ferritin 49.5, Total Bilirubin 0.5, AST 21, ALT 17 D, Alkaline Phosphatase 74, NT-Pro-B Natriuret Pep 1320 H, Total Protein 5.6 L, Albumin 3.0 L D, Globulin 2.6, Albumin/Globulin Ratio 1.2, TSH 5.44 H, Free T4 0.89 09/05/24 21:52: Blood Type Confirm A Positive Assessment and Plan *Assessment and plan (1) UGIB (upper gastrointestinal bleed): Status: Acute Category: Medical Code(s): K92.2 - Gastrointestinal hemorrhage, unspecified (2) Blood clots in stool: Status: Acute Category: Medical Code(s): K92.1 - Melena (3) Acute anemia: Status: Acute Category: Medical Code(s): D64.9 - Anemia, unspecified (4) Norovirus: Status: Acute Category: Medical Code(s): A08.11 - Acute gastroenteropathy due to [place] agent Plan 1. Probable acute upper GI bleed. The patient did have a drop in hemoglobin hematocrit even after single blood transfusion. I will plan EGD today. CAT scan had shown thickening of the duodenum. 2. Norovirus enteritis. Norovirus infection can cause the sudden onset of severe vomiting and diarrhea. The virus is highly contagious and commonly spread through food or water that is contaminated during preparation or through contaminated surfaces. This can also be infected through close contact with an infected person. Diarrhea, stomach pain and vomiting typically begin 12 to 48 hours after exposure. Norovirus symptoms usually last one to three days, and most people recover completely without treatment. Norovirus is the most common cause of epidemic viral gastroenteritis world wide and is certainly spread by the fecal oral route.
--- NOTE | 2024-09-05 10:25 | P.PN_ITS ---
Subjective *Date: 09/05/24 *Time: 17:50 Interval history: Riki is alert and oriented today. Continued to have dark stools overnight. Still having loose stool secondary to norovirus. Afebrile. No nausea or vomiting. Having epigastric discomfort. Stable on room air. Medical Exam Vital signs and Labs for Last 24 Hours: Vital Signs Temp Pulse Pulse Resp BP BP Pulse Ox 09/05/24 09:00 09/05/24 08:00 09/05/24 08:00 80 09/05/24 08:00 98.1 F 77 16 122/60 94 L 09/05/24 06:58 09/05/24 05:10 97.5 F L 75 20 109/58 L 100 09/05/24 05:00 09/05/24 04:45 97.7 F 74 18 137/55 L 98 09/05/24 04:10 97.5 F L 62 16 114/52 L 100 09/05/24 04:00 70 09/05/24 03:10 97.5 F L 71 18 116/60 97 09/05/24 03:00 09/05/24 02:55 97.5 F L 70 18 103/54 L 100 09/05/24 02:40 97.8 F 68 18 98/57 L 97 09/05/24 02:25 97.3 F L 77 20 101/56 L 99 09/05/24 02:24 97.3 F L 77 20 101/56 L 99 09/05/24 02:20 97.4 F L 72 20 107/52 L 99 09/05/24 02:15 98.2 F 74 18 99/53 L 100 09/05/24 02:10 97.6 F 74 20 100/57 L 100 09/05/24 02:00 98.3 F 73 18 98/55 L 98 09/05/24 01:00 09/05/24 00:00 70 09/05/24 00:00 98.0 F 99 H 16 120/65 98 09/04/24 23:00 09/04/24 21:00 09/04/24 20:00 97.8 F 103 H 16 125/69 99 09/04/24 20:00 98 09/04/24 20:00 100 H 09/04/24 18:35 09/04/24 16:49 09/04/24 16:37 100 H 09/04/24 16:00 98.4 F 106 H 20 141/74 H 98 09/04/24 15:32 09/04/24 15:00 09/04/24 14:00 100 H 15 152/75 H 99 09/04/24 13:41 98.5 F 65 20 143/65 H 09/04/24 13:30 103 H 19 143/83 H 97 09/04/24 13:00 99 H 18 133/73 99 09/04/24 12:31 101 H 12 147/72 H 98 09/04/24 12:00 98 H 17 103/84 L 97 09/04/24 11:31 104 H 18 139/72 98 09/04/24 11:14 108 H 15 146/75 H 98 09/04/24 11:02 103 H 24 130/108 H 93 L 09/04/24 10:30 83 15 182/103 H 100 O2 Del Method 09/05/24 09:00 Room Air 09/05/24 08:00 Room Air 09/05/24 08:00 09/05/24 08:00 09/05/24 06:58 Room Air 09/05/24 05:10 09/05/24 05:00 Room Air 09/05/24 04:45 09/05/24 04:10 09/05/24 04:00 09/05/24 03:10 09/05/24 03:00 Room Air 09/05/24 02:55 09/05/24 02:40 09/05/24 02:25 09/05/24 02:24 09/05/24 02:20 09/05/24 02:15 09/05/24 02:10 09/05/24 02:00 09/05/24 01:00 Room Air 09/05/24 00:00 09/05/24 00:00 Room Air 09/04/24 23:00 Room Air 09/04/24 21:00 Room Air 09/04/24 20:00 Room Air 09/04/24 20:00 Room Air 09/04/24 20:00 09/04/24 18:35 Room Air 09/04/24 16:49 Room Air 09/04/24 16:37 09/04/24 16:00 Room Air 09/04/24 15:32 Room Air 09/04/24 15:00 Room Air 09/04/24 14:00 Room Air 09/04/24 13:41 Room Air 09/04/24 13:30 Room Air 09/04/24 13:00 Room Air 09/04/24 12:31 Room Air 09/04/24 12:00 Room Air 09/04/24 11:31 Room Air 09/04/24 11:14 Room Air 09/04/24 11:02 Room Air 09/04/24 10:30 Room Air Intake and Output 09/04/24 09/05/24 09/05/24 23:59 07:59 15:59 Intake Total 360 / 360 250 / 250 Output Total 200 / 200 Balance 160 / 160 250 / 250 Intake: Intake, Oral Amount 360 / 360 Intake (Blood Product) Amt 250 / 250 Red Blood Cells Unit 250 / 250 [id number] Output: Output, Urine Amount 200 / 200 Other: Number of Bowel Movements 1 1 Weight 118.297 kg Patient Weight 09/05/24 23:59 Weight 118.297 kg Laboratory Results - last 24 hr 09/04/24 09:25: NT-Pro-B Natriuret Pep 2740 H 09/04/24 09:35: Total Counted 100, Neutrophils % (Manual) 86 H, Band Neutrophils % 5.0, Lymphocytes % (Manual) 6 L, Monocytes % (Manual) 3, Platelet Estimate Normal, RBC Morphology Normal, Acetone Level None detected 09/04/24 10:02: SARS-CoV-2 (PCR) Not detected, Influenza A Untype (PCR) Not detected, Influenza Type B (PCR) Not detected 09/04/24 10:09: Blood Type A Positive, Antibody Screen Negative, Crossmatch (AHG) See Detail 09/04/24 10:20: VBG pH 7.33, VBG pCO2 38.2, VBG pO2 30.7, VBG HCO3 19.6 L, VBG Total CO2 20.8 L, VBG O2 Saturation 54.0, VBG Base Excess -6.3 L, VBG Lactic Acid 2.4 H 09/04/24 13:50: Stl Aeromonas (PCR) Not detected, Stl C. [place]ensis PCR Not detected, Stool Rotavirus (PCR) Not detected, Stl Adenov F 40/41 PCR Not detected, Stool Astrovirus (PCR) Not detected, Stool Campylobacter PCR Not detected, Stl C.difficile Tox PCR Not detected, Stool Cryptosporidium PCR Not detected, Stl E.coli Shiga Tox PCR Not detected, Stool E coli O157 PCR Not detected, Stl Enterotoxigenic E PCR Not detected, Stool EPEC (PCR) Not detected, Stool EAEC (PCR) Not detected, Stl E. histolytica PCR Not detected, Stool Giardia Lamblia PCR Not detected, Stool Salmonella PCR Not detected, Stool Sapovirus (PCR) Not detected, Stl P. shigelloides PCR Not detected, Stl Shigella/EIEC PCR Not detected, St Y.enterocolitica PCR Not detected, Stool Vibrio (PCR) Not detected, Stl Vibrio cholerae PCR Not detected, Stl Norovirus GI/GII PCR Detected A 09/04/24 15:05: Lactate 2.0 09/04/24 21:20: WBC 19.0 H, RBC 2.95 L, Hgb 8.6 L D, Hct 27.0 L, MCV 91.5, MCH 29.2, MCHC 31.9, RDW 17.1, Plt Count 305, MPV 9.5, Neut % (Auto) 75.1, Lymph % (Auto) 13.8, [place] % (Auto) 9.8 H, Eos % (Auto) 0.2, Baso % (Auto) 0.3, Neut # (Auto) 14.3 H, Lymph # (Auto) 2.6, [place] # (Auto) 1.9 H, Eos # (Auto) 0.0, Baso # (Auto) 0.1, Total Counted 100, Neutrophils % (Manual) 81 H, Lymphocytes % (Manual) 12, Monocytes % (Manual) 7, Platelet Estimate Normal, RBC Morphology Not Reportable, Anisocytosis 2+, Microcytosis 1+, Macrocytosis 1+, Spherocytes 1+, Sodium 141, Potassium 4.8, Chloride 110 H, Carbon Dioxide 18 L, Anion Gap 17.8 H, BUN 98 H, Creatinine 2.10 H, Estimated Creat Clear 48, Estimated GFR 31 L, Est GFR ( Amer) 37 L, Glucose 156 H, Calcium 7.7 L 09/05/24 07:50: WBC 16.3 H, RBC 2.79 L, Hgb 8.1 L, Hct 24.8 L, MCV 88.9, MCH 29.0, MCHC 32.7, RDW 15.8, Plt Count 258, MPV 9.6, Neut % (Auto) 72.7, Lymph % (Auto) 16.5, [place] % (Auto) 8.5, Eos % (Auto) 1.0, Baso % (Auto) 0.5, Neut # (Auto) 11.9 H, Lymph # (Auto) 2.7, [place] # (Auto) 1.4 H, Eos # (Auto) 0.2, Baso # (Auto) 0.1, Total Counted 100, Neutrophils % (Manual) 61, Lymphocytes % (Manual) 35, Monocytes % (Manual) 4, Platelet Estimate Normal, RBC Morphology Normal, Sodium 139, Potassium 5.0, Chloride 110 H, Carbon Dioxide 22, Anion Gap 12.0, BUN 103 H*, Creatinine 2.50 H, Estimated Creat Clear 40, Estimated GFR 25 L, Est GFR ( Amer) 30 L, Glucose 110 H D, Calcium 7.8 L, Magnesium 1.8, Iron 47 L, TIBC 271, Iron Saturation 17.49529, Ferritin 49.5, Total Bilirubin 0.5, AST 21, ALT 17 D, Alkaline Phosphatase 74, NT-Pro-B Natriuret Pep 1320 H, Total Protein 5.6 L, Albumin 3.0 L D, Globulin 2.6, Albumin/Globulin Ratio 1.2, TSH 5.44 H, Free T4 0.89 09/05/24 21:52: Blood Type Confirm A Positive I & O for Labs for Last 24 Hours: Intake & Output 09/02/24 09/03/24 09/04/24 09/05/24 23:59 23:59 23:59 23:59 Intake Total 360 / 360 250 / 250 Output Total 200 / 200 Balance 160 / 160 250 / 250 Weight 117.8 kg 118.297 kg Microbiology Reports for the Last 24 Hours: Microbiology 09/04/24 09:58 Blood Blood Culture - Preliminary NO GROWTH AFTER 24 HOURS 09/04/24 09:35 Blood Blood Culture - Preliminary NO GROWTH AFTER 24 HOURS Constitutional: Present no acute distress, obese, chronically ill appearing and cooperative Head: Present atraumatic and normocephalic ENT: Present normal exam Comment:: Poor dentition Respiratory: Present CTA bilaterally and normal respiratory effort; Absent accessory muscle use, rhonchi, wheezes or crackles Cardiac: Present Reg Rate and Rhythm GI: Present soft, tenderness (Epigastric) and hyperactive bowel sounds; Absent distention Extremities: Present normal inspection and full ROM; Absent edema Comment:: Chronic stasis changes of legs, no edema. Skin: Present intact; Absent erythema Comment:: Chronic stasis changes, no open wounds. Dry scaling of leg Neuro: Present Grossly Intact, alert, awake, oriented x 3 and moves all extremities Assessment and Plan *Assessment and plan (1) UGIB (upper gastrointestinal bleed): Status: Acute Category: Medical Code(s): K92.2 - Gastrointestinal hemorrhage, unspecified (2) Acute anemia: Status: Acute Category: Medical Code(s): D64.9 - Anemia, unspecified (3) Acute uremia: Status: Acute Category: Medical Code(s): N19 - Unspecified kidney failure (4) Norovirus: Status: Acute Category: Medical Code(s): A08.11 - Acute gastroenteropathy due to [place] agent (5) CAD (coronary artery disease): Status: Acute Qualifiers: Associated angina: without angina Coronary Disease-Associated Artery/Lesion type: [place] artery [place] vs. transplanted heart: [place] heart Qualified Code(s): I25.10 - Atherosclerotic heart disease of [place] coronary artery without angina pectoris Category: Medical Code(s): I25.10 - Atherosclerotic heart disease of [place] coronary artery without angina pectoris (6) HFrEF (heart failure with reduced ejection fraction): Status: Acute Category: Medical Code(s): I50.20 - Unspecified systolic (congestive) heart failure (7) Class 2 obesity: Status: Chronic Category: Medical Code(s): E66.812 - Obesity, class 2 (8) Hypertension: Status: Chronic Qualifiers: Hypertension type: unspecified Qualified Code(s): I10 - Essential (primary) hypertension Category: Medical Code(s): I10 - Essential (primary) hypertension Plan Riki Mckeon is a 79-year-old male with a medical history significant for HFrEF, NSTEMI/CAD s/p 6 stents, hypothyroidism, BPH who presents for 3 days of worsening weakness in the setting of diarrhea. Patient states diarrhea began over the weekend and has been quite profuse, also endorsed initial nausea vomiting that has since resolved. Workup in the ED significant for WBC 16.9, hemoglobin 11.0, elevated BUN 83 (baseline around 30), sodium 146, AGAP 19.2,. While ED stool FOBT was negative there was witnessed blood clots in patient's stool. Stool PCR revealed norovirus. CT abdomen/pelvis revealed abnormal mucosal thickening in the duodenum, 70% stenosis in the proximal left renal artery. ED discussed case with GI who will perform EGD tomorrow. Case discussed with ED provider and decision was made to admit patient for upper GI bleed. #Upper GI bleed #Acute on chronic anemia ? Hemoglobin dropped from 11.0-8.6 on night of mission. Received 1 unit packed red blood cells. Hemoglobin 8.1 this morning. Will transfuse second unit today -Repeat H&H ordered for this afternoon with CBC, CMP, magnesium ordered for the morning -BUN elevated to 103, creatinine stable at 2.5. Consistent with GI bleed. Does not have any focal symptoms of uremia with confusion. -Positive for norovirus on diarrhea panel. Continues to have multiple loose stools. -Advance to clear liquid diet after EGD -Taken for EGD, discussed case with GI, found to have duodenal ulcers. Treated with epinephrine and clipping. Clot present but no active signs of bleeding. -Continue holding DAPT for recent NSTEMI with stents due to bleeding. Will resume in the next day or 2 -Continue pantoprazole 40 mg p.o. twice daily. Initiate misoprostol 100 mg Daily ? Transfuse pRBC if hemoglobin less than 9 given recent NSTEMI with stents. -High risk for decompensation given ulcer with prominent vessel. #Sepsis #Norovirus gastroenteritis ? WBC 16 this morning. If remainder of cultures are negative, will discontinue Zosyn after 48 hours. #HFrEF #CAD s/p 6 stents ? Hold DAPT, diuretics, nephrotoxic agents at this time given GI bleed. ? Resume GDMT once appropriate after EGD. #Hypothyroidism ? Continue home levothyroxine 100 mcg. TSH marginally elevated at 5.4 #BPH: Significant symptoms. Continue tamsulosin 0.8 mg nightly. Will add finasteride 5 mg daily to regimen. Full code DVT prophylaxis: SCDs Clear liquid diet
[2024-09-05 11:06] LABS: Microscopic, Urine URINE MICROSCOPIC (MICROSCOPIC)
[2024-09-05 11:09] LABS: Appearance,Urine CLEAR (Clear); Bilirubin,Urine Negative (Negative); Blood, Urine Negative (Negative); Color,Urine YELLOW (Yellow); Glucose,Urine (UA) Negative (Negative); Ketones,Urine Negative (Negative); Leukocyte Esterase,Urine Negative (Negative); Nitrate,Urine Negative (Negative); Protein,Urine Negative (Negative); Specific Gravity, Urine 1.015 (1.005-1.030); Urobilinogen,Urine 0.2 EU/dl (0.2)
[2024-09-05 11:16] LABS: Bacteria,Urine 1+ /lpf; Squamous Epithelial Cell,Urine Occasional #/hpf (0-5); WBC,Urine Occasional #/hpf (0-3)
--- NOTE | 2024-09-05 11:43 | P.PNANES_ITS ---
[facility] Disclaimer: The information contained in this section may have been updated after the patient was seen, as this information can be updated by other users. Medical History UGIB (upper gastrointestinal bleed) PUD (peptic ulcer disease) Duodenitis Nausea and vomiting Nausea Encounter for laboratory testing for COVID-19 virus Diabetes mellitus Gastroenteritis and colitis, viral Dehydration PICC (peripherally inserted central catheter) in place Diabetic foot Multiple drug resistant organism (MDRO) culture positive Near syncope Cellulitis, leg Ingrowing Toenail Callus of foot Onychoincurvatum Onychodystrophy Pain around toenail, left foot Ingrowing Toenail Cellulitis of right leg Arthritis PAD (peripheral artery disease) HTN (hypertension), benign Heart murmur T2DM (type 2 diabetes mellitus) BPH (benign prostatic hyperplasia) Peripheral vascular disease Surgical History Hx of colonoscopy History of total left hip replacement Family History Other Cancer Heart attack Social History Smoking Status: Never smoker alcohol intake: never substance use type: denies use current occupational status: retired Travel in the last 8 weeks: None household members: none housing: house current occupation: [employer] current occupational exposures/hazards: No caffeine: Yes [facility] Anesthesia Checklist Patient Identification Patient Identification: Arm Band and Verbal (Name & ) Structural Data Admitted From: Inpatient Planned Operative Procedure/s: EGD Consent for Planned Operative Procedure(s) Verified: Yes Verified Documents: Surgical Consent and History and Physical NPO Status Verified Time NPO: 00:00 Chart Verification Results Verified: CBC, BMP and ECG Additional verifications Anesthesia Reactions: No Airway Assessment Mallampati Score:: Class II C-Spine Mobility Assessed: Yes TMJ Mobility Assessed: Yes Dentition: Poor Dentition (Multiple missing) Neurological Assessment Level of Consciousness: Awake Hx Seizures: No Numbness or tingling in extremities: No Anesthesia Plan Anesthesia Risk discussed: Yes Anesthesia Plan: Verified ASA Class: III Anesthesia Type: MAC
--- NOTE | 2024-09-05 13:10 | P.PCN_ITS ---
[facility] Procedure Note Date: 09/05/24 Time: 13:47 Procedure Note:: Upper Endoscopy Procedure Report: Esophagogastroduodenoscopy with submucosal epinephrine injection, BiCap heater probe ablation and cold biopsies Endoscopost: Laron Mello II, MD Referring Physician: Gasper [place] M.D. Date of Procedure: September 05, 2024 Equipment: Olympus GIF 190 standard upper endoscope Sedation: MAC sedation Indications: Mr. Vega is a 79-year-old gentleman who presented with a 3-day history of diarrhea that began over the preceding weekend. He also had nausea and vomiting initially. His PCR stool panel showed norovirus. The patient did have blood clots with his stools which were witnessed. The patient's initial hemoglobin and hematocrit in the ED was 11.0 and 34.3. At 0 on 09/04 this dropped to 8.6 and 27.0. He received 1 unit of PRBCs and his hemoglobin and hematocrit this morning at 7:50 AM were 8.1 and 24.8 with drop. He is hemodynamically stable. He is on anticoagulation with clopidogrel. The patient did have a CT scan of the abdomen pelvis that showed some abnormal mucosal thickening of the duodenum. He did have a rise in BUN out of the norm but does have some chronic renal insufficiency. Procedure: Prior to the procedure, a history and physical exam was performed, and patient's medications and allergies were reviewed. The risks, benefits and alternatives of the sedation and procedure were discussed with the patient. All questions were answered and informed consent was obtained. The patient was brought to the procedure room. Patient identification and proposed procedure were verified by the physician and the nurse. The patient was placed in a left lateral decubitus position and the scope was passed under direct vision. Throughout the procedure, the patient's blood pressure, pulse, and oxygen saturations were monitored continuously. The upper GI endoscopy was accomplished without difficulty. The patient tolerated the procedure well. Findings: The scope was passed directly into the upper esophagus and advanced to the third portion of the duodenum. Within the a post bulbar duodenum and the second and third portion there were multiple ulcerations that were shallow. Most of these were clean base. One of the ulcers at the junction of the second and third portion of the duodenum had visible clot and the clot was washed. There was a visible vessel in the base of the ulcer. The ulcer base was injected with 1-10,000 epinephrine submucosally in 4 aliquots of 1 to 2 cc each. Next, the BiCap gold probe was utilized to ablate the visible vessel over the surface with excellent cautery effect. Lastly, 2 endoclips were placed over the ulcer with complete hemostasis. The first portion of duodenum and duodenal bulb were clean without ulceration. The scope was withdrawn through a normal pylorus and of the stomach. There is minimal reactive gastropathy of the antrum. The body and fundus of the stomach were normal. Biopsies were taken at the incisura along the lesser curvature to rule out H. pylori. Upon retroflexion there was a smaller 2 cm hiatal hernia. The scope was then withdrawn into the esophagus. There was grade B (LA classification) reflux esophagitis but no obvious Crespo's. Biopsies were taken in the distal esophagus near the deep GE junction. The remainder of the esophageal mucosa was normal. Impression: 1. Duodenal ulcer with clot and visible vessel at junction of second and third portion of duodenum?status post submucosal epinephrine, heater probe ablation and Endo Clip placement 2. Post bulbar duodenal ulcer disease 3. Mild reactive gastropathy of antrum 4. Grade B reflux esophagitis with small 2 cm hiatal hernia Plan: The GI bleeding was most certainly related to the duodenal ulcer disease. The patient is allergic to NSAIDs and this is not an etiology. Certainly the anticoagulation played a role with the magnitude of bleeding. I will check for H. pylori. I do feel that this may be related to viral enteritis and viral duodenal ulceration. Most H. pylori duodenal ulcers are within the duodenal bulb and first portion which was not identified in this patient. I would recommend omeprazole twice daily and with the addition of misoprostol twice daily. The misoprostol dose may be limiting because of side effect of diarrhea. I will check biopsies to rule out H. pylori. I will discuss the findings with the patient and family and follow-up the biopsies.
--- NOTE | 2024-09-05 14:06 | HMH.PTEV ---
Physical Therapy Evaluation Rehab PT IP Evaluation Start: 09/05/24 11:00 Freq: ONCE Status: Active Protocol: Document 09/05/24 14:02 MARGI (Rec: 09/05/24 14:05 MARGI [id number]) Subjective/History History History Per H&P: Riki Mckeon is a 79-year-old male with a medical history significant for HFrEF, NSTEMI/CAD s/p 6 stents, hypothyroidism, BPH who presents for 3 days of worsening weakness in the setting of diarrhea. Patient states diarrhea began over the weekend and has been quite profuse, also endorsed initial nausea vomiting that has since resolved. Workup in the ED significant for WBC 16.9, hemoglobin 11.0, elevated BUN 83 (baseline around 30), sodium 146, AGAP 19.2,. While ED stool FOBT was negative there was witnessed blood clots in patient's stool. Stool PCR revealed norovirus. CT abdomen/pelvis revealed abnormal mucosal thickening in the duodenum, 70% stenosis in the proximal left renal artery. ED discussed case with GI who will perform EGD tomorrow. Case discussed with ED provider and decision was made to admit patient for upper GI bleed. Subjective Subjective Pt lives at home alone and is usually IND with mobility with use of rollator. New diagnosis of cancer in past 12 No months? Rehab PT IP Eval Objective Appearance Patient Behavior Appropriate,Cooperative Patient Orientation Person,Place,Situation Speech Pattern Clear Ambulation Patient Able to Ambulate No Balance Ability to Arise Able, uses arms to help Sitting Balance Steady, safe Standing Balance Steady, wide stance Dynamic Sitting Balance Ability Good Transfers Bed Transfer Ability Minimal x 1 (25% assist) Rehab PT IP prob,goals,plan Problems Date of Evaluation: 09/05/24 PT IP Problems Bed Mobility,Transfers,Gait, Balance,Self care,Safety Rehab Potential Rehab Potential Good Equipment Needs Assistive Devices Rolling / Wheeled Walker Plan PT Intervention Plan Bed Mobility,Transfers,Gait, Balance,Self care,Safety, Therapeutic Exercise Other Intervention Plan 1-2 times PT Plan Frequency Daily Duration LOS Discharge Goals Bed Transfer Ability Supervision/Stand by Sit to Stand Chair Transfer Ability Supervision/Stand by Ambulation Distance (feet) 10 Discharge Plan PT Discharge Plan Initial physical therapy evaluation performed. Patient presents below baseline at this time in functional mobility, transfers, and strength. Pt unable to trial STS or ambulation d/t c/o dizziness. Pt not safe to return home at this time d/t current level of functional mobility. PT recommending short-term rehabilitation stay upon d/c from [facility]. Pt would benefit from skilled PT while at [facility] to prevent further functional decline and maximize safety with mobility. Eval Complexity Eval Charge Codes 76943 - Moderate Complexity PHYSICIAN CERTIFICATION: I certify the specified therapy services for Riki Mckeon are required, authorized, and reviewed every 30 days.
[2024-09-05] MEDS: EPINEPHrine 0.1 MG/ML 10ML SYRINGE (CRASH CART) 0.5 MG IV (14:56)
--- NOTE | 2024-09-05 15:00 | HMH.OTEV ---
OT Inpatient Evaluation Rehab OT IP Evaluation Start: 09/05/24 11:00 Freq: ONCE Status: Active Protocol: Document 09/05/24 14:48 [facility] (Rec: 09/05/24 15:00 [facility] [id number]) Rehab OT IP Assessment Subjective History Pt oriented x 3 on arrival. Pt agreeable to engage in therapy evaluation. Pt admitted on 09/04/24 due to Upper GI bleed. Per H&P: Riki Mckeon is a 79-year-old male with a medical history significant for HFrEF, NSTEMI/CAD s/p 6 stents, hypothyroidism, BPH who presents for 3 days of worsening weakness in the setting of diarrhea. Patient states diarrhea began over the weekend and has been quite profuse, also endorsed initial nausea vomiting that has since resolved. Workup in the ED significant for WBC 16.9, hemoglobin 11.0, elevated BUN 83 (baseline around 30), sodium 146, AGAP 19.2,. While ED stool FOBT was negative there was witnessed blood clots in patient's stool. Stool PCR revealed norovirus. CT abdomen/pelvis revealed abnormal mucosal thickening in the duodenum, 70% stenosis in the proximal left renal artery. ED discussed case with GI who will perform EGD tomorrow. Case discussed with ED provider and decision was made to admit patient for upper GI bleed. Subjective I am too dizzy and weak to stand. Prior to being in the hospital , pt lived at home alone. Pt claims he was normally independent with all ADLs and IADLs. Pt did use a rolling walker during functional transfers. Pt also still drove. 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 Pt able to get to eob with minimal assistance. However, once at eob, pt unable to stand due to dizziness and weakness. Objective Patient Orientation Person,Place,Birthday Bed Mobility bed mobility-scooting,bed mobility - supine/sit Assist Level Minimal x 1 (25% assist) Rehab OT IP prob,goals,plan Problems Date of Evaluation: 09/05/24 OT IP Problems Bed Mobility,Transfers,Balance ,Self care,Safety Rehab Potential Rehab Potential Good Equipment Needs Assistive Devices Rolling / Wheeled Walker Plan OT intervention Plan Bed Mobility,Transfers,Balance ,Self care,Safety,Therapeutic Exercise OT Plan Frequency Daily Duration LOS Discharge Goals Bed Mobility Ability Assistance x1 Sit to Stand Chair Transfer Ability Minimal x 1 (25% assist) Chair Transfer Ability Minimal x 1 (25% assist) Chair Transfer Technique Sit to/from Ambulatory Chair Transfer Assistive Devices Rolling Walker Lower Body Dressing Ability Minimal Assistance Upper Body Dressing Ability Standby Assistance Bathing Ability Minimal Assistance Performing Toilet Hygiene Ability Minimal Assistance Overall Commode/Toilet Transfer Ability Contact Guard,Minimal Assistance Commode/Toilet Transfer Technique Sit to/from Ambulatory Decrease in Endurance Yes Discharge Plan OT Discharge Plan Pt's evaluation was limited due to pt complaining of dizziness and inability to stand. At this time, therapist does recommend short term rehab at [facility] following discharge for continued skilled therapy. Pt will continue to be seen for OT services while at [facility]. Continued skilled therapy is important in order for patient to improve strength, safety, endurance, ADL independence, and functional transfers to reach PLOF. Eval Complexity Eval Charge Codes 58963 - Moderate Complexity PHYSICIAN CERTIFICATION: I certify the specified therapy services for Riki Mckeon are required, authorized, and reviewed every 30 days.
[2024-09-05] MEDS: FINASTERIDE 5MG TABLET 5 MG PO (15:50)
[2024-09-05] MEDS: miSOPROStol 100MCG TABLET 100 MCG PO (15:51)
[2024-09-05 19:48] LABS: Hematocrit 25.1 % (42.0-52.0); Hemoglobin 8.4 g/dL (14.1-18.0)
[2024-09-05] MEDS: TAMSULOSIN 0.4MG CAPSULE 0.8 MG PO (21:24)
[2024-09-05] MEDS: PANTOPRAZOLE 40MG TABLET 40 MG PO (21:25)
--- NOTE | 2024-09-05 23:38 | EXP.EVENT.NO ---
Repeat H/H at 7:35 PM 8.4/25.1. Ordered 1 unit PRBC at 8:12 PM given significant cardiac comorbidities. Vital signs stable. Patient sitting comfortably in bed, asymptomatic.
[2024-09-06] VITALS (12 sets, daily range): BP systolic 105–134; BP diastolic 45–75; PULSE 50–68; RESP 13–18; TEMP 36.3–36.6; O2SAT 98–99; BMI 40.1
[2024-09-06] MEDS: LEVOTHYROXINE 50MCG (0.05MG) TAB 50 MCG PO (06:26)
[2024-09-06] MEDS: PIPERCILLIN/TAZO 3.375 GM in 0.9 % SODIUM CHLORIDE 50 ML IV ×3 (06:26→21:58)
[2024-09-06 07:05] LABS: Basophils # 0.1 K/mm3 (0-0.2); Basophils % 0.6 % (0.1-2.0); Eosinophils # 0.5 K/mm3 (0.0-0.4); Eosinophils % 4.3 % (0.1-12.0); Hematocrit 30.5 % (42.0-52.0); Lymphocytes # 2.4 K/mm3 (0.7-4.5); Lymphocytes % 20.1 % (10-50); Mean Corpuscular HGB Conc 33.1 g/dL (31.8-35.4); Mean Corpuscular Volume 90.5 fl (80-94); Mean Platelet Volume 9.4 fl (7.4-10.4); Monocytes # 1.1 K/mm3 (0.1-1.0); Monocytes % 9.2 % (1.7-9.3); Neutrophils # 7.6 K/mm3 (1.8-7.8); Neutrophils % 64.3 % (37.0-80.0); Platelet Count 228 K/mm3 (142-424); Red Blood Count 3.37 M/mm3 (4.60-6.20); Red Cell Distribution Width 15.5 % (11.5-17.5); White Blood Count 11.8 K/mm3 (4.8-10.8)
[2024-09-06 07:17] LABS: Hemoglobin 9.8 g/dL (14.1-18.0)
[2024-09-06 07:23] LABS: Alanine Aminotransferase 17 U/L (12-78); Albumin/Globulin Ratio 1.2 (1.1-1.8); Alkaline Phosphatase 68 U/L (38-126); Anion Gap 9.2 mEq/L (5-15); Aspartate Amino Transferase 24 U/L (17-59); Bilirubin,Total 0.7 mg/dl (0.2-1.3); Blood Urea Nitrogen 67 mg/dl (9-20); Calcium 7.8 mg/dl (8.4-10.2); Carbon Dioxide 23 mmol/L (22.0-30.0); Chloride 110 mmol/L (98-107); Creatinine Clearance Estimated 52 mL/min (50-200); Estimated Glomerular Filt Rate 32 ml/min (>60); GFR (African American) 39 ML/MIN (>60); Globulin 2.6 g/dL (1.3-3.2); Glucose 87 mg/dl (74-100); Potassium 4.2 mmoL/L (3.5-5.1); Sodium 138 mmol/L (136-145); Total Protein,Serum 5.6 g/dl (6.3-8.2)
--- NOTE | 2024-09-06 07:53 | EXP.PN ---
Subjective *Date: 09/06/24 *Time: 07:53 Interval history: Patient doing well this morning. No further hematochezia or melena. No abdominal pain. The patient did have some discomfort just after EGD which was transient. Patient received 1 additional unit after endoscopy and remains hemodynamically stable. The patient is still having some diarrhea and had fecal incontinence twice. Exam Data for Last 24 hours Vital signs and Labs for Last 24 Hours: Temp Pulse Resp BP Pulse Ox O2 Del Method 97.4 F L 66 16 127/65 99 Room Air 09/06/24 04:00 09/06/24 04:00 09/06/24 04:00 09/06/24 04:00 09/06/24 04:00 09/06/24 07:00 Laboratory Results - last 24 hr 09/04/24 10:09: Blood Type A Positive, Antibody Screen Negative, Crossmatch (AHG) See Detail 09/04/24 10:57: Urine Color Yellow, Urine Appearance Clear, Urine pH 6.0, Ur Specific [place] 1.015, Urine Protein Negative, Urine Glucose (UA) Negative, Urine Ketones Negative, Urine Blood Negative, Urine Nitrate Negative, Urine Bilirubin Negative, Urine Urobilinogen 0.2, Ur Leukocyte Esterase Negative, Urine RBC None, Urine WBC Occasional, Ur Squamous Epith Cells Occasional, Urine Bacteria 1+ 09/05/24 07:50: WBC 16.3 H, RBC 2.79 L, Hgb 8.1 L, Hct 24.8 L, MCV 88.9, MCH 29.0, MCHC 32.7, RDW 15.8, Plt Count 258, MPV 9.6, Neut % (Auto) 72.7, Lymph % (Auto) 16.5, [place] % (Auto) 8.5, Eos % (Auto) 1.0, Baso % (Auto) 0.5, Neut # (Auto) 11.9 H, Lymph # (Auto) 2.7, [place] # (Auto) 1.4 H, Eos # (Auto) 0.2, Baso # (Auto) 0.1, Total Counted 100, Neutrophils % (Manual) 61, Lymphocytes % (Manual) 35, Monocytes % (Manual) 4, Platelet Estimate Normal, RBC Morphology Normal, Sodium 139, Potassium 5.0, Chloride 110 H, Carbon Dioxide 22, Anion Gap 12.0, BUN 103 H*, Creatinine 2.50 H, Estimated Creat Clear 40, Estimated GFR 25 L, Est GFR ( Amer) 30 L, Glucose 110 H D, Calcium 7.8 L, Magnesium 1.8, Iron 47 L, TIBC 271, Iron Saturation 17.70280, Ferritin 49.5, Total Bilirubin 0.5, AST 21, ALT 17 D, Alkaline Phosphatase 74, NT-Pro-B Natriuret Pep 1320 H, Total Protein 5.6 L, Albumin 3.0 L D, Globulin 2.6, Albumin/Globulin Ratio 1.2, TSH 5.44 H, Free T4 0.89 09/05/24 19:35: Hgb 8.4 L, Hct 25.1 L 09/06/24 06:15: WBC 11.8 H D, RBC 3.37 L, Hgb 9.8 L D, Hct 30.5 L, MCV 90.5, MCH 30.0, MCHC 33.1, RDW 15.5, Plt Count 228, MPV 9.4, Neut % (Auto) 64.3, Lymph % (Auto) 20.1, [place] % (Auto) 9.2, Eos % (Auto) 4.3, Baso % (Auto) 0.6, Neut # (Auto) 7.6, Lymph # (Auto) 2.4, [place] # (Auto) 1.1 H, Eos # (Auto) 0.5 H, Baso # (Auto) 0.1, Sodium 138, Potassium 4.2, Chloride 110 H, Carbon Dioxide 23, Anion Gap 9.2, BUN 67 H D, Creatinine 2.00 H, Estimated Creat Clear 52, Estimated GFR 32 L, Est GFR ( Amer) 39 L D, Glucose 87 D, Calcium 7.8 L, Magnesium 2.0 D, Total Bilirubin 0.7, AST 24, ALT 17, Alkaline Phosphatase 68, Total Protein 5.6 L, Albumin 3.0 L, Globulin 2.6, Albumin/Globulin Ratio 1.2 I & O for Last 24 hours: Intake & Output 09/03/24 09/04/24 09/05/24 09/06/24 23:59 23:59 23:59 23:59 Intake Total 360 / 360 1220 / 1220 250 / 250 Output Total 200 / 200 950 / 950 300 / 300 Balance 160 / 160 270 / 270 -50 / -50 Weight 259 lb 11.272 oz 260 lb 12.8 oz 265 lb Microbiology Reports for the Last 24 Hours: Microbiology 09/04/24 09:58 Blood Blood Culture - Preliminary NO GROWTH AFTER 24 HOURS 09/04/24 09:35 Blood Blood Culture - Preliminary NO GROWTH AFTER 24 HOURS Assessment and Plan *Assessment and plan (1) UGIB (upper gastrointestinal bleed): Status: Acute Category: Medical Code(s): K92.2 - Gastrointestinal hemorrhage, unspecified (2) Duodenal ulcer with hemorrhage: Status: Acute Category: Medical Code(s): K26.4 - Chronic or unspecified duodenal ulcer with hemorrhage (3) Norovirus: Status: Acute Category: Medical Code(s): A08.11 - Acute gastroenteropathy due to [place] agent (4) Diarrhea: Status: Acute Category: Medical Code(s): R19.7 - Diarrhea, unspecified (5) GERD (gastroesophageal reflux disease): Status: Acute Category: Medical Code(s): K21.9 - Gastro-esophageal reflux disease without esophagitis (6) Reflux esophagitis: Status: Acute Category: Medical Code(s): K21.00 - Gastro-esophageal reflux disease with esophagitis, without bleeding Plan 1. Duodenal ulcer (post bulbar) with visible vessel status post ablation and Endo Clip placement. Patient's hemoglobin and hematocrit are improved after transfusion and stable. Hemoglobin hematocrit this morning were 9.8 and 30.5. Will check biopsies to rule out H. pylori. Would continue pantoprazole twice daily x 30 days and then daily. He also has reflux esophagitis. I have also initiated very low-dose misoprostol 100 mg daily (rather than 200 mg 4 times daily). 2. GERD with reflux esophagitis. He is not entirely compliant with PPI therapy and have stressed compliance with therapy for healing and control of symptoms. 3. Norovirus. The patient does have continued diarrhea. I did place him on low-dose misoprostol for healing of the ulcer along with the pantoprazole. The misoprostol can result in some diarrhea but he is on very low-dose.
[2024-09-06] MEDS: PANTOPRAZOLE 40MG TABLET 40 MG PO ×2 (09:53→21:58)
[2024-09-06] MEDS: FINASTERIDE 5MG TABLET 5 MG PO (09:53)
[2024-09-06] MEDS: miSOPROStol 100MCG TABLET 100 MCG PO (09:53)
[2024-09-06] MEDS: CARVEDILOL 25MG TABLET 25 MG PO ×2 (09:53→21:58)
--- NOTE | 2024-09-06 11:41 | SW/DCPLANNER ---
Addendum entered by Maia Holland 09/07/24 14:48: Per Betsy castañeda/ [facility] they will resume outpatient PT. Addendum entered by Maia Holland 09/07/24 10:10: Patient has improved w/ PT and prefers to return home. I have updated Teresa w/ [facility]. Patient stated that he currently goes to [facility] for outpatient PT and prefers to resume this service. I will make contact w/ Betsy at [facility]. Per MD patient will discharge home today. Addendum entered by Maia Holland 09/07/24 08:50: Per Teresa castañeda/ [facility] she can accept this patient SNF level of care tomorrow. Original Note: I spoke w/ this patient regarding plans once medically stable for discharge. PT/OT evaluated patient and recommended SNF level of care. Patient is agreeable to placement and prefers [facility]. Unfortunately [facility] is not able to accept due to bed availability. Patient is agreeable to placement at [facility] at this time. Patient information has been faxed to Teresa castañeda/ [facility].
--- NOTE | 2024-09-06 12:02 | P.PN_ITS ---
Subjective *Date: 09/06/24 *Time: 12:48 Interval history: Patient feeling better today. Still having some loose stools but denies significant blood in his stool. No nausea or vomiting. Afebrile. Improving abdominal pain. Tolerating clear liquid diet. Medical Exam Vital signs and Labs for Last 24 Hours: Vital Signs Temp Pulse Pulse Resp BP BP Pulse Ox 09/06/24 11:37 97.8 F 64 18 109/59 L 98 09/06/24 11:00 09/06/24 09:00 09/06/24 08:00 60 09/06/24 08:00 09/06/24 07:58 97.9 F 63 16 130/56 L 98 09/06/24 07:00 09/06/24 05:00 09/06/24 04:00 97.4 F L 66 16 127/65 99 09/06/24 04:00 50 L 09/06/24 03:00 09/06/24 02:37 97.5 F L 60 17 124/64 98 09/06/24 01:37 97.6 F 56 L 15 118/58 L 98 09/06/24 01:15 97.4 F L 59 L 13 105/46 L 98 09/06/24 01:00 09/06/24 00:15 97.4 F L 52 L 14 117/52 L 99 09/06/24 00:00 97.5 F L 52 L 14 117/56 L 99 09/05/24 23:45 97.5 F L 62 17 104/56 L 99 09/05/24 23:37 60 09/05/24 23:30 97.4 F L 56 L 14 111/50 L 98 09/05/24 23:25 97.6 F 53 L 15 108/48 L 98 09/05/24 23:20 97.8 F 57 L 16 109/50 L 99 09/05/24 23:15 97.5 F L 61 14 115/51 L 100 09/05/24 23:00 09/05/24 23:00 98.0 F 63 17 110/60 100 09/05/24 21:00 09/05/24 20:00 09/05/24 19:55 97.9 F 74 16 123/57 L 98 09/05/24 18:56 09/05/24 18:30 98.0 F 76 18 128/67 99 09/05/24 17:30 98.4 F 76 20 136/73 100 09/05/24 17:00 09/05/24 16:30 97.3 F L 70 16 129/73 99 09/05/24 15:30 97.0 F L 69 18 133/88 99 09/05/24 15:15 97.3 F L 73 18 137/68 100 09/05/24 15:00 97.3 F L 67 18 134/66 99 09/05/24 15:00 09/05/24 14:45 97.6 F 68 18 116/58 L 98 09/05/24 14:40 98.1 F 66 18 115/48 L 98 09/05/24 14:35 98.0 F 63 18 133/62 99 09/05/24 14:30 97.7 F 65 18 131/55 L 99 09/05/24 14:15 97.7 F 69 18 131/73 98 09/05/24 13:58 72 16 108/52 L 95 09/05/24 13:00 09/05/24 12:09 98.0 F 77 16 123/64 94 L O2 Del Method 09/06/24 11:37 Room Air 09/06/24 11:00 Room Air 09/06/24 09:00 Room Air 09/06/24 08:00 09/06/24 08:00 Room Air 09/06/24 07:58 Room Air 09/06/24 07:00 Room Air 09/06/24 05:00 Room Air 09/06/24 04:00 Room Air 09/06/24 04:00 09/06/24 03:00 Room Air 09/06/24 02:37 09/06/24 01:37 09/06/24 01:15 09/06/24 01:00 Room Air 09/06/24 00:15 09/06/24 00:00 09/05/24 23:45 09/05/24 23:37 09/05/24 23:30 09/05/24 23:25 09/05/24 23:20 09/05/24 23:15 09/05/24 23:00 Room Air 09/05/24 23:00 09/05/24 21:00 Room Air 09/05/24 20:00 Room Air 09/05/24 19:55 Room Air 09/05/24 18:56 Room Air 09/05/24 18:30 09/05/24 17:30 09/05/24 17:00 Room Air 09/05/24 16:30 09/05/24 15:30 09/05/24 15:15 09/05/24 15:00 09/05/24 15:00 Room Air 09/05/24 14:45 09/05/24 14:40 09/05/24 14:35 09/05/24 14:30 09/05/24 14:15 09/05/24 13:58 Room Air 09/05/24 13:00 Room Air 09/05/24 12:09 Room Air Intake and Output 09/05/24 09/06/24 09/06/24 23:59 07:59 15:59 Intake Total 970 / 1220 250 / 1190 940 / 1190 Output Total 600 / 950 300 / 900 600 / 900 Balance 370 / 270 -50 / 290 340 / 290 Intake: Intake, Oral Amount 720 / 720 940 / 940 Intake (Blood Product) Amt 250 / 500 250 / 250 Red Blood Cells Unit 0 / 0 250 / 250 [id number] Red Blood Cells Unit 250 / 250 [id number] Output: Output, Urine Amount 600 / 950 300 / 900 600 / 900 Other: Number of Unmeasured Voids 1 1 0 Number of Bowel Movements 1 1 1 Weight 120.202 kg Patient Weight 09/06/24 23:59 Weight 120.202 kg Laboratory Results - last 24 hr 09/04/24 10:09: Blood Type A Positive, Antibody Screen Negative, Crossmatch (AHG) See Detail 09/05/24 19:35: Hgb 8.4 L, Hct 25.1 L 09/06/24 06:15: WBC 11.8 H D, RBC 3.37 L, Hgb 9.8 L D, Hct 30.5 L, MCV 90.5, MCH 30.0, MCHC 33.1, RDW 15.5, Plt Count 228, MPV 9.4, Neut % (Auto) 64.3, Lymph % (Auto) 20.1, [place] % (Auto) 9.2, Eos % (Auto) 4.3, Baso % (Auto) 0.6, Neut # (Auto) 7.6, Lymph # (Auto) 2.4, [place] # (Auto) 1.1 H, Eos # (Auto) 0.5 H, Baso # (Auto) 0.1, Sodium 138, Potassium 4.2, Chloride 110 H, Carbon Dioxide 23, Anion Gap 9.2, BUN 67 H D, Creatinine 2.00 H, Estimated Creat Clear 52, Estimated GFR 32 L, Est GFR ( Amer) 39 L D, Glucose 87 D, Calcium 7.8 L, Magnesium 2.0 D, Total Bilirubin 0.7, AST 24, ALT 17, Alkaline Phosphatase 68, Total Protein 5.6 L, Albumin 3.0 L, Globulin 2.6, Albumin/Globulin Ratio 1.2 I & O for Labs for Last 24 Hours: Intake & Output 09/03/24 09/04/24 09/05/24 09/06/24 23:59 23:59 23:59 23:59 Intake Total 360 / 360 1220 / 1220 1190 / 1190 Output Total 200 / 200 950 / 950 900 / 900 Balance 160 / 160 270 / 270 290 / 290 Weight 117.8 kg 118.297 kg 120.202 kg Microbiology Reports for the Last 24 Hours: Microbiology 09/04/24 09:58 Blood Blood Culture - Preliminary NO GROWTH AFTER 48 HOURS 09/04/24 09:35 Blood Blood Culture - Preliminary NO GROWTH AFTER 48 HOURS Constitutional: Present no acute distress, obese, chronically ill appearing and cooperative Head: Present atraumatic and normocephalic ENT: Present normal exam Comment:: Poor dentition Respiratory: Present CTA bilaterally and normal respiratory effort; Absent accessory muscle use, rhonchi, wheezes or crackles Cardiac: Present Reg Rate and Rhythm GI: Present soft, tenderness (Epigastric, mild) and hyperactive bowel sounds; Absent distention Extremities: Present normal inspection and full ROM; Absent edema Comment:: Chronic stasis changes of legs, no edema. Skin: Present intact; Absent erythema Comment:: Chronic stasis changes, no open wounds. Dry scaling of leg Neuro: Present Grossly Intact, alert, awake, oriented x 3 and moves all extremities Assessment and Plan *Assessment and plan (1) UGIB (upper gastrointestinal bleed): Status: Acute Category: Medical Code(s): K92.2 - Gastrointestinal hemorrhage, unspecified (2) Acute anemia: Status: Acute Category: Medical Code(s): D64.9 - Anemia, unspecified (3) Acute uremia: Status: Acute Category: Medical Code(s): N19 - Unspecified kidney failure (4) Norovirus: Status: Acute Category: Medical Code(s): A08.11 - Acute gastroenteropathy due to [place] agent (5) CAD (coronary artery disease): Status: Acute Qualifiers: Coronary Disease-Associated Artery/Lesion type: [place] artery [place] vs. transplanted heart: [place] heart Associated angina: without angina Qu alified Code(s): I25.10 - Atherosclerotic heart disease of [place] coronary artery without angina pectoris Category: Medical Code(s): I25.10 - Atherosclerotic heart disease of [place] coronary artery without angina pectoris (6) HFrEF (heart failure with reduced ejection fraction): Status: Acute Category: Medical Code(s): I50.20 - Unspecified systolic (congestive) heart failure (7) Class 2 obesity: Status: Chronic Category: Medical Code(s): E66.812 - Obesity, class 2 (8) Hypertension: Status: Chronic Qualifiers: Hypertension type: unspecified Qualified Code(s): I10 - Essential (primary) hypertension Category: Medical Code(s): I10 - Essential (primary) hypertension Plan Riki Mckeon is a 79-year-old male with a medical history significant for HFrEF, NSTEMI/CAD s/p 6 stents, hypothyroidism, BPH who presents for 3 days of worsening weakness in the setting of diarrhea. Patient states diarrhea began over the weekend and has been quite profuse, also endorsed initial nausea vomiting that has since resolved. Workup in the ED significant for WBC 16.9, hemoglobin 11.0, elevated BUN 83 (baseline around 30), sodium 146, AGAP 19.2,. While ED stool FOBT was negative there was witnessed blood clots in patient's stool. Stool PCR revealed norovirus. CT abdomen/pelvis revealed abnormal mucosal thickening in the duodenum, 70% stenosis in the proximal left renal artery. Patient admitted for GI consult and transfusions along with treatment of dehydration from norovirus diarrhea. Doing well. Hemoglobin stable. Continues to require inpatient management. PT recommending SNF, problems addressed as follows: #Upper GI bleed #Acute on chronic anemia ? Hemoglobin dropped from 11.0-8.6 on night of mission. Received 1 unit packed red blood cells. Received 2 more units over the past 24 hours. Hemoglobin better at 9.8. Repeat H&H ordered for 2:00 this afternoon to monitor for stability. - CBC, CMP, magnesium ordered for the morning -BUN elevated to 103 on admission, improved to 67 today. Creatinine 2.0. Consistent with patient's baseline creatinine. Improvement in BUN suggestive no further upper GI bleed. -Positive for norovirus on diarrhea panel. Continues to have multiple loose stools. -Reviewed GI documentation, advance diet as tolerated. Advance to full liquids for lunch, if tolerates well will go with cardiac diet for dinner. -Continue holding DAPT for recent NSTEMI with stents due to bleeding. Will resume in the next day or 2 -Continue pantoprazole 40 mg p.o. twice daily. Initiate misoprostol 100 mg Daily ?Transfuse pRBC if hemoglobin less than 9 given recent NSTEMI with stents. -High risk for decompensation given ulcer with prominent vessel. #Sepsis #Norovirus gastroenteritis ? WBC improved to 11.8 this morning. If cultures remain negative tomorrow, will discontinue Zosyn at 48 hours #HFrEF #CAD s/p 6 stents ? Hold DAPT, diuretics, nephrotoxic agents at this time given GI bleed. ? Resume GDMT once appropriate after EGD. #Hypothyroidism ? Continue home levothyroxine 100 mcg. TSH marginally elevated at 5.4 #BPH: Significant symptoms. Continue tamsulosin 0.8 mg nightly. added finasteride 5 mg daily to regimen. Full code DVT prophylaxis: SCDs Clear liquid diet
[2024-09-06 14:18] LABS: Hematocrit 28.4 % (42.0-52.0); Hemoglobin 9.4 g/dL (14.1-18.0)
--- NOTE | 2024-09-06 18:12 | PC.NURSE ---
Pt alert and oriented x4. Pt up to bedside chair most of shift. Pt has had multiple incontinent bowel movements today. Diet has been advanced to cardiac and pt is tolerating this well. Pt has no complaints at this time, call light in reach.
[2024-09-06] MEDS: TAMSULOSIN 0.4MG CAPSULE 0.8 MG PO (21:58)
--- NOTE | 2024-09-06 22:14 | PC.NURSE ---
Addendum entered by Amanda Salvador RN 09/06/24 23:18: A new 22g IV was inserted into the left hand by me at this time. Patent and intact. Infusions started. Original Note: Patient's 20G IV in the right antecubital started to leak during flushing prior to antibiotic and normal saline infusion. Patient did also report tenderness. IV site discontinued. A new IV site will be inserted, and the infusions will be started once new access is achieved.
[2024-09-07] VITALS: BP 114/55; PULSE 68; RESP 17; TEMP 36.7; O2SAT 99
[2024-09-07 04:00] VITALS: BP 155/67; PULSE 71; RESP 17; TEMP 36.4; O2SAT 98; BMI 40.0
[2024-09-07] MEDS: 0.9 % SODIUM CHLORIDE 1000ML 1,000 ML 75 ML IV (04:18)
[2024-09-07] MEDS: PIPERCILLIN/TAZO 3.375 GM in 0.9 % SODIUM CHLORIDE 50 ML IV (05:37)
[2024-09-07] MEDS: LEVOTHYROXINE 50MCG (0.05MG) TAB 50 MCG PO (06:25)
[2024-09-07 06:43] LABS: Basophils % 0.4 % (0.1-2.0); Eosinophils # 0.5 K/mm3 (0.0-0.4); Eosinophils % 4.9 % (0.1-12.0); Hematocrit 27.5 % (42.0-52.0); Hemoglobin 9.2 g/dL (14.1-18.0); Lymphocytes # 2.2 K/mm3 (0.7-4.5); Lymphocytes % 22.1 % (10-50); Mean Corpuscular HGB Conc 33.5 g/dL (31.8-35.4); Mean Corpuscular Hemoglobin 30.1 pg (27.0-31.2); Mean Corpuscular Volume 89.9 fl (80-94); Mean Platelet Volume 9.1 fl (7.4-10.4); Monocytes % 9.7 % (1.7-9.3); Neutrophils # 6.1 K/mm3 (1.8-7.8); Neutrophils % 61.3 % (37.0-80.0); Platelet Count 235 K/mm3 (142-424); Red Blood Count 3.06 M/mm3 (4.60-6.20); Red Cell Distribution Width 15.2 % (11.5-17.5)
[2024-09-07 07:03] LABS: Alanine Aminotransferase 20 U/L (12-78); Albumin/Globulin Ratio 1.2 (1.1-1.8); Alkaline Phosphatase 70 U/L (38-126); Anion Gap 11.1 mEq/L (5-15); Aspartate Amino Transferase 33 U/L (17-59); Bilirubin,Total 0.3 mg/dl (0.2-1.3); Blood Urea Nitrogen 38 mg/dl (9-20); Calcium 7.8 mg/dl (8.4-10.2); Carbon Dioxide 22 mmol/L (22.0-30.0); Chloride 110 mmol/L (98-107); Creatinine Clearance Estimated 64 mL/min (50-200); Estimated Glomerular Filt Rate 42 ml/min (>60); GFR (African American) 51 ML/MIN (>60); Globulin 2.6 g/dL (1.3-3.2); Glucose 93 mg/dl (74-100); Magnesium 1.8 mg/dl (1.6-2.3); Potassium 4.1 mmoL/L (3.5-5.1); Sodium 139 mmol/L (136-145); Total Protein,Serum 5.6 g/dl (6.3-8.2)
[2024-09-07 08:00] VITALS: BP 137/58; PULSE 69; RESP 18; TEMP 36.6; O2SAT 95
[2024-09-07] MEDS: FINASTERIDE 5MG TABLET 5 MG PO (08:19)
[2024-09-07] MEDS: CARVEDILOL 25MG TABLET 25 MG PO (08:19)
[2024-09-07] MEDS: miSOPROStol 100MCG TABLET 100 MCG PO (08:19)
[2024-09-07] MEDS: PANTOPRAZOLE 40MG TABLET 40 MG PO (08:19)
--- NOTE | 2024-09-07 09:23 | EXP.PHA.PN ---
Subjective *Date: 09/07/24 *Time: 09:23 Medical Exam Vital signs and Labs for Last 24 Hours: Vital Signs Temp Pulse Pulse Resp BP Pulse Ox O2 Del Method 09/07/24 08:00 97.9 F 69 18 137/58 L 95 Room Air 09/07/24 06:50 Room Air 09/07/24 05:00 Room Air 09/07/24 04:00 97.6 F 71 17 155/67 H 98 Room Air 09/07/24 03:00 Room Air 09/07/24 01:00 Room Air 09/07/24 00:00 98.1 F 68 17 114/55 L 99 Room Air 09/06/24 23:00 Room Air 09/06/24 21:00 Room Air 09/06/24 20:00 68 17 99 Room Air 09/06/24 20:00 97.9 F 68 17 134/75 99 Room Air 09/06/24 19:00 Room Air 09/06/24 17:00 Room Air 09/06/24 16:00 97.9 F 65 17 133/45 L 98 Room Air 09/06/24 15:00 Room Air 09/06/24 13:00 Room Air 09/06/24 12:00 60 09/06/24 11:37 97.8 F 64 18 109/59 L 98 Room Air 09/06/24 11:00 Room Air Intake and Output 09/06/24 09/07/24 09/07/24 23:59 07:59 15:59 Intake Total 660 / 3720 1150 / 1150 Output Total 325 / 1375 350 / 600 250 / 600 Balance 335 / 2345 800 / 550 -250 / 550 Intake: Intake, Oral Amount 660 / 2670 350 / 350 Infusion Intake 800 / 800 0.9 % Sodium Chloride 1000ML 1, 750 / 750 000 ml @ 75 mls/hr IV .[id number] Rx#:[id number] Pipercillin/Tazo 3.375 gm In 0. 50 / 50 9 % Sodium Chloride 50 ml @ 100 mls/hr IV Q8H [id number] Rx#:[id number] Output: Output, Urine Amount 325 / 1375 350 / 600 250 / 600 Other: Number of Unmeasured Voids 1 0 0 Number of Bowel Movements 1 Weight 119.748 kg Patient Weight 09/07/24 23:59 Weight 119.748 kg Laboratory Results - last 24 hr 01/08/25 14:02: Hgb 9.4 L, Hct 28.4 L 09/07/24 06:21: WBC 10.0, RBC 3.06 L, Hgb 9.2 L, Hct 27.5 L, MCV 89.9, MCH 30.1, MCHC 33.5, RDW 15.2, Plt Count 235, MPV 9.1, Neut % (Auto) 61.3, Lymph % (Auto) 22.1, [place] % (Auto) 9.7 H, Eos % (Auto) 4.9, Baso % (Auto) 0.4, Neut # (Auto) 6.1, Lymph # (Auto) 2.2, [place] # (Auto) 1.0, Eos # (Auto) 0.5 H, Baso # (Auto) 0.0, Sodium 139, Potassium 4.1, Chloride 110 H, Carbon Dioxide 22, Anion Gap 11.1, BUN 38 H D, Creatinine 1.60 H, Estimated Creat Clear 64, Estimated GFR 42 L, Est GFR ( Amer) 51 L D, Glucose 93, Calcium 7.8 L, Magnesium 1.8, Total Bilirubin 0.3, AST 33 D, ALT 20, Alkaline Phosphatase 70, Total Protein 5.6 L, Albumin 3.0 L, Globulin 2.6, Albumin/Globulin Ratio 1.2 I & O for Labs for Last 24 Hours: Intake & Output 09/04/24 09/05/24 09/06/24 09/07/24 23:59 23:59 23:59 23:59 Intake Total 360 / 360 1220 / 1220 2570 / 3720 1150 / 1150 Output Total 200 / 200 950 / 950 1225 / 1375 600 / 600 Balance 160 / 160 270 / 270 1345 / 2345 550 / 550 Weight 117.8 kg 118.297 kg 120.202 kg 119.748 kg Microbiology Reports for the Last 24 Hours: Microbiology 09/04/24 09:58 Blood Blood Culture - Preliminary NO GROWTH AFTER 48 HOURS 09/04/24 09:35 Blood Blood Culture - Preliminary NO GROWTH AFTER 48 HOURS The patient's infection will respond to the chosen ABx?: Yes (BLOOD CX NO GROWTH AT 48 HR, AFEBRILE OVER 24 HR, WHITE BLOOD CELL 10.0) Is the patient receiving the right drug, dose, and route?: Yes Could a more targeted ABx be ordered?: No
--- NOTE | 2024-09-07 10:05 | P.DS_ITS ---
General Admission date:: 09/05/24 Discharge date: 09/07/24 HPI HPI HPI: Mr. Mckeon is a 79-year-old male with a medical history significant for HFrEF, NSTEMI/CAD s/p 6 stents, hypothyroidism, BPH who presents for 3 days of worsening weakness in the setting of diarrhea. Patient states diarrhea began over the weekend and has been quite profuse, also endorsed initial nausea vomiting that has since resolved. Workup in the ED significant for WBC 16.9, hemoglobin 11.0, elevated BUN 83 (baseline around 30), sodium 146, AGAP 19.2,. While ED stool FOBT was negative there was witnessed blood clots in patient's stool. Stool PCR revealed norovirus. CT abdomen/pelvis revealed abnormal mucosal thickening in the duodenum, 70% stenosis in the proximal left renal artery. ED discussed case with me for EGD today. Case discussed with ED provider and decision was made to admit patient for upper GI bleed. Overnight, the patient did have 1 unit of PRBCs transfused. His hemoglobin and hematocrit yesterday initially was 11.0 and dropped to 8.6 at 9:20 PM labs. He received a blood transfusion and his hemoglobin/hematocrit this morning were 8.1 and 24.8. He also had a rise in BUN but does have some renal insufficiency. Hospital Course Hospital Course Hospital Course: Riki Mckeon is a 79-year-old male with a medical history significant for HFrEF, NSTEMI/CAD s/p 6 stents, hypothyroidism, BPH who presents for 3 days of worsening weakness in the setting of diarrhea. Patient states diarrhea began o valeriy the weekend and has been quite profuse, also endorsed initial nausea vomiting that has since resolved. Workup in the ED significant for WBC 16.9, hemoglobin 11.0, elevated BUN 83 (baseline around 30), sodium 146, AGAP 19.2,. While ED stool FOBT was negative there was witnessed blood clots in patient's stool. Stool PCR revealed norovirus. CT abdomen/pelvis revealed abnormal mucosal thickening in the duodenum, 70% stenosis in the proximal left renal artery. Patient admitted for GI consult and transfusions along with treatment of dehydration from norovirus diarrhea. Patient did well during admission. Responded to transfusion. GI evaluated, found to have ulcer that was medically managed. Hemoglobin remained stable. Therapy evaluated and recommended SNF however patient would like to go home with outpatient therapy at [facility] as he was doing that before he came in. Stable to discharge with follow-up as an outpatient. Problems addressed as follows: #Upper GI bleed #Acute on chronic anemia ? Hemoglobin dropped from 11.0-8.6 on night of admission. Received 1 unit packed red blood cells. Received 2 more units over the next 24 hours due to hemoglobin continuing to drop. Repeat hemoglobins remained in the mid 9 range. On admission patient's BUN was elevated to 103, improved after intervention with EGD. Indicative of no further bleeding. GI was consulted who took patient for an EGD. EGD found ulceration with visible vessel. Was managed with epinephrine injection. Patient started on Plavix twice daily and his DAPT therapy was held temporarily. Patient also found to be positive for norovirus on his diarrhea panel. Loose stools showing gradual improvement during admission. Advance to diet over 2 days after EGD. Tolerated well with stable hemoglobin. Given his improvement, stable discharge home on medical management for PUD. Follow-up with GI as an outpatient. -Would benefit from repeat CBC, CMP, mag in 1 to 2 weeks to monitor stability of hemoglobin and kidney function. #Sepsis #Norovirus gastroenteritis ?Improvement during admission. Presented with symptoms meeting sepsis criteria. Infectious source thought to be secondary to norovirus. White count improved to 10 by day of discharge. Patient hemodynamically stable. Blood cultures negative. Discontinued antibiotics at discharge #HFrEF #CAD s/p 6 stents ?Held dual antiplatelet therapy, diuretics, nephrotoxic agents at time of admission due to GI bleed. After hemoglobin deemed to be stable, resumed his goal-directed therapy for heart failure and stenting. #Hypothyroidism ? Continue home levothyroxine 100 mcg. TSH marginally elevated at 5.4 #BPH: Significant symptoms. Continue tamsulosin 0.8 mg nightly. added finasteride 5 mg daily to regimen. Total time spent on discharge 32 minutes in counseling, documentation, chart review, and direct care with patient. Exam Data for Last 24 hours Vital signs and Labs for Last 24 Hours: Temp Pulse Resp BP Pulse Ox O2 Del Method 97.9 F 69 18 137/58 L 95 Room Air 09/07/24 08:00 09/07/24 08:00 09/07/24 08:00 09/07/24 08:00 09/07/24 08:00 09/07/24 08:00 Laboratory Results - last 24 hr 09/06/24 14:02: Hgb 9.4 L, Hct 28.4 L 09/07/24 06:21: WBC 10.0, RBC 3.06 L, Hgb 9.2 L, Hct 27.5 L, MCV 89.9, MCH 30.1, MCHC 33.5, RDW 15.2, Plt Count 235, MPV 9.1, Neut % (Auto) 61.3, Lymph % (Auto) 22.1, [place] % (Auto) 9.7 H, Eos % (Auto) 4.9, Baso % (Auto) 0.4, Neut # (Auto) 6.1, Lymph # (Auto) 2.2, [place] # (Auto) 1.0, Eos # (Auto) 0.5 H, Baso # (Auto) 0.0, Sodium 139, Potassium 4.1, Chloride 110 H, Carbon Dioxide 22, Anion Gap 11.1, BUN 38 H D, Creatinine 1.60 H, Estimated Creat Clear 64, Estimated GFR 42 L, Est GFR ( Amer) 51 L D, Glucose 93, Calcium 7.8 L, Magnesium 1.8, Total Bilirubin 0.3, AST 33 D, ALT 20, Alkaline Phosphatase 70, Total Protein 5.6 L, Albumin 3.0 L, Globulin 2.6, Albumin/Globulin Ratio 1.2 I & O for Last 24 hours: Intake & Output 09/04/24 09/05/24 09/06/24 09/07/24 23:59 23:59 23:59 23:59 Intake Total 360 / 360 1220 / 1220 2570 / 3720 1630 / 1630 Output Total 200 / 200 950 / 950 1225 / 1375 800 / 800 Balance 160 / 160 270 / 270 1345 / 2345 830 / 830 Weight 117.8 kg 118.297 kg 120.202 kg 119.748 kg Microbiology Reports for the Last 24 Hours: Microbiology 09/04/24 09:58 Blood Blood Culture - Preliminary NO GROWTH AFTER 48 HOURS 09/04/24 09:35 Blood Blood Culture - Preliminary NO GROWTH AFTER 48 HOURS Constitutional Constitutional: no acute distress, morbidly obese, chronically ill appearing and cooperative *Routine HEENT Exam Head: Present normocephalic Eye: Present EOMI and PERRL ENT: Present mucous membranes moist Comments: poor dentition *Routine Neck Exam Neck: Present supple; Absent lymphadenopathy *Routine Respiratory Exam Respiratory: Present CTA bilaterally; Absent rhonchi, wheezes or crackles *Routine Cardiovascular Exam Cardiovascular: Present RRR *Routine Abdominal Exam Abdominal: Present soft and normoactive bowel sounds; Absent tenderness or distended *Routine Rectal Exam Patient deferred: visual exam *Routine Exam Patient deferred: penile exam *Routine Extremities Exam Extremities: Absent cyanosis, clubbing or edema *Routine Skin Exam Skin: Present intact, warm and rash Comments: stasis changes of legs, no weeping lesions however; scarring *Routine Neurological Exam Neurological: Present alert, oriented X3 and moving all extremities; Absent altered mental status Results Data Completed and Pending Labs on day of discharge: Labs from last 24 hours 09/07/24 09/06/24 06:21 14:02 WBC 10.0 RBC 3.06 L Hgb 9.2 L 9.4 L Hct 27.5 L 28.4 L MCV 89.9 MCH 30.1 MCHC 33.5 RDW 15.2 Plt Count 235 MPV 9.1 Neut % (Auto) 61.3 Lymph % (Auto) 22.1 [place] % (Auto) 9.7 H Eos % (Auto) 4.9 Baso % (Auto) 0.4 Neut # (Auto) 6.1 Lymph # (Auto) 2.2 [place] # (Auto) 1.0 Eos # (Auto) 0.5 H Baso # (Auto) 0.0 Sodium 139 Potassium 4.1 Chloride 110 H Carbon Dioxide 22 Anion Gap 11.1 BUN 38 H D Creatinine 1.60 H Estimated Creat Clear 64 Estimated GFR 42 L Est GFR ( Amer) 51 L D Glucose 93 Calcium 7.8 L Magnesium 1.8 Total Bilirubin 0.3 AST 33 D ALT 20 Alkaline Phosphatase 70 Total Protein 5.6 L Albumin 3.0 L Globulin 2.6 Albumin/Globulin Ratio 1.2 Preliminary micro results at discharge 09/04/24 09:58 Blood Culture - Preliminary Blood NO GROWTH AFTER 48 HOURS 09/04/24 09:35 Blood Culture - Preliminary Blood NO GROWTH AFTER 48 HOURS DS: Diagnosis Discharge Diagnosis (1) UGIB (upper gastrointestinal bleed): Status: Resolved Code(s): K92.2 - Gastrointestinal hemorrhage, unspecified (2) Acute anemia: Status: Acute Code(s): D64.9 - Anemia, unspecified (3) Acute uremia: Status: Acute Code(s): N19 - Unspecified kidney failure (4) Norovirus: Status: Acute Code(s): A08.11 - Acute gastroenteropathy due to [place] agent (5) CAD (coronary artery disease): Status: Acute Code(s): I25.10 - Atherosclerotic heart disease of [place] coronary artery without angina pectoris Qualifiers: Associated angina: without angina Coronary Disease-Associated Artery/Lesion type: [place] artery [place] vs. transplanted heart: [place] heart Qualified Code(s): I25.10 - Atherosclerotic heart disease of [place] coronary artery without angina pectoris (6) HFrEF (heart failure with reduced ejection fraction): Status: Acute Code(s): I50.20 - Unspecified systolic (congestive) heart failure (7) Class 2 obesity: Status: Chronic Code(s): E66.812 - Obesity, class 2 (8) Hypertension: Status: Chronic Code(s): I10 - Essential (primary) hypertension Qualifiers: Hypertension type: unspecified Qualified Code(s): I10 - Essential (primary) hypertension Meds Home Medications and Allergies Home Medications ?Medication ?Instructions ?Recorded ?Confirmed ?Type tamsulosin 0.4 mg capsule 0.8 mg PO HS 04/04/18 09/04/24 History levothyroxine 100 mcg tablet 50 mcg PO DAILY 05/30/24 09/04/24 History aspirin 81 mg tablet,delayed 81 mg PO DAILY #30 tabs 06/05/24 09/04/24 Rx release atorvastatin 40 mg tablet 40 mg PO HS #30 tabs 07/18/24 09/04/24 Rx clopidogrel 75 mg tablet 75 mg PO DAILY #90 tabs 07/18/24 09/04/24 Rx empagliflozin 10 mg tablet 10 mg PO DAILY #30 tabs 07/18/24 09/04/24 Rx (Jardiance) spironolactone 25 mg tablet 25 mg PO DAILY #30 tabs 07/18/24 09/04/24 Rx carvedilol 25 mg tablet 25 mg PO BID #180 tabs 08/17/24 09/04/24 Rx furosemide 20 mg tablet 20 mg PO MOWEFR 08/17/24 09/04/24 History valsartan 80 mg tablet 80 mg PO BID 09/04/24 09/04/24 History finasteride 5 mg tablet 5 mg PO DAILY 30 days #30 tabs 09/07/24 Rx misoprostol 100 mcg tablet 100 mcg PO DAILY #60 tabs 09/07/24 Rx pantoprazole 40 mg tablet,delayed 40 mg PO BID 30 days #60 tabs 09/07/24 Rx release New Prescriptions to Start Prescriptions: Luis Hoover misoprostol Luis Marino pantoprazole Luis Marino Allergies Allergy/AdvReac Type Severity Reaction Status Date / Time Antihistamines - Alkylamine Allergy Mild MADE SKIN Verified 08/17/24 13:25 (ANTIHISTAMINES - ALKYLAMINE) FEEL LIKE ON FIRE NSAIDS (Non-Steroidal AdvReac Severe kidney Verified 08/17/24 13:25 Anti-Inflamma failure Discharge Plan Disposition Patient Disposition: Home, Self-Care Condition: Fair Discharge Order Discharge Orders: Discharge Order (Routine); Ordered 09/07/24 Ordered By: Luis Marino Follow up Plan Follow up with: Laron Mello II, MD [Staff Physician] - Enter time for follow up (Office will contact you with follow up appointment.) Gasper Montana MD [Primary Care Provider] - 09/18/24 11:00 am Prescriptions/Medication Reconciliation: New pantoprazole 40 mg Tablet,Delayed Release (Dr/Ec) 40 mg PO BID 30 Days Qty: 60 0RF finasteride 5 mg Tablet 5 mg PO DAILY 30 Days Qty: 30 0RF misoprostol 100 mcg tablet 100 mcg PO DAILY Qty: 60 0RF Continued clopidogrel 75 mg tablet 75 mg PO DAILY Qty: 90 3RF Jardiance 10 mg tablet 10 mg PO DAILY Qty: 30 5RF spironolactone 25 mg tablet 25 mg PO DAILY Qty: 30 5RF atorvastatin 40 mg tablet 40 mg PO HS Qty: 30 5RF furosemide 20 mg tablet 20 mg PO MOWE Patient Comments: TAKE ONE TABLET BY MOUTH ON MONDAYS, WEDNESDAY AND FRIDAYS carvedilol 25 mg tablet 25 mg PO BID Qty: 180 3RF Rx Instructions: must administer with a meal/food tamsulosin 0.4 MG capsule 0.8 mg PO HS levothyroxine 100 mcg tablet 50 mcg PO DAILY Patient Comments: TAKE 1/2 (ONE-HALF) TABLET BY MOUTH ONCE DAILY aspirin 81 mg Tablet,Delayed Release (Dr/Ec) 81 mg PO DAILY Qty: 30 0RF valsartan 80 mg Tablet 80 mg PO BID Problem Reconciliation Problems Reviewed?: Yes Patient Discharge Instructions ACTIVITY: Continue current activity DIET: continue same diet Patient Instructions: DI for Upper GI Endoscopy, DI for Gastrointestinal Bleeding Print Language: Italian Providers Primary Care Provider: Gasper Montana Admit Provider: Eliseo Jameson Attending Provider: Eliseo Jameson
--- NOTE | 2024-09-07 10:53 | HMH.PHAINT1 ---
Pharmacy Intervention Comments: COUNSELLED PATIENT ON 2 NEW MEDICATIONS, FINASTERIDE AND PANTOPRAZOLE, PRIOR TO DISCHARGE. PATIENT VERBALIZED UNDERSTANDING.
[2024-09-07 11:10] VITALS: BP 153/69; PULSE 60; RESP 18; TEMP 36.4; O2SAT 98
--- NOTE | 2024-09-07 12:24 | PC.NURSE ---
MD notified of IV infiltration, Magnesium replacement not given per MD, patient is to be discharged later today, waiting on ride at this time.
--- NOTE | 2024-09-08 10:27 | SW/DCPLANNER ---
Spoke with patient on the phone. Patient stated that he is doing great. Patient stated that he is aware of his appointment with his primary care provider and that he is waiting on the phone call from Dr Mello office to give him a follow up phone call with a time and date to that appointment. Patient stated that he was able to bulk picker all of medicine except for 1 and waiting for surendra love to get that in. Patient stated that he has no concerns or questions at this time. Beverly Pittman
== END 2024-09-07 14:44 | disposition home or self-care (01) | DRG 391 ==
LOC: ER 13:20 → 2ND 13:27
PROVIDERS: Internal Medicine Adolescent Medicine; Internal Medicine Gastroenterology; Admitting Provider Student in an Organized Health Care Education/Training Program; Emergency Provider Emergency Medicine; PCP Internal Medicine Adolescent Medicine; Visit Provider Student in an Organized Health Care Education/Training Program
PROC: 0DJ08ZZ Inspection of Upper Intestinal Tract, Via Natural or Artificial Opening Endoscopic (ICD-10-PCS; principal; 2024-09-05 08:00)
DX: A08.11 Acute gastroenteropathy due to Norwalk agent (principal); K21.01 Gastro-esophageal reflux disease with esophagitis, with bleeding; K26.4 Chronic or unspecified duodenal ulcer with hemorrhage; I50.22 Chronic systolic (congestive) heart failure; Z68.41 Body mass index [BMI] 40.0-44.9, adult; D62 Acute posthemorrhagic anemia; I25.10 Atherosclerotic heart disease of native coronary artery without angina pectoris; I25.2 Old myocardial infarction; E03.9 Hypothyroidism, unspecified; E11.22 Type 2 diabetes mellitus with diabetic chronic kidney disease; E66.9 Obesity, unspecified; N40.0 Benign prostatic hyperplasia without lower urinary tract symptoms; I12.9 Hypertensive chronic kidney disease with stage 1 through stage 4 chronic kidney disease, or unspecified chronic kidney disease; K44.9 Diaphragmatic hernia without obstruction or gangrene; N18.9 Chronic kidney disease, unspecified; Z79.84 Long term (current) use of oral hypoglycemic drugs; Z79.82 Long term (current) use of aspirin; Z99.89 Dependence on other enabling machines and devices; Z79.890 Hormone replacement therapy; Z60.2 Problems related to living alone; Z79.02 Long term (current) use of antithrombotics/antiplatelets; Z79.899 Other long term (current) drug therapy
CPT/HCPCS: 36415; 71045; 74174; 80048; 80053; 81001; 82009; 82272; 82728; 82803; 83540; 83550; 83605; 83690; 83735; 83880; 84439; 84443; 84484; 85007; 85014; 85018; 85025; 86850; 87040; 87507; 87636; 88305; 88313; 93005; 97162; 97166; 97530; 99291; G0328; G0378; J0171; J2405; J2543; J3475; J7030; J7120; P9016; Q9967

== ENCOUNTER 2024-11-30 13:06 | Outpatient (CLI) | payer MEDICARE, SELFPAY ==
--- NOTE | 2024-11-30 | CA_ITS ---
APPROVED REPORT EXAM: Comprehensive 2D, Doppler, and color-flow Echocardiogram Attendant Arcade: Roshni Bernard CRT Ht: 5 ft 8 in Wt: 268lbs BSA: 2.31 BP: 129/57 mmHg Indications: Congestive Heart Failure, CAD, Hyperlipidemia, Hypertension/HDD 2D Dimensions LA Volume 66.80 mL LA Volume Index 28.20 mL/m2 (M/F) 16-34 M-Mode Dimensions RVDd 2.29 cm (0.9-2.6) LA Diam 4.24 cm (1.9-4.0) LVDd 5.80 cm (3.5-5.7) LVDs 2.58 cm (3.5-5.7) IVSd 1.11 cm (0.6-1.1) PWd 1.04 cm (0.6-1.1) EF (Teich) 85.50% FS 55.50% EDV (Teich) 166.60 mL TAPSE 1.63 (<1.7) ESV (Teich) 24.10 mL LV Diastology E Decel Time 110 (160-240 msec) E/A Ratio 7.41 MED A' 4.10 cm/s LAT A' 4.80 cm/s Aortic Valve AO Peak GR. 8.20 mmHg Mitral Valve MV A Velocity 18.0 (40-130 cm/s) E/A Ratio 7.41 Pulmonary Valve PV Peak Velocity 111.0 (50-150 cm/s) Tricuspid Valve TR P. Velocity 158.00 cm/s RAP Estimate 10.00 mmHg RVSP 20.00 mmHg Left Ventricle The left ventricle is normal size. The left ventricular systolic function is mildly reduced. There is increased LV wall thickness. There is severe hyokinesis of the mid to distsal anterior and anteroseptal LV [place]. The left ventricular diastolic function is normal. LVEF is 45%. Right Ventricle The right ventricle is normal size. The right ventricular systolic function is normal. Atria The left atrium size is normal. The right atrium size is normal. There is no Doppler evidence of interatrial shunt. Aortic Valve The aortic valve opens well. There is no aortic valvular stenosis. No aortic regurgitation is present. Mitral Valve The mitral valve is normal in structure. No evidence of mitral valve stenosis. Trace mitral regurgitation. Tricuspid Valve Tricuspid valve is grossly normal in structure and function. Trace tricuspid regurgitation. There is insufficient TR jet to estimate RVSP. Pulmonic Valve The pulmonary valve is normal in structure. Trace pulmonic regurgitation. Great Vessels The aortic root is normal in size. IVC is normal in size and collapses >50% with inspiration. Pericardium There is no pericardial effusion. Other Information Study Quality: Fair Conclusion Mildly reduced LV systolic function (LVEF 45%). Severe hyokinesis of the mid to distsal anterior and anteroseptal LV [place]. No significant valvular stenosis or regurgitation. Electronically signed by : Florence Miller MD 12/10/2024 14:43:33
== END 2024-11-30 23:59 | disposition home or self-care (01) ==
LOC: RT 13:08
PROVIDERS: PCP Internal Medicine Adolescent Medicine; Visit Provider Physician Assistant
DX: I51.89 Other ill-defined heart diseases (principal); I50.20 Unspecified systolic (congestive) heart failure
CPT/HCPCS: 93306

== ENCOUNTER 2025-02-28 10:29 | Inpatient (IN) | payer MEDICARE, SELFPAY ==
[2025-02-28] VITALS (13 sets, daily range): BP systolic 117–161; BP diastolic 65–89; PULSE 70–90; RESP 11–21; TEMP 36.6–36.7; O2SAT 97–100; BMI 40.1
--- NOTE | 2025-02-28 10:36 | ECG_ITS ---
APPROVED REPORT Exam: Resting ECG HR:87 bpm ECG Measurements Heart Rate 87 AXES MN 179 P 69 QRSd 92 QRS 6 QT 416 T -23 QTc 461 Conclusion SINUS RHYTHM POSSIBLE RIGHT ATRIAL ENLARGEMENT [0.25mV P-WAVE] POSSIBLE LEFT ATRIAL ENLARGEMENT [-0.1mV P-WAVE IN V1/V2] LOW QRS VOLTAGE IN PRECORDIAL LEADS [QRS DEFLECTION < 1.0 mV IN CHEST LEADS] SEPTAL MYOCARDIAL INFARCTION , PROBABLY OLD [40+ ms Q WAVE IN V1/V2] ST DEVIATION AND MODERATE T-WAVE ABNORMALITY, CONSIDER INFERIOR ISCHEMIA [-0.1+ mV T-WAVE IN II/aVF] ABNORMAL ECG Significant chatter limits diagnostic ability of this EKG Electronically signed by : JOHANA MARCOS, 03/02/2025 14:06:28
--- NOTE | 2025-02-28 10:41 | HMH.EDGENADL ---
Discharge Plan Disposition Patient Disposition: Admitted Condition: Fair Prescriptions Prescriptions: No Action clopidogrel 75 mg tablet 75 mg PO DAILY Qty: 90 3RF furosemide 20 mg tablet 20 mg PO Patient Comments: TAKE ONE TABLET BY MOUTH ON MONDAYS, WEDNESDAY AND FRIDAYS dapagliflozin propanediol [Farxiga] 10 mg tablet 10 mg PO DAILY Qty: 30 5RF famotidine 40 mg tablet 40 mg PO HS Patient Comments: TAKE 1 TABLET BY MOUTH ONCE DAILY AT BEDTIME spironolactone 25 mg tablet 25 mg PO DAILY Patient Comments: TAKE 1 TABLET BY MOUTH ONCE DAILY carvedilol 12.5 mg tablet 12.5 mg PO BID Qty: 60 5RF Rx Instructions: must administer with a meal/food nitroglycerin 0.4 mg tablet, sublingual 0.4 mg sublingual Q5M PRN (Reason: chest pain) Qty: 25 0RF Rx Instructions: do not exceed 3 doses per episode tamsulosin 0.4 MG capsule 0.8 mg PO HS levothyroxine 100 mcg tablet 50 mcg PO DAILY Patient Comments: TAKE 1/2 (ONE-HALF) TABLET BY MOUTH ONCE DAILY valsartan 80 mg Tablet 80 mg PO BID Referrals Follow up/Referrals: Provider,Referral, MD [Referring, Medical] - See instructions Clinical Impressions Clinical Impression: Acute non-ST elevation myocardial infarction (NSTEMI), UGIB (upper gastrointestinal bleed) Print Language Print Language: Polish Discharge ED Provider: Montrell Glasgow Adult HPI General Chief complaint: Chest Pain Stated complaint: Chest pain Time Seen by Provider: 02/28/25 10:40 History of Present Illness HPI narrative: Patient is a 79-year-old male with a history of coronary artery disease s/p PCI, duodenal ulcer with hemorrhage, he is presenting today with chest pain from his family medicine provider's office. Dr. Mckeon called to provide report and patient clinical lab assistant report reports that he is at her mid chest pain over the last several weeks, worse on exertion, resolving with rest. He also reports that he had hematemesis last week, now has turned to melena. No further hematemesis, but does have gnawing epigastric pain that is persistent. Denies any cough or congestion or recent sick contacts. Related Data Home Medications ?Medication ?Instructions ?Recorded ?Confirmed tamsulosin 0.4 mg capsule 0.8 mg PO HS 04/04/18 01/15/25 levothyroxine 100 mcg tablet 50 mcg PO DAILY 05/30/24 01/15/25 furosemide 20 mg tablet 20 mg PO MOWEFR 08/17/24 01/15/25 valsartan 80 mg tablet 80 mg PO BID 09/04/24 01/15/25 famotidine 40 mg tablet 40 mg PO HS 12/13/24 01/15/25 spironolactone 25 mg tablet 25 mg PO DAILY 12/13/24 01/15/25 Previous Rx's ?Medication ?Instructions ?Recorded clopidogrel 75 mg tablet 75 mg PO DAILY #90 tabs 07/18/24 dapagliflozin propanediol 10 mg 10 mg PO DAILY #30 tabs 11/15/24 tablet (Farxiga) carvedilol 12.5 mg tablet 12.5 mg PO BID #60 tabs 12/13/24 nitroglycerin 0.4 mg sublingual 0.4 mg sublingual Q5M PRN chest 12/13/24 tablet pain #25 tabs Allergies Allergy/AdvReac Type Severity Reaction Status Date / Time Antihistamines - Alkylamine Allergy Mild MADE SKIN Verified 01/15/25 14:51 (ANTIHISTAMINES - ALKYLAMINE) FEEL LIKE ON FIRE NSAIDS (Non-Steroidal AdvReac Severe kidney Verified 01/15/25 14:51 Anti-Inflamma failure [facility] Disclaimer: The information contained in this section may have been updated after the patient was seen, as this information can be updated by other users. Medical History Bilateral lower leg cellulitis Lymphedema of both lower extremities Chronic acquired lymphedema UGIB (upper gastrointestinal bleed) PUD (peptic ulcer disease) Duodenitis Nausea and vomiting Nausea Encounter for laboratory testing for COVID-19 virus Diabetes mellitus Gastroenteritis and colitis, viral Dehydration PICC (peripherally inserted central catheter) in place Diabetic foot Multiple drug resistant organism (MDRO) culture positive Near syncope Cellulitis, leg Ingrowing Toenail Callus of foot Onychoincurvatum Onychodystrophy Pain around toenail, left foot Ingrowing Toenail Cellulitis of right leg Arthritis PAD (peripheral artery disease) HTN (hypertension), benign Heart murmur T2DM (type 2 diabetes mellitus) BPH (benign prostatic hyperplasia) Peripheral vascular disease Surgical History Hx of colonoscopy History of total left hip replacement Family History Other Cancer Heart attack Social History Smoking Status: Current some day smoker tobacco type: cigarettes packs per day: 1 alcohol intake: never substance use type: denies use current occupational status: retired Travel in the last 8 weeks?: None household members: none housing: house current occupation: [employer] current occupational exposures/hazards: No caffeine: Yes Have you lived/traveled outside US in past 30 days?: No Contact w/someone who lives/traveled outside US past 30 days?: No Exposure to someone with infectious disease in past 14 days?: No Do you have a fever (greater than 100.4 F or 38 C)?: No Have you tested positive for COVID-19?: No Exposed to someone with COVID-19 in past 14 days?: No Do you have a sore throat?: No Do you have a cough?: No Do you have any weakness?: No Do you have any diarrhea?: No Are you experiencing any unusual bleeding?: No Do you have any muscle aches/pain?: No Do you have any abdominal pain?: No Are you experiencing loss of taste or smell?: No Other Medical History Have you received the Flu Vaccine for this season: No Have you received the Pneumonia Vaccine: No ROS Obtained: Yes All systems reviewed & no additional complaints except as documented Physical Exam General General appearance: alert and in no apparent distress Head Head exam: atraumatic and normocephalic Eye Eye exam: Present PERRL and EOMI ENT ENT exam: Present normal oropharynx Neck Neck exam: Present full ROM and trachea midline Chest Chest inspection: Present symmetric chest wall rise Respiratory Respiratory exam: Present normal lung sounds bilaterally; Absent stridor Cardiovascular Cardiovascular exam: Present regular rate and normal rhythm Abdominal Exam Abdominal exam: Present soft; Absent distention or tenderness Extremities Exam Extremities exam: Present full ROM Neurological Exam Neurological exam: Present alert and oriented X3 Psychiatric Psychiatric exam: Present normal mood Skin Skin exam: Present warm and dry Medical Decision Making Medical Records Screening: Per USPSTF and CDC recommendations, given the prevalence of disease in our region, it is our hospital?s policy to screen for HIV and viral Hepatitis for all patients aged 18 and over and those with ongoing risk factors. Real Inquiry Pt receiving controlled substance: No Vital Signs: 02/28/25 10:40 02/28/25 10:44 02/28/25 11:00 Temperature 97.9 F Temperature Source Oral Pulse Rate 82 79 Pulse Rate [Right Brachial] 81 Respiratory Rate 16 11 L Blood Pressure Blood Pressure [Right Arm] 161/89 H Blood Pressure Mean [Right Arm] 113 Blood Pressure Source [Right Arm] Automatic Cuff 02 Sat by Pulse Oximetry 100 99 Oxygen Delivery Method Room Air Nasal Cannula 02/28/25 11:30 02/28/25 12:01 Temperature Temperature Source Pulse Rate 76 Pulse Rate [Right Brachial] Respiratory Rate 13 14 Blood Pressure 145/79 H 117/65 Blood Pressure [Right Arm] Blood Pressure Mean [Right Arm] Blood Pressure Source [Right Arm] 02 Sat by Pulse Oximetry 99 Oxygen Delivery Method Room Air Lab Data Lab Results 02/28/25 10:50: WBC 11.8 H, RBC 3.29 L, Hgb 8.9 L, Hct 29.2 L, MCV 88.8, MCH 27.1, MCHC 30.5 L, RDW 15.9, Plt Count 408, MPV 9.0, Neut % (Auto) 65.5, Lymph % (Auto) 17.5, [place] % (Auto) 10.6 H, Eos % (Auto) 4.0, Baso % (Auto) 0.7, Neut # (Auto) 7.8, Lymph # (Auto) 2.1, [place] # (Auto) 1.3 H, Eos # (Auto) 0.5 H, Baso # (Auto) 0.1, PT 11.1, INR 1.00, Sodium 137, Potassium 4.5, Chloride 102, Carbon Dioxide 25, Anion Gap 14.5, BUN 25 H, Creatinine 1.40 H, Estimated Creat Clear 74, Estimated GFR 49 L, Est GFR ( Amer) 59, Glucose 102 H, Calcium 8.5, Magnesium 1.8, Total Bilirubin 0.5, AST 35, ALT 36, Alkaline Phosphatase 81, Troponin I 1.28 H, NT-Pro-B Natriuret Pep 6140 H, Total Protein 7.6 D, Albumin 4.2, Globulin 3.4 H, Albumin/Globulin Ratio 1.2, TSH 5.16 H, Free T4 1.25 02/28/25 10:50 02/28/25 10:50 Orders (Tests/Meds): ED MEDICATIONS Generic Name Dose Route Start Last Admin Trade Name Javad PRN Reason Stop Dose Admin Acetaminophen 650 mg 02/28/25 12:16 Acetaminophen 325mg Tab PO 03/30/25 12:15 Q6HP PRN Fever or Mild Pain (1-3) Nitroglycerin/Dextrose 250 mls @ 3 mls/hr 02/28/25 12:00 02/28/25 12:16 Nitroglycerin 50mg/250ml D5w IV 03/30/25 11:59 5 mcg/min .Q24H TAWNYA 1.5 mls/hr Protocol Administration 10 MCG/MIN Ondansetron HCl 4 mg 02/28/25 12:16 Ondansetron 4mg/2ml Vial IV 03/30/25 12:15 Q6HP PRN Nausea Pantoprazole Sodium 40 mg 02/28/25 21:00 Pantoprazole 40mg Vial IV 03/30/25 20:59 BID TAWNYA Sodium Chloride 10 ml 02/28/25 12:25 Sodium Chloride 0.9% 10ml Vial IV 03/30/25 12:24 NEEDED PRN Reconstitute Medications Sodium Chloride 10 ml 02/28/25 12:25 Sodium Chloride 0.9% 10ml Flush Syringe IV 03/30/25 12:24 NEEDED PRN Maintain IV Site Discontinued Medications Generic Name Dose Route Start Last Admin Trade Name Javad PRN Reason Stop Dose Admin Aspirin 325 mg 02/28/25 11:23 02/28/25 11:31 Aspirin 325mg Tablet PO 02/28/25 11:24 325 mg ONCE ONE Administration Bumetanide 1 mg 02/28/25 12:22 Bumetanide 1mg/4ml Vial IV 02/28/25 12:23 ONCE ONE Pantoprazole Sodium 80 mg/ 100 mls @ 100 mls/hr 02/28/25 11:20 02/28/25 11:31 Sodium Chloride IV 02/28/25 12:19 100 mls/hr ONCE ONE Administration ORDERS Category Date Time Status Consult to Cardiology [CONS] Routine Cons 02/28/25 12:17 Active GI consult [Consult to Gastroenterology] [CONS] Routine Cons 02/28/25 12:22 Active XR chest portable Stat Exams 02/28/25 10:42 Taken BNP [NT Pro Brain Natriuretic Pep.] Stat Lab 02/28/25 10:50 Completed CBC w/Auto Diff [Complete Blood Count Auto Diff] Stat Lab 02/28/25 10:50 Completed CMP [Comprehensive Metabolic Panel] Stat Lab 02/28/25 10:50 Completed Complete Blood Count Auto Diff AMLAB Lab 03/01/25 06:00 Ordered Complete Blood Count Auto Diff AMLAB Lab 03/02/25 06:00 Ordered Complete Blood Count Auto Diff AMLAB Lab 03/03/25 06:00 Ordered Comprehensive Metabolic Panel AMLAB Lab 03/01/25 06:00 Ordered Comprehensive Metabolic Panel AMLAB Lab 03/02/25 06:00 Ordered Comprehensive Metabolic Panel AMLAB Lab 03/03/25 06:00 Ordered Free T4 (Free Thyroxine) Stat Lab 02/28/25 10:50 Completed Lipid Panel AMLAB Lab 03/01/25 06:00 Ordered MAG [Magnesium] Stat Lab 02/28/25 10:50 Completed Magnesium AMLAB Lab 03/01/25 06:00 Ordered PT INR [Prothrombin Time INR] Stat Lab 02/28/25 10:50 Completed TSH [Thyroid Stimulating Hormone] Stat Lab 02/28/25 10:50 Completed Trop I [Troponin I] Stat Lab 02/28/25 10:50 Completed Troponin I Q3H Lab 02/28/25 13:45 Ordered Troponin I Q3H Lab 02/28/25 16:45 Ordered Medical Decision Narrative: In summary, this 79-year-old male presents to the emergency department today with chest pain. On initial evaluation patient is afebrile, hemodynamically stable and in no acute distress. On exam is warm and well-perfused. Heart is regular rate and rhythm lung sounds clear to auscultation bilaterally. Does have reproducible tenderness in his epigastrium. No other abdominal tenderness. Differential diagnosis includes, but is not limited to, gastritis, ulcer, duodenal ulcer, ACS, [place], pneumothorax. I suspect that he is having a component of stable angina given that he is having worsening chest pain that is left-sided that resolves with rest, but reasonable to consult cardiology. I did an interactive discussion with them and ultimately they wish to admit the patient and continue to observe him with serial H&H's given the complicating factor of possible GI bleed. Ultimately, hemoglobin reviewed and demonstrate slight decrease from prior currently 8.8 down from 9.5. Also concerning is his troponin which is elevated 1.2 today which is a new elevation. Does have kidney disease, but his creatinine is improved. EKGs independently interpreted by myself and demonstrate normal sinus rhythm with T wave inversions in the precordial leads and 2 and 3. This is consistent with compared with prior per my review of the MAR. Independently reviewed chest x-ray and interpreted to demonstrate no acute intrathoracic process. Ultimately, patient will be admitted to the hospitalist service for further workup or definitive management will be transferred in hemodynamically stable condition Critical Care Critical Care Time Critical Care Time: No
--- NOTE | 2025-02-28 10:42 | XR_ITS ---
PROCEDURE INFORMATION: Exam: XR Chest Exam date and time: 02/28/2025 10:50 AM Age: 79 years old Clinical indication: Pain; Chest pressure; Additional info: Cp TECHNIQUE: Imaging protocol: Radiologic exam of the chest. Views: 1 view. COMPARISON: CR XR CHEST PORTABLE 09/04/2024 4:09 PM FINDINGS: Lungs: Lungs are clear. No consolidation. Pleural spaces: No pleural effusion. No pneumothorax. Heart/Mediastinum: Cardiomediastinal silhouette is normal. Mild aortic calcification. Bones/joints: No acute abnormality. IMPRESSION: No acute findings.
[2025-02-28 10:57] LABS: Hematocrit 29.2 % (42.0-52.0); Hemoglobin 8.9 g/dL (14.1-18.0); Immature Granulocytes % 1.7 %; Mean Corpuscular HGB Conc 30.5 g/dL (31.8-35.4); Mean Corpuscular Hemoglobin 27.1 pg (27.0-31.2); Mean Corpuscular Volume 88.8 fl (80-94); Nucleated Red Blood Cells % 0 %; Platelet Count 408 K/mm3 (142-424); Red Blood Count 3.29 M/mm3 (4.60-6.20); Red Cell Distribution Width-SD 51.8 fL; White Blood Count 11.8 K/mm3 (4.8-10.8)
[2025-02-28 11:08] LABS: Alanine Aminotransferase 36 U/L (12-78); Albumin Level 4.2 g/dl (3.5-5.0); Albumin/Globulin Ratio 1.2 (1.1-1.8); Alkaline Phosphatase 81 U/L (38-126); Anion Gap 14.5 mEq/L (5-15); Aspartate Amino Transferase 35 U/L (17-59); Bilirubin,Total 0.5 mg/dl (0.2-1.3); Blood Urea Nitrogen 25 mg/dl (9-20); Calcium 8.5 mg/dl (8.4-10.2); Carbon Dioxide 25 mmol/L (22.0-30.0); Chloride 102 mmol/L (98-107); Creatinine Clearance Estimated 74 mL/min (50-200); Creatinine,Serum 1.40 mg/dl (0.66-1.25); Estimated Glomerular Filt Rate 49 ml/min (>60); GFR (African American) 59 ML/MIN (>60); Globulin 3.4 g/dL (1.3-3.2); Glucose 102 mg/dl (74-100); Magnesium 1.8 mg/dl (1.6-2.3); Potassium 4.5 mmoL/L (3.5-5.1); Sodium 137 mmol/L (136-145); Total Protein,Serum 7.6 g/dl (6.3-8.2)
[2025-02-28 11:10] LABS: INR 1.00 (0.9-1.1); Prothrombin Time 11.1 seconds (10.1-12.5)
[2025-02-28 11:20] LABS: NT Pro Brain Natriuretic Pep. 6140 pg/mL (0-450)
[2025-02-28 11:21] LABS: Troponin I 1.28 ng/ml (0.00-0.034)
--- NOTE | 2025-02-28 11:26 | ECG_ITS ---
APPROVED REPORT Exam: Resting ECG HR:81 bpm ECG Measurements Heart Rate 81 AXES IL 205 P 59 QRSd 92 QRS 5 QT 383 T 44 QTc 421 Conclusion SINUS RHYTHM LOW QRS VOLTAGE IN PRECORDIAL LEADS [QRS DEFLECTION < 1.0 mV IN CHEST LEADS] SEPTAL MYOCARDIAL INFARCTION , PROBABLY OLD [40+ ms Q WAVE IN V1/V2] ABNORMAL ECG Electronically signed by : JOHANA MARCOS, 03/02/2025 14:05:53
[2025-02-28] MEDS: PANTOPRAZOLE SODIUM 80 MG in 0.9 % SODIUM CHLORIDE 100 ML 100 MG IV (11:31)
[2025-02-28] MEDS: ASPIRIN 325MG TABLET 325 MG PO (11:31)
--- NOTE | 2025-02-28 11:33 | PC.NURSE ---
Cardiology paged, on the phone with Dr. Glasgow now
[2025-02-28 11:38] LABS: Thyroid Stimulating Hormone 5.16 uIU/mL (0.465-4.68)
--- NOTE | 2025-02-28 11:39 | PC.NURSE ---
Calling Dr. Conway per [facility] staff, states Dr. Conway is not here today and will need to be reached on his cellphone.
--- NOTE | 2025-02-28 11:41 | PC.NURSE ---
Dr. Glasgow called Dr. Conway on his personal cell. left
--- NOTE | 2025-02-28 11:56 | PC.NURSE ---
Zoraida called back, transferred call to Dr. Glasgow
--- NOTE | 2025-02-28 12:04 | PC.NURSE ---
Snehal from cardiology is bedside consulting with the pt.
[2025-02-28 12:14] LABS: Free T4 (Free Thyroxine) 1.25 ng/dl (0.78-2.19)
--- NOTE | 2025-02-28 12:15 | EXP.CARD.CON ---
History of Present Illness History of Present Illness Consult date: 02/28/25 Requesting physician: Luis Marino Consult reason: chest pain Chief complaint: chest pain History of present illness: This is a 79-year-old white male with past medical history of coronary artery disease with 5 vessel stenting/reconstruction with 7 JAMIL May 2024, history of HFrEF with a known ejection fraction of 45% 12/2024 and peptic ulcer disease who presented to emergency department with complaints of chest pressure, progressive and worsening over a week. Patient reports he has been dealing with a peptic ulcer for a few weeks now and having episodes of melena. Went to see Dr. Montana today and was advised to go to the ER for chest pain and abnormal EKG. Upon presentation to ER EKG shows normal sinus rhythm at a rate of [address] depression as seen on previous EKGs. Hemoglobin is stable at 8.9 (at patient's baseline), creatinine is 1.4, first troponin 1.28 and BNP of 6140 was noted. Chest x-ray is pending. Patient will be admitted for cardiology evaluation and monitoring as well as GI consult for possible GI bleed. [facility] Disclaimer: The information contained in this section may have been updated after the patient was seen, as this information can be updated by other users. Medical History Bilateral lower leg cellulitis Lymphedema of both lower extremities Chronic acquired lymphedema UGIB (upper gastrointestinal bleed) PUD (peptic ulcer disease) Duodenitis Nausea and vomiting Nausea Encounter for laboratory testing for COVID-19 virus Diabetes mellitus Gastroenteritis and colitis, viral Dehydration PICC (peripherally inserted central catheter) in place Diabetic foot Multiple drug resistant organism (MDRO) culture positive Near syncope Cellulitis, leg Ingrowing Toenail Callus of foot Onychoincurvatum Onychodystrophy Pain around toenail, left foot Ingrowing Toenail Cellulitis of right leg Arthritis PAD (peripheral artery disease) HTN (hypertension), benign Heart murmur T2DM (type 2 diabetes mellitus) BPH (benign prostatic hyperplasia) Peripheral vascular disease Surgical History Hx of colonoscopy History of total left hip replacement Family History Other Cancer Heart attack Social History Smoking Status: Current some day smoker tobacco type: cigarettes packs per day: 1 alcohol intake: never substance use type: denies use current occupational status: retired Travel in the last 8 weeks?: None household members: none housing: house current occupation: [employer] current occupational exposures/hazards: No caffeine: Yes Have you lived/traveled outside US in past 30 days?: No Contact w/someone who lives/traveled outside US past 30 days?: No Exposure to someone with infectious disease in past 14 days?: No Do you have a fever (greater than 100.4 F or 38 C)?: No Have you tested positive for COVID-19?: No Exposed to someone with COVID-19 in past 14 days?: No Do you have a sore throat?: No Do you have a cough?: No Do you have any weakness?: No Do you have any diarrhea?: No Are you experiencing any unusual bleeding?: No Do you have any muscle aches/pain?: No Do you have any abdominal pain?: No Are you experiencing loss of taste or smell?: No Review of Systems Review of Systems Review of systems:: pertinent systems reviewed and negative unless documented below Constitutional Constitutional: Reports system reviewed and no additional complaints, except as documented *Cardiovascular Cardiovascular: Reports chest pain *Respiratory Respiratory: Reports system reviewed and no additional complaints, except as documented *Gastrointestinal Gastrointestinal: Reports system reviewed and no additional complaints, except as documented, Reports hematemesis and Reports melena *Neurologic Neurologic: Reports system reviewed and no additional complaints, except as documented and Denies confusion Psychiatric Psychiatric: Reports system reviewed and no additional complaints, except as documented and Denies confusion Exam Data for Last 24 hours Vital signs and Labs for Last 24 Hours: Temp Pulse Resp BP Pulse Ox O2 Del Method 97.9 F 76 13 145/79 H 99 Room Air 02/28/25 10:40 02/28/25 11:30 02/28/25 11:30 02/28/25 11:30 02/28/25 11:30 02/28/25 11:30 Laboratory Results - last 24 hr 02/28/25 10:50: WBC 11.8 H, RBC 3.29 L, Hgb 8.9 L, Hct 29.2 L, MCV 88.8, MCH 27.1, MCHC 30.5 L, RDW 15.9, Plt Count 408, MPV 9.0, Neut % (Auto) 65.5, Lymph % (Auto) 17.5, [place] % (Auto) 10.6 H, Eos % (Auto) 4.0, Baso % (Auto) 0.7, Neut # (Auto) 7.8, Lymph # (Auto) 2.1, [place] # (Auto) 1.3 H, Eos # (Auto) 0.5 H, Baso # (Auto) 0.1, PT 11.1, INR 1.00, Sodium 137, Potassium 4.5, Chloride 102, Carbon Dioxide 25, Anion Gap 14.5, BUN 25 H, Creatinine 1.40 H, Estimated Creat Clear 74, Estimated GFR 49 L, Est GFR ( Amer) 59, Glucose 102 H, Calcium 8.5, Magnesium 1.8, Total Bilirubin 0.5, AST 35, ALT 36, Alkaline Phosphatase 81, Troponin I 1.28 H, NT-Pro-B Natriuret Pep 6140 H, Total Protein 7.6 D, Albumin 4.2, Globulin 3.4 H, Albumin/Globulin Ratio 1.2, TSH 5.16 H I & O for Last 24 hours: Intake & Output 02/25/25 02/26/25 02/27/25 02/28/25 23:59 23:59 23:59 23:59 Weight 264 lb Constitutional Constitutional: no acute distress *Routine Respiratory Exam Respiratory: Present CTA bilaterally and symmetric chest movement *Routine Cardiovascular Exam Cardiovascular: Present RRR, Normal S1 and Normal S2 *Routine Abdominal Exam Abdominal: Present soft and normoactive bowel sounds; Absent tenderness *Routine Extremities Exam Extremities: Present full ROM and normal capillary refill; Absent edema *Routine Skin Exam Skin: Present intact, dry and warm Detailed Neck Exam: Thyroids Thyroid: Absent bruit Meds Home Medications and Allergies Home Medications ?Medication ?Instructions ?Recorded ?Confirmed ?Type tamsulosin 0.4 mg capsule 0.8 mg PO HS 04/04/18 01/15/25 History levothyroxine 100 mcg tablet 50 mcg PO DAILY 05/30/24 01/15/25 History clopidogrel 75 mg tablet 75 mg PO DAILY #90 tabs 07/18/24 01/15/25 Rx furosemide 20 mg tablet 20 mg PO MOWEFR 08/17/24 01/15/25 History valsartan 80 mg tablet 80 mg PO BID 09/04/24 01/15/25 History dapagliflozin propanediol 10 mg 10 mg PO DAILY #30 tabs 11/15/24 01/15/25 Rx tablet (Farxiga) carvedilol 12.5 mg tablet 12.5 mg PO BID #60 tabs 12/13/24 01/15/25 Rx famotidine 40 mg tablet 40 mg PO HS 12/13/24 01/15/25 History nitroglycerin 0.4 mg sublingual 0.4 mg sublingual Q5M PRN chest 12/13/24 01/15/25 Rx tablet pain #25 tabs spironolactone 25 mg tablet 25 mg PO DAILY 12/13/24 01/15/25 History New Prescriptions to Start Prescriptions: Allergies Allergy/AdvReac Type Severity Reaction Status Date / Time Antihistamines - Alkylamine Allergy Mild MADE SKIN Verified 01/15/25 14:51 (ANTIHISTAMINES - ALKYLAMINE) FEEL LIKE ON FIRE NSAIDS (Non-Steroidal AdvReac Severe kidney Verified 01/15/25 14:51 Anti-Inflamma failure Assessment and Plan *Assessment and plan (1) CAD (coronary artery disease): Status: Acute Qualifiers: Associated angina: without angina Coronary Disease-Associated Artery/Lesion type: [place] artery [place] vs. transplanted heart: [place] heart Qualified Code(s): I25.10 - Atherosclerotic heart disease of [place] coronary artery without angina pectoris Category: Medical Code(s): I25.10 - Atherosclerotic heart disease of [place] coronary artery without angina pectoris (2) HFrEF (heart failure with reduced ejection fraction): Status: Acute Category: Medical Code(s): I50.20 - Unspecified systolic (congestive) heart failure (3) Chest pain: Status: Acute Category: Medical Code(s): R07.9 - Chest pain, unspecified Plan Hx of CAD Chest pain NSTEMI 5 vessel stenting/reconstructions with 7 JAMIL 05/2024 EKG shows NSR rate of [address] depression as previously noted on ekgs. trop 1.28, repeat pending Continue carvedilol 12.5 mg p.o. twice daily, Plavix 75 mg p.o. daily(as long as hemoglobin remains stable) and start atorvastatin 40 mg daily Nitro drip for pain Chronic HFrEF Echo November 2024 shows an EF of 45% with severe hypokinesis of the mid to distal anterior and anteroseptal LV [place] with no significant valvular stenosis or regurg. Repeat limited echo pending BNP on admission 6140 Start Lasix 40 mg p.o. daily. Continue valsartan 80 mg p.o. twice daily and Aldactone 25 mg p.o. daily. Continue Farxiga 10 mg p.o. daily. Concern for GI bleed Reported melena History of duodenal ulcer Hemoglobin stable at 8.9 Protonix started by ER Recommend GI consult CV summary 02/28/2025: Continue to trend troponins. Recommend GI consult for melena and concern for bleed. Repeat limited echo pending. Cardiac meds Carvedilol 12.5 mg p.o. twice daily Plavix 75 mg p.o. daily Atorvastatin 40 mg p.o. daily Lasix 40 mg p.o. daily Valsartan 80 mg p.o. twice daily Aldactone 25 mg p.o. daily Farxiga 10 mg p.o. daily
[2025-02-28] MEDS: NITROGLYCERIN IN 5 % DEXTROSE 250 ML 1.5 MG IV (12:16)
--- NOTE | 2025-02-28 12:20 | PC.NURSE ---
I notified the HS of the need for an ICU bed. We will be holding in the ER at this time.
--- NOTE | 2025-02-28 12:40 | CA_ITS ---
APPROVED REPORT EXAM: Limited 2D Echocardiogram Cloth Bin Packer: Dena Agustin RVT Ht: 5 ft 8 in Wt: 264lbs BSA: 2.30 BP: 145/79 mmHg Indications: CHEST PAIN Echo Enhancing Agent Indication: Endocardial border delineation Agent(s) / Amount(s) Used: Definity 2 cc 2D Dimensions IVSd 1.41 cm M: 0.6-1.2 LVEF (Visual) 46.30 % PWd 0.82 cm M: 0.6 - 1.2 LVDd 5.87 cm M: 4.2 - 5.9 LVDs 4.49 cm M: 2.5 - 4.0 M-Mode Dimensions LA Diam 3.47 cm (1.9-4.0) Other Information Study Quality: Technically Difficult Conclusion This is a limited TTE to evaluate for LV systolic function and wall motion. Limited windows are obtained. Technically difficult study. Ultrasound enhancing agent was administered. The left ventricle is normal in size. There is increased LV wall thickness. There is mild to moderate global hypokinesis present. There is moderate hypokinesis of the septal, anteroseptal, inferoseptal, and apical LV [place]. LVEF is 40-45%. Electronically signed by : Florence Miller MD 02/28/2025 17:23:25
--- NOTE | 2025-02-28 12:53 | EXP.HP ---
History of Present Illness *Admission Date: 02/28/25 *Reason for visit:: Chest pressure *History of present illness: Mr. Mckeon is a 79-year-old male with a medical history significant for HFrEF, NSTEMI/CAD s/p 5 stents, hypothyroidism, BPH who presents for several days of of worsening chest pain with exertion. Also reports hematemesis and melena over the past week. On workup in the ER, patient found to be anemic at 8.9, consistent with chronic. Troponin elevated at 1.4. EKG obtained does not show ST elevations. Patient has previously presented with similar findings and found to have gastric ulcer. In light of his presentation, lab abnormalities, unstable angina, medicine consulted for admission. Cardiology and GI consulted to assist with care. Stable on room air. Chest pain better after nitro drip in the ED, will try nitro drip off at this time. Repeat hemoglobin pending. States he has had some black stools. Denies syncope, confusion. Chest pressure worse with exertion. [facility] Disclaimer: The information contained in this section may have been updated after the patient was seen, as this information can be updated by other users. Medical History Bilateral lower leg cellulitis Lymphedema of both lower extremities Chronic acquired lymphedema UGIB (upper gastrointestinal bleed) PUD (peptic ulcer disease) Duodenitis Nausea and vomiting Nausea Encounter for laboratory testing for COVID-19 virus Diabetes mellitus Gastroenteritis and colitis, viral Dehydration PICC (peripherally inserted central catheter) in place Diabetic foot Multiple drug resistant organism (MDRO) culture positive Near syncope Cellulitis, leg Ingrowing Toenail Callus of foot Onychoincurvatum Onychodystrophy Pain around toenail, left foot Ingrowing Toenail Cellulitis of right leg Arthritis PAD (peripheral artery disease) HTN (hypertension), benign Heart murmur T2DM (type 2 diabetes mellitus) BPH (benign prostatic hyperplasia) Peripheral vascular disease Surgical History Hx of colonoscopy History of total left hip replacement Family History Other Cancer Heart attack Social History Smoking Status: Current some day smoker tobacco type: cigarettes packs per day: 1 alcohol intake: never substance use type: denies use current occupational status: retired Travel in the last 8 weeks?: None household members: none housing: house current occupation: [employer] current occupational exposures/hazards: No caffeine: Yes Have you lived/traveled outside US in past 30 days?: No Contact w/someone who lives/traveled outside US past 30 days?: No Exposure to someone with infectious disease in past 14 days?: No Do you have a fever (greater than 100.4 F or 38 C)?: No Have you tested positive for COVID-19?: No Exposed to someone with COVID-19 in past 14 days?: No Do you have a sore throat?: No Do you have a cough?: No Do you have any weakness?: No Do you have any diarrhea?: No Are you experiencing any unusual bleeding?: No Do you have any muscle aches/pain?: No Do you have any abdominal pain?: No Are you experiencing loss of taste or smell?: No Other Medical History Have you received the Flu Vaccine for this season: No Have you received the Pneumonia Vaccine: No Review of Systems Review of Systems Review of systems (narrative): 14 point review of systems performed, pertinent positives and negatives as per HPI *Neurologic Neurologic: Reports system reviewed and no additional complaints, except as documented and Denies confusion Psychiatric Psychiatric: Denies confusion Meds Home Medications and Allergies Home Medications ?Medication ?Instructions ?Recorded ?Confirmed ?Type tamsulosin 0.4 mg capsule 0.8 mg PO HS 04/04/18 01/15/25 History clopidogrel 75 mg tablet 75 mg PO DAILY #90 tabs 07/18/24 02/28/25 Rx furosemide 20 mg tablet 20 mg PO MOWEFR 08/17/24 02/28/25 History valsartan 80 mg tablet 80 mg PO BID 09/04/24 02/28/25 History dapagliflozin propanediol 10 mg 10 mg PO DAILY #30 tabs 11/15/24 02/28/25 Rx tablet (Farxiga) carvedilol 12.5 mg tablet 12.5 mg PO BID #60 tabs 12/13/24 02/28/25 Rx famotidine 40 mg tablet 40 mg PO HS 12/13/24 02/28/25 History nitroglycerin 0.4 mg sublingual 0.4 mg sublingual Q5M PRN chest 12/13/24 02/28/25 Rx tablet pain #25 tabs spironolactone 25 mg tablet 25 mg PO DAILY 12/13/24 02/28/25 History levothyroxine 50 mcg tablet 50 mcg PO DAILY 02/28/25 02/28/25 History New Prescriptions to Start Prescriptions: Allergies Allergy/AdvReac Type Severity Reaction Status Date / Time Antihistamines - Alkylamine Allergy Mild MADE SKIN Verified 01/15/25 14:51 (ANTIHISTAMINES - ALKYLAMINE) FEEL LIKE ON FIRE NSAIDS (Non-Steroidal AdvReac Severe kidney Verified 01/15/25 14:51 Anti-Inflamma failure Exam Data for Last 24 hours Vital signs and Labs for Last 24 Hours: Temp Pulse Resp BP Pulse Ox O2 Del Method 97.9 F 76 14 117/65 99 Room Air 02/28/25 10:40 02/28/25 11:30 02/28/25 12:01 02/28/25 12:01 02/28/25 11:30 02/28/25 11:30 Laboratory Results - last 24 hr 02/28/25 10:50: WBC 11.8 H, RBC 3.29 L, Hgb 8.9 L, Hct 29.2 L, MCV 88.8, MCH 27.1, MCHC 30.5 L, RDW 15.9, Plt Count 408, MPV 9.0, Neut % (Auto) 65.5, Lymph % (Auto) 17.5, Daniels % (Auto) 10.6 H, Eos % (Auto) 4.0, Baso % (Auto) 0.7, Neut # (Auto) 7.8, Lymph # (Auto) 2.1, Daniels # (Auto) 1.3 H, Eos # (Auto) 0.5 H, Baso # (Auto) 0.1, PT 11.1, INR 1.00, Sodium 137, Potassium 4.5, Chloride 102, Carbon Dioxide 25, Anion Gap 14.5, BUN 25 H, Creatinine 1.40 H, Estimated Creat Clear 74, Estimated GFR 49 L, Est GFR ( Amer) 59, Glucose 102 H, Calcium 8.5, Magnesium 1.8, Total Bilirubin 0.5, AST 35, ALT 36, Alkaline Phosphatase 81, Troponin I 1.28 H, NT-Pro-B Natriuret Pep 6140 H, Total Protein 7.6 D, Albumin 4.2, Globulin 3.4 H, Albumin/Globulin Ratio 1.2, TSH 5.16 H, Free T4 1.25 I & O for Last 24 hours: Intake & Output 02/25/25 02/26/25 02/27/25 02/28/25 23:59 23:59 23:59 23:59 Weight 119.748 kg Constitutional Constitutional: mild distress, morbidly obese, chronically ill appearing and cooperative *Routine HEENT Exam Head: Present normocephalic Eye: Present EOMI and PERRL ENT: Present mucous membranes moist Comments: Poor dentition *Routine Neck Exam Neck: Present supple; Absent lymphadenopathy *Routine Respiratory Exam Respiratory: Present CTA bilaterally; Absent rhonchi, wheezes or crackles *Routine Cardiovascular Exam Cardiovascular: Present RRR *Routine Abdominal Exam Abdominal: Present soft, normoactive bowel sounds and tenderness (Epigastric); Absent distended or rebound *Routine Rectal Exam Rectal:: deferred *Routine Genitalia Exam Genitalia:: deferred *Routine Extremities Exam Extremities: Present edema (1+ to knees); Absent cyanosis or clubbing Comments: Chronic venous stasis skin changes. *Routine Skin Exam Skin: Present warm; Absent cyanosis, erythema or rash Comments: Superficial ulceration left foot, scant drainage *Routine Neurological Exam Neurological: Present alert, oriented X3 and moving all extremities; Absent altered mental status Assessment and Plan *Assessment and plan (1) Chest pain: Status: Acute Category: Medical Code(s): R07.9 - Chest pain, unspecified (2) Anemia: Status: Acute Category: Medical Code(s): D64.9 - Anemia, unspecified (3) UGIB (upper gastrointestinal bleed): Status: Resolved Category: Medical Code(s): K92.2 - Gastrointestinal hemorrhage, unspecified (4) CAD (coronary artery disease): Status: Acute Qualifiers: Coronary Disease-Associated Artery/Lesion type: three affiliated artery [place] vs. transplanted heart: three affiliated heart Associated angina: without angina Qualified Code(s): I25.10 - Atherosclerotic heart disease of three affiliated coronary artery without angina pectoris Category: Medical Code(s): I25.10 - Atherosclerotic heart disease of three affiliated coronary artery without angina pectoris (5) HFrEF (heart failure with reduced ejection fraction): Status: Acute Category: Medical Code(s): I50.20 - Unspecified systolic (congestive) heart failure (6) Class 2 obesity: Status: Chronic Category: Medical Code(s): E66.812 - Obesity, class 2 (7) Hypertension: Status: Chronic Qualifiers: Hypertension type: unspecified Qualified Code(s): I10 - Essential (primary) hypertension Category: Medical Code(s): I10 - Essential (primary) hypertension (8) Complaint of melena: Status: Acute Category: Medical Code(s): K92.1 - Melena (9) Typical angina: Status: Acute Category: Medical Code(s): I20.9 - Angina pectoris, unspecified (10) GERD (gastroesophageal reflux disease): Status: Acute Category: Medical Code(s): K21.9 - Gastro-esophageal reflux disease without esophagitis Rachel Mckeon is a 79-year-old male with a medical history significant for HFrEF, NSTEMI/CAD s/p 6 stents May 2024, hypothyroidism, BPH who presents for worsening chest pain over the past several days. States that he has also had an episode of hematemesis and has had dark stools over the past week. Denies fever, cough, headache or shortness of breath. Reports being compliant with his medications. Was stopped on his aspirin recently by his PCP due to concern for possible bleeding and PUD. Workup in the ER concerning for GI bleed and unstable angina. Troponin elevated at 1.4. Discussed case with ER physician, request admission for further workup of possible GI bleed and stabilization clinically. I agreed to admit for further care. Admitted to stepdown due to being on a nitro drip. Upon arrival to the unit, blood pressure is stable and patient is free. Problems addressed as follows: #Upper GI bleed #Chronic anemia ?GI evaluated, has history of bleeding ulcer 2 to 3 years ago. Given report of melena and hematemesis, will initiate high intensity pantoprazole 40 mg IV twice daily. - Stool occult pending - Hemoglobin 8.9, between 8 and 9 over the past year. BUN normal at 25, creatinine 1.4. - Consider EGD pending plan from cardiology. Repeat H&H ordered for this evening. Repeat CBC, CMP, magnesium ordered for the morning. - Ferritin, iron, TIBC ordered and pending # Acute on chronic HFrEF #CAD s/p 6 stents NSTEMI ?Continuing Plavix in the setting of troponin 1.4, serial troponins pending. Caution with possible bleeding above. Will monitor H&H closely. holding aspirin due to risk for GI bleed - Cardiology consulted to evaluate, as patient is chest pain-free, will discontinue nitro drip. Continue carvedilol 12.5 mg twice daily, initiate Lipitor 40 mg daily. - EKG per my review with normal sinus rhythm. Has some mild ST depression as previously noted but nothing that is new. - Repeat limited echo pending; echo from November showed EF of 45% with severe hypokinesis of the mid to distal anterior and anterior septal LV [place] - BNP elevated at 6100 - Bumex 1 mg IV once. Initiate Lasix 40 mg p.o. daily. Continue valsartan 80 mg daily (irbesartan 75 mg as formulary conversion). Continue Aldactone 25 mg daily - Resume Farxiga 10 mg daily #Hypothyroidism ? Continue home levothyroxine 50 mcg. TSH marginally elevated at 5.4 #BPH: Significant chronic symptoms. Continue tamsulosin 0.8 mg nightly. Full code DVT prophylaxis: SCDs diabetic diet, npo at midnight
--- NOTE | 2025-02-28 13:46 | PC.NURSE ---
pt arrived to the unit with ICU staff
[2025-02-28] MEDS: DEFINITY US ECHO CONTRAST 2ML INJ 2 MG IV (13:49)
[2025-02-28] MEDS: BUMETANIDE 1MG/4ML VIAL 1 MG IV (14:35)
[2025-02-28] MEDS: FUROSEMIDE 40 MG TABLET PO (14:41)
[2025-02-28] MEDS: SPIRONOLACTONE 25MG TABLET 25 MG PO (14:41)
[2025-02-28 14:47] LABS: Troponin I 1.74 ng/ml (0.00-0.034)
--- NOTE | 2025-02-28 15:43 | PC.WOUNDNOTE ---
BOTTOM IS RED
--- NOTE | 2025-02-28 16:04 | EXP.GE.CONS ---
History of Present Illness *Admission Date: 02/28/25 *Reason for visit:: Chest pain *History of present illness: This is a 79-year-old white male with past medical history of coronary artery disease with 5 vessel stenting/reconstruction with 7 JAMIL May 2024, history of HFrEF with a known ejection fraction of 45% 12/2024 and peptic ulcer disease who presented to emergency department with complaints of chest pressure, progressive and worsening over a week. Patient reports he has been dealing with a peptic ulcer for a few weeks now and having episodes of melena. Went to see Dr. Montana today and was advised to go to the ER for chest pain and abnormal EKG. Upon presentation to ER EKG shows normal sinus rhythm at a rate of [address] depression as seen on previous EKGs. Hemoglobin is stable at 8.9 (at patient's baseline), creatinine is 1.4, first troponin 1.28 and BNP of 6140 was noted. per cardiology consult This is 79-year-old male sent to the ER due to chest pain. He has an extensive cardiac history. See above. He has had elevated troponins on the first [address] depression on EKG. Patient found to be anemic with a hemoglobin of 8.9 hematocrit of 29.2. He has a history of chronic anemia. Looking over his history, his hemoglobin does normally run between 8 and 9. Normally he is normocytic and hypochromic, today his MCHC is a little low at 30.5. The patient reports that about a week ago he had an episode of nausea and vomiting and an episode of hematemesis. He reports that resolved but he has had black stools intermittently over the past week. He does have some constipation and skipped a couple days without a bowel movement. The patient does report a history of duodenal ulcers with hemorrhage about 2 or 3 years ago seen on EGD. He is on Plavix. He denies any NSAID use. He denies any alcohol consumption. He does have occasional nausea and vomiting. He does get some constipation. He has noted a little red blood per rectum as well. [facility] Disclaimer: The information contained in this section may have been updated after the patient was seen, as this information can be updated by other users. Medical History Bilateral lower leg cellulitis Lymphedema of both lower extremities Chronic acquired lymphedema UGIB (upper gastrointestinal bleed) PUD (peptic ulcer disease) Duodenitis Nausea and vomiting Nausea Encounter for laboratory testing for COVID-19 virus Diabetes mellitus Gastroenteritis and colitis, viral Dehydration PICC (peripherally inserted central catheter) in place Diabetic foot Multiple drug resistant organism (MDRO) culture positive Near syncope Cellulitis, leg Ingrowing Toenail Callus of foot Onychoincurvatum Onychodystrophy Pain around toenail, left foot Ingrowing Toenail Cellulitis of right leg Arthritis PAD (peripheral artery disease) HTN (hypertension), benign Heart murmur T2DM (type 2 diabetes mellitus) BPH (benign prostatic hyperplasia) Peripheral vascular disease Surgical History Hx of colonoscopy History of total left hip replacement Family History Other Cancer Heart attack Social History (Updated 02/28/25 @ 14:14 by Che Hudson RN) Smoking Status: Current some day smoker tobacco type: cigarettes packs per day: 1 alcohol intake: never substance use type: denies use current occupational status: retired Travel in the last 8 weeks?: None household members: none housing: house current occupation: [employer] current occupational exposures/hazards: No caffeine: Yes Have you lived/traveled outside US in past 30 days?: No Contact w/someone who lives/traveled outside US past 30 days?: No Exposure to someone with infectious disease in past 14 days?: No Do you have a fever (greater than 100.4 F or 38 C)?: No Have you tested positive for COVID-19?: No Exposed to someone with COVID-19 in past 14 days?: No Do you have a sore throat?: No Do you have a cough?: No Do you have any weakness?: No Do you have any diarrhea?: No Are you experiencing any unusual bleeding?: No Do you have any muscle aches/pain?: No Do you have any abdominal pain?: No Are you experiencing loss of taste or smell?: No Review of Systems Review of Systems Review of systems:: pertinent systems reviewed and negative unless documented below Constitutional Constitutional: Reports system reviewed and no additional complaints, except as documented Eyes Eyes: Reports system reviewed and no additional complaints, except as documented ENT Ears, Nose, Mouth, and Throat: Reports system reviewed and no additional complaints, except as documented *Cardiovascular Cardiovascular: Reports chest pain *Respiratory Respiratory: Reports system reviewed and no additional complaints, except as documented *Gastrointestinal Gastrointestinal: Denies abdominal pain, Reports constipation, Reports hematemesis, Reports melena, Reports nausea and Reports vomiting *Genitourinary Genitourinary: Reports system reviewed and no additional complaints, except as documented *Musculoskeletal Musculoskeletal: Reports system reviewed and no additional complaints, except as documented Integumentary/Breasts Skin/Breast: Reports system reviewed and no additional complaints, except as documented *Neurologic Neurologic: Reports system reviewed and no additional complaints, except as documented and Denies confusion Psychiatric Psychiatric: Denies confusion Meds Home Medications and Allergies Home Medications ?Medication ?Instructions ?Recorded ?Confirmed ?Type tamsulosin 0.4 mg capsule 0.8 mg PO HS 04/04/18 01/15/25 History clopidogrel 75 mg tablet 75 mg PO DAILY #90 tabs 07/18/24 02/28/25 Rx furosemide 20 mg tablet 20 mg PO MOWEFR 08/17/24 02/28/25 History valsartan 80 mg tablet 80 mg PO BID 09/04/24 02/28/25 History dapagliflozin propanediol 10 mg 10 mg PO DAILY #30 tabs 11/15/24 02/28/25 Rx tablet (Farxiga) carvedilol 12.5 mg tablet 12.5 mg PO BID #60 tabs 12/13/24 02/28/25 Rx famotidine 40 mg tablet 40 mg PO HS 12/13/24 02/28/25 History nitroglycerin 0.4 mg sublingual 0.4 mg sublingual Q5M PRN chest 12/13/24 02/28/25 Rx tablet pain #25 tabs spironolactone 25 mg tablet 25 mg PO DAILY 12/13/24 02/28/25 History levothyroxine 50 mcg tablet 50 mcg PO DAILY 02/28/25 02/28/25 History New Prescriptions to Start Prescriptions: Allergies Allergy/AdvReac Type Severity Reaction Status Date / Time Antihistamines - Alkylamine Allergy Mild MADE SKIN Verified 01/15/25 14:51 (ANTIHISTAMINES - ALKYLAMINE) FEEL LIKE ON FIRE NSAIDS (Non-Steroidal AdvReac Severe kidney Verified 01/15/25 14:51 Anti-Inflamma failure Exam (Inpt) Vital signs and Labs for Last 24 Hours: Temp Pulse Resp BP Pulse Ox O2 Del Method 97.8 F 74 18 121/87 100 Room Air 02/28/25 13:14 02/28/25 14:00 02/28/25 14:00 02/28/25 14:00 02/28/25 14:00 02/28/25 14:00 Laboratory Results - last 24 hr 02/28/25 10:50: WBC 11.8 H, RBC 3.29 L, Hgb 8.9 L, Hct 29.2 L, MCV 88.8, MCH 27.1, MCHC 30.5 L, RDW 15.9, Plt Count 408, MPV 9.0, Neut % (Auto) 65.5, Lymph % (Auto) 17.5, Jennings % (Auto) 10.6 H, Eos % (Auto) 4.0, Baso % (Auto) 0.7, Neut # (Auto) 7.8, Lymph # (Auto) 2.1, Jennings # (Auto) 1.3 H, Eos # (Auto) 0.5 H, Baso # (Auto) 0.1, PT 11.1, INR 1.00, Sodium 137, Potassium 4.5, Chloride 102, Carbon Dioxide 25, Anion Gap 14.5, BUN 25 H, Creatinine 1.40 H, Estimated Creat Clear 74, Estimated GFR 49 L, Est GFR ( Amer) 59, Glucose 102 H, Calcium 8.5, Magnesium 1.8, Total Bilirubin 0.5, AST 35, ALT 36, Alkaline Phosphatase 81, Troponin I 1.28 H, NT-Pro-B Natriuret Pep 6140 H, Total Protein 7.6 D, Albumin 4.2, Globulin 3.4 H, Albumin/Globulin Ratio 1.2, TSH 5.16 H, Free T4 1.25 02/28/25 14:06: Troponin I 1.74 H I & O for Labs for Last 24 Hours: Intake & Output 02/26/25 02/27/25 02/28/25 03/01/25 11:59 11:59 11:59 11:59 Output Total 200 Balance -200 Weight 119.748 kg Constitutional: no acute distress and obese Head: Present normocephalic and atraumatic Respiratory: Present CTA bilaterally Comment:: Patient currently undergoing cardiac echo GI: Present soft, distention (Moderate distention with gas bloat) and normal bowel sounds Extremities: Present normal inspection Skin: Present intact Results Labs 02/28/25 10:50 02/28/25 10:50 Labs: Laboratory Results - last 24 hr 02/28/25 10:50: WBC 11.8 H, RBC 3.29 L, Hgb 8.9 L, Hct 29.2 L, MCV 88.8, MCH 27.1, MCHC 30.5 L, RDW 15.9, Plt Count 408, MPV 9.0, Neut % (Auto) 65.5, Lymph % (Auto) 17.5, Jennings % (Auto) 10.6 H, Eos % (Auto) 4.0, Baso % (Auto) 0.7, Neut # (Auto) 7.8, Lymph # (Auto) 2.1, Jennings # (Auto) 1.3 H, Eos # (Auto) 0.5 H, Baso # (Auto) 0.1, PT 11.1, INR 1.00, Sodium 137, Potassium 4.5, Chloride 102, Carbon Dioxide 25, Anion Gap 14.5, BUN 25 H, Creatinine 1.40 H, Estimated Creat Clear 74, Estimated GFR 49 L, Est GFR ( Amer) 59, Glucose 102 H, Calcium 8.5, Magnesium 1.8, Total Bilirubin 0.5, AST 35, ALT 36, Alkaline Phosphatase 81, Troponin I 1.28 H, NT-Pro-B Natriuret Pep 6140 H, Total Protein 7.6 D, Albumin 4.2, Globulin 3.4 H, Albumin/Globulin Ratio 1.2, TSH 5.16 H, Free T4 1.25 02/28/25 14:06: Troponin I 1.74 H Assessment and Plan *Assessment and plan (1) UGIB (upper gastrointestinal bleed): Status: Acute Category: Medical Code(s): K92.2 - Gastrointestinal hemorrhage, unspecified (2) GERD (gastroesophageal reflux disease): Status: Acute Category: Medical Code(s): K21.9 - Gastro-esophageal reflux disease without esophagitis (3) Duodenal ulcer with hemorrhage: Status: Acute Category: Medical Code(s): K26.4 - Chronic or unspecified duodenal ulcer with hemorrhage (4) Complaint of melena: Status: Acute Category: Medical Code(s): K92.1 - Melena (5) Anemia: Status: Acute Category: Medical Code(s): D64.9 - Anemia, unspecified Plan 1. GI bleed/GERD/history of duodenal ulcer/melena/anemia Hemoglobin of 8.9. Over the past 6 months looks like patient has had chronic anemia with a hemoglobin between 8 and 9. Usually he is normocytic and normochromic but today his MCHC is a little low at 30.5. Patient is on Plavix. History of duodenal ulcer with hemorrhage 2- 3 years ago. Has had single episode of nausea vomiting with hematemesis and now black stools for a week intermittently and a little bit of bright red blood per rectum. Regularly gets occasional nausea with some rare vomiting. No NSAIDs no alcohol. Likely needs EGD but given presentation on admission, will need cardiac clearance prior to procedure. Recommend high-dose Protonix. Recommend Hemoccult testing. Recommend iron levels and replacement if needed. No current obvious melena or hematemesis. If he develops either would add octreotide.
--- NOTE | 2025-02-28 16:35 | PC.NURSE ---
report given to NIRAJ Gomes
--- NOTE | 2025-02-28 17:04 | PC.NURSE ---
arrived by w/c from ICU
[2025-02-28 20:49] LABS: Troponin I 2.34 ng/ml (0.00-0.034)
[2025-02-28] MEDS: ATORVASTATIN 40MG TABLET 40 MG PO (20:54)
[2025-02-28] MEDS: CARVEDILOL 12.5MG TABLET 12.5 MG PO (20:54)
[2025-02-28] MEDS: TAMSULOSIN 0.4MG CAPSULE 0.8 MG PO (20:54)
[2025-02-28] MEDS: PANTOPRAZOLE 40MG VIAL 40 MG IV (20:55)
[2025-02-28] MEDS: SODIUM CHLORIDE 0.9% 10ML VIAL 10 ML IV (20:55)
--- NOTE | 2025-02-28 21:12 | ECG_ITS ---
APPROVED REPORT Exam: Resting ECG HR:83 bpm ECG Measurements Heart Rate 83 AXES AK 234 P 46 QRSd 89 QRS -16 QT 379 T 51 QTc 419 Conclusion SINUS RHYTHM WITH FIRST DEGREE AV BLOCK LOW QRS VOLTAGE IN PRECORDIAL LEADS [QRS DEFLECTION < 1.0 mV IN CHEST LEADS] SEPTAL MYOCARDIAL INFARCTION , PROBABLY OLD [40+ ms Q WAVE IN V1/V2] ABNORMAL ECG UNCONFIRMED REPORT Electronically signed by : Gasper Montana MD 03/02/2025 08:14:14
[2025-03-01] VITALS (19 sets, daily range): BP systolic 90–139; BP diastolic 50–73; PULSE 48–83; RESP 16–20; TEMP 36.2–36.7; O2SAT 92–100; BMI 38.8
[2025-03-01] MEDS: LEVOTHYROXINE 50MCG (0.05MG) TAB 50 MCG PO (06:32)
[2025-03-01 06:34] LABS: Hematocrit 27.1 % (42.0-52.0); Hemoglobin 8.6 g/dL (14.1-18.0); Immature Granulocytes % 1.0 %; Mean Corpuscular HGB Conc 31.7 g/dL (31.8-35.4); Mean Corpuscular Hemoglobin 27.5 pg (27.0-31.2); Mean Corpuscular Volume 86.6 fl (80-94); Nucleated Red Blood Cells % 0 %; Platelet Count 395 K/mm3 (142-424); Red Blood Count 3.13 M/mm3 (4.60-6.20); Red Cell Distribution Width-SD 49.9 fL; White Blood Count 10.7 K/mm3 (4.8-10.8)
--- NOTE | 2025-03-01 06:49 | PC.NURSE ---
Pt is alert and oriented x4. Pt has rested well this shift. Pt remains on telemetry with a NSR and occasional PVCs. Pt has been NPO since midnight due to possible procedure. Pt did have a critical troponin this shift. Pt has had no other acute changes to note this shift.
[2025-03-01 06:53] LABS: Alanine Aminotransferase 28 U/L (12-78); Albumin Level 3.6 g/dl (3.5-5.0); Albumin/Globulin Ratio 1.2 (1.1-1.8); Alkaline Phosphatase 92 U/L (38-126); Anion Gap 11.1 mEq/L (5-15); Aspartate Amino Transferase 30 U/L (17-59); Bilirubin,Total 0.7 mg/dl (0.2-1.3); Blood Urea Nitrogen 23 mg/dl (9-20); Calcium 8.4 mg/dl (8.4-10.2); Carbon Dioxide 26 mmol/L (22.0-30.0); Chloride 102 mmol/L (98-107); Cholesterol 117 mg/dl (140-200); Creatinine Clearance Estimated 53 mL/min (50-200); Creatinine,Serum 1.90 mg/dl (0.66-1.25); Estimated Glomerular Filt Rate 34 ml/min (>60); GFR (African American) 42 ML/MIN (>60); Globulin 3.0 g/dL (1.3-3.2); Glucose 111 mg/dl (74-100); HDL Cholesterol 27 mg/dl (40-60); Magnesium 1.7 mg/dl (1.6-2.3); Potassium 4.1 mmoL/L (3.5-5.1); Sodium 135 mmol/L (136-145); Total Protein,Serum 6.6 g/dl (6.3-8.2); Triglycerides 131 mg/dl (30-150)
[2025-03-01 07:14] LABS: Iron 31 ug/dL (49-181)
[2025-03-01 07:23] LABS: Total Iron Binding Capacity 316 ug/dL (261-462)
--- NOTE | 2025-03-01 07:37 | HMH.PHAINT1 ---
Pharmacy Intervention Comments: HOME MEDICATION LIST VERIFIED USING LIST FROM OUTPATIENT PHARMACY
[2025-03-01 07:51] LABS: Ferritin 17.6 ng/ml (17.9-464)
--- NOTE | 2025-03-01 08:42 | EXP.HP ---
History of Present Illness *Admission Date: 03/01/25 *History of present illness: Mr. Mckeon is a 79-year-old gentleman who is here for diagnostic EGD. The patient was admitted with chest pain. He has been cleared by cardiology. He also has had chronic anemia. He had some nausea, vomiting and hematemesis that resolved. He later had black stools. 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 The examination is deemed medically necessary for diagnostic EGD. The patient has been seen, interviewed and examined prior to the procedure by both myself and the anesthesia provider. [facility] Disclaimer: The information contained in this section may have been updated after the patient was seen, as this information can be updated by other users. Medical History Bilateral lower leg cellulitis Lymphedema of both lower extremities Chronic acquired lymphedema UGIB (upper gastrointestinal bleed) PUD (peptic ulcer disease) Duodenitis Nausea and vomiting Nausea Encounter for laboratory testing for COVID-19 virus Diabetes mellitus Gastroenteritis and colitis, viral Dehydration PICC (peripherally inserted central catheter) in place Diabetic foot Multiple drug resistant organism (MDRO) culture positive Near syncope Cellulitis, leg Ingrowing Toenail Callus of foot Onychoincurvatum Onychodystrophy Pain around toenail, left foot Ingrowing Toenail Cellulitis of right leg Arthritis PAD (peripheral artery disease) HTN (hypertension), benign Heart murmur T2DM (type 2 diabetes mellitus) BPH (benign prostatic hyperplasia) Peripheral vascular disease Surgical History Hx of colonoscopy History of total left hip replacement Family History Other Cancer Heart attack Social History Smoking Status: Current some day smoker tobacco type: cigarettes packs per day: 1 alcohol intake: never substance use type: denies use current occupational status: retired Travel in the last 8 weeks?: None household members: none housing: house current occupation: [employer] current occupational exposures/hazards: No caffeine: Yes Have you lived/traveled outside [place] in past 30 days?: No Contact w/someone who lives/traveled outside US past 30 days?: No Exposure to someone with infectious disease in past 14 days?: No Do you have a fever (greater than 100.4 F or 38 C)?: No Have you tested positive for COVID-19?: No Exposed to someone with COVID-19 in past 14 days?: No Do you have a sore throat?: No Do you have a cough?: No Do you have any weakness?: No Do you have any diarrhea?: No Are you experiencing any unusual bleeding?: No Do you have any muscle aches/pain?: No Do you have any abdominal pain?: No Are you experiencing loss of taste or smell?: No Other Medical History Have you received the Flu Vaccine for this season: Yes Have you received the Pneumonia Vaccine: Yes Review of Systems Review of Systems Review of systems (narrative): Negative *Cardiovascular Comments: Negative *Gastrointestinal Comments: Negative *Genitourinary Comments: Negative *Musculoskeletal Comments: Negative *Neurologic Neurologic: Reports system reviewed and no additional complaints, except as documented and Denies confusion Comments: Negative Psychiatric Psychiatric: Denies confusion Meds Home Medications and Allergies Home Medications ?Medication ?Instructions ?Recorded ?Confirmed ?Type tamsulosin 0.4 mg capsule 0.8 mg PO HS 04/04/18 03/01/25 History clopidogrel 75 mg tablet 75 mg PO DAILY #90 tabs 07/18/24 02/28/25 Rx furosemide 20 mg tablet 20 mg PO MOWEFR 08/17/24 02/28/25 History valsartan 80 mg tablet 80 mg PO BID 09/04/24 02/28/25 History dapagliflozin propanediol 10 mg 10 mg PO DAILY #30 tabs 11/15/24 02/28/25 Rx tablet (Farxiga) carvedilol 12.5 mg tablet 12.5 mg PO BID #60 tabs 12/13/24 02/28/25 Rx famotidine 40 mg tablet 40 mg PO HS 12/13/24 02/28/25 History nitroglycerin 0.4 mg sublingual 0.4 mg sublingual Q5M PRN chest 12/13/24 02/28/25 Rx tablet pain #25 tabs spironolactone 25 mg tablet 25 mg PO DAILY 12/13/24 02/28/25 History levothyroxine 50 mcg tablet 50 mcg PO DAILY 02/28/25 02/28/25 History New Prescriptions to Start Prescriptions: Allergies Allergy/AdvReac Type Severity Reaction Status Date / Time Antihistamines - Alkylamine Allergy Mild MADE SKIN Verified 01/15/25 14:51 (ANTIHISTAMINES - ALKYLAMINE) FEEL LIKE ON FIRE NSAIDS (Non-Steroidal AdvReac Severe kidney Verified 01/15/25 14:51 Anti-Inflamma failure Exam Data for Last 24 hours Vital signs and Labs for Last 24 Hours: Temp Pulse Resp BP Pulse Ox O2 Del Method 97.9 F 76 20 114/60 99 Room Air 03/01/25 04:00 03/01/25 04:00 03/01/25 04:00 03/01/25 04:00 03/01/25 04:00 03/01/25 07:37 Laboratory Results - last 24 hr 02/28/25 10:50: WBC 11.8 H, RBC 3.29 L, Hgb 8.9 L, Hct 29.2 L, MCV 88.8, MCH 27.1, MCHC 30.5 L, RDW 15.9, Plt Count 408, MPV 9.0, Neut % (Auto) 65.5, Lymph % (Auto) 17.5, [place] % (Auto) 10.6 H, Eos % (Auto) 4.0, Baso % (Auto) 0.7, Neut # (Auto) 7.8, Lymph # (Auto) 2.1, [place] # (Auto) 1.3 H, Eos # (Auto) 0.5 H, Baso # (Auto) 0.1, PT 11.1, INR 1.00, Sodium 137, Potassium 4.5, Chloride 102, Carbon Dioxide 25, Anion Gap 14.5, BUN 25 H, Creatinine 1.40 H, Estimated Creat Clear 74, Estimated GFR 49 L, Est GFR ( Amer) 59, Glucose 102 H, Calcium 8.5, Magnesium 1.8, Total Bilirubin 0.5, AST 35, ALT 36, Alkaline Phosphatase 81, Troponin I 1.28 H, NT-Pro-B Natriuret Pep 6140 H, Total Protein 7.6 D, Albumin 4.2, Globulin 3.4 H, Albumin/Globulin Ratio 1.2, TSH 5.16 H, Free T4 1.25 02/28/25 14:06: Troponin I 1.74 H 02/28/25 19:57: Troponin I 2.34 H 03/01/25 05:58: WBC 10.7, RBC 3.13 L, Hgb 8.6 L, Hct 27.1 L, MCV 86.6, MCH 27.5, MCHC 31.7 L, RDW 15.8, Plt Count 395, MPV 8.9, Neut % (Auto) 66.4, Lymph % (Auto) 14.9, [place] % (Auto) 12.2 H, Eos % (Auto) 4.9, Baso % (Auto) 0.6, Neut # (Auto) 7.1, Lymph # (Auto) 1.6, [place] # (Auto) 1.3 H, Eos # (Auto) 0.5 H, Baso # (Auto) 0.1, Sodium 135 L, Potassium 4.1, Chloride 102, Carbon Dioxide 26, Anion Gap 11.1, BUN 23 H, Creatinine 1.90 H D, Estimated Creat Clear 53, Estimated GFR 34 L, Est GFR ( Amer) 42 L D, Glucose 111 H, Calcium 8.4, Magnesium 1.7, Iron 31 L, TIBC 316, Iron Saturation 9.44981 L, Ferritin 17.6 L D, Total Bilirubin 0.7, AST 30, ALT 28, Alkaline Phosphatase 92, Total Protein 6.6, Albumin 3.6 D, Globulin 3.0, Albumin/Globulin Ratio 1.2, Triglycerides 131, Cholesterol 117 L, LDL Cholesterol Direct 44.80 L, VLDL Cholesterol 26, HDL Cholesterol 27 L, Cholesterol/HDL Ratio 4.3 H I & O for Last 24 hours: Intake & Output 02/26/25 02/27/25 02/28/25 03/01/25 23:59 23:59 23:59 23:59 Intake Total 305.6 / 545.6 240 / 240 Output Total 2200 / 2350 150 / 150 Balance -1894.4 / -1804.4 90 / 90 Weight 264 lb 256 lb 8 oz *Routine HEENT Exam Head: Present normocephalic Eye: Present EOMI and PERRL ENT: Present mucous membranes moist *Routine Neck Exam Neck: Present supple *Routine Respiratory Exam Respiratory: Present CTA bilaterally *Routine Cardiovascular Exam Cardiovascular: Present RRR *Routine Abdominal Exam Abdominal: Present soft and normoactive bowel sounds; Absent tenderness *Routine Rectal Exam Rectal:: deferred *Routine Genitalia Exam Genitalia:: deferred *Routine Extremities Exam Extremities: Absent cyanosis, clubbing or edema *Routine Skin Exam Skin: Present warm; Absent rash *Routine Neurological Exam Neurological: Present alert and oriented X3 Assessment and Plan *Assessment and plan (1) Anemia: Status: Acute Category: Medical Code(s): D64.9 - Anemia, unspecified (2) Complaint of melena: Status: Acute Category: Medical Code(s): K92.1 - Melena (3) UGIB (upper gastrointestinal bleed): Status: Acute Category: Medical Code(s): K92.2 - Gastrointestinal hemorrhage, unspecified (4) Chest pain: Status: Acute Category: Medical Code(s): R07.9 - Chest pain, unspecified (5) GERD (gastroesophageal reflux disease): Status: Acute Category: Medical Code(s): K21.9 - Gastro-esophageal reflux disease without esophagitis (6) Hematemesis: Status: Acute Category: Medical Code(s): K92.0 - Hematemesis Plan A/P: 1. Hematemesis and melena with anemia is the preprocedural diagnosis. The patient will be anesthetized/sedated using MAC sedation. The patient has been seen and examined. Cardiac and lung assessment prior to the examination is stable. Proceed with planned diagnostic EGD.
--- NOTE | 2025-03-01 08:54 | P.PCN_ITS ---
[facility] Procedure Note Date: 03/01/25 Time: 09:12 Procedure Note:: Upper Endoscopy Procedure Report: Esophagogastroduodenoscopy with APC ablation, forced coagulation and Endo Clip placement Endoscopost: Laron Mello II, MD Referring Physician: Gasper [place] M.D. Date of Procedure: March 01, 2025 Equipment: Olympus GIF 190 standard upper endoscope Sedation: MAC sedation Indications: Mr. Mckeon is a 79-year-old gentleman who recently had hematemesis and melena. He had a GI bleed and August 2024 and was found to have a duodenal ulcer at the junction of the 2nd and 3rd portion of duodenum and had epinephrine, heater probe ablation and Endo Clip placement at that time. The patient presently reports chest pain and has had cardiac evaluation and clearance by cardiology. He also has chronic anemia and about a week ago had some hematemesis. He also states that he has had black stools intermittently over the last week and feels as if he is bleeding. He is on Plavix. Procedure: Prior to the procedure, a history and physical exam was performed, and patient's medications and allergies were reviewed. The risks, benefits and alternatives of the sedation and procedure were discussed with the patient. All questions were answered and informed consent was obtained. The patient was brought to the procedure room. Patient identification and proposed procedure were verified by the physician and the nurse. The patient was placed in a left lateral decubitus position and the scope was passed under direct vision. Throughout the procedure, the patient's blood pressure, pulse, and oxygen saturations were monitored continuously. The upper GI endoscopy was accomplished without difficulty. The patient tolerated the procedure well. Findings: The scope was passed directly into the upper esophagus and advanced to the third portion of the duodenum. There was a single angiodysplasia that was ablated using APC ablation in the 3rd and 4th portion. There was also clot and ulcer and some fresh blood in the second portion of the duodenum along the medial wall. Initially, APC was utilized and there was some more fresh venous heme that was a little brisk. The hot biopsy forceps was utilized with forced coagulation to provide further hemostasis. This had slowed considerably and next a single Endo Clip was placed over the vascular area of venous bleeding and there was complete hemostasis. The scope was withdrawn through a normal bulb and pylorus into the stomach. The antrum body and fundus of the stomach were grossly normal. There was minimal reactive gastropathy of the antrum. Upon retroflexion there was a very small sliding 1 to 2 cm hiatal hernia. The scope was then withdrawn into the esophagus. There is no evidence of reflux esophagitis and the remainder of the esophageal mucosa was normal. Impression: 1. Duodenal ulcer second portion of duodenum with clot and visible heme?status post APC ablation, forced coagulation and Endo Clip placement with excellent hemostasis Plan: I would recommend continuing PPI therapy as well as misoprostol. There was no clear source for his chest pain and I do suspect that this may be cardiac etiology based upon his history of coronary artery disease and elevated troponins.
--- NOTE | 2025-03-01 09:19 | EXP.ANES.CKL ---
[facility] Disclaimer: The information contained in this section may have been updated after the patient was seen, as this information can be updated by other users. Medical History Bilateral lower leg cellulitis Lymphedema of both lower extremities Chronic acquired lymphedema UGIB (upper gastrointestinal bleed) PUD (peptic ulcer disease) Duodenitis Nausea and vomiting Nausea Encounter for laboratory testing for COVID-19 virus Diabetes mellitus Gastroenteritis and colitis, viral Dehydration PICC (peripherally inserted central catheter) in place Diabetic foot Multiple drug resistant organism (MDRO) culture positive Near syncope Cellulitis, leg Ingrowing Toenail Callus of foot Onychoincurvatum Onychodystrophy Pain around toenail, left foot Ingrowing Toenail Cellulitis of right leg Arthritis PAD (peripheral artery disease) HTN (hypertension), benign Heart murmur T2DM (type 2 diabetes mellitus) BPH (benign prostatic hyperplasia) Peripheral vascular disease Surgical History Hx of colonoscopy History of total left hip replacement Family History Other Cancer Heart attack Social History Smoking Status: Current some day smoker tobacco type: cigarettes packs per day: 1 alcohol intake: never substance use type: denies use current occupational status: retired Travel in the last 8 weeks?: None household members: none housing: house current occupation: [employer] current occupational exposures/hazards: No caffeine: Yes Have you lived/traveled outside [place] in past 30 days?: No Contact w/someone who lives/traveled outside [place] past 30 days?: No Exposure to someone with infectious disease in past 14 days?: No Do you have a fever (greater than 100.4 F or 38 C)?: No Have you tested positive for COVID-19?: No Exposed to someone with COVID-19 in past 14 days?: No Do you have a sore throat?: No Do you have a cough?: No Do you have any weakness?: No Do you have any diarrhea?: No Are you experiencing any unusual bleeding?: No Do you have any muscle aches/pain?: No Do you have any abdominal pain?: No Are you experiencing loss of taste or smell?: No [facility] Anesthesia Checklist Patient Identification Patient Identification: Arm Band and Verbal (Name & ) Structural Data Admitted From: Home Planned Operative Procedure/s: EGD Consent for Planned Operative Procedure(s) Verified: Yes Verified Documents: Surgical Consent NPO Status Verified Time NPO: 00:00 Chart Verification Results Verified: ECG Additional verifications Anesthesia Reactions: No Airway Assessment Mallampati Score:: Class II C-Spine Mobility Assessed: Yes TMJ Mobility Assessed: Yes Dentition: Edentulous Neurological Assessment Level of Consciousness: Awake, Alert and Appropriate Hx Seizures: No Numbness or tingling in extremities: No Anesthesia Plan Anesthesia Risk discussed: Yes Anesthesia Plan: Verified ASA Class: III Anesthesia Type: MAC
[2025-03-01] MEDS: IRBESARTAN 75MG TABLET 75 MG PO (10:01)
[2025-03-01] MEDS: CLOPIDOGREL 75MG TAB 75 MG PO (10:01)
[2025-03-01] MEDS: SPIRONOLACTONE 25MG TABLET 25 MG PO (10:01)
[2025-03-01] MEDS: DAPAGLIFLOZIN PROPANEDIOL 10 MG TABLET PO (10:03)
[2025-03-01] MEDS: CARVEDILOL 12.5MG TABLET 12.5 MG PO (10:03)
[2025-03-01] MEDS: FUROSEMIDE 40 MG TABLET PO (10:04)
[2025-03-01] MEDS: PANTOPRAZOLE 40MG VIAL 40 MG IV ×2 (11:02→20:15)
--- NOTE | 2025-03-01 12:01 | P.PN_ITS ---
Subjective Subjective Date: 03/01/25 Time: 08:00 Principal diagnosis: NSTEMI, GI bleed Interval history: S/p scope today. Morning labs reviewed. Denies chest pain currently. Exam Data for Last 24 hours Vital signs and Labs for Last 24 Hours: Temp Pulse Resp BP Pulse Ox O2 Del Method O2 Flow Rate 97.2 F L 81 16 115/59 L 100 Room Air 2 03/01/25 09:18 03/01/25 09:38 03/01/25 09:38 03/01/25 09:38 03/01/25 09:38 03/01/25 09:38 03/01/25 09:18 Laboratory Results - last 24 hr 02/28/25 10:50: Free T4 1.25 02/28/25 14:06: Troponin I 1.74 H 02/28/25 19:57: Troponin I 2.34 H 03/01/25 05:58: WBC 10.7, RBC 3.13 L, Hgb 8.6 L, Hct 27.1 L, MCV 86.6, MCH 27.5, MCHC 31.7 L, RDW 15.8, Plt Count 395, MPV 8.9, Neut % (Auto) 66.4, Lymph % (Auto) 14.9, [place] % (Auto) 12.2 H, Eos % (Auto) 4.9, Baso % (Auto) 0.6, Neut # (Auto) 7.1, Lymph # (Auto) 1.6, [place] # (Auto) 1.3 H, Eos # (Auto) 0.5 H, Baso # (Auto) 0.1, Sodium 135 L, Potassium 4.1, Chloride 102, Carbon Dioxide 26, Anion Gap 11.1, BUN 23 H, Creatinine 1.90 H D, Estimated Creat Clear 53, Estimated GFR 34 L, Est GFR ( Amer) 42 L D, Glucose 111 H, Calcium 8.4, Magnesium 1.7, Iron 31 L, TIBC 316, Iron Saturation 9.30545 L, Ferritin 17.6 L D, Total Bilirubin 0.7, AST 30, ALT 28, Alkaline Phosphatase 92, Total Protein 6.6, Albumin 3.6 D, Globulin 3.0, Albumin/Globulin Ratio 1.2, Triglycerides 131, Cholesterol 117 L, LDL Cholesterol Direct 44.80 L, VLDL Cholesterol 26, HDL Cholesterol 27 L, Cholesterol/HDL Ratio 4.3 H I & O for Last 24 hours: Intake & Output 02/26/25 02/27/25 02/28/25 03/01/25 23:59 23:59 23:59 23:59 Intake Total 305.6 / 545.6 240 / 240 Output Total 2200 / 2350 300 / 300 Balance -1894.4 / -1804.4 -60 / -60 Weight 264 lb 256 lb 8 oz Constitutional Constitutional: no acute distress *Routine Respiratory Exam Respiratory: Present CTA bilaterally and symmetric chest movement *Routine Cardiovascular Exam Cardiovascular: Present RRR, Normal S1 and Normal S2 *Routine Abdominal Exam Abdominal: Present soft and normoactive bowel sounds; Absent tenderness *Routine Extremities Exam Extremities: Present full ROM and normal capillary refill; Absent edema *Routine Skin Exam Skin: Present intact, dry and warm Detailed Neck Exam: Thyroids Thyroid: Absent bruit Progress Note: A&P Assessment and plan (1) Anemia: Status: Acute (2) Complaint of melena: Status: Acute (3) UGIB (upper gastrointestinal bleed): Status: Acute (4) Chest pain: Status: Acute (5) GERD (gastroesophageal reflux disease): Status: Acute (6) Hematemesis: Status: Acute Assessment and Plan Assessment and Plan for All Diagnoses:: Hx of CAD Chest pain NSTEMI 5 vessel stenting/reconstructions with 7 JAMIL 05/2024 EKG shows NSR rate of [address] depression as previously noted on ekgs. trop 1.28, elevated to 2.34 Continue carvedilol 12.5 mg p.o. twice daily, Plavix 75 mg p.o. daily(as long as hemoglobin remains stable) and start atorvastatin 40 mg daily Nitro drip for pain Echocardiogram shows an EF of 40 to 45%. Discussed risk versus benefits of proceeding with a left heart catheterization in the setting of ulcer. Patient verbalizes understanding would like to proceed with left heart catheterization for further evaluation of coronary artery disease. Left heart catheterization scheduled for tomorrow at 10 AM Chronic HFrEF Echo November 2024 shows an EF of 45% with severe hypokinesis of the mid to distal anterior and anteroseptal LV [place] with no significant valvular stenosis or regurg. Repeat limited echo shows EF of 40-45 BNP on admission 6140 Continue Lasix 40 mg p.o. daily. Continue valsartan 80 mg p.o. twice daily and Aldactone 25 mg p.o. daily. Continue Farxiga 10 mg p.o. daily. GI bleed Reported melena History of duodenal ulcer Hemoglobin 8.6 today Upper endoscopy today: Duodenal ulcer second portion of duodenum with clot and visible heme-status post APC ablation, forced coagulation and Endo Clip Continue PPI IV iron x [address] Griffin request Sucrafate per Dr. Griffin request CV summary 02/28/2025: Will proceed with [facility] tomorrow at 10am. Continue below listed meds. Please keep NPO after midnight. Cardiac meds Carvedilol 12.5 mg p.o. twice daily Plavix 75 mg p.o. daily Atorvastatin 40 mg p.o. daily Lasix 40 mg p.o. daily Valsartan 80 mg p.o. twice daily Aldactone 25 mg p.o. daily Farxiga 10 mg p.o. daily
[2025-03-01] MEDS: IRON SUCROSE COMPLEX 300 MG in 0.9 % SODIUM CHLORIDE 250 ML 76.667 MG IV (14:48)
--- NOTE | 2025-03-01 16:27 | EXP.ACUTE.PN ---
Subjective *Date: 03/01/25 *Time: 16:27 Interval history: Denies chest pain today. No nausea or vomiting. Taken for scope, found to have punctate ulceration that was clipped and injected. Afebrile. Hemoglobin remained stable. On room air, family at bedside Medical Exam Vital signs and Labs for Last 24 Hours: Vital Signs Temp Pulse Pulse Resp BP Pulse Ox O2 Del Method 03/01/25 12:00 70 03/01/25 11:00 Room Air 03/01/25 09:38 81 16 115/59 L 100 Room Air 03/01/25 09:28 81 16 104/55 L 100 Room Air 03/01/25 09:18 97.2 F L 80 16 103/53 L 96 Nasal Cannula 03/01/25 08:53 79 18 108/56 L 100 Room Air 03/01/25 08:00 70 03/01/25 07:37 Room Air 03/01/25 06:55 Room Air 03/01/25 05:00 Room Air 03/01/25 04:00 60 03/01/25 04:00 97.9 F 76 20 114/60 99 Room Air 03/01/25 03:00 Room Air 03/01/25 01:00 Room Air 03/01/25 00:00 98.0 F 81 18 103/57 L 97 Room Air 02/28/25 23:00 Room Air 02/28/25 21:00 Room Air 02/28/25 20:00 90 02/28/25 20:00 Room Air 02/28/25 20:00 98.1 F 85 18 136/68 97 Room Air 02/28/25 18:14 Room Air 02/28/25 17:00 Room Air O2 Flow Rate 03/01/25 12:00 03/01/25 11:00 03/01/25 09:38 03/01/25 09:28 03/01/25 09:18 2 03/01/25 08:53 03/01/25 08:00 03/01/25 07:37 03/01/25 06:55 03/01/25 05:00 03/01/25 04:00 03/01/25 04:00 03/01/25 03:00 03/01/25 01:00 03/01/25 00:00 02/28/25 23:00 02/28/25 21:00 02/28/25 20:00 02/28/25 20:00 02/28/25 20:00 02/28/25 18:14 02/28/25 17:00 Intake and Output 03/01/25 03/01/25 03/01/25 07:59 15:59 23:59 Intake Total 240 / 480 240 / 480 Output Total 150 / 950 800 / 950 Balance 90 / -470 -560 / -470 Intake: Intake, Oral Amount 240 / 480 240 / 480 Output: Output, Urine Amount 150 / 950 800 / 950 Other: Number of Unmeasured Voids 0 Weight 116.346 kg Patient Weight 03/01/25 23:59 Weight 116.346 kg Laboratory Results - last 24 hr 02/28/25 19:57: Troponin I 2.34 H 03/01/25 05:58: WBC 10.7, RBC 3.13 L, Hgb 8.6 L, Hct 27.1 L, MCV 86.6, MCH 27.5, MCHC 31.7 L, RDW 15.8, Plt Count 395, MPV 8.9, Neut % (Auto) 66.4, Lymph % (Auto) 14.9, [place] % (Auto) 12.2 H, Eos % (Auto) 4.9, Baso % (Auto) 0.6, Neut # (Auto) 7.1, Lymph # (Auto) 1.6, [place] # (Auto) 1.3 H, Eos # (Auto) 0.5 H, Baso # (Auto) 0.1, Sodium 135 L, Potassium 4.1, Chloride 102, Carbon Dioxide 26, Anion Gap 11.1, BUN 23 H, Creatinine 1.90 H D, Estimated Creat Clear 53, Estimated GFR 34 L, Est GFR ( Amer) 42 L D, Glucose 111 H, Calcium 8.4, Magnesium 1.7, Iron 31 L, TIBC 316, Iron Saturation 9.22435 L, Ferritin 17.6 L D, Total Bilirubin 0.7, AST 30, ALT 28, Alkaline Phosphatase 92, Total Protein 6.6, Albumin 3.6 D, Globulin 3.0, Albumin/Globulin Ratio 1.2, Triglycerides 131, Cholesterol 117 L, LDL Cholesterol Direct 44.80 L, VLDL Cholesterol 26, HDL Cholesterol 27 L, Cholesterol/HDL Ratio 4.3 H I & O for Labs for Last 24 Hours: Intake & Output 02/26/25 02/27/25 02/28/25 03/01/25 23:59 23:59 23:59 23:59 Intake Total 305.6 / 545.6 480 / 480 Output Total 2200 / 2350 950 / 950 Balance -1894.4 / -1804.4 -470 / -470 Weight 119.748 kg 116.346 kg Constitutional: Present no acute distress, obese, chronically ill appearing and cooperative Head: Present atraumatic and normocephalic ENT: Present normal exam Comment:: Poor dentition Respiratory: Present CTA bilaterally and normal respiratory effort; Absent accessory muscle use, rhonchi, wheezes or crackles Cardiac: Present Reg Rate and Rhythm GI: Present soft, tenderness (Epigastric, mild) and hyperactive bowel sounds; Absent distention Extremities: Present normal inspection and full ROM; Absent edema Comment:: Chronic stasis changes of legs, no edema. Skin: Present intact; Absent erythema Comment:: Chronic stasis changes, no open wounds. Dry scaling of leg Neuro: Present Grossly Intact, alert, awake, oriented x 3 and moves all extremities Assessment and Plan *Assessment and plan (1) Chest pain: Status: Acute Category: Medical Code(s): R07.9 - Chest pain, unspecified (2) Anemia: Status: Acute Category: Medical Code(s): D64.9 - Anemia, unspecified (3) UGIB (upper gastrointestinal bleed): Status: Resolved Category: Medical Code(s): K92.2 - Gastrointestinal hemorrhage, unspecified (4) CAD (coronary artery disease): Status: Acute Qualifiers: Coronary Disease-Associated Artery/Lesion type: [place] artery [place] vs. transplanted heart: [place] heart Associated angina: without angina Qualified Code(s): I25.10 - Atherosclerotic heart disease of [place] coronary artery without angina pectoris Category: Medical Code(s): I25.10 - Atherosclerotic heart disease of [place] coronary artery without angina pectoris (5) HFrEF (heart failure with reduced ejection fraction): Status: Acute Category: Medical Code(s): I50.20 - Unspecified systolic (congestive) heart failure (6) Class 2 obesity: Status: Chronic Category: Medical Code(s): E66.812 - Obesity, class 2 (7) Hypertension: Status: Chronic Qualifiers: Hypertension type: unspecified Qualified Code(s): I10 - Essential (primary) hypertension Category: Medical Code(s): I10 - Essential (primary) hypertension (8) Complaint of melena: Status: Acute Category: Medical Code(s): K92.1 - Melena (9) Typical angina: Status: Acute Category: Medical Code(s): I20.9 - Angina pectoris, unspecified (10) GERD (gastroesophageal reflux disease): Status: Acute Category: Medical Code(s): K21.9 - Gastro-esophageal reflux disease without esophagitis Rachel Mckeon is a 79-year-old male with a medical history significant for HFrEF, NSTEMI/CAD s/p 6 stents May 2024, hypothyroidism, BPH who presents for worsening chest pain over the past several days. States that he has also had an episode of hematemesis and has had dark stools over the past week. Denies fever, cough, headache or shortness of breath. Reports being compliant with his medications. Was stopped on his aspirin recently by his PCP due to concern for possible bleeding and PUD. Workup in the ER concerning for GI bleed and unstable angina. Troponin elevated at 1.4. Discussed case with ER physician, request admission for further workup of possible GI bleed and stabilization clinically. I agreed to admit for further care. Will overnight. Downgraded to MedSur. Continues to require patient management. GI and cardiology evaluating today. Problems addressed as follows #Upper GI bleed #Chronic anemia ?GI evaluated, has history of bleeding ulcer 2 to 3 years ago. Patient seen by GI today, discussed case, taken for EGD. Found to have punctate ulceration that was clipped. Caution with anticoagulation. Continue pantoprazole 40 mg IV twice daily - Initiate sucralfate ACHS -Initiate misoprostol due to ulceration and recent aspirin use -Hemoglobin stable at 8.6. White count 10.7. BUN 27 and creatinine 1.4. -Iron studies low with iron level of 31, sat of 9.8%, ferritin 17. -Administer Venofer 300 mg IV once today. Will consider additional dose prior to discharge. Would benefit from full course of 1 g total IV - Repeat CBC, CMP, magnesium ordered for the morning. # Acute on chronic HFrEF #CAD s/p 6 stents NSTEMI ?Continuing Plavix in the setting of elevated troponin and recent stenting within the past; serial troponins trended up from 1.28-2.3. Caution with possible bleeding above. Will monitor H&H closely. holding aspirin due to risk for GI bleed - Cardiology consulted to evaluate, Continue carvedilol 12.5 mg twice daily, initiate Lipitor 40 mg daily. - Discussed case with cardiology this morning, will consider left heart cath in the morning. Repeat echo showed decreased EF of 45% with severe hypokinesis. BNP elevated at 6100. -Negative volume status of 2300 cc. Continue - Continue valsartan 80 mg daily (irbesartan 75 mg as formulary conversion). Continue Aldactone 25 mg daily - Resume Farxiga 10 mg daily #Hypothyroidism ? Continue home levothyroxine 50 mcg. TSH marginally elevated at 5.4 #BPH: Significant chronic symptoms. Continue tamsulosin 0.8 mg nightly. Full code DVT prophylaxis: SCDs diabetic diet, npo at midnight
--- NOTE | 2025-03-01 16:38 | HMH.PTEV ---
Physical Therapy Evaluation Rehab PT IP Evaluation Start: 02/28/25 14:18 Freq: ONCE Status: Active Protocol: Document 03/01/25 16:31 PAWAN (Rec: 03/01/25 16:38 PHOHALEY [id number]) Subjective/History History History 79-year-old male with a medical history significant for HFrEF, NSTEMI/CAD s/p 5 stents, hypothyroidism, BPH who presents for several days of of worsening chest pain with exertion. Also reports hematemesis and melena over the past week. On workup in the ER, patient found to be anemic at 8.9, consistent with chronic. Troponin elevated at 1.4. EKG obtained does not show ST elevations. Patient has previously presented with similar findings and found to have gastric ulcer. In light of his presentation, lab abnormalities, unstable angina, medicine consulted for admission. Cardiology and GI consulted to assist with care. Pt reports he lives alone, no JOSTIN the home, and he uses a RW for all ambulation at baseline. Subjective Subjective Currently he reports no c/o pain, but does endorse generally feeling weak. He agrees to OOB mobility assessment this . [facility] How much help from another person do you currently need... Turning from your A little back to your side while in a flat bed without using bedrails? Moving from lying on A little back to sitting on the side of a flat bed without using bedrails? Moving to and from a A little bed to a chair ( including a wheelchair)? Standing up from a A little chair using your arms? (e.g., wheelchair, bedside chair) Walking in hospital A little room? Climbing 3-5 steps A lot with a railing? Mobility Score 17 Mobility Level [facility] Mobility 5 Stand (1 or more minutes) Mobility Calculator Rehab PT IP Eval Objective Appearance Patient Behavior Appropriate Patient Orientation Person,Place,Time Difficulty following none instructions Speech Pattern Clear Ambulation Patient Able to Yes Ambulate Ambulation Observation IP General Gait Shuffling Step,Decrease Stride Lngth (R),Decrease Pattern Observation Stride Lngth (L) Ambulation Distance 15 (feet) Ambulation Assistive Rolling Walker Device Ambulation Ability Contact Guard/Hand Hold Balance Ability to Arise Able, uses arms to help Sitting Balance Steady, safe Standing Balance Steady, wide stance Dynamic Sitting Good Balance Ability Dynamic Standing Fair Balance Ability Transfers Bed Transfer Ability Minimal x 1 (25% assist) Sit to Stand Bed Independent,Minimal x 1 (25% assist) Transfer Ability Sit to Stand Chair Minimal x 1 (25% assist) Transfer Ability Rehab PT IP prob,goals,plan Problems Date of Evaluation: 03/01/25 PT IP Problems Bed Mobility,Transfers,Gait Rehab Potential Rehab Potential Good Plan PT Intervention Plan Bed Mobility,Transfers,Gait,Therapeutic Exercise PT Plan Frequency Daily Duration LOS Discharge Goals Bed Transfer Ability Contact Guard/Hand Hold Sit to Stand Chair Supervision/Stand by Transfer Ability Ambulation Assistive Rolling Walker Device Ambulation Distance 30 (feet) Discharge Plan PT Discharge Plan Pt is currently appropriate to return home once medically stable for d/c. Skilled therapy services are indicated during this hospitalization to aid increased strength, transfers, and ambulation in order to return pt to [facility]. Eval Complexity Eval Charge Codes 76268 - High Complexity PHYSICIAN CERTIFICATION: I certify the specified therapy services for Riki Mckeon are required, authorized, and reviewed every 30 days.
[2025-03-01] MEDS: SUCRALFATE 1GM TABLET 1 GM PO ×2 (17:01→20:16)
--- NOTE | 2025-03-01 18:52 | PC.NURSE ---
WOUND TO LEFT DORSAL FOOT SCAB CAME OFF WITH SOCK, DRESSED WITH VASELINE GAUZE, NONSTICK PAD AND KERLIX FOR PROTECTION. PATIENT HAS TOLERATED TRIAL OF CLEAR LIQUIDS POST PROCEDURE WITH MINIMAL NAUSEA, NO VOMITING. NPO AFTER MIDNIGHT. PATIENT IS SCHEDULED TO HAVE LEFT HEART CATH TOMORROW 03/02 AT 10AM, CONSENT IS SIGNED AND ON CHART.
--- NOTE | 2025-03-01 20:09 | PC.NURSE ---
During 8PM Vitals and SRNA checks, this SRNA and Trainee Katherine obtained a blood pressure on this pt of 97/54, we repeated with a manual and got 96/54, Nurse Dena was informed of results.
[2025-03-01] MEDS: SODIUM CHLORIDE 0.9% 10ML VIAL 10 ML IV (20:15)
[2025-03-01] MEDS: ATORVASTATIN 40MG TABLET 40 MG PO (20:16)
[2025-03-01] MEDS: TAMSULOSIN 0.4MG CAPSULE 0.8 MG PO (20:17)
--- NOTE | 2025-03-01 23:25 | PC.NURSE ---
Contacted Dr Chaves at this time. Pt HR keeps dropping into 30-40s range and telemetry shows a PAC with every other beat. Pt BP is 90/62 , HR 48. Pt is asymptomatic, resting in bed. New orders for EKG and dose of mag due to mag level of 1.7.
--- NOTE | 2025-03-01 23:33 | ECG_ITS ---
APPROVED REPORT Exam: Resting ECG HR:73 bpm ECG Measurements Heart Rate 73 AXES MI 257 P 63 QRSd 94 QRS -12 QT 414 T 10 QTc 440 Conclusion SINUS RHYTHM WITH FIRST DEGREE AV BLOCK LOW QRS VOLTAGE IN PRECORDIAL LEADS [QRS DEFLECTION < 1.0 mV IN CHEST LEADS] SEPTAL MYOCARDIAL INFARCTION , PROBABLY OLD [40+ ms Q WAVE IN V1/V2] ABNORMAL ECG UNCONFIRMED REPORT Electronically signed by : Gasper Montana MD 03/02/2025 08:14:10
[2025-03-01] MEDS: MAGNESIUM SULFATE IN WATER 2 GM/50 ML PIGGYBACK IV (23:48)
[2025-03-02] VITALS (19 sets, daily range): BP systolic 82–125; BP diastolic 41–65; PULSE 52–83; RESP 16–20; TEMP 36.3–36.7; O2SAT 96–99; BMI 39.3
--- NOTE | 2025-03-02 00:56 | PC.NURSE ---
Pt HR noted to be 30-35 range for at least 3 minutes, with multiple PACs, while sleeping, provider notified.
[2025-03-02] MEDS: LEVOTHYROXINE 50MCG (0.05MG) TAB 50 MCG PO (06:02)
[2025-03-02] MEDS: SUCRALFATE 1GM TABLET 1 GM PO ×4 (06:02→20:47)
[2025-03-02 07:26] LABS: Hematocrit 27.6 % (42.0-52.0); Hemoglobin 8.7 g/dL (14.1-18.0); Immature Granulocytes % 1.2 %; Mean Corpuscular HGB Conc 31.5 g/dL (31.8-35.4); Mean Corpuscular Hemoglobin 27.8 pg (27.0-31.2); Mean Corpuscular Volume 88.2 fl (80-94); Nucleated Red Blood Cells % 0 %; Platelet Count 395 K/mm3 (142-424); Red Blood Count 3.13 M/mm3 (4.60-6.20); Red Cell Distribution Width-SD 50.6 fL; White Blood Count 10.9 K/mm3 (4.8-10.8)
--- NOTE | 2025-03-02 08:07 | SW/DCPLANNER ---
Per PT no needs at this time.
[2025-03-02 08:29] LABS: Albumin Level 3.5 g/dl (3.5-5.0); Chloride 100 mmol/L (98-107); Potassium 4.8 mmoL/L (3.5-5.1); Sodium 137 mmol/L (136-145)
[2025-03-02 08:32] LABS: Alanine Aminotransferase 23 U/L (12-78); Albumin/Globulin Ratio 1.3 (1.1-1.8); Alkaline Phosphatase 96 U/L (38-126); Anion Gap 17.8 mEq/L (5-15); Aspartate Amino Transferase 28 U/L (17-59); Bilirubin,Total 0.4 mg/dl (0.2-1.3); Blood Urea Nitrogen 25 mg/dl (9-20); Carbon Dioxide 24 mmol/L (22.0-30.0); Creatinine Clearance Estimated 51 mL/min (50-200); Creatinine,Serum 2.00 mg/dl (0.66-1.25); Estimated Glomerular Filt Rate 32 ml/min (>60); GFR (African American) 39 ML/MIN (>60); Globulin 2.8 g/dL (1.3-3.2); Total Protein,Serum 6.3 g/dl (6.3-8.2)
[2025-03-02 08:33] LABS: Calcium 8.1 mg/dl (8.4-10.2); Glucose 101 mg/dl (74-100)
[2025-03-02] MEDS: CARVEDILOL 12.5MG TABLET 12.5 MG PO (10:37)
[2025-03-02] MEDS: SPIRONOLACTONE 25MG TABLET 25 MG PO (10:37)
[2025-03-02] MEDS: FUROSEMIDE 40 MG TABLET PO (10:37)
[2025-03-02] MEDS: IRBESARTAN 75MG TABLET 75 MG PO (10:37)
[2025-03-02] MEDS: DAPAGLIFLOZIN PROPANEDIOL 10 MG TABLET PO (10:37)
[2025-03-02] MEDS: CLOPIDOGREL 75MG TAB 75 MG PO (10:38)
[2025-03-02] MEDS: PANTOPRAZOLE 40MG VIAL 40 MG IV ×2 (10:39→20:47)
[2025-03-02 11:14] LABS: Troponin I 2.29 ng/ml (0.00-0.034)
--- NOTE | 2025-03-02 12:40 | P.PN_ITS ---
Subjective *Date: 03/02/25 *Time: 12:40 Interval history: Patient initially feeling well this morning. Blood pressure 117/52, heart rate 57. Did not have any nausea or vomiting. Stable on room air. Extensive discussion with family about discharge and follow-up closely as an outpatient for heart cath early next week to allow kidney function to improve somewhat. Patient was going to discharge home, when he got up to have a bowel movement prior to discharge he had what appears to be a vagal episode with hypotension and became confused and pale. Blood pressure dropped to 80s over 40s. Decision made to keep patient admitted. Discharge was canceled. Will monitor overnight. Repeat labs ordered for the afternoon. Bowel movement was brown and formed, no signs of blood or melena. O2 sat sats stable between 96 and 100 on room air. Medical Exam Vital signs and Labs for Last 24 Hours: Vital Signs Temp Pulse Pulse Resp BP Pulse Ox O2 Del Method 03/02/25 08:30 Room Air 03/02/25 08:00 80 03/02/25 08:00 98 F 57 L 17 117/52 L 99 Room Air 03/02/25 08:00 Room Air 03/02/25 06:39 Room Air 03/02/25 05:00 Room Air 03/02/25 04:00 60 03/02/25 04:00 97.4 F L 83 16 118/55 L 97 Room Air 03/02/25 02:47 Room Air 03/02/25 01:00 Room Air 03/02/25 00:45 97.6 F 97 Room Air 03/02/25 00:00 75 03/01/25 23:41 48 L 90/62 L 03/01/25 23:00 Room Air 03/01/25 20:57 Room Air 03/01/25 20:00 60 03/01/25 20:00 97.8 F 71 16 98/70 L 97 Room Air 03/01/25 19:35 Room Air 03/01/25 18:14 Room Air 03/01/25 17:00 Room Air 03/01/25 16:00 80 03/01/25 16:00 97.6 F 63 18 108/50 L 95 Room Air 03/01/25 15:00 Room Air 03/01/25 13:00 Room Air Intake and Output 03/01/25 03/02/25 03/02/25 23:59 07:59 15:59 Intake Total 360 / 960 120 / 120 Output Total 400 / 1350 250 / 250 Balance -40 / -390 -130 / -130 Intake: Intake, Oral Amount 360 / 960 120 / 120 Output: Output, Urine Amount 400 / 1350 250 / 250 Other: Number of Unmeasured Voids 1 Weight 117.753 kg Patient Weight 03/02/25 23:59 Weight 117.753 kg Laboratory Results - last 24 hr 03/02/25 07:07: WBC 10.9 H, RBC 3.13 L, Hgb 8.7 L, Hct 27.6 L, MCV 88.2, MCH 27.8, MCHC 31.5 L, RDW 15.7, Plt Count 395, MPV 9.1, Neut % (Auto) 70.1, Lymph % (Auto) 14.0, [place] % (Auto) 10.4 H, Eos % (Auto) 3.8, Baso % (Auto) 0.5, Neut # (Auto) 7.7, Lymph # (Auto) 1.5, [place] # (Auto) 1.1 H, Eos # (Auto) 0.4, Baso # (Auto) 0.1, Sodium 137, Potassium 4.8, Chloride 100, Carbon Dioxide 24, Anion Gap 17.8 H, BUN 25 H, Creatinine 2.00 H, Estimated Creat Clear 51, Estimated GFR 32 L, Est GFR ( Amer) 39 L, Glucose 101 H, Calcium 8.1 L, Total Bilirubin 0.4, AST 28, ALT 23, Alkaline Phosphatase 96, Troponin I 2.29 H, Total Protein 6.3, Albumin 3.5, Globulin 2.8, Albumin/Globulin Ratio 1.3 I & O for Labs for Last 24 Hours: Intake & Output 02/27/25 02/28/25 03/01/25 03/02/25 23:59 23:59 23:59 23:59 Intake Total 305.6 / 545.6 840 / 960 120 / 120 Output Total 2200 / 2350 1350 / 1350 250 / 250 Balance -1894.4 / -1804.4 -510 / -390 -130 / -130 Weight 119.748 kg 116.346 kg 117.753 kg Constitutional: Present no acute distress, obese, chronically ill appearing and cooperative Head: Present atraumatic and normocephalic ENT: Present normal exam Comment:: Poor dentition Respiratory: Present CTA bilaterally and normal respiratory effort; Absent accessory muscle use, rhonchi, wheezes or crackles Cardiac: Present Reg Rate and Rhythm GI: Present soft, tenderness (Epigastric, mild) and hyperactive bowel sounds; Absent distention Extremities: Present normal inspection and full ROM; Absent edema Comment:: Chronic stasis changes of legs, no edema. Skin: Present intact; Absent erythema Comment:: Chronic stasis changes, no open wounds. Dry scaling of leg Neuro: Present Grossly Intact, alert, awake, oriented x 3 and moves all extremities Assessment and Plan *Assessment and plan (1) Chest pain: Status: Acute Category: Medical Code(s): R07.9 - Chest pain, unspecified (2) Anemia: Status: Acute Category: Medical Code(s): D64.9 - Anemia, unspecified (3) UGIB (upper gastrointestinal bleed): Status: Resolved Category: Medical Code(s): K92.2 - Gastrointestinal hemorrhage, unspecified (4) CAD (coronary artery disease): Status: Acute Qualifiers: Coronary Disease-Associated Artery/Lesion type: [place] artery [place] vs. transplanted heart: [place] heart Associated angina: without angina Qualified Code(s): I25.10 - Atherosclerotic heart disease of [place] coronary artery without angina pectoris Category: Medical Code(s): I25.10 - Atherosclerotic heart disease of [place] coronary artery without angina pectoris (5) HFrEF (heart failure with reduced ejection fraction): Status: Acute Category: Medical Code(s): I50.20 - Unspecified systolic (congestive) heart failure (6) Class 2 obesity: Status: Chronic Category: Medical Code(s): E66.812 - Obesity, class 2 (7) Hypertension: Status: Chronic Qualifiers: Hypertension type: unspecified Qualified Code(s): I10 - Essential (primary) hypertension Category: Medical Code(s): I10 - Essential (primary) hypertension (8) Complaint of melena: Status: Acute Category: Medical Code(s): K92.1 - Melena (9) Typical angina: Status: Acute Category: Medical Code(s): I20.9 - Angina pectoris, unspecified (10) GERD (gastroesophageal reflux disease): Status: Acute Category: Medical Code(s): K21.9 - Gastro-esophageal reflux disease without esophagitis Plan Riki Mckeon is a 79-year-old male with a medical history significant for HFrEF, NSTEMI/CAD s/p 6 stents May 2024, hypothyroidism, BPH who presents for worsening chest pain over the past several days. States that he has also had an episode of hematemesis and has had dark stools over the past week. Denies fever, cough, headache or shortness of breath. Reports being compliant with his medications. Was stopped on his aspirin recently by his PCP due to concern for possible bleeding and PUD. Workup in the ER concerning for GI bleed and unstable angina. Troponin elevated at 1.4. Discussed case with ER physician, request admission for further workup of possible GI bleed and stabilization clinically. I agreed to admit for further care. Initial plan for discharge today until patient had vagal episode on bedside commode. Will continue to monitor inpatient. Administering transfusion today. Holding irbesartan. Repeat labs ordered for the afternoon. GI and cardiology continue to assist with care. Advancing diet. Problems addressed as follows: #Upper GI bleed #Chronic anemia ? Status post EGD on 03/01. Found to have punctate ulceration that was clipped. Caution with anticoagulation. Continue pantoprazole 40 mg IV twice daily - Continue sucralfate ACHS and misoprostol 200 mg 4 times a day - Hemoglobin stable today at 8.7. In light of his vagal episode, CAD, previous blood loss and bleeding ulcer, will transfuse 1 unit for goal of hemoglobin greater than 9. -Iron studies low with iron level of 31, sat of 9.8%, ferritin 17. - Status post Venofer 300 mg IV yesterday. Will consider additional dose prior to discharge. Would benefit from full course of 1 g total IV - Repeat CBC, CMP, magnesium ordered for the morning. # Acute on chronic HFrEF #CAD s/p 6 stents NSTEMI ?Continuing Plavix in the setting of elevated troponin and recent stenting within the past; serial troponins trended up from 1.28-2.3. Plateaued at 2.3 - Discussed case with cardiology, would like to see kidney function improved before proceeding with cath. Will either proceed with cath Wednesday if still admitted or have him follow-up closely as an outpatient in the beginning of the week for further evaluation - holding aspirin due to risk for GI bleed - Continue carvedilol 12 and half milligrams twice daily. Hold irbesartan given vagal episode - Repeat echo showed decreased EF of 45% with severe hypokinesis. BNP elevated at 6100 on admission. Diuresed well. Negative over 2-1/2 L since admission. Holding further diuretic - Continue Aldactone 25 mg daily - Resume Farxiga 10 mg daily #Hypothyroidism: Continue home levothyroxine 50 mcg. TSH marginally elevated at 5.4 #BPH: Significant chronic symptoms. Continue tamsulosin 0.8 mg nightly. Full code DVT prophylaxis: SCDs diabetic diet
[2025-03-02] MEDS: LACTATED RINGERS 1000ML 500 ML IV (13:07)
--- NOTE | 2025-03-02 18:44 | PC.NURSE ---
patient is alert and oriented x4, vss. patient became hypotensive and breifly unresponsive while transferring to the bedside commode this afternoon with the assistance of 2 CNAs, and this nurse were called in and assessed the patient, bp was 78/42, patient quickly became responsive again and was able to transfer back to bed where his vitals were monitored Q5min, patient had consistent systolic BPs in the high 70s low 80s, 500ml LR bolus given per MD order, BPs improved to 100s/60s, 1 unit of blood ordered by MD, infusing now. BPs remain stable.
[2025-03-02] MEDS: ATORVASTATIN 40MG TABLET 40 MG PO (20:47)
[2025-03-02] MEDS: TAMSULOSIN 0.4MG CAPSULE 0.8 MG PO (20:47)
[2025-03-02 21:53] LABS: Hematocrit 28.9 % (42.0-52.0); Hemoglobin 9.1 g/dL (14.1-18.0)
[2025-03-02 22:05] LABS: Chloride 101 mmol/L (98-107); Potassium 4.1 mmoL/L (3.5-5.1); Sodium 134 mmol/L (136-145)
[2025-03-02 22:08] LABS: Blood Urea Nitrogen 28 mg/dl (9-20); Creatinine Clearance Estimated 44 mL/min (50-200); Creatinine,Serum 2.30 mg/dl (0.66-1.25); Estimated Glomerular Filt Rate 28 ml/min (>60); GFR (African American) 33 ML/MIN (>60)
[2025-03-02 22:09] LABS: Anion Gap 14.1 mEq/L (5-15); Calcium 7.8 mg/dl (8.4-10.2); Carbon Dioxide 23 mmol/L (22.0-30.0); Glucose 127 mg/dl (74-100)
[2025-03-03] VITALS (8 sets, daily range): BP systolic 98–121; BP diastolic 40–66; PULSE 68–800; RESP 16–18; TEMP 36.4–36.9; O2SAT 96–100; BMI 38.5
[2025-03-03] MEDS: SUCRALFATE 1GM TABLET 1 GM PO ×4 (06:06→20:33)
[2025-03-03] MEDS: LEVOTHYROXINE 50MCG (0.05MG) TAB 50 MCG PO (06:06)
[2025-03-03 07:52] LABS: Hematocrit 30.1 % (42.0-52.0); Hemoglobin 9.4 g/dL (14.1-18.0); Immature Granulocytes % 0.9 %; Mean Corpuscular HGB Conc 31.2 g/dL (31.8-35.4); Mean Corpuscular Hemoglobin 27.5 pg (27.0-31.2); Mean Corpuscular Volume 88.0 fl (80-94); Nucleated Red Blood Cells % 0 %; Platelet Count 386 K/mm3 (142-424); Red Blood Count 3.42 M/mm3 (4.60-6.20); Red Cell Distribution Width-SD 50.8 fL; White Blood Count 12.1 K/mm3 (4.8-10.8)
[2025-03-03 08:16] LABS: Alanine Aminotransferase 21 U/L (12-78); Albumin Level 3.7 g/dl (3.5-5.0); Albumin/Globulin Ratio 1.2 (1.1-1.8); Alkaline Phosphatase 90 U/L (38-126); Anion Gap 13.2 mEq/L (5-15); Aspartate Amino Transferase 46 U/L (17-59); Bilirubin,Total 0.7 mg/dl (0.2-1.3); Blood Urea Nitrogen 29 mg/dl (9-20); Calcium 8.2 mg/dl (8.4-10.2); Carbon Dioxide 25 mmol/L (22.0-30.0); Chloride 100 mmol/L (98-107); Creatinine Clearance Estimated 43 mL/min (50-200); Creatinine,Serum 2.30 mg/dl (0.66-1.25); Estimated Glomerular Filt Rate 28 ml/min (>60); GFR (African American) 33 ML/MIN (>60); Globulin 3.1 g/dL (1.3-3.2); Glucose 108 mg/dl (74-100); Potassium 4.2 mmoL/L (3.5-5.1); Sodium 134 mmol/L (136-145); Total Protein,Serum 6.8 g/dl (6.3-8.2)
[2025-03-03] MEDS: PANTOPRAZOLE 40MG VIAL 40 MG IV ×2 (09:13→20:34)
[2025-03-03] MEDS: CLOPIDOGREL 75MG TAB 75 MG PO (09:13)
[2025-03-03] MEDS: SODIUM CHLORIDE 0.9% 10ML VIAL 10 ML IV (09:13)
[2025-03-03] MEDS: DAPAGLIFLOZIN PROPANEDIOL 10 MG TABLET PO (09:13)
[2025-03-03] MEDS: SPIRONOLACTONE 25MG TABLET 25 MG PO (09:14)
--- NOTE | 2025-03-03 12:07 | P.PN_ITS ---
Subjective *Date: 03/03/25 *Time: 12:07 Interval history: Feeling somewhat better today. Not dizzy. Working with therapy. Has just shortness of breath. Blood pressure still remains soft. Improved after transfusion yesterday. Tolerating p.o. intake with no nausea or vomiting. On room air this morning. Medical Exam Vital signs and Labs for Last 24 Hours: Vital Signs Temp Pulse Pulse Resp BP BP Pulse Ox 03/03/25 10:40 03/03/25 07:58 98.0 F 103 H 18 103/40 L 98 03/03/25 06:49 03/03/25 05:00 03/03/25 04:00 97.8 F 75 16 107/58 L 98 03/03/25 04:00 75 03/03/25 03:00 03/03/25 01:00 03/03/25 00:00 70 03/03/25 00:00 97.9 F 73 16 98/53 L 96 03/02/25 23:00 03/02/25 21:00 03/02/25 21:00 97.8 F 72 20 123/64 97 03/02/25 20:00 70 03/02/25 20:00 03/02/25 19:35 97.9 F 76 18 98/51 L 97 03/02/25 18:45 69 20 109/58 L 98 03/02/25 18:35 03/02/25 17:45 66 20 100/63 L 99 03/02/25 17:30 80 20 111/63 96 03/02/25 17:15 97.6 F 69 20 118/65 98 03/02/25 17:00 03/02/25 17:00 97.7 F 73 20 110/65 98 03/02/25 16:55 74 20 101/60 L 99 03/02/25 16:50 52 L 20 93/53 L 98 03/02/25 16:45 97.5 F L 75 20 97/43 L 98 03/02/25 16:30 97.7 F 72 20 109/65 L 99 03/02/25 16:00 60 03/02/25 15:58 98.1 F 67 17 125/64 98 03/02/25 15:00 03/02/25 13:00 O2 Del Method 03/03/25 10:40 Room Air 03/03/25 07:58 Room Air 03/03/25 06:49 Room Air 03/03/25 05:00 Room Air 03/03/25 04:00 Room Air 03/03/25 04:00 03/03/25 03:00 Room Air 03/03/25 01:00 Room Air 03/03/25 00:00 03/03/25 00:00 Room Air 03/02/25 23:00 Room Air 03/02/25 21:00 Room Air 03/02/25 21:00 03/02/25 20:00 03/02/25 20:00 Room Air 03/02/25 19:35 03/02/25 18:45 03/02/25 18:35 Room Air 03/02/25 17:45 03/02/25 17:30 03/02/25 17:15 03/02/25 17:00 Room Air 03/02/25 17:00 03/02/25 16:55 03/02/25 16:50 03/02/25 16:45 03/02/25 16:30 03/02/25 16:00 03/02/25 15:58 Room Air 03/02/25 15:00 Room Air 03/02/25 13:00 Room Air Intake and Output 03/02/25 03/03/25 03/03/25 23:59 07:59 15:59 Intake Total 520 / 1180 320 / 720 400 / 720 Output Total 250 / 700 350 / 350 Balance 270 / 480 -30 / 370 400 / 370 Intake: Intake, Oral Amount 270 / 930 320 / 720 400 / 720 Intake (Blood Product) Amt 250 / 250 Red Blood Cells Unit 250 / 250 [id number] Output: Output, Urine Amount 250 / 700 350 / 350 Other: Number of Unmeasured Voids 0 0 Weight 115.167 kg Patient Weight 03/03/25 23:59 Weight 115.167 kg Laboratory Results - last 24 hr 03/02/25 12:45: Blood Type A Positive, Antibody Screen Negative, Crossmatch (AHG) See Detail 03/02/25 21:38: Hgb 9.1 L, Hct 28.9 L, Sodium 134 L, Potassium 4.1, Chloride 101, Carbon Dioxide 23, Anion Gap 14.1, BUN 28 H, Creatinine 2.30 H, Estimated Creat Clear 44, Estimated GFR 28 L, Est GFR ( Amer) 33 L, Glucose 127 H D , Calcium 7.8 L 03/03/25 07:09: WBC 12.1 H, RBC 3.42 L, Hgb 9.4 L, Hct 30.1 L, MCV 88.0, MCH 27.5, MCHC 31.2 L, RDW 15.9, Plt Count 386, MPV 9.1, Neut % (Auto) 69.5, Lymph % (Auto) 13.4, [place] % (Auto) 12.2 H, Eos % (Auto) 3.6, Baso % (Auto) 0.4, Neut # (Auto) 8.4 H, Lymph # (Auto) 1.6, [place] # (Auto) 1.5 H, Eos # (Auto) 0.4, Baso # (Auto) 0.1, Sodium 134 L, Potassium 4.2, Chloride 100, Carbon Dioxide 25, Anion Gap 13.2, BUN 29 H, Creatinine 2.30 H, Estimated Creat Clear 43, Estimated GFR 28 L, Est GFR ( Amer) 33 L, Glucose 108 H, Calcium 8.2 L, Total Bilirubin 0.7, AST 46 D, ALT 21, Alkaline Phosphatase 90, Total Protein 6.8, Albumin 3.7, Globulin 3.1, Albumin/Globulin Ratio 1.2 I & O for Labs for Last 24 Hours: Intake & Output 02/28/25 03/01/25 03/02/25 03/03/25 23:59 23:59 23:59 23:59 Intake Total 305.6 / 545.6 840 / 960 980 / 1180 720 / 720 Output Total 2200 / 2350 1350 / 1350 700 / 700 350 / 350 Balance -1894.4 / -1804.4 -510 / -390 280 / 480 370 / 370 Weight 119.748 kg 116.346 kg 117.753 kg 115.167 kg Constitutional: Present no acute distress, obese, chronically ill appearing and cooperative Head: Present atraumatic and normocephalic ENT: Present normal exam Comment:: Poor dentition Respiratory: Present CTA bilaterally and normal respiratory effort; Absent accessory muscle use, rhonchi, wheezes or crackles Cardiac: Present Reg Rate and Rhythm GI: Present soft and normal bowel sounds; Absent distention or tenderness Extremities: Present normal inspection and full ROM; Absent edema Comment:: Chronic stasis changes of legs, no edema. Skin: Present intact; Absent erythema Comment:: Chronic stasis changes, no open wounds. Dry scaling of leg Neuro: Present Grossly Intact, alert, awake, oriented x 3 and moves all extremities Additional Findings:: Slight odor of urine. Patient is incontinent Assessment and Plan *Assessment and plan (1) Chest pain: Status: Acute Category: Medical Code(s): R07.9 - Chest pain, unspecified (2) Anemia: Status: Acute Category: Medical Code(s): D64.9 - Anemia, unspecified (3) UGIB (upper gastrointestinal bleed): Status: Resolved Category: Medical Code(s): K92.2 - Gastrointestinal hemorrhage, unspecified (4) CAD (coronary artery disease): Status: Acute Qualifiers: Coronary Disease-Associated Artery/Lesion type: [place] artery [place] vs. transplanted heart: [place] heart Associated angina: without angina Qualified Code(s): I25.10 - Atherosclerotic heart disease of [place] coronary artery without angina pectoris Category: Medical Code(s): I25.10 - Atherosclerotic heart disease of [place] coronary artery without angina pectoris (5) HFrEF (heart failure with reduced ejection fraction): Status: Acute Category: Medical Code(s): I50.20 - Unspecified systolic (congestive) heart failure (6) Class 2 obesity: Status: Chronic Category: Medical Code(s): E66.812 - Obesity, class 2 (7) Hypertension: Status: Chronic Qualifiers: Hypertension type: unspecified Qualified Code(s): I10 - Essential (primary) hypertension Category: Medical Code(s): I10 - Essential (primary) hypertension (8) Complaint of melena: Status: Acute Category: Medical Code(s): K92.1 - Melena (9) Typical angina: Status: Acute Category: Medical Code(s): I20.9 - Angina pectoris, unspecified (10) GERD (gastroesophageal reflux disease): Status: Acute Category: Medical Code(s): K21.9 - Gastro-esophageal reflux disease without esophagitis Rachel Mckeon is a 79-year-old male with a medical history significant for HFrEF, NSTEMI/CAD s/p May 2024, hypothyroidism, BPH who presents for worsening chest pain over the past several days. States that he has also had an episode of hematemesis and has had dark stools over the past week. Denies fever, cough, headache or shortness of breath. Reports being compliant with his medications. Was stopped on his aspirin recently by his PCP due to concern for possible bleeding and PUD. Workup in the ER concerning for GI bleed and unstable angina. Troponin elevated at 1.4. Discussed case with ER physician, request admission for further workup of possible GI bleed and stabilization clinically. I agreed to admit for further care. Doing better since his vagal episode yesterday. Will continue to monitor. GI and cardiology assisting with care. Problems addressed as follows: #Upper GI bleed #Chronic anemia ? Status post EGD on 03/01. Found to have punctate ulceration that was clipped. Caution with anticoagulation. Continue pantoprazole 40 mg IV twice daily - Continue sucralfate ACHS, will discontinue misoprostol due to concern for side effect with his flushing and soft blood pressures. - Transfused yesterday, hemoglobin improved to 9.4. Received 1 unit packed red blood cells. Received 300 mg dose IV of Venofer on 03/01. Will consider additional dose prior to discharge. - Transfusion threshold hemoglobin less than 9 -Iron studies low with iron level of 31, sat of 9.8%, ferritin 17. - Repeat CBC, CMP, magnesium ordered for the morning. # Acute on chronic HFrEF #CAD s/p 6 stents NSTEMI ?Continuing Plavix in the setting of elevated troponin and recent stenting within the past; serial troponins trended up from 1.28-2.3. Plateaued at 2.3; repeat level ordered for the morning. -Still awaiting kidney function to improve prior to heart cath. Continue to monitor. Kidney function somewhat worse today with creatinine 2.3. BUN 29. Monitor for improvement with holding ARB and improvement in blood pressure/volume with transfusion. -Holding carvedilol and irbesartan. Holding aspirin. Continue Plavix 75 mg daily - Repeat echo showed decreased EF of 45% with severe hypokinesis. BNP elevated at 6100 on admission. Diuresed well. Negative over 2-1/2 L since admission. Holding further diuretic - Continue Aldactone 25 mg daily and Farxiga 10 mg daily #Hypothyroidism: Continue home levothyroxine 50 mcg. TSH marginally elevated at 5.4 #BPH: Significant chronic symptoms. Continue tamsulosin 0.8 mg nightly. Full code DVT prophylaxis: SCDs diabetic diet
--- NOTE | 2025-03-03 14:44 | PC.NURSE ---
PT IS RESTING IN BED. ALERT AND ORIENTED X3. PT HAS TOLERATED BLAND DIET. LUNG SOUNDS CLEAR. ABDOMEN SOFT/NON TENDER WITH ACTIVE BOWEL SOUNDS. PT PARTICIPATED WITH PHYSICAL THERAPY THIS MORNING. REDNESS NOTED TO BUTTOCKS. DRESSING NOTED TO LEFT FOOT. WILL CONTINUE TO MONITOR.
[2025-03-03] MEDS: ATORVASTATIN 40MG TABLET 40 MG PO (20:33)
[2025-03-03] MEDS: CARVEDILOL 12.5MG TABLET 12.5 MG PO (20:33)
[2025-03-03] MEDS: TAMSULOSIN 0.4MG CAPSULE 0.8 MG PO (20:34)
[2025-03-04] VITALS (9 sets, daily range): BP systolic 102–136; BP diastolic 53–65; PULSE 65–80; RESP 16–18; TEMP 36.6–36.9; O2SAT 98–99; BMI 38.9
--- NOTE | 2025-03-04 02:10 | PC.NURSE ---
Pt AOx4. New IV 20g right forearm. Pt continually denies pain or any additional needs. Room air. VSS. Pt currently resting in bed with eyes closed. Respirations even and unlabored. Bed is low, locked, and call light is in reach.
[2025-03-04] MEDS: SUCRALFATE 1GM TABLET 1 GM PO ×4 (06:01→20:20)
[2025-03-04] MEDS: LEVOTHYROXINE 50MCG (0.05MG) TAB 50 MCG PO (06:01)
[2025-03-04 07:51] LABS: Hematocrit 30.1 % (42.0-52.0); Hemoglobin 9.4 g/dL (14.1-18.0); Immature Granulocytes % 1.4 %; Mean Corpuscular HGB Conc 31.2 g/dL (31.8-35.4); Mean Corpuscular Hemoglobin 27.7 pg (27.0-31.2); Mean Corpuscular Volume 88.8 fl (80-94); Nucleated Red Blood Cells % 0 %; Platelet Count 371 K/mm3 (142-424); Red Blood Count 3.39 M/mm3 (4.60-6.20); Red Cell Distribution Width-SD 51.1 fL; White Blood Count 10.5 K/mm3 (4.8-10.8)
--- NOTE | 2025-03-04 08:06 | EXP.ACUTE.PN ---
Subjective *Date: 03/04/25 *Time: 10:54 Interval history: Patient states he is feeling better. No further episodes of dizziness or syncope yesterday. Denies chest pain, shortness of breath, nausea or vomiting. On room air. Afebrile. Tolerating p.o. intake. Brother at bedside, updated of plan Medical Exam Vital signs and Labs for Last 24 Hours: Vital Signs Temp Pulse Pulse Resp BP Pulse Ox O2 Del Method 03/04/25 06:36 Room Air 03/04/25 05:00 Room Air 03/04/25 04:00 65 03/04/25 03:48 98.5 F 69 18 102/60 L 98 Room Air 03/04/25 03:00 Room Air 03/04/25 01:00 Room Air 03/04/25 00:00 65 03/03/25 23:54 98.5 F 68 18 120/57 L 96 Room Air 03/03/25 23:00 Room Air 03/03/25 21:00 Room Air 03/03/25 20:00 75 03/03/25 20:00 98.2 F 80 18 110/53 L 98 Room Air 03/03/25 20:00 Room Air 03/03/25 18:53 Room Air 03/03/25 17:00 Room Air 03/03/25 16:00 98.1 F 79 18 121/62 98 Room Air 03/03/25 16:00 800 H 03/03/25 14:36 Room Air 03/03/25 12:47 Room Air 03/03/25 12:00 70 03/03/25 12:00 97.6 F 74 18 108/66 L 100 Room Air 03/03/25 10:40 Room Air Intake and Output 03/03/25 03/04/25 03/04/25 23:59 07:59 15:59 Intake Total 360 / 1480 Output Total 550 / 900 300 / 300 Balance -190 / 580 -300 / -300 Intake: Intake, Oral Amount 360 / 1480 Output: Output, Urine Amount 550 / 900 300 / 300 Other: Number of Unmeasured Voids 0 Weight 116.528 kg Patient Weight 03/04/25 23:59 Weight 116.528 kg Laboratory Results - last 24 hr 03/03/25 07:09: WBC 12.1 H, RBC 3.42 L, Hgb 9.4 L, Hct 30.1 L, MCV 88.0, MCH 27.5, MCHC 31.2 L, RDW 15.9, Plt Count 386, MPV 9.1, Neut % (Auto) 69.5, Lymph % (Auto) 13.4, [place] % (Auto) 12.2 H, Eos % (Auto) 3.6, Baso % (Auto) 0.4, Neut # (Auto) 8.4 H, Lymph # (Auto) 1.6, [place] # (Auto) 1.5 H, Eos # (Auto) 0.4, Baso # (Auto) 0.1, Sodium 134 L, Potassium 4.2, Chloride 100, Carbon Dioxide 25, Anion Gap 13.2, BUN 29 H, Creatinine 2.30 H, Estimated Creat Clear 43, Estimated GFR 28 L, Est GFR ( Amer) 33 L, Glucose 108 H, Calcium 8.2 L, Total Bilirubin 0.7, AST 46 D, ALT 21, Alkaline Phosphatase 90, Total Protein 6.8, Albumin 3.7, Globulin 3.1, Albumin/Globulin Ratio 1.2 I & O for Labs for Last 24 Hours: Intake & Output 03/01/25 03/02/25 03/03/25 03/04/25 23:59 23:59 23:59 23:59 Intake Total 840 / 960 980 / 1180 1480 / 1480 Output Total 1350 / 1350 700 / 700 900 / 900 300 / 300 Balance -510 / -390 280 / 480 580 / 580 -300 / -300 Weight 116.346 kg 117.753 kg 115.167 kg 116.528 kg Constitutional: Present no acute distress, obese, chronically ill appearing and cooperative Head: Present atraumatic and normocephalic ENT: Present normal exam Comment:: Poor dentition Respiratory: Present CTA bilaterally and normal respiratory effort; Absent accessory muscle use, rhonchi, wheezes or crackles Cardiac: Present Reg Rate and Rhythm GI: Present soft and normal bowel sounds; Absent distention or tenderness Extremities: Present normal inspection and full ROM; Absent edema Comment:: Chronic stasis changes of legs, no edema. Skin: Present intact; Absent erythema Comment:: Chronic stasis changes, no open wounds. Dry scaling of leg Neuro: Present Grossly Intact, alert, awake, oriented x 3 and moves all extremities Additional Findings:: Slight odor of urine. Patient is incontinent Assessment and Plan *Assessment and plan (1) Chest pain: Status: Acute Category: Medical Code(s): R07.9 - Chest pain, unspecified (2) Anemia: Status: Acute Category: Medical Code(s): D64.9 - Anemia, unspecified (3) UGIB (upper gastrointestinal bleed): Status: Resolved Category: Medical Code(s): K92.2 - Gastrointestinal hemorrhage, unspecified (4) CAD (coronary artery disease): Status: Acute Qualifiers: Associated angina: without angina Coronary Disease-Associated Artery/Lesion type: [place] artery [place] vs. transplanted heart: [place] heart Qualified Code(s): I25.10 - Atherosclerotic heart disease of [place] coronary artery without angina pectoris Category: Medical Code(s): I25.10 - Atherosclerotic heart disease of [place] coronary artery without angina pectoris (5) HFrEF (heart failure with reduced ejection fraction): Status: Acute Category: Medical Code(s): I50.20 - Unspecified systolic (congestive) heart failure (6) Class 2 obesity: Status: Chronic Category: Medical Code(s): E66.812 - Obesity, class 2 (7) Hypertension: Status: Chronic Qualifiers: Hypertension type: unspecified Qualified Code(s): I10 - Essential (primary) hypertension Category: Medical Code(s): I10 - Essential (primary) hypertension (8) Complaint of melena: Status: Acute Category: Medical Code(s): K92.1 - Melena (9) Typical angina: Status: Acute Category: Medical Code(s): I20.9 - Angina pectoris, unspecified (10) GERD (gastroesophageal reflux disease): Status: Acute Category: Medical Code(s): K21.9 - Gastro-esophageal reflux disease without esophagitis (11) Acute non-ST elevation myocardial infarction (NSTEMI): Status: Acute Category: Medical Code(s): I21.4 - Non-ST elevation (NSTEMI) myocardial infarction Plan Riki Mckeon is a 79-year-old male with a medical history significant for HFrEF, NSTEMI/CAD s/p 6 stents May 2024, hypothyroidism, BPH who presents for worsening chest pain over the past several days. States that he has also had an episode of hematemesis and has had dark stools over the past week. Denies fever, cough, headache or shortness of breath. Reports being compliant with his medications. Was stopped on his aspirin recently by his PCP due to concern for possible bleeding and PUD. Workup in the ER concerning for GI bleed and unstable angina. Troponin elevated at 1.4. Discussed case with ER physician, request admission for further workup of possible GI bleed and stabilization clinically. I agreed to admit for further care. Remains hemodynamically stable. No further vagal episodes. Continues to require inpatient management, plan for heart cath tomorrow. GI and cardiology assisting with care. Problems addressed as follows: #Upper GI bleed #Chronic anemia ? Status post EGD on 03/01. Found to have punctate ulceration that was clipped. Caution with anticoagulation. Continue pantoprazole 40 mg IV twice daily - Continue sucralfate ACHS - Status post 1 unit of packed red blood cells. Hemoglobin remained stable. 9.4 this morning. Will consider administering repeat dose of Venofer in the morning. Received 300 mg IV on 03/01. - Transfusion threshold hemoglobin less than 9 - Iron studies low with iron level of 31, sat of 9.8%, ferritin 17. - Repeat CBC, CMP, magnesium ordered for the morning. # Acute on chronic HFrEF #CAD s/p 6 stents NSTEMI ?Continuing Plavix in the setting of elevated troponin and recent stenting within the past; troponins have trended up. Repeat this morning of 6.26. Patient is chest pain-free. Repeat EKG obtained showing no ST elevations. Patient is chest pain-free. - Kidney function down to 2.0 today. Creatinine peaked at 2.3 yesterday. BUN stable at 29. Having stable urine output. - Monitor for improvement with holding ARB and improvement in blood pressure/volume with transfusion. - Holding carvedilol and irbesartan. Holding aspirin. Continue Plavix 75 mg daily - Repeat echo showed decreased EF of 45% with severe hypokinesis. BNP elevated at 6100 on admission. Diuresed well. Negative over 2-1/2 L since admission. Holding further diuretic - Continue Aldactone 25 mg daily and Farxiga 10 mg daily #Hypothyroidism: Continue home levothyroxine 50 mcg. TSH marginally elevated at 5.4 #BPH: Significant chronic symptoms. Continue tamsulosin 0.8 mg nightly. Full code DVT prophylaxis: SCDs diabetic diet
[2025-03-04 08:29] LABS: Alanine Aminotransferase 18 U/L (12-78); Albumin Level 3.6 g/dl (3.5-5.0); Albumin/Globulin Ratio 1.2 (1.1-1.8); Alkaline Phosphatase 87 U/L (38-126); Anion Gap 15.0 mEq/L (5-15); Aspartate Amino Transferase 37 U/L (17-59); Bilirubin,Total 0.6 mg/dl (0.2-1.3); Blood Urea Nitrogen 29 mg/dl (9-20); Calcium 8.2 mg/dl (8.4-10.2); Carbon Dioxide 25 mmol/L (22.0-30.0); Chloride 100 mmol/L (98-107); Creatinine Clearance Estimated 50 mL/min (50-200); Creatinine,Serum 2.00 mg/dl (0.66-1.25); Estimated Glomerular Filt Rate 32 ml/min (>60); GFR (African American) 39 ML/MIN (>60); Globulin 3.1 g/dL (1.3-3.2); Glucose 101 mg/dl (74-100); Magnesium 2.0 mg/dl (1.6-2.3); Potassium 4.0 mmoL/L (3.5-5.1); Sodium 136 mmol/L (136-145); Total Protein,Serum 6.7 g/dl (6.3-8.2)
[2025-03-04 08:41] LABS: Troponin I 6.26 ng/ml (0.00-0.034)
--- NOTE | 2025-03-04 09:35 | ECG_ITS ---
APPROVED REPORT Exam: Resting ECG HR:70 bpm ECG Measurements Heart Rate 70 AXES MD 249 P 50 QRSd 95 QRS -7 QT 406 T 49 QTc 427 Conclusion SINUS RHYTHM WITH FIRST DEGREE AV BLOCK LOW QRS VOLTAGE IN PRECORDIAL LEADS [QRS DEFLECTION < 1.0 mV IN CHEST LEADS] ANTEROSEPTAL MYOCARDIAL INFARCTION , PROBABLY OLD [40+ ms Q WAVE IN V1-V4] ABNORMAL ECG UNCONFIRMED REPORT Electronically signed by : Gasper [place] MD 03/05/2025 16:49:23
[2025-03-04] MEDS: SODIUM CHLORIDE 0.9% 10ML VIAL 10 ML IV ×2 (10:05→20:20)
[2025-03-04] MEDS: PANTOPRAZOLE 40MG VIAL 40 MG IV ×2 (10:05→20:20)
[2025-03-04] MEDS: CLOPIDOGREL 75MG TAB 75 MG PO (10:06)
[2025-03-04] MEDS: DAPAGLIFLOZIN PROPANEDIOL 10 MG TABLET PO (10:06)
[2025-03-04] MEDS: SPIRONOLACTONE 25MG TABLET 25 MG PO (10:06)
[2025-03-04] MEDS: TAMSULOSIN 0.4MG CAPSULE 0.8 MG PO (20:20)
[2025-03-04] MEDS: CARVEDILOL 12.5MG TABLET 12.5 MG PO (20:20)
[2025-03-04] MEDS: ATORVASTATIN 40MG TABLET 40 MG PO (20:20)
[2025-03-05] VITALS (14 sets, daily range): BP systolic 89–116; BP diastolic 51–80; PULSE 54–70; RESP 16–20; TEMP 36.5–36.6; O2SAT 90–100; BMI 39.2
[2025-03-05] MEDS: NITROGLYCERIN 0.4MG SL TABLET 0.4 MG SL (02:41)
--- NOTE | 2025-03-05 04:04 | PC.NURSE ---
Pt A&O x4. Pt is on RA. Pt has a 1st degree AV block on telemetry. Pt has been NPO since [place] pending cardiology consult and possible heart cath today. Pt c/o chest pain that was relived by 1 dose of nitro. Pt not voicing any further concerns at this time. No significant changes noted. Pt resting with call light in reach. Plan of care ongoing.
[2025-03-05] MEDS: SUCRALFATE 1GM TABLET 1 GM PO ×2 (06:05→16:22)
[2025-03-05] MEDS: LEVOTHYROXINE 50MCG (0.05MG) TAB 50 MCG PO (06:05)
[2025-03-05 06:17] LABS: Hematocrit 29.6 % (42.0-52.0); Hemoglobin 9.6 g/dL (14.1-18.0); Immature Granulocytes % 1.4 %; Mean Corpuscular HGB Conc 32.4 g/dL (31.8-35.4); Mean Corpuscular Hemoglobin 28.2 pg (27.0-31.2); Mean Corpuscular Volume 87.1 fl (80-94); Nucleated Red Blood Cells % 0 %; Platelet Count 385 K/mm3 (142-424); Red Blood Count 3.40 M/mm3 (4.60-6.20); Red Cell Distribution Width-SD 49.3 fL; White Blood Count 11.1 K/mm3 (4.8-10.8)
[2025-03-05 06:30] LABS: Alanine Aminotransferase 17 U/L (12-78); Albumin Level 3.4 g/dl (3.5-5.0); Albumin/Globulin Ratio 1.1 (1.1-1.8); Alkaline Phosphatase 82 U/L (38-126); Anion Gap 15.9 mEq/L (5-15); Aspartate Amino Transferase 29 U/L (17-59); Bilirubin,Total 0.3 mg/dl (0.2-1.3); Blood Urea Nitrogen 31 mg/dl (9-20); Calcium 8.0 mg/dl (8.4-10.2); Carbon Dioxide 23 mmol/L (22.0-30.0); Chloride 102 mmol/L (98-107); Creatinine Clearance Estimated 48 mL/min (50-200); Creatinine,Serum 2.10 mg/dl (0.66-1.25); Estimated Glomerular Filt Rate 31 ml/min (>60); GFR (African American) 37 ML/MIN (>60); Globulin 3.1 g/dL (1.3-3.2); Glucose 109 mg/dl (74-100); Potassium 3.9 mmoL/L (3.5-5.1); Sodium 137 mmol/L (136-145); Total Protein,Serum 6.5 g/dl (6.3-8.2)
[2025-03-05 06:56] LABS: Troponin I 4.04 ng/ml (0.00-0.034)
--- NOTE | 2025-03-05 06:56 | PC.NURSE ---
MD Chaves notified of critical lab result of Troponin 4.04.
[2025-03-05] MEDS: SPIRONOLACTONE 25MG TABLET 25 MG PO (08:37)
[2025-03-05] MEDS: CLOPIDOGREL 75MG TAB 75 MG PO (08:37)
[2025-03-05] MEDS: IRON SUCROSE COMPLEX 300 MG in 0.9 % SODIUM CHLORIDE 250 ML 76.667 MG IV (08:37)
[2025-03-05] MEDS: SODIUM CHLORIDE 0.9% 10ML VIAL 10 ML IV (08:38)
[2025-03-05] MEDS: CARVEDILOL 12.5MG TABLET 12.5 MG PO (08:38)
[2025-03-05] MEDS: DAPAGLIFLOZIN PROPANEDIOL 10 MG TABLET PO (08:38)
[2025-03-05] MEDS: PANTOPRAZOLE 40MG VIAL 40 MG IV (08:38)
--- NOTE | 2025-03-05 09:49 | EXP.CARD.CON ---
[facility] Disclaimer: The information contained in this section may have been updated after the patient was seen, as this information can be updated by other users. Medical History (Updated 03/04/25 @ 10:55 by Luis Marino MD) Bilateral lower leg cellulitis Lymphedema of both lower extremities Chronic acquired lymphedema UGIB (upper gastrointestinal bleed) PUD (peptic ulcer disease) Duodenitis Nausea and vomiting Nausea Encounter for laboratory testing for COVID-19 virus Diabetes mellitus Gastroenteritis and colitis, viral Dehydration PICC (peripherally inserted central catheter) in place Diabetic foot Multiple drug resistant organism (MDRO) culture positive Near syncope Cellulitis, leg Ingrowing Toenail Callus of foot Onychoincurvatum Onychodystrophy Pain around toenail, left foot Ingrowing Toenail Cellulitis of right leg Arthritis PAD (peripheral artery disease) HTN (hypertension), benign Heart murmur T2DM (type 2 diabetes mellitus) BPH (benign prostatic hyperplasia) Peripheral vascular disease Surgical History Hx of colonoscopy History of total left hip replacement Family History Other Cancer Heart attack Social History Smoking Status: Current some day smoker tobacco type: cigarettes packs per day: 1 alcohol intake: never substance use type: denies use current occupational status: retired Travel in the last 8 weeks?: None household members: none housing: house current occupation: [employer] current occupational exposures/hazards: No caffeine: Yes Have you lived/traveled outside [place] in past 30 days?: No Contact w/someone who lives/traveled outside US past 30 days?: No Exposure to someone with infectious disease in past 14 days?: No Do you have a fever (greater than 100.4 F or 38 C)?: No Have you tested positive for COVID-19?: No Exposed to someone with COVID-19 in past 14 days?: No Do you have a sore throat?: No Do you have a cough?: No Do you have any weakness?: No Do you have any diarrhea?: No Are you experiencing any unusual bleeding?: No Do you have any muscle aches/pain?: No Do you have any abdominal pain?: No Are you experiencing loss of taste or smell?: No Review of Systems *Neurologic Neurologic: Reports system reviewed and no additional complaints, except as documented and Denies confusion Psychiatric Psychiatric: Denies confusion Exam Data for Last 24 hours Vital signs and Labs for Last 24 Hours: Temp Pulse Resp BP Pulse Ox O2 Del Method O2 Flow Rate 97.7 F 65 16 110/55 L 100 Room Air 2 03/05/25 08:00 03/05/25 08:00 03/05/25 08:00 03/05/25 08:00 03/05/25 08:00 03/05/25 08:00 03/01/25 09:18 Laboratory Results - last 24 hr 03/05/25 05:15: WBC 11.1 H, RBC 3.40 L, Hgb 9.6 L, Hct 29.6 L, MCV 87.1, MCH 28.2, MCHC 32.4, RDW 15.6, Plt Count 385, MPV 9.3, Neut % (Auto) 68.6, Lymph % (Auto) 14.5, [place] % (Auto) 9.9 H, Eos % (Auto) 4.8, Baso % (Auto) 0.8, Neut # (Auto) 7.6, Lymph # (Auto) 1.6, [place] # (Auto) 1.1 H, Eos # (Auto) 0.5 H, Baso # (Auto) 0.1, Sodium 137, Potassium 3.9, Chloride 102, Carbon Dioxide 23, Anion Gap 15.9 H, BUN 31 H, Creatinine 2.10 H, Estimated Creat Clear 48, Estimated GFR 31 L, Est GFR ( Amer) 37 L, Glucose 109 H, Calcium 8.0 L, Total Bilirubin 0.3, AST 29, ALT 17, Alkaline Phosphatase 82, Troponin I 4.04 H, Total Protein 6.5, Albumin 3.4 L, Globulin 3.1, Albumin/Globulin Ratio 1.1 I & O for Last 24 hours: Intake & Output 03/02/25 03/03/25 03/04/25 03/05/25 23:59 23:59 23:59 23:59 Intake Total 980 / 1180 1480 / 1480 720 / 720 270 / 270 Output Total 700 / 700 900 / 900 850 / 850 300 / 300 Balance 280 / 480 580 / 580 -130 / -130 -30 / -30 Weight 259 lb 9.6 oz 253 lb 14.4 oz 256 lb 14.4 oz 258 lb 6.4 oz Meds Home Medications and Allergies Home Medications ?Medication ?Instructions ?Recorded ?Confirmed ?Type tamsulosin 0.4 mg capsule 0.8 mg PO HS 04/04/18 03/01/25 History clopidogrel 75 mg tablet 75 mg PO DAILY #90 tabs 07/18/24 02/28/25 Rx furosemide 20 mg tablet 20 mg PO MOWEFR 08/17/24 02/28/25 History valsartan 80 mg tablet 80 mg PO BID 09/04/24 02/28/25 History dapagliflozin propanediol 10 mg 10 mg PO DAILY #30 tabs 11/15/24 02/28/25 Rx tablet (Farxiga) carvedilol 12.5 mg tablet 12.5 mg PO BID #60 tabs 12/13/24 02/28/25 Rx famotidine 40 mg tablet 40 mg PO HS 12/13/24 02/28/25 History nitroglycerin 0.4 mg sublingual 0.4 mg sublingual Q5M PRN chest 12/13/24 02/28/25 Rx tablet pain #25 tabs spironolactone 25 mg tablet 25 mg PO DAILY 12/13/24 02/28/25 History levothyroxine 50 mcg tablet 50 mcg PO DAILY 02/28/25 02/28/25 History atorvastatin 40 mg tablet 40 mg PO HS 30 days #30 tabs 03/02/25 Rx misoprostol 200 mcg tablet 200 mcg PO BIDWMEAL 5 days #10 tabs 03/02/25 Rx New Prescriptions to Start Prescriptions: Luis Guadalupe misoprostol Luis Marino Allergies Allergy/AdvReac Type Severity Reaction Status Date / Time Antihistamines - Alkylamine Allergy Mild MADE SKIN Verified 01/15/25 14:51 (ANTIHISTAMINES - ALKYLAMINE) FEEL LIKE ON FIRE NSAIDS (Non-Steroidal AdvReac Severe kidney Verified 01/15/25 14:51 Anti-Inflamma failure
--- NOTE | 2025-03-05 09:50 | IR_ITS ---
APPROVED REPORT Patient Location: Inpatient Lead Investigator: CARY Aguilera RT (R) PROCEDURES Selective coronary angiogram Drug-eluting stent deployment to the proximal circumflex artery Drug-eluting stent deployment to the ostial proximal right coronary artery followed by additional noncontiguous stenting of the proximal to mid right coronary INDICATION Acute non-ST elevation myocardial infarction, Coronary artery disease, Patient deemed an operable based on extensive comorbidities Informed consent was obtained prior to the procedure. COMPLICATIONS None Estimated Blood Loss: Less than 10 mls TECHNIQUE One percent lidocaine used to anesthetize the right medial aspect of the wrist. The right ulnar artery was accessed via the Seldinger technique. A 6 [place] sheath was placed in the right ulnar artery. 2.5 mg of Verapamil, 800 mcg of nitroglycerin, 1mg Lidocaine and 5000 U Heparin were given through the arterial sheath. The JL3 catheter was also used to perform selective coronary angiogram. At the end of the procedure therapeutic Was administered giving a therapeutic ACT and the guide catheter was placed in the left main artery followed by Choice PT extra-support wire placed down the circumflex artery. 3.5 x 12 mm [place] frontier stent was placed in the proximal portion and deployed at 24 cristopher reducing the critical stenosis to 0% NEAL II flow improved to NEAL-3 flow. The catheter was then placed in the right coronary artery followed by GuideLiner. A 3.5 x 12 mm Sanford frontier stent was deployed at 24 cristopher in the proximal critical stenosis reducing the stenosis to 0%. Following this a 2 mm balloon had to dilate the ostial segment of the stent followed by 3.5 mm balloon in the ostial segment. A 3.5 x 15 mm [place] frontier stent was then placed in the proximal to mid right coronary artery in a noncontiguous manner and deployed at 24 cristopher. The balloon was brought back and deployed at 24 cristopher in the ostium of the right coronary artery. NEAL II flow was present at the beginning of the procedure with NEAL-3 flow at the end the procedure. At the end of procedure the apparatus was removed sheath was removed and hemostasis was achieved using TR banding patient was transferred to the postop putting in stable condition ANGIOGRAPHIC RESULTS The left main artery Patent The left anterior descending artery Has proximal 70% stenosis and then gives rise to a patent first diagonal artery which has 50% stenoses. The LAD is then occluded distal to the diagonal artery takeoff and fills scantly via left to left collaterals The circumflex artery Large-caliber with a proximal concentric 90% stenosis with remaining vessel widely patent The right coronary artery Dominant with an proximal greater than 90% stenosis followed by an additional concentric 90% stenosis. The IBANEZ ventriculogram reveals Not performed The left ventricular end-diastolic pressure Not measured IMPRESSION Critical coronary disease as described above Successful stenting of a critically diseased circumflex artery critical disease reduced to 0% with 1 drug-eluting stent improving NEAL II flow to NEAL-3 flow Successful stenting of tandem critically diseased right coronary artery disease with 2 noncontiguous stents improving NEAL II flow to NEAL-3 flow PLAN 1. Dual antiplatelet therapy 2. Monitor for contrast nephropathy 3. Gentle IV fluids 4. LDL less than 55 achieved with high intensity statin 5. Avoidance of tobacco products 6. Official echocardiogram to better evaluate ejection fraction Electronically signed by : Jeffrey Conway MD 03/05/2025 12:37:51
--- NOTE | 2025-03-05 09:51 | EXP.CARD.PN ---
Subjective Subjective Date: 03/05/25 Time: 09:00 Principal diagnosis: NSTEMI, GI bleed Interval history: Patient kept over the weekend due to episode of syncope believed to be vasovagal syncope as he was having a bowel movement and drop in blood pressure with pallor and diaphoresis. No further chest pain but repeat troponin was checked and elevated to 6. Decision made by hospitalist to keep him here over the weekend rather than discharging and trying to arrange close outpatient follow-up. Patient labs are stable today and he is agreeable to heart cath Exam Data for Last 24 hours Vital signs and Labs for Last 24 Hours: Temp Pulse Resp BP Pulse Ox O2 Del Method O2 Flow Rate 97.7 F 65 16 110/55 L 100 Room Air 2 03/05/25 08:00 03/05/25 08:00 03/05/25 08:00 03/05/25 08:00 03/05/25 08:00 03/05/25 08:00 03/01/25 09:18 Laboratory Results - last 24 hr 03/05/25 05:15: WBC 11.1 H, RBC 3.40 L, Hgb 9.6 L, Hct 29.6 L, MCV 87.1, MCH 28.2, MCHC 32.4, RDW 15.6, Plt Count 385, MPV 9.3, Neut % (Auto) 68.6, Lymph % (Auto) 14.5, [place] % (Auto) 9.9 H, Eos % (Auto) 4.8, Baso % (Auto) 0.8, Neut # (Auto) 7.6, Lymph # (Auto) 1.6, [place] # (Auto) 1.1 H, Eos # (Auto) 0.5 H, Baso # (Auto) 0.1, Sodium 137, Potassium 3.9, Chloride 102, Carbon Dioxide 23, Anion Gap 15.9 H, BUN 31 H, Creatinine 2.10 H, Estimated Creat Clear 48, Estimated GFR 31 L, Est GFR ( Amer) 37 L, Glucose 109 H, Calcium 8.0 L, Total Bilirubin 0.3, AST 29, ALT 17, Alkaline Phosphatase 82, Troponin I 4.04 H, Total Protein 6.5, Albumin 3.4 L, Globulin 3.1, Albumin/Globulin Ratio 1.1 I & O for Last 24 hours: Intake & Output 03/02/25 03/03/25 03/04/25 03/05/25 23:59 23:59 23:59 23:59 Intake Total 980 / 1180 1480 / 1480 720 / 720 270 / 270 Output Total 700 / 700 900 / 900 850 / 850 300 / 300 Balance 280 / 480 580 / 580 -130 / -130 -30 / -30 Weight 259 lb 9.6 oz 253 lb 14.4 oz 256 lb 14.4 oz 258 lb 6.4 oz Constitutional Constitutional: no acute distress and cooperative *Routine HEENT Exam Eye: Present PERRL *Routine Respiratory Exam Respiratory: Present CTA bilaterally; Absent accessory muscle use, wheezes or crackles *Routine Cardiovascular Exam Cardiovascular: Present RRR, Normal S1 and Normal S2; Absent murmur, gallop or rubs *Routine Abdominal Exam Abdominal: Present soft; Absent tenderness *Routine Extremities Exam Extremities: Present pulses intact; Absent cyanosis or edema *Routine Skin Exam Skin: Present intact; Absent erythema or wounds *Routine Neurological Exam Neurological: Present alert and oriented X3 Routine Psychiatric Exam Psychiatric: Present cooperative Progress Note: A&P Assessment and plan (1) Acute non-ST elevation myocardial infarction (NSTEMI): Status: Acute (2) Chest pain: Status: Acute (3) Anemia: Status: Acute (4) UGIB (upper gastrointestinal bleed): Status: Resolved (5) CAD (coronary artery disease): Status: Acute (6) HFrEF (heart failure with reduced ejection fraction): Status: Acute (7) Class 2 obesity: Status: Chronic (8) Hypertension: Status: Chronic (9) Complaint of melena: Status: Acute (10) Typical angina: Status: Acute (11) GERD (gastroesophageal reflux disease): Status: Acute Assessment and Plan Assessment and Plan for All Diagnoses:: NSTEMI in setting of MV-CAD and GI Bleed - known CAD s/p 7 JAMIL 05/2024 - presented here with angina, rising serial Trop to peak of 6.2, no ST elevations, ECHO largely unchanged - pt has received iron and 1 unit PRBC but worsening underlying ischemia cannot be excluded, pt agreeable to [facility] - cont Plavix, BB, Statin. ASA on hold due to Duodenal ulcer - Plan: [facility] today, resume ASA if additional stenting Acute on Chronic HFrEF - known dx with EF originally 30% in setting of new MV-CAD 05/2024, was in a LifeVest at that time - EF recovered to 45% oupatient, LifeVest DC'd - ECHO here shows EF 40% - ProBNP 6k - Symptoms significantly improved s/p Iron and PRBC - Appears euvolemic, NYHA = 2 - cont Farxiga, Aldactone, Coreg, no ARNI due to CKD Upper GI Bleed - duodenal ulcer s/p endoclip this admission - s/p iron and 1 unit PRBC - labs stable now for days - cont Plavix, PPI, Misoprostel, and Iron per GI/Hospitalist - monitor for any further bleeding, will resume coated ASA if additional stenting today CKD-III - baseline Cr around 2 - peaked at 2.3 here, now back to baseline - cont to dose adjust meds and monitor outpatient Chronic BLE Lymphedema - cont wound care and OP therapeutics as needed Obesity, BMI 39 - needs aggressive weight loss via diet and exercise 03/05: CV stable, further plans pending [facility] today. Likely DC today.
[2025-03-05] MEDS: NITROGLYCERIN 800MCG/8ML SYR (CATH LAB) 800 MCG IA (11:13)
[2025-03-05] MEDS: HEPARIN 1,000 UNITS/ML 10ML VIAL (CATH LAB) 5000 UNIT IV (11:13)
[2025-03-05] MEDS: HEPARIN 1,000 UNITS/500ML NS (CATH LAB) 3000 UNIT IV (11:13)
[2025-03-05] MEDS: VERAPAMIL 2.5MG/ML 2ML VIAL 2.5 MG IV (11:13)
[2025-03-05] MEDS: MIDAZOLAM HCL 1MG/ML 5ML VIAL 1 MG IV (11:14)
[2025-03-05] MEDS: LIDOCAINE 1% 10ML MDV 10 ML IJ (11:14)
[2025-03-05] MEDS: FENTANYL 100MCG/2ML VIAL 50 MCG IV (11:14)
[2025-03-05] MEDS: 0.9 % SODIUM CHLORIDE 500 ML 25 ML IV (11:14)
[2025-03-05] MEDS: IOPAMIDOL-370 (76%);100ML BOTTLE 50 ML IV (12:36)
[2025-03-05 12:40] LABS: CATHL Activated Clotting Time 298 SEC (74-125)
--- NOTE | 2025-03-05 14:00 | EXP.DC.SUM ---
General Admission date:: 02/28/25 Discharge date: 03/05/25 HPI HPI HPI: Mr. Mckeon is a 79-year-old gentleman who is here for diagnostic EGD. The patient was admitted with chest pain. He has been cleared by cardiology. He also has had chronic anemia. He had some nausea, vomiting and hematemesis that resolved. He later had black stools. 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 The examination is deemed medically necessary for diagnostic EGD. The patient has been seen, interviewed and examined prior to the procedure by both myself and the anesthesia provider. Hospital Course Hospital Course Hospital Course: Riki Mckeon is a 79-year-old male with a medical history significant for HFrEF, NSTEMI/CAD s/p 6 stents May 2024, hypothyroidism, BPH who presents for worsening chest pain over the past several days. States that he has also had an episode of hematemesis and has had dark stools over the past week. Denies fever, cough, headache or shortness of breath. Reports being compliant with his medications. Was stopped on his aspirin recently by his PCP due to concern for possible bleeding and PUD. Workup in the ER concerning for GI bleed and unstable angina. Troponin elevated at 1.4. Discussed case with ER physician, request admission for further workup of possible GI bleed and stabilization clinically. I agreed to admit for further care. Patient was evaluated by GI and cardiology. Was taken for EGD. Punctate ulceration was addressed. Hemoglobin remained stable. Initial decision to discharge patient home with outpatient follow-up for heart cath in the coming week for his NSTEMI. Patient had a syncopal event prior to discharge. Was Through the weekend and cath on Wednesday prior to discharge. Found to have significant disease with in-stent restenosis. Stable to discharge home after PCI. Close follow-up with cardiology and GI as an outpatient. Problems addressed as follows: #Upper GI bleed #Chronic anemia ? On presentation, concern the patient was having melenic stools and occasional coffee-ground emesis. Aspirin had been stopped approximately a month before admission. Still on Plavix however. GI evaluated. Status post EGD on 03/01. Found to have punctate ulceration that was clipped. Continued pantoprazole 40 mg IV twice daily. Initially on misoprostol. After his syncopal event, misoprostol was stopped. Continued pantoprazole and sucralfate. Received 1 unit of packed red blood cells as his hemoglobin was below 9 in the setting of his ACS and anemia. Hemoglobin improved and remained above 9 for duration of admission. Due to iron deficiency, administered 2 doses of Venofer, 600 mg total. Would benefit from 2 additional 200 mg doses as an outpatient to complete full 1 g infusion. No further signs of bleeding after clipping. Continue pantoprazole 40 mg daily after he completes his sample of [place] (PCAB) provided by his PCP. # Acute on chronic HFrEF #CAD s/p 6 stents NSTEMI ? Continued Plavix during admission. Patient's troponins gradually elevated. Peaked at 6.26, trended down to 4 on morning of discharge. Was kept until able to perform heart cath due to patient being symptomatic. Did not have STEMI on EKGs. Cardiology assisted with care. Caution was used as decision made to proceed with heart cath due to kidney function being slightly above baseline with creatinine 2.0 and BUN 25-35. Blood pressure meds were held due to soft blood pressure. Continue holding carvedilol and valsartan at discharge. Treated intermittently with diuretics due to elevated BNP of 6100 on admission. Had negative fluid status during admission. Will continue Aldactone 25 mg daily and Farxiga 10 mg daily. Heart cath performed on day of discharge with following findings: Critical coronary disease. Successful stenting of a critically diseased circumflex artery critical disease reduced to 0% with 1 drug-eluting stent improving NEAL II flow to NEAL-3 flow. Successful stenting of tandem critically diseased right coronary artery disease with 2 noncontiguous stents improving NEAL II flow to NEAL-3 flow. Given fresh stents, will continue dual antiplatelet therapy for at least 1 month. Resume aspirin 81 mg daily and continue Plavix daily. Monitor closely for any black stools or hematemesis. #Hypothyroidism: Continue home levothyroxine 50 mcg. TSH marginally elevated at 5.4 #BPH: Significant chronic symptoms. Continue tamsulosin 0.8 mg nightly. Total time spent on discharge 42 minutes in counseling, documentation, chart review, and direct care with patient. Exam Data for Last 24 hours Vital signs and Labs for Last 24 Hours: Temp Pulse Resp BP Pulse Ox O2 Del Method O2 Flow Rate 98 F 57 L 17 117/52 L 99 Room Air 2 03/02/25 08:00 03/02/25 08:00 03/02/25 08:00 03/02/25 08:00 03/02/25 08:00 03/02/25 08:30 03/01/25 09:18 Laboratory Results - last 24 hr 03/02/25 07:07: WBC 10.9 H, RBC 3.13 L, Hgb 8.7 L, Hct 27.6 L, MCV 88.2, MCH 27.8, MCHC 31.5 L, RDW 15.7, Plt Count 395, MPV 9.1, Neut % (Auto) 70.1, Lymph % (Auto) 14.0, [place] % (Auto) 10.4 H, Eos % (Auto) 3.8, Baso % (Auto) 0.5, Neut # (Auto) 7.7, Lymph # (Auto) 1.5, [place] # (Auto) 1.1 H, Eos # (Auto) 0.4, Baso # (Auto) 0.1, Sodium 137, Potassium 4.8, Chloride 100, Carbon Dioxide 24, Anion Gap 17.8 H, BUN 25 H, Creatinine 2.00 H, Estimated Creat Clear 51, Estimated GFR 32 L, Est GFR ( Amer) 39 L, Glucose 101 H, Calcium 8.1 L, Total Bilirubin 0.4, AST 28, ALT 23, Alkaline Phosphatase 96, Total Protein 6.3, Albumin 3.5, Globulin 2.8, Albumin/Globulin Ratio 1.3 I & O for Last 24 hours: Intake & Output 02/27/25 02/28/25 03/01/25 03/02/25 23:59 23:59 23:59 23:59 Intake Total 305.6 / 545.6 840 / 960 120 / 120 Output Total 2200 / 2350 1350 / 1350 250 / 250 Balance -1894.4 / -1804.4 -510 / -390 -130 / -130 Weight 119.748 kg 116.346 kg 117.753 kg Constitutional Constitutional: no acute distress, morbidly obese, chronically ill appearing and cooperative *Routine HEENT Exam Head: Present normocephalic Eye: Present EOMI and PERRL ENT: Present mucous membranes moist Comments: poor dentition *Routine Neck Exam Neck: Present supple; Absent lymphadenopathy *Routine Respiratory Exam Respiratory: Present CTA bilaterally; Absent rhonchi, wheezes or crackles *Routine Cardiovascular Exam Cardiovascular: Present RRR *Routine Abdominal Exam Abdominal: Present soft and normoactive bowel sounds; Absent tenderness or distended *Routine Rectal Exam Patient deferred: visual exam *Routine Exam Patient deferred: penile exam *Routine Extremities Exam Extremities: Absent cyanosis, clubbing or edema *Routine Skin Exam Skin: Present intact, warm and rash Comments: stasis changes of legs, no weeping lesions however; scarring *Routine Neurological Exam Neurological: Present alert, oriented X3 and moving all extremities; Absent altered mental status Results Data Completed and Pending Labs on day of discharge: Labs from last 24 hours 03/02/25 07:07 WBC 10.9 H RBC 3.13 L Hgb 8.7 L Hct 27.6 L MCV 88.2 MCH 27.8 MCHC 31.5 L RDW 15.7 Plt Count 395 MPV 9.1 Neut % (Auto) 70.1 Lymph % (Auto) 14.0 [place] % (Auto) 10.4 H Eos % (Auto) 3.8 Baso % (Auto) 0.5 Neut # (Auto) 7.7 Lymph # (Auto) 1.5 [place] # (Auto) 1.1 H Eos # (Auto) 0.4 Baso # (Auto) 0.1 Sodium 137 Potassium 4.8 Chloride 100 Carbon Dioxide 24 Anion Gap 17.8 H BUN 25 H Creatinine 2.00 H Estimated Creat Clear 51 Estimated GFR 32 L Est GFR ( Amer) 39 L Glucose 101 H Calcium 8.1 L Total Bilirubin 0.4 AST 28 ALT 23 Alkaline Phosphatase 96 Total Protein 6.3 Albumin 3.5 Globulin 2.8 Albumin/Globulin Ratio 1.3 DS: Diagnosis Discharge Diagnosis (1) Chest pain: Status: Acute Code(s): R07.9 - Chest pain, unspecified (2) Anemia: Status: Acute Code(s): D64.9 - Anemia, unspecified (3) UGIB (upper gastrointestinal bleed): Status: Resolved Code(s): K92.2 - Gastrointestinal hemorrhage, unspecified (4) CAD (coronary artery disease): Status: Acute Code(s): I25.10 - Atherosclerotic heart disease of [place] coronary artery without angina pectoris Qualifiers: Associated angina: without angina Coronary Disease-Associated Artery/Lesion type: [place] artery [place] vs. transplanted heart: [place] heart Qualified Code(s): I25.10 - Atherosclerotic heart disease of [place] coronary artery without angina pectoris (5) HFrEF (heart failure with reduced ejection fraction): Status: Acute Code(s): I50.20 - Unspecified systolic (congestive) heart failure (6) Class 2 obesity: Status: Chronic Code(s): E66.812 - Obesity, class 2 (7) Hypertension: Status: Chronic Code(s): I10 - Essential (primary) hypertension Qualifiers: Hypertension type: unspecified Qualified Code(s): I10 - Essential (primary) hypertension (8) Complaint of melena: Status: Acute Code(s): K92.1 - Melena (9) Typical angina: Status: Acute Code(s): I20.9 - Angina pectoris, unspecified (10) GERD (gastroesophageal reflux disease): Status: Acute Code(s): K21.9 - Gastro-esophageal reflux disease without esophagitis Meds Home Medications and Allergies Home Medications ?Medication ?Instructions ?Recorded ?Confirmed ?Type tamsulosin 0.4 mg capsule 0.8 mg PO HS 04/04/18 03/01/25 History furosemide 20 mg tablet 20 mg PO MOWEFR 08/17/24 02/28/25 History valsartan 80 mg tablet 80 mg PO BID 09/04/24 02/28/25 History Held on 03/05/25. Instructions: due to soft BP, re-evaluate at follow-up with cardiology dapagliflozin propanediol 10 mg 10 mg PO DAILY #30 tabs 11/15/24 02/28/25 Rx tablet (Farxiga) carvedilol 12.5 mg tablet 12.5 mg PO BID #60 tabs 12/13/24 02/28/25 Rx Held on 03/05/25. Instructions: due to hypotension until follow-up with cardiology famotidine 40 mg tablet 40 mg PO HS 12/13/24 02/28/25 History nitroglycerin 0.4 mg sublingual 0.4 mg sublingual Q5M PRN chest 12/13/24 02/28/25 Rx tablet pain #25 tabs spironolactone 25 mg tablet 25 mg PO DAILY 12/13/24 02/28/25 History levothyroxine 50 mcg tablet 50 mcg PO DAILY 02/28/25 02/28/25 History atorvastatin 40 mg tablet 40 mg PO HS 30 days #30 tabs 03/02/25 Rx aspirin 81 mg tablet,delayed 81 mg PO DAILY 30 days #30 tabs 03/05/25 Rx release clopidogrel 75 mg tablet 75 mg PO DAILY #90 tabs 03/05/25 Rx pantoprazole 40 mg tablet,delayed 40 mg PO DAILY #30 tabs 03/05/25 Rx release New Prescriptions to Start Prescriptions: chad Marino,Luis atorvastatin Ned,Luis clopidogrel Ned,Luis pantoprazole Ned,Luis Allergies Allergy/AdvReac Type Severity Reaction Status Date / Time Antihistamines - Alkylamine Allergy Mild MADE SKIN Verified 01/15/25 14:51 (ANTIHISTAMINES - ALKYLAMINE) FEEL LIKE ON FIRE NSAIDS (Non-Steroidal AdvReac Severe kidney Verified 01/15/25 14:51 Anti-Inflamma failure Discharge Plan Disposition Patient Disposition: Home, Self-Care Condition: Fair Discharge Order Discharge Orders: Discharge Order (Routine); Ordered 03/05/25 Ordered By: Luis Marino Follow up Plan Follow up with: Laron Mello II, MD [Staff Physician, Gastroenterology] - Enter time for follow up Jeffrey Conway MD [Staff Physician] - 03/12/25 10:45 am Gasper Montana MD [Primary Care Provider, Internal Medicine] - 03/13/25 9:15 am Prescriptions/Medication Reconciliation: New atorvastatin 40 mg Tablet 40 mg PO HS 30 Days Qty: 30 0RF aspirin 81 mg Tablet,Delayed Release (Dr/Ec) 81 mg PO DAILY 30 Days Qty: 30 0RF pantoprazole 40 mg tablet,delayed release (DR/EC) 40 mg PO DAILY Qty: 30 0RF Continued furosemide 20 mg tablet 20 mg PO MOWE Patient Comments: TAKE ONE TABLET BY MOUTH ON MONDAYS, WEDNESDAY AND FRIDAYS dapagliflozin propanediol [Farxiga] 10 mg tablet 10 mg PO DAILY Qty: 30 5RF Rx Instructions: pt out of medication famotidine 40 mg tablet 40 mg PO HS spironolactone 25 mg tablet 25 mg PO DAILY nitroglycerin 0.4 mg tablet, sublingual 0.4 mg sublingual Q5M PRN (Reason: chest pain) Qty: 25 0RF Rx Instructions: do not exceed 3 doses per episode tamsulosin 0.4 MG capsule 0.8 mg PO HS levothyroxine 50 mcg tablet 50 mcg PO DAILY clopidogrel 75 mg tablet 75 mg PO DAILY Qty: 90 3RF Held carvedilol 12.5 mg tablet 12.5 mg PO BID Qty: 60 5RF Hold Instructions: due to hypotension until follow-up with cardiology Rx Instructions: must administer with a meal/food valsartan 80 mg Tablet 80 mg PO BID Hold Instructions: due to soft BP, re-evaluate at follow-up with cardiology Problem Reconciliation Problems Reviewed?: Yes Patient Discharge Instructions ACTIVITY: Continue current activity DIET: continue same diet and low fat, low cholesterol Patient Instructions: Anemia, DI for Gastrointestinal Bleeding, Stop Light Heart Failure Print Language: Malay Providers Primary Care Provider: Gasper Montana Admit Provider: Luis Marino Attending Provider: Luis Marino
--- NOTE | 2025-03-05 15:44 | PC.NURSE ---
pt was in surgery at this time
--- NOTE | 2025-03-05 15:53 | HMH.PHAINT1 ---
Pharmacy Intervention Comments: DISCHARGE COUNSELING WAS DONE. MEDS CHANGED AND NEW DISCHARGE MEDICATION LIST WAS GIVEN TO PATIENT STOPPING BOTH VALSARTAN AND CARVEDILOL.
--- NOTE | 2025-03-06 10:18 | SW/DCPLANNER ---
Addendum entered by Lanie Justice 03/06/25 15:07: Dr Marino asked to phone patient to let him know that patient's labs and urine has all improved. Beverly Pittman Original Note: Spoke with patient on the phone. Patient stated that he is doing okay. Patient stated that he is not aware of his upcoming appointments. I went over the patient's upcoming appointments. Patient stated that he was able to get his new medicine picked up from [place]. Patient stated that he has no concerns or questions at this time. Beverly Pittman
[2025-03-07 11:33] LABS: Interpretation Notes (.); Reference Notes (.)
== END 2025-03-05 16:50 | disposition home or self-care (01) | DRG 981 ==
LOC: ER 12:30 → ICU 12:43 → 2ND 16:19
PROVIDERS: Internal Medicine; Internal Medicine Gastroenterology; Nurse Practitioner Family; Admitting Provider Internal Medicine Adolescent Medicine; Emergency Provider Emergency Medicine; PCP Internal Medicine Adolescent Medicine; Visit Provider Internal Medicine Adolescent Medicine
PROC: 0DJ08ZZ Inspection of Upper Intestinal Tract, Via Natural or Artificial Opening Endoscopic (ICD-10-PCS; principal; 2025-03-01 15:30)
PROC: 4A023N7 Measurement of Cardiac Sampling and Pressure, Left Heart, Percutaneous Approach (ICD-10-PCS; CPT 93452; principal; 2025-03-05 10:45)
DX: K26.4 Chronic or unspecified duodenal ulcer with hemorrhage (principal); I21.4 Non-ST elevation (NSTEMI) myocardial infarction; I50.23 Acute on chronic systolic (congestive) heart failure; I13.0 Hypertensive heart and chronic kidney disease with heart failure and stage 1 through stage 4 chronic kidney disease, or unspecified chronic kidney disease; I25.10 Atherosclerotic heart disease of native coronary artery without angina pectoris; K44.9 Diaphragmatic hernia without obstruction or gangrene; D50.0 Iron deficiency anemia secondary to blood loss (chronic); E03.9 Hypothyroidism, unspecified; N40.0 Benign prostatic hyperplasia without lower urinary tract symptoms; N18.31 Chronic kidney disease, stage 3a; F17.210 Nicotine dependence, cigarettes, uncomplicated; E66.812 Obesity, class 2; I89.0 Lymphedema, not elsewhere classified; I95.9 Hypotension, unspecified; R55 Syncope and collapse; I25.2 Old myocardial infarction; Z95.5 Presence of coronary angioplasty implant and graft; Z79.02 Long term (current) use of antithrombotics/antiplatelets; Z79.890 Hormone replacement therapy; Z79.899 Other long term (current) drug therapy; Z88.8 Allergy status to other drugs, medicaments and biological substances; Z68.39 Body mass index [BMI] 39.0-39.9, adult
CPT/HCPCS: 36415; 36430; 71045; 80048; 80053; 80061; 82657; 82728; 83540; 83550; 83735; 83880; 84439; 84443; 84484; 85014; 85018; 85025; 85347; 85610; 86850; 93005; 93308; 97116; 97163; 97530; 99152; 99153; C1725; C1769; C1874; C2618; J1450; J1644; J1756; J1939; J2003; J2250; J2470; J2704; J3010; J3475; J7040; J7050; J7120; P9016; Q9957; Q9967

== ENCOUNTER 2025-03-06 08:43 | Outpatient (CLI) | payer MEDICARE, SELFPAY ==
[2025-03-06 10:00] LABS: Anion Gap 19.4 mEq/L (5-15); Blood Urea Nitrogen 30 mg/dl (9-20); Calcium 8.3 mg/dl (8.4-10.2); Carbon Dioxide 22 mmol/L (22.0-30.0); Chloride 104 mmol/L (98-107); Creatinine,Serum 1.90 mg/dl (0.66-1.25); Estimated Glomerular Filt Rate 34 ml/min (>60); GFR (African American) 42 ML/MIN (>60); Glucose 131 mg/dl (74-100); Potassium 4.4 mmoL/L (3.5-5.1); Sodium 141 mmol/L (136-145)
== END 2025-03-06 23:59 | disposition home or self-care (01) ==
LOC: LAB 08:44
PROVIDERS: PCP Internal Medicine Adolescent Medicine; Visit Provider Internal Medicine Adolescent Medicine
DX: N17.9 Acute kidney failure, unspecified (principal)
CPT/HCPCS: 36415; 80048

== ENCOUNTER 2025-03-09 09:20 | Inpatient (IN) | payer MEDICARE, SELFPAY ==
[2025-03-09] VITALS (38 sets, daily range): BP systolic 113–144; BP diastolic 58–85; PULSE 78–94; RESP 15–28; TEMP 36.5–36.9; O2SAT 97–100; BMI 40.1; BMI 39.4
--- NOTE | 2025-03-09 09:20 | PC.NURSE ---
Dr. Hunt at bedside
--- NOTE | 2025-03-09 09:37 | HMH.EDGENADL ---
Discharge Plan Disposition Patient Disposition: Xfer Other Condition: Serious Clinical Impressions Clinical Impression: Acute GI bleeding, Acute blood loss anemia, Melena Discharge ED Provider: Alberto Hunt General Adult HPI <Alberto Hunt DO - Last Filed: 03/09/25 16:13> General Chief complaint: GI Bleed Stated complaint: fall Time Seen by Provider: 03/09/25 09:24 History of Present Illness HPI narrative: This is a 79-year-old male patient, with past medical history of CAD status post PCI, HFrEF, CKD, peptic ulcer disease, and GI bleeding, who is presenting to the emergency department today for evaluation of a fall and GI bleed. The patient was most recently admitted to our hospital in the beginning of January with GI bleeding as well as a myocardial infarction. He was comanaged by the hospitalist service, gastroenterology, and cardiology. During this admission he underwent percutaneous coronary intervention and had a successful stent placed in a diseased circumflex artery. He was continued on dual antiplatelet therapy following this procedure and at the time of discharge. At the same time the patient also was having hematemesis and melena at the time of admission. This was managed by Dr. Mello with gastroenterology. He underwent EGD and was found to have a duodenal ulcer in the second portion of the duodenum and underwent APC ablation, forced coagulation, and Endo Clip placement with excellent hemostasis on 03/01/2025. Since discharge, the patient states that he has felt weak for the last couple of days and as of this morning he has been unable to walk independently, which is a change from his baseline. Upon attempting to walk he did fall but did not hit his head and did not lose consciousness. He then began having bloody diarrhea. EMS was called to the scene and found streaks of bloody diarrhea trapsed across the house. The patient denies fevers, chills, and abdominal pain. Related Data Home Medications ?Medication ?Instructions ?Recorded ?Confirmed tamsulosin 0.4 mg capsule 0.8 mg PO HS 04/04/18 03/09/25 furosemide 20 mg tablet 20 mg PO MOWEFR 08/17/24 03/09/25 valsartan 80 mg tablet 80 mg PO BID 09/04/24 03/09/25 Held on 03/05/25. Instructions: due to soft BP, re-evaluate at follow-up with cardiology famotidine 40 mg tablet 40 mg PO HS 12/13/24 03/09/25 spironolactone 25 mg tablet 25 mg PO DAILY 12/13/24 03/09/25 levothyroxine 50 mcg tablet 50 mcg PO DAILY 02/28/25 03/09/25 Previous Rx's ?Medication ?Instructions ?Recorded dapagliflozin propanediol 10 mg 10 mg PO DAILY #30 tabs 11/15/24 tablet (Farxiga) carvedilol 12.5 mg tablet 12.5 mg PO BID #60 tabs 12/13/24 Held on 03/05/25. Instructions: due to hypotension until follow-up with cardiology nitroglycerin 0.4 mg sublingual 0.4 mg sublingual Q5M PRN chest 12/13/24 tablet pain #25 tabs atorvastatin 40 mg tablet 40 mg PO HS 30 days #30 tabs 03/02/25 aspirin 81 mg tablet,delayed 81 mg PO DAILY 30 days #30 tabs 03/05/25 release clopidogrel 75 mg tablet 75 mg PO DAILY #90 tabs 03/05/25 pantoprazole 40 mg tablet,delayed 40 mg PO DAILY #30 tabs 03/05/25 release Allergies Allergy/AdvReac Type Severity Reaction Status Date / Time Antihistamines - Alkylamine Allergy Mild MADE SKIN Verified 01/15/25 14:51 (ANTIHISTAMINES - ALKYLAMINE) FEEL LIKE ON FIRE NSAIDS (Non-Steroidal AdvReac Severe kidney Verified 01/15/25 14:51 Anti-Inflamma failure [facility] <Alberto Hunt DO - Last Filed: 03/09/25 16:13> [facility] Disclaimer: The information contained in this section may have been updated after the patient was seen, as this information can be updated by other users. Medical History (Updated 03/09/25 @ 20:06 by Branden Allison APRN) Cardiovascular disease Bilateral lower leg cellulitis Lymphedema of both lower extremities Chronic acquired lymphedema UGIB (upper gastrointestinal bleed) PUD (peptic ulcer disease) Duodenitis Nausea and vomiting Nausea Encounter for laboratory testing for COVID-19 virus Diabetes mellitus Gastroenteritis and colitis, viral Dehydration PICC (peripherally inserted central catheter) in place Diabetic foot Multiple drug resistant organism (MDRO) culture positive Near syncope Cellulitis, leg Ingrowing Toenail Callus of foot Onychoincurvatum Onychodystrophy Pain around toenail, left foot Ingrowing Toenail Cellulitis of right leg Arthritis PAD (peripheral artery disease) HTN (hypertension), benign Heart murmur T2DM (type 2 diabetes mellitus) BPH (benign prostatic hyperplasia) Peripheral vascular disease Surgical History Hx of colonoscopy History of total left hip replacement Family History Other Cancer Heart attack Social History Smoking Status: Never smoker alcohol intake: never substance use type: denies use current occupational status: retired Travel in the last 8 weeks?: None household members: none housing: house current occupation: [employer] current occupational exposures/hazards: No caffeine: Yes Have you lived/traveled outside [place] in past 30 days?: No Contact w/someone who lives/traveled outside US past 30 days?: No Exposure to someone with infectious disease in past 14 days?: No Do you have a fever (greater than 100.4 F or 38 C)?: No Have you tested positive for COVID-19?: No Exposed to someone with COVID-19 in past 14 days?: No Do you have a sore throat?: No Do you have a cough?: No Do you have any weakness?: No Do you have any diarrhea?: No Are you experiencing any unusual bleeding?: No Do you have any muscle aches/pain?: No Do you have any abdominal pain?: No Are you experiencing loss of taste or smell?: No Other Medical History Have you received the Flu Vaccine for this season: No Have you received the Pneumonia Vaccine: No <Alberto Hunt DO - Last Filed: 03/09/25 16:13> ROS Obtained: Yes Systems reviewed as appropriate & no additional complaints except as documented Physical Exam <Alberto Hunt DO - Last Filed: 03/09/25 16:13> General General appearance: alert and in no apparent distress Head Head exam: atraumatic and normocephalic Eye Eye exam: Present PERRL and EOMI ENT ENT exam: Present normal oropharynx and mucous membranes moist Neck Neck exam: Present full ROM and trachea midline Respiratory Respiratory exam: Present normal lung sounds bilaterally; Absent respiratory distress Cardiovascular Cardiovascular exam: Present regular rate and normal rhythm Abdominal Exam Abdominal exam: Present soft; Absent tenderness Extremities Exam Extremities exam: Present normal inspection; Absent tenderness Back Exam Back exam: Absent vertebral tenderness Neurological Exam Neurological exam: Present alert and oriented X3 Skin Skin exam: Present warm and dry Medical Decision Making <Alberto Hunt - Last Filed: 03/09/25 16:13> Medical Records Medical records reviewed: Yes I reviewed the patient's medical records. Screening: Per USPSTF and CDC recommendations, given the prevalence of disease in our region, it is our hospital?s policy to screen for HIV and viral Hepatitis for all patients aged 18 and over and those with ongoing risk factors. Real Inquiry Pt receiving controlled substance: No Real was queried for this patient: No Vital Signs: 03/09/25 09:38 03/09/25 10:11 03/09/25 10:30 Temperature 97.7 F Temperature Source Oral Pulse Rate 91 H 90 Pulse Rate [Right Radial] 87 Respiratory Rate 16 21 22 TAR Vitals Timing Blood Pressure 122/63 136/66 Blood Pressure [Left Arm] 139/73 Blood Pressure Mean 74 79 Blood Pressure Mean [Left Arm] 95 Blood Pressure Source Blood Pressure Source [Left Arm] Automatic Cuff Blood Pressure Position Blood Pressure Position [Left Arm] Supine 02 Sat by Pulse Oximetry 99 98 98 Oxygen Delivery Method Room Air 03/09/25 11:00 03/09/25 11:30 03/09/25 12:00 Temperature Temperature Source Pulse Rate 89 92 H 88 Pulse Rate [Right Radial] Respiratory Rate TAR Vitals Timing Blood Pressure 136/85 113/58 L 117/66 Blood Pressure [Left Arm] Blood Pressure Mean 95 76 86 Blood Pressure Mean [Left Arm] Blood Pressure Source Blood Pressure Source [Left Arm] Blood Pressure Position Blood Pressure Position [Left Arm] 02 Sat by Pulse Oximetry 100 100 99 Oxygen Delivery Method 03/09/25 12:30 03/09/25 13:00 03/09/25 13:20 Temperature 98.1 F Temperature Source Oral Pulse Rate 94 H 81 89 Pulse Rate [Right Radial] Respiratory Rate 22 26 H 16 TAR Vitals Timing Pre-Blood Vitals Blood Pressure 121/61 136/58 L 134/68 Blood Pressure [Left Arm] Blood Pressure Mean 90 Blood Pressure Mean [Left Arm] Blood Pressure Source Blood Pressure Source [Left Arm] Blood Pressure Position Supine Blood Pressure Position [Left Arm] 02 Sat by Pulse Oximetry 100 100 98 Oxygen Delivery Method Room Air Room Air 03/09/25 13:22 03/09/25 13:30 03/09/25 13:30 Temperature 98.1 F Temperature Source Temporal Artery Scan Pulse Rate 90 89 92 H Pulse Rate [Right Radial] Respiratory Rate 24 16 21 TAR Vitals Timing Start Vitals Blood Pressure 134/68 131/62 131/62 Blood Pressure [Left Arm] Blood Pressure Mean 77 85 85 Blood Pressure Mean [Left Arm] Blood Pressure Source Automatic Cuff Blood Pressure Source [Left Arm] Blood Pressure Position Supine Blood Pressure Position [Left Arm] 02 Sat by Pulse Oximetry 100 100 99 Oxygen Delivery Method 03/09/25 13:35 03/09/25 13:40 03/09/25 13:40 Temperature 98 F 98.5 F Temperature Source Temporal Artery Scan Temporal Artery Scan Pulse Rate 88 92 H 93 H Pulse Rate [Right Radial] Respiratory Rate 18 18 24 TAR Vitals Timing 5 Minute 10 Minute Blood Pressure 138/71 131/64 131/64 Blood Pressure [Left Arm] Blood Pressure Mean 93 86 73 Blood Pressure Mean [Left Arm] Blood Pressure Source Automatic Cuff Blood Pressure Source [Left Arm] Blood Pressure Position Supine Supine Blood Pressure Position [Left Arm] 02 Sat by Pulse Oximetry 99 100 100 Oxygen Delivery Method 03/09/25 13:45 03/09/25 13:45 03/09/25 14:00 Temperature 98.5 F 98.4 F Temperature Source Temporal Artery Scan Temporal Artery Scan Pulse Rate 91 H 89 85 Pulse Rate [Right Radial] Respiratory Rate 20 17 20 TAR Vitals Timing 15 Minute 30 Minute Blood Pressure 137/64 137/64 130/72 Blood Pressure [Left Arm] Blood Pressure Mean 88 91 Blood Pressure Mean [Left Arm] Blood Pressure Source Automatic Cuff Automatic Cuff Blood Pressure Source [Left Arm] Blood Pressure Position Supine Supine Blood Pressure Position [Left Arm] 02 Sat by Pulse Oximetry 100 100 99 Oxygen Delivery Method Room Air 03/09/25 14:00 03/09/25 14:15 03/09/25 14:15 Temperature 98.4 F Temperature Source Temporal Artery Scan Pulse Rate 88 85 88 Pulse Rate [Right Radial] Respiratory Rate 25 H 20 TAR Vitals Timing 45 Minute Blood Pressure 130/72 135/68 135/68 Blood Pressure [Left Arm] Blood Pressure Mean 90 90 Blood Pressure Mean [Left Arm] Blood Pressure Source Automatic Cuff Blood Pressure Source [Left Arm] Blood Pressure Position Supine Blood Pressure Position [Left Arm] 02 Sat by Pulse Oximetry 99 99 100 Oxygen Delivery Method 03/09/25 14:30 03/09/25 14:30 03/09/25 14:45 Temperature 98.2 F Temperature Source Temporal Artery Scan Pulse Rate 82 83 80 Pulse Rate [Right Radial] Respiratory Rate 18 21 19 TAR Vitals Timing 60 Minute Blood Pressure 127/67 127/67 125/67 Blood Pressure [Left Arm] Blood Pressure Mean 87 87 86 Blood Pressure Mean [Left Arm] Blood Pressure Source Automatic Cuff Blood Pressure Source [Left Arm] Blood Pressure Position Supine Blood Pressure Position [Left Arm] 02 Sat by Pulse Oximetry 100 100 98 Oxygen Delivery Method 03/09/25 15:00 03/09/25 15:15 03/09/25 15:30 Temperature Temperature Source Pulse Rate 83 78 83 Pulse Rate [Right Radial] Respiratory Rate 28 H 26 H 24 TAR Vitals Timing Blood Pressure 131/63 123/68 135/65 Blood Pressure [Left Arm] Blood Pressure Mean Blood Pressure Mean [Left Arm] Blood Pressure Source Blood Pressure Source [Left Arm] Blood Pressure Position Blood Pressure Position [Left Arm] 02 Sat by Pulse Oximetry 100 99 100 Oxygen Delivery Method Room Air Room Air 03/09/25 15:45 03/09/25 16:01 03/09/25 16:05 Temperature 98.3 F Temperature Source Temporal Artery Scan Pulse Rate 81 83 86 Pulse Rate [Right Radial] Respiratory Rate 25 H 20 18 TAR Vitals Timing 1 Hour Post Infusion Blood Pressure 133/66 128/73 137/77 Blood Pressure [Left Arm] Blood Pressure Mean 97 Blood Pressure Mean [Left Arm] Blood Pressure Source Automatic Cuff Blood Pressure Source [Left Arm] Blood Pressure Position Supine Blood Pressure Position [Left Arm] 02 Sat by Pulse Oximetry 97 100 99 Oxygen Delivery Method Room Air Room Air 03/09/25 16:05 03/09/25 16:15 03/09/25 16:30 Temperature Temperature Source Pulse Rate 91 H 82 Pulse Rate [Right Radial] Respiratory Rate 27 H 25 H TAR Vitals Timing Blood Pressure 137/77 142/70 H 131/70 Blood Pressure [Left Arm] Blood Pressure Mean 90 Blood Pressure Mean [Left Arm] Blood Pressure Source Blood Pressure Source [Left Arm] Blood Pressure Position Blood Pressure Position [Left Arm] 02 Sat by Pulse Oximetry 99 100 Oxygen Delivery Method Room Air Room Air 03/09/25 16:45 03/09/25 17:01 03/09/25 17:15 Temperature Temperature Source Pulse Rate 83 88 85 Pulse Rate [Right Radial] Respiratory Rate 19 19 27 H TAR Vitals Timing Blood Pressure 144/69 H 144/61 H 138/69 Blood Pressure [Left Arm] Blood Pressure Mean Blood Pressure Mean [Left Arm] Blood Pressure Source Blood Pressure Source [Left Arm] Blood Pressure Position Blood Pressure Position [Left Arm] 02 Sat by Pulse Oximetry 100 99 99 Oxygen Delivery Method 03/09/25 17:30 03/09/25 17:45 03/09/25 18:15 Temperature Temperature Source Pulse Rate 83 87 Pulse Rate [Right Radial] Respiratory Rate 25 H 21 TAR Vitals Timing Blood Pressure 135/65 120/61 136/71 Blood Pressure [Left Arm] Blood Pressure Mean 80 Blood Pressure Mean [Left Arm] Blood Pressure Source Blood Pressure Source [Left Arm] Blood Pressure Position Blood Pressure Position [Left Arm] 02 Sat by Pulse Oximetry 100 100 Oxygen Delivery Method 03/09/25 18:16 03/09/25 18:30 03/09/25 18:45 Temperature Temperature Source Pulse Rate 78 89 Pulse Rate [Right Radial] Respiratory Rate 15 25 H TAR Vitals Timing Blood Pressure 142/66 H 120/65 138/62 Blood Pressure [Left Arm] Blood Pressure Mean 91 Blood Pressure Mean [Left Arm] Blood Pressure Source Blood Pressure Source [Left Arm] Blood Pressure Position Blood Pressure Position [Left Arm] 02 Sat by Pulse Oximetry 100 100 Oxygen Delivery Method 03/09/25 19:15 03/09/25 19:49 Temperature 97.7 F Temperature Source Oral Pulse Rate 92 H 92 H Pulse Rate [Right Radial] Respiratory Rate 21 21 TAR Vitals Timing Blood Pressure 139/65 139/65 Blood Pressure [Left Arm] Blood Pressure Mean Blood Pressure Mean [Left Arm] Blood Pressure Source Blood Pressure Source [Left Arm] Blood Pressure Position Sitting Blood Pressure Position [Left Arm] 02 Sat by Pulse Oximetry 100 Oxygen Delivery Method Room Air Lab Data Lab Results 03/09/25 09:38: WBC 14.7 H, RBC 2.66 L, Hgb 7.7 L, Hct 24.1 L, MCV 90.6, MCH 28.9, MCHC 32.0, RDW 16.1, Plt Count 428 H, MPV 9.0, Neut % (Auto) 78.2, Lymph % (Auto) 13.2, [place] % (Auto) 5.9, Eos % (Auto) 0.7, Baso % (Auto) 0.4, Neut # (Auto) 11.5 H, Lymph # (Auto) 1.9, [place] # (Auto) 0.9, Eos # (Auto) 0.1, Baso # (Auto) 0.1, PT 12.3, INR 1.12 H, APTT 23.9, Sodium 140, Potassium 4.4, Chloride 106, Carbon Dioxide 23, Anion Gap 15.4 H, BUN 34 H, Creatinine 1.50 H, Estimated Creat Clear 69, Estimated GFR 45 L, Est GFR ( Amer) 55 L, Glucose 133 H, Calcium 8.2 L, Total Bilirubin 0.4, AST 22, ALT 16, Alkaline Phosphatase 76, Total Creatine Kinase 55, Troponin I 0.49 H, Total Protein 6.4, Albumin 3.6, Globulin 2.8, Albumin/Globulin Ratio 1.3, Lipase 44, Blood Type A Positive, Antibody Screen Negative, Crossmatch (AHG) See Detail 03/09/25 11:40: Hgb 6.8 L*, Hct 21.6 L 03/09/25 13:48: Troponin I 0.36 H 03/09/25 16:05: Hgb 7.4 L, Hct 24.0 L 03/09/25 16:05 03/09/25 09:38 Orders (Tests/Meds): ED MEDICATIONS Generic Name Dose Route Start Last Admin Trade Name Freq PRN Reason Stop Dose Admin Acetaminophen 650 mg 03/09/25 19:21 Acetaminophen 325mg Tab PO 04/08/25 19:20 Q4HP PRN Fever or Mild Pain (1-3) Carvedilol 12.5 mg 03/09/25 21:00 03/09/25 20:50 Carvedilol 12.5mg Tablet PO 04/08/25 20:59 12.5 mg BID TAWNYA Administration Dapagliflozin 10 mg 03/10/25 09:00 Dapagliflozin Propanediol 10 Mg Tablet PO 04/09/25 08:59 DAILY TAWNYA Famotidine 20 mg 03/09/25 21:00 03/09/25 20:51 Famotidine 20mg/2ml Vial IV 04/08/25 20:59 20 mg BID TAWNYA Administration Sodium Chloride 250 mls @ 25 mls/hr 03/09/25 12:00 03/09/25 21:02 Sod Chlor 0.9% 250ml Bag IV 03/10/25 11:59 Not Given .Q10H TAWNYA Sodium Chloride 250 mls @ 25 mls/hr 03/09/25 19:15 03/09/25 20:51 Sod Chlor 0.9% 250ml Bag IV 03/10/25 19:14 25 mls/hr .Q10H TAWNYA Administration Levothyroxine Sodium 50 mcg 03/10/25 09:00 Levothyroxine 50mcg (0.05mg) Tab PO 04/09/25 08:59 DAILY TAWNYA Misoprostol 200 mcg 03/09/25 18:00 03/09/25 18:20 Misoprostol 200 Mcg Tablet PO 04/08/25 17:59 Not Given Q6H TAWNYA Nitroglycerin 0.4 mg 03/09/25 19:35 Nitroglycerin 0.4mg Sl Tablet SL 04/08/25 19:34 Q5M PRN Chest Pain Non-Formulary Medication 80 mg 03/09/25 21:00 03/09/25 21:02 Valsartan PO 04/08/25 20:59 Not Given BID TAWNYA Ondansetron HCl 4 mg 03/09/25 19:21 Ondansetron 4mg/2ml Vial IV 04/08/25 19:20 Q8HP PRN Nausea Pantoprazole Sodium 40 mg 03/09/25 21:00 03/09/25 20:51 Pantoprazole 40mg Vial IV 04/08/25 20:59 40 mg BID TAWNYA Administration Sodium Chloride 8 ml 03/09/25 19:21 Sodium Chloride 0.9% 10ml Vial IV 04/08/25 19:20 NEEDED PRN dilute pepcid Spironolactone 25 mg 03/10/25 09:00 Spironolactone 25mg Tablet PO 04/09/25 08:59 DAILY TAWNYA Tamsulosin HCl 0.8 mg 03/09/25 21:00 03/09/25 20:51 Tamsulosin 0.4mg Capsule PO 04/08/25 20:59 0.8 mg HS TAWNYA Administration Discontinued Medications Generic Name Dose Route Start Last Admin Trade Name Freq PRN Reason Stop Dose Admin Pantoprazole Sodium 80 mg/ 100 mls @ 100 mls/hr 03/09/25 09:38 03/09/25 09:51 Sodium Chloride IV 03/09/25 10:37 100 mls/hr ONCE ONE Administration ORDERS Category Date Time Status PRBC [Red Blood Cells] Stat BBK 03/09/25 09:38 Results Type and Screen Stat BBK 03/09/25 09:[address] head/brain wo con Stat Cat Scan 03/09/25 09:41 Completed Pelvis XR 1-2 views [XR pelvis 1-2V] Stat Exams 03/09/25 09:41 Completed Portable CXR [XR chest portable] Stat Exams 03/09/25 09:41 Completed Activated Partial Thrombo Time Stat Lab 03/09/25 09:38 Completed CBC w/Auto Diff [Complete Blood Count Auto Diff] Stat Lab 03/09/25 09:38 Completed CK [Creatine Kinase] Stat Lab 03/09/25 09:38 Completed CMP [Comprehensive Metabolic Panel] Stat Lab 03/09/25 09:38 Completed Complete Blood Count Auto Diff AMLAB Lab 03/10/25 06:00 Ordered Comprehensive Metabolic Panel AMLAB Lab 03/10/25 06:00 Ordered H/H Post-Transfn [Hemoglobin & Hematocrit, Post] Timed Lab 03/09/25 16:05 Completed Hemoglobin and Hematocrit Stat Lab 03/09/25 11:40 Completed Lipase Stat Lab 03/09/25 09:38 Completed Magnesium AMLAB Lab 03/10/25 06:00 Ordered PT INR [Prothrombin Time INR] Stat Lab 03/09/25 09:38 Completed Troponin I Q3H Lab 03/09/25 13:48 Completed Troponin I Stat Lab 03/09/25 09:38 Completed ECG Data Tracing #1: I reviewed this ECG and interpreted as documented below: EKG personally interpreted by me demonstrates normal sinus rhythm with a rate of 89 bpm, left axis, no WA prolongation, narrow QRS, no QTc prolongation. No ST elevation or depression. No overt signs of ischemia or arrythmia. Medical Decision Narrative: In summary, this is a 79-year-old male patient who is very comorbid with a past medical history of hypertension, CAD status post multivessel percutaneous coronary intervention, HFrEF, and peptic ulcer disease with recurrent gastrointestinal bleeding, who is presenting to the emergency department today for evaluation of GI bleeding with melanotic stools. The patient was admitted to our hospital last week for concomitant non-ST elevation myocardial infarction with a troponin of 6 as well as blood loss anemia with melenic stools. He underwent APC ablation of angiodysplasia as well as Endo-coil placement of an ulcer in the second portion duodenum. A couple of days later the patient underwent percutaneous coronary intervention and had 3 drug-eluting stents placed for in-stent stenosis of his circumflex artery. He was discharged home on dual antiplatelet therapy and now re-presents to the hospital today with weakness in the setting of a significant amount of melanotic stools at home this morning. On initial evaluation of the patient he was sitting upright in no acute distress and was nontoxic in appearance. He is hemodynamically stable, saturating well on room air, and is neurologically intact. The patient's groin and lower extremities are covered with a mixture of hematochezia and melena. On examination the patient is pale appearing and he has conjunctival pallor. He does not have any abdominal tenderness to palpation and no evidence of peritonitis. On secondary survey from a traumatic standpoint, the patient does not have any scalp lacerations, hematomas, or abrasions. No midface instability or jaw malocclusion. No nasal septal hematoma. No intraoral lacerations or lesions. No cervical spine tenderness. He does have mild tenderness over the right lateral rib cage. His pelvis is stable. He does not have any deformities of his extremities. At this time differential diagnosis includes upper GI bleeding, peptic ulcer disease, lower GI bleeding, intracranial hemorrhage, skull fractures, pneumothorax, rib fractures, pelvic fractures, among others. Given the patient's benign abdominal exam I have low suspicion for a perforated gastric ulcer at this time. In addition, I have a low suspicion for acute arterial bleeding given that he is hemodynamically stable and is not tachycardic. Despite stating that he has not hit his head, I do feel like the prudent thing is to obtain a CT scan of the head without contrast given that he is on dual antiplatelet therapy and suffered a fall. Workup will also be initiated with hematologic labs including a type and screen, as well as with further traumatic screening with a pelvis and chest x-ray. Initial interventions included 80 mg of IV Protonix. Labs personally interpreted by me demonstrate a hemoglobin of 7.7 and a hematocrit of 24 indicative of anemia. Coags are normal.patient's troponins on 03 05 were 4, today they are 0.49 and 0.36 suggestive against acute myocardial ischemia. After a period of time we did repeat a hemoglobin and his hemoglobin dropped from 7.7->6.8, so we have also transfused the patient with 1 unit of packed red blood cells. Throughout the patient's stay in the emergency department he was high risk for decompensation given his active bleeding and necessity for blood transfusion. He was monitored with serial blood pressure monitoring and continuous telemetry and oximetry. Fortunately thus far he has remained hemodynamically stable but his condition is guarded. Today our interventional missionary coordinator is not on-call. I did reach out to the general surgery service for intervention, however they feel that he needs an advanced missionary coordinator to be able to perform this procedure. In addition to this, our general surgeon states that he does not feel comfortable operating on the patient here as we do not have cardiac anesthesia available and he had a myocardial infarction. I have reached out to both the [facility] as well as [facility] in [place] and both of these centers are on diversion and are unable to accept the patient for transfer. At the time of shift change we were pending a repeat hemoglobin after transfusion. We were also pending transfer center callback for an accepting facility to manage this patient. This patient was handed off to Dr. Hamilton who will follow-up on this and disposition the patient appropriately. <Juan Luis Hamilton MD - Last Filed: 03/09/25 21:13> Vital Signs: 03/09/25 09:38 03/09/25 10:11 03/09/25 10:30 Temperature 97.7 F Temperature Source Oral Pulse Rate 91 H 90 Pulse Rate [Right Radial] 87 Respiratory Rate 16 21 22 TAR Vitals Timing Blood Pressure 122/63 136/66 Blood Pressure [Left Arm] 139/73 Blood Pressure Mean 74 79 Blood Pressure Mean [Left Arm] 95 Blood Pressure Source Blood Pressure Source [Left Arm] Automatic Cuff Blood Pressure Position Blood Pressure Position [Left Arm] Supine 02 Sat by Pulse Oximetry 99 98 98 Oxygen Delivery Method Room Air 03/09/25 11:00 03/09/25 11:30 03/09/25 12:00 Temperature Temperature Source Pulse Rate 89 92 H 88 Pulse Rate [Right Radial] Respiratory Rate TAR Vitals Timing Blood Pressure 136/85 113/58 L 117/66 Blood Pressure [Left Arm] Blood Pressure Mean 95 76 86 Blood Pressure Mean [Left Arm] Blood Pressure Source Blood Pressure Source [Left Arm] Blood Pressure Position Blood Pressure Position [Left Arm] 02 Sat by Pulse Oximetry 100 100 99 Oxygen Delivery Method 03/09/25 12:30 03/09/25 13:00 03/09/25 13:20 Temperature 98.1 F Temperature Source Oral Pulse Rate 94 H 81 89 Pulse Rate [Right Radial] Respiratory Rate 22 26 H 16 TAR Vitals Timing Pre-Blood Vitals Blood Pressure 121/61 136/58 L 134/68 Blood Pressure [Left Arm] Blood Pressure Mean 90 Blood Pressure Mean [Left Arm] Blood Pressure Source Blood Pressure Source [Left Arm] Blood Pressure Position Supine Blood Pressure Position [Left Arm] 02 Sat by Pulse Oximetry 100 100 98 Oxygen Delivery Method Room Air Room Air 03/09/25 13:22 03/09/25 13:30 03/09/25 13:30 Temperature 98.1 F Temperature Source Temporal Artery Scan Pulse Rate 90 89 92 H Pulse Rate [Right Radial] Respiratory Rate 24 16 21 TAR Vitals Timing Start Vitals Blood Pressure 134/68 131/62 131/62 Blood Pressure [Left Arm] Blood Pressure Mean 77 85 85 Blood Pressure Mean [Left Arm] Blood Pressure Source Automatic Cuff Blood Pressure Source [Left Arm] Blood Pressure Position Supine Blood Pressure Position [Left Arm] 02 Sat by Pulse Oximetry 100 100 99 Oxygen Delivery Method 03/09/25 13:35 03/09/25 13:40 03/09/25 13:40 Temperature 98 F 98.5 F Temperature Source Temporal Artery Scan Temporal Artery Scan Pulse Rate 88 92 H 93 H Pulse Rate [Right Radial] Respiratory Rate 18 18 24 TAR Vitals Timing 5 Minute 10 Minute Blood Pressure 138/71 131/64 131/64 Blood Pressure [Left Arm] Blood Pressure Mean 93 86 73 Blood Pressure Mean [Left Arm] Blood Pressure Source Automatic Cuff Blood Pressure Source [Left Arm] Blood Pressure Position Supine Supine Blood Pressure Position [Left Arm] 02 Sat by Pulse Oximetry 99 100 100 Oxygen Delivery Method 03/09/25 13:45 03/09/25 13:45 03/09/25 14:00 Temperature 98.5 F 98.4 F Temperature Source Temporal Artery Scan Temporal Artery Scan Pulse Rate 91 H 89 85 Pulse Rate [Right Radial] Respiratory Rate 20 17 20 TAR Vitals Timing 15 Minute 30 Minute Blood Pressure 137/64 137/64 130/72 Blood Pressure [Left Arm] Blood Pressure Mean 88 91 Blood Pressure Mean [Left Arm] Blood Pressure Source Automatic Cuff Automatic Cuff Blood Pressure Source [Left Arm] Blood Pressure Position Supine Supine Blood Pressure Position [Left Arm] 02 Sat by Pulse Oximetry 100 100 99 Oxygen Delivery Method Room Air 03/09/25 14:00 03/09/25 14:15 03/09/25 14:15 Temperature 98.4 F Temperature Source Temporal Artery Scan Pulse Rate 88 85 88 Pulse Rate [Right Radial] Respiratory Rate 25 H 20 TAR Vitals Timing 45 Minute Blood Pressure 130/72 135/68 135/68 Blood Pressure [Left Arm] Blood Pressure Mean 90 90 Blood Pressure Mean [Left Arm] Blood Pressure Source Automatic Cuff Blood Pressure Source [Left Arm] Blood Pressure Position Supine Blood Pressure Position [Left Arm] 02 Sat by Pulse Oximetry 99 99 100 Oxygen Delivery Method 03/09/25 14:30 03/09/25 14:30 03/09/25 14:45 Temperature 98.2 F Temperature Source Temporal Artery Scan Pulse Rate 82 83 80 Pulse Rate [Right Radial] Respiratory Rate 18 21 19 TAR Vitals Timing 60 Minute Blood Pressure 127/67 127/67 125/67 Blood Pressure [Left Arm] Blood Pressure Mean 87 87 86 Blood Pressure Mean [Left Arm] Blood Pressure Source Automatic Cuff Blood Pressure Source [Left Arm] Blood Pressure Position Supine Blood Pressure Position [Left Arm] 02 Sat by Pulse Oximetry 100 100 98 Oxygen Delivery Method 03/09/25 15:00 03/09/25 15:15 03/09/25 15:30 Temperature Temperature Source Pulse Rate 83 78 83 Pulse Rate [Right Radial] Respiratory Rate 28 H 26 H 24 TAR Vitals Timing Blood Pressure 131/63 123/68 135/65 Blood Pressure [Left Arm] Blood Pressure Mean Blood Pressure Mean [Left Arm] Blood Pressure Source Blood Pressure Source [Left Arm] Blood Pressure Position Blood Pressure Position [Left Arm] 02 Sat by Pulse Oximetry 100 99 100 Oxygen Delivery Method Room Air Room Air 03/09/25 15:45 03/09/25 16:01 03/09/25 16:05 Temperature 98.3 F Temperature Source Temporal Artery Scan Pulse Rate 81 83 86 Pulse Rate [Right Radial] Respiratory Rate 25 H 20 18 TAR Vitals Timing 1 Hour Post Infusion Blood Pressure 133/66 128/73 137/77 Blood Pressure [Left Arm] Blood Pressure Mean 97 Blood Pressure Mean [Left Arm] Blood Pressure Source Automatic Cuff Blood Pressure Source [Left Arm] Blood Pressure Position Supine Blood Pressure Position [Left Arm] 02 Sat by Pulse Oximetry 97 100 99 Oxygen Delivery Method Room Air Room Air 03/09/25 16:05 03/09/25 16:15 03/09/25 16:30 Temperature Temperature Source Pulse Rate 91 H 82 Pulse Rate [Right Radial] Respiratory Rate 27 H 25 H TAR Vitals Timing Blood Pressure 137/77 142/70 H 131/70 Blood Pressure [Left Arm] Blood Pressure Mean 90 Blood Pressure Mean [Left Arm] Blood Pressure Source Blood Pressure Source [Left Arm] Blood Pressure Position Blood Pressure Position [Left Arm] 02 Sat by Pulse Oximetry 99 100 Oxygen Delivery Method Room Air Room Air 03/09/25 16:45 03/09/25 17:01 03/09/25 17:15 Temperature Temperature Source Pulse Rate 83 88 85 Pulse Rate [Right Radial] Respiratory Rate 19 19 27 H TAR Vitals Timing Blood Pressure 144/69 H 144/61 H 138/69 Blood Pressure [Left Arm] Blood Pressure Mean Blood Pressure Mean [Left Arm] Blood Pressure Source Blood Pressure Source [Left Arm] Blood Pressure Position Blood Pressure Position [Left Arm] 02 Sat by Pulse Oximetry 100 99 99 Oxygen Delivery Method 03/09/25 17:30 03/09/25 17:45 03/09/25 18:15 Temperature Temperature Source Pulse Rate 83 87 Pulse Rate [Right Radial] Respiratory Rate 25 H 21 TAR Vitals Timing Blood Pressure 135/65 120/61 136/71 Blood Pressure [Left Arm] Blood Pressure Mean 80 Blood Pressure Mean [Left Arm] Blood Pressure Source Blood Pressure Source [Left Arm] Blood Pressure Position Blood Pressure Position [Left Arm] 02 Sat by Pulse Oximetry 100 100 Oxygen Delivery Method 03/09/25 18:16 03/09/25 18:30 03/09/25 18:45 Temperature Temperature Source Pulse Rate 78 89 Pulse Rate [Right Radial] Respiratory Rate 15 25 H TAR Vitals Timing Blood Pressure 142/66 H 120/65 138/62 Blood Pressure [Left Arm] Blood Pressure Mean 91 Blood Pressure Mean [Left Arm] Blood Pressure Source Blood Pressure Source [Left Arm] Blood Pressure Position Blood Pressure Position [Left Arm] 02 Sat by Pulse Oximetry 100 100 Oxygen Delivery Method 03/09/25 19:15 03/09/25 19:49 Temperature 97.7 F Temperature Source Oral Pulse Rate 92 H 92 H Pulse Rate [Right Radial] Respiratory Rate 21 21 TAR Vitals Timing Blood Pressure 139/65 139/65 Blood Pressure [Left Arm] Blood Pressure Mean Blood Pressure Mean [Left Arm] Blood Pressure Source Blood Pressure Source [Left Arm] Blood Pressure Position Sitting Blood Pressure Position [Left Arm] 02 Sat by Pulse Oximetry 100 Oxygen Delivery Method Room Air Lab Data Lab Results 03/09/25 09:38: WBC 14.7 H, RBC 2.66 L, Hgb 7.7 L, Hct 24.1 L, MCV 90.6, MCH 28.9, MCHC 32.0, RDW 16.1, Plt Count 428 H, MPV 9.0, Neut % (Auto) 78.2, Lymph % (Auto) 13.2, [place] % (Auto) 5.9, Eos % (Auto) 0.7, Baso % (Auto) 0.4, Neut # (Auto) 11.5 H, Lymph # (Auto) 1.9, [place] # (Auto) 0.9, Eos # (Auto) 0.1, Baso # (Auto) 0.1, PT 12.3, INR 1.12 H, APTT 23.9, Sodium 140, Potassium 4.4, Chloride 106, Carbon Dioxide 23, Anion Gap 15.4 H, BUN 34 H, Creatinine 1.50 H, Estimated Creat Clear 69, Estimated GFR 45 L, Est GFR ( Amer) 55 L, Glucose 133 H, Calcium 8.2 L, Total Bilirubin 0.4, AST 22, ALT 16, Alkaline Phosphatase 76, Total Creatine Kinase 55, Troponin I 0.49 H, Total Protein 6.4, Albumin 3.6, Globulin 2.8, Albumin/Globulin Ratio 1.3, Lipase 44, Blood Type A Positive, Antibody Screen Negative, Crossmatch ([facility]) See Detail 03/09/25 11:40: Hgb 6.8 L*, Hct 21.6 L 03/09/25 13:48: Troponin I 0.36 H 03/09/25 16:05: Hgb 7.4 L, Hct 24.0 L Orders (Tests/Meds): ED MEDICATIONS Generic Name Dose Route Start Last Admin Trade Name Freq PRN Reason Stop Dose Admin Acetaminophen 650 mg 03/09/25 19:21 Acetaminophen 325mg Tab PO 04/08/25 19:20 Q4HP PRN Fever or Mild Pain (1-3) Carvedilol 12.5 mg 03/09/25 21:00 03/09/25 20:50 Carvedilol 12.5mg Tablet PO 04/08/25 20:59 12.5 mg BID TAWNYA Administration Dapagliflozin 10 mg 03/10/25 09:00 Dapagliflozin Propanediol 10 Mg Tablet PO 04/09/25 08:59 DAILY TAWNYA Famotidine 20 mg 03/09/25 21:00 03/09/25 20:51 Famotidine 20mg/2ml Vial IV 04/08/25 20:59 20 mg BID TAWNYA Administration Sodium Chloride 250 mls @ 25 mls/hr 03/09/25 12:00 03/09/25 21:02 Sod Chlor 0.9% 250ml Bag IV 03/10/25 11:59 Not Given .Q10H TAWNYA Sodium Chloride 250 mls @ 25 mls/hr 03/09/25 19:15 03/09/25 20:51 Sod Chlor 0.9% 250ml Bag IV 03/10/25 19:14 25 mls/hr .Q10H TAWNYA Administration Levothyroxine Sodium 50 mcg 03/10/25 09:00 Levothyroxine 50mcg (0.05mg) Tab PO 04/09/25 08:59 DAILY TAWNYA Misoprostol 200 mcg 03/09/25 18:00 03/09/25 18:20 Misoprostol 200 Mcg Tablet PO 04/08/25 17:59 Not Given Q6H TAWNYA Nitroglycerin 0.4 mg 03/09/25 19:35 Nitroglycerin 0.4mg Sl Tablet SL 04/08/25 19:34 Q5M PRN Chest Pain Non-Formulary Medication 80 mg 03/09/25 21:00 03/09/25 21:02 Valsartan PO 04/08/25 20:59 Not Given BID TAWNYA Ondansetron HCl 4 mg 03/09/25 19:21 Ondansetron 4mg/2ml Vial IV 04/08/25 19:20 Q8HP PRN Nausea Pantoprazole Sodium 40 mg 03/09/25 21:00 03/09/25 20:51 Pantoprazole 40mg Vial IV 04/08/25 20:59 40 mg BID TAWNYA Administration Sodium Chloride 8 ml 03/09/25 19:21 Sodium Chloride 0.9% 10ml Vial IV 04/08/25 19:20 NEEDED PRN dilute pepcid Spironolactone 25 mg 03/10/25 09:00 Spironolactone 25mg Tablet PO 04/09/25 08:59 DAILY TAWNYA Tamsulosin HCl 0.8 mg 03/09/25 21:00 03/09/25 20:51 Tamsulosin 0.4mg Capsule PO 04/08/25 20:59 0.8 mg HS TAWNYA Administration Discontinued Medications Generic Name Dose Route Start Last Admin Trade Name Javad PRN Reason Stop Dose Admin Pantoprazole Sodium 80 mg/ 100 mls @ 100 mls/hr 03/09/25 09:38 03/09/25 09:51 Sodium Chloride IV 03/09/25 10:37 100 mls/hr ONCE ONE Administration ORDERS Category Date Time Status PRBC [Red Blood Cells] Stat BBK 03/09/25 09:38 Results Type and Screen Stat K 03/09/25 09:[address] head/brain wo con Stat Cat Scan 03/09/25 09:41 Completed Pelvis XR 1-2 views [XR pelvis 1-2V] Stat Exams 03/09/25 09:41 Completed Portable CXR [XR chest portable] Stat Exams 03/09/25 09:41 Completed Activated Partial Thrombo Time Stat Lab 03/09/25 09:38 Completed CBC w/Auto Diff [Complete Blood Count Auto Diff] Stat Lab 03/09/25 09:38 Completed CK [Creatine Kinase] Stat Lab 03/09/25 09:38 Completed CMP [Comprehensive Metabolic Panel] Stat Lab 03/09/25 09:38 Completed Complete Blood Count Auto Diff AMLAB Lab 03/10/25 06:00 Ordered Comprehensive Metabolic Panel AMLAB Lab 03/10/25 06:00 Ordered H/H Post-Transfn [Hemoglobin & Hematocrit, Post] Timed Lab 03/09/25 16:05 Completed Hemoglobin and Hematocrit Stat Lab 03/09/25 11:40 Completed Lipase Stat Lab 03/09/25 09:38 Completed Magnesium AMLAB Lab 03/10/25 06:00 Ordered PT INR [Prothrombin Time INR] Stat Lab 03/09/25 09:38 Completed Troponin I Q3H Lab 03/09/25 13:48 Completed Troponin I Stat Lab 03/09/25 09:38 Completed Medical Decision Narrative: In summary, this is a 79-year-old male patient who is very comorbid with a past medical history of hypertension, CAD status post multivessel percutaneous coronary intervention, HFrEF, and peptic ulcer disease with recurrent gastrointestinal bleeding, who is presenting to the emergency department today for evaluation of GI bleeding with melanotic stools. The patient was admitted to our hospital last week for concomitant non-ST elevation myocardial infarction with a troponin of 6 as well as blood loss anemia with melenic stools. He underwent APC ablation of angiodysplasia as well as Endo-coil placement of an ulcer in the second portion duodenum. A couple of days later the patient underwent percutaneous coronary intervention and had 3 drug-eluting stents placed for in-stent stenosis of his circumflex artery. He was discharged home on dual antiplatelet therapy and now re-presents to the hospital today with weakness in the setting of a significant amount of melanotic stools at home this morning. On initial evaluation of the patient he was sitting upright in no acute distress and was nontoxic in appearance. He is hemodynamically stable, saturating well on room air, and is neurologically intact. The patient's groin and lower extremities are covered with a mixture of hematochezia and melena. On examination the patient is pale appearing and he has conjunctival pallor. He does not have any abdominal tenderness to palpation and no evidence of peritonitis. On secondary survey from a traumatic standpoint, the patient does not have any scalp lacerations, hematomas, or abrasions. No midface instability or jaw malocclusion. No nasal septal hematoma. No intraoral lacerations or lesions. No cervical spine tenderness. He does have mild tenderness over the right lateral rib cage. His pelvis is stable. He does not have any deformities of his extremities. At this time differential diagnosis includes upper GI bleeding, peptic ulcer disease, lower GI bleeding, intracranial hemorrhage, skull fractures, pneumothorax, rib fractures, pelvic fractures, among others. Given the patient's benign abdominal exam I have low suspicion for a perforated gastric ulcer at this time. In addition, I have a low suspicion for acute arterial bleeding given that he is hemodynamically stable and is not tachycardic. Despite stating that he has not hit his head, I do feel like the prudent thing is to obtain a CT scan of the head without contrast given that he is on dual antiplatelet therapy and suffered a fall. Workup will also be initiated with hematologic labs including a type and screen, as well as with further traumatic screening with a pelvis and chest x-ray. Initial interventions included 80 mg of IV Protonix. Labs personally interpreted by me demonstrate a hemoglobin of 7.7 and a hematocrit of 24 indicative of anemia. Coags are normal.patient's troponins on 03 05 were 4, today they are 0.49 and 0.36 suggestive against acute myocardial ischemia. After a period of time we did repeat a hemoglobin and his hemoglobin dropped from 7.7->6.8, so we have also transfused the patient with 1 unit of packed red blood cells. Throughout the patient's stay in the emergency department he was high risk for decompensation given his active bleeding and necessity for blood transfusion. He was monitored with serial blood pressure monitoring and continuous telemetry and oximetry. Fortunately thus far he has remained hemodynamically stable but his condition is guarded. Today our interventional missionary coordinator is not on-call. I did reach out to the general surgery service for intervention, however they feel that he needs an advanced missionary coordinator to be able to perform this procedure. In addition to this, our general surgeon states that he does not feel comfortable operating on the patient here as we do not have cardiac anesthesia available and he had a myocardial infarction. I have reached out to both the [facility] as well as [facility] in [place] and both of these centers are on diversion and are unable to accept the patient for transfer. At the time of shift change we were pending a repeat hemoglobin after transfusion. We were also pending transfer center callback for an accepting facility to manage this patient. This patient was handed off to Dr. Hamilton who will follow-up on this and disposition the patient appropriately. Juan Luis Hamilton MD At the time of my assumption of care, patient had a bed accepted at [facility] by Dr. Brody, however [place] stated that this bed will likely not become available for at least 24 hours. Given this, it is felt that patient will require admission for continued monitoring of his hemoglobin and repeat transfusions until he is able to be transferred for higher level of care. Patient was observed in the emergency department additional 4 hours after the bed in [place] was excepted. His hemoglobin had improved to 7.4 after 1 unit of PRBCs. He had remained stable throughout his ED visit. Ultimately, patient did not have a bed become available over the course of those 4 hours and was subsequently admitted to the hospitalist service after discussing the patient's case with GENEVA Cannon. Critical Care <Alberto Hunt, DO - Last Filed: 03/09/25 16:13> Critical Care Time Critical Care Time: Yes Attestation: On 03/09/25, the high probability of a clinically significant, sudden or life threatening deterioration of the following system(s) required my full and direct attention, intervention and personal management. The time I documented below is in addition to time spent performing reported procedures but includes the following listed in this critical care notation. Total Time Total Critical Care Time: 37
--- NOTE | 2025-03-09 09:41 | XR_ITS ---
FINAL REPORT CLINICAL HISTORY: Fall, Rib Pain on R COMPARISON: 02/28/2025 FINDINGS: No acute pulmonary opacity is present. There is no evidence of effusion or pneumothorax. Mediastinum is unremarkable. Heart size is normal. IMPRESSION: No acute abnormality. Reviewed, Interpreted and Dictated by Shankar Willis MD Transcribed by Mehnaz Prabhakar Authenticated and [facility]
--- NOTE | 2025-03-09 09:41 | CT_ITS ---
FINAL REPORT TECHNIQUE: Noncontrast exam This study was performed with techniques to keep radiation doses as low as reasonably achievable, (ALARA). Individualized dose reduction techniques using automated exposure control or adjustment of mA and/or kV according to the patient''s size were employed. CLINICAL HISTORY: Fall on blood thinners COMPARISON: 03/14/2020 FINDINGS: Moderate atrophy and chronic ischemic white matter changes are noted. 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 There is a chronic lacunar infarct in the left basal ganglia which is also new from prior. No cortical edema is present. There is no mass or hemorrhage. Ventricles are normal. Bone windows show no skull fracture or obvious obstructive lesion. IMPRESSION: 1. No acute intracranial abnormality or obvious mass. 2. Atrophy and chronic ischemic white matter changes as above. Reviewed, Interpreted and Dictated by Shankar Willis MD Transcribed by Mehnaz Prabhakar Authenticated and [facility]
--- NOTE | 2025-03-09 09:41 | XR_ITS ---
FINAL REPORT CLINICAL HISTORY: Fall FINDINGS: PELVIS One view was obtained. There is no fracture or dislocation. Patient is status post arthroplasty changes of the left hip. There are moderate degenerative changes of the right hip and bilateral sacroiliac joints. IMPRESSION: No acute process. Reviewed, Interpreted and Dictated by Shankar Willis MD Transcribed by Mehnaz Prabhakar Authenticated and [facility]
[2025-03-09 09:50] LABS: Hematocrit 24.1 % (42.0-52.0); Hemoglobin 7.7 g/dL (14.1-18.0); Immature Granulocytes % 1.6 %; Mean Corpuscular HGB Conc 32.0 g/dL (31.8-35.4); Mean Corpuscular Hemoglobin 28.9 pg (27.0-31.2); Mean Corpuscular Volume 90.6 fl (80-94); Nucleated Red Blood Cells % 0 %; Platelet Count 428 K/mm3 (142-424); Red Blood Count 2.66 M/mm3 (4.60-6.20); Red Cell Distribution Width-SD 52.0 fL; White Blood Count 14.7 K/mm3 (4.8-10.8)
[2025-03-09] MEDS: PANTOPRAZOLE SODIUM 80 MG in 0.9 % SODIUM CHLORIDE 100 ML 100 MG IV (09:51)
--- NOTE | 2025-03-09 09:52 | PC.NURSE ---
pt going for CT and xrays at this time via bed with [employer]
[2025-03-09 09:59] LABS: Alanine Aminotransferase 16 U/L (12-78); Albumin Level 3.6 g/dl (3.5-5.0); Albumin/Globulin Ratio 1.3 (1.1-1.8); Alkaline Phosphatase 76 U/L (38-126); Anion Gap 15.4 mEq/L (5-15); Aspartate Amino Transferase 22 U/L (17-59); Bilirubin,Total 0.4 mg/dl (0.2-1.3); Blood Urea Nitrogen 34 mg/dl (9-20); Calcium 8.2 mg/dl (8.4-10.2); Carbon Dioxide 23 mmol/L (22.0-30.0); Chloride 106 mmol/L (98-107); Creatine Kinase 55 U/L (55-170); Creatinine Clearance Estimated 69 mL/min (50-200); Creatinine,Serum 1.50 mg/dl (0.66-1.25); Estimated Glomerular Filt Rate 45 ml/min (>60); GFR (African American) 55 ML/MIN (>60); Globulin 2.8 g/dL (1.3-3.2); Glucose 133 mg/dl (74-100); Lipase 44 U/L (23-300); Potassium 4.4 mmoL/L (3.5-5.1); Sodium 140 mmol/L (136-145); Total Protein,Serum 6.4 g/dl (6.3-8.2)
[2025-03-09 10:06] LABS: Activated Partial Thrombo Time 23.9 seconds (22.8-30.6); INR 1.12 (0.9-1.1); Prothrombin Time 12.3 seconds (10.1-12.5)
--- NOTE | 2025-03-09 11:16 | ECG_ITS ---
APPROVED REPORT Exam: Resting ECG HR:89 bpm ECG Measurements Heart Rate 89 AXES [place] 195 P 48 QRSd 84 QRS -8 QT 365 T 60 QTc 412 Conclusion SINUS RHYTHM Left [place] Normal intervals No STEMI Electronically signed by : Alberto Hunt, 03/09/2025 16:49:46
--- NOTE | 2025-03-09 11:30 | PC.NURSE ---
speaking with Dr. Mckeon
[2025-03-09 11:34] LABS: Troponin I 0.49 ng/ml (0.00-0.034)
[2025-03-09 11:45] LABS: Hematocrit 21.6 % (42.0-52.0)
[2025-03-09 11:51] LABS: Hemoglobin 6.8 g/dL (14.1-18.0)
--- NOTE | 2025-03-09 12:23 | PC.NURSE ---
Dr Hunt [facility]
--- NOTE | 2025-03-09 12:44 | PC.NURSE ---
blood consent obtained from [facility]. Family is at bedside
--- NOTE | 2025-03-09 13:09 | PC.NURSE ---
called [facility] per Dr Hunt for transfer for GI bleed. [facility] advised they would call hospitalist and call back.
[2025-03-09] MEDS: 0.9 % SODIUM CHLORIDE 250 ML 25 ML IV ×2 (13:30→20:51)
--- NOTE | 2025-03-09 14:02 | PC.NURSE ---
Dr Hunt is currently on phone with [facility]
--- NOTE | 2025-03-09 14:22 | PC.NURSE ---
called per Dr Hunt for transfer for GI bleed. [facility] advised they would call back.
[2025-03-09 14:23] LABS: Troponin I 0.36 ng/ml (0.00-0.034)
--- NOTE | 2025-03-09 14:23 | PC.NURSE ---
Critical lab triponin 0.36 [place]
--- NOTE | 2025-03-09 15:30 | PC.NURSE ---
pt accepted by Dr. Smith to [facility] but stated they wont have a ready bed until over 24 hours.
--- NOTE | 2025-03-09 15:35 | PC.NURSE ---
attempted to admit to the floor. hospitalist stated we needed to hold the pt in the ED for 4 hours until we admit to the floor per new policy
--- NOTE | 2025-03-09 15:38 | PC.NURSE ---
called [facility] per Dr Hunt for transfer for GI bleed. requested hospital with GI. [facility] will call back.
--- NOTE | 2025-03-09 16:03 | PC.NURSE ---
Spoke with the transfer center at [facility] with concerns about results of a abdominal CT. Informed transfer center abdominal CT wasn't ordered. Transfer Center will call back after speaking to
[2025-03-09 16:17] LABS: Hematocrit 24.0 % (42.0-52.0); Hemoglobin 7.4 g/dL (14.1-18.0)
--- NOTE | 2025-03-09 18:30 | PC.NURSE ---
ELEN Boyle at bedside to admit pt after 193. house notified
--- NOTE | 2025-03-09 19:40 | PC.NURSE ---
report given to Haydee HEALY on the floor.
--- NOTE | 2025-03-09 19:45 | P.HP_ITS ---
<Statement entered by Eliseo Jameson MD - 03/12/25 16:17> Personally evaluated patient and agree with plan of care as outlined by the DIRECTOR HEART. History of Present Illness *Admission Date: 03/09/25 *Reason for visit:: GI bleed, recent stents post catheterization cardiac *History of present illness: Mr. Moody a 79-year-old male who has significant lower leg lymphedema chronic uses a walker to get around. He recently has had stents placed during cardiac catheterization due to significant cardiovascular disease. He has had this also done in the past. Patient remains on aspirin and Plavix because of this.. Patient also has history of GI bleed with several procedures that have been done. He began to have black stools today came into the emergency room found to be lower than his normal hemoglobin of 9 received 1 unit in the ER. Patient remained stable in the emergency room. The ER doctor talked with our surgery and gastroenterology that this patient's extensive history required more than he could receive here. And suggest that he be transferred. Emergency room physician noted to me that the hospitals in [place] were on divert.. He was able to get a hold of the [facility] that would accept him but the bed was not ready. The hospital in [place] said to expect at least a 24-hour delay. Following hospital policy after 4-1/2 hours in the ER patient will be admitted to the floor. Patient is stable at this time but will continue him on continuous monitoring coordinator. Due to the possibility of surgery will only keep him on a clear liquid diet at this time. Patient has been placed on 2 types of medication to decrease stomach acids at this time to try to prevent any more bleed. Plavix and aspirin are on hold. And during my exam the patient is alert oriented actually has some pinkness to his face and appears to be in no distress. Will place the patient on the floor continue to monitor him I have personally spoke with the lab personnel we will keep 2 units of blood on hold. Once he has been on the floor for a while we will recheck his H&H with his cardiac history the question is us to transfuse if below 7 or if it is below 8. At the present time he is in no distress so we will hold on any transfusion as his last hemoglobin was 7.4. Nursing personnel on the floor are aware of the fact that he is to be transferred we will continue to follow-up with the [facility] as needed to expedite his departure. [facility] Disclaimer: The information contained in this section may have been updated after the harleen amy was seen, as this information can be updated by other users. Medical History (Updated 03/09/25 @ 20:06 by Branden Allison APRN) Cardiovascular disease Bilateral lower leg cellulitis Lymphedema of both lower extremities Chronic acquired lymphedema UGIB (upper gastrointestinal bleed) PUD (peptic ulcer disease) Duodenitis Nausea and vomiting Nausea Encounter for laboratory testing for COVID-19 virus Diabetes mellitus Gastroenteritis and colitis, viral Dehydration PICC (peripherally inserted central catheter) in place Diabetic foot Multiple drug resistant organism (MDRO) culture positive Near syncope Cellulitis, leg Ingrowing Toenail Callus of foot Onychoincurvatum Onychodystrophy Pain around toenail, left foot Ingrowing Toenail Cellulitis of right leg Arthritis PAD (peripheral artery disease) HTN (hypertension), benign Heart murmur T2DM (type 2 diabetes mellitus) BPH (benign prostatic hyperplasia) Peripheral vascular disease Surgical History Hx of colonoscopy History of total left hip replacement Family History Other Cancer Heart attack Social History Smoking Status: Never smoker alcohol intake: never substance use type: denies use current occupational status: retired Travel in the last 8 weeks?: None household members: none housing: house 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 current occupational exposures/hazards: No caffeine: Yes Have you lived/traveled outside US in past 30 days?: No Contact w/someone who lives/traveled outside US past 30 days?: No Exposure to someone with infectious disease in past 14 days?: No Do you have a fever (greater than 100.4 F or 38 C)?: No Have you tested positive for COVID-19?: No Exposed to someone with COVID-19 in past 14 days?: No Do you have a sore throat?: No Do you have a cough?: No Do you have any weakness?: No Do you have any diarrhea?: No Are you experiencing any unusual bleeding?: No Do you have any muscle aches/pain?: No Do you have any abdominal pain?: No Are you experiencing loss of taste or smell?: No Other Medical History Have you received the Flu Vaccine for this season: No Have you received the Pneumonia Vaccine: No Review of Systems Review of Systems Review of systems:: pertinent systems reviewed and negative unless documented below Constitutional Constitutional: Reports as per HPI, Reports lethargy and Reports malaise Comments: Black tarry stool started today ENT Ears, Nose, Mouth, and Throat: Reports as per HPI Comments: Patient reports he still has heartburn at time but no difficulty swallowing *Cardiovascular Cardiovascular: Reports as per HPI Comments: Patient uses a walker to be able to ambulate but he is stating that he is not having any chest pain here or in the recent past *Respiratory Respiratory: Reports as per HPI Comments: He reports no shortness of breath *Gastrointestinal Gastrointestinal: Reports as per HPI and Reports melena Comments: No abdominal pain *Genitourinary Genitourinary: Reports as per HPI Comments: States he normally can control his urine but he has a pure wick on at this time, that way he does not have to get out of bed if he does not want to *Musculoskeletal Musculoskeletal: Reports as per HPI Comments: Normally uses a walker chronic lower leg edema edema Integumentary/Breasts Skin/Breast: Reports as per HPI and Reports skin ulcer (Top of left foot, old and appears to be resolving) *Neurologic Neurologic: Reports as per HPI Comments: Patient reports he has had no weakness or loss of sensation Psychiatric Psychiatric: Reports as per HPI Endocrine Endocrine: Reports as per HPI Hematologic/Lymphatic Hematologic/Lymphatic: Reports as per HPI Allergic/Immunologic Allergic/Immunologic: Reports as per HPI Meds Home Medications and Allergies Home Medications ?Medication ?Instructions ?Recorded ?Confirmed ?Type tamsulosin 0.4 mg capsule 0.8 mg PO HS 04/04/18 History furosemide 20 mg tablet 20 mg PO MOWEFR 08/17/2407/24 History valsartan 80 mg tablet 80 mg PO BID 09/04/24 History Held on 03/05/25. Instructions: due to soft BP, re-evaluate at follow-up with cardiology dapagliflozin propanediol 10 mg 10 mg PO DAILY #30 tab s 11/15/24 03/09/25 Rx tablet (Farxiga) carvedilol 12.5 mg tablet 12.5 mg PO BID #60 tabs 11/2803/09/25 Rx Held on 03/05/25. Instructions: due to hypotension until follow-up with cardiology famotidine 40 mg tablet 40 mg PO HS 12/13/24 5 History nitroglycerin 0.4 mg sublingual 0.4 mg sublingual Q5M PRN chest 12/13/24 03/09/25 Rx tablet pain #25 tabs spironolactone 25 mg tablet 25 mg PO DAILY 12/13/24 History levothyroxine 50 mcg tablet 50 mcg PO DAILY 02/28/25 0 03/09/25 History atorvastatin 40 mg tablet 40 mg PO HS 30 days #30 tabs 03/02/25 03/09/25 Rx aspirin 81 mg tablet,delayed 81 mg PO DAILY 30 days #3 0 tabs 03/05/25 03/09/25 Rx release clopidogrel 75 mg tablet 75 mg PO DAILY #90 tabs 03/2303/09/25 Rx pantoprazole 40 mg tablet,delayed 40 mg PO DAILY #30 t abs 03/05/25 03/09/25 Rx release New Prescriptions to Start Prescriptions: Allergies Allergy/AdvReac Type Severity Reaction Status Date / Time Antihistamines - Alkylamine Allergy Mild MADE SKIN Verified 01/15/25 14:51 (ANTIHISTAMINES - ALKYLAMINE) FEEL LIKE ON FIRE NSAIDS (Non-Steroidal AdvReac Severe kidney Verified 01/15/25 14:51 Anti-Inflamma failure Exam Data for Last 24 hours Vital signs and Labs for Last 24 Hours: Temp Pulse Resp BP Pulse Ox O2 Del Method 98.3 F 92 H 21 139/65 100 Room Air 03/09/25 16:05 03/09/25 19:15 03/09/25 19:15 03/09/25 19:15 03/09/25 19:15 03/09/25 16:15 Laboratory Results - last 24 hr 03/09/25 09:38: WBC 14.7 H, RBC 2.66 L, Hgb 7.7 L, Hct 24.1 L, MCV 90.6, MCH 28.9, MCHC 32.0, RDW 16.1, Plt Count 428 H, MPV 9.0, Neut % (Auto) 78.2, Lymph % (Auto) 13.2, [place] % (Auto) 5.9, Eos % (Auto) 0.7, Baso % (Auto) 0.4, Neut # (Auto) 11.5 H, Lymph # (Auto) 1.9, [place] # (Auto) 0.9, Eos # (Auto) 0.1, Baso # (Auto) 0.1, PT 12.3, INR 1.12 H, APTT 23.9, Sodium 140, Potassium 4.4, Chloride 106, Carbon Dioxide 23, Anion Gap 15.4 H, BUN 34 H, Creatinine 1.50 H, Estimated Creat Clear 69, Estimated GFR 45 L, Est GFR ( Amer) 55 L, Glucose 133 H, Calcium 8.2 L, Total Bilirubin 0.4, AST 22, ALT 16, Alkaline Phosphatase 76, Total Creatine Kinase 55, Troponin I 0.49 H, Total Protein 6.4, Albumin 3.6, Globulin 2.8, Albumin/Globulin Ratio 1.3, Lipase 44, Blood Type A Positive, Antibody Screen Negative, Crossmatch (AHG) See Detail 03/09/25 11:40: Hgb 6.8 L*, Hct 21.6 L 03/09/25 13:48: Troponin I 0.36 H 03/09/25 16:05: Hgb 7.4 L, Hct 24.0 L I & O for Last 24 hours: Intake & Output 03/07/25 03/08/25 03/09/25 03/10/25 05:59 05:59 05:59 05:59 Intake Total 250 / 250 Balance 250 / 250 Weight 264 lb Narrative: Patient received 1 unit of packed cells in the ER Constitutional Constitutional: no acute distress, obese and chronically ill appearing *Routine HEENT Exam Head: Present normocephalic and atraumatic Eye: Present EOMI, PERRL and normal accommodation ENT: Present mucous membranes moist *Routine Neck Exam Neck: Present supple and full ROM Routine Chest/Breast/Axilla Exam Comments: No tenderness of the chest wall *Routine Respiratory Exam Respiratory: Present CTA bilaterally, normal respiratory effort, able to speak in complete sentences and symmetric chest movement Comments: Respiratory exam perfectly normal patient is on room air *Routine Cardiovascular Exam Cardiovascular: Present RRR, Normal S1 and Normal S2 Comments: Patient noted for chronic lower leg edema. Is on several diuretics., But heart sounds are basically normal and regular. No sounds of any significant murmurs no sounds of rubs *Routine Abdominal Exam Abdominal: Present soft, normoactive bowel sounds and obese Comments: No tenderness found *Routine Rectal Exam Rectal:: deferred *Routine Genitalia Exam Genitalia:: normal male Comment:: Is wearing a pure wick at this time *Routine Extremities Exam Comments: Patient has redness to both lower extremities below the knee there is a healing skin ulcer to the top of the left foot. The areas of redness scabbing dry skin. Definitely chronic condition. Patient is noted that if he does get up to ambulate he has to use a walker *Routine Skin Exam Skin: Present intact and lesions (As noted above lesion to the left foot that appears to be healing question pressure ulcer versus skin breakdown related to chronic edema) *Routine Neurological Exam Neurological: Present alert, oriented X3 and CN II-XII intact Comments: Could find no signs of neurological deficits the patient is alert oriented answers questions well Routine Psychiatric Exam Psychiatric: Present normal affect, normal thought process, cooperative, good insight and good judgment H&P: Result Impressions 1. Cardiovascular disease with recent stenting and anticoagulation protocol 2. Long history of GI type ulcers with past surgeries now with acute bleed 3. Abnormal H&H requiring 1 unit of blood transfusion in emergency room Assessment and Plan *Assessment and plan (1) Acute blood loss anemia: Status: Acute Category: Medical Code(s): D62 - Acute posthemorrhagic anemia (2) Acute GI bleeding: Status: Acute Category: Medical Code(s): K92.2 - Gastrointestinal hemorrhage, unspecified (3) Peripheral arterial disease: Status: Acute Category: Medical Code(s): I73.9 - Peripheral vascular disease, unspecified (4) Chronic ulcer of leg: Status: Acute Qualifiers: Laterality: unspecified laterality Non-pressure ulcer stage: unspecified non-pressure ulcer stage Qualified Code(s): L97.909 - Non-pressure chronic ulcer of unspecified part of unspecified lower leg with unspecified severity Category: Medical Code(s): L97.909 - Non-pressure chronic ulcer of unspecified part of unspecified lower leg with unspecified severity (5) Stage III chronic kidney disease: Status: Chronic Qualifiers: Chronic kidney disease stage 3 subtype: stage 3a (GFR 45-59) Qualified Code(s): N18.31 - Chronic kidney disease, stage 3a Category: Medical Code(s): N18.30 - Chronic kidney disease, stage 3 unspecified (6) Cardiovascular disease: Status: Acute Category: Medical Code(s): I25.10 - Atherosclerotic heart disease of eek coronary artery without angina pectoris Plan 1. Patient was needs to be transferred to a [facility] but bed is not ready at this time. Patient will be placed up on the floor monitored continuously for cardiac changes. Will keep on clear liquid diet at this time in case surgery would be needed. Patient has received 1 unit of blood in the emergency room will keep 2 units of blood on hold in the blood bank.. Will transfuse if less than 7 or symptomatic and we will try to keep that above 8 only because of his cardiovascular disease. Presently is doing well so we will recheck labs H&H at midnight.. 2. We will continue most of his home meds monitoring for any fluid overload, as he is on diuretics, but due to the potential of AN acute bleed holding them at the present time for tonight. Will continue his other cardiac meds for blood pressure control or hold as needed. 3. Will continue to monitor for an open bed in [place] that he can be accepted and transport as soon as possible.
[2025-03-09] MEDS: CARVEDILOL 12.5MG TABLET 12.5 MG PO (20:50)
[2025-03-09] MEDS: PANTOPRAZOLE 40MG VIAL 40 MG IV (20:51)
[2025-03-09] MEDS: TAMSULOSIN 0.4MG CAPSULE 0.8 MG PO (20:51)
[2025-03-09] MEDS: FAMOTIDINE 20MG/2ML VIAL 20 MG IV (20:51)
[2025-03-10] VITALS (15 sets, daily range): BP systolic 105–130; BP diastolic 54–71; PULSE 50–75; RESP 14–20; TEMP 36.3–36.8; O2SAT 97–100; BMI 39.8
[2025-03-10 01:10] LABS: Hematocrit 22.1 % (42.0-52.0); Hemoglobin 7.1 g/dL (14.1-18.0)
--- NOTE | 2025-03-10 03:02 | PC.NURSE ---
Pt AOx4, new admit this shift as he is awaiting transfer to for GI bleed. Most recent Hgb at 0000 was 7.1, hospitalist is aware and states that he wants to hold off on giving blood until the recheck at 0600. Pt denies pain or any additional needs. Currently resting in bed with eyes closed. Respirations even and unlabored. Bed is low, locked, and call light is in reach.
[2025-03-10 07:21] LABS: Hematocrit 24.3 % (42.0-52.0); Hemoglobin 7.7 g/dL (14.1-18.0); Immature Granulocytes % 1.3 %; Mean Corpuscular HGB Conc 31.7 g/dL (31.8-35.4); Mean Corpuscular Hemoglobin 29.1 pg (27.0-31.2); Mean Corpuscular Volume 91.7 fl (80-94); Nucleated Red Blood Cells % 0 %; Platelet Count 352 K/mm3 (142-424); Red Blood Count 2.65 M/mm3 (4.60-6.20); Red Cell Distribution Width-SD 53.7 fL; White Blood Count 10.6 K/mm3 (4.8-10.8)
--- NOTE | 2025-03-10 07:35 | PC.WOUNDNOTE ---
(1) 1: ulceration left foot
[2025-03-10 07:39] LABS: Alanine Aminotransferase 14 U/L (12-78); Albumin Level 3.4 g/dl (3.5-5.0); Albumin/Globulin Ratio 1.2 (1.1-1.8); Alkaline Phosphatase 78 U/L (38-126); Anion Gap 16.4 mEq/L (5-15); Aspartate Amino Transferase 20 U/L (17-59); Bilirubin,Total 0.6 mg/dl (0.2-1.3); Blood Urea Nitrogen 28 mg/dl (9-20); Calcium 8.1 mg/dl (8.4-10.2); Carbon Dioxide 22 mmol/L (22.0-30.0); Chloride 106 mmol/L (98-107); Creatinine Clearance Estimated 60 mL/min (50-200); Creatinine,Serum 1.70 mg/dl (0.66-1.25); Estimated Glomerular Filt Rate 39 ml/min (>60); GFR (African American) 47 ML/MIN (>60); Globulin 2.8 g/dL (1.3-3.2); Glucose 96 mg/dl (74-100); Magnesium 1.5 mg/dl (1.6-2.3); Potassium 4.4 mmoL/L (3.5-5.1); Sodium 140 mmol/L (136-145); Total Protein,Serum 6.2 g/dl (6.3-8.2)
[2025-03-10] MEDS: LEVOTHYROXINE 50MCG (0.05MG) TAB 50 MCG PO (07:46)
[2025-03-10 07:51] LABS: POC Glucose,Bedside 110 (70-110)
[2025-03-10] MEDS: FAMOTIDINE 20MG/2ML VIAL 20 MG IV ×2 (09:27→20:11)
[2025-03-10] MEDS: PANTOPRAZOLE 40MG VIAL 40 MG IV ×2 (09:27→20:10)
[2025-03-10] MEDS: CARVEDILOL 12.5MG TABLET 12.5 MG PO (09:27)
[2025-03-10] MEDS: MAGNESIUM SULFATE IN WATER 2 GM/50 ML PIGGYBACK IV ×2 (09:27→10:19)
[2025-03-10] MEDS: IRBESARTAN 75MG TABLET 75 MG PO (09:27)
[2025-03-10] MEDS: DAPAGLIFLOZIN PROPANEDIOL 10 MG TABLET PO (09:27)
[2025-03-10] MEDS: SPIRONOLACTONE 25MG TABLET 25 MG PO (09:27)
--- NOTE | 2025-03-10 09:31 | HMH.PHAINT1 ---
Pharmacy Intervention Comments: MEDICATION RECONCILIATION COMPLETE USING EXTERNAL PHARMACY FILL HISTORY AND RECENT HOSPITAL DISCHARGE NOTE.
[2025-03-10 10:21] LABS: POC Glucose,Bedside 100 (70-110)
--- NOTE | 2025-03-10 10:34 | PC.NURSE ---
Pt. refused blood thinners and it was explained that they are for his heart stents. Still refused.
[2025-03-10 14:06] LABS: Hematocrit 22.8 % (42.0-52.0); Hemoglobin 7.3 g/dL (14.1-18.0)
--- NOTE | 2025-03-10 14:31 | PC.NURSE ---
Aox 4, up with assistance times one, 20g L ac sl, 18g R ac sl, purewick in place, fsbg achs, awaiting transfer to for GI bleed.
[2025-03-10 16:11] LABS: POC Glucose,Bedside 90 (70-110)
--- NOTE | 2025-03-10 17:46 | P.PN_ITS ---
Subjective *Date: 03/10/25 *Time: 17:46 Interval history: Patient feeling better today, improvement in melanotic stools. Discussed extensively with family at bedside, and then with Dr. Mello. Dr. Mello stated we can medically manage patient here if GI bleed is stable. Otherwise, transfer to tertiary center. Exam Data for Last 24 hours Vital signs and Labs for Last 24 Hours: Temp Pulse Resp BP Pulse Ox O2 Del Method 97.9 F 62 20 129/63 98 Room Air 03/10/25 16:00 03/10/25 16:00 03/10/25 16:00 03/10/25 16:00 03/10/25 16:00 03/10/25 16:07 Laboratory Results - last 24 hr 03/09/25 09:38: Blood Type A Positive, Antibody Screen Negative, Crossmatch (AHG) See Detail 03/10/25 01:00: Hgb 7.1 L, Hct 22.1 L 03/10/25 07:05: WBC 10.6 D, RBC 2.65 L, Hgb 7.7 L, Hct 24.3 L, MCV 91.7, MCH 29.1, MCHC 31.7 L, RDW 16.4, Plt Count 352, MPV 8.9, Neut % (Auto) 66.4, Lymph % (Auto) 20.8, [place] % (Auto) 7.6, Eos % (Auto) 3.1, Baso % (Auto) 0.8, Neut # (Auto) 7.0, Lymph # (Auto) 2.2, [place] # (Auto) 0.8, Eos # (Auto) 0.3, Baso # (Auto) 0.1, Sodium 140, Potassium 4.4, Chloride 106, Carbon Dioxide 22, Anion Gap 16.4 H, BUN 28 H, Creatinine 1.70 H, Estimated Creat Clear 60, Estimated GFR 39 L, Est GFR ( Amer) 47 L, Glucose 96 D, Calcium 8.1 L, Magnesium 1.5 L , Total Bilirubin 0.6, AST 20, ALT 14, Alkaline Phosphatase 78, Total Protein 6.2 L, Albumin 3.4 L, Globulin 2.8, Albumin/Globulin Ratio 1.2 03/10/25 07:41: POC Glucose 110 03/10/25 10:14: POC Glucose 100 03/10/25 14:00: Hgb 7.3 L, Hct 22.8 L 03/10/25 16:05: POC Glucose 90 I & O for Last 24 hours: Intake & Output 03/07/25 03/08/25 03/09/25 03/10/25 23:59 23:59 23:59 23:59 Intake Total 250 / 250 960 / 960 Output Total 0 / 200 700 / 700 Balance 250 / 50 260 / 260 Weight 117.843 kg 119.113 kg Constitutional Constitutional: no acute distress *Routine HEENT Exam Head: Present normocephalic Eye: Present EOMI and PERRL ENT: Present mucous membranes moist *Routine Neck Exam Neck: Present supple; Absent lymphadenopathy *Routine Respiratory Exam Respiratory: Present CTA bilaterally *Routine Cardiovascular Exam Cardiovascular: Present RRR *Routine Abdominal Exam Abdominal: Present soft and normoactive bowel sounds; Absent tenderness *Routine Extremities Exam Extremities: Absent cyanosis, clubbing or edema *Routine Skin Exam Skin: Present warm; Absent rash *Routine Neurological Exam Neurological: Present alert and oriented X3 Assessment and Plan *Assessment and plan (1) Acute blood loss anemia: Status: Acute Category: Medical Code(s): D62 - Acute posthemorrhagic anemia (2) Acute GI bleeding: Status: Acute Category: Medical Code(s): K92.2 - Gastrointestinal hemorrhage, unspecified Plan Riki Mckeon is a 79-year-old male with a medical history significant for duodenal ulcer, HFrEF, NSTEMI/CAD s/p stents, hypothyroidism, BPH who presented with 1 day onset of melanotic stools and was admitted for upper GI bleed pending transfer to [facility]. #Recurrent upper GI bleed #Acute on chronic anemia ? Recently underwent EGD with bleeding duodenal ulcer and the clipping 03/01/2025. Patient was discharged in stable condition. Apparently, patient had about la rge, strained bowel movement the day before admission which was melanotic. Has since had more melanotic stools prior to admission. Hemoglobin 7.7 on arrival, dropped to 6.8 which improved with 1 unit transfusion. ? Hemoglobin 7.7-7.3 today, however vital signs stable. Melanotic stools improving per patient. ? I initially discussed case with Dr. Mello prior to admission, recommended interventional approach with advanced GI at tertiary facility. Currently on [facility] waitlist. ? Patient feels much better today, melanotic stools improving. Hemoglobin also stable. As such, I again discussed with Dr. Mello who stated he could attempt EGD with bear claw clipping of duodenal ulcer. Recommended patient could stay at her facility if stable. ? Continue IV Protonix 40 mg twice daily, sucralfate with meals, misoprostol 200 mcg every 6 hours. ? Currently on DAPT for recent NSTEMI with stents, misoprostol to mitigate this. ? Transfuse pRBC if hemoglobin less than 8 given recent NSTEMI with stents. #HFrEF #CAD s/p stents ? Patient recently had NSTEMI with 1 stent placed recently on 03-23. As such, will continue DAPT as high risk for in-stent thrombosis. ? Hold home GDMT Coreg, irbesartan, Farxiga, spironolactone in the setting of GI bleed. #Hypothyroidism ? Continue home levothyroxine 100 mcg. TFT stable. #BPH ? Resume home tamsulosin. Full code DVT prophylaxis: SCDs
[2025-03-10 18:55] LABS: Hematocrit 22.3 % (42.0-52.0); Hemoglobin 7.2 g/dL (14.1-18.0)
[2025-03-10] MEDS: SUCRALFATE 1GM TABLET 1 GM PO (20:09)
[2025-03-10] MEDS: ATORVASTATIN 40MG TABLET 40 MG PO (20:10)
[2025-03-10] MEDS: TAMSULOSIN 0.4MG CAPSULE 0.8 MG PO (20:10)
[2025-03-10] MEDS: SODIUM CHLORIDE 0.9% 10ML VIAL 8 ML IV (20:11)
[2025-03-11] VITALS (7 sets, daily range): BP systolic 109–142; BP diastolic 51–80; PULSE 62–80; RESP 16; TEMP 36.3–36.7; O2SAT 94–100; BMI 39.8
[2025-03-11 02:14] LABS: Hematocrit 27.4 % (42.0-52.0)
[2025-03-11 02:18] LABS: Hemoglobin 8.8 g/dL (14.1-18.0)
--- NOTE | 2025-03-11 04:52 | PC.NURSE ---
Pt. is alert and orientated x 4. Pt. is on room air. Pt. received one unit of PRBC's overnight Hemaglobin improved from 7.2 to 8.8. Pt. tolerated transfusion well No adverse reactions. Pt. has a purewick in place. Post transfusion pt. thought he had to have a BM but just passed gas. No stool output. Pt. sleeping on and off throughout shift. Pt. has voiced no needs or concerns. Post transfusion IV was leaking at site. New IV placed per ultrasound. Personal items and call posada in reach. Bed alarm on. sagfety measures in place.
[2025-03-11] MEDS: LEVOTHYROXINE 50MCG (0.05MG) TAB 50 MCG PO (06:43)
[2025-03-11] MEDS: SUCRALFATE 1GM TABLET 1 GM PO ×4 (06:43→20:22)
[2025-03-11 06:44] LABS: POC Glucose,Bedside 89 (70-110)
[2025-03-11 07:09] LABS: Hematocrit 26.5 % (42.0-52.0); Hemoglobin 8.5 g/dL (14.1-18.0); Immature Granulocytes % 1.5 %; Mean Corpuscular HGB Conc 32.1 g/dL (31.8-35.4); Mean Corpuscular Hemoglobin 29.5 pg (27.0-31.2); Mean Corpuscular Volume 92.0 fl (80-94); Nucleated Red Blood Cells % 0.2 %; Platelet Count 335 K/mm3 (142-424); Red Blood Count 2.88 M/mm3 (4.60-6.20); Red Cell Distribution Width-SD 51.5 fL; White Blood Count 9.4 K/mm3 (4.8-10.8)
[2025-03-11 07:31] LABS: Alanine Aminotransferase 12 U/L (12-78); Albumin Level 3.4 g/dl (3.5-5.0); Albumin/Globulin Ratio 1.3 (1.1-1.8); Alkaline Phosphatase 77 U/L (38-126); Anion Gap 15.0 mEq/L (5-15); Aspartate Amino Transferase 23 U/L (17-59); Bilirubin,Total 0.6 mg/dl (0.2-1.3); Blood Urea Nitrogen 25 mg/dl (9-20); Calcium 7.4 mg/dl (8.4-10.2); Carbon Dioxide 21 mmol/L (22.0-30.0); Chloride 104 mmol/L (98-107); Creatinine Clearance Estimated 60 mL/min (50-200); Creatinine,Serum 1.70 mg/dl (0.66-1.25); Estimated Glomerular Filt Rate 39 ml/min (>60); GFR (African American) 47 ML/MIN (>60); Globulin 2.6 g/dL (1.3-3.2); Glucose 75 mg/dl (74-100); Potassium 4.0 mmoL/L (3.5-5.1); Sodium 136 mmol/L (136-145); Total Protein,Serum 6.0 g/dl (6.3-8.2)
[2025-03-11 08:25] LABS: Magnesium 2.0 mg/dl (1.6-2.3)
[2025-03-11] MEDS: PANTOPRAZOLE 40MG VIAL 40 MG IV ×2 (08:26→20:21)
[2025-03-11] MEDS: ASPIRIN EC 81MG TABLET 81 MG PO (08:27)
[2025-03-11] MEDS: CLOPIDOGREL 75MG TAB 75 MG PO (08:27)
[2025-03-11] MEDS: FAMOTIDINE 20MG/2ML VIAL 20 MG IV ×2 (08:27→20:21)
[2025-03-11 10:28] LABS: POC Glucose,Bedside 87 (70-110)
[2025-03-11 10:28] LABS: POC Glucose,Bedside 95 (70-110)
--- NOTE | 2025-03-11 14:31 | PC.NURSE ---
Aox 4, up with assistance times one, 20g LAYLA sl, fsbg achs, using urinal and bsc, awaiting a possible transfer to , npo after midnight with a consult to see dr. Mello.
[2025-03-11 15:50] LABS: POC Glucose,Bedside 93 (70-110)
[2025-03-11 17:54] LABS: Hematocrit 26.6 % (42.0-52.0); Hemoglobin 8.6 g/dL (14.1-18.0)
--- NOTE | 2025-03-11 18:30 | EXP.PN ---
Subjective *Date: 03/11/25 *Time: 18:30 Interval history: Patient doing well, but continues to have melanotic stools. Hemoglobin stable however. Transfer to [facility] will therefore be canceled. N.p.o. at midnight for possible EGD in the morning. Exam Data for Last 24 hours Vital signs and Labs for Last 24 Hours: Temp Pulse Resp BP Pulse Ox O2 Del Method 98.1 F 65 16 109/67 L 100 Room Air 03/11/25 16:00 03/11/25 16:00 03/11/25 16:00 03/11/25 16:00 03/11/25 16:00 03/11/25 18:01 Laboratory Results - last 24 hr 03/09/25 09:38: Blood Type A Positive, Antibody Screen Negative, Crossmatch (AHG) See Detail 03/10/25 18:45: Hgb 7.2 L, Hct 22.3 L 03/10/25 20:21: POC Glucose 87 03/11/25 02:07: Hgb 8.8 L D, Hct 27.4 L 03/11/25 06:25: WBC 9.4, RBC 2.88 L, Hgb 8.5 L, Hct 26.5 L, MCV 92.0, MCH 29.5, MCHC 32.1, RDW 15.7, Plt Count 335, MPV 8.9, Neut % (Auto) 64.5, Lymph % (Auto) 21.8, [place] % (Auto) 8.0, Eos % (Auto) 3.5, Baso % (Auto) 0.7, Neut # (Auto) 6.1, Lymph # (Auto) 2.1, [place] # (Auto) 0.8, Eos # (Auto) 0.3, Baso # (Auto) 0.1, Sodium 136, Potassium 4.0, Chloride 104, Carbon Dioxide 21 L, Anion Gap 15.0, BUN 25 H, Creatinine 1.70 H, Estimated Creat Clear 60, Estimated GFR 39 L, Est GFR ( Amer) 47 L, Glucose 75 D, Calcium 7.4 L, Magnesium 2.0 D, Total Bilirubin 0.6, AST 23, ALT 12, Alkaline Phosphatase 77, Total Protein 6.0 L, Albumin 3.4 L, Globulin 2.6, Albumin/Globulin Ratio 1.3 03/11/25 06:35: POC Glucose 89 03/11/25 10:21: POC Glucose 95 03/11/25 15:40: POC Glucose 93 03/11/25 17:40: Hgb 8.6 L, Hct 26.6 L I & O for Last 24 hours: Intake & Output 03/08/25 03/09/25 03/10/25 03/11/25 23:59 23:59 23:59 23:59 Intake Total 250 / 250 1400 / 1440 1120 / 1120 Output Total 0 / 200 700 / 700 1270 / 1270 Balance 250 / 50 700 / 740 -150 / -150 Weight 117.843 kg 119.113 kg 119.11 kg Constitutional Constitutional: no acute distress *Routine HEENT Exam Head: Present normocephalic Eye: Present EOMI and PERRL ENT: Present mucous membranes moist *Routine Neck Exam Neck: Present supple; Absent lymphadenopathy *Routine Respiratory Exam Respiratory: Present CTA bilaterally *Routine Cardiovascular Exam Cardiovascular: Present RRR *Routine Abdominal Exam Abdominal: Present soft and normoactive bowel sounds; Absent tenderness *Routine Extremities Exam Extremities: Absent cyanosis, clubbing or edema *Routine Skin Exam Skin: Present warm; Absent rash *Routine Neurological Exam Neurological: Present alert and oriented X3 Assessment and Plan *Assessment and plan (1) Acute blood loss anemia: Status: Acute Category: Medical Code(s): D62 - Acute posthemorrhagic anemia (2) Acute GI bleeding: Status: Acute Category: Medical Code(s): K92.2 - Gastrointestinal hemorrhage, unspecified Plan Riki Mckeon is a 79-year-old male with a medical history significant for duodenal ulcer, HFrEF, NSTEMI/CAD s/p stents, hypothyroidism, BPH who presented with 1 day onset of melanotic stools and was admitted for upper GI bleed pending transfer to [facility]. #Recurrent upper GI bleed #Acute on chronic anemia ? Recently underwent EGD with bleeding duodenal ulcer and the clipping 03/01/2025. Patient was discharged in stable condition. Apparently, patient had about large, strained bowel movement the day before admission which was melanotic. Has since had more melanotic stools prior to admission. Hemoglobin 7.7 on arrival, dropped to 6.8 which improved with 1 unit transfusion. ? I initially discussed case with Dr. Mello prior to admission, recommended interventional approach with advanced GI at tertiary facility. Currently on [facility] waitlist. ? However, patient is feeling better during hospital course, but melanotic stools still present. Hemoglobin however stable, currently 8.5. As such, I again discussed with Dr. Mello who stated he could attempt EGD with bear claw clipping of duodenal ulcer. Recommended patient could stay at her facility if stable. ? Follow-up repeat H/H at 3 PM today. ? N.p.o. at midnight for possible EGD in the morning. ? Continue IV Protonix 40 mg twice daily, sucralfate with meals, misoprostol 200 mcg every 6 hours. ? Currently on DAPT for recent NSTEMI with stents, misoprostol to mitigate this. ? Transfuse pRBC if hemoglobin less than 8 given recent NSTEMI with stents. Received additional 1 unit PRBC with this goal. #HFrEF #CAD s/p stents ? Patient recently had NSTEMI with 1 stent placed recently on 03-23. As such, will continue DAPT as high risk for in-stent thrombosis. ? Hold home GDMT Coreg, irbesartan, Farxiga, spironolactone in the setting of GI bleed. ? Cardiology consulted, pending further recommendations. #Hypothyroidism ? Continue home levothyroxine 100 mcg. TFT stable. #BPH ? Resume home tamsulosin. Full code DVT prophylaxis: SCDs
[2025-03-11] MEDS: SODIUM CHLORIDE 0.9% 10ML VIAL 8 ML IV (20:21)
[2025-03-11] MEDS: ATORVASTATIN 40MG TABLET 40 MG PO (20:22)
[2025-03-11] MEDS: TAMSULOSIN 0.4MG CAPSULE 0.8 MG PO (20:22)
[2025-03-11 20:23] LABS: POC Glucose,Bedside 85 (70-110)
[2025-03-12] VITALS (17 sets, daily range): BP systolic 109–141; BP diastolic 43–72; PULSE 60–76; RESP 14–20; TEMP 36.4–37; O2SAT 96–100; BMI 40.6
--- NOTE | 2025-03-12 04:24 | PC.NURSE ---
Pt A&O x4. Pt is on RA. Pt wound on Left foot is covered w/ a mepilex. SCDS in place. Pt has been NPO since MN. Pt has had no acute changes this shift. Pt medicated per OCT. Pt not voicing any concerns at this time. Pt resting w/ call light in reach. Plan of care ongoing.
[2025-03-12 05:21] LABS: POC Glucose,Bedside 85 (70-110)
[2025-03-12] MEDS: LEVOTHYROXINE 50MCG (0.05MG) TAB 50 MCG PO (06:09)
[2025-03-12] MEDS: SUCRALFATE 1GM TABLET 1 GM PO ×4 (06:09→21:26)
[2025-03-12 07:35] LABS: Hematocrit 27.7 % (42.0-52.0); Hemoglobin 8.6 g/dL (14.1-18.0); Immature Granulocytes % 1.4 %; Mean Corpuscular HGB Conc 31.0 g/dL (31.8-35.4); Mean Corpuscular Hemoglobin 28.9 pg (27.0-31.2); Mean Corpuscular Volume 93.0 fl (80-94); Nucleated Red Blood Cells % 0 %; Platelet Count 335 K/mm3 (142-424); Red Blood Count 2.98 M/mm3 (4.60-6.20); Red Cell Distribution Width-SD 52.3 fL; White Blood Count 7.8 K/mm3 (4.8-10.8)
[2025-03-12 07:48] LABS: Alanine Aminotransferase 13 U/L (12-78); Albumin Level 3.4 g/dl (3.5-5.0); Albumin/Globulin Ratio 1.3 (1.1-1.8); Alkaline Phosphatase 83 U/L (38-126); Anion Gap 16.0 mEq/L (5-15); Aspartate Amino Transferase 26 U/L (17-59); Bilirubin,Total 0.6 mg/dl (0.2-1.3); Blood Urea Nitrogen 18 mg/dl (9-20); Calcium 8.2 mg/dl (8.4-10.2); Carbon Dioxide 21 mmol/L (22.0-30.0); Chloride 104 mmol/L (98-107); Creatinine Clearance Estimated 66 mL/min (50-200); Creatinine,Serum 1.60 mg/dl (0.66-1.25); Estimated Glomerular Filt Rate 42 ml/min (>60); GFR (African American) 51 ML/MIN (>60); Globulin 2.7 g/dL (1.3-3.2); Glucose 81 mg/dl (74-100); Potassium 4.0 mmoL/L (3.5-5.1); Sodium 137 mmol/L (136-145); Total Protein,Serum 6.1 g/dl (6.3-8.2)
[2025-03-12] MEDS: CLOPIDOGREL 75MG TAB 75 MG PO (08:20)
[2025-03-12] MEDS: ASPIRIN EC 81MG TABLET 81 MG PO (08:21)
[2025-03-12] MEDS: FAMOTIDINE 20MG/2ML VIAL 20 MG IV (08:21)
[2025-03-12] MEDS: PANTOPRAZOLE 40MG VIAL 40 MG IV ×2 (08:21→21:25)
[2025-03-12] MEDS: SODIUM CHLORIDE 0.9% 10ML VIAL 8 ML IV (08:28)
[2025-03-12] MEDS: POLYETHYLENE GLYCOL 3350 17 GM PACKET PO (08:28)
[2025-03-12] MEDS: FUROSEMIDE 20MG TABLET 20 MG PO (10:14)
--- NOTE | 2025-03-12 10:17 | SW/DCPLANNER ---
PTOT stated patient as independent, no needs at this time.
--- NOTE | 2025-03-12 10:17 | HMH.PTEV ---
Physical Therapy Evaluation Rehab PT IP Evaluation Start: 03/12/25 09:53 Freq: ONCE Status: Active Protocol: Document 03/12/25 10:04 MARGI (Rec: 03/12/25 10:16 MARGI [id number]) Subjective/History History History Per H&P: Mr. Moody a 79-year-old male who has significant lower leg lymphedema chronic uses a walker to get around. He recently has had stents placed during cardiac catheterization due to significant cardiovascular disease. He has had this also done in the past. Patient remains on aspirin and Plavix because of this.. Patient also has history of GI bleed with several procedures that have been done. He began to have black stools today came into the emergency room found to be lower than his normal hemoglobin of 9 received 1 unit in the ER. Patient remained stable in the emergency room. The ER doctor talked with our surgery and gastroenterology that this patient's extensive history required more than he could receive here. And suggest that he be transferred. Emergency room physician noted to me that the hospitals in [place] were on divert.. He was able to get a hold of the [facility] that would accept him but the bed was not ready. The hospital in [place] said to expect at least a 24-hour delay. Following hospital policy after 4-1/2 hours in the ER patient will be admitted to the floor. Patient is stable at this time but will continue him on continuous teletypesetter monitor. Due to the possibility of surgery will only keep him on a clear liquid diet at this time. Patient has been placed on 2 types of medication to decrease stomach acids at this time to try to prevent any more bleed. Plavix and aspirin are on hold. And during my exam the patient is alert oriented actually has some pinkness to his face and appears to be in no distress. Will place the patient on the floor continue to monitor him I have personally spoke with the lab personnel we will keep 2 units of blood on hold. Once he has been on the floor for a while we will recheck his H&H with his cardiac history the question is us to transfuse if below 7 or if it is below 8. At the present time he is in no distress so we will hold on any transfusion as his last hemoglobin was 7.4. Nursing personnel on the floor are aware of the fact that he is to be transferred we will continue to follow -up with the [facility] as needed to expedite his departure. Subjective Subjective PLOF: IND with use of RW. One fall in past 30 days. Still working. HOME: Lives home alone in a single-story home with no JOSTIN. ASSIST: None reported. New diagnosis of No cancer in past 12 months? [facility] How much help from another person do you currently need... Turning from your None back to your side while in a flat bed without using bedrails? Moving from lying on None back to sitting on the side of a flat bed without using bedrails? Moving to and from a None bed to a chair ( including a wheelchair)? Standing up from a None chair using your arms? (e.g., wheelchair, bedside chair) Walking in hospital A little room? Climbing 3-5 steps A little with a railing? Mobility Score 22 Mobility Level [place] [id number] Walk 25 feet or more Mobility Calculator Rehab PT IP Eval Objective Appearance Patient Behavior Appropriate,Cooperative Patient Orientation Person,Place,Situation Difficulty following none instructions Speech Pattern Clear Ambulation Patient Able to Yes Ambulate Ambulation Observation IP General Gait No Deviations/Normal Pattern Observation Ambulation Distance 25 (feet) Ambulation Assistive Rolling Walker Device Ambulation Ability Supervision/Stand by Balance Ability to Arise Able, uses arms to help Sitting Balance Steady, safe Standing Balance Steady, wide stance Dynamic Sitting Good Balance Ability Dynamic Standing Good Balance Ability Transfers Bed Transfer Ability Independent Sit to Stand Bed Independent Transfer Ability Rehab PT IP prob,goals,plan Problems Date of Evaluation: 03/12/25 Rehab Potential Rehab Potential Innapropriate for Skilled Therapy Discharge Plan PT Discharge Plan Pt most appropriate to d/c home when deemed medically necessary d/t current level of mobility and home set-up . Pt not appropriate for skilled acute care PT at this time d/t pt?s mobility being at baseline. Eval Complexity Eval Charge Codes 68936 - Moderate Complexity PHYSICIAN CERTIFICATION: I certify the specified therapy services for Riki Mckeon are required, authorized, and reviewed every 30 days.
[2025-03-12 10:20] LABS: Magnesium 1.9 mg/dl (1.6-2.3)
--- NOTE | 2025-03-12 10:37 | EXP.CARD.CON ---
History of Present Illness History of Present Illness Consult date: 03/12/25 Requesting physician: Eliseo Jameson Consult reason: known to you Chief complaint: GI bleed History of present illness: 79-year-old white male admitted through the emergency department for GI bleed. Recently discharged last week after coronary artery stenting and APC ablation of angiodysplasia as well as placement of an ulcer in the second portion of duodenum due to GI bleed.. Patient has felt weak since discharge last week which is a change from his baseline. Patient has noticed some bloody diarrhea over the last week. After admission this time he has received a unit of blood and is feeling better. Cardiology consulted regarding necessity of DAPT therapy in light of recent coronary stenting. Consideration of transfer to tertiary center due to the patient's complexity was undertaken and patient was on the waiting list at [facility] however they have been unable to accommodate him thus far therefore special device has been ordered and will be used during EGD later this week here at [facility] by Dr. Mello. [facility] Disclaimer: The information contained in this section may have been updated after the patient was seen, as this information can be updated by other users. Medical History (Updated 03/12/25 @ 13:34 by ELEN Holt) Cardiovascular disease Bilateral lower leg cellulitis Lymphedema of both lower extremities Chronic acquired lymphedema UGIB (upper gastrointestinal bleed) PUD (peptic ulcer disease) Duodenitis Nausea and vomiting Nausea Encounter for laboratory testing for COVID-19 virus Diabetes mellitus Gastroenteritis and colitis, viral Dehydration PICC (peripherally inserted central catheter) in place Diabetic foot Multiple drug resistant organism (MDRO) culture positive Near syncope Cellulitis, leg Ingrowing Toenail Callus of foot Onychoincurvatum Onychodystrophy Pain around toenail, left foot Ingrowing Toenail Cellulitis of right leg Arthritis PAD (peripheral artery disease) HTN (hypertension), benign Heart murmur T2DM (type 2 diabetes mellitus) BPH (benign prostatic hyperplasia) Peripheral vascular disease Surgical History Hx of colonoscopy History of total left hip replacement Family History Other Cancer Heart attack Social History Smoking Status: Never smoker alcohol intake: never substance use type: denies use current occupational status: retired Travel in the last 8 weeks?: None household members: none housing: house current occupation: [employer] current occupational exposures/hazards: No caffeine: Yes Review of Systems Review of Systems Review of systems:: pertinent systems reviewed and negative unless documented below *Cardiovascular Cardiovascular: Denies chest pain and Reports dyspnea on exertion *Respiratory Respiratory: Reports dyspnea on exertion *Gastrointestinal Gastrointestinal: Reports loose stools and Reports melena *Neurologic Neurologic: Reports as per HPI Exam Data for Last 24 hours Vital signs and Labs for Last 24 Hours: Temp Pulse Resp BP Pulse Ox O2 Del Method 97.6 F 66 19 139/66 99 Room Air 03/12/25 08:00 03/12/25 08:00 03/12/25 08:00 03/12/25 08:00 03/12/25 08:00 03/12/25 08:00 Laboratory Results - last 24 hr 03/09/25 09:38: Crossmatch (AHG) See Detail 03/11/25 15:40: POC Glucose 93 03/11/25 17:40: Hgb 8.6 L, Hct 26.6 L 03/11/25 20:16: POC Glucose 85 03/12/25 05:12: POC Glucose 85 03/12/25 06:24: WBC 7.8, RBC 2.98 L, Hgb 8.6 L, Hct 27.7 L, MCV 93.0, MCH 28.9, MCHC 31.0 L, RDW 16.1, Plt Count 335, MPV 8.9, Neut % (Auto) 65.5, Lymph % (Auto) 19.2, [place] % (Auto) 8.5, Eos % (Auto) 4.8, Baso % (Auto) 0.6, Neut # (Auto) 5.1, Lymph # (Auto) 1.5, [place] # (Auto) 0.7, Eos # (Auto) 0.4, Baso # (Auto) 0.1, Sodium 137, Potassium 4.0, Chloride 104, Carbon Dioxide 21 L, Anion Gap 16.0 H, BUN 18 D, Creatinine 1.60 H, Estimated Creat Clear 66, Estimated GFR 42 L, Est GFR ( Amer) 51 L, Glucose 81, Calcium 8.2 L, Magnesium 1.9, Total Bilirubin 0.6, AST 26, ALT 13, Alkaline Phosphatase 83, Total Protein 6.1 L, Albumin 3.4 L, Globulin 2.7, Albumin/Globulin Ratio 1.3 I & O for Last 24 hours: Intake & Output 03/09/25 03/10/25 03/11/25 03/12/25 11:59 11:59 11:59 11:59 Intake Total 910 / 910 1380 / 1380 600 / 600 Output Total 350 / 450 1070 / 1070 2034 / 2034 Balance 560 / 460 310 / 310 -1435 / -1435 Weight 264 lb 262 lb 9.6 oz 262 lb 9.481 oz 268 lb 6.4 oz Constitutional Constitutional: no acute distress *Routine Respiratory Exam Respiratory: Present CTA bilaterally; Absent rhonchi or wheezes *Routine Cardiovascular Exam Cardiovascular: Present RRR; Absent murmur, gallop or rubs *Routine Extremities Exam Extremities: Present edema *Routine Neurological Exam Neurological: Present alert, oriented X3 and CN II-XII intact Meds Home Medications and Allergies Home Medications ?Medication ?Instructions ?Recorded ?Confirmed ?Type tamsulosin 0.4 mg capsule 0.8 mg PO HS 04/04/18 03/10/25 History furosemide 20 mg tablet 20 mg PO MOWEFR 08/17/24 03/10/25 History valsartan 80 mg tablet 80 mg PO BID 09/04/24 03/10/25 History Held on 03/05/25. Instructions: due to soft BP, re-evaluate at follow-up with cardiology dapagliflozin propanediol 10 mg 10 mg PO DAILY #30 tabs 11/15/24 03/10/25 Rx tablet (Farxiga) carvedilol 12.5 mg tablet 12.5 mg PO BID #60 tabs 12/13/24 03/10/25 Rx Held on 03/05/25. Instructions: due to hypotension until follow-up with cardiology famotidine 40 mg tablet 40 mg PO HS 12/13/24 03/10/25 History nitroglycerin 0.4 mg sublingual 0.4 mg sublingual Q5M PRN chest 12/13/24 03/10/25 Rx tablet pain #25 tabs spironolactone 25 mg tablet 25 mg PO DAILY 12/13/24 03/10/25 History levothyroxine 50 mcg tablet 50 mcg PO DAILYDM 02/28/25 03/10/25 History atorvastatin 40 mg tablet 40 mg PO HS 30 days #30 tabs 03/02/25 03/10/25 Rx aspirin 81 mg tablet,delayed 81 mg PO DAILY 30 days #30 tabs 03/05/25 03/10/25 Rx release clopidogrel 75 mg tablet 75 mg PO DAILY #90 tabs 03/05/25 03/10/25 Rx pantoprazole 40 mg tablet,delayed 40 mg PO DAILY #30 tabs 03/05/25 03/10/25 Rx release New Prescriptions to Start Prescriptions: Allergies Allergy/AdvReac Type Severity Reaction Status Date / Time Antihistamines - Alkylamine Allergy Mild MADE SKIN Verified 01/15/25 14:51 (ANTIHISTAMINES - ALKYLAMINE) FEEL LIKE ON FIRE NSAIDS (Non-Steroidal AdvReac Severe kidney Verified 01/15/25 14:51 Anti-Inflamma failure Assessment and Plan *Assessment and plan (1) Melena: Status: Acute Category: Medical Code(s): K92.1 - Melena (2) Acute blood loss anemia: Status: Acute Category: Medical Code(s): D62 - Acute posthemorrhagic anemia (3) Acute GI bleeding: Status: Acute Category: Medical Code(s): K92.2 - Gastrointestinal hemorrhage, unspecified (4) Anemia: Status: Acute Qualifiers: Anemia type: iron deficiency Iron deficiency anemia type: chronic blood loss Qualified Code(s): D50.0 - Iron deficiency anemia secondary to blood loss (chronic) Category: Medical Code(s): D64.9 - Anemia, unspecified (5) Cardiovascular disease: Status: Acute Category: Medical Code(s): I25.10 - Atherosclerotic heart disease of torres martinez coronary artery without angina pectoris (6) Hypertension: Status: Chronic Qualifiers: Hypertension type: unspecified Qualified Code(s): I10 - Essential (primary) hypertension Category: Medical Code(s): I10 - Essential (primary) hypertension (7) Peripheral arterial disease: Status: Acute Category: Medical Code(s): I73.9 - Peripheral vascular disease, unspecified Plan 1. Recurrent GI bleed -Hgb stable around 8.5 after 1 unit PRBC -waiting for special equipment to repeat EGD -still having melanotic stools 2. CAD -recent 3 JAMIL to Cx and RCA, 03/05/2025. Will reduce DAPT to just plavix due to GI bleed. -clinically stable 3. HFrEF -Echo, 02/2025, EF 40-45% with moderate hypokinesis of the septal, anteroseptal, inferoseptal and apical LV [place] 4. CKD -Cr 1.6, GFR 39 5. Chronic bilateral lower extremity lymphedema 6. Obesity 7. PAD of bilateral LE's on Abd CTA with runoff, 10/2023, medical therapy at that time. -mild right GRAPHICS MANAGER, mod to severe right tibial/peroneal arteries, mod left tibial, anterior tibial and peroneal arteries EGD per Dr. Mello Stop aspirin and continue plavix Stable from cardiac standpoint with No plans for cardiac procedures. Addendum: 2 PM Pt with complaint of chest pain. Slowly resolved with 2 SL NTG but with susequent drop in systolic BP into the high 60's/low 70's which responded quickly with IVF and supine positioning. EKG appears junctional at [address] elevation in leads II with ST depression in V2. This was resolved on repeat EKG 37 min later. BP has improved to [address]iscuss[address] with Dr. Conway and will continue conservative management with recommendations to keep the Hgb > 9.5.
--- NOTE | 2025-03-12 10:46 | CT_ITS ---
FINAL REPORT CLINICAL HISTORY: With runoff, non healing ulcers FINDINGS: CT ABDOMEN, CT PELVIS, CTA ABDOMEN, CTA PELVIS AND CTA LOWER EXTREMITY RUNOFF COMPARISON: 09/04/2024 TECHNIQUE: Thin section axial CT with IV contrast supplemented with 3D MIP reconstruction under CT Angiogram protocol This study was performed with techniques to keep radiation doses as low as reasonably achievable, (ALARA). Individualized dose reduction techniques using automated exposure control or adjustment of mA and/or kV according to the patient''s size were employed. FINDINGS: CT ANGIOGRAM ABDOMEN AND PELVIS: Mild celiac stenosis is seen of 20-30%. SMA, NEY and right renal artery are widely patent. Left renal artery demonstrates 40% stenosis. Iliac arteries are widely patent. CTA RIGHT LOWER EXTREMITY: The femoral and popliteal vessels showed no significant stenosis or occlusion. There is three-vessel runoff of the mid calf. Posterior tibial artery is occluded at the level of the ankle. Dorsalis pedis is patent. CTA LEFT LOWER EXTREMITY: The femoral and popliteal vessels show no significant stenosis or occlusion. There is three-vessel runoff to the mid calf. Pedal vessels are patent. There is soft tissue swelling and thickening of the left foot. Abdomen: Solid abdominal organs are grossly unremarkable. No bowel obstruction is seen. There is no free fluid or free air. Pelvis: Pelvic bowel loops are unremarkable. Appendix is normal. No mass or fluid collection is seen. IMPRESSION: No significant arterial inflow or outflow disease of the lower extremities Mild infrapopliteal disease as above. Reviewed, Interpreted and Dictated by Shankar Willis MD Transcribed by Zully Medina Authenticated and [facility]
--- NOTE | 2025-03-12 11:11 | HMH.ITSTN ---
Addendum entered by Iram Carney Registered Respiratory Therapist 03/12/25 11:12: current IV is non-functioning & we cannot use for CT with contrast Original Note: called 2nd floor & asked for RN to come start new IV
--- NOTE | 2025-03-12 12:24 | PC.NURSE ---
PT ARRIVED BACK TO THE FLOOR FROM CT AT 1157. ELECTRICAL INSTRUMENT MAKER ASKED FOR NURSE TO COME TO ROOM B/C PT STATED HE WAS FEELING DIZZY. WHEN STAFF ARRIVED TO ROOM PT'S WAS SITTING UP IN THE WHEELCHAIR UNABLE TO RESPOND. URINARY INCONTINENCE NOTED. MANUAL BP 80/30. HR 69. O2 SATURATION 97% ON RA. NOTIFIED HOSPITALIST AND SOON HE ARRIVED TO PT'S ROOM PT WAS RESPONDING AND FOLLOWING COMMANDS. PT STATED HE STILL FELT DIZZY. FSBS 85. PT WAS ABLE TO DRINK A CUP OF ORANGE JUICE. EKG, H&H, 500 ML IVF BOLUS ORDERED. 1206 LAB WAS AT BEDSIDE. BP 92/43. HR 69. O2 SATURATION 95% ON RA. PT WAS ASSISTED BACK TO BED. WILL CONTINUE TO MONITOR.
[2025-03-12 12:25] LABS: POC Glucose,Bedside 85 (70-110)
[2025-03-12 12:26] LABS: Hematocrit 27.3 % (42.0-52.0); Hemoglobin 8.9 g/dL (14.1-18.0)
[2025-03-12] MEDS: IOPAMIDOL-370 (76%);100ML BOTTLE 120 ML IV (12:30)
[2025-03-12] MEDS: 0.9 % SODIUM CHLORIDE 50 ML VIAL IV (12:30)
[2025-03-12] MEDS: SODIUM CHLORIDE 0.9% 10ML SYR (RAD ONLY) 10 ML IV (12:30)
[2025-03-12] MEDS: BELLADONNA ALKALOIDS 60 ML ML PO (13:26)
[2025-03-12] MEDS: NITROGLYCERIN 0.4MG SL TABLET 0.4 MG SL ×2 (13:33→13:40)
--- NOTE | 2025-03-12 14:04 | ECG_ITS ---
APPROVED REPORT Exam: Resting ECG HR:53 bpm ECG Measurements Heart Rate 53 AXES OH 143 P 256 QRSd 125 QRS 2 QT 487 T 38 QTc 469 Conclusion ECTOPIC ATRIAL BRADYCARDIA WITH OCCASIONAL SUPRAVENTRICULAR PREMATURE COMPLEXES POSSIBLE RIGHT VENTRICULAR CONDUCTION DELAY [RSR (QR) IN V1/V2] MODERATE ST DEPRESSION [0.05+ mV ST DEPRESSION] PROLONGED QT INTERVAL ABNORMAL ECG Marked artifact noted UNCONFIRMED REPORT Electronically signed by : Gasper Montana MD 03/14/2025 16:17:29
[2025-03-12 14:07] LABS: Troponin I 0.07 ng/ml (0.00-0.034)
[2025-03-12] MEDS: MORPHINE 2MG/ML SYRINGE 2 MG IV (14:20)
[2025-03-12] MEDS: METOPROLOL TARTRATE 25MG TABLET 12.5 MG PO ×2 (14:50→21:26)
--- NOTE | 2025-03-12 14:58 | P.PN_ITS ---
Subjective *Date: 03/12/25 *Time: 14:58 Interval history: Patient readmitted with acute upper GI bleeding. Today, the patient did have chest pain and cardiology seen to rule out cardiac etiology. The patient's hemoglobin hematocrit are stable at this point with hemoglobin 8.9 and hematocr it 27.3. On admission on 03/09 his hemoglobin hematocrit were 6.8 and 21.6. The patient had presented earlier this month with hematemesis and melena and again had a duodenal ulcer second portion of duodenum with visible clot and visible heme and had APC ablation and forced coagulation with Endo Clip placement. Exam Data for Last 24 hours Vital signs and Labs for Last 24 Hours: Temp Pulse Resp BP Pulse Ox O2 Del Method 97.6 F 74 20 131/66 97 Room Air 03/12/25 12:00 03/12/25 12:00 03/12/25 12:00 03/12/25 12:00 03/12/25 12:00 03/12/25 13:00 Laboratory Results - last 24 hr 03/09/25 09:38: Crossmatch (AHG) See Detail 03/11/25 15:40: POC Glucose 93 03/11/25 17:40: Hgb 8.6 L, Hct 26.6 L 03/11/25 20:16: POC Glucose 85 03/12/25 05:12: POC Glucose 85 03/12/25 06:24: WBC 7.8, RBC 2.98 L, Hgb 8.6 L, Hct 27.7 L, MCV 93.0, MCH 28.9, MCHC 31.0 L, RDW 16.1, Plt Count 335, MPV 8.9, Neut % (Auto) 65.5, Lymph % (Auto) 19.2, [place] % (Auto) 8.5, Eos % (Auto) 4.8, Baso % (Auto) 0.6, Neut # (Auto) 5.1, Lymph # (Auto) 1.5, [place] # (Auto) 0.7, Eos # (Auto) 0.4, Baso # (Auto) 0.1, Sodium 137, Potassium 4.0, Chloride 104, Carbon Dioxide 21 L, Anion Gap 16.0 H, BUN 18 D, Creatinine 1.60 H, Estimated Creat Clear 66, Estimated GFR 42 L, Est GFR ( Amer) 51 L, Glucose 81, Calcium 8.2 L, Magnesium 1.9, Total Bilirubin 0.6, AST 26, ALT 13, Alkaline Phosphatase 83, Total Protein 6.1 L, Albumin 3.4 L, Globulin 2.7, Albumin/Globulin Ratio 1.3 03/12/25 11:56: POC Glucose 85 03/12/25 12:20: Hgb 8.9 L, Hct 27.3 L, Troponin I 0.07 H I & O for Last 24 hours: Intake & Output 03/09/25 03/10/25 03/11/25 03/12/25 23:59 23:59 23:59 23:59 Intake Total 250 / 250 1400 / 1440 1240 / 1240 Output Total 0 / 200 700 / 700 1770 / 2170 985 / 985 Balance 250 / 50 700 / 740 -530 / -930 -985 / -985 Weight 259 lb 12.8 oz 262 lb 9.6 oz 262 lb 9.481 oz 268 lb 6.4 oz Assessment and Plan *Assessment and plan (1) Melena: Status: Acute Category: Medical Code(s): K92.1 - Melena (2) Acute blood loss anemia: Status: Acute Category: Medical Code(s): D62 - Acute posthemorrhagic anemia (3) Acute GI bleeding: Status: Acute Category: Medical Code(s): K92.2 - Gastrointestinal hemorrhage, unspecified Plan 1. Recurrent acute GI bleeding. The patient has had a duodenal ulcer identified in the second portion of duodenum on endoscopy in August 2024 and February 2025 and there was evidence of clot and visible heme on this most recent examination done less than 2 weeks ago. The patient had recurrent bleeding. He is on Plavix and baby aspirin. I do feel that both are risk factors and I had initially said that the baby aspirin was less of a risk factor but I think it is a combination. In regard to oral anticoagulants and Plavix in the setting of more severe upper gastrointestinal bleeding bleeding, sometimes we will even use reversing agents including platelets and DDAVP or recombinant factor VIIa. Certainly both Plavix and baby aspirin at this point should be held if cardiology is in agreement. We do restart these agents at 48 to 72 hours after hemostasis has been achieved. If it is okay with cardiology, I would hold these agents until we have provided good hemostasis and we will at this point use the bear claw. The bear claw is in over the scope clip system which provides high rates of hemostasis and lower rates of rebleeding then standard endoscopic therapy. These over the scope clips have generally been used in the setting of recurrent or refractory bleeding that cannot be controlled with standard measures. I have discussed this with the patient and family. I will plan EGD with over the scope bear claw closure of the ulcer tomorrow.
--- NOTE | 2025-03-12 15:43 | PC.NURSE ---
AT 1320 PT WAS REQUESTING NITRO FOR ANTERIOR CHEST PAIN THAT WAS NON RADIATING THAT PT WAS RATING PAIN 8/10. BP 87/43. HR 52. O2 SATURATION 95% ON RA. 1325 NOTIFIED HOSPITALIST (EKG AND GI COCKTAIL ORDERED). 1330 BP 103/61. PT RATING PAIN 8/10 AFTER TAKING GI COCKTAIL. PT REQUIRED 2 DOSES OF SL NITRO(FIRST DOSE @ 1333 PAIN 8/10. SECOND DOSE @ 1340 PAIN 4/10). 1345 HOSPITALIST AND CARDIOLOGY AT BEDSIDE. 1350 PT STARTED TO COMPLAIN OF DIZZINESS. MANUAL BP 70/40. HOSPITALIST ORDERED FOR PT TO COMPLETE IVF BOLUS FROM EPISODE PRIOR. 1353 BP 85/51 HR 54. 1357 BP 118/46. 1400 CARDIOLOGY ORDERED FOR A REPEAT EKG. 1405 BP 122/54 HR 49. 1420 PT WAS STILL COMPLAINING OF CHEST PAIN 4/10. CARDIOLOGY ORDERED FOR A ONE TIME DOSE OF MORPHINE 2 MG. HOSPITALIST ORDERED FOR MORPHINE TO BE GIVEN Q4H PRN. 1430 BP 121/76 HR 68. 1445 138/75 HR 69. PT WILL RECEIVE I UNIT OF PRBC'S PER CARDIOLOGY. NEW US GUIDED IV ACCESS NOTED TO HELDER. WILL CONTINUE TO MONITOR.
[2025-03-12] MEDS: 0.9 % SODIUM CHLORIDE 1000ML 500 ML 999 ML IV (16:00)
[2025-03-12 16:41] LABS: POC Glucose,Bedside 133 (70-110)
--- NOTE | 2025-03-12 19:55 | P.PN_ITS ---
Subjective *Date: 03/12/25 *Time: 19:55 Exam Data for Last 24 hours Vital signs and Labs for Last 24 Hours: Temp Pulse Resp BP Pulse Ox O2 Del Method 97.5 F L 69 16 125/43 L 99 Room Air 03/12/25 18:55 03/12/25 18:55 03/12/25 18:55 03/12/25 18:55 03/12/25 18:55 03/12/25 19:00 Laboratory Results - last 24 hr 03/09/25 09:38: Crossmatch (G) See Detail 03/11/25 20:16: POC Glucose 85 03/12/25 05:12: POC Glucose 85 03/12/25 06:24: WBC 7.8, RBC 2.98 L, Hgb 8.6 L, Hct 27.7 L, MCV 93.0, MCH 28.9, MCHC 31.0 L, RDW 16.1, Plt Count 335, MPV 8.9, Neut % (Auto) 65.5, Lymph % (Auto) 19.2, [place] % (Auto) 8.5, Eos % (Auto) 4.8, Baso % (Auto) 0.6, Neut # (Auto) 5.1, Lymph # (Auto) 1.5, [place] # (Auto) 0.7, Eos # (Auto) 0.4, Baso # (Auto) 0.1, Sodium 137, Potassium 4.0, Chloride 104, Carbon Dioxide 21 L, Anion Gap 16.0 H, BUN 18 D, Creatinine 1.60 H, Estimated Creat Clear 66, Estimated GFR 42 L, Est GFR ( Amer) 51 L, Glucose 81, Calcium 8.2 L, Magnesium 1.9, Total Bilirubin 0.6, AST 26, ALT 13, Alkaline Phosphatase 83, Total Protein 6.1 L, Albumin 3.4 L, Globulin 2.7, Albumin/Globulin Ratio 1.3 03/12/25 11:56: POC Glucose 85 03/12/25 12:20: Hgb 8.9 L, Hct 27.3 L, Troponin I 0.07 H 03/12/25 15:13: Blood Type A Positive, Antibody Screen Negative, Crossmatch (G) See Detail 03/12/25 16:29: POC Glucose 133 H I & O for Last 24 hours: Intake & Output 03/09/25 03/10/25 03/11/25 03/12/25 23:59 23:59 23:59 23:59 Intake Total 250 / 250 1400 / 1440 1240 / 1240 826 / 826 Output Total 0 / 200 700 / 700 1770 / 2170 1585 / 1585 Balance 250 / 50 700 / 740 -530 / -930 -759 / -759 Weight 117.843 kg 119.113 kg 119.11 kg 121.744 kg Constitutional Constitutional: no acute distress *Routine HEENT Exam Head: Present normocephalic Eye: Present EOMI and PERRL ENT: Present mucous membranes moist *Routine Neck Exam Neck: Present supple; Absent lymphadenopathy *Routine Respiratory Exam Respiratory: Present CTA bilaterally *Routine Cardiovascular Exam Cardiovascular: Present RRR *Routine Abdominal Exam Abdominal: Present soft and normoactive bowel sounds; Absent tenderness *Routine Extremities Exam Extremities: Absent cyanosis, clubbing or edema *Routine Skin Exam Skin: Present warm; Absent rash *Routine Neurological Exam Neurological: Present alert and oriented X3 Assessment and Plan *Assessment and plan (1) Acute blood loss anemia: Status: Acute Category: Medical Code(s): D62 - Acute posthemorrhagic anemia (2) Acute GI bleeding: Status: Acute Category: Medical Code(s): K92.2 - Gastrointestinal hemorrhage, unspecified Plan Riki Mckeon is a 79-year-old male with a medical history significant for duodenal ulcer, HFrEF, NSTEMI/CAD s/p stents, hypothyroidism, BPH who presented with 1 day onset of melanotic stools and was admitted for upper GI bleed pending transfer to [facility]. #Recurrent upper GI bleed #Acute on chronic anemia ? Recently underwent EGD with bleeding duodenal ulcer and the clipping 03/01/2025. Patient was discharged in stable condition. Apparently, patient had about large, strained bowel movement the day before admission which was melanotic. Has since had more melanotic stools prior to admission. Hemoglobin 7.7 on arrival, dropped to 6.8 which improved with 1 unit transfusion. ? I initially discussed case with Dr. Mello prior to admission, recommended interventional approach with advanced GI at tertiary facility. Currently on [facility] waitlist. ?Patient's hemoglobin has stabilized, improving. Currently 8.9. As such, I discussed with Dr. Mello who stated he could attempt EGD with bear claw clipping of duodenal ulcer. Recommended patient could stay at her facility if stable. ? Continue IV Protonix 40 mg twice daily, sucralfate with meals. Patient has episode of presyncope, discontinue misoprostol. No melanotic stools today. ? Cardiology consulted, recommended discontinuing aspirin and continue Plavix 75 mg. ? Transfuse pRBC if hemoglobin less than 9 given recent NSTEMI with stents. Ordered additional 1 unit PRBC with this goal. Dr. Conway wants at least hem oglobin 9.5. ? N.p.o. at midnight for EGD in the morning. #Chest pain ? Patient had an episode of midsternal chest pain which improved with nitro 0.4 mg x 2. Pressures became soft thereafter, responded well to IV fluids. ? EKG showed slight ST elevation in lead II which improved with nitro. Troponin 0.07, improvement from 0.36 on admission. Had a C on 03/05/2025. ? Cardiology consulted, recommended hemoglobin threshold of minimum 9.5. Ordered additional 1 unit PRBC. ? Continuous cardiac telemetry. ? Started metoprolol tartrate 12.5 mg twice daily for angina. #HFrEF #CAD s/p stents ? Patient recently had NSTEMI with 1 stent placed recently on . ? Cardiology consulted, recommended discontinuing aspirin and continue Plavix 75 mg. ? Hold home GDMT Coreg, irbesartan, Farxiga, spironolactone in the setting of GI bleed. ? Cardiology consulted, pending further recommendations. #Hypothyroidism ? Continue home levothyroxine 100 mcg. TFT stable. #BPH ? Resume home tamsulosin. Full code DVT prophylaxis: SCDs
[2025-03-12 21:20] LABS: POC Glucose,Bedside 108 (70-110)
[2025-03-12] MEDS: TAMSULOSIN 0.4MG CAPSULE 0.4 MG PO (21:26)
[2025-03-12] MEDS: ATORVASTATIN 40MG TABLET 40 MG PO (21:26)
[2025-03-12] MEDS: SODIUM CHLORIDE 0.9% 10ML VIAL 10 ML IV (21:26)
[2025-03-12 22:17] LABS: Hematocrit 28.5 % (42.0-52.0); Hemoglobin 9.6 g/dL (14.1-18.0)
[2025-03-13] VITALS (18 sets, daily range): BP systolic 106–141; BP diastolic 52–72; PULSE 50–84; RESP 14–20; TEMP 36.4–37.9; O2SAT 92–100; BMI 39.9
--- NOTE | 2025-03-13 04:58 | PC.NURSE ---
Alert and oriented. No complaints throughout the night. Ulcer to left foot noted, dressing CDI. Received 1 unit of PRBC this shift, VSS. Room air. No bowel movements or bleeding noted this shift. No complaints of chest pain this shift. Call light in reach.
[2025-03-13] MEDS: SUCRALFATE 1GM TABLET 1 GM PO ×3 (06:02→21:02)
[2025-03-13] MEDS: LEVOTHYROXINE 50MCG (0.05MG) TAB 50 MCG PO (06:02)
[2025-03-13 06:20] LABS: POC Glucose,Bedside 102 (70-110)
[2025-03-13 06:22] LABS: Hematocrit 29.9 % (42.0-52.0); Hemoglobin 10.0 g/dL (14.1-18.0); Immature Granulocytes % 1.0 %; Mean Corpuscular HGB Conc 33.4 g/dL (31.8-35.4); Mean Corpuscular Hemoglobin 30.6 pg (27.0-31.2); Mean Corpuscular Volume 91.4 fl (80-94); Nucleated Red Blood Cells % 0 %; Platelet Count 355 K/mm3 (142-424); Red Blood Count 3.27 M/mm3 (4.60-6.20); Red Cell Distribution Width-SD 51.2 fL; White Blood Count 9.6 K/mm3 (4.8-10.8)
[2025-03-13 06:34] LABS: Alanine Aminotransferase 25 U/L (12-78); Albumin Level 3.4 g/dl (3.5-5.0); Albumin/Globulin Ratio 1.2 (1.1-1.8); Alkaline Phosphatase 80 U/L (38-126); Anion Gap 16.1 mEq/L (5-15); Aspartate Amino Transferase 165 U/L (17-59); Bilirubin,Total 0.7 mg/dl (0.2-1.3); Blood Urea Nitrogen 18 mg/dl (9-20); Calcium 8.3 mg/dl (8.4-10.2); Carbon Dioxide 22 mmol/L (22.0-30.0); Chloride 103 mmol/L (98-107); Creatinine,Serum 1.50 mg/dl (0.66-1.25); Estimated Glomerular Filt Rate 45 ml/min (>60); GFR (African American) 55 ML/MIN (>60); Globulin 2.8 g/dL (1.3-3.2); Glucose 91 mg/dl (74-100); Potassium 4.1 mmoL/L (3.5-5.1); Sodium 137 mmol/L (136-145); Total Protein,Serum 6.2 g/dl (6.3-8.2)
[2025-03-13 06:42] LABS: Creatinine Clearance Estimated 69 mL/min (50-200)
--- NOTE | 2025-03-13 08:34 | EXP.PN ---
Subjective *Date: 03/13/25 *Time: 18:31 Exam Data for Last 24 hours Vital signs and Labs for Last 24 Hours: Temp Pulse Resp BP Pulse Ox O2 Del Method 97.6 F 63 16 116/61 100 Room Air 03/13/25 04:00 03/13/25 04:00 03/13/25 04:00 03/13/25 04:00 03/13/25 04:00 03/13/25 06:35 Laboratory Results - last 24 hr 03/09/25 09:38: Crossmatch (AHG) See Detail 03/12/25 06:24: Magnesium 1.9 03/12/25 11:56: POC Glucose 85 03/12/25 12:20: Hgb 8.9 L, Hct 27.3 L, Troponin I 0.07 H 03/12/25 15:13: Blood Type A Positive, Antibody Screen Negative, Crossmatch (AHG) See Detail 03/12/25 16:29: POC Glucose 133 H 03/12/25 21:13: POC Glucose 108 03/12/25 22:10: Hgb 9.6 L, Hct 28.5 L 03/13/25 05:18: WBC 9.6, RBC 3.27 L, Hgb 10.0 L, Hct 29.9 L, MCV 91.4, MCH 30.6, MCHC 33.4, RDW 16.0, Plt Count 355, MPV 9.1, Neut % (Auto) 75.1, Lymph % (Auto) 12.9, [place] % (Auto) 7.6, Eos % (Auto) 2.9, Baso % (Auto) 0.5, Neut # (Auto) 7.2, Lymph # (Auto) 1.2, [place] # (Auto) 0.7, Eos # (Auto) 0.3, Baso # (Auto) 0.1, Sodium 137, Potassium 4.1, Chloride 103, Carbon Dioxide 22, Anion Gap 16.1 H, BUN 18, Creatinine 1.50 H, Estimated Creat Clear 69, Estimated GFR 45 L, Est GFR ( Amer) 55 L, Glucose 91, Calcium 8.3 L, Total Bilirubin 0.7, AST 165 H D, ALT 25 D, Alkaline Phosphatase 80, Total Protein 6.2 L, Albumin 3.4 L, Globulin 2.8, Albumin/Globulin Ratio 1.2 03/13/25 06:05: POC Glucose 102 I & O for Last 24 hours: Intake & Output 03/10/25 03/11/25 03/12/25 03/13/25 23:59 23:59 23:59 23:59 Intake Total 1400 / 1440 1240 / 1240 1076 / 1256 180 / 180 Output Total 700 / 700 1770 / 2170 1785 / 1785 300 / 300 Balance 700 / 740 -530 / -930 -709 / -529 -120 / -120 Weight 119.113 kg 119.11 kg 121.744 kg 119.408 kg Constitutional Constitutional: no acute distress *Routine HEENT Exam Head: Present normocephalic Eye: Present EOMI and PERRL ENT: Present mucous membranes moist *Routine Neck Exam Neck: Present supple; Absent lymphadenopathy *Routine Respiratory Exam Respiratory: Present CTA bilaterally *Routine Cardiovascular Exam Cardiovascular: Present RRR *Routine Abdominal Exam Abdominal: Present soft and normoactive bowel sounds; Absent tenderness *Routine Extremities Exam Extremities: Absent cyanosis, clubbing or edema *Routine Skin Exam Skin: Present warm; Absent rash *Routine Neurological Exam Neurological: Present alert and oriented X3 Assessment and Plan *Assessment and plan (1) Acute blood loss anemia: Status: Acute Category: Medical Code(s): D62 - Acute posthemorrhagic anemia (2) Acute GI bleeding: Status: Acute Category: Medical Code(s): K92.2 - Gastrointestinal hemorrhage, unspecified Plan Riki Mckeon is a 79-year-old male with a medical history significant for duodenal ulcer, HFrEF, NSTEMI/CAD s/p stents, hypothyroidism, BPH who presented with 1 day onset of melanotic stools and was admitted for upper GI bleed pending transfer to [facility]. #Recurrent upper GI bleed #Acute on chronic anemia #Duodenal ulcer ? Recently underwent EGD with bleeding duodenal ulcer and the clipping 03/01/2025. Patient was discharged in stable condition. Apparently, patient had about large, strained bowel movement the day before admission which was melanotic. Has since had more melanotic stools prior to admission. Hemoglobin 7.7 on arrival, dropped to 6.8 which improved with 1 unit transfusion. ? I initially discussed case with Dr. Mello prior to admission, recommended interventional approach with advanced GI at tertiary facility. Initially placed on [facility] waitlist. ? Patient's hemoglobin has stabilized, improving. Currently 10. As such, I discussed with Dr. Mello who stated he could attempt EGD with bear claw clipping of duodenal ulcer. Recommended patient could stay at her facility if stable. ? GI consulted, s/p EGD with bear clip placement over a duodenal ulcer. Patient tolerated procedure well. Hemoglobin stable at 10. Restarted misoprostol at a lower dose of 100 mcg every 6 hours due to previously presyncopal events with higher doses. ? Continue IV Protonix 40 mg twice daily, sucralfate with meals. No melanotic stools today. ? Cardiology consulted, will hold DAPT for today. Reevaluate in the morning. ? Transfuse pRBC if hemoglobin less than 9 given recent NSTEMI with stents. Dr. Conway wants at least hemoglobin 9.5. ? Follow-up CBC in the morning. #Fever ? Temperature 100.3 this afternoon. Patient does not endorse symptoms. ? Follow-up respiratory panel, UA, CXR. #Chest pain ? Patient had an episode of midsternal chest pain on 03/12/2025 which improved with nitro 0.4 mg x 2. Pressures became soft thereafter, responded well to IV fluids. ? EKG showed slight ST elevation in lead II which improved with nitro. Troponin 0.07, improvement from 0.36 on admission. Had a C on 03/05/2025. ? Cardiology consulted, recommended hemoglobin threshold of minimum 9.5. Since max transfused with 1 unit. ? Continuous cardiac telemetry. ? Continue metoprolol tartrate 12.5 mg twice daily for angina. #HFrEF #CAD s/p stents ? Patient recently had NSTEMI with 1 stent placed recently on . ? Cardiology consulted, recommended discontinuing aspirin and continue Plavix 75 mg. ? Hold home GDMT Coreg, irbesartan, Farxiga, spironolactone in the setting of GI bleed. ? Cardiology consulted, holding DAPT in the setting of GI bleed. Will reevaluate tomorrow Dr. Mello recommends holding for 3 days. #Hypothyroidism ? Continue home levothyroxine 100 mcg. TFT stable. #BPH ? Resume home tamsulosin. Full code DVT prophylaxis: SCDs
[2025-03-13] MEDS: METOPROLOL TARTRATE 25MG TABLET 12.5 MG PO ×2 (09:41→21:02)
[2025-03-13] MEDS: SODIUM CHLORIDE 0.9% 10ML VIAL 10 ML IV ×2 (09:42→21:02)
[2025-03-13] MEDS: PANTOPRAZOLE 40MG VIAL 40 MG IV ×2 (09:42→21:02)
--- NOTE | 2025-03-13 10:53 | P.PN_ITS ---
Subjective Subjective Date: 03/13/25 Time: 10:53 Principal diagnosis: GI bleed, CAD with recent stents Interval history: 79-year-old white male lying in bed in no acute distress. He did receive an additional unit of blood overnight with hemoglobin this morning around 10. He states he is feeling better with no recurrent chest pain overnight. Exam Data for Last 24 hours Vital signs and Labs for Last 24 Hours: Temp Pulse Resp BP Pulse Ox O2 Del Method 97.5 F L 63 18 119/57 L 98 Room Air 03/13/25 08:00 03/13/25 08:00 03/13/25 08:00 03/13/25 08:00 03/13/25 08:00 03/13/25 09:00 Laboratory Results - last 24 hr 03/09/25 09:38: Crossmatch (AHG) See Detail 03/12/25 11:56: POC Glucose 85 03/12/25 12:20: Hgb 8.9 L, Hct 27.3 L, Troponin I 0.07 H 03/12/25 15:13: Blood Type A Positive, Antibody Screen Negative, Crossmatch (AHG) See Detail 03/12/25 16:29: POC Glucose 133 H 03/12/25 21:13: POC Glucose 108 03/12/25 22:10: Hgb 9.6 L, Hct 28.5 L 03/13/25 05:18: WBC 9.6, RBC 3.27 L, Hgb 10.0 L, Hct 29.9 L, MCV 91.4, MCH 30.6, MCHC 33.4, RDW 16.0, Plt Count 355, MPV 9.1, Neut % (Auto) 75.1, Lymph % (Auto) 12.9, [place] % (Auto) 7.6, Eos % (Auto) 2.9, Baso % (Auto) 0.5, Neut # (Auto) 7.2, Lymph # (Auto) 1.2, [place] # (Auto) 0.7, Eos # (Auto) 0.3, Baso # (Auto) 0.1, Sodium 137, Potassium 4.1, Chloride 103, Carbon Dioxide 22, Anion Gap 16.1 H, BUN 18, Creatinine 1.50 H, Estimated Creat Clear 69, Estimated GFR 45 L, Est GFR ( Amer) 55 L, Glucose 91, Calcium 8.3 L, Total Bilirubin 0.7, AST 165 H D , ALT 25 D, Alkaline Phosphatase 80, Total Protein 6.2 L, Albumin 3.4 L, Globulin 2.8, Albumin/Globulin Ratio 1.2 03/13/25 06:05: POC Glucose 102 I & O for Last 24 hours: Intake & Output 03/10/25 03/11/25 03/12/25 03/13/25 11:59 11:59 11:59 11:59 Intake Total 910 / 910 1380 / 1380 600 / 600 1256 / 1256 Output Total 350 / 450 1070 / 1070 2034 / 2034 1200 / 1200 Balance 560 / 460 310 / 310 -1435 / -1435 56 / 56 Weight 262 lb 9.6 oz 262 lb 9.481 oz 268 lb 6.4 oz 263 lb 4 oz Progress Note: A&P Assessment and plan (1) Acute blood loss anemia: Status: Acute (2) Acute GI bleeding: Status: Acute Assessment and Plan Assessment and Plan for All Diagnoses:: 1. Recurrent GI bleed -Hgb stable around 10 after 2 unit PRBC -EGD today -still having melanotic stools 2. CAD -recent 3 JAMIL to Cx and RCA, 03/05/2025. Will hold DAPT for now to get bleeding to stop. -clinically stable 3. HFrEF -Echo, 02/2025, EF 40-45% with moderate hypokinesis of the septal, anteroseptal, inferoseptal and apical LV [place] 4. CKD -Cr 1.6, GFR 39 5. Chronic bilateral lower extremity lymphedema 6. Obesity 7. PAD of bilateral LE's on Abd CTA with runoff, 10/2023, medical therapy at that time. -mild right [employer]ATOR, mod to severe right tibial/peroneal arteries, mod left tibial, anterior tibial and peroneal arteries Holding DAPT due to GI bleed. Consider restarting plavix only when GI bleed has stopped. Discussed with Dr. Conway.
[2025-03-13 11:02] LABS: POC Glucose,Bedside 83 (70-110)
--- NOTE | 2025-03-13 11:14 | HMH.OTEV ---
OT Inpatient Evaluation Rehab OT IP Evaluation Start: 03/12/25 09:54 Freq: ONCE Status: Active Protocol: Document 03/13/25 11:09 JASPREET (Rec: 03/13/25 11:14 JASPREET [id number]) Rehab OT IP Assessment Subjective History Per HPI narrative: This is a 79-year-old male patient, with past medical history of CAD status post PCI, HFrEF, CKD, peptic ulcer disease, and GI bleeding, who is presenting to the emergency department today for evaluation of a fall and GI bleed. The patient was most recently admitted to our hospital in the beginning of January with GI bleeding as well as a myocardial infarction. He was comanaged by the hospitalist service, gastroenterology, and cardiology. During this admission he underwent percutaneous coronary intervention and had a successful stent placed in a diseased circumflex artery. He was continued on dual antiplatelet therapy following this procedure and at the time of discharge. At the same time the patient also was having hematemesis and melena at the time of admission. This was managed by Dr. Mello with gastroenterology. He underwent EGD and was found to have a duodenal ulcer in the second portion of the duodenum and underwent APC ablation, forced coagulation, and Endo Clip placement with excellent hemostasis on 03/01/2025. Since discharge, the patient states that he has felt weak for the last couple of days and as of this morning he has been unable to walk independently, which is a change from his baseline. Upon attempting to walk he did fall but did not hit his head and did not lose consciousness. He then began having bloody diarrhea. EMS was called to the scene and found streaks of bloody diarrhea trapsed across the house. The patient denies fevers, chills, and abdominal pain. Subjective They live pretty close to me. Pt supine in bed when therapy arrived. daughter present for session. pt agreed to OT eval. Pt orient x3. pt reported they live alone in apartment on first floor with no steps. pt reports using RW for FM. pt reports he still drives. pt reports they are ind in ADL and IADL. pt reports they have shower chair and no grab bars. pt reports they have 2 sons and daughter that can come and assist when needed. pt agreed to FM task. Pt went from supine to EOB with SBA. Pt then completed STS with RW with SBA. Pt demo good static standing balance . 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 Pt then sat back on EOB and went to supine position with SBA. Pt able to use UB strength to pull self up in bed. Pt left with call light and all other needs within reach and daughter present. Objective Patient Orientation Person,Place,Birthday Right Upper WFL Extremity Gross ROM Left Upper Extremity WFL Gross ROM Bed Mobility bed mobility-scooting,bed mobility - supine/sit Assist Level Supervision/Stand by Transfer Training Sit/Stand Transfer Assist Level Supervision/Stand by Chair Transfer Sit to/from Ambulatory Technique Chair Transfer Rolling Walker Assistive Devices Decrease in No Endurance Rehab OT IP prob,goals,plan Problems Date of Evaluation: 03/13/25 Rehab Potential Rehab Potential Innapropriate for Skilled Therapy Discharge Goals Commode/Toilet Grab Bars Transfer Assistive Devices Discharge Plan OT Discharge Plan At this time, pt is at baseline and would not benefit from skilled acute OT services while admitted at [facility]. Pt good to DC home with current set-up of home and level of care present if needed. Eval Complexity Eval Charge Codes 76993 - Moderate Complexity PHYSICIAN CERTIFICATION: I certify the specified therapy services for Riki Mckeon are required, authorized, and reviewed every 30 days.
--- NOTE | 2025-03-13 11:33 | EXP.ANES.CKL ---
[facility] Disclaimer: The information contained in this section may have been updated after the patient was seen, as this information can be updated by other users. Medical History (Updated 03/12/25 @ 13:34 by ELEN Holt) Cardiovascular disease Bilateral lower leg cellulitis Lymphedema of both lower extremities Chronic acquired lymphedema UGIB (upper gastrointestinal bleed) PUD (peptic ulcer disease) Duodenitis Nausea and vomiting Nausea Encounter for laboratory testing for COVID-19 virus Diabetes mellitus Gastroenteritis and colitis, viral Dehydration PICC (peripherally inserted central catheter) in place Diabetic foot Multiple drug resistant organism (MDRO) culture positive Near syncope Cellulitis, leg Ingrowing Toenail Callus of foot Onychoincurvatum Onychodystrophy Pain around toenail, left foot Ingrowing Toenail Cellulitis of right leg Arthritis PAD (peripheral artery disease) HTN (hypertension), benign Heart murmur T2DM (type 2 diabetes mellitus) BPH (benign prostatic hyperplasia) Peripheral vascular disease Surgical History Hx of colonoscopy History of total left hip replacement Family History Other Cancer Heart attack Social History Smoking Status: Never smoker alcohol intake: never substance use type: denies use current occupational status: retired Travel in the last 8 weeks?: None household members: none housing: house current occupation: [employer] current occupational exposures/hazards: No caffeine: Yes [facility] Anesthesia Checklist Patient Identification Patient Identification: Arm Band and Verbal (Name & ) Structural Data Admitted From: Inpatient Planned Operative Procedure/s: EGD Verified Documents: Surgical Consent NPO Status Verified Time NPO: 00:00 Chart Verification Results Verified: H & H Additional verifications Anesthesia Reactions: No Airway Assessment Mallampati Score:: Class II C-Spine Mobility Assessed: Yes TMJ Mobility Assessed: Yes Dentition: Edentulous Neurological Assessment Level of Consciousness: Awake, Alert and Appropriate Hx Seizures: No Numbness or tingling in extremities: No Anesthesia Plan Anesthesia Risk discussed: Yes Anesthesia Plan: Verified ASA Class: III Anesthesia Type: MAC
--- NOTE | 2025-03-13 12:05 | HMH.PROCNOTE ---
[facility] Procedure Note Date: 03/13/25 Time: 12:26 Procedure Note:: Upper Endoscopy Procedure Report: Esophagogastroduodenoscopy with Endo Clip removal and over the scope of Ovesco bear claw clip placement Endoscopost: Laron Mello II, MD Referring Physician: Gasper Montana M.D./Jeffrey Conway M.D. Date of Procedure: March 13, 2025 Equipment: Olympus GIF 190 standard upper endoscope Sedation: MAC sedation Indications: Mr. Mckeon is a 79-year-old gentleman with recurrent upper GI bleeding. The patient did have GI bleeding in August 2024 and had a duodenal ulcer at the junction of 2nd and 3rd portion of duodenum. He did have heater probe ablation and Endo Clip placement at that time. He had a recurrent bleed more recently this month and had repeat EGD on 03/01 showing duodenal ulcer and second portion just distal to the ampulla. There was clot and visible heme. This was treated with APC ablation, force coagulation and Endo Clip placement. The patient did return again with melena and acute GI blood loss. His hemoglobin on admission was 6.8. Today's hemoglobin is 10.0. He has been on PPI therapy and misoprostol. He has also been on Plavix and baby aspirin. The misoprostol was held because of side effects but this was resumed. I did have discussion with hospitalist about possible referral to tertiary center for interventional therapy (angiography versus surgery). We did order the Ovesco over the scope Endo Clip (i.e. bear claw ) for definitive treatment. Procedure: Prior to the procedure, a history and physical exam was performed, and patient's medications and allergies were reviewed. The risks, benefits and alternatives of the sedation and procedure were discussed with the patient. All questions were answered and informed consent was obtained. The patient was brought to the procedure room. Patient identification and proposed procedure were verified by the physician and the nurse. The patient was placed in a left lateral decubitus position and the scope was passed under direct vision. Throughout the procedure, the patient's blood pressure, pulse, and oxygen saturations were monitored continuously. The upper GI endoscopy was accomplished without difficulty. The patient tolerated the procedure well. Findings: The scope was passed directly into the upper esophagus and advanced to the third portion of the duodenum. The prior duodenitis and duodenal edema had completely resolved and there appeared to be healing of the duodenal ulcer which was along the medial wall just 2 to 3 cm distal to the ampulla. There was no visible vessel and the Endo Clip was in place. The Endo Clip was removed via snare and there was certainly a visible vessel in the ulcer base where the clip was removed. This was deemed the site of bleeding. The endoscope was then removed and Ovesco clip was then assembled (over the scope bear claw) and attached to the therapeutic endoscope. The scope was then advanced once again to the second portion of the duodenum where the ulcer and visible vessel were visualized directly. The ulcer/visible vessel was then suctioned into the endoscope and the bear claw/over the scope clip was deployed across and over the ulcer and visible vessel with the visible vessel in the central portion. This was felt to provide hemostasis. Upon withdrawal of the first portion of duodenum and duodenal bulb were normal. The scope was withdrawn through a normal pylorus into the stomach. There was no heme or blood in the stomach. There was a small hiatal hernia. The scope was then withdrawn into the esophagus. The remainder of the esophageal mucosa was normal. Impression: 1. Duodenal ulcer with visible vessel and base?(second portion 2 to 3 cm distal to ampulla on medial wall) status post over the scope Ovesco (11mm 6T bear claw) endoscopic clip placement Plan: I do feel that the larger clip will provide secure hemostasis. I will discuss the findings with the patient and family.
[2025-03-13] MEDS: ONDANSETRON 4MG/2ML VIAL 4 MG IV (13:01)
--- NOTE | 2025-03-13 16:53 | PC.NURSE ---
patient is a/ox4, remains on room air tolerating well. patient has had no c/o chest pain this shift. urinal at bedside. patient tolerating clear liquids. patient has rested for majority of the shift with RR even and unlabored. VSS. patient did c/o nausea after EGD, zofran given per OCT, patient stated nausea subsided. currently sitting up in bed, call light within reach, no further requests at this time.
[2025-03-13 17:12] LABS: POC Glucose,Bedside 80 (70-110)
[2025-03-13] MEDS: ACETAMINOPHEN 325MG TAB 650 MG PO (17:24)
--- NOTE | 2025-03-13 17:45 | PC.NURSE ---
SRNA reported temperature of 101.0 oral and 100.3 axillary, room temp decreased from 74 to 72 degrees, tylenol given per MAR. patient is asymptomatic and reports that he feels fine. rechecked temp after 30 mins and it is 98.1 orally. patient is sitting up in bed, call light within reach.
--- NOTE | 2025-03-13 18:31 | XR_ITS ---
PROCEDURE INFORMATION: Exam: XR Chest Exam date and time: 03/13/2025 8:38 PM Age: 79 years old Clinical indication: Fever; Additional info: Febrile TECHNIQUE: Imaging protocol: Radiologic exam of the chest. Views: 1 view. COMPARISON: CR XR CHEST PORTABLE 03/09/2025 9:57 AM FINDINGS: Lungs: Unremarkable. No consolidation. Pleural spaces: Unremarkable. No pleural effusion. No pneumothorax. Heart/Mediastinum: Unremarkable. No cardiomegaly. Bones/joints: Unremarkable. IMPRESSION: No acute findings.
[2025-03-13 19:05] LABS: Adenovirus,PCR Not Detected (NotDetected); Chlamydophila Pneumoniae, PCR Not Detected (NotDetected); Coronavirus 19, PCR Not Detected (NotDetected); Coronovirus HKU1,PCR Not Detected (NotDetected); Influenza A, PCR Not Detected (NotDetected); Influenza AH1, 2009 Not Detected (NotDetected); Influenza AH1, PCR Not Detected (NotDetected); Influenza AH3,PCR Not Detected (NotDetected); Influenza B, PCR Not Detected (NotDetected); Mycoplasma Pneumoniae, PCR Not Detected (NotDetected); Parainfluenza 1, PCR Not Detected (NotDetected); Parainfluenza 2, PCR Not Detected (NotDetected); Parainfluenza 3, PCR Not Detected (NotDetected); Parainfluenza 4, PCR Not Detected (NotDetected)
[2025-03-13] MEDS: TAMSULOSIN 0.4MG CAPSULE 0.4 MG PO (21:02)
[2025-03-13] MEDS: ATORVASTATIN 40MG TABLET 40 MG PO (21:02)
[2025-03-13 21:21] LABS: POC Glucose,Bedside 140 (70-110)
[2025-03-13 23:04] LABS: Microscopic, Urine URINE MICROSCOPIC (MICROSCOPIC)
[2025-03-13 23:11] LABS: Color,Urine YELLOW (Yellow); Glucose,Urine (UA) Negative (Negative); Ketones,Urine 1+ (Negative); Leukocyte Esterase,Urine Negative (Negative); PH,Urine 5.5 (5.0-8.5); Protein,Urine TRACE (Negative); Specific Gravity, Urine 1.025 (1.005-1.030); Urobilinogen,Urine 0.2 EU/dl (0.2)
[2025-03-13 23:19] LABS: Bilirubin,Urine 2+ (Negative)
[2025-03-14] VITALS: BP 105/53; PULSE 74; PULSE 75; RESP 16; TEMP 36.8; O2SAT 97
[2025-03-14 00:35] LABS: WBC,Urine Occasional #/hpf (0-3)
[2025-03-14 00:37] LABS: Bacteria,Urine 2+ /lpf; Squamous Epithelial Cell,Urine Occasional #/hpf (0-5); Uric Acid Crystals,Urine 1+ /lpf
[2025-03-14 04:00] VITALS: BP 138/66; PULSE 60; PULSE 93; RESP 16; TEMP 36.8; O2SAT 94; BMI 39.6
--- NOTE | 2025-03-14 04:37 | PC.NURSE ---
Alert and oriented. No complaints of pain this shift. Patient has slept well throughout shift. Able to tolerate drinking and eating with no issues. Lung sounds clear. Abdomen soft and nontender. Wound to left foot noted, dressing CDI. Uses urinal. Call light in reach.
[2025-03-14] MEDS: SUCRALFATE 1GM TABLET 1 GM PO ×2 (05:22→10:29)
[2025-03-14 05:42] LABS: POC Glucose,Bedside 121 (70-110)
[2025-03-14] MEDS: LEVOTHYROXINE 50MCG (0.05MG) TAB 50 MCG PO (06:44)
[2025-03-14 06:45] LABS: Hematocrit 31.1 % (42.0-52.0); Hemoglobin 9.9 g/dL (14.1-18.0); Immature Granulocytes % 1.1 %; Mean Corpuscular HGB Conc 31.8 g/dL (31.8-35.4); Mean Corpuscular Hemoglobin 29.7 pg (27.0-31.2); Mean Corpuscular Volume 93.4 fl (80-94); Nucleated Red Blood Cells % 0 %; Platelet Count 356 K/mm3 (142-424); Red Blood Count 3.33 M/mm3 (4.60-6.20); Red Cell Distribution Width-SD 54.6 fL; White Blood Count 13.0 K/mm3 (4.8-10.8)
[2025-03-14 06:54] LABS: Alanine Aminotransferase 28 U/L (12-78); Albumin Level 3.6 g/dl (3.5-5.0); Albumin/Globulin Ratio 1.3 (1.1-1.8); Alkaline Phosphatase 82 U/L (38-126); Anion Gap 17.0 mEq/L (5-15); Aspartate Amino Transferase 142 U/L (17-59); Bilirubin,Total 0.9 mg/dl (0.2-1.3); Blood Urea Nitrogen 15 mg/dl (9-20); Calcium 8.3 mg/dl (8.4-10.2); Carbon Dioxide 21 mmol/L (22.0-30.0); Chloride 102 mmol/L (98-107); Creatinine Clearance Estimated 57 mL/min (50-200); Creatinine,Serum 1.80 mg/dl (0.66-1.25); Estimated Glomerular Filt Rate 37 ml/min (>60); GFR (African American) 44 ML/MIN (>60); Globulin 2.8 g/dL (1.3-3.2); Glucose 97 mg/dl (74-100); Potassium 4.0 mmoL/L (3.5-5.1); Sodium 136 mmol/L (136-145); Total Protein,Serum 6.4 g/dl (6.3-8.2)
--- NOTE | 2025-03-14 07:41 | P.PN_ITS ---
Subjective *Date: 03/14/25 *Time: 07:41 Interval history: Patient very stable with no further GI bleeding and hemoglobin/hematocrit stable. Exam Data for Last 24 hours Vital signs and Labs for Last 24 Hours: Temp Pulse Resp BP Pulse Ox O2 Del Method 98.2 F 93 H 16 138/66 94 L Room Air 03/14/25 04:00 03/14/25 04:00 03/14/25 04:00 03/14/25 04:00 03/14/25 04:00 03/14/25 05:00 Laboratory Results - last 24 hr 03/09/25 09:38: Crossmatch (AHG) See Detail 03/13/25 10:55: POC Glucose 83 03/13/25 17:04: POC Glucose 80 03/13/25 18:58: Chlamy pneumoniae PCR Not detected, Adenovirus (PCR) Not detected, B. pertussis DNA (PCR) Not detected, Coronavirus OC43 (PCR) Not detected, Coronavirus HKU1 (PCR) Not detected, Coronavirus 229E (PCR) Not detected, SARS-CoV-2 (PCR) Not detected, Coronavirus NL63 (PCR) Not detected, Human Metapneumovir PCR Not detected, Influenza A (H1) PCR Not detected, Influ A (H1N1/09) PCR Not detected, Influenza A (H3) PCR Not detected, Influenza Type A (PCR) Not detected, Influenza Type B (PCR) Not detected, M. pneumoniae (PCR) Not detected, Parainfluenza 1 (PCR) Not detected, Parainfluenza 2 (PCR) Not detected, Parainfluenza 3 (PCR) Not detected, Parainfluenza 4 (PCR) Not detected, RSV (PCR) Not detected, Entero/Rhino (PCR) Not detected 03/13/25 21:14: POC Glucose 140 H 03/13/25 22:57: Urine Color Yellow, Urine Appearance Clear, Urine pH 5.5, Ur Specific [place] 1.025, Urine Protein Trace, Urine Glucose (UA) Negative, Urine Ketones 1+, Urine Blood Negative, Urine Nitrate Negative, Urine Bilirubin 2+ A, Urine Urobilinogen 0.2, Ur Leukocyte Esterase Negative, Urine RBC None, Urine WBC Occasional, Ur Squamous Epith Cells Occasional, Uric Acid Crystals 1+, Urine Bacteria 2+ 03/14/25 05:30: WBC 13.0 H D, RBC 3.33 L, Hgb 9.9 L, Hct 31.1 L, MCV 93.4, MCH 29.7, MCHC 31.8, RDW 16.7, Plt Count 356, MPV 9.2, Neut % (Auto) 77.6, Lymph % (Auto) 10.6, Mathews % (Auto) 8.3, Eos % (Auto) 2.0, Baso % (Auto) 0.4, Neut # (Auto) 10.1 H, Lymph # (Auto) 1.4, Mathews # (Auto) 1.1 H, Eos # (Auto) 0.3, Baso # (Auto) 0.1, Sodium 136, Potassium 4.0, Chloride 102, Carbon Dioxide 21 L, Anion Gap 17.0 H, BUN 15, Creatinine 1.80 H, Estimated Creat Clear 57, Estimated GFR 37 L, Est GFR ( Amer) 44 L, Glucose 97, Calcium 8.3 L, Total Bilirubin 0.9, AST 142 H, ALT 28, Alkaline Phosphatase 82, Total Protein 6.4, Albumin 3.6, Globulin 2.8, Albumin/Globulin Ratio 1.3 03/14/25 05:33: POC Glucose 121 H I & O for Last 24 hours: Intake & Output 03/11/25 03/12/25 03/13/25 03/14/25 23:59 23:59 23:59 23:59 Intake Total 1240 / 1240 1076 / 1256 420 / 600 180 / 180 Output Total 1770 / 2170 1785 / 1785 500 / 500 225 / 225 Balance -530 / -930 -709 / -529 -80 / 100 -45 / -45 Weight 262 lb 9.481 oz 268 lb 6.4 oz 263 lb 4 oz 261 lb 6.4 oz Constitutional Constitutional: no acute distress *Routine HEENT Exam Head: Present normocephalic Eye: Present EOMI and PERRL ENT: Present mucous membranes moist *Routine Neck Exam Neck: Present supple; Absent lymphadenopathy *Routine Respiratory Exam Respiratory: Present CTA bilaterally *Routine Cardiovascular Exam Cardiovascular: Present RRR *Routine Abdominal Exam Abdominal: Present soft and normoactive bowel sounds; Absent tenderness *Routine Extremities Exam Extremities: Absent cyanosis, clubbing or edema *Routine Skin Exam Skin: Present warm; Absent rash *Routine Neurological Exam Neurological: Present alert and oriented X3 Assessment and Plan *Assessment and plan (1) Duodenal ulcer with hemorrhage: Status: Acute Category: Medical Code(s): K26.4 - Chronic or unspecified duodenal ulcer with hemorrhage Plan 1. Duodenal ulcer with hemorrhage. The patient did have ulcer with visible vessel and over the scope bear claw clip should provide secure hemostasis. I would recommend resuming the Plavix tomorrow. Over the scope clips have generally been used in the setting of recurrent or refractory bleeding that cannot be controlled using through the scope endoscopic clips or to close fistulas, anastomotic leaks, acute perforations and to help secure endoscopic stents. Higher rates of hemostasis and lower rates of rebleeding were noted in a meta- analysis of studies comparing over the scope clips with standard endoscopic therapy for treatment of nonvariceal upper GI bleeding in patients at high risk for rebleeding.
[2025-03-14 08:00] VITALS: BP 119/56; PULSE 65; PULSE 80; RESP 17; TEMP 36.7; O2SAT 92
--- NOTE | 2025-03-14 08:29 | CA_ITS ---
FINAL REPORT CLINICAL HISTORY: pre syncope, dizziness, recent cardiac stents 03/05/25, HTN FINDINGS: RIGHT CAROTID: CCA PSV -110 cm/sec ICA PSV -170 cm/sec ICA/CCA PSV ratio -1.6. Comments: Mild plaque disease is noted. LEFTCAROTID: CCA PSV -131. cm/sec ICA PSV -175. cm/sec ICA/CCA PSV ratio -1.8. Comments: Mild plaque disease is noted. Antegrade flow is seen within the vertebral arteries. IMPRESSION: Carotid stenosis classified less than 50% Reviewed, Interpreted and Dictated by Shankar Willis MD Transcribed by Mehnaz Prabhakar Authenticated and [facility]
[2025-03-14] MEDS: SODIUM CHLORIDE 0.9% 10ML VIAL 10 ML IV (08:46)
[2025-03-14] MEDS: PANTOPRAZOLE 40MG VIAL 40 MG IV (08:46)
[2025-03-14] MEDS: METOPROLOL TARTRATE 25MG TABLET 12.5 MG PO (08:46)
--- NOTE | 2025-03-14 10:05 | EXP.DC.SUM ---
General Admission date:: 03/09/25 HPI HPI HPI: Mr. Moody a 79-year-old male who has significant lower leg lymphedema chronic uses a walker to get around. He recently has had stents placed during cardiac catheterization due to significant cardiovascular disease. He has had this also done in the past. Patient remains on aspirin and Plavix because of this.. Patient also has history of GI bleed with several procedures that have been done. He began to have black stools today came into the emergency room found to be lower than his normal hemoglobin of 9 received 1 unit in the ER. Patient remained stable in the emergency room. The ER doctor talked with our surgery and gastroenterology that this patient's extensive history required more than he could receive here. And suggest that he be transferred. Emergency room physician noted to me that the hospitals in [place] were on divert.. He was able to get a hold of the [facility] that would accept him but the bed was not ready. The hospital in [place] said to expect at least a 24-hour delay. Following hospital policy after 4-1/2 hours in the ER patient will be admitted to the floor. Patient is stable at this time but will continue him on continuous library monitor. Due to the possibility of surgery will only keep him on a clear liquid diet at this time. Patient has been placed on 2 types of medication to decrease stomach acids at this time to try to prevent any more bleed. Plavix and aspirin are on hold. And during my exam the patient is alert oriented actually has some pinkness to his face and appears to be in no distress. Will place the patient on the floor continue to monitor him I have personally spoke with the lab personnel we will keep 2 units of blood on hold. Once he has been on the floor for a while we will recheck his H&H with his cardiac history the question is us to transfuse if below 7 or if it is below 8. At the present time he is in no distress so we will hold on any transfusion as his last hemoglobin was 7.4. Nursing personnel on the floor are aware of the fact that he is to be transferred we will continue to follow-up with the [facility] as needed to expedite his departure. Hospital Course Hospital Course Hospital Course: Riki Mckeon is a 79-year-old male with a medical history significant for duodenal ulcer, HFrEF, NSTEMI/CAD s/p stents, hypothyroidism, BPH who presented with 1 day onset of melanotic stools and was admitted for upper GI bleed pending transfer to [facility]. #Recurrent upper GI bleed #Acute on chronic anemia #Duodenal ulcer ? Recently underwent EGD with bleeding duodenal ulcer and the clipping 03/01/2025. Patient was discharged in stable condition. Apparently, patient had about large, strained bowel movement the day before admission which was melanotic. Has since had more melanotic stools prior to admission. Hemoglobin 7.7 on arrival, dropped to 6.8 which improved with 1 unit transfusion. ? I initially discussed case with Dr. Mello prior to admission, recommended interventional approach with advanced GI at tertiary facility. Initially placed on [facility] waitlist. ? Patient's hemoglobin has stabilized, improving. As such, I discussed with Dr. Mello who stated he could attempt EGD with bear claw clipping of duodenal ulcer. Recommended patient could stay at her facility if stable. ? GI consulted, s/p EGD with bear clip placement over a duodenal ulcer on 03/13/2025. Patient tolerated procedure well. Hemoglobin stable at 9.9. Restarted misoprostol at a lower dose of 100 mcg every 6 hours due to previously presyncopal events with higher doses. ? Discharged Protonix 40 mg twice daily, sucralfate with meals for 7 more days, misoprostol 100mcg Q6h. No melanotic stools for 2 days. ? Cardiology consulted, agreeable to holding Plavix until tomorrow per GI recommendations. ? Will follow-up with GI within 1 week. #Aspiration pneumonia #Fever ? Temperature 100.3, WBC bumped to 13, CXR showing right lower lobe opacities. Patient had an episode of chest pain after eating 2 days ago. Likely aspiration pneumonia. ? Started Zosyn, transitioned to Augmentin for 5 more days. #Chest pain ? Patient had an episode of midsternal chest pain on 03/12/2025 which improved with nitro 0.4 mg x 2. Pressures became soft thereafter, responded well to IV fluids. ? EKG showed slight ST elevation in lead II which improved with nitro. Troponin 0.07, improvement from 0.36 on admission. Had a C on 03/05/2025. ? Cardiology consulted, recommended hemoglobin threshold of minimum 9.5. Since transfused with 1 unit. No chest pain since this event. ? Continue metoprolol tartrate 12.5 mg twice daily for angina. #HFrEF #CAD s/p stents ? Patient recently had NSTEMI with 1 stent placed recently on . ? Cardiology consulted, recommended discontinuing aspirin and continue Plavix 75 mg. Can restart tomorrow 03/15/2025. ? Continue GDMT metoprolol succinate 25 mg, valsartan, Farxiga (held due to soft pressures, will follow-up with cardiology), spironolactone in the setting of GI bleed. #Hypothyroidism ? Continue home levothyroxine 100 mcg. TFT stable. #BPH ? Resume home tamsulosin. Total time spent on discharge: 32 minutes on chart review, counseling, documentation, and direct care with patient. Exam Data for Last 24 hours Vital signs and Labs for Last 24 Hours: Temp Pulse Resp BP Pulse Ox O2 Del Method 98.1 F 65 17 119/56 L 92 L Room Air 03/14/25 08:00 03/14/25 08:00 03/14/25 08:00 03/14/25 08:00 03/14/25 08:00 03/14/25 09:00 Laboratory Results - last 24 hr 03/13/25 10:55: POC Glucose 83 03/13/25 17:04: POC Glucose 80 03/13/25 18:58: Chlamy pneumoniae PCR Not detected, Adenovirus (PCR) Not detected, B. pertussis DNA (PCR) Not detected, Coronavirus OC43 (PCR) Not detected, Coronavirus HKU1 (PCR) Not detected, Coronavirus 229E (PCR) Not detected, SARS-CoV-2 (PCR) Not detected, Coronavirus NL63 (PCR) Not detected, Human Metapneumovir PCR Not detected, Influenza A (H1) PCR Not detected, Influ A (H1N1/09) PCR Not detected, Influenza A (H3) PCR Not detected, Influenza Type A (PCR) Not detected, Influenza Type B (PCR) Not detected, M. pneumoniae (PCR) Not detected, Parainfluenza 1 (PCR) Not detected, Parainfluenza 2 (PCR) Not detected, Parainfluenza 3 (PCR) Not detected, Parainfluenza 4 (PCR) Not detected, RSV (PCR) Not detected, Entero/Rhino (PCR) Not detected 03/13/25 21:14: POC Glucose 140 H 03/13/25 22:57: Urine Color Yellow, Urine Appearance Clear, Urine pH 5.5, Ur Specific [place] 1.025, Urine Protein Trace, Urine Glucose (UA) Negative, Urine Ketones 1+, Urine Blood Negative, Urine Nitrate Negative, Urine Bilirubin 2+ A, Urine Urobilinogen 0.2, Ur Leukocyte Esterase Negative, Urine RBC None, Urine WBC Occasional, Ur Squamous Epith Cells Occasional, Uric Acid Crystals 1+, Urine Bacteria 2+ 03/14/25 05:30: WBC 13.0 H D, RBC 3.33 L, Hgb 9.9 L, Hct 31.1 L, MCV 93.4, MCH 29.7, MCHC 31.8, RDW 16.7, Plt Count 356, MPV 9.2, Neut % (Auto) 77.6, Lymph % (Auto) 10.6, [place] % (Auto) 8.3, Eos % (Auto) 2.0, Baso % (Auto) 0.4, Neut # (Auto) 10.1 H, Lymph # (Auto) 1.4, [place] # (Auto) 1.1 H, Eos # (Auto) 0.3, Baso # (Auto) 0.1, Sodium 136, Potassium 4.0, Chloride 102, Carbon Dioxide 21 L, Anion Gap 17.0 H, BUN 15, Creatinine 1.80 H, Estimated Creat Clear 57, Estimated GFR 37 L, Est GFR ( Amer) 44 L, Glucose 97, Calcium 8.3 L, Total Bilirubin 0.9, AST 142 H, ALT 28, Alkaline Phosphatase 82, Total Protein 6.4, Albumin 3.6, Globulin 2.8, Albumin/Globulin Ratio 1.3 03/14/25 05:33: POC Glucose 121 H I & O for Last 24 hours: Intake & Output 03/11/25 03/12/25 03/13/25 03/14/25 23:59 23:59 23:59 23:59 Intake Total 1240 / 1240 1076 / 1256 420 / 600 300 / 300 Output Total 1770 / 2170 1785 / 1785 500 / 500 225 / 225 Balance -530 / -930 -709 / -529 -80 / 100 75 / 75 Weight 119.11 kg 121.744 kg 119.408 kg 118.569 kg Constitutional Constitutional: no acute distress *Routine HEENT Exam Head: Present normocephalic Eye: Present EOMI and PERRL ENT: Present mucous membranes moist *Routine Neck Exam Neck: Present supple; Absent lymphadenopathy *Routine Respiratory Exam Respiratory: Present CTA bilaterally *Routine Cardiovascular Exam Cardiovascular: Present RRR *Routine Abdominal Exam Abdominal: Present soft and normoactive bowel sounds; Absent tenderness *Routine Extremities Exam Extremities: Absent cyanosis, clubbing or edema *Routine Skin Exam Skin: Present warm; Absent rash *Routine Neurological Exam Neurological: Present alert and oriented X3 Results Data Completed and Pending Labs on day of discharge: Labs from last 24 hours 03/14/25 03/14/25 03/13/25 05:33 05:30 22:57 WBC 13.0 H D RBC 3.33 L Hgb 9.9 L Hct 31.1 L MCV 93.4 MCH 29.7 MCHC 31.8 RDW 16.7 Plt Count 356 MPV 9.2 Neut % (Auto) 77.6 Lymph % (Auto) 10.6 [place] % (Auto) 8.3 Eos % (Auto) 2.0 Baso % (Auto) 0.4 Neut # (Auto) 10.1 H Lymph # (Auto) 1.4 Alpine # (Auto) 1.1 H Eos # (Auto) 0.3 Baso # (Auto) 0.1 Sodium 136 Potassium 4.0 Chloride 102 Carbon Dioxide 21 L Anion Gap 17.0 H BUN 15 Creatinine 1.80 H Estimated Creat Clear 57 Estimated GFR 37 L Est GFR ( Amer) 44 L Glucose 97 POC Glucose 121 H Calcium 8.3 L Total Bilirubin 0.9 AST 142 H ALT 28 Alkaline Phosphatase 82 Total Protein 6.4 Albumin 3.6 Globulin 2.8 Albumin/Globulin Ratio 1.3 Urine Color Yellow Urine Appearance Clear Urine pH 5.5 Ur Specific [place] 1.025 Urine Protein Trace Urine Glucose (UA) Negative Urine Ketones 1+ Urine Blood Negative Urine Nitrate Negative Urine Bilirubin 2+ A Urine Urobilinogen 0.2 Ur Leukocyte Esterase Negative Urine RBC None Urine WBC Occasional Ur Squamous Epith Cells Occasional Uric Acid Crystals 1+ Urine Bacteria 2+ Chlamy pneumoniae PCR Adenovirus (PCR) B. pertussis DNA (PCR) Coronavirus OC43 (PCR) Coronavirus HKU1 (PCR) Coronavirus 229E (PCR) SARS-CoV-2 (PCR) Coronavirus NL63 (PCR) Human Metapneumovir PCR Influenza A (H1) PCR Influ A (H1N1/09) PCR Influenza A (H3) PCR Influenza Type A (PCR) Influenza Type B (PCR) M. pneumoniae (PCR) Parainfluenza 1 (PCR) Parainfluenza 2 (PCR) Parainfluenza 3 (PCR) Parainfluenza 4 (PCR) RSV (PCR) Entero/Rhino (PCR) 03/13/25 03/13/25 03/13/25 21:14 18:58 17:04 WBC RBC Hgb Hct MCV MCH MCHC RDW Plt Count MPV Neut % (Auto) Lymph % (Auto) [place] % (Auto) Eos % (Auto) Baso % (Auto) Neut # (Auto) Lymph # (Auto) [place] # (Auto) Eos # (Auto) Baso # (Auto) Sodium Potassium Chloride Carbon Dioxide Anion Gap BUN Creatinine Estimated Creat Clear Estimated GFR Est GFR ( Amer) Glucose POC Glucose 140 H 80 Calcium Total Bilirubin AST ALT Alkaline Phosphatase Total Protein Albumin Globulin Albumin/Globulin Ratio Urine Color Urine Appearance Urine pH Ur Specific [place] Urine Protein Urine Glucose (UA) Urine Ketones Urine Blood Urine Nitrate Urine Bilirubin Urine Urobilinogen Ur Leukocyte Esterase Urine RBC Urine WBC Ur Squamous Epith Cells Uric Acid Crystals Urine Bacteria Chlamy pneumoniae PCR Not detected Adenovirus (PCR) Not detected B. pertussis DNA (PCR) Not detected Coronavirus OC43 (PCR) Not detected Coronavirus HKU1 (PCR) Not detected Coronavirus 229E (PCR) Not detected SARS-CoV-2 (PCR) Not detected Coronavirus NL63 (PCR) Not detected Human Metapneumovir PCR Not detected Influenza A (H1) PCR Not detected Influ A (H1N1/09) PCR Not detected Influenza A (H3) PCR Not detected Influenza Type A (PCR) Not detected Influenza Type B (PCR) Not detected M. pneumoniae (PCR) Not detected Parainfluenza 1 (PCR) Not detected Parainfluenza 2 (PCR) Not detected Parainfluenza 3 (PCR) Not detected Parainfluenza 4 (PCR) Not detected RSV (PCR) Not detected Entero/Rhino (PCR) Not detected 03/13/25 10:55 WBC RBC Hgb Hct MCV MCH MCHC RDW Plt Count MPV Neut % (Auto) Lymph % (Auto) [place] % (Auto) Eos % (Auto) Baso % (Auto) Neut # (Auto) Lymph # (Auto) [place] # (Auto) Eos # (Auto) Baso # (Auto) Sodium Potassium Chloride Carbon Dioxide Anion Gap BUN Creatinine Estimated Creat Clear Estimated GFR Est GFR ( Amer) Glucose POC Glucose 83 Calcium Total Bilirubin AST ALT Alkaline Phosphatase Total Protein Albumin Globulin Albumin/Globulin Ratio Urine Color Urine Appearance Urine pH Ur Specific [place] Urine Protein Urine Glucose (UA) Urine Ketones Urine Blood Urine Nitrate Urine Bilirubin Urine Urobilinogen Ur Leukocyte Esterase Urine RBC Urine WBC Ur Squamous Epith Cells Uric Acid Crystals Urine Bacteria Chlamy pneumoniae PCR Adenovirus (PCR) B. pertussis DNA (PCR) Coronavirus OC43 (PCR) Coronavirus HKU1 (PCR) Coronavirus 229E (PCR) SARS-CoV-2 (PCR) Coronavirus NL63 (PCR) Human Metapneumovir PCR Influenza A (H1) PCR Influ A (H1N1/09) PCR Influenza A (H3) PCR Influenza Type A (PCR) Influenza Type B (PCR) M. pneumoniae (PCR) Parainfluenza 1 (PCR) Parainfluenza 2 (PCR) Parainfluenza 3 (PCR) Parainfluenza 4 (PCR) RSV (PCR) Entero/Rhino (PCR) DS: Diagnosis Discharge Diagnosis (1) Duodenal ulcer with hemorrhage: Status: Acute Code(s): K26.4 - Chronic or unspecified duodenal ulcer with hemorrhage Meds Home Medications and Allergies Home Medications ?Medication ?Instructions ?Recorded ?Confirmed ?Type furosemide 20 mg tablet 20 mg PO MOWEFR 08/17/24 03/10/25 History dapagliflozin propanediol 10 mg 10 mg PO DAILY #30 tabs 11/15/24 03/10/25 Rx tablet (Farxiga) Held on 03/14/25. Instructions: Resume on 03/21/25. Please follow-up with cardiology before restarting this medication. Your blood pressures have been soft. famotidine 40 mg tablet 40 mg PO HS 12/13/24 03/10/25 History nitroglycerin 0.4 mg sublingual 0.4 mg sublingual Q5M PRN chest 12/13/24 03/10/25 Rx tablet pain #25 tabs spironolactone 25 mg tablet 25 mg PO DAILY 12/13/24 03/10/25 History levothyroxine 50 mcg tablet 50 mcg PO DAILYDM 02/28/25 03/10/25 History atorvastatin 40 mg tablet 40 mg PO HS 30 days #30 tabs 03/02/25 03/10/25 Rx clopidogrel 75 mg tablet 75 mg PO DAILY #90 tabs 03/05/25 03/10/25 Rx Held on 03/14/25. Instructions: Resume on 03/15/25. Restart on 03/15/2025. amoxicillin 500 mg-potassium 1 tab PO TID 5 days #15 tabs 03/14/25 Rx clavulanate 125 mg tablet (Augmentin) metoprolol succinate 25 mg 25 mg PO DAILY 30 days #30 tabs 03/14/25 Rx tablet,extended release 24 hr misoprostol 100 mcg tablet 100 mcg PO Q6H 30 days #120 tabs 03/14/25 Rx pantoprazole 40 mg tablet,delayed 40 mg PO BID 30 days #30 tabs 03/14/25 Rx release sucralfate 1 gram tablet 1 g PO ACHS 7 days #28 tabs 03/14/25 Rx tamsulosin 0.4 mg capsule 0.4 mg PO HS 30 days #30 caps 03/14/25 Rx valsartan 80 mg tablet 80 mg PO DAILY 30 days #0 tabs 03/14/25 03/10/25 Rx New Prescriptions to Start Prescriptions: amoxicillin-pot clavulanate [Augmentin] Eliseo Jameson metoprolol succinate Gisell,Eliseo misoprostol Gisell,Eliseo pantoprazole Gisell,Eliseo sucralfate Gisell,Eliseo tamsulosin Eliseo Jameson Allergies Allergy/AdvReac Type Severity Reaction Status Date / Time Antihistamines - Alkylamine Allergy Mild MADE SKIN Verified 01/15/25 14:51 (ANTIHISTAMINES - ALKYLAMINE) FEEL LIKE ON FIRE NSAIDS (Non-Steroidal AdvReac Severe kidney Verified 01/15/25 14:51 Anti-Inflamma failure Discharge Plan Disposition Patient Disposition: Home, Self-Care Condition: Fair Discharge Order Discharge Orders: Discharge Order (Routine); Ordered 03/14/25 Ordered By: Eliseo Jameson Follow up Plan Follow up with: Juan Luis Pfeiffer PA [Physician Bobbin Coil Winder, Cardiology] - 03/27/25 10:45 am Gisele Metcalf APRN [Nurse Practitioner, Gastroenterology] - 03/21/25 10:30 am Karissa Sharp APRN [Nurse Practitioner, Medical] - 03/19/25 3:00 pm Prescriptions/Medication Reconciliation: New misoprostol 100 mcg Tablet 100 mcg PO Q6H 30 Days Qty: 120 0RF sucralfate 1 gram Tablet 1 g PO ACHS 7 Days Qty: 28 0RF metoprolol succinate 25 mg tablet extended release 24 hr 25 mg PO DAILY 30 Days Qty: 30 0RF amoxicillin-pot clavulanate [Augmentin] 500-125 mg tablet 1 tab PO TID 5 Days Qty: 15 0RF Continued furosemide 20 mg tablet 20 mg PO MOWEFR Patient Comments: TAKE ONE TABLET BY MOUTH ON MONDAYS, WEDNESDAY AND FRIDAYS famotidine 40 mg tablet 40 mg PO HS spironolactone 25 mg tablet 25 mg PO DAILY nitroglycerin 0.4 mg tablet, sublingual 0.4 mg sublingual Q5M PRN (Reason: chest pain) Qty: 25 0RF Rx Instructions: do not exceed 3 doses per episode levothyroxine 50 mcg tablet 50 mcg PO DAILYDM atorvastatin 40 mg Tablet 40 mg PO HS 30 Days Qty: 30 0RF Changed valsartan 80 mg Tablet 80 mg PO DAILY 30 Days Qty: 0 0RF tamsulosin 0.4 MG capsule 0.4 mg PO HS 30 Days Qty: 30 0RF pantoprazole 40 mg tablet,delayed release (DR/EC) 40 mg PO BID 30 Days Qty: 30 0RF Held dapagliflozin propanediol [Farxiga] 10 mg tablet 10 mg PO DAILY Qty: 30 5RF Hold Instructions: Resume on 03/21/25. Please follow-up with cardiology before restarting this medication. Your blood pressures have been soft. clopidogrel 75 mg tablet 75 mg PO DAILY Qty: 90 3RF Hold Instructions: Resume on 03/15/25. Restart on 03/15/2025. Discontinued carvedilol 12.5 mg tablet 12.5 mg PO BID Qty: 60 5RF Rx Instructions: must administer with a meal/food aspirin 81 mg Tablet,Delayed Release (Dr/Ec) 81 mg PO DAILY 30 Days Qty: 30 0RF Problem Reconciliation Problems Reviewed?: Yes Patient Discharge Instructions Patient Instructions: Anemia, Duodenal Ulcer, DI for Vomiting -- Adult, DI for Gastrointestinal Bleeding Print Language: [place] Citizen Providers Primary Care Provider: Gasper [place] Admit Provider: Eliseo Jameson Attending Provider: Eliseo Jameson
[2025-03-14] MEDS: PIPERCILLIN/TAZO 3.375 GM in 0.9 % SODIUM CHLORIDE 50 ML IV (10:29)
--- NOTE | 2025-03-14 11:01 | P.PN_ITS ---
Subjective Subjective Date: 03/14/25 Time: 11:01 Principal diagnosis: GI bleed, CAD with recent stents Interval history: 79-year-old white male in bed in no acute distress. No further episodes of chest pain. No further melanotic stools per patient. Hemoglobin today is 9.9 Exam Data for Last 24 hours Vital signs and Labs for Last 24 Hours: Temp Pulse Resp BP Pulse Ox O2 Del Method 98.1 F 65 17 119/56 L 92 L Room Air 03/14/25 08:00 03/14/25 08:00 03/14/25 08:00 03/14/25 08:00 03/14/25 08:00 03/14/25 09:00 Laboratory Results - last 24 hr 03/13/25 10:55: POC Glucose 83 03/13/25 17:04: POC Glucose 80 03/13/25 18:58: Chlamy pneumoniae PCR Not detected, Adenovirus (PCR) Not detected, B. pertussis DNA (PCR) Not detected, Coronavirus OC43 (PCR) Not detected, Coronavirus HKU1 (PCR) Not detected, Coronavirus 229E (PCR) Not detected, SARS-CoV-2 (PCR) Not detected, Coronavirus NL63 (PCR) Not detected, Human Metapneumovir PCR Not detected, Influenza A (H1) PCR Not detected, Influ A (H1N1/09) PCR Not detected, Influenza A (H3) PCR Not detected, Influenza Type A (PCR) Not detected, Influenza Type B (PCR) Not detected, M. pneumoniae (PCR) Not detected, Parainfluenza 1 (PCR) Not detected, Parainfluenza 2 (PCR) Not de tected, Parainfluenza 3 (PCR) Not detected, Parainfluenza 4 (PCR) Not detected, RSV (PCR) Not detected, Entero/Rhino (PCR) Not detected 03/13/25 21:14: POC Glucose 140 H 03/13/25 22:57: Urine Color Yellow, Urine Appearance Clear, Urine pH 5.5, Ur Specific [place] 1.025, Urine Protein Trace, Urine Glucose (UA) Negative, Urine Ketones 1+, Urine Blood Negative, Urine Nitrate Negative, Urine Bilirubin 2+ A, Urine Urobilinogen 0.2, Ur Leukocyte Esterase Negative, Urine RBC None, Urine WBC Occasional, Ur Squamous Epith Cells Occasional, Uric Acid Crystals 1+, Urine Bacteria 2+ 03/14/25 05:30: WBC 13.0 H D, RBC 3.33 L, Hgb 9.9 L, Hct 31.1 L, MCV 93.4, MCH 29.7, MCHC 31.8, RDW 16.7, Plt Count 356, MPV 9.2, Neut % (Auto) 77.6, Lymph % (Auto) 10.6, [place] % (Auto) 8.3, Eos % (Auto) 2.0, Baso % (Auto) 0.4, Neut # (Auto) 10.1 H, Lymph # (Auto) 1.4, [place] # (Auto) 1.1 H, Eos # (Auto) 0.3, Baso # (Auto) 0.1, Sodium 136, Potassium 4.0, Chloride 102, Carbon Dioxide 21 L, Anion Gap 17.0 H, BUN 15, Creatinine 1.80 H, Estimated Creat Clear 57, Estimated GFR 37 L, Est GFR ( Amer) 44 L, Glucose 97, Calcium 8.3 L, Total Bilirubin 0.9, AST 142 H, ALT 28, Alkaline Phosphatase 82, Total Protein 6.4, Albumin 3.6, Globulin 2.8, Albumin/Globulin Ratio 1.3 03/14/25 05:33: POC Glucose 121 H I & O for Last 24 hours: Intake & Output 03/11/25 03/12/25 03/13/25 03/14/25 11:59 11:59 11:59 11:59 Intake Total 1380 / 1380 600 / 600 1256 / 1256 540 / 540 Output Total 1070 / 1070 2035 / 2035 1300 / 1300 225 / 225 Balance 310 / 310 -1435 / -1435 -44 / -44 315 / 315 Weight 262 lb 9.481 oz 268 lb 6.4 oz 263 lb 4 oz 261 lb 6.4 oz Constitutional Constitutional: no acute distress *Routine Respiratory Exam Respiratory: Present CTA bilaterally *Routine Cardiovascular Exam Cardiovascular: Present RRR Progress Note: A&P Assessment and plan (1) Duodenal ulcer with hemorrhage: Status: Acute (2) Acute blood loss anemia: Status: Acute (3) Acute GI bleeding: Status: Acute Assessment and Plan Assessment and Plan for All Diagnoses:: 1. Recurrent GI bleed -Hgb stable around 10 after 2 unit PRBC -EGD with ulcer banding, 03/14/2025 2. CAD -recent 3 JAMIL to Cx and RCA, 03/05/2025. Will hold DAPT for now to get bleeding to stop. -clinically stable 3. HFrEF -Echo, 02/2025, EF 40-45% with moderate hypokinesis of the septal, anteroseptal, inferoseptal and apical LV [place] 4. CKD -Cr 1.6, GFR 39 5. Chronic bilateral lower extremity lymphedema 6. Obesity 7. PAD of bilateral LE's on Abd CTA with runoff, 10/2023, medical therapy at that time. 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 Mello recommendation. Clinically stable for discharge when ready. Home medication recommendations: Start Plavix 75 mg daily on 03/15/2025 Atorvastatin 40 mg daily Lasix 20 mg daily on Wednesday and Wednesday only Metoprolol succinate 25 mg 1/2 tablet daily Holding valsartan, dapagliflozin and spironolactone with consideration of restarting it at office follow-up in 1 week. Stop aspirin. Follow-up in our office in 1 week.
[2025-03-14 11:13] LABS: POC Glucose,Bedside 150 (70-110)
[2025-03-14 12:00] VITALS: PULSE 80
--- NOTE | 2025-03-14 13:38 | HMH.SLDYSPHA ---
Speech & Language Evaluation Speech/Language Dysphagia Evaluation Start: 03/14/25 13:30 Freq: ONCE Status: Active Protocol: Document 03/14/25 13:31 JOHN (Rec: 03/14/25 13:38 [email or web address] [id number]) Dysphagia Assess/Goals/Plan Assessment Date of Evaluation: 03/14/25 Evaluation Type Initial Certification Assessment/Problems aspiration concerns per MD order Does Patient Qualify No for Service Qualify/Failure Based on clinical observations made throughout CSE, Comment mastication and manipulation of bolus and swallowing appear to be WFL with pt report of tolerating current diet well. No further skilled speech therapy services are warranted at this time. Recommendations PHYSICIAN CERTIFICATION: The specified therapy services are required, authorized, and reviewed every 30 days. Diet Recommendations Mechanical Soft Liquid Type Normal/Thin Recommendations SL Swallow Alt bite w/sip thru meal,Standard Aspiration Prec.,Eat Guidelines at slow rate,Reflux precautions Dysphagia Swallow Small Bites and Sips,Alternate Liquids/Solids Precautions/ Strategies Plan Pt/Guardian verbally Yes ack understanding of dx/prognosis/ goals G -code Required No Education Instructions Discussed results of CSE, reviewed current diet, provided provided education on aspiration risks/precautions and compensatory strategies to be used during meal times to pt, nursing, and care management all of which expressed understanding. 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 Moody a 79-year-old male who has significant lower leg lymphedema chronic uses a walker to get around. He recently has had stents placed during cardiac catheterization due to significant cardiovascular disease. He has had this also done in the past. Patient remains on aspirin and Plavix because of this.. Patient also has history of GI bleed with several procedures that have been done. He began to have black stools today came into the emergency room found to be lower than his normal hemoglobin of 9 received 1 unit in the ER. Patient remained stable in the emergency room. The ER doctor talked with our surgery and gastroenterology that this patient's extensive history required more than he could receive here. And suggest that he be transferred. Emergency room physician noted to me that the hospitals in [place] were on divert.. He was able to get a hold of the [facility] that would accept him but the bed was not ready. The hospital in [place] said to expect at least a 24-hour delay. Following hospital policy after 4-1/2 hours in the ER patient will be admitted to the floor. Patient is stable at this time but will continue him on continuous cardiac monitor technician. Due to the possibility of surgery will only keep him on a clear liquid diet at this time. Patient has been placed on 2 types of medication to decrease stomach acids at this time to try to prevent any more bleed. Plavix and aspirin are on hold. And during my exam the patient is alert oriented actually has some pinkness to his face and appears to be in no distress. Will place the patient on the floor continue to monitor him I have personally spoke with the lab personnel we will keep 2 units of blood on hold. Once he has been on the floor for a while we will recheck his H&H with his cardiac history the question is us to transfuse if below 7 or if it is below 8. At the present time he is in no distress so we will hold on any transfusion as his last hemoglobin was 7.4. Nursing personnel on the floor are aware of the fact that he is to be transferred we will continue to follow -up with the [facility] as needed to expedite his departure. CXR reports: FINDINGS: Lungs: Unremarkable. No consolidation. Pleural spaces: Unremarkable. No pleural effusion. No pneumothorax. Heart/Mediastinum: Unremarkable. No cardiomegaly. Bones/joints: Unremarkable. IMPRESSION: No acute findings. Language Primary Language Frisian General Information General Dentition Poor Dentition Patient Orientation Person,Place,Time Ability to Follow Good Directions Communication No Impairment Ability Dysphagia:Food Presentation Evaluation Food Type Pureed,Mechanical Soft,Liquid,Pudding Dysphagia Evaluation Pt was seen sitting upright in bed this AM and was A& Summary Ox3. Oral care was provided prior to administering trials. He was able to follow simple commands and complete a volitional throat clear and cough. Pt was given a variety of bolus consistencies x2 to assess for consistency and/or fatigue. The consistencies administered included the following: thin liquid (ice chips/open cup and straw sip/subsequent sips from open cup/straw), pudding, pureed applesauce, and mechanical soft (nutrigrain bar.) Regular solids were not trialed 2' lack of dentition and increased mastication time with MS. Pt reported no concerns with swallowing at this time. ANIMAL RIDE MANAGER educated on continuing with sdiet and thin liquids and he expressed understanding and agreement. ANIMAL RIDE MANAGER discussed and reviewed aspiration risks/ precautions as well as compensatory strategies with him and he expressed understanding. No overt s/sxs of aspiration were noted throughout CSE. No further skilled speech therapy services are warranted at this time. Stroke Dysphagia Assessment PHYSICIAN CERTIFICATION: I certify the specified therapy services for Riki Mckeon are required, authorized, and reviewed every 30 days.
--- NOTE | 2025-03-15 09:59 | SW/DCPLANNER ---
Spoke with patient on the phone. Patient stated that he is doing better. Patient stated that he is aware of his upcoming appointments. Patient stated that he was able to get his new medicine picked up from clinic pharmacy. Patient stated that he has no concerns or questions at this time. Beverly Pittman
== END 2025-03-14 13:48 | disposition home or self-care (01) | DRG 377 ==
LOC: ER 16:13 → 2ND 19:55
PROVIDERS: Internal Medicine Gastroenterology; Nurse Practitioner Family; Admitting Provider Student in an Organized Health Care Education/Training Program; Emergency Provider Student in an Organized Health Care Education/Training Program; PCP Internal Medicine Adolescent Medicine; Visit Provider Student in an Organized Health Care Education/Training Program
PROC: 0DJ08ZZ Inspection of Upper Intestinal Tract, Via Natural or Artificial Opening Endoscopic (ICD-10-PCS; principal; 2025-03-13 12:00)
DX: K26.4 Chronic or unspecified duodenal ulcer with hemorrhage (principal); I21.4 Non-ST elevation (NSTEMI) myocardial infarction; I50.22 Chronic systolic (congestive) heart failure; D62 Acute posthemorrhagic anemia; I13.0 Hypertensive heart and chronic kidney disease with heart failure and stage 1 through stage 4 chronic kidney disease, or unspecified chronic kidney disease; N39.0 Urinary tract infection, site not specified; Z16.29 Resistance to other single specified antibiotic; N17.9 Acute kidney failure, unspecified; I89.0 Lymphedema, not elsewhere classified; I25.10 Atherosclerotic heart disease of native coronary artery without angina pectoris; E03.9 Hypothyroidism, unspecified; N40.0 Benign prostatic hyperplasia without lower urinary tract symptoms; R07.89 Other chest pain; E66.9 Obesity, unspecified; I73.9 Peripheral vascular disease, unspecified; K44.9 Diaphragmatic hernia without obstruction or gangrene; N18.31 Chronic kidney disease, stage 3a; B96.4 Proteus (mirabilis) (morganii) as the cause of diseases classified elsewhere; Z95.5 Presence of coronary angioplasty implant and graft; Z68.39 Body mass index [BMI] 39.0-39.9, adult; Z79.890 Hormone replacement therapy; Z79.82 Long term (current) use of aspirin; Z79.02 Long term (current) use of antithrombotics/antiplatelets; Z79.899 Other long term (current) drug therapy; Z88.8 Allergy status to other drugs, medicaments and biological substances; L97.529 Non-pressure chronic ulcer of other part of left foot with unspecified severity
CPT/HCPCS: 36415; 36430; 70450; 71045; 72170; 75635; 80048; 80053; 81001; 82550; 82962; 83690; 83735; 84484; 85014; 85018; 85025; 85610; 85730; 86850; 87086; 87088; 87186; 87633; 92610; 93005; 93880; 97162; 97166; J2003; J2270; J2405; J2470; J2543; J2704; J3475; J7030; J7050; P9016; Q9967

== ENCOUNTER 2025-03-27 11:24 | Outpatient (CLI) | payer MEDICARE, SELFPAY ==
[2025-03-27 11:56] LABS: Hematocrit 34.0 % (42.0-52.0); Hemoglobin 10.6 g/dL (14.1-18.0); Immature Granulocytes % 0.9 %; Mean Corpuscular HGB Conc 31.2 g/dL (31.8-35.4); Mean Corpuscular Hemoglobin 28.9 pg (27.0-31.2); Mean Corpuscular Volume 92.6 fl (80-94); Nucleated Red Blood Cells % 0 %; Platelet Count 502 K/mm3 (142-424); Red Blood Count 3.67 M/mm3 (4.60-6.20); Red Cell Distribution Width-SD 55.1 fL; White Blood Count 10.1 K/mm3 (4.8-10.8)
[2025-03-27 12:17] LABS: Chloride 107 mmol/L (98-107); Sodium 140 mmol/L (136-145)
[2025-03-27 12:18] LABS: Potassium 3.5 mmoL/L (3.5-5.1)
[2025-03-27 12:20] LABS: Blood Urea Nitrogen 22 mg/dl (9-20); Creatinine,Serum 1.80 mg/dl (0.66-1.25); Estimated Glomerular Filt Rate 37 ml/min (>60); GFR (African American) 44 ML/MIN (>60)
[2025-03-27 12:21] LABS: Anion Gap 13.5 mEq/L (5-15); Calcium 8.6 mg/dl (8.4-10.2); Carbon Dioxide 23 mmol/L (22.0-30.0); Glucose 108 mg/dl (74-100); Magnesium 1.4 mg/dl (1.6-2.3)
== END 2025-03-27 23:59 | disposition home or self-care (01) ==
LOC: LAB 11:26
PROVIDERS: PCP Nurse Practitioner Family; Visit Provider Nurse Practitioner Family
DX: K27.4 Chronic or unspecified peptic ulcer, site unspecified, with hemorrhage (principal); Z87.19 Personal history of other diseases of the digestive system; I25.10 Atherosclerotic heart disease of native coronary artery without angina pectoris; I50.20 Unspecified systolic (congestive) heart failure
CPT/HCPCS: 36415; 80048; 83735; 85025

== ENCOUNTER 2025-05-15 15:12 | Outpatient (CLI) | payer MEDICARE, SELFPAY ==
--- NOTE | 2025-05-15 15:20 | XR_ITS ---
FINAL REPORT CLINICAL HISTORY: Left knee pain COMPARISON: None FINDINGS: 3 views of the left knee were obtained. There is no acute fracture or dislocation. There is severe joint space narrowing and degenerative change at the lateral compartment with less pronounced degenerative change in the medial compartment and patellofemoral joint. There is osteopenia. There is no acute soft tissue abnormality. IMPRESSION: Severe degenerative change without acute findings. Reviewed, Interpreted and Dictated by Shankar Willis MD Transcribed by Libertad Tineo Authenticated and [facility]
--- NOTE | 2025-05-15 15:20 | XR_ITS ---
FINAL REPORT CLINICAL HISTORY: Right knee pain COMPARISON: None FINDINGS: 3 views of the right knee were obtained. There is no acute fracture or dislocation. There is severe joint space narrowing and degenerative change of the medial compartment, with less pronounced degenerative change in the lateral compartment and patellofemoral joint. Osteopenia is noted. There is no acute soft tissue abnormality. IMPRESSION: Severe degenerative change with no acute findings. Reviewed, Interpreted and Dictated by Shankar Willis MD Transcribed by Libertad Tineo Authenticated and [facility]
== END 2025-05-15 23:59 | disposition home or self-care (01) ==
LOC: RAD 15:13
PROVIDERS: PCP Internal Medicine Adolescent Medicine; Visit Provider Internal Medicine Adolescent Medicine
DX: M17.0 Bilateral primary osteoarthritis of knee (principal); M85.862 Other specified disorders of bone density and structure, left lower leg; M85.861 Other specified disorders of bone density and structure, right lower leg
CPT/HCPCS: 73562

== ENCOUNTER 2025-07-05 11:24 | Observation (INO) | payer MEDICARE, SELFPAY ==
[2025-07-05] VITALS (30 sets, daily range): BP systolic 116–189; BP diastolic 60–104; PULSE 65–99; RESP 14–20; TEMP 35.8–37.1; O2SAT 91–100; BMI 42.5; BMI 41.2
--- NOTE | 2025-07-05 07:08 | IR_ITS ---
APPROVED REPORT Patient Location: Outpatient PROCEDURES Left heart catheterization Left ventriculogram Selective coronary angiogram Drug-eluting stent deployment to the ostial proximal right coronary INDICATION Coronary artery disease, Accelerated angina pectoris Informed consent was obtained prior to the procedure. COMPLICATIONS NONE Estimated Blood Loss: LESS THAN 10 ML TECHNIQUE One percent lidocaine was used to anesthetize the right groin. The right femoral artery was accessed via the Seldinger technique. A 4-Israeli sheath was placed in the right femoral artery. The JL-4 and JR-4 catheter was also used to perform left heart catheterization left ventriculogram and selective coronary angiogram. At the end the diagnostic angiogram therapeutic heparin was administered giving a therapeutic ACT and the 4 Israeli sheath was exchanged for a 6 Israeli sheath. A 3 DRC guide catheter was placed in the right coronary artery followed by Choice PT extra-support wire. A 3.5 x 15 mm Eugene frontier stent was initially deployed at 18 cristopher in the ostial segment however the balloon was pulled back a half a length and deployed at 24 cristopher to further post dilate. NEAL-3 flow was present before and after the procedure. At the end of the procedure the groin is reprepped closure change sheath was removed and Perclose was advanced however I was not confident with the deployment of the footplate and the manual field of the device and the femoral artery therefore the sutures were never deployed. The wire was reinserted arterial access was reestablished and a 6 Israeli sheath was placed back into the femoral artery with plans to manually pull in postop recovery. Patient was transferred to the postop holding area in stable condition ANGIOGRAPHIC RESULTS The left main artery Has a stent in the ostial segment which extends into both the LAD and circumflex artery. The stent is widely patent The left anterior descending artery Has a stent in the proximal segment which has concentric 80% in-stent restenosis. This gives rise to a medium sized first diagonal artery which is patent. Distal to the first diagonal artery the LAD is subtotally occluded and scantly fills via left to left collaterals into the distal segment The circumflex artery Has a stent originating from the left main artery which is widely patent followed by mid vessel 40 to 50% stenosis followed by a large stent in the obtuse marginal artery which is widely patent free of in-stent restenosis The right coronary artery Is dominant and has an ostial greater than 90% stenosis representing in-stent restenosis. Following revascularization the right coronary is widely patent with stents which extend into the midportion followed by 30 to 40% stenosis with distal 30% stenoses The IBANEZ ventriculogram reveals Reduced at 40% The left ventricular end-diastolic pressure 20 mmHg IMPRESSION Coronary artery disease as described above Successful stenting of an ostial proximal right coronary severe disease reduced to 0% with 1 drug-eluting stent Persistent severe stenosis in the proximal LAD which supplies a medium sized first diagonal artery which I believe is best managed medically at this time Chronically occluded mid LAD which fills scantly via left to left collaterals Reduced ejection fraction Elevated LVEDP PLAN 1. Medical management for remaining coronary artery disease. Should patient continue with recalcitrant angina pectoris consideration will be given to bring patient back and stent the proximal LAD and reconsider opening the chronically occluded LAD 2. Dual antiplatelet therapy 3. LDL less than 55 to be achieved with high intensity statin 4. Avoidance of tobacco products 5. Risk factor modification Electronically signed by : Jeffrey Conway MD 07/05/2025 12:48:32
[2025-07-05 08:26] LABS: Hematocrit 34.7 % (42.0-52.0); Hemoglobin 10.7 g/dL (14.1-18.0); Immature Granulocytes % 0.5 %; Mean Corpuscular HGB Conc 30.8 g/dL (31.8-35.4); Mean Corpuscular Hemoglobin 25.5 pg (27.0-31.2); Mean Corpuscular Volume 82.8 fl (80-94); Nucleated Red Blood Cells % 0 %; Platelet Count 412 K/mm3 (142-424); Red Blood Count 4.19 M/mm3 (4.60-6.20); Red Cell Distribution Width-SD 50.2 fL; White Blood Count 8.8 K/mm3 (4.8-10.8)
[2025-07-05 08:37] LABS: Anion Gap 14.3 mEq/L (5-15); Blood Urea Nitrogen 23 mg/dl (9-20); Calcium 8.3 mg/dl (8.4-10.2); Carbon Dioxide 23 mmol/L (22.0-30.0); Chloride 107 mmol/L (98-107); Creatinine Clearance Estimated 35 mL/min (50-200); Creatinine,Serum 1.70 mg/dl (0.66-1.25); Estimated Glomerular Filt Rate 39 ml/min (>60); GFR (African American) 47 ML/MIN (>60); Glucose 110 mg/dl (74-100); Potassium 4.3 mmoL/L (3.5-5.1); Sodium 140 mmol/L (136-145)
[2025-07-05] MEDS: HEPARIN 1,000 UNITS/ML 10ML VIAL (CATH LAB) 5000 UNIT IV (09:37)
[2025-07-05] MEDS: HEPARIN 1,000 UNITS/500ML NS (CATH LAB) 3000 UNIT IV (09:37)
[2025-07-05] MEDS: LIDOCAINE 1% 10ML MDV 10 ML IJ (09:38)
[2025-07-05] MEDS: 0.9 % SODIUM CHLORIDE 500 ML 25 ML IV (09:40)
[2025-07-05] MEDS: MIDAZOLAM HCL 1MG/ML 5ML VIAL 1 MG IV (09:41)
[2025-07-05] MEDS: FENTANYL 100MCG/2ML VIAL 50 MCG IV (09:41)
[2025-07-05] MEDS: PROTAMINE SULFATE 50MG/5ML VIAL (CATH LAB) 50 MG IV (10:33)
--- NOTE | 2025-07-05 10:57 | CA_ITS ---
FINAL REPORT TECHNIQUE: Ultrasound and duplex Doppler evaluation of the common femoral artery and venous system were performed. Spectral analysis was performed. CLINICAL HISTORY: post heart cath today with right groin femoral access. possible knot at site. FINDINGS: VASCULAR ULTRASOUND, RIGHT GROIN There is no evidence of pseudoaneurysm or AV fistula. Normal arterial and venous flow are present. IMPRESSION: No evidence of pseudoaneurysm. Reviewed, Interpreted and Dictated by Peng Michelle MD Transcribed by Mena Kohler Authenticated and [facility]
--- NOTE | 2025-07-05 11:43 | SUR.PHASEII ---
Pt arrived to post off with oozing around the sheath, notified and removed the sheath and held manual pressure for 30 minutes. Echo called post sheath pull for US of groin, notified of findings per haylie from echo. Sterile dressing applied to groin. Bruising and excoriation noted to right groin.
[2025-07-05] MEDS: IOPAMIDOL-370 (76%);100ML BOTTLE 90 ML IV (12:02)
[2025-07-05 12:05] LABS: CATHL Activated Clotting Time 251 SEC (74-125)
--- NOTE | 2025-07-05 12:24 | P.HP_ITS ---
History of Present Illness *Admission Date: 07/05/25 *Reason for visit:: Outpatient coronary angiography *History of present illness: Riki Mckeon is a 79-year-old male with medical history significant for CAD with multiple stents, HFrEF, hypothyroidism, duodenal ulcer, BPH, GI bleed who presented as an outpatient coronary angiography and received 1 JAMIL to RCA. LAD continues to have severe stenosis but Dr. Conway recommended medical management. LVEDP also noted. On my evaluation of patient after procedure, he was sitting in bed comfortably eating dinner. Denies chest pain, shortness of breath. He was noted to have lower extremity edema which he states is chronic. BNP pending at this time. CBC, CMP relatively unremarkable for acute findings. Dr. Conway recommended admission and monitoring overnight in setting of CKD. [facility] Disclaimer: The information contained in this section may have been updated after the patient was seen, as this information can be updated by other users. Medical History SOB (shortness of breath) Cardiovascular disease Bilateral lower leg cellulitis Lymphedema of both lower extremities Chronic acquired lymphedema UGIB (upper gastrointestinal bleed) PUD (peptic ulcer disease) Duodenitis Nausea and vomiting Nausea Encounter for laboratory testing for COVID-19 virus Diabetes mellitus Gastroenteritis and colitis, viral Dehydration PICC (peripherally inserted central catheter) in place Diabetic foot Multiple drug resistant organism (MDRO) culture positive Near syncope Cellulitis, leg Ingrowing Toenail Callus of foot Onychoincurvatum Onychodystrophy Pain around toenail, left foot Ingrowing Toenail Cellulitis of right leg Arthritis PAD (peripheral artery disease) HTN (hypertension), benign Heart murmur T2DM (type 2 diabetes mellitus) BPH (benign prostatic hyperplasia) Peripheral vascular disease Surgical History Hx of colonoscopy History of total left hip replacement Family History Other Cancer Heart attack Social History (Updated 07/05/25 @ 12:25 by Heather Patricio RN) Smoking Status: Never smoker alcohol intake: never substance use type: denies use current occupational status: retired Travel in the last 8 weeks?: None household members: none housing: house current occupation: [employer] current occupational exposures/hazards: No caffeine: Yes Have you lived/traveled outside [place] in past 30 days?: No Contact w/someone who lives/traveled outside US past 30 days?: No Exposure to someone with infectious disease in past 14 days?: No Do you have a fever (greater than 100.4 F or 38 C)?: No Have you tested positive for COVID-19?: No Exposed to someone with COVID-19 in past 14 days?: No Do you have a sore throat?: No Do you have a cough?: No Do you have any weakness?: No Do you have any diarrhea?: No Are you experiencing any unusual bleeding?: No Do you have any muscle aches/pain?: No Do you have any abdominal pain?: No Are you experiencing loss of taste or smell?: No Other Medical History Have you received the Flu Vaccine for this season: No Have you received the Pneumonia Vaccine: No Meds Home Medications and Allergies Home Medications ?Medication ?Instructions ?Recorded ?Confirmed ?Type furosemide 20 mg tablet 20 mg PO MOWEFR 08/17/2402/21 History dapagliflozin propanediol 10 mg 10 mg PO DAILY #30 tab s 11/15/24 07/05/25 Rx tablet (Farxiga) nitroglycerin 0.4 mg sublingual 0.4 mg sublingual Q5M PRN chest 12/13/24 07/05/25 Rx tablet pain #25 tabs levothyroxine 50 mcg tablet 50 mcg PO DAILYDM 02/28/25 07/05/25 History clopidogrel 75 mg tablet 75 mg PO DAILY #90 tabs 0703/2307/05/25 Rx misoprostol 100 mcg tablet 100 mcg PO Q6H 30 days #120 tabs 03/14/25 07/05/25 Rx atorvastatin 40 mg tablet 40 mg PO HS 30 days #30 tabs 06/27/25 07/05/25 Rx isosorbide mononitrate 30 mg 30 mg PO DAILY #30 tabs 1 07/05/25 Rx tablet,extended release 24 hr metoprolol succinate 25 mg 25 mg PO DAILY #30 tabs 07/05/25 Rx tablet,extended release 24 hr vonoprazan 20 mg tablet (Voquezna) 20 mg PO DAILY 05/3107/05/25 History spironolactone 25 mg tablet 25 mg PO DAILY 07/05/25 History tamsulosin 0.4 mg capsule 0.4 mg PO HS 07/05/25 History New Prescriptions to Start Prescriptions: Allergies Allergy/AdvReac Type Severity Reaction Status Date / Time Antihistamines - Alkylamine Allergy Mild MADE SKIN Verified 06/27/25 10:45 (ANTIHISTAMINES - ALKYLAMINE) FEEL LIKE ON FIRE NSAIDS (Non-Steroidal AdvReac Severe kidney Verified 06/27/25 10:45 Anti-Inflamma failure Exam Data for Last 24 hours Vital signs and Labs for Last 24 Hours: Temp Pulse Resp BP Pulse Ox O2 Del Method O2 Flow Rate 96.5 F L 90 18 131/78 92 L Room Air 2 07/05/25 12:00 07/05/25 12:00 07/05/25 12:00 07/05/25 12:00 07/05/25 12:00 07/05/25 12:00 07/05/25 11:20 Laboratory Results - last 24 hr 07/05/25 08:17: WBC 8.8, RBC 4.19 L, Hgb 10.7 L, Hct 34.7 L, MCV 82.8, MCH 25.5 L, MCHC 30.8 L, RDW 16.7, Plt Count 412, MPV 8.8, Neut % (Auto) 61.4, Lymph % (Auto) 23.3, [place] % (Auto) 9.3, Eos % (Auto) 4.5, Baso % (Auto) 1.0, Neut # (Auto) 5.4, Lymph # (Auto) 2.1, [place] # (Auto) 0.8, Eos # (Auto) 0.4, Baso # (Auto) 0.1, Sodium 140, Potassium 4.3, Chloride 107, Carbon Dioxide 23, Anion Gap 14.3, BUN 23 H, Creatinine 1.70 H, Estimated Creat Clear 35, Estimated GFR 39 L, Est GFR ( Amer) 47 L, Glucose 110 H, Calcium 8.3 L 07/05/25 11:22: Activated Clotting Time 251 H* I & O for Last 24 hours: Intake & Output 07/02/25 07/03/25 07/04/25 11/06/25 23:59 23:59 23:59 23:59 Intake Total 500 / 500 Balance 500 / 500 Weight 127.006 kg Constitutional Constitutional: no acute distress, obese and chronically ill appearing *Routine HEENT Exam Head: Present normocephalic Eye: Present EOMI and PERRL ENT: Present mucous membranes moist *Routine Neck Exam Neck: Present supple; Absent lymphadenopathy *Routine Respiratory Exam Respiratory: Present CTA bilaterally *Routine Cardiovascular Exam Cardiovascular: Present RRR *Routine Abdominal Exam Abdominal: Present soft and normoactive bowel sounds; Absent tenderness *Routine Rectal Exam Rectal:: deferred *Routine Genitalia Exam Genitalia:: deferred *Routine Extremities Exam Extremities: Present edema; Absent cyanosis or clubbing *Routine Skin Exam Skin: Present warm; Absent rash *Routine Neurological Exam Neurological: Present alert and oriented X3 Assessment and Plan *Assessment and plan (1) CAD (coronary artery disease): Status: Acute Qualifiers: Coronary Disease-Associated Artery/Lesion type: [place] artery [place] vs. transplanted heart: [place] heart Associated angina: without angina Qualified Code(s): I25.10 - Atherosclerotic heart disease of [place] coronary artery without angina pectoris Category: Medical Code(s): I25.10 - Atherosclerotic heart disease of [place] coronary artery without angina pectoris Plan Riki Mckeon is a 79-year-old male with medical history significant for CAD with multiple stents, HFrEF, hypothyroidism, duodenal ulcer, BPH, GI bleed who presented as an outpatient coronary angiography and received 1 JAMIL to RCA. LAD continues to have severe stenosis but Dr. Conway recommended medical management. LVEDP also noted. On my evaluation of patient after procedure, he was sitting in bed comfortably eating dinner. Denies chest pain, shortness of breath. He was noted to have lower extremity edema which he states is chronic. BNP pending at this time. CBC, CMP relatively unremarkable for acute findings. Dr. Conway recommended admission and monitoring overnight in setting of CKD and for bleeding. #CAD with multiple stents #HFrEF 40 to 45% #Hypertension ? Presented as an outpatient coronary angiography and received 1 JAMIL to RCA. LAD continues to have severe stenosis but Dr. Conway recommended medical management. LVEDP also noted. ? Continue aspirin 81 mg, prasugrel 10 mg, metoprolol succinate 25 mg, Imdur 30 mg, spironolactone 25 mg, Farxiga 10 mg, Lasix 20 mg MWF. ? Consider IV Lasix in the morning after RFT's. Follow-up BNP. ? Follow-up A1c, lipid panel, TSH. ? Monitor signs of bleeding at femoral site. Follow-up RFT's in the morning in the setting of contrast. #Hypothyroidism ? Continue home levothyroxine 100 mcg. Follow-up TFTs. #History of GI bleed #History of duodenal ulcer ? Continue home vonoprazan, misoprostol. #BPH ? Resume home tamsulosin. Full code DVT prophylaxis: Lovenox 40 mg Home medications: Restarted.
[2025-07-05] MEDS: ATORVASTATIN 40MG TABLET 40 MG PO (19:30)
[2025-07-05] MEDS: TAMSULOSIN 0.4MG CAPSULE 0.4 MG PO (19:30)
[2025-07-06] VITALS: PULSE 80
[2025-07-06 04:00] VITALS: BP 134/69; PULSE 85; PULSE 89; RESP 16; TEMP 36.9; O2SAT 97; BMI 41.5
[2025-07-06 06:23] LABS: Hematocrit 29.8 % (42.0-52.0); Immature Granulocytes % 0.4 %; Mean Corpuscular HGB Conc 29.9 g/dL (31.8-35.4); Mean Corpuscular Hemoglobin 24.6 pg (27.0-31.2); Mean Corpuscular Volume 82.3 fl (80-94); Nucleated Red Blood Cells % 0 %; Platelet Count 349 K/mm3 (142-424); Red Blood Count 3.62 M/mm3 (4.60-6.20); Red Cell Distribution Width-SD 49.0 fL; White Blood Count 8.3 K/mm3 (4.8-10.8)
[2025-07-06] MEDS: LEVOTHYROXINE 50MCG (0.05MG) TAB 50 MCG PO (06:24)
[2025-07-06 06:28] LABS: Albumin Level 4.0 g/dl (3.5-5.0); Chloride 107 mmol/L (98-107); Potassium 4.3 mmoL/L (3.5-5.1); Sodium 138 mmol/L (136-145)
[2025-07-06 06:30] LABS: Alanine Aminotransferase 13 U/L (12-78); Aspartate Amino Transferase 21 U/L (17-59); Blood Urea Nitrogen 20 mg/dl (9-20); Creatinine Clearance Estimated 39 mL/min (50-200); Creatinine,Serum 1.50 mg/dl (0.66-1.25); Estimated Glomerular Filt Rate 45 ml/min (>60); GFR (African American) 55 ML/MIN (>60)
[2025-07-06 06:31] LABS: Albumin/Globulin Ratio 1.7 (1.1-1.8); Alkaline Phosphatase 102 U/L (38-126); Anion Gap 11.3 mEq/L (5-15); Bilirubin,Total 0.7 mg/dl (0.2-1.3); Calcium 7.5 mg/dl (8.4-10.2); Carbon Dioxide 24 mmol/L (22.0-30.0); Cholesterol 65 mg/dl (140-200); Globulin 2.3 g/dL (1.3-3.2); Glucose 90 mg/dl (74-100); HDL Cholesterol 32 mg/dl (40-60); Iron 48 ug/dL (49-181); Magnesium 1.6 mg/dl (1.6-2.3); Total Protein,Serum 6.3 g/dl (6.3-8.2); Triglycerides 81 mg/dl (30-150)
[2025-07-06 06:36] LABS: Hemoglobin 9.2 g/dL (14.1-18.0)
[2025-07-06 06:41] LABS: Total Iron Binding Capacity 325 ug/dL (261-462)
[2025-07-06 06:42] LABS: Hemoglobin A1C 5.7 % (4.0-6.0)
[2025-07-06 07:21] LABS: NT Pro Brain Natriuretic Pep. 4080 pg/mL (0-450)
[2025-07-06 07:29] LABS: Free T4 (Free Thyroxine) 1.09 ng/dl (0.78-2.19)
[2025-07-06 08:00] VITALS: BP 122/61; PULSE 92; RESP 12; TEMP 37; O2SAT 97
[2025-07-06 08:12] VITALS: PULSE 90
[2025-07-06] MEDS: SPIRONOLACTONE 25MG TABLET 25 MG PO (08:56)
[2025-07-06] MEDS: FUROSEMIDE 20MG TABLET 20 MG PO (08:56)
[2025-07-06] MEDS: ISOSORBIDE MONO 30MG TAB.ER.24H 30 MG PO (08:56)
[2025-07-06] MEDS: DAPAGLIFLOZIN PROPANEDIOL 10 MG TABLET PO (08:56)
[2025-07-06] MEDS: ASPIRIN EC 81MG TABLET 81 MG PO (08:56)
[2025-07-06] MEDS: CLOPIDOGREL 75MG TAB 75 MG PO (08:56)
[2025-07-06] MEDS: METOPROLOL SUCCINATE XL 25MG TABLET 25 MG PO (08:56)
[2025-07-06] MEDS: MAGNESIUM SULFATE IN WATER 2 GM/50 ML PIGGYBACK IV ×2 (08:56→10:10)
[2025-07-06 09:00] VITALS: BMI 41.5
--- NOTE | 2025-07-06 10:50 | CA_ITS ---
FINAL REPORT TECHNIQUE: Arterial duplex Doppler evaluation of the right lower extremity with spectral analysis. CLINICAL HISTORY: check right groin for pseudoaneurysm, heart cath with right groin access Bleeding from groin site. FINDINGS: There is no evidence of pseudoaneurysm in the right groin. No significant hematoma is identified. The vessels are patent. IMPRESSION: No evidence of pseudoaneurysm. Reviewed, Interpreted and Dictated by Lior Magdaleno MD Transcribed by Mehnaz Prabhakar Authenticated and [facility]
--- NOTE | 2025-07-06 10:52 | EXP.CARD.CON ---
History of Present Illness History of Present Illness Consult date: 07/06/25 Requesting physician: Eliseo Jameson Consult reason: chest pain Chief complaint: chest pain Additional Medical History:: MV-CAD s/p NSTEMI and PCI 05/31/24 - LHC: 5 vessel stenting/reconstruction using 7 JAMIL (05/2024) HFrEF, Ischemic Cardiomyopathy/EF 40% with LVEDP of 30 mm Hg at time of LHC 05/2024 -Initial EF was 30% recovered to 45% now as of 11/2024, stable on echo, 02/2025 Contrast Inducated Nephropathy - creatinine 1.60 (08/2024) - Cr 1.8 02/2025 BLE Lymphedema - chronic, known dx. Obesity, BMI 41 - needs aggressive weight loss via diet and exercise. HLD - well controlled with LDL 35 (05/2024) - on statin Recurrent GI bleed, 02/2025 - EGD with ulcer banding, 03/14/2025 Carotid duplex 02/2025 Carotid stenosis classified less than 50% History of present illness: 80-year-old white male with known history of coronary artery disease was admitted postcardiac cath yesterday due to use of 6 [place] sheath and difficulty obtaining hemostasis post sheath pull. Patient denies any problems overnight and has had no further episodes of chest pain. He does have significant bruising in the right femoral area. We will obtain an arterial ultrasound to make sure there is no evidence of pseudoaneurysm. He does not have any back or lower abdominal discomfort. [facility] Disclaimer: The information contained in this section may have been updated after the patient was seen, as this information can be updated by other users. Medical History SOB (shortness of breath) Cardiovascular disease Bilateral lower leg cellulitis Lymphedema of both lower extremities Chronic acquired lymphedema UGIB (upper gastrointestinal bleed) PUD (peptic ulcer disease) Duodenitis Nausea and vomiting Nausea Encounter for laboratory testing for COVID-19 virus Diabetes mellitus Gastroenteritis and colitis, viral Dehydration PICC (peripherally inserted central catheter) in place Diabetic foot Multiple drug resistant organism (MDRO) culture positive Near syncope Cellulitis, leg Ingrowing Toenail Callus of foot Onychoincurvatum Onychodystrophy Pain around toenail, left foot Ingrowing Toenail Cellulitis of right leg Arthritis PAD (peripheral artery disease) HTN (hypertension), benign Heart murmur T2DM (type 2 diabetes mellitus) BPH (benign prostatic hyperplasia) Peripheral vascular disease Surgical History Hx of colonoscopy History of total left hip replacement Family History Other Cancer Heart attack Social History (Updated 07/05/25 @ 12:25 by Heather Patricio, RN) Smoking Status: Never smoker alcohol intake: never substance use type: denies use current occupational status: retired Travel in the last 8 weeks?: None household members: none housing: house current occupation: [employer] current occupational exposures/hazards: No caffeine: Yes Have you lived/traveled outside [place] in past 30 days?: No Contact w/someone who lives/traveled outside US past 30 days?: No Exposure to someone with infectious disease in past 14 days?: No Do you have a fever (greater than 100.4 F or 38 C)?: No Have you tested positive for COVID-19?: No Exposed to someone with COVID-19 in past 14 days?: No Do you have a sore throat?: No Do you have a cough?: No Do you have any weakness?: No Do you have any diarrhea?: No Are you experiencing any unusual bleeding?: No Do you have any muscle aches/pain?: No Do you have any abdominal pain?: No Are you experiencing loss of taste or smell?: No Review of Systems Review of Systems Review of systems:: pertinent systems reviewed and negative unless documented below *Cardiovascular Cardiovascular: Reports chest pain and Reports dyspnea on exertion *Respiratory Respiratory: Reports dyspnea on exertion Exam Data for Last 24 hours Vital signs and Labs for Last 24 Hours: Temp Pulse Resp BP Pulse Ox O2 Del Method O2 Flow Rate 98.6 F 90 12 122/61 97 Room Air 2 07/06/25 08:00 07/06/25 08:12 07/06/25 08:00 07/06/25 08:00 07/06/25 08:00 07/06/25 09:10 07/05/25 11:20 Laboratory Results - last 24 hr 07/05/25 11:22: Activated Clotting Time 251 H* 07/06/25 05:33: WBC 8.3, RBC 3.62 L, Hgb 9.2 L D, Hct 29.8 L, MCV 82.3, MCH 24.6 L, MCHC 29.9 L, RDW 16.4, Plt Count 349, MPV 9.0, Neut % (Auto) 65.9, Lymph % (Auto) 20.1, [place] % (Auto) 9.5 H, Eos % (Auto) 3.5, Baso % (Auto) 0.6, Neut # (Auto) 5.5, Lymph # (Auto) 1.7, [place] # (Auto) 0.8, Eos # (Auto) 0.3, Baso # (Auto) 0.1, Sodium 138, Potassium 4.3, Chloride 107, Carbon Dioxide 24, Anion Gap 11.3, BUN 20, Creatinine 1.50 H, Estimated Creat Clear 39, Estimated GFR 45 L, Est GFR ( Amer) 55 L, Glucose 90, Hemoglobin A1c 5.7, Calcium 7.5 L, Magnesium 1.6, Iron 48 L, TIBC 325, Iron Saturation 14.82608 L, Total Bilirubin 0.7, AST 21, ALT 13, Alkaline Phosphatase 102, NT-Pro-B Natriuret Pep 4080 H, Total Protein 6.3, Albumin 4.0, Globulin 2.3, Albumin/Globulin Ratio 1.7, Triglycerides 81, Cholesterol 65 L, LDL Cholesterol Direct < 30.00 L, VLDL Cholesterol 16, HDL Cholesterol 32 L, Cholesterol/HDL Ratio 2.0, Free T4 1.09 I & O for Last 24 hours: Intake & Output 07/03/25 07/04/25 07/05/25 07/06/25 11:59 11:59 11:59 11:59 Intake Total 500 / 500 900 / 900 Output Total 2000 / 1999 Balance 500 / 500 -1100 / -1100 Weight 280 lb 274 lb 9.583 oz Constitutional Constitutional: no acute distress *Routine Respiratory Exam Respiratory: Present CTA bilaterally *Routine Cardiovascular Exam Cardiovascular: Present RRR; Absent murmur, gallop or rubs *Routine Extremities Exam Extremities: Present edema Comments: thickened skin with edema of LE's. Significant bruising of right hip, lower abdomen, thigh and into medial groin. No appreciable pseudoaneurysm but significant fatty folds and patient discomfort from moist, raw areas in folds prevent adequate exam. *Routine Neurological Exam Neurological: Present alert, oriented X3 and CN II-XII intact Meds Home Medications and Allergies Home Medications ?Medication ?Instructions ?Recorded ?Confirmed ?Type furosemide 20 mg tablet 20 mg PO MOWEFR 08/17/24 07/05/25 History dapagliflozin propanediol 10 mg 10 mg PO DAILY #30 tabs 11/15/24 07/05/25 Rx tablet (Farxiga) nitroglycerin 0.4 mg sublingual 0.4 mg sublingual Q5M PRN chest 12/13/24 07/05/25 Rx tablet pain #25 tabs levothyroxine 50 mcg tablet 50 mcg PO DAILYDM 02/28/25 07/05/25 History clopidogrel 75 mg tablet 75 mg PO DAILY #90 tabs 03/05/25 07/05/25 Rx misoprostol 100 mcg tablet 100 mcg PO Q6H 30 days #120 tabs 03/14/25 07/05/25 Rx atorvastatin 40 mg tablet 40 mg PO HS 30 days #30 tabs 06/27/25 07/05/25 Rx isosorbide mononitrate 30 mg 30 mg PO DAILY #30 tabs 06/27/25 07/05/25 Rx tablet,extended release 24 hr metoprolol succinate 25 mg 25 mg PO DAILY #30 tabs 06/27/25 07/05/25 Rx tablet,extended release 24 hr vonoprazan 20 mg tablet (Voquezna) 20 mg PO DAILY 06/27/25 07/05/25 History spironolactone 25 mg tablet 25 mg PO DAILY 07/05/25 07/05/25 History tamsulosin 0.4 mg capsule 0.4 mg PO HS 07/05/25 07/05/25 History aspirin 81 mg tablet,delayed 81 mg PO DAILY 30 days #30 tabs 07/06/25 Rx release New Prescriptions to Start Prescriptions: Eliseo Wolfe Allergies Allergy/AdvReac Type Severity Reaction Status Date / Time Antihistamines - Alkylamine Allergy Mild MADE SKIN Verified 06/27/25 10:45 (ANTIHISTAMINES - ALKYLAMINE) FEEL LIKE ON FIRE NSAIDS (Non-Steroidal AdvReac Severe kidney Verified 06/27/25 10:45 Anti-Inflamma failure Assessment and Plan *Assessment and plan (1) SOB (shortness of breath): Status: Acute Category: Medical Code(s): R06.02 - Shortness of breath (2) CAD (coronary artery disease): Status: Acute Qualifiers: Associated angina: without angina Coronary Disease-Associated Artery/Lesion type: [place] artery [place] vs. transplanted heart: [place] heart Qualified Code(s): I25.10 - Atherosclerotic heart disease of [place] coronary artery without angina pectoris Category: Medical Code(s): I25.10 - Atherosclerotic heart disease of [place] coronary artery without angina pectoris (3) HFrEF (heart failure with reduced ejection fraction): Status: Acute Category: Medical Code(s): I50.20 - Unspecified systolic (congestive) heart failure (4) Hypertension: Status: Chronic Qualifiers: Hypertension type: unspecified Qualified Code(s): I10 - Essential (primary) hypertension Category: Medical Code(s): I10 - Essential (primary) hypertension (5) Stage III chronic kidney disease: Status: Chronic Qualifiers: Chronic kidney disease stage 3 subtype: stage 3a (GFR 45-59) Qualified Code(s): N18.31 - Chronic kidney disease, stage 3a Category: Medical Code(s): N18.30 - Chronic kidney disease, stage 3 unspecified Plan 1. CAD -JAMIL to RCA, 07/05/2025 -check right groin ultrasound to confirm no pseudoaneurysm 2. HFrEF, -BNP 4000 -clinically stable with LVEDP at cath 20 mmHg -continue current home lasix dosing 3. Chronic anemia -hemoglobin stable between 9-10 4. CKD with creatinine 1.5 -stable 5. Hyperlipidemia with LDL less than 30 -on statin Cardiac status stable for discharge home if right groin ultrasound confirms no pseudoaneurysm. Follow-up in 1 week. Resume home medications: Aspirin 81 mg daily Plavix 75 mg daily Atorvastatin 40 mg daily Furosemide 20 mg on Wednesday Farxiga 10 mg daily Valsartan 80 mg daily Metoprolol succinate 25 mg daily Ok to stop isosorbide mononitrate
--- NOTE | 2025-07-06 11:14 | EXP.DC.SUM ---
General Admission date:: 07/05/25 HPI HPI HPI: Riki Mckeon is a 79-year-old male with medical history significant for CAD with multiple stents, HFrEF, hypothyroidism, duodenal ulcer, BPH, GI bleed who presented as an outpatient coronary angiography and received 1 JAMIL to RCA. LAD continues to have severe stenosis but Dr. Conway recommended medical management. LVEDP also noted. On my evaluation of patient after procedure, he was sitting in bed comfortably eating dinner. Denies chest pain, shortness of breath. He was noted to have lower extremity edema which he states is chronic. BNP pending at this time. CBC, CMP relatively unremarkable for acute findings. Dr. Conway recommended admission and monitoring overnight in setting of CKD. Hospital Course Hospital Course Hospital Course: Riki Mckeon is a 79-year-old male with medical history significant for CAD with multiple stents, HFrEF, hypothyroidism, duodenal ulcer, BPH, GI bleed who presented as an outpatient coronary angiography and received 1 JAMIL to RCA. LAD continues to have severe stenosis but Dr. Conway recommended medical management. LVEDP also noted. On my evaluation of patient after procedure, he was sitting in bed comfortably eating dinner. Denies chest pain, shortness of breath. He was noted to have lower extremity edema which he states is chronic. BNP pending at this time. CBC, CMP relatively unremarkable for acute findings. Dr. Conway recommended admission and monitoring overnight in setting of CKD and for bleeding. #CAD with multiple stents #HFrEF 40 to 45% #Hypertension ? Presented as an outpatient coronary angiography and received 1 JAMIL to RCA. LAD continues to have severe stenosis but Dr. Conway recommended medical management. Elevated LVEDP also noted. ? Started Plavix 75 mg, continue aspirin 81 mg, atorvastatin 40 mg, metoprolol succinate 25 mg, spironolactone 25 mg, Farxiga 10 mg, Lasix 20 mg MW. Discontinued Imdur 30 mg per cardiology recommendation. ? Given one-time dose of IV Lasix 40 mg for elevated LVEDP. BNP 4080, slightly increased lower extremity pitting edema though a lot of this is chronic and has underlying lymphedema. ? A1c 5.7, LDL less than 30, TSH normal. ? No events overnight. Patient feels well today. No chest pain, shortness of breath. Renal function stable. Has moderate bruising at right femoral site, arterial ultrasound negative for pseudoaneurysm. ? Follow-up with cardiology within 2 weeks. #Iron deficiency anemia #History of GI bleed #History of duodenal ulcer ? Hemoglobin 9.2, MCV 82, ferritin 10.6. Patient has a history of GI bleed, duodenal ulcer. ? Given IV Venofer 200 mg, started ferrous sulfate 325 mg twice daily with MiraLAX. ? Continue home vonoprazan, misoprostol. #Hypothyroidism ? Continue home levothyroxine 100 mcg. TFTs normal. #BPH ? Resume home tamsulosin. Exam Data for Last 24 hours Vital signs and Labs for Last 24 Hours: Temp Pulse Resp BP Pulse Ox O2 Del Method O2 Flow Rate 98.6 F 90 12 122/61 97 Room Air 2 07/06/25 08:00 07/06/25 08:12 07/06/25 08:00 07/06/25 08:00 07/06/25 08:00 07/06/25 09:10 07/05/25 11:20 Laboratory Results - last 24 hr 07/05/25 11:22: Activated Clotting Time 251 H* 07/06/25 05:33: WBC 8.3, RBC 3.62 L, Hgb 9.2 L D, Hct 29.8 L, MCV 82.3, MCH 24.6 L, MCHC 29.9 L, RDW 16.4, Plt Count 349, MPV 9.0, Neut % (Auto) 65.9, Lymph % (Auto) 20.1, [place] % (Auto) 9.5 H, Eos % (Auto) 3.5, Baso % (Auto) 0.6, Neut # (Auto) 5.5, Lymph # (Auto) 1.7, [place] # (Auto) 0.8, Eos # (Auto) 0.3, Baso # (Auto) 0.1, Sodium 138, Potassium 4.3, Chloride 107, Carbon Dioxide 24, Anion Gap 11.3, BUN 20, Creatinine 1.50 H, Estimated Creat Clear 39, Estimated GFR 45 L, Est GFR ( Amer) 55 L, Glucose 90, Hemoglobin A1c 5.7, Calcium 7.5 L, Magnesium 1.6, Iron 48 L, TIBC 325, Iron Saturation 14.88296 L, Total Bilirubin 0.7, AST 21, ALT 13, Alkaline Phosphatase 102, NT-Pro-B Natriuret Pep 4080 H, Total Protein 6.3, Albumin 4.0, Globulin 2.3, Albumin/Globulin Ratio 1.7, Triglycerides 81, Cholesterol 65 L, LDL Cholesterol Direct < 30.00 L, VLDL Cholesterol 16, HDL Cholesterol 32 L, Cholesterol/HDL Ratio 2.0, Free T4 1.09 I & O for Last 24 hours: Intake & Output 07/03/25 07/04/25 07/05/25 07/06/25 23:59 23:59 23:59 23:59 Intake Total 1100 / 1100 350 / 350 Output Total 1150 / 1150 850 / 850 Balance -50 / -50 -500 / -500 Weight 123.377 kg 124.556 kg Constitutional Constitutional: no acute distress, obese and chronically ill appearing *Routine HEENT Exam Head: Present normocephalic Eye: Present EOMI and PERRL ENT: Present mucous membranes moist *Routine Neck Exam Neck: Present supple; Absent lymphadenopathy *Routine Respiratory Exam Respiratory: Present CTA bilaterally *Routine Cardiovascular Exam Cardiovascular: Present RRR *Routine Abdominal Exam Abdominal: Present soft and normoactive bowel sounds; Absent tenderness *Routine Extremities Exam Extremities: Present edema; Absent cyanosis or clubbing *Routine Skin Exam Skin: Present warm; Absent rash *Routine Neurological Exam Neurological: Present alert and oriented X3 Results Data Completed and Pending Labs on day of discharge: Labs from last 24 hours 07/06/25 07/05/25 05:33 11:22 WBC 8.3 RBC 3.62 L Hgb 9.2 L D Hct 29.8 L MCV 82.3 MCH 24.6 L MCHC 29.9 L RDW 16.4 Plt Count 349 MPV 9.0 Neut % (Auto) 65.9 Lymph % (Auto) 20.1 [place] % (Auto) 9.5 H Eos % (Auto) 3.5 Baso % (Auto) 0.6 Neut # (Auto) 5.5 Lymph # (Auto) 1.7 [place] # (Auto) 0.8 Eos # (Auto) 0.3 Baso # (Auto) 0.1 Activated Clotting Time 251 H* Sodium 138 Potassium 4.3 Chloride 107 Carbon Dioxide 24 Anion Gap 11.3 BUN 20 Creatinine 1.50 H Estimated Creat Clear 39 Estimated GFR 45 L Est GFR ( Amer) 55 L Glucose 90 Hemoglobin A1c 5.7 Calcium 7.5 L Magnesium 1.6 Iron 48 L TIBC 325 Iron Saturation 14.02319 L Total Bilirubin 0.7 AST 21 ALT 13 Alkaline Phosphatase 102 NT-Pro-B Natriuret Pep 4080 H Total Protein 6.3 Albumin 4.0 Globulin 2.3 Albumin/Globulin Ratio 1.7 Triglycerides 81 Cholesterol 65 L LDL Cholesterol Direct < 30.00 L VLDL Cholesterol 16 HDL Cholesterol 32 L Cholesterol/HDL Ratio 2.0 Free T4 1.09 DS: Diagnosis Discharge Diagnosis (1) SOB (shortness of breath): Status: Acute Code(s): R06.02 - Shortness of breath (2) CAD (coronary artery disease): Status: Acute Code(s): I25.10 - Atherosclerotic heart disease of [place] coronary artery without angina pectoris Qualifiers: Associated angina: without angina Coronary Disease-Associated Artery/Lesion type: [place] artery [place] vs. transplanted heart: [place] heart Qualified Code(s): I25.10 - Atherosclerotic heart disease of [place] coronary artery without angina pectoris (3) HFrEF (heart failure with reduced ejection fraction): Status: Acute Code(s): I50.20 - Unspecified systolic (congestive) heart failure (4) Hypertension: Status: Chronic Code(s): I10 - Essential (primary) hypertension Qualifiers: Hypertension type: unspecified Qualified Code(s): I10 - Essential (primary) hypertension (5) Stage III chronic kidney disease: Status: Chronic Code(s): N18.30 - Chronic kidney disease, stage 3 unspecified Qualifiers: Chronic kidney disease stage 3 subtype: stage 3a (GFR 45-59) Qualified Code(s): N18.31 - Chronic kidney disease, stage 3a Meds Home Medications and Allergies Home Medications ?Medication ?Instructions ?Recorded ?Confirmed ?Type furosemide 20 mg tablet 20 mg PO MOWEFR 08/17/24 07/05/25 History dapagliflozin propanediol 10 mg 10 mg PO DAILY #30 tabs 11/15/24 07/05/25 Rx tablet (Farxiga) nitroglycerin 0.4 mg sublingual 0.4 mg sublingual Q5M PRN chest 12/13/24 07/05/25 Rx tablet pain #25 tabs levothyroxine 50 mcg tablet 50 mcg PO DAILYDM 02/28/25 07/05/25 History clopidogrel 75 mg tablet 75 mg PO DAILY #90 tabs 03/05/25 07/05/25 Rx misoprostol 100 mcg tablet 100 mcg PO Q6H 30 days #120 tabs 03/14/25 07/05/25 Rx atorvastatin 40 mg tablet 40 mg PO HS 30 days #30 tabs 06/27/25 07/05/25 Rx metoprolol succinate 25 mg 25 mg PO DAILY #30 tabs 06/27/25 07/05/25 Rx tablet,extended release 24 hr vonoprazan 20 mg tablet (Voquezna) 20 mg PO DAILY 06/27/25 07/05/25 History spironolactone 25 mg tablet 25 mg PO DAILY 07/05/25 07/05/25 History tamsulosin 0.4 mg capsule 0.4 mg PO HS 07/05/25 07/05/25 History aspirin 81 mg tablet,delayed 81 mg PO DAILY 30 days #30 tabs 07/06/25 Rx release ferrous sulfate 325 mg (65 mg 325 mg PO BID #60 tabs 07/06/25 Rx iron) tablet polyethylene glycol 3350 17 17 g PO DAILY #119 grams 07/06/25 Rx gram/dose oral powder (Miralax) New Prescriptions to Start Prescriptions: Eliseo Wolfe ferrous sulfate Eliseo Jameson polyethylene glycol 3350 [Miralax] Eliseo Jameson Allergies Allergy/AdvReac Type Severity Reaction Status Date / Time Antihistamines - Alkylamine Allergy Mild MADE SKIN Verified 06/27/25 10:45 (ANTIHISTAMINES - ALKYLAMINE) FEEL LIKE ON FIRE NSAIDS (Non-Steroidal AdvReac Severe kidney Verified 06/27/25 10:45 Anti-Inflamma failure Discharge Plan Disposition Patient Disposition: Home, Self-Care Condition: Fair Follow up Plan Follow up with: Jeffrey Conway MD [Staff Physician, Cardiology] - 07/12/25 2:30 pm Prescriptions/Medication Reconciliation: New aspirin 81 mg Tablet,Delayed Release (Dr/Ec) 81 mg PO DAILY 30 Days Qty: 30 0RF ferrous sulfate 325 mg (65 mg iron) tablet 325 mg PO BID Qty: 60 0RF polyethylene glycol 3350 [Miralax] 17 gram/dose powder 17 g PO DAILY Qty: 119 0RF Continued furosemide 20 mg tablet 20 mg PO MOWE Patient Comments: TAKE ONE TABLET BY MOUTH ON MONDAYS, WEDNESDAY AND FRIDAYS dapagliflozin propanediol [Farxiga] 10 mg tablet 10 mg PO DAILY Qty: 30 5RF nitroglycerin 0.4 mg tablet, sublingual 0.4 mg sublingual Q5M PRN (Reason: chest pain) Qty: 25 0RF Rx Instructions: do not exceed 3 doses per episode Voquezna 20 mg tablet 20 mg PO DAILY metoprolol succinate 25 mg tablet extended release 24 hr 25 mg PO DAILY Qty: 30 2RF atorvastatin 40 mg tablet 40 mg PO HS 30 Days Qty: 30 5RF levothyroxine 50 mcg tablet 50 mcg PO DAILYDM clopidogrel 75 mg tablet 75 mg PO DAILY Qty: 90 3RF misoprostol 100 mcg Tablet 100 mcg PO Q6H 30 Days Qty: 120 0RF spironolactone 25 mg tablet 25 mg PO DAILY Patient Comments: TAKE 1 TABLET BY MOUTH ONCE DAILY tamsulosin 0.4 mg capsule 0.4 mg PO HS Patient Comments: TAKE 1 CAPSULE BY MOUTH ONCE DAILY Discontinued isosorbide mononitrate 30 mg tablet extended release 24 hr 30 mg PO DAILY Qty: 30 2RF Problem Reconciliation Problems Reviewed?: Yes Patient Discharge Instructions Patient Instructions: DI for Cardiac Catheterization, DI for Moderate Sedation, DI for Coronary Artery Disease, DI for Post-Surgical Bleeding, Stop Light Heart Failure, Stop Light Infection Print Language: Romanian Providers Primary Care Provider: Gasper [place] Admit Provider: Eliseo Jameson Attending Provider: Eliseo Jameson
[2025-07-06 12:00] VITALS: BP 133/82; PULSE 88; RESP 14; TEMP 36.8; O2SAT 97
[2025-07-06 12:03] VITALS: PULSE 90
[2025-07-06 12:36] LABS: Thyroid Stimulating Hormone 3.49 uIU/mL (0.465-4.68)
[2025-07-06 12:40] LABS: Ferritin 10.6 ng/ml (17.9-464)
[2025-07-06] MEDS: IRON SUCROSE COMPLEX 200 MG in 0.9 % SODIUM CHLORIDE 100 ML 220 MG IV (13:28)
[2025-07-06] MEDS: FUROSEMIDE 40MG/4ML VIAL 40 MG IV (13:29)
--- NOTE | 2025-07-09 11:31 | SW/DCPLANNER ---
Spoke with patient on the phone. Patient stated that he is doing well. Patient stated that he is aware of his upcoming appointments. Patient stated that he was able to get his new medicine picked up from the pharmacy. Patient stated that he has no concerns or questions at this time. Beverly Pittman
--- NOTE | 2025-07-20 11:17 | PC.NURSE ---
07/13/2025 called pt 2 times and left voice mails. no returned call
--- NOTE | 2025-08-06 12:31 | PC.NURSE ---
08/06/2025 Called pt 2 shaheen and left voice mail. No response
== END 2025-07-06 14:35 | disposition home or self-care (01) ==
LOC: 2ND 11:24
PROVIDERS: Internal Medicine; Admitting Provider Student in an Organized Health Care Education/Training Program; PCP Internal Medicine Adolescent Medicine; Visit Provider Student in an Organized Health Care Education/Training Program
PROC: 4A023N7 Measurement of Cardiac Sampling and Pressure, Left Heart, Percutaneous Approach (ICD-10-PCS; CPT 93452; principal; 2025-07-05 07:00)
DX: I25.118 Atherosclerotic heart disease of native coronary artery with other forms of angina pectoris (principal); R06.02 Shortness of breath; I13.0 Hypertensive heart and chronic kidney disease with heart failure and stage 1 through stage 4 chronic kidney disease, or unspecified chronic kidney disease; E11.22 Type 2 diabetes mellitus with diabetic chronic kidney disease; N18.31 Chronic kidney disease, stage 3a; I50.20 Unspecified systolic (congestive) heart failure; N40.0 Benign prostatic hyperplasia without lower urinary tract symptoms; E03.9 Hypothyroidism, unspecified; I25.2 Old myocardial infarction; R07.9 Chest pain, unspecified; I89.0 Lymphedema, not elsewhere classified; D50.9 Iron deficiency anemia, unspecified; E78.5 Hyperlipidemia, unspecified; E66.01 Morbid (severe) obesity due to excess calories; Z68.41 Body mass index [BMI] 40.0-44.9, adult; Z95.5 Presence of coronary angioplasty implant and graft; Z79.899 Other long term (current) drug therapy; Z79.890 Hormone replacement therapy; Z88.6 Allergy status to analgesic agent; Z88.8 Allergy status to other drugs, medicaments and biological substances; Z79.82 Long term (current) use of aspirin; Z79.02 Long term (current) use of antithrombotics/antiplatelets; Z87.19 Personal history of other diseases of the digestive system
CPT/HCPCS: 80048; 80053; 80061; 82728; 83036; 83540; 83550; 83735; 83880; 84439; 84443; 85025; 85347; 92928; 93458; 93926; 96365; 96366; 96367; 96372; 96374; 99152; 99153; C1725; C1760; C1769; C1874; C1887; C1894; C9600; G0378; J1644; J1650; J1756; J1938; J2720; J3010; J3475; J7040; Q9967

== ENCOUNTER 2025-07-20 13:24 | Outpatient (CLI) | payer MEDICARE, SELFPAY ==
--- NOTE | 2025-07-20 13:45 | CA_ITS ---
APPROVED REPORT EXAM: Comprehensive 2D, Doppler, and color-flow Echocardiogram [place]: VIVIEN Vincent, RVS Ht: 5 ft 5 in Wt: 274lbs BSA: 2.26 BP: 135/74 mmHg Indications: CAD-stents, HTN, Edema 2D Dimensions IVSd 1.13 cm LVEF (Visual) 31.00 % PWd 1.20 cm LA Volume 95.10 mL LVDd 5.54 cm LA Volume Index 42.701477 mL/m2 (M/F) 16-34 LVDs 4.72 cm Left Atrium 4.19 cm M-Mode Dimensions LA Diam 4.13 cm (1.9-4.0) LVDd 6.66 cm (3.5-5.7) LVDs 5.37 cm (3.5-5.7) IVSd 1.14 cm (0.6-1.1) EF (Teich) 38.90% EPSs 0.81 cm FS 19.40% EDV (Teich) 228.20 mL TAPSE 2.12 (<1.7) ESV (Teich) 139.50 mL LV Diastology E Decel Time 117 (160-240 msec) E/A Ratio 1.01 MED A' 10.50 cm/s LAT A' 9.70 cm/s Aortic Valve AMRIT Index 1.07 cm2/m2 AoV Peak Reynaldo. 156.0 (50-130 cm/s) AO Peak GR. 9.70 mmHg AO Mean GR. 4.70 (<5 mmHg) AO VTI 30.3 (18-25 cm) AMRIT (VTI) 2.49 (2.5-4.5 cm2) Mitral Valve MV A Velocity 133.0 (40-130 cm/s) E/A Ratio 1.01 Pulmonary Valve PV Peak Velocity 85.0 (50-150 cm/s) Left Ventricle The left ventricle is normal size. Left ventricular systolic function is low-normal. There is increased left ventricular wall thickness. There is normal LV segmental wall motion. Transmitral Doppler flow pattern suggests impaired LV relaxation. LVEF is 50% Right Ventricle The right ventricle is normal size. The right ventricular systolic function is normal. Atria The left atrium size is normal. The right atrium size is normal. There is no color Doppler evidence of interatrial shunt. Aortic Valve The aortic valve opens well. There is no hemodynamically significant aortic valvular stenosis. No aortic regurgitation is present. Mitral Valve The mitral valve is normal in structure. No evidence of mitral valve stenosis. Mild mitral regurgitation is present. Tricuspid Valve The tricuspid valve leaflets are thin and pliable. Trace tricuspid regurgitation. There is insufficient TR jet to estimate RVSP. Pulmonic Valve The pulmonary valve is grossly normal in structure. Trace pulmonic valve regurgitation is present. Great Vessels The aortic root is normal in size. IVC is normal in size and collapses >50% with inspiration. Pericardium There is no pericardial effusion. Other Information Study Quality: Fair Conclusion Low-normal LV systolic function (LVEF 50%). Mild MR. Electronically signed by : Florence Miller MD 07/29/2025 21:51:05
== END 2025-07-20 23:59 | disposition home or self-care (01) ==
LOC: RT 13:25
PROVIDERS: PCP Internal Medicine Adolescent Medicine; Visit Provider Physician Assistant
DX: I34.0 Nonrheumatic mitral (valve) insufficiency (principal); I11.0 Hypertensive heart disease with heart failure; I50.20 Unspecified systolic (congestive) heart failure; I25.10 Atherosclerotic heart disease of native coronary artery without angina pectoris; Z95.5 Presence of coronary angioplasty implant and graft
CPT/HCPCS: 93306

== ENCOUNTER 2025-08-07 13:39 | Outpatient (RCR) | payer MEDICARE, SELFPAY ==
--- NOTE | 2025-08-07 14:42 | HMH.OPLYMPH ---
Rehab Lymphedema Evaluation Rehab Lymphedema Evaluation Start: 08/07/25 14:30 Freq: Status: Active Protocol: Document 08/07/25 14:30 PAWAN (Rec: 08/07/25 14:42 PHORRIANNA [id number]) E-signed By Jarad Gomes, PT Subjective/History History History This is the initial PT lymphedema eval for Riki Mckeon, 80 yowm who presents with B LE chronic lymphedema. He reports finn has increased edema intermittently due to prolonged dependent positioning of his legs. He states, I can't sleep laying down because I can't breath, so I have to sit up in a chair to sleep. He presents to the clinic this date with minimal fibrotic edema in B LE and no c/o faviola due to edema at this time. He has significant PMH of CAD with multiple stents, CVI, chronic lymphedema. He previously suffered from extensive B lower leg stasis ulcers for many years consistently, but he has not had any issues in ~2 yrs. Subjective Subjective Currently no c/o pain, 0/10, in B LE. He presents with mild fibrotic edema and mild erythema to B lower legs, but this is baseline for him. No current pitting edema noted. Mild hyperkeratosis noted, but he also has considerable B lower leg scar tissue due to years of stasis ulcers. LLIS score: 23 Lymphedema Eval Classification of Lymphedema Secondary Lymphedema Yes Stemmer's sign Stemmer's Sign yes Stage of Lymphedema Lymphedema stages Stage II (Pitting edema, increased fibrosis w/ decreased pitting) Skin Changes Dry Skin Yes Hyperkeratosis Yes Papillomatosis Yes Redness Yes Other Changes Yes Pain Scale Pain Scale (0-10) 0 Affected Extremities Areas Affected by Right Lower Extremity,Left Lower Extremity Lymphedema/Edema Lower Extremity Measurements Right MTP Measurement (cm) 26.5 Heel Measurement (cm 37.7 ) 10 cm Proximal to 28.5 Lateral Malleoli Measurement (cm) 20 cm Proximal to 39.5 Lateral Malleoli Measurement (cm) 30 cm Proximal to 45.0 Lateral Malleoli Measurement (cm) 40 cm Proximal to 0 Lateral Malleoli Measurement (cm) 50 cm Proximal to 0 Lateral Malleoli Measurement (cm) 60 cm Proximal to 0 Lateral Malleoli Measurement (cm) Lower Extremity 177.2 Measurement Total ( cm) Left MTP Measurement (cm) 28.1 Heel Measurement (cm 38.7 ) 10 cm Proximal to 29.6 Lateral Malleoli Measurement (cm) 20 cm Proximal to 39.7 Lateral Malleoli Measurement (cm) 30 cm Proximal to 42.4 Lateral Malleoli Measurement (cm) 40 cm Proximal to 0 Lateral Malleoli Measurement (cm) 50 cm Proximal to 0 Lateral Malleoli Measurement (cm) 60 cm Proximal to 0 Lateral Malleoli Measurement (cm) Lower Extremity 178.5 Measurement Total ( cm) Wound Problems/Impairments Impairments Problems/ Impaired Range of Motion,Impaired Strength,Impaired Impairmments Endurance,Impaired Transfers,Impaired Gait Pattern, Impaired Walking,Impaired Standing,Impaired Sitting, Impaired Lifting,Impaired Dressing,Impaired Shower/ Bathing,Impaired Household Care,Impaired Stair Climbing ,Impaired Incline Stepping,Impaired Stepping on Uneven Surface,Impaired Recreational Activities,Impaired Work Activities,Lymphedema Present,Impaired Self Care/Self Management Prognosis Rehab Potential Good Comment Currently pt has no need for skilled therapy services as his chronic lymphedema is well controlled at this time and he has compression garments at home that he can use to maintain his current condition without intervention. Clinical Impression Consistent with Yes Diagnosis Lymphedema Patient Goals Lymphedema Patient Goals Lymphedema Short No Goals need at this time. Term Patient Goals Outpatient Therapy Plan of Care Treatment Plan May Include Eval/Re-Eval Yes Frequency Times per week 0 Duration Number of Weeks 0 Addendums This patient is a No candidate for social or vocational rehab ? Patient/Guardian Yes verbally acknowledges understanding of treatment program and consents to further treatment? Patient/Guardian Yes verbally acknowledges understanding of diagnosis, prognosis and goals for treatment? Eval Complexity PT Charges 57185 - High Complexity PHYSICIAN CERTIFICATION: I certify the specified therapy services for Riki Mckeon are required, authorized, and reviewed every 30 days.
== END 2025-08-07 23:59 | disposition home or self-care (01) ==
LOC: PT 13:39
PROVIDERS: PCP Internal Medicine Adolescent Medicine; Visit Provider Physician Assistant
DX: I89.0 Lymphedema, not elsewhere classified (principal)
CPT/HCPCS: 97163

== ENCOUNTER 2025-08-08 09:55 | Outpatient (CLI) | payer MEDICARE, SELFPAY ==
[2025-08-08 10:25] LABS: Blood Urea Nitrogen 21 mg/dl (9-20); Creatinine,Serum 1.60 mg/dl (0.66-1.25); Estimated Glomerular Filt Rate 42 ml/min (>60); GFR (African American) 51 ML/MIN (>60)
--- NOTE | 2025-08-08 10:30 | MR_ITS ---
APPROVED REPORT Senior Portfolio Analyst: CLINICAL INDICATION Cardiomyopathy evaluation TECHNIQUE Image Acquisition: Cardiac magnetic resonance (CMR) was performed on Siemens Espree MRI 1.5T scanner. Software platform sequences were performed using the Siemens Bosideng MR B19 platform. A set of three-plane, low-resolution, large [id number] localizers were initially acquired. Then axial, coronal, sagittal TrueFISP, as well as axial HASTE images, were obtained. These were followed by gated TrueFISP breathold cinematic sequences obtained in the short axis with 8 mm slices and 2 mm gaps, 2-chamber (vertical long axis), 3-chamber, 4-chamber (horizontal long axis). A bolus of contrast was injected intravenously with first-pass sequences obtained in the short axis and four-chamber planes. After approximately 10 minutes, a TI flexible machining system machinist sequence was performed to determine the optimal TI time. Using the optimized TI time, delayed contrast enhancement segmented inversion???recovery TurboFLASH sequences were obtained in the short axis, 2-chamber, 3-chamber, and 4-chamber projections. 2D-velocity phase mapping was performed. Functional parameters were calculated by offline analysis on an independent workstation ([employer], [employer]). Contrast: ProHance??? (Gadoteridol) FINDINGS MORPHOLOGY AND FUNCTION Left ventricle: The left ventricle is mildly dilated. The indexed left ventricular end-diastolic volume (LVEDVi) is 94 ml/m2 (reference range 57-105 ml/m2 in males, 56-96 ml/m2 in females). Mild reduction in left ventricular systolic function is present. There is normal left ventricular wall thickness. The lateral, inferolateral, and anterolateral LV charlton are severely hypokinetic. LVEF is calculated at 40.4% (reference range 57-77%). Right ventricle: The right ventricle is normal in size. The indexed right ventricular end-diastolic volume (RVEDVi) is 61 ml/m2 (reference range 61-121 ml/m2 in males, 48-112 ml/m2 in females). Mild reduction in right ventricular systolic function is present. RVEF is calculated at 44.5% (reference range 52-72% in males, 51-71% in females). Atria: The left atrium is mildly dilated. The maximum indexed left atrial volume is 39 ml/m2 (reference range 26-52 ml/m2 in males, 27-53 ml/m2 in females). The right atrium is normal in size. The maximum indexed right atrial volume is 19 ml/m2 (reference range 18-90 ml/m2). Aorta: The diameter of the aortic annulus is normal, measuring 23 mm (coronal view reference range 21-30 mm in males, 19-27 mm in females). The diameter of the aortic sinus is normal, measuring 25 mm (coronal view reference range 25-42 mm in males, 24-36 mm in females). The diameter of the sinotubular junction is normal, measuring 30 mm (coronal view reference range 18-32 mm in males, 18-28 mm in females). The diameters of the ascending and descending thoracic aorta are normal. Main pulmonary artery: The main pulmonary artery diameter is normal. Pericardium: The pericardial thickness is normal. The pericardial thickness measures 1.0 mm (normal < 4.0 mm). There is no pericardial effusion. VALVES The valvular morphologies in the visualized sequences appear normal. There is no significant valvular stenosis or regurgitation of the mitral, aortic, tricuspid, or pulmonic valve noted visually. Systolic anterior motion of the mitral valve is not visualized. Ratio of pulmonary to systemic flow, Qp:Qs ratio = 1.22 (normal < or = 1.2, hemodynamically significant shunt > 1.5), demonstrating no evidence of hemodynamically significant shunt. TISSUE CHARACTERIZATION Resting Perfusion: Resting hypoperfusion is present in the basal lateral, inferolateral, and anterolateral LV charlton. Myocardial Fibrosis and/or edema: There is subendocardial late gadolinium enhancement present in the basal to mid lateral, inferolateral, and anterolateral LV charlton, consistent with absence of myocardial scarring due to prior infarct. The LGE occupies 25% of the total myocardial thickness, suggestive of viability of the corresponding tissue. T2-weighted imaging demonstrates no evidence of myocardial edema or inflammation. OTHER No other significant findings are noted. However, this exam is focused on the cardiac structure and function. IMPRESSION Mild LV dilation with mild reduction in LV systolic function. LVEDVi= 94 ml/m2 and LVEF= 40.4%. Severe hypokinesis of the basal to mid lateral and inferolateral LV charlton. Normal RV size with mild reduction in RV systolic function. RVEDVi= 61 ml/m2 and RVEF= 44.5%. Left atrial enlargement. Subendocardial late gadolinium enhancement present in the basal to mid lateral, inferolateral, and anterolateral LV charlton, consistent with absence of myocardial scarring due to prior infarct. The LGE occupies 25% of the total myocardial thickness (i.e. < 50%), suggestive of viability of the corresponding tissue. Resting hypoperfusion is present in the basal lateral, inferolateral, and anterolateral LV charlton. Ratio of pulmonary to systemic flow, Qp:Qs ratio = 1.22 (normal < or = 1.2, hemodynamically significant shunt > 1.5), demonstrating no evidence of hemodynamically significant shunt. 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 Perfusion and LGE analysis are suggestive of hypoperfusion, along with presence of viable tissue, in the corresponding region. Revascularization may be considered to improve LV systolic function, if deemed clinically feasible and appropriate per clinician discretion. COMPARISON None CRITICAL RESULT None COMMUNICATION The above findings were relayed to the patient at the time of the routine outpatient cardiology follow-up visit, prior to dictation of this report. The findings of this cardiac MR were reviewed, reported, and signed by Dhaval Miller MD ([employer]). Conclusion Electronically signed by : Florence Miller MD 08/28/2025 19:22:48
[2025-08-08] MEDS: 0.9 % SODIUM CHLORIDE 50 ML VIAL 10 ML IV (12:12)
[2025-08-08] MEDS: GADOTERIDOL INJ 20ML SYRINGE 27 ML IV (12:13)
== END 2025-08-08 23:59 | disposition home or self-care (01) ==
LOC: RAD 09:56
PROVIDERS: PCP Internal Medicine Adolescent Medicine; Visit Provider Physician Assistant
DX: I25.2 Old myocardial infarction (principal); I50.20 Unspecified systolic (congestive) heart failure; I42.9 Cardiomyopathy, unspecified; R63.5 Abnormal weight gain; R93.1 Abnormal findings on diagnostic imaging of heart and coronary circulation; Z96.642 Presence of left artificial hip joint
CPT/HCPCS: 36415; 75561; 82565; 84520; A9576